=== PATIENT | male | born 1960 | race Caucasian/White ===

== ENCOUNTER → 2018-03-06 16:19 | Outpatient (CLI) | payer BC, SELFPAY ==
[2018-03-06 17:34] LABS: ALB/GLOB Ratio 1.3 RATIO (0.9-2.4); AST(SGOT) 26 U/L (15-37); Alanine Aminotransfer ALT/SGPT 54 U/L (16-61); Albumin, Serum 4.4 g/dL (3.2-5.0); Alkaline Phosphatase 49 U/L (45-117); Anion Gap 10 (5-15); BUN 15 mg/dL (7-18); BUN/Creat Ratio 15.4 RATIO (10-20); Calcium,Total 9.1 mg/dL (8.5-10.1); Chloride 107 mmol/L (98-107); Cholesterol 159 mg/dL (200); Creatinine, Serum 0.97 mg/dL (0.70-1.30); EST Glomerular Filtration Rate 85 mL/min (>60); Est Glom Filt Rate - Afr Amer 103 mL/min (>60); Globulin 3.5 g/dL (2.2-4.2); Glucose 149 mg/dL (74-106); High Density Lipoprotein 35 mg/dL; Protein, Total 7.9 g/dL (6.4-8.2); Sodium Level 140 mmol/L (136-145); Triglycerides 194 mg/dL; Very Low Density Lipoprotein 39 mg/dL (5-40)
[2018-03-06 17:42] LABS: Hemoglobin A1c 7.3 % (4.2-6.3)
== END ==
PROVIDERS: Family Provider Family Medicine; PCP Family Medicine; Visit Provider Family Medicine
DX: E11.9 Type 2 diabetes mellitus without complications (principal); I10 Essential (primary) hypertension; E66.01 Morbid (severe) obesity due to excess calories; R73.9 Hyperglycemia, unspecified
CPT/HCPCS: 36415; 80053; 80061; 82043; 82570; 83036

== ENCOUNTER → 2018-07-11 16:00 | Outpatient (CLI) | payer BC, SELFPAY ==
[2016-02-15 14:44] VITALS: BMI 38.7
[2018-07-11 17:28] LABS: ALB/GLOB Ratio 1.3 RATIO (0.9-2.4); AST(SGOT) 29 U/L (15-37); Alanine Aminotransfer ALT/SGPT 48 U/L (16-61); Albumin, Serum 4.4 g/dL (3.2-5.0); Alkaline Phosphatase 43 U/L (45-117); Anion Gap 11 (5-15); BUN 12 mg/dL (7-18); BUN/Creat Ratio 14.2 RATIO (10-20); Chloride 103 mmol/L (98-107); Cholesterol 166 mg/dL (200); Creatinine, Serum 0.85 mg/dL (0.70-1.30); EST Glomerular Filtration Rate 99 mL/min (>60); Est Glom Filt Rate - Afr Amer 120 mL/min (>60); Globulin 3.3 g/dL (2.2-4.2); Glucose 129 mg/dL (74-106); High Density Lipoprotein 42 mg/dL; Protein, Total 7.7 g/dL (6.4-8.2); Sodium Level 138 mmol/L (136-145); Triglycerides 127 mg/dL; Very Low Density Lipoprotein 25 mg/dL (5-40)
[2018-07-11 17:32] LABS: Hemoglobin A1c 7.8 % (4.2-6.3)
[2018-07-11 17:39] LABS: Microalbumin,Random Urine 51.8 mg/L (NO RANGE EST.); Microalbumin:Creatinine Ratio 236.5 mg/g CRE (<30 mg/g CRE)
== END ==
PROVIDERS: Family Provider Family Medicine; PCP Family Medicine; Referring Provider Family Medicine; Visit Provider Family Medicine
DX: I10 Essential (primary) hypertension (principal); E11.21 Type 2 diabetes mellitus with diabetic nephropathy
CPT/HCPCS: 36415; 80053; 80061; 82043; 82570; 83036

== ENCOUNTER 2022-12-08 16:44 | Inpatient (IN) | payer OTHER, SELFPAY ==
[2022-12-08] VITALS (9 sets, daily range): BP systolic 134–192; BP diastolic 88–111; PULSE 82–99; RESP 12–22; TEMP 35.4–37.1; O2SAT 93–99; BMI 38.5; BMI 38.9
--- NOTE | 2022-12-08 16:59 | CT_ITS ---
STUDY: CT ABDOMEN AND PELVIS WITH CONTRAST REASON FOR EXAM: Male, 62 years old. abdominal pain RADIATION DOSAGE (If Supplied By Facility): CTDIvol = ( 33.00 ) mGy, DLP = ( 1821.63 ) mGycm TECHNIQUE: Transaxial images were obtained from the dome of the diaphragm to the symphysis pubis without oral contrast. IV 100mL Isovue-300 was administered. Sagittal and coronal images were reconstructed. Individualized dose optimization techniques were used for this CT. COMPARISON: 02/08/2016 FINDINGS: The visualized lung bases are unremarkable. The visualized portions of the heart are within normal limits. Normal liver. There is non-visualization of the gallbladder, which may be secondary to either contraction or a prior cholecystectomy. Normal spleen. Normal pancreas. Normal bilateral adrenal glands. Normal right kidney. Normal left kidney. There is a small hiatal hernia. Normal small intestine. Normal colon. The appendix is visualized and appears normal. Normal abdominal aorta. Normal inferior vena cava. Normal retroperitoneum. Normal urinary bladder. Normal abdominal wall. Normal osseous structures. CT/Abdomen/Pelvis W IV Cont ONLY IMPRESSION: No acute abnormality. Small hiatal hernia. Electronically Signed: Cristopher Thomas MD at 19:29 EDT ,
[2022-12-08] MEDS: Morphine 4 MG/ML Syringe IV (17:06)
[2022-12-08] MEDS: Ondansetron 4 MG/2 ML Vial IV ×2 (17:06→21:07)
[2022-12-08] MEDS: 0.9% Normal Saline 1,000 ML 1000 ML IV (17:06)
--- NOTE | 2022-12-08 17:14 | EDS_ITS ---
HPI <MARIS Weber - Last Filed: 12/08/22 21:07> History of Present Illness Chief Complaint: Nausea/Vomiting Narrative Narrative: Patient is a 62-year-old male with history of type 2 diabetes who presents to the emergency department with 3 days of abdominal pain, nausea, vomiting, diarrhea. Patient states he had severe diarrhea 3 days ago, he felt better on the second day, however then he developed severe vomiting, today he went to work, started having lower abdominal pain and continued to have vomiting. Patient states that he became very sweaty, the pain was severe and is here for evaluation. PFS <MARIS Weber - Last Filed: 12/08/22 21:07> [facility] Medical History (Updated 12/08/22 @ 21:05 by MARIS Weber) Type 2 diabetes mellitus Home Medications metformin 500 mg tablet 500 mg PO BIDCM 09/28/15 [History Last Taken 11/13/15] pantoprazole 40 mg tablet,delayed release 40 mg PO DAILY 11/22/15 [History Last Taken Unknown] promethazine 25 mg tablet 25 mg PO Q6H PRN PRN Nausea ##10 02/08/16 [Rx Last Taken Unknown] azithromycin 500 mg tablet (Zithromax) 500 mg PO DAILY #3 tabs 02/15/16 [Rx Last Taken Unknown] dicyclomine 10 mg capsule 20 mg (2 x 10 mg) PO TIDAC ##20 02/15/16 [Rx Last Taken Unknown] magnesium citrate 300 ml PO X1 #300 mL 02/15/16 [Rx Last Taken Unknown] ondansetron 4 mg disintegrating tablet 4 mg PO Q8H PRN PRN Nausea #10 tabs 02/15/16 [Rx Last Taken Unknown] dicyclomine 20 mg tablet 20 mg PO TID #20 tabs 12/08/22 [Rx Last Taken Unknown] ondansetron 4 mg disintegrating tablet 4 mg PO Q8H PRN PRN Nausea #14 tabs 12/08/22 [Rx Last Taken Unknown] Allergy/AdvReac Type Severity Reaction Status Date / Time No Known Allergies Allergy Verified 12/08/22 16:45 Surgical History (Updated 12/08/22 @ 17:11 by Waldemar Lai) History of cholecystectomy Social History Smoking Status: Former smoker ROS <MARIS Weber - Last Filed: 12/08/22 21:07> ROS ED ROS Narrative Constitutional: Negative for fever, weight loss, weakness. Positive for chills Eyes: Negative for vision loss, vision change, double vision ENT: Negative for any sore throat, ear pain, congestion Cardiovascular: Negative for any chest pain, tightness, palpitations Respiratory: Negative for any cough, sputum production, hemoptysis, dyspnea, dyspnea on exertion, orthopnea Gastrointestinal: Negative for any constipation, blood in stool, blood in vomit. Positive for abdominal pain, nausea, vomiting, diarrhea : Negative for any urinary frequency, dysuria, retention, blood in urine Muscle skeletal: Negative for any muscle joint pain, stiffness, myalgias, arthralgias, neck pain, back pain Neurological: Negative for any headache, syncope, numbness or tingling, dizziness Skin: Negative for any rashes, lumps, itching, abrasions, lacerations Psychiatric: Negative for any depression, anxiety, stress, suicidal ideation, homicidal ideation Hematologic: Negative for any easy bruising, excessive bruising, easy bleeding Allergies: Negative for any eczema, hives, rash EXAM <MARIS Weber - Last Filed: 12/08/22 21:07> Physical Exam Narrative Exam Narrative: Vital signs reviewed. Patient on initial evaluation does appear to be in mild distress secondary to pain to his abdomen. Patient is diaphoretic. He is alert and orient x4. HEET: Head normocephalic atraumatic, TMs clear bilaterally. Posterior pharynx is clear, moist mucous membranes. Nares clear bilaterally. Neck: Supple with no lymphadenopathy or tenderness. No signs of meningismus, negative jolt sign. Cardiac: Regular rate and rhythm no murmurs gallops or rubs, equal peripheral pulses bilaterally. Respiratory: Lungs clear to auscultation bilaterally. No chest tenderness. Abdomen: Soft, nondistended. No abdominal bruit or pulsatile masses. No hepatosplenomegaly. Tenderness to the periumbilical area as well as the left lower quadrant. Negative for any peritoneal signs. Extremities: No peripheral edema, no signs of gross trauma or deformity. Active full range of motion of all extremities. Neuro: Cranial nerves II through XII intact, no focal neurological deficits. Skin: Clean dry and intact with no rash, purpura, petechiae, vesicles or pustules. Backs/flank: No CVA tenderness, no midline spinal tenderness, no deformity. Psych: Normal mood and affect. No SI, HI or acute psychosis. Const Vital Signs: 12/08/22 16:45 12/08/22 18:07 12/08/22 18:34 Temperature 95.7 F L 98.3 F 98.8 F Temperature Source Temporal Oral Oral Pulse Rate 82 87 87 Respiratory Rate 22 H 12 12 Blood Pressure 185/94 H 134/111 H 192/104 H Blood Pressure Mean 124 118 133 Pulse Ox 98 98 93 Oxygen Delivery Method Room Air Nasal Cannula Nasal Cannula Oxygen Flow Rate (L/min) 2 2 12/08/22 20:00 Temperature 98.2 F Temperature Source Oral Pulse Rate 94 Respiratory Rate 16 Blood Pressure 184/95 H Blood Pressure Mean 124 Pulse Ox 99 Oxygen Delivery Method Nasal Cannula Oxygen Flow Rate (L/min) 1 Positive well nourished and well developed General Appearance ED: well developed <Dr. Rosanna Abraham MD - Last Filed: 12/08/22 21:54> Physical Exam Const Vital Signs: 12/08/22 16:45 12/08/22 18:07 12/08/22 18:34 Temperature 95.7 F L 98.3 F 98.8 F Temperature Source Temporal Oral Oral Pulse Rate 82 87 87 Respiratory Rate 22 H 12 12 Blood Pressure 185/94 H 134/111 H 192/104 H Blood Pressure Mean 124 118 133 Pulse Ox 98 98 93 Oxygen Delivery Method Room Air Nasal Cannula Nasal Cannula Oxygen Flow Rate (L/min) 2 2 12/08/22 20:00 Temperature 98.2 F Temperature Source Oral Pulse Rate 94 Respiratory Rate 16 Blood Pressure 184/95 H Blood Pressure Mean 124 Pulse Ox 99 Oxygen Delivery Method Nasal Cannula Oxygen Flow Rate (L/min) 1 [facility] <MARIS Weber - Last Filed: 12/08/22 21:07> [facility] Lab Data Labs: Laboratory Results - last 24 hr 12/08/22 12/08/22 12/08/22 17:05 17:26 18:35 WBC 6.6 RBC 5.11 Hgb 16.0 Hct 45.9 MCV 89.8 MCH 31.3 MCHC 34.9 RDW Std Deviation 37.2 RDW Coeff of Billy 11.3 L Plt Count 175 MPV 10.8 Immature Gran % (Auto) 0.500 Neut % (Auto) 68.1 Lymph % (Auto) 21.1 [place] % (Auto) 8.9 Eos % (Auto) 0.6 Baso % (Auto) 0.8 Absolute Neuts (auto) 4.5 Absolute Lymphs (auto) 1.38 Nucleated RBC % 0 Sodium 136 Potassium 4.4 Chloride 102 Carbon Dioxide 25.0 Anion Gap 9 BUN 20 H Creatinine 1.20 Estim Creat Clear Calc 68.85 Est GFR (MDRD) Af Amer 79 Est GFR (MDRD) Non-Af 65 BUN/Creatinine Ratio 16.7 Glucose 260 H Lactic Acid 2.5 H* Calcium 10.0 Total Bilirubin 1.30 H AST 20 ALT 29 Alkaline Phosphatase 54 Total Protein 7.9 Albumin 4.3 Globulin 3.6 Albumin/Globulin Ratio 1.2 Lipase 76 H Urine Color Yellow Urine Clarity Sl. Cloudy Urine pH 7.0 Ur Specific [place] 1.010 Urine Protein 30 H Urine Glucose (UA) 1000 H Urine Ketones 50 H Urine Occult Blood 10 H Urine Nitrite Negative Urine Bilirubin Negative Urine Urobilinogen Normal Ur Leukocyte Esterase Negative Urine RBC 0 SEEN Urine WBC 0 SEEN Ur Squamous Epith Cells 0 SEEN Urine Bacteria 0 SEEN Urine Mucus 0 SEEN POC Glucose 275 H 12/08/22 21:20 WBC RBC Hgb Hct MCV MCH MCHC RDW Std Deviation RDW Coeff of Billy Plt Count MPV Immature Gran % (Auto) Neut % (Auto) Lymph % (Auto) [place] % (Auto) Eos % (Auto) Baso % (Auto) Absolute Neuts (auto) Absolute Lymphs (auto) Nucleated RBC % Sodium Potassium Chloride Carbon Dioxide Anion Gap BUN Creatinine Estim Creat Clear Calc Est GFR (MDRD) Af Amer Est GFR (MDRD) Non-Af BUN/Creatinine Ratio Glucose Lactic Acid 1.8 Calcium Total Bilirubin AST ALT Alkaline Phosphatase Total Protein Albumin Globulin Albumin/Globulin Ratio Lipase Urine Color Urine Clarity Urine pH Ur Specific [place] Urine Protein Urine Glucose (UA) Urine Ketones Urine Occult Blood Urine Nitrite Urine Bilirubin Urine Urobilinogen Ur Leukocyte Esterase Urine RBC Urine WBC Ur Squamous Epith Cells Urine Bacteria Urine Mucus POC Glucose Radiography Diagnostic Testing: Clinical Impression(s) from Imaging Studies Abdomen/Pelvis CT 12/08/22 16:59 IMPRESSION: No acute abnormality. Small hiatal hernia. Electronically Signed: Cristopher Thomas MD at 19:29 EDT , Treatment and Re-Evaluation :: Patient appears to be in mild distress secondary to abdominal pain. Patient presents to the emerged from abdominal pain, nausea, vomiting of diarrhea for last 3 days. Patient will have a full abdominal work-up. This to include laboratory values acute lactic acid. Patient also received a CT scan of the abdomen pelvis concerning for any diverticulitis, bowel obstruction. Patient laboratory values show normal CBC, patient's chemistry showed a BUN of 20, creatinine unremarkable. Glucose 260, patient's lactic acid was elevated 2.5. Total bilirubin 1.3. Lipase was 76. Patient did receive a CT scan of the abdomen pelvis, this showed no acute abnormality, small hiatal hernia. Patient's urinalysis shows no infection. On reevaluation, the patient still had nausea. Patient was given morphine, Zofran, Phenergan. On reassessment, the patient's blood pressure is improved. Patient states he still feels nauseated. Patient was redosed with IV Zofran, 1 more liter normal saline IV. On reassessment, the patient was feeling better, the patient is able to pass a p.o. challenge. At this time, there is no evidence suspect any appendicitis, bowel obstruction, diverticulitis, pancreatitis. Patient be diagnosed with gastroenteritis, we placed on Bentyl, Zofran. He is instructed to maintain hydration, and follow-up with his PCP regarding his blood pressure today. Patient is happy with the plan of care, all questions given. Patient stable for discharge <Dr. Rosanna Abraham MD - Last Filed: 12/08/22 21:54> [facility] Lab Data Labs: Laboratory Results - last 24 hr 12/08/22 12/08/22 12/08/22 17:05 17:26 18:35 WBC 6.6 RBC 5.11 Hgb 16.0 Hct 45.9 MCV 89.8 MCH 31.3 MCHC 34.9 RDW Std Deviation 37.2 RDW Coeff of Billy 11.3 L Plt Count 175 MPV 10.8 Immature Gran % (Auto) 0.500 Neut % (Auto) 68.1 Lymph % (Auto) 21.1 [place] % (Auto) 8.9 Eos % (Auto) 0.6 Baso % (Auto) 0.8 Absolute Neuts (auto) 4.5 Absolute Lymphs (auto) 1.38 Nucleated RBC % 0 Sodium 136 Potassium 4.4 Chloride 102 Carbon Dioxide 25.0 Anion Gap 9 BUN 20 H Creatinine 1.20 Estim Creat Clear Calc 68.85 Est GFR (MDRD) Af Amer 79 Est GFR (MDRD) Non-Af 65 BUN/Creatinine Ratio 16.7 Glucose 260 H Lactic Acid 2.5 H* Calcium 10.0 Total Bilirubin 1.30 H AST 20 ALT 29 Alkaline Phosphatase 54 Total Protein 7.9 Albumin 4.3 Globulin 3.6 Albumin/Globulin Ratio 1.2 Lipase 76 H Urine Color Yellow Urine Clarity Sl. Cloudy Urine pH 7.0 Ur Specific [place] 1.010 Urine Protein 30 H Urine Glucose (UA) 1000 H Urine Ketones 50 H Urine Occult Blood 10 H Urine Nitrite Negative Urine Bilirubin Negative Urine Urobilinogen Normal Ur Leukocyte Esterase Negative Urine RBC 0 SEEN Urine WBC 0 SEEN Ur Squamous Epith Cells 0 SEEN Urine Bacteria 0 SEEN Urine Mucus 0 SEEN POC Glucose 275 H 12/08/22 21:20 WBC RBC Hgb Hct MCV MCH MCHC RDW Std Deviation RDW Coeff of Billy Plt Count MPV Immature Gran % (Auto) Neut % (Auto) Lymph % (Auto) [place] % (Auto) Eos % (Auto) Baso % (Auto) Absolute Neuts (auto) Absolute Lymphs (auto) Nucleated RBC % Sodium Potassium Chloride Carbon Dioxide Anion Gap BUN Creatinine Estim Creat Clear Calc Est GFR (MDRD) Af Amer Est GFR (MDRD) Non-Af BUN/Creatinine Ratio Glucose Lactic Acid 1.8 Calcium Total Bilirubin AST ALT Alkaline Phosphatase Total Protein Albumin Globulin Albumin/Globulin Ratio Lipase Urine Color Urine Clarity Urine pH Ur Specific [place] Urine Protein Urine Glucose (UA) Urine Ketones Urine Occult Blood Urine Nitrite Urine Bilirubin Urine Urobilinogen Ur Leukocyte Esterase Urine RBC Urine WBC Ur Squamous Epith Cells Urine Bacteria Urine Mucus POC Glucose Radiography Diagnostic Testing: Clinical Impression(s) from Imaging Studies Abdomen/Pelvis CT 12/08/22 16:59 IMPRESSION: No acute abnormality. Small hiatal hernia. Electronically Signed: Cristopher Thomas MD at 19:29 EDT , Treatment and Re-Evaluation :: Patient appears to be in mild distress secondary to abdominal pain. Patient presents to the emerged from abdominal pain, nausea, vomiting of diarrhea for last 3 days. Patient will have a full abdominal work-up. This to include laboratory values acute lactic acid. Patient also received a CT scan of the abdomen pelvis concerning for any diverticulitis, bowel obstruction. Patient laboratory values show normal CBC, patient's chemistry showed a BUN of 20, creatinine unremarkable. Glucose 260, patient's lactic acid was elevated 2.5. Total bilirubin 1.3. Lipase was 76. Patient did receive a CT scan of the abdomen pelvis, this showed no acute abnormality, small hiatal hernia. Patient's urinalysis shows no infection. On reevaluation, the patient still had nausea. Patient was given morphine, Zofran, Phenergan. On reassessment, the patient's blood pressure is improved. Patient states he still feels nauseated. Patient was redosed with IV Zofran, 1 more liter normal saline IV. Patient seen and evaluated with [facility]. I personally interviewed and examined the patient. I was involved in all aspects of patient's orders, interpretation of results, and treatment. Patient presents with recent gastro symptoms. He has had recent nausea, vomiting, and diarrhea. He thought he is improved and went back to work today. He developed nausea and vomiting again and presents to the emergency room. He does complain of some lower abdominal cramping. No fever. Only prior abdominal surgery was a cholecystectomy. Patient sitting upright in bed. He appears pale and diaphoretic. Head and neck examination unremarkable. Heart is regular rate and rhythm. Lung sounds are clear. Abdomen is soft, obese, minimal lower abdominal tenderness. No guarding or rebound. CBC was normal white count at 6.6 with hemoglobin of 16. LFTs are unremarkable. Creatinine is 1.2. Glucose is 260. Lactic acid is elevated at 2.5. Lipase is 76. Urinalysis reveals no evidence of acute infection with 50 ketones. After being medicated with morphine and Zofran patient did develop some mild hypoxia associated with sedation. He was placed on nasal cannula for short time. Due to continued nausea he was given Phenergan. CT scan of the abdomen and pelvis with IV contrast reveals no acute findings. Again due to continued nausea he received Zofran and another liter of fluid. Repeat lactic acid is improved to 1.8. At this time patient sitting at the side of the bed. He continues to feel nauseated and has not been able to tolerate p.o. Having been given 3 rounds of nausea medication and still feeling quite nauseated I will speak with hospitalist regarding observation overnight. Patient was also noted to be quite hypertensive with systolic blood pressures in the 190 range. He was given a single dose of hydralazine which improved his blood pressure to the 160s for a time. He states his blood pressure normally runs on the high end of normal. This will need to be closely monitored as well. Discharge Plan Dx/Rx/DC Orders Clinical Impression: Nausea & vomiting, Abdominal pain, Hypertension Disposition Disposition: Acute Care Hospital [facility]
[2022-12-08 17:20] LABS: Absolute Lymphocyte Count 1.38 X10^3/uL (0.83-4.51); Absolute Neutrophil Count 4.5 X10^3/uL (2.0-7.7); Basophil# 0.05 X10^3/uL; Basophil% 0.8 % (0-1); Eosinophil# 0.04 X10^3/uL; Eosinophils% 0.6 % (0-5); Hematocrit 45.9 % (40-54); Lymphocyte # 1.38 X10^3/ul (0.83-4.51); Lymphocyte % 21.1 % (19-41); Mean Corp Hgb Conc 34.9 g/dL (32-36); Mean Corpuscular Hgb 31.3 pg (27.0-32.0); Mean Corpuscular Volume 89.8 fL (80-94); Mean Platelet Vol. 10.8 fl (6.2-12.0); Monocyte# 0.58 X10^3/uL; Monocyte% 8.9 % (0-10); NRBC Flagged by Analyzer 0 % (0-5); Neutrophil # 4.47 X10^3/uL (2.7-7.7); Neutrophil % 68.1 % (47-70); Platelet Count 175 K/mm3 (150-450); RBC Distribution Width CV 11.3 % (11.6-14.6); RBC Distribution Width SD 37.2 fl (35.1-43.9); Red Blood Count 5.11 M/mm3 (4.6-6.2); White Blood Count 6.6 K/mm3 (4.4-11.0)
[2022-12-08 17:30] LABS: ALB/GLOB Ratio 1.2 RATIO (0.9-2.4); AST(SGOT) 20 U/L (15-37); Alanine Aminotransfer ALT/SGPT 29 U/L (16-61); Albumin, Serum 4.3 g/dL (3.2-5.0); Alkaline Phosphatase 54 U/L (45-117); Anion Gap 9 (5-15); BUN 20 mg/dL (7-18); BUN/Creat Ratio 16.7 RATIO (10-20); Chloride 102 mmol/L (98-107); EST Glomerular Filtration Rate 65 mL/min (>60); Est Glom Filt Rate - Afr Amer 79 mL/min (>60); Estimated Creatinine Clearance 68.85 ml/min; Globulin 3.6 g/dL (2.2-4.2); Glucose 260 mg/dL (74-106); Lipase 76 U/L (13-75); Potassium 4.4 mmol/L (3.5-5.1); Protein, Total 7.9 g/dL (6.4-8.2); Sodium Level 136 mmol/L (136-145)
[2022-12-08] MEDS: proMETHazine 25 MG/ML Syringe 12.5 MG IM (17:34)
[2022-12-08 17:47] LABS: Bedside Glucose 275 mg/dL (74-106)
[2022-12-08 18:02] LABS: Lactic Acid 2.5 mmol/L (0.4-1.9)
[2022-12-08 18:38] LABS: Bacteria 0 SEEN /hpf (None Seen); Mucous, Urine 0 SEEN /hpf (<or=2+); Red Blood Cells-Urine 0 SEEN /hpf (0-5); Squamous Epithelial Cells - UA 0 SEEN /hpf (0-5); White Blood Cells 0 SEEN /hpf (0-5)
[2022-12-08 18:39] LABS: Color, Urine Yellow (Yellow); Glucose, Dipstick 1000 mg/dl (Normal); Ketone-Dipstick 50 mg/dl (Negative); Leukocyte Esterase-Dipstick Negative /ul (Negative); Nitrite-Dipstick Negative (Negative); Occult Blood-Urine 10 /ul (Negative); Protein-Dipstick 30 mg/dl (Negative); Urine Bilirubin Dipstick Negative (Negative); Urine Clarity Sl. Cloudy (Clear); Urine Urobilinogen Normal (Normal)
[2022-12-08] MEDS: hydrALAZINE 20 MG/ML Vial 10 MG IV ×2 (19:04→23:58)
[2022-12-08 21:08] LABS: Reflex Lactate? Y
[2022-12-08] MEDS: 0.9% Normal Saline 1,000 ML 999 ML IV (21:09)
[2022-12-08 21:50] LABS: Lactic Acid 1.8 mmol/L (0.4-1.9)
--- NOTE | 2022-12-08 22:03 | HP.PCM.HOS_ITS ---
HPI - General General Date of Admission: 12/08/22 Date of Service: 12/08/22 Chief Complaint: Intractable N/V/D, abdominal pain. HPI Narrative The patient is a 62 y/o M w/ PMHx: GERD, Former tobacco use, Obesity, Diabetes mellitus type II, HTN, JUANA who presents to the [facility] ED on 12/08/22 with history of 3 days of persistent abdominal discomfort, nausea, emesis and loose stools with more severe diarrhea approximately 3 days ago with improvement of his loose stools however he then developed significant vomiting and on day of presentation had worsening lower abdominal discomfort with pain so severe he reports being at work and becoming very diaphoretic prompting ED evaluation. He notes he had a soft bowel movement today and it appears to be normalizing. He does still have abdominal discomfort primarily epigastric and proximal to his umbilicus described as aching, worse with palpation. He does state he has had hiccups today frequently. Work-up in the ED included T95.7 Temporally with most recent 98.2 orally, heart rate 82, BP 185/94, respiratory rate 22, 98% on room air however most recent assessment BP 184/95, respiratory rate 16, 99% on 1 L nasal cannula, CBC with WC 6.6, hemoglobin 16, platelet 175 without marked shift, CMP with BUN/creatinine 20/1.20, anion gap 9, glucose 260, initial lactic acid 2.5 and repeat following ED interventions and hydration 1.8, T. bili 1.30 otherwise hepatic profile unremarkable, lipase 76, urinalysis with specific gravity 1.010, protein 30, glucose 1000, ketone 50, occult blood 10 with no obvious evidence of UTI, CT abdomen and pelvis with no acute intra-abdominal findings and incidentally noted small hiatal hernia. In the ED patient ministered 2 L normal saline, hydralazine 10 mg IV x1, morphine 4 mg IV x1, Zofran 4 mg IV x2, Phenergan 12.5 mg IM x1. [facility] Medical History (Updated 12/08/22 @ 22:[address] Kate Carrion MD) Former tobacco use GERD (gastroesophageal reflux disease) Hypertension Obesity JUANA (obstructive sleep apnea) Type 2 diabetes mellitus Home Medications metformin 500 mg tablet 500 mg PO BIDCM 09/28/15 [History Last Taken 11/13/15] pantoprazole 40 mg tablet,delayed release 40 mg PO DAILY 11/22/15 [History Last Taken Unknown] promethazine 25 mg tablet 25 mg PO Q6H PRN PRN Nausea ##10 02/08/16 [Rx Last Taken Unknown] azithromycin 500 mg tablet (Zithromax) 500 mg PO DAILY #3 tabs 02/15/16 [Rx Last Taken Unknown] dicyclomine 10 mg capsule 20 mg (2 x 10 mg) PO TIDAC ##20 02/15/16 [Rx Last Taken Unknown] magnesium citrate 300 ml PO X1 #300 mL 02/15/16 [Rx Last Taken Unknown] ondansetron 4 mg disintegrating tablet 4 mg PO Q8H PRN PRN Nausea #10 tabs 0 02/15/16 [Rx Last Taken Unknown] dicyclomine 20 mg tablet 20 mg PO TID #20 tabs 12/08/22 [Rx Last Taken Unknown] ondansetron 4 mg disintegrating tablet 4 mg PO Q8H PRN PRN Nausea #14 tabs 12/08/22 [Rx Last Taken Unknown] Allergy/AdvReac Type Severity Reaction Status Date / Time No Known Allergies Allergy Verified 12/08/22 16:45 Family History (Updated 12/08/22 @ 22:[address] Kate Carrion MD) Mother Diabetes Heart disease Cancer Father No problems noted. Surgical History (Updated 12/08/22 @ 22:[address] Kate Carrion MD) History of cholecystectomy History of surgery on lower extremity Social History (Updated 12/08/22 @ 23:[address] Kate Carrion MD) household members: other details: Notes his son lives with him. Smoking Status: Former smoker alcohol intake: never substance use type: does not use ROS ROS Narrative Admission Review of Systems: CONSTITUTIONAL: No weight loss, fever, chills, + weakness or fatigue. HEENT: Eyes: No visual loss, blurred vision, double vision or yellow sclerae. Ears, Nose, Throat: No hearing loss, sneezing, congestion, runny nose or sore throat. SKIN: No rash or itching, lesions, wounds. CARDIOVASCULAR: No chest pain, chest pressure or chest discomfort, palpitations, edema, orthopnea, syncopal events. RESPIRATORY: No shortness of breath, cough or sputum, wheezing, hemoptysis. GASTROINTESTINAL: + anorexia, nausea, vomiting, diarrhea, abdominal pain, hiccups intermittently, No melena, BRBPR. GENITOURINARY: No dysuria, frequency, urgency or retention. NEUROLOGICAL: No headache, dizziness, syncope, paralysis, ataxia, numbness or tingling in the extremities, focal weakness, change in bowel or bladder control, seizure. MUSCULOSKELETAL: No muscle, back pain, joint pain or stiffness. HEMATOLOGIC: No anemia, bleeding or bruising. LYMPHATICS: No enlarged nodes. No history of splenectomy. PSYCHIATRIC: No history of depression or anxiety. ENDOCRINOLOGIC: + reports of sweating. No cold or heat intolerance. No polyuria or polydipsia. ALLERGIES: No history of asthma, hives, eczema or rhinitis. Vital Signs Vital Signs Vital Signs: 12/08/22 16:45 12/08/22 18:07 12/08/22 18:34 Temperature 95.7 F L 98.3 F 98.8 F Temperature Source Temporal Oral Oral Pulse Rate 82 87 87 Respiratory Rate 22 H 12 12 Blood Pressure 185/94 H 134/111 H 192/104 H Blood Pressure Mean 124 118 133 Pulse Ox 98 98 93 Oxygen Delivery Method Room Air Nasal Cannula Nasal Cannula Oxygen Flow Rate (L/min) 2 2 12/08/22 20:00 Temperature 98.2 F Temperature Source Oral Pulse Rate 94 Respiratory Rate 16 Blood Pressure 184/95 H Blood Pressure Mean 124 Pulse Ox 99 Oxygen Delivery Method Nasal Cannula Oxygen Flow Rate (L/min) 1 Weight Weight: 276 lb 3.827 oz Body Mass Index (BMI) 38.5 Physical Exam Narrative Physical Examination: General: Awake, alert, oriented x 3 and cooperative, seated upright in ED chair, fatigued, ill appearing. Skin: Mildly diaphoretic, mildly flushed color, normal turgor, no icterus, no cyanosis. HEENT: AT/NC, EOMI, PERRLA, dry MM, no carotid bruits or JVD noted. Lungs: CTA bilaterally, moderate effort, mild decrease BL bases, no rales, ronchi or wheezing. Heart: Regular rate and rhythm; no gallop, rub audible. Abdomen: Soft, obese, mild discomfort to palpation epigastric and above the umbilicus region, no rebound or guarding, no obvious marked distention, hyperactive BS, no HSM although habitus does make evaluation difficult. Extremities: No cyanosis, clubbing, or edema. Neurological: Patient awake, alert, oriented as noted, cognitive function intact; pupils equally reactive to light and accommodation, cranial nerves II- XII grossly normal, moving all 4 extremities, no focal deficits, strength moderately globally decreased secondary to acute complaints. Psychiatric: Affect appears fatigued, ill appearing, no acute evidence of depressive or anxiety feelings. Results Lab / Micro Data 12/08/22 17:05 12/08/22 17:05 Labs: Laboratory Results - last 24 hr 12/08/22 17:05: WBC 6.6, RBC 5.11, Hgb 16.0, Hct 45.9, MCV 89.8, MCH 31.3, MCHC 34.9, RDW Std Deviation 37.2, RDW Coeff of Billy 11.3 L, Plt Count 175, MPV 10.8, Immature Gran % (Auto) 0.500, Neut % (Auto) 68.1, Lymph % (Auto) 21.1, [place] % (Auto) 8.9, Eos % (Auto) 0.6, Baso % (Auto) 0.8, Absolute Neuts (auto) 4.5, Absolute Lymphs (auto) 1.38, Nucleated RBC % 0, Sodium 136, Potassium 4.4, Chloride 102, Carbon Dioxide 25.0, Anion Gap 9, BUN 20 H, Creatinine 1.20, Estim Creat Clear Calc 68.85, Est GFR (MDRD) Af Amer 79, Est GFR (MDRD) Non-Af 65, BUN/Creatinine Ratio 16.7, Glucose 260 H, Lactic Acid 2.5 H*, Calcium 10.0, Total Bilirubin 1.30 H, AST 20, ALT 29, Alkaline Phosphatase 54, Total Protein 7.9, Albumin 4.3, Globulin 3.6, Albumin/Globulin Ratio 1.2, Lipase 76 H 12/08/22 17:26: POC Glucose 275 H 12/08/22 18:35: Urine Color Yellow, Urine Clarity Sl. Cloudy, Urine pH 7.0, Ur Specific [place] 1.010, Urine Protein 30 H, Urine Glucose (UA) 1000 H, Urine Ketones 50 H, Urine Occult Blood 10 H, Urine Nitrite Negative, Urine Bilirubin Negative, Urine Urobilinogen Normal, Ur Leukocyte Esterase Negative, Urine RBC 0 SEEN, Urine WBC 0 SEEN, Ur Squamous Epith Cells 0 SEEN, Urine Bacteria 0 SEEN, Urine Mucus 0 SEEN 12/08/22 21:20: Lactic Acid 1.8 Radiology Impression Abdomen/Pelvis CT 12/08/22 16:59 IMPRESSION: No acute abnormality. Small hiatal hernia. Electronically Signed: Cristopher Thomas MD at 19:29 EDT , Assessment & Plan Assessment/Plan (1) Nausea & vomiting: PLAN: Plan The patient is a 62 y/o M w/ PMHx: GERD, Former tobacco use, Obesity, Diabetes mellitus type II, HTN, JUANA who presents to the [facility] ED on 12/08/22 with history of 3 days of persistent abdominal discomfort, nausea, emesis and loose stools with more severe diarrhea approximately 3 days ago with improvement of his loose stools however he then developed significant vomiting and on day of presentation had worsening lower abdominal discomfort with pain so severe he reports being at work and becoming very diaphoretic prompting ED evaluation. #1. Abdominal pain, Nausea, Emesis, Diarrhea, Intractable, Unclear etiology, possibly Acute Gastroenteritis with Acute Lactic Acidosis secondary to associated dehydration: CT abdomen and pelvis with no acute intra-abdominal findings and incidentally noted small hiatal hernia. Will admit to [facility], will place on IV PPI, allow clears if improving and ADAT, PRN antiemetics, PRN pain regimen, continue aggressive hydration, will obtain c diff, stool cx, O+P with repeat AM CBC. If recurrent hiccups will have thorazine as needed. Will request troponin x 1. #2. Hypertension: History noted previously, from most recent home medication list attempted to be pulled from outpatient not on regimen, clarifying, as needed IV hydralazine in interim. #3. Diabetes mellitus type II: Hold oral home regimen, given acute presentation initiating on clears to start with advance diet as tolerated, maintain until oral intake improved on q 6h accu checks w/ ISS. #4. Obesity: Weight loss and lifestyle changes encouraged. #5. Former tobacco use: Encourage continued tobacco cessation. #6. GERD: We will maintain on IV PPI until oral intake assured/improved. #7. JUANA: Given recent intractable N/V, will hold q HS CPAP for now and may use supplemental oxygen as needed. #8. DVT prophylaxis: Low risk for current presentation, encourage ambulation. #9. CODE STATUS: Full Code. Patient does not have HCPOA or LW in place. Admission Evaluation Time spent evaluating chart, patient history, patient evaluation, care planning and discussion with specialists: 55 minutes. Charges/Coding Visit Charges Inpatient E&M: 05207 Init Hosp L2
[2022-12-08 23:20] LABS: Procalcitonin < 0.04 ng/mL (0.00-0.09)
[2022-12-08] MEDS: 0.9% Normal Saline 1,000 ML 100 ML IV (23:46)
[2022-12-08] MEDS: Insulin Lispro 100 UNIT/ML INSULN.PEN SC (23:48)
[2022-12-08] MEDS: proCHLORPERazine 10 MG/2 ML Vial 5 MG IV (23:56)
[2022-12-08 23:58] LABS: Troponin-I HS 28 pg/mL (3.0-78.0)
[2022-12-09] MEDS: MELATONIN 3 MG TABLET PO (00:01)
[2022-12-09 00:44] VITALS: BP 168/88; PULSE 110; RESP 22; TEMP 37.2; O2SAT 98
[2022-12-09 01:05] LABS: Bedside Glucose 271 mg/dL (74-106)
[2022-12-09] MEDS: Acetaminophen 325 MG Tablet 650 MG PO (02:44)
[2022-12-09 06:07] VITALS: BP 149/83; PULSE 100; RESP 20; TEMP 36.9; O2SAT 94
[2022-12-09 06:09] VITALS: BMI 38.7
[2022-12-09] MEDS: Insulin Lispro 100 UNIT/ML INSULN.PEN SC ×4 (06:15→23:15)
[2022-12-09 06:34] LABS: Bedside Glucose 260 mg/dL (74-106)
[2022-12-09 07:04] LABS: Absolute Lymphocyte Count 0.99 X10^3/uL (0.83-4.51); Absolute Neutrophil Count 6.1 X10^3/uL (2.0-7.7); Basophil# 0.02 X10^3/uL; Basophil% 0.3 % (0-1); Hematocrit 44.4 % (40-54); Hemoglobin 15.4 g/dL (13.0-16.5); Lymphocyte # 0.99 X10^3/ul (0.83-4.51); Lymphocyte % 12.7 % (19-41); Mean Corp Hgb Conc 34.7 g/dL (32-36); Mean Corpuscular Hgb 31.3 pg (27.0-32.0); Mean Corpuscular Volume 90.2 fL (80-94); Mean Platelet Vol. 11.1 fl (6.2-12.0); Monocyte% 7.7 % (0-10); NRBC Flagged by Analyzer 0 % (0-5); Neutrophil # 6.14 X10^3/uL (2.7-7.7); Neutrophil % 78.8 % (47-70); Platelet Count 181 K/mm3 (150-450); RBC Distribution Width CV 11.6 % (11.6-14.6); RBC Distribution Width SD 38.1 fl (35.1-43.9); Red Blood Count 4.92 M/mm3 (4.6-6.2); White Blood Count 7.8 K/mm3 (4.4-11.0)
[2022-12-09 07:30] VITALS: O2SAT 94
[2022-12-09 07:32] LABS: ALB/GLOB Ratio 1.1 RATIO (0.9-2.4); AST(SGOT) 14 U/L (15-37); Alanine Aminotransfer ALT/SGPT 24 U/L (16-61); Albumin, Serum 3.9 g/dL (3.2-5.0); Alkaline Phosphatase 48 U/L (45-117); Anion Gap 8 (5-15); BUN 18 mg/dL (7-18); BUN/Creat Ratio 17.6 RATIO (10-20); Calcium,Total 9.1 mg/dL (8.5-10.1); Chloride 105 mmol/L (98-107); Creatinine, Serum 1.02 mg/dL (0.70-1.30); EST Glomerular Filtration Rate 79 mL/min (>60); Est Glom Filt Rate - Afr Amer 95 mL/min (>60); Globulin 3.4 g/dL (2.2-4.2); Glucose 248 mg/dL (74-106); Potassium 3.8 mmol/L (3.5-5.1); Protein, Total 7.3 g/dL (6.4-8.2); Sodium Level 137 mmol/L (136-145)
--- NOTE | 2022-12-09 07:54 | PN.HOSP_ITS ---
Reason for Visit Reason for Visit: Diagnoses Nausea with vomiting, unspecified (12/08/22) Subjective Subjective Patient initially feeling better midmorning and had tolerated lunch and wanted to go home however several hours after lunch developed pain and nausea again patient was kept Objective Data Objective Data Vital Signs: Vital Signs Temp Pulse Resp BP Pulse Ox O2 Del Method O2 Flow Rate 98.4 F 100 20 H 149/83 H 94 Room Air 1 12/09/22 06:07 12/09/22 06:07 12/09/22 06:07 12/09/22 06:07 12/09/22 07:30 12/09/22 07:30 12/08/22 22:22 Oxygen Flow Rate (L/min) 1 Oxygen Delivery Method Room Air Weight: 125.827 kg Body Mass Index (BMI) 38.7 Intake & Output: Intake and Output for Last 24 Hours 12/07/22 12/08/22 12/09/22 23:59 23:59 23:59 Intake Total 1999 160 / 160 Output Total 600 / 600 Balance 1999 -440 / -440 Lab / Micro Data 12/09/22 05:26 12/09/22 05:26 Labs: Laboratory Results - last 24 hr 12/08/22 17:05: WBC 6.6, RBC 5.11, Hgb 16.0, Hct 45.9, MCV 89.8, MCH 31.3, MCHC 34.9, RDW Std Deviation 37.2, RDW Coeff of Billy 11.3 L, Plt Count 175, MPV 10.8, Immature Gran % (Auto) 0.500, Neut % (Auto) 68.1, Lymph % (Auto) 21.1, [place] % (Auto) 8.9, Eos % (Auto) 0.6, Baso % (Auto) 0.8, Absolute Neuts (auto) 4.5, Absolute Lymphs (auto) 1.38, Nucleated RBC % 0, Sodium 136, Potassium 4.4, Chlo ride 102, Carbon Dioxide 25.0, Anion Gap 9, BUN 20 H, Creatinine 1.20, Estim Creat Clear Calc 68.85, Est GFR (MDRD) Af Amer 79, Est GFR (MDRD) Non-Af 65, BUN/Creatinine Ratio 16.7, Glucose 260 H, Lactic Acid 2.5 H*, Calcium 10.0, Total Bilirubin 1.30 H, AST 20, ALT 29, Alkaline Phosphatase 54, Total Protein 7.9, Albumin 4.3, Globulin 3.6, Albumin/Globulin Ratio 1.2, Lipase 76 H 12/08/22 17:26: POC Glucose 275 H 12/08/22 18:35: Urine Color Yellow, Urine Clarity Sl. Cloudy, Urine pH 7.0, Ur Specific [place] 1.010, Urine Protein 30 H, Urine Glucose (UA) 1000 H, Urine Ketones 50 H, Urine Occult Blood 10 H, Urine Nitrite Negative, Urine Bilirubin Negative, Urine Urobilinogen Normal, Ur Leukocyte Esterase Negative, Urine RBC 0 SEEN, Urine WBC 0 SEEN, Ur Squamous Epith Cells 0 SEEN, Urine Bacteria 0 SEEN, Urine Mucus 0 SEEN 12/08/22 21:20: Lactic Acid 1.8 12/08/22 22:25: Procalcitonin < 0.04 12/08/22 23:30: Troponin I High Sens 28 12/08/22 23:42: POC Glucose 271 H 12/09/22 05:26: WBC 7.8, RBC 4.92, Hgb 15.4, Hct 44.4, MCV 90.2, MCH 31.3, MCHC 34.7, RDW Std Deviation 38.1, RDW Coeff of Billy 11.6, Plt Count 181, MPV 11.1, Immature Gran % (Auto) 0.500, Neut % (Auto) 78.8 H, Lymph % (Auto) 12.7 L, [place] % (Auto) 7.7, Eos % (Auto) 0.0, Baso % (Auto) 0.3, Absolute Neuts (auto) 6.1, Absolute Lymphs (auto) 0.99, Nucleated RBC % 0, Sodium 137, Potassium 3.8, Chloride 105, Carbon Dioxide 24.0, Anion Gap 8, BUN 18, Creatinine 1.02, Estim Creat Clear Calc 81.00, Est GFR (MDRD) Af Amer 95, Est GFR (MDRD) Non-Af 79, BUN/Creatinine Ratio 17.6, Glucose 248 H, Calcium 9.1, Total Bilirubin 1.00, AST 14 L, ALT 24, Alkaline Phosphatase 48, Total Protein 7.3, Albumin 3.9, Globulin 3.4, Albumin/Globulin Ratio 1.1 12/09/22 06:13: POC Glucose 260 H Radiography Diagnostic Testing: Radiology Impression Abdomen/Pelvis CT 12/08/22 16:59 IMPRESSION: No acute abnormality. Small hiatal hernia. Electronically Signed: Cristopher Thomas MD at 19:29 EDT , Physical Exam Narrative General: Alert, oriented, no apparent distress HEENT: Atraumatic, normocephalic Eyes: Anicteric, normal conjunctiva, extraocular movements grossly intact Neck: Supple Respiratory: Clear to auscultation bilaterally, normal respiratory effort Cardiovascular: Regular rate and rhythm GI: Soft, nontender, nondistended Extremities: No edema Musculoskeletal: Moving all extremities Neuro: No overt focal neurological deficits Skin: No rashes appreciated Psych: Cooperative Assessment & Plan Assessment/Plan (1) Nausea & vomiting: PLAN: Plan Here 12/08 with intractable nausea, vomiting, diarrhea for 3 days with worsened abdominal discomfort and vomiting on day of presentation. #Intractable nausea and vomiting with diarrhea -Possibly secondary to gastroenteritis -White blood cell count within normal limits, initial lactic acid 2.5 and patient received IV fluids, repeat lactic improved to 1.8 -CT abdomen pelvis with no acute intra-abdominal findings -Has previous history of cholecystectomy -Pro-Joel negative, lipase 76, T. bili 1.3 and normalized in the a.m. with otherwise normal liver panel, troponin 28 -Admitted due to not being able to tolerate p.o., given IVF and started on clears -Pain control, antiemetics as needed -Stool panel ordered but uncollected -12/09: Patient initially doing better and tolerating diet however 2 hours after lunch did develop some abdominal pain and nausea and had bowel movement, stool studies sent, discharge canceled, continue supportive care #Type 2 diabetes mellitus -Glucose checks and sliding scale insulin #Hypertension -Received IV hydralazine -Continue to monitor to assess need for daily medication #Obesity -BMI 38.7 kg/m? -Complicates treatment, prognosis, outcomes -Recommend weight loss and lifestyle changes #hx JUANA -Given intractable nausea and vomiting his nightly CPAP was held temporarily with supplemental oxygen as needed #DVT ppx: Low risk, ambulatory Mariela Narvaez MD Time spent in the patient's overall evaluation,decision-making process, review of diagnostic data, adjustment of management, discussion with other providers, nursing nursing and ancillary staff involved in patient's care documentation, 36 minutes Charges/Coding Visit Charges Inpatient E&M: 43951 Subs Hosp L3
[2022-12-09 08:15] VITALS: BP 92/78; PULSE 79; RESP 18; TEMP 36.7; O2SAT 99
[2022-12-09] MEDS: Ensure Clear 120 ML Liquid PO ×2 (08:21→12:43)
[2022-12-09] MEDS: 0.9% Normal Saline 1,000 ML 100 ML IV (10:16)
[2022-12-09 12:09] LABS: Bedside Glucose 287 mg/dL (74-106)
--- NOTE | 2022-12-09 14:32 | DCINST_ITS ---
Discharge Instructions Diet Discharge Diet: Light diet - advance as tolerated Activity Discharge Activity: Return to Normal Activity Follow Up Care Test Results: Test results from this visit will be discussed in further detail at your follow- up appointment, if applicable. Discharge Plan Admission Admit Date/Time: 12/08/22 22:05 Primary Reason for Your Visit: Nausea, vomiting Attending Provider: Mariela Narvaez Primary Care Provider: Evans Napier Consulting Providers: Kate Carrion Instructions Patient Instructions: Abdominal Pain, Controlling High Blood Pressure, ED Vomiting (Adult) Additional Instructions / Restrictions: DISCHARGE INSTRUCTIONS PLEASE READ *Please take this with you to your next doctors appointment* -You had Zofran sent to the [facility] to take as needed for nausea -Would recommend following with your primary care physician as you did have elevated blood pressure and blood sugar, this may improve once you are no longer ill but recommend following closely in the event a need to be started on blood pressure medication or have other lifestyle changes recommended -Additionally you did have elevated blood sugar and will be important to get this controlled, would recommend you resume metformin and have this titra laureen/further adjusted on and outpatient basis by your primary care physician. New prescription was sent in to the [facility] pharmacy in [place]. If you begin taking this and have any further diarrhea or abdominal upset please discontinue this medication call your primary care physician for further instructions -Please call your primary care provider's office upon discharge to schedule a hospital follow up within 1 week. -For any concerning signs or symptoms please call 911 or proceed to the nearest emergency department Discharge Orders/Prescriptions Prescriptions: New metformin 500 mg tablet 500 mg PO BID 30 Days Qty: 60 0RF Continued ondansetron 4 MG tablet 4 mg PO Q8H PRN PRN (Reason: Nausea) 5 Days Qty: 10 0RF Discontinued metformin 500 MG tablet 500 mg PO BIDCM Patient Comments: Diabetes pantoprazole 40 MG tablet 40 mg PO DAILY promethazine 25 MG tablet 25 mg PO Q6H PRN PRN (Reason: Nausea) Qty: 10 0RF dicyclomine 10 MG capsule 20 mg PO TIDAC Qty: 20 0RF magnesium citrate 300 ML solution 300 ml PO X1 Qty: 300 0RF Rx Instructions: azithromycin [Zithromax] 500 MG tablet 500 mg PO DAILY Qty: 3 0RF Referrals / Follow Up: Evans Napier, DO [Primary Care Provider] - Within 1 Week Disposition Disposition (needs filled in before D/C Order can be placed): Home, Self Care
--- NOTE | 2022-12-09 14:41 | DS.PCM_ITS ---
Providers Date of Admission: 12/08/22 Date of Discharge: 12/09/22 Primary Care Physician: Dr. Evans Napier, Reason For Visit: ACUTE Gastroenteritis Diagnosis Discharge Diagnosis (1) Nausea & vomiting: Status: Acute Code(s): R11.2 - Nausea with vomiting, unspecified Qualifiers: Vomiting type: unspecified Qualified Code(s): R11.2 - Nausea with vomiting, unspecified (2) Gastroenteritis: Status: Acute Code(s): K52.9 - Noninfective gastroenteritis and colitis, unspecified Plan #Intractable nausea and vomiting with diarrhea likely secondary to self limited gastroenteritis #Type 2 diabetes mellitus #Hypertension #Obesity #hx JUANA Medications at Discharge Home Medications metformin 500 mg tablet 500 mg PO BID 30 days #60 tabs 12/09/22 ondansetron 4 mg disintegrating tablet 4 mg PO Q8H PRN PRN Nausea 5 days #10 tabs 12/09/22 Hospital Course Summary of Care Provided Minutes Spent on Discharge: 31 Hospital Course: Here 12/08 with intractable nausea, vomiting, diarrhea for 3 days with worsened abdominal discomfort and vomiting on day of presentation. Patient was admitted and started IV fluids and given clear liquids. Patient had an episode of vomiting early in the morning and then took a nap and then felt much better afterwards and tolerated transitional diet felt much better overall. Had not had another bowel movement after admission so stool studies unable to be sent. Given clinical picture, presentation, resolution suspect most likely culprit gastroenteritis. Patient improved with supportive care. On day of discharge he is feeling much better.due to short duration of hospitalization and rapid improv ement patient did not have titration of any new glucose or blood pressure medications but is strongly recommended to follow close with his PCP for further monitoring/evaluation/management. Discharge instructions as followed: -You had Zofran sent to the [facility] to take as needed for nausea -Would recommend following with your primary care physician as you did have elevated blood pressure and blood sugar, this may improve once you are no longer ill but recommend following closely in the event a need to be started on blood pressure medication or have other lifestyle changes recommended -Additionally you did have elevated blood sugar and will be important to get this controlled, would recommend you resume metformin and have this titrated/further adjusted on and outpatient basis by your primary care physician. New prescription was sent in to the [facility] in [place]. I f you begin taking this and have any further diarrhea or abdominal upset please discontinue this medication call your primary care physician for further instructions -Please call your primary care provider's office upon discharge to schedule a hospital follow up within 1 week. -For any concerning signs or symptoms please call 911 or proceed to the nearest emergency department Physical Exam Narrative General: Alert, oriented, no apparent distress HEENT: Atraumatic, normocephalic Eyes: Anicteric, normal conjunctiva, extraocular movements grossly intact Neck: Supple Respiratory: Clear to auscultation bilaterally, normal respiratory effort Cardiovascular: Regular rate and rhythm GI: Soft, nontender, nondistended Extremities: No edema Musculoskeletal: Moving all extremities Neuro: No overt focal neurological deficits Skin: No rashes appreciated Psych: Cooperative Weight / BMI Weight Weight: 125.827 kg Body Mass Index (BMI) 38.7 ABG / Lab / Microbiology Data 12/09/22 05:26 12/09/22 05:26 Laboratory: Laboratory Results - last 24 hr 12/08/22 17:05: WBC 6.6, RBC 5.11, Hgb 16.0, Hct 45.9, MCV 89.8, MCH 31.3, MCHC 34.9, RDW Std Deviation 37.2, RDW Coeff of Billy 11.3 L, Plt Count 175, MPV 10.8, Immature Gran % (Auto) 0.500, Neut % (Auto) 68.1, Lymph % (Auto) 21.1, [place] % (Auto) 8.9, Eos % (Auto) 0.6, Baso % (Auto) 0.8, Absolute Neuts (auto) 4.5, Absolute Lymphs (auto) 1.38, Nucleated RBC % 0, Sodium 136, Potassium 4.4, Chloride 102, Carbon Dioxide 25.0, Anion Gap 9, BUN 20 H, Creatinine 1.20, Estim Creat Clear Calc 68.85, Est GFR (MDRD) Af Amer 79, Est GFR (MDRD) Non-Af 65, BUN/Creatinine Ratio 16.7, Glucose 260 H, Lactic Acid 2.5 H*, Calcium 10.0, Total Bilirubin 1.30 H, AST 20, ALT 29, Alkaline Phosphatase 54, Total Protein 7.9, Albumin 4.3, Globulin 3.6, Albumin/Globulin Ratio 1.2, Lipase 76 H 12/08/22 17:26: POC Glucose 275 H 12/08/22 18:35: Urine Color Yellow, Urine Clarity Sl. Cloudy, Urine pH 7.0, Ur Specific [place] 1.010, Urine Protein 30 H, Urine Glucose (UA) 1000 H, Urine Ketones 50 H, Urine Occult Blood 10 H, Urine Nitrite Negative, Urine Bilirubin Negative, Urine Urobilinogen Normal, Ur Leukocyte Esterase Negative, Urine RBC 0 SEEN, Urine WBC 0 SEEN, Ur Squamous Epith Cells 0 SEEN, Urine Bacteria 0 SEEN, Urine Mucus 0 SEEN 12/08/22 21:20: Lactic Acid 1.8 12/08/22 22:25: Procalcitonin < 0.04 12/08/22 23:30: Troponin I High Sens 28 12/08/22 23:42: POC Glucose 271 H 12/09/22 05:26: WBC 7.8, RBC 4.92, Hgb 15.4, Hct 44.4, MCV 90.2, MCH 31.3, MCHC 34.7, RDW Std Deviation 38.1, RDW Coeff of Billy 11.6, Plt Count 181, MPV 11.1, Immature Gran % (Auto) 0.500, Neut % (Auto) 78.8 H, Lymph % (Auto) 12.7 L, [place] % (Auto) 7.7, Eos % (Auto) 0.0, Baso % (Auto) 0.3, Absolute Neuts (auto) 6.1, Absolute Lymphs (auto) 0.99, Nucleated RBC % 0, Sodium 137, Potassium 3.8, Chloride 105, Carbon Dioxide 24.0, Anion Gap 8, BUN 18, Creatinine 1.02, Estim Creat Clear Calc 81.00, Est GFR (MDRD) Af Amer 95, Est GFR (MDRD) Non-Af 79, BUN/Creatinine Ratio 17.6, Glucose 248 H, Calcium 9.1, Total Bilirubin 1.00, AST 14 L, ALT 24, Alkaline Phosphatase 48, Total Protein 7.3, Albumin 3.9, Globulin 3.4, Albumin/Globulin Ratio 1.1 12/09/22 06:13: POC Glucose 260 H 12/09/22 11:51: POC Glucose 287 H Radiography Diagnostic Testing: Radiology Impression Abdomen/Pelvis CT 12/08/22 16:59 IMPRESSION: No acute abnormality. Small hiatal hernia. Electronically Signed: Cristopher Thomas MD at 19:29 EDT , D/C Instructions Discharge Diet: Light diet - advance as tolerated Meaningful Use Info Meaningful Use Diagnoses (Choose all that apply): None applicable Discharge Plan Admission Admit Date/Time: 12/08/22 22:05 Primary Reason for Your Visit: Nausea, vomiting Attending Provider: Mariela Narvaez Primary Care Provider: Evans Napier Consulting Providers: Kate Carrion Instructions Patient Instructions: Abdominal Pain, Controlling High Blood Pressure, ED Vomiting (Adult) Additional Instructions / Restrictions: DISCHARGE INSTRUCTIONS PLEASE READ *Please take this with you to your next doctors appointment* -You had Zofran sent to the [facility] pharmacy to take as needed for nausea -Would recommend following with your primary care physician as you did have elevated blood pressure and blood sugar, this may improve once you are no longer ill but recommend following closely in the event a need to be started on blood pressure medication or have other lifestyle changes recommended -Additionally you did have elevated blood sugar and will be important to get this controlled, would recommend you resume metformin and have this titrated/further adjusted on and outpatient basis by your primary care phys icinancy. New prescription was sent in to the [facility] in [place]. If you begin taking this and have any further diarrhea or abdominal upset please discontinue this medication call your primary care physician for further instructions -Please call your primary care provider's office upon discharge to schedule a hospital follow up within 1 week. -For any concerning signs or symptoms please call 911 or proceed to the nearest emergency department Discharge Orders/Prescriptions Prescriptions: New metformin 500 mg tablet 500 mg PO BID 30 Days Qty: 60 0RF Continued ondansetron 4 MG tablet 4 mg PO Q8H PRN PRN (Reason: Nausea) 5 Days Qty: 10 0RF Discontinued metformin 500 MG tablet 500 mg PO BIDCM Patient Comments: Diabetes pantoprazole 40 MG tablet 40 mg PO DAILY promethazine 25 MG tablet 25 mg PO Q6H PRN PRN (Reason: Nausea) Qty: 10 0RF dicyclomine 10 MG capsule 20 mg PO TIDAC Qty: 20 0RF magnesium citrate 300 ML solution 300 ml PO X1 Qty: 300 0RF Rx Instructions: azithromycin [Zithromax] 500 MG tablet 500 mg PO DAILY Qty: 3 0RF Referrals / Follow Up: Evans Napier DO [Primary Care Provider] - Within 1 Week Disposition Disposition (needs filled in before D/C Order can be placed): Home, Self Care Charges/Coding Visit Charges Inpatient E&M: 76377 Disch Hosp >30min
--- NOTE | 2022-12-09 15:07 | PCM.HOSP.N ---
Hospitalist Note Initial plan for patient to leave as he was feeling better however 2 hours after eating he developed some abdominal pain and nausea, will cancel DC for today and continue supportive care, did have bowel movement now so stool studies sent
[2022-12-09] MEDS: Ondansetron 4 MG/2 ML Vial IV (16:00)
[2022-12-09 16:03] VITALS: BP 154/97; PULSE 87; RESP 16; TEMP 36.8; O2SAT 97
[2022-12-09 17:34] LABS: Bedside Glucose 313 mg/dL (74-106)
[2022-12-09 20:13] VITALS: BP 159/87; PULSE 78; RESP 16; TEMP 37.3; O2SAT 97
[2022-12-09] MEDS: Morphine 2 MG/ML Syringe IV (20:21)
[2022-12-09 23:34] LABS: Bedside Glucose 242 mg/dL (74-106)
[2022-12-10] VITALS (12 sets, daily range): BP systolic 111–181; BP diastolic 64–94; PULSE 84–100; RESP 16–20; TEMP 36.9–37.2; O2SAT 93–98
[2022-12-10] MEDS: Acetaminophen 325 MG Tablet 650 MG PO ×2 (04:06→17:30)
[2022-12-10] MEDS: oxyCODONE 5 MG Tablet PO ×4 (04:06→21:46)
[2022-12-10] MEDS: hydrALAZINE 20 MG/ML Vial 10 MG IV ×3 (04:06→15:45)
[2022-12-10] MEDS: Insulin Lispro 100 UNIT/ML INSULN.PEN SC ×4 (05:50→21:47)
[2022-12-10 06:15] LABS: Bedside Glucose 247 mg/dL (74-106)
[2022-12-10 07:08] LABS: Anion Gap 5 (5-15); BUN 19 mg/dL (7-18); BUN/Creat Ratio 19.4 RATIO (10-20); Calcium,Total 8.8 mg/dL (8.5-10.1); Chloride 106 mmol/L (98-107); Creatinine, Serum 0.98 mg/dL (0.70-1.30); EST Glomerular Filtration Rate 83 mL/min (>60); Est Glom Filt Rate - Afr Amer 100 mL/min (>60); Estimated Creatinine Clearance 84.31 ml/min; Glucose 253 mg/dL (74-106); Potassium 3.5 mmol/L (3.5-5.1); Sodium Level 135 mmol/L (136-145)
[2022-12-10] MEDS: amLODIPine 2.5 MG Tablet PO (08:20)
[2022-12-10] MEDS: 0.9% Saline Lock 10 ML Syringe IV ×4 (08:20→21:47)
[2022-12-10 09:11] LABS: Hemoglobin A1c 10.9 % (3.8-5.6)
--- NOTE | 2022-12-10 09:53 | PCM.PN.HOSP ---
Reason for Visit Reason for Visit: Diagnoses Noninfective gastroenteritis and colitis, unspecified (12/08/22) Nausea with vomiting, unspecified (12/08/22) Subjective Subjective Patient still having abdominal pain and nausea, only had 1 bowel movement overnight Objective Data Objective Data Vital Signs: Vital Signs Temp Pulse Resp BP Pulse Ox O2 Del Method O2 Flow Rate 98.9 F 100 20 H 170/80 H 98 Room Air 1 12/10/22 08:08 12/10/22 08:12 12/10/22 08:08 12/10/22 08:08 12/10/22 08:08 12/10/22 08:12 12/08/22 22:22 Oxygen Flow Rate (L/min) 1 Oxygen Delivery Method Room Air Weight: 125.827 kg Body Mass Index (BMI) 38.7 Intake & Output: Intake and Output for Last 24 Hours 12/08/22 12/09/22 12/10/22 23:59 23:59 23:59 Intake Total 1999 3230 / 3230 800 / 800 Output Total 750 / 750 Balance 1999 2480 / 2480 800 / 800 Lab / Micro Data 12/09/22 05:26 12/10/22 05:50 Labs: Laboratory Results - last 24 hr 12/09/22 11:51: POC Glucose 287 H 12/09/22 17:10: POC Glucose 313 H 12/09/22 23:14: POC Glucose 242 H 12/10/22 05:46: POC Glucose 247 H 12/10/22 05:50: Sodium 135 L, Potassium 3.5, Chloride 106, Carbon Dioxide 24.0, Anion Gap 5, BUN 19 H, Creatinine 0.98, Estim Creat Clear Calc 84.31, Est GFR (MDRD) Af Amer 100, Est GFR (MDRD) Non-Af 83, BUN/Creatinine Ratio 19.4, Glucose 253 H, Calcium 8.8 12/10/22 05:55: Hemoglobin A1c 10.9 H Micro: Microbiology 12/09/22 14:40 Stool Enteric Bacteriology - Final 12/09/22 14:40 Stool C. difficile DNA Amplification - Final Physical Exam Narrative General: Alert, oriented, appears to not be feeling this well HEENT: Atraumatic, normocephalic Eyes: Anicteric, normal conjunctiva, extraocular movements grossly intact Neck: Supple Respiratory: Clear to auscultation bilaterally, normal respiratory effort Cardiovascular: Regular rate and rhythm GI: Soft, nondistended, no rebound, guarding, rigidity Extremities: No edema Musculoskeletal: Moving all extremities Neuro: No overt focal neurological deficits Skin: No rashes appreciated Psych: Cooperative Assessment & Plan Assessment/Plan (1) Nausea & vomiting: QUALIFIERS: Vomiting type: unspecified Qualified Code(s): R11.2 - Nausea with vomiting, unspecified PLAN: Plan Here 12/08 with intractable nausea, vomiting, diarrhea for 3 days with worsened abdominal discomfort and vomiting on day of presentation. #Intractable nausea and vomiting with diarrhea -Possibly secondary to gastroenteritis -White blood cell count within normal limits, initial lactic acid 2.5 and patient received IV fluids, repeat lactic improved to 1.8 -CT abdomen pelvis with no acute intra-abdominal findings -Has previous history of cholecystectomy -Pro-Joel negative, lipase 76, T. bili 1.3 and normalized in the a.m. with otherwise normal liver panel, troponin 28 -Admitted due to not being able to tolerate p.o., given IVF and started on clears -Pain control, antiemetics as needed -Stool panel ordered but uncollected -12/09: Patient initially doing better and tolerating diet however 2 hours after lunch did develop some abdominal pain and nausea and had bowel movement, stool studies sent, discharge canceled, continue supportive care -12/10: Has waxed and waned, C. difficile and GI panel negative, ova and parasites pending, de-escalate diet, will repeat CT with IV and p.o. contrast #Type 2 diabetes mellitus -Glucose checks and sliding scale insulin -12/10: Hemoglobin A1c greater than 10, started 5 units of long-acting insulin #Hypertension -Received IV hydralazine -Continue to monitor to assess need for daily medication -12/10: Added amlodipine #Obesity -BMI 38.7 kg/m? -Complicates treatment, prognosis, outcomes -Recommend weight loss and lifestyle changes #hx JUANA -Given intractable nausea and vomiting his nightly CPAP was held temporarily with supplemental oxygen as needed #DVT ppx: We will add Lovenox subcu Mariela Narvaez MD Time spent in the patient's overall evaluation,decision-making process, review of diagnostic data, adjustment of management, discussion with other providers, nursing nursing and ancillary staff involved in patient's care documentation, 36 minutes Charges/Coding Visit Charges Inpatient E&M: 08247 Subs Hosp L3
--- NOTE | 2022-12-10 09:58 | CT_ITS ---
STUDY: CT ABDOMEN AND PELVIS WITH CONTRAST REASON FOR EXAM: Male, 62 years old. w/ IV and PO -- n/v/abd pain refractory to conservative management RADIATION DOSAGE (If Supplied By Facility): CTDIvol = ( 23.67 ) mGy, DLP = ( 1940.08 ) mGycm TECHNIQUE: Transaxial images were obtained from the dome of the diaphragm to the symphysis pubis with oral contrast. Oral and amp; IV Gastrografin and amp; 100mL Isovue-300 was administered. Sagittal and coronal images were reconstructed. Individualized dose optimization techniques were used for this CT. COMPARISON: Comparison is made with prior study dated December 08, 2022. FINDINGS: The visualized lung bases are unremarkable. The visualized portions of the heart are within normal limits. There is decreased attenuation of the liver consistent with steatosis. The patient is status post cholecystectomy. Normal spleen. Normal pancreas. Normal bilateral adrenal glands. Normal right kidney. Punctate calculus in the lower pole calyx of the left kidney. Nonspecific mild degree of bilateral perinephric stranding. Normal visualized stomach. Normal small intestine. Normal colon. The appendix is visualized and appears normal. Normal abdominal aorta. Normal inferior vena cava. Normal retroperitoneum. Distended urinary bladder. Normal abdominal wall. Normal osseous structures. CT/Abdomen/Pelvis WITH Contrast IMPRESSION: Distended urinary bladder. Status post cholecystectomy. Fatty infiltration of the liver. Electronically Signed: Feng Neri MD at 14:38 EDT ,
[2022-12-10] MEDS: Insulin Glargine-YFGN 100 UNIT/ML Pen SC (10:41)
[2022-12-10] MEDS: Ondansetron 4 MG/2 ML Vial IV (11:05)
[2022-12-10 16:16] LABS: Bedside Glucose 222 mg/dL (74-106)
[2022-12-10] MEDS: MELATONIN 3 MG TABLET PO (21:46)
[2022-12-10 22:29] LABS: Bedside Glucose 252 mg/dL (74-106)
[2022-12-11] VITALS (7 sets, daily range): BP systolic 157–184; BP diastolic 92–104; PULSE 81–97; RESP 16–18; TEMP 36.6–37.2; O2SAT 94–97; BMI 38.7
[2022-12-11] MEDS: oxyCODONE 5 MG Tablet PO (03:09)
[2022-12-11] MEDS: Enoxaparin 40 MG/0.4 ML Syringe SC (06:14)
[2022-12-11] MEDS: Morphine 2 MG/ML Syringe IV ×3 (06:14→14:37)
[2022-12-11] MEDS: 0.9% Saline Lock 10 ML Syringe IV ×4 (06:14→14:38)
[2022-12-11] MEDS: Insulin Lispro 100 UNIT/ML INSULN.PEN SC ×4 (06:18→20:56)
[2022-12-11 07:00] LABS: Absolute Lymphocyte Count 1.55 X10^3/uL (0.83-4.51); Absolute Neutrophil Count 4.2 X10^3/uL (2.0-7.7); Basophil# 0.04 X10^3/uL; Basophil% 0.6 % (0-1); Eosinophil# 0.02 X10^3/uL; Eosinophils% 0.3 % (0-5); Hematocrit 44.3 % (40-54); Lymphocyte # 1.55 X10^3/ul (0.83-4.51); Lymphocyte % 23.9 % (19-41); Mean Corp Hgb Conc 36.1 g/dL (32-36); Mean Corpuscular Hgb 31.6 pg (27.0-32.0); Mean Corpuscular Volume 87.4 fL (80-94); Mean Platelet Vol. 11.3 fl (6.2-12.0); Monocyte# 0.66 X10^3/uL; Monocyte% 10.2 % (0-10); NRBC Flagged by Analyzer 0 % (0-5); Neutrophil # 4.18 X10^3/uL (2.7-7.7); Neutrophil % 64.4 % (47-70); Platelet Count 154 K/mm3 (150-450); RBC Distribution Width CV 11.4 % (11.6-14.6); RBC Distribution Width SD 36.4 fl (35.1-43.9); Red Blood Count 5.07 M/mm3 (4.6-6.2); White Blood Count 6.5 K/mm3 (4.4-11.0)
[2022-12-11 07:26] LABS: ALB/GLOB Ratio 0.9 RATIO (0.9-2.4); AST(SGOT) 18 U/L (15-37); Alanine Aminotransfer ALT/SGPT 23 U/L (16-61); Albumin, Serum 3.4 g/dL (3.2-5.0); Alkaline Phosphatase 45 U/L (45-117); Anion Gap 9 (5-15); BUN 16 mg/dL (7-18); BUN/Creat Ratio 17.3 RATIO (10-20); Chloride 101 mmol/L (98-107); Creatinine, Serum 0.93 mg/dL (0.70-1.30); EST Glomerular Filtration Rate 88 mL/min (>60); Est Glom Filt Rate - Afr Amer 106 mL/min (>60); Estimated Creatinine Clearance 88.84 ml/min; Globulin 3.6 g/dL (2.2-4.2); Glucose 231 mg/dL (74-106); Potassium 3.5 mmol/L (3.5-5.1); Sodium Level 132 mmol/L (136-145)
--- NOTE | 2022-12-11 07:57 | PN.HOSP_ITS ---
Reason for Visit Reason for Visit: Diagnoses Noninfective gastroenteritis and colitis, unspecified (12/10/22) Nausea with vomiting, unspecified (12/10/22) Subjective Subjective Patient continues to have abdominal pain, still some nausea, no bowel movement since day before yesterday but is passing gas Objective Data Objective Data Vital Signs: Vital Signs Temp Pulse Resp BP Pulse Ox O2 Del Method O2 Flow Rate 98.4 F 81 16 157/97 H 94 Room Air 1 12/11/22 02:40 12/11/22 02:40 12/11/22 02:40 12/11/22 02:40 12/11/22 06:52 12/11/22 06:52 12/08/22 22:22 Oxygen Flow Rate (L/min) 1 Oxygen Delivery Method Room Air Weight: 125.673 kg Body Mass Index (BMI) 38.7 Intake & Output: Intake and Output for Last 24 Hours 12/09/22 12/10/22 12/11/22 23:59 23:59 23:59 Intake Total 3230 / 3230 1140 / 1140 Output Total 750 / 750 500 / 500 Balance 2480 / 2480 640 / 640 Lab / Micro Data 12/11/22 06:17 12/11/22 06:17 Labs: Laboratory Results - last 24 hr 12/10/22 05:55: Hemoglobin A1c 10.9 H 12/10/22 15:53: POC Glucose 222 H 12/10/22 21:45: POC Glucose 252 H 12/11/22 06:17: WBC 6.5, RBC 5.07, Hgb 16.0, Hct 44.3, MCV 87.4, MCH 31.6, MCHC 36.1 H, RDW Std Deviation 36.4, RDW Coeff of Billy 11.4 L, Plt Count 154, MPV 11.3, Immature Gran % (Auto) 0.600, Neut % (Auto) 64.4, Lymph % (Auto) 23.9, [place] % (Auto) 10.2 H, Eos % (Auto) 0.3, Baso % (Auto) 0.6, Absolute Neuts (auto) 4.2, Absolute Lymphs (auto) 1.55, Nucleated RBC % 0, Sodium 132 L, Potassium 3.5, Chloride 101, Carbon Dioxide 22.0, Anion Gap 9, BUN 16, Creatinine 0.93, Estim Creat Clear Calc 88.84, Est GFR (MDRD) Af Amer 106, Est GFR (MDRD) Non-Af 88, BUN/Creatinine Ratio 17.3, Glucose 231 H, Calcium 9.0, Total Bilirubin 1.20 H, AST 18, ALT 23, Alkaline Phosphatase 45, Total Protein 7.0, Albumin 3.4, Globulin 3.6, Albumin/Globulin Ratio 0.9 Micro: Microbiology 12/09/22 14:40 Stool Enteric Bacteriology - Final 12/09/22 14:40 Stool C. difficile DNA Amplification - Final Radiography Diagnostic Testing: Radiology Impression Abdomen/Pelvis CT 12/10/22 09:58 IMPRESSION: Distended urinary bladder. Status post cholecystectomy. Fatty infiltration of the liver. Electronically Signed: Feng Neri MD at 14:38 EDT , Physical Exam Narrative General: Alert, oriented, appears to not be feeling well HEENT: Atraumatic, normocephalic Eyes: Anicteric, normal conjunctiva, extraocular movements grossly intact Neck: Supple Respiratory: Clear to auscultation bilaterally, normal respiratory effort Cardiovascular: Regular rate and rhythm GI: Soft, nondistended, no rebound, guarding, rigidity, has some tenderness more so left lower area than right but complains of periumbilical pain Extremities: No edema Musculoskeletal: Moving all extremities Neuro: No overt focal neurological deficits Skin: No rashes appreciated Psych: Cooperative Assessment & Plan Assessment/Plan (1) Nausea & vomiting: QUALIFIERS: Vomiting type: unspecified Qualified Code(s): R11.2 - Nausea with vomiting, unspecified PLAN: Plan Here 12/08 with intractable nausea, vomiting, diarrhea for 3 days with worsened abdominal discomfort and vomiting on day of presentation. #Intractable nausea and vomiting with diarrhea -Possibly secondary to gastroenteritis -White blood cell count within normal limits, initial lactic acid 2.5 and patient received IV fluids, repeat lactic improved to 1.8 -CT abdomen pelvis with no acute intra-abdominal findings -Has previous history of cholecystectomy -Pro-Joel negative, lipase 76, T. bili 1.3 and normalized in the a.m. with otherwise normal liver panel, troponin 28 -Admitted due to not being able to tolerate p.o., given IVF and started on clears -Pain control, antiemetics as needed -Stool panel ordered but uncollected -12/09: Patient initially doing better and tolerating diet however 2 hours after lunch did develop some abdominal pain and nausea and had bowel movement, stool studies sent, discharge canceled, continue supportive care -12/10: Has waxed and waned, C. difficile and GI panel negative, ova and parasites pending, de-escalate diet, will repeat CT with IV and p.o. contrast -12/11: CT of abdomen demonstrated mild perinephric stranding and bladder distention but no other acute abnormalities. Patient still having abdominal pain and nausea, resume fluids. Postvoid yesterday with patient urinating 500 and having 250 left and bladder but he insisted he had been emptying well. Will check UA and repeat postvoid, suspect that urinary retention whether it be secondary to BPH or neurogenic from his uncontrolled diabetes. If this is is the case he will get relief from draining bladder. We will need to maintain regular bowel movements #Type 2 diabetes mellitus -Glucose checks and sliding scale insulin -12/10: Hemoglobin A1c greater than 10, started 5 units of long-acting insulin -12/11: Increase long-acting insulin to 10, will likely need to be discharged home on insulin #Hypertension -Received IV hydralazine -Continue to monitor to assess need for daily medication -12/10: Added amlodipine -12/11: Widely variable blood pressure, if this is urinary retention suspect blood pressure will improve with treatment of underlying etiology #Obesity -BMI 38.7 kg/m? -Complicates treatment, prognosis, outcomes -Recommend weight loss and lifestyle changes #hx JUANA -Given intractable nausea and vomiting his nightly CPAP was held temporarily with supplemental oxygen as needed #DVT ppx: We will add Lovenox subcu Mariela Narvaez MD Time spent in the patient's overall evaluation,decision-making process, review of diagnostic data, adjustment of management, discussion with other providers, nursing nursing and ancillary staff involved in patient's care documentation, 36 minutes Charges/Coding Visit Charges Inpatient E&M: 84277 [facility] Hosp L3
[2022-12-11] MEDS: 0.9% Normal Saline 1,000 ML 100 ML IV ×2 (09:42→17:52)
[2022-12-11] MEDS: Polyethylene Glycol 3350 17 GM PACKET PO ×2 (09:43→20:55)
[2022-12-11] MEDS: amLODIPine 2.5 MG Tablet PO (09:43)
[2022-12-11] MEDS: Insulin Glargine-YFGN 100 UNIT/ML Pen 10 UNIT SC (09:45)
[2022-12-11 10:20] LABS: Bedside Glucose 230 mg/dL (74-106)
[2022-12-11] MEDS: hydrALAZINE 20 MG/ML Vial 10 MG IV (11:10)
[2022-12-11 11:38] LABS: Bacteria 0 SEEN /hpf (None Seen); Mucous, Urine 0 SEEN /hpf (<or=2+); Squamous Epithelial Cells - UA 0 SEEN /hpf (0-5)
[2022-12-11 11:40] LABS: Color, Urine Yellow (Yellow); Glucose, Dipstick 1000 mg/dl (Normal); Ketone-Dipstick 50 mg/dl (Negative); Leukocyte Esterase-Dipstick Negative /ul (Negative); Nitrite-Dipstick Negative (Negative); Occult Blood-Urine 25 /ul (Negative); Protein-Dipstick 100 mg/dl (Negative); Specific Gravity, Urine 1.015 (1.002-1.030); Urine Bilirubin Dipstick Negative (Negative); Urine Clarity Clear (Clear); Urine Urobilinogen Normal (Normal); Urine pH 6.5 (5.0 - 8.0)
[2022-12-11 11:59] LABS: Red Blood Cells-Urine 0-5 SEEN /hpf (0-5); White Blood Cells 0-5 SEEN /hpf (0-5)
[2022-12-11 12:00] LABS: Urea Nitrogen, Urine 470 mg/dL (NO RANGE EST.); Urine Chloride 150 mmol/L (Not Establ.); Urine Sodium 135 mmol/L (Not Establ.)
[2022-12-11 12:03] LABS: Osmolality, Urine 593 mOsm/KG
[2022-12-11] MEDS: amLODIPine 5 MG Tablet PO (14:31)
[2022-12-11] MEDS: ChlorproMAZINE 25 MG Tablet PO (14:35)
[2022-12-11 16:13] LABS: Erythrocyte Sedimentation Rate 12 mm/hr (0-20)
[2022-12-11 16:20] LABS: CRP < 2.90 mg/L (0.0-3.0)
[2022-12-11 16:55] LABS: Bedside Glucose 202 mg/dL (74-106)
[2022-12-11 21:04] LABS: Bedside Glucose 234 mg/dL (74-106)
[2022-12-11 22:32] LABS: Bedside Glucose 209 mg/dL (74-106)
[2022-12-12 01:28] VITALS: BP 150/82; PULSE 91; RESP 16; TEMP 36.7; O2SAT 95
[2022-12-12] MEDS: 0.9% Normal Saline 1,000 ML 100 ML IV ×3 (04:40→23:54)
[2022-12-12 04:42] VITALS: BP 143/85; PULSE 85; RESP 18; TEMP 36.9; O2SAT 99
[2022-12-12] MEDS: oxyCODONE 5 MG Tablet PO ×2 (04:49→13:51)
[2022-12-12 06:00] VITALS: BMI 38.1
[2022-12-12 06:21] LABS: Absolute Neutrophil Count 4.4 X10^3/uL (2.0-7.7); Basophil# 0.04 X10^3/uL; Basophil% 0.6 % (0-1); Eosinophil# 0.01 X10^3/uL; Eosinophils% 0.1 % (0-5); Hemoglobin 16.1 g/dL (13.0-16.5); Lymphocyte % 22.5 % (19-41); Mean Corp Hgb Conc 36.6 g/dL (32-36); Mean Corpuscular Hgb 31.5 pg (27.0-32.0); Mean Corpuscular Volume 86.1 fL (80-94); Mean Platelet Vol. 10.4 fl (6.2-12.0); Monocyte# 0.68 X10^3/uL; Monocyte% 10.2 % (0-10); NRBC Flagged by Analyzer 0 % (0-5); Platelet Count 162 K/mm3 (150-450); RBC Distribution Width CV 11.2 % (11.6-14.6); RBC Distribution Width SD 35.6 fl (35.1-43.9); Red Blood Count 5.11 M/mm3 (4.6-6.2); White Blood Count 6.7 K/mm3 (4.4-11.0)
[2022-12-12] MEDS: Insulin Lispro 100 UNIT/ML INSULN.PEN SC ×4 (06:36→21:42)
[2022-12-12] MEDS: Enoxaparin 40 MG/0.4 ML Syringe SC (06:36)
[2022-12-12 06:54] LABS: AST(SGOT) 14 U/L (15-37); Alanine Aminotransfer ALT/SGPT 19 U/L (16-61); Albumin, Serum 3.2 g/dL (3.2-5.0); Alkaline Phosphatase 43 U/L (45-117); Anion Gap 8 (5-15); BUN 14 mg/dL (7-18); BUN/Creat Ratio 18.2 RATIO (10-20); Calcium,Total 8.5 mg/dL (8.5-10.1); Chloride 103 mmol/L (98-107); Creatinine, Serum 0.77 mg/dL (0.70-1.30); EST Glomerular Filtration Rate 109 mL/min (>60); Est Glom Filt Rate - Afr Amer 132 mL/min (>60); Globulin 3.3 g/dL (2.2-4.2); Glucose 216 mg/dL (74-106); Potassium 3.3 mmol/L (3.5-5.1); Protein, Total 6.5 g/dL (6.4-8.2); Sodium Level 135 mmol/L (136-145)
[2022-12-12 06:56] LABS: Bedside Glucose 219 mg/dL (74-106)
[2022-12-12] MEDS: Potassium Chloride 10mEq/100mL 10 MEQ/100 ML IV.SOLN. 100 MEQ IV BOLUS ×2 (08:15→09:30)
[2022-12-12] MEDS: amLODIPine 10 MG Tablet PO (08:15)
[2022-12-12 08:30] VITALS: BP 155/101; PULSE 85; RESP 18; TEMP 36.6; O2SAT 98
--- NOTE | 2022-12-12 09:26 | PCM.PN.HOSP ---
Reason for Visit Reason for Visit: Diagnoses Noninfective gastroenteritis and colitis, unspecified (12/10/22) Nausea with vomiting, unspecified (12/10/22) Subjective Subjective Nausea slightly better today and did have bowel movement however still has the abdominal pain Objective Data Objective Data Vital Signs: Vital Signs Temp Pulse Resp BP Pulse Ox O2 Del Method O2 Flow Rate 98 F 85 18 155/101 H 98 Room Air 1 12/12/22 08:30 12/12/22 08:30 12/12/22 08:30 12/12/22 08:30 12/12/22 08:30 12/12/22 08:36 12/08/22 22:22 Oxygen Flow Rate (L/min) 1 Oxygen Delivery Method Room Air Weight: 125.673 kg Body Mass Index (BMI) 38.7 Intake & Output: Intake and Output for Last 24 Hours 12/10/22 12/11/22 12/12/22 23:59 23:59 23:59 Intake Total 1140 / 1140 1036.67 / 1036.67 1200 / 1200 Output Total 500 / 500 Balance 640 / 640 1036.67 / 1036.67 1200 / 1200 Lab / Micro Data 12/12/22 05:50 12/12/22 05:50 Labs: Laboratory Results - last 24 hr 12/11/22 06:17: ESR 12, C-React Prot Ext Range < 2.90, POC Glucose 234 H 12/11/22 09:59: POC Glucose 230 H 12/11/22 11:30: Urine Color Yellow, Urine Clarity Clear, Urine pH 6.5, Ur Specific [place] 1.015, Urine Protein 100 H, Urine Glucose (UA) 1000 H, Urine Ketones 50 H, Urine Occult Blood 25 H, Urine Nitrite Negative, Urine Bilirubin Negative, Urine Urobilinogen Normal, Ur Leukocyte Esterase Negative, Urine RBC 0-5 SEEN, Urine WBC 0-5 SEEN, Ur Squamous Epith Cells 0 SEEN, Urine Bacteria 0 SEEN, Urine Mucus 0 SEEN, Urine Osmolality 593, Ur Random Sodium 135, Urine Creatinine 58.00, Urine Potassium 30.0, Urine Chloride 150, Urine Urea Nitrogen 470 12/11/22 16:34: POC Glucose 202 H 12/11/22 20:49: POC Glucose 209 H 12/12/22 05:50: WBC 6.7, RBC 5.11, Hgb 16.1, Hct 44.0, MCV 86.1, MCH 31.5, MCHC 36.6 H, RDW Std Deviation 35.6, RDW Coeff of Billy 11.2 L, Plt Count 162, MPV 10.4, Immature Gran % (Auto) 0.600, Neut % (Auto) 66.0, Lymph % (Auto) 22.5, [place] % (Auto) 10.2 H, Eos % (Auto) 0.1, Baso % (Auto) 0.6, Absolute Neuts (auto) 4.4, Absolute Lymphs (auto) 1.50, Nucleated RBC % 0, Sodium 135 L, Potassium 3.3 L, Chloride 103, Carbon Dioxide 24.0, Anion Gap 8, BUN 14, Creatinine 0.77, Estim Creat Clear Calc 107.30, Est GFR (MDRD) Af Amer 132, Est GFR (MDRD) Non-Af 109, BUN/Creatinine Ratio 18.2, Glucose 216 H, Calcium 8.5, Total Bilirubin 1.20 H, AST 14 L, ALT 19, Alkaline Phosphatase 43 L, Total Protein 6.5, Albumin 3.2, Globulin 3.3, Albumin/Globulin Ratio 1.0 12/12/22 06:35: POC Glucose 219 H Micro: Microbiology 12/09/22 14:40 Stool Enteric Bacteriology - Final 12/09/22 14:40 Stool C. difficile DNA Amplification - Final Physical Exam Narrative General: Alert, oriented, appears to not be feeling well HEENT: Atraumatic, normocephalic Eyes: Anicteric, normal conjunctiva, extraocular movements grossly intact Neck: Supple Respiratory: Clear to auscultation bilaterally, normal respiratory effort Cardiovascular: Regular rate and rhythm GI: Soft, nondistended, no rebound, guarding, rigidity, has some tenderness more so left lower area more than right Extremities: No edema Musculoskeletal: Moving all extremities Neuro: No overt focal neurological deficits Skin: No rashes appreciated Psych: Cooperative Assessment & Plan Assessment/Plan (1) Nausea & vomiting: QUALIFIERS: Vomiting type: unspecified Qualified Code(s): R11.2 - Nausea with vomiting, unspecified PLAN: Plan Here 12/08 with intractable nausea, vomiting, diarrhea for 3 days with worsened abdominal discomfort and vomiting on day of presentation. #Intractable nausea and vomiting with diarrhea -Possibly secondary to gastroenteritis -White blood cell count within normal limits, initial lactic acid 2.5 and patient received IV fluids, repeat lactic improved to 1.8 -CT abdomen pelvis with no acute intra-abdominal findings -Has previous history of cholecystectomy -Pro-Joel negative, lipase 76, T. bili 1.3 and normalized in the a.m. with otherwise normal liver panel, troponin 28 -Admitted due to not being able to tolerate p.o., given IVF and started on clears -Pain control, antiemetics as needed -Stool panel ordered but uncollected -12/09: Patient initially doing better and tolerating diet however 2 hours after lunch did develop some abdominal pain and nausea and had bowel movement, stool studies sent, discharge canceled, continue supportive care -12/10: Has waxed and waned, C. difficile and GI panel negative, ova and parasites pending, de-escalate diet, will repeat CT with IV and p.o. contrast -12/11: CT of abdomen demonstrated mild perinephric stranding and bladder distention but no other acute abnormalities. Patient still having abdominal pain and nausea, resume fluids. Postvoid yesterday with patient urinating 500 and having 250 left and bladder but he insisted he had been emptying well. Will check UA and repeat postvoid, suspect that urinary retention whether it be secondary to BPH or neurogenic from his uncontrolled diabetes. If this is is the case he will get relief from draining bladder. We will need to maintain regular bowel movements -12/12: Now having bowel movements, nausea slightly better but still has the abdominal pain, inflammatory markers within normal limits, unclear etiology, gastroenterology consulted #Type 2 diabetes mellitus -Glucose checks and sliding scale insulin -12/10: Hemoglobin A1c greater than 10, started 5 units of long-acting insulin -12/11: Increase long-acting insulin to 10, will likely need to be discharged home on insulin -12/12: Continue to adjust as warranted #Hypertension -Received IV hydralazine -Continue to monitor to assess need for daily medication -12/10: Added amlodipine -12/11: Widely variable blood pressure, if this is urinary retention suspect blood pressure will improve with treatment of underlying etiology -12/12: Increased amlodipine #Obesity -BMI 38.7 kg/m? -Complicates treatment, prognosis, outcomes -Recommend weight loss and lifestyle changes #hx JUANA -Given intractable nausea and vomiting his nightly CPAP was held temporarily with supplemental oxygen as needed #DVT ppx: We will add Lovenox subcu Mariela Narvaez MD Time spent in the patient's overall evaluation,decision-making process, review of diagnostic data, adjustment of management, discussion with other providers, nursing nursing and ancillary staff involved in patient's care documentation, 36 minutes Charges/Coding Visit Charges Inpatient E&M: 52260 Subs Hosp L3
[2022-12-12] MEDS: Insulin Glargine-YFGN 100 UNIT/ML Pen 12 UNIT SC (10:27)
[2022-12-12 10:30] VITALS: BP 120/79
[2022-12-12 10:51] LABS: Bedside Glucose 228 mg/dL (74-106)
--- NOTE | 2022-12-12 11:25 | CASEMGMT ---
SUZANNA MENDES Assessment: Face to Face with pt for initial transition planning/care coordination assessment. SUZANNA MENDES introduced self and role at [facility], pt voices understanding and consents to assessment. Pt is A/O x4 and answers all questions appropriately at this time. Pt lying in bed with eyes closed throughout assessment in no distress. Care providers, pharmacy, and demographics verified/updated. Admitting Dx: acute gastroenteritis PCP:Quyen Specialists:Pt denies Preferred Pharmacy:[facility] Insurance: [employer] Prescription Benefit: yes LNOK: Ovi Rendon, father Living Arrangements: Pt lives with 32 y/o son in a single story home with 4 steps to enter with a rail. Pt reports he is I in ADL's and denies concerns at home. Transportation: Pt drives self and denies concerns with transportation. DME/HHC/SNF: Pt has a BGM with sufficient supply of strips and lancets. Pt does not use AD. Pt denies hx of HHC or SNF stays. Pt states no concerns with going home at time of dc. Pt states no further concerns/needs. CM to follow. Advised pt to ask CM if any further question/concerns/needs arise, voices understanding. Pt Goal: Home Plan: Home
[2022-12-12 14:22] VITALS: BP 153/79; PULSE 89; RESP 18; TEMP 36.9; O2SAT 95
[2022-12-12 15:32] LABS: Bedside Glucose 188 mg/dL (74-106)
[2022-12-12 16:32] LABS: Bedside Glucose 197 mg/dL (74-106)
--- NOTE | 2022-12-12 18:09 | CON.PCM.GI_ITS ---
HPI Consult Data Date of Consult: 12/12/22 HPI Narrative Reason for Consultation: Nausea and vomiting HPI Narrative: MORENO EGAN, is a 62 M who presents with intractable nausea vomiting and diarrhea. He has a past medical history of GERD, Former tobacco use, Obesity, Diabetes mellitus type II, HTN, JUANA who presents to the [facility] ED on 12/08/22 with history of 3 days of persistent abdominal discomfort, nausea, emesis and loose stools with more severe diarrhea approximately 3 days ago with improvement of his loose stools however he then developed significant vomiting and on day of presentation had worsening lower abdominal discomfort with pain so severe he reports being at work and becoming very diaphoretic prompting ED evaluation. He notes he had a soft bowel movement today and it appears to be normalizing. He does still have abdominal discomfort primarily epigastric and proximal to his umbilicus described as aching, worse with palpation. He does state he has had hiccups today frequently. Work-up in the ED included T95.7 Temporally with most recent 98.2 orally, heart rate 82, BP 185/94, respiratory rate 22, 98% on room air however most recent assessment BP 184/95, respiratory rate 16, 99% on 1 L nasal cannula, CBC with WC 6.6, hemoglobin 16, platelet 175 without marked shift, CMP with BUN/creatinine 20/1.20, anion gap 9, glucose 260, initial lactic acid 2.5 and repeat following ED interventions and hydration 1.8, T. bili 1.30 otherwise hepatic profile unremarkable, lipase 76, urinalysis with specific gravity 1.010, protein 30, glucose 1000, ketone 50, occult blood 10 with no obvious evidence of UTI, CT abdomen and pelvis with no acute intra-abdominal findings and incidentally noted small hiatal hernia. Currently he is starting to feel better but he has been having the symptoms off and on for the past 4 years. He has never had a colonoscopy. [facility] Medical History (Updated 12/09/22 @ 14:[address] Mariela Narvaez MD) Former tobacco use GERD (gastroesophageal reflux disease) Hypertension Obesity JUANA (obstructive sleep apnea) Type 2 diabetes mellitus Home Medications metformin 500 mg tablet 500 mg PO BID 30 days #60 tabs 12/09/22 [Rx Last Taken Unknown] ondansetron 4 mg disintegrating tablet 4 mg PO Q8H PRN PRN Nausea 5 days #10 tabs 12/09/22 [Rx Last Taken Unknown] Allergy/AdvReac Type Severity Reaction Status Date / Time No Known Allergies Allergy Verified 12/08/22 16:45 Family History (Updated 12/08/22 @ 22:[address] Kate Carrion MD) Mother Diabetes Heart disease Cancer Father No problems noted. Surgical History (Updated 12/08/22 @ 22:[address] Kate Carrion MD) History of cholecystectomy History of surgery on lower extremity Social History (Updated 12/08/22 @ 23:[address] Kate Carrion MD) household members: other details: Notes his son lives with him. Smoking Status: Former smoker alcohol intake: never substance use type: does not use ROS ROS Narrative Admission Review of Systems: CONSTITUTIONAL: No weight loss, fever, chills, + weakness or fatigue. HEENT: Eyes: No visual loss, blurred vision, double vision or yellow sclerae. Ears, Nose, Throat: No hearing loss, sneezing, congestion, runny nose or sore throat. SKIN: No rash or itching, lesions, wounds. CARDIOVASCULAR: No chest pain, chest pressure or chest discomfort, palpitations, edema, orthopnea, syncopal events. RESPIRATORY: No shortness of breath, cough or sputum, wheezing, hemoptysis. GASTROINTESTINAL: + anorexia, nausea, vomiting, diarrhea, abdominal pain, hiccups intermittently, No melena, BRBPR. GENITOURINARY: No dysuria, frequency, urgency or retention. NEUROLOGICAL: No headache, dizziness, syncope, paralysis, ataxia, numbness or tingling in the extremities, focal weakness, change in bowel or bladder control, seizure. MUSCULOSKELETAL: No muscle, back pain, joint pain or stiffness. HEMATOLOGIC: No anemia, bleeding or bruising. LYMPHATICS: No enlarged nodes. No history of splenectomy. PSYCHIATRIC: No history of depression or anxiety. ENDOCRINOLOGIC: + reports of sweating. No cold or heat intolerance. No polyuria or polydipsia. ALLERGIES: No history of asthma, hives, eczema or rhinitis. Physical Exam Narrative General: Alert, oriented, appears to not be feeling well HEENT: Atraumatic, normocephalic Eyes: Anicteric, normal conjunctiva, extraocular movements grossly intact Neck: Supple Respiratory: Clear to auscultation bilaterally, normal respiratory effort Cardiovascular: Regular rate and rhythm GI: Soft, nondistended, no rebound, guarding, rigidity, has some tenderness more so left lower area more than right Extremities: No edema Musculoskeletal: Moving all extremities Neuro: No overt focal neurological deficits Skin: No rashes appreciated Psych: Cooperative Lab / Micro Data 12/12/22 05:50 12/12/22 05:50 Labs: Laboratory Results - last 24 hr 12/10/22 10:40: POC Glucose 188 H 12/11/22 06:17: POC Glucose 234 H 12/11/22 20:49: POC Glucose 209 H 12/12/22 05:50: WBC 6.7, RBC 5.11, Hgb 16.1, Hct 44.0, MCV 86.1, MCH 31.5, MCHC 36.6 H, RDW Std Deviation 35.6, RDW Coeff of Billy 11.2 L, Plt Count 162, MPV 10.4, Immature Gran % (Auto) 0.600, Neut % (Auto) 66.0, Lymph % (Auto) 22.5, [place] % (Auto) 10.2 H, Eos % (Auto) 0.1, Baso % (Auto) 0.6, Absolute Neuts (auto) 4.4, Absolute Lymphs (auto) 1.50, Nucleated RBC % 0, Sodium 135 L, Potassium 3.3 L, Chloride 103, Carbon Dioxide 24.0, Anion Gap 8, BUN 14, Creatinine 0.77, Estim Creat Clear Calc 107.30, Est GFR (MDRD) Af Amer 132, Est GFR (MDRD) Non-Af 109, BUN/Creatinine Ratio 18.2, Glucose 216 H, Calcium 8.5, Total Bilirubin 1.20 H, AST 14 L, ALT 19, Alkaline Phosphatase 43 L, Total Protein 6.5, Albumin 3.2, Globulin 3.3, Albumin/Globulin Ratio 1.0 12/12/22 06:35: POC Glucose 219 H 12/12/22 10:25: POC Glucose 228 H 12/12/22 15:57: POC Glucose 197 H Assessment & Plan Assessment/Plan (1) Gastroenteritis: (2) Abdominal pain: (3) Nausea & vomiting: QUALIFIERS: Vomiting type: unspecified Qualified Code(s): R11.2 - Nausea with vomiting, unspecified PLAN: Plan 62 gentleman comes in with acute nausea vomiting thought to be secondary to acute viral gastroenteritis. He has a history of diabetes, hypertension, BC D who has been experiencing some intermittent worsening abdominal pain and diarrhea. Differential diagnosis for that would be accelerated gastrocolic reflex, dumping syndrome, bile induced gastritis and exocrine pancreatic insufficiency. He should undergo an upper and lower endoscopy as he has never had a colonoscopy in the past. He was explained alternatives, risk, benefits including not withstanding bleeding, infection, sepsis, perforation, need for emergent urgent . He will have an ASA of 3. Charges/Coding Visit Charges Inpatient E&M: 24622 Init Hosp L2
[2022-12-12] MEDS: Electrolyte Solution/Peg's 4000 ML PO (18:48)
[2022-12-12 21:36] VITALS: BP 152/85; PULSE 85; RESP 18; TEMP 37; O2SAT 98
[2022-12-13] VITALS (12 sets, daily range): BP systolic 98–175; BP diastolic 52–102; PULSE 83–100; RESP 16–18; TEMP 36.4–37.3; O2SAT 95–100; BMI 37.5
--- NOTE | 2022-12-13 | COLBX_PTH ---
PATIENT: MORENO EGAN LOC: MS3 U#:[id number] AGE/SX: 62/M [place] [facility] [place]: Dr. Mariela Narvaez MD : 1960 BED: 1 DIS: 12/14/2022 SPEC #: [id number] RECD: 12/13/22 13:58 STATUS: VINCENT JACOBSON #: [id number] SHAILESH: 12/13/22 00:[address]: Jt Olsen DEPT: SURGICAL PATHOLOGY RECD BY: Ingris Burton ENTERED: 12/14/22 08:16 SP TYPE: COLON BX OTHR DR: MD Dr. Evans Barrientos, DO Dr. Mariela Narvaez MD Tissues: A - Duodenum, NOS B - Gastric mucous membrane C - Cecum, NOS D - COLON BIOPSY E - SPLENIC FLEXURE Procedures: Surgery Specimen Level IV HEADER OPERATION: Colonoscopy with biopsies and polypectomy, [place] [place] PRE-OP DIAGNOSIS: Nausea and vomiting TISSUE SUBMITTED: A - Duodenum biopsy, B - Gastric body biopsy, C - Cecal polyp biopsy and polypectomy, D - Random colon biopsy, E - Splenic flexure polyp x2 MICROSCOPIC DIAGNOSIS A. Duodenum, biopsy: Fragments of duodenal mucosa, no pathologic diagnosis. B. Gastric body, biopsy: Mild gastritis. See microscopic description and comment. C. Cecal polyp, biopsy: Fragments of tubular adenoma. D. Colon, random biopsy: Fragments of colonic mucosa, no pathologic diagnosis. E. Splenic flexure polyp x2, polypectomy: Tubular adenoma. Inflammatory polyp. SJ: 12/17/2022 COMMENT B. The results of immunohistochemistry for Helicobacter pylori will be reported separately ([id number]). MICROSCOPIC DESCRIPTION Slides are reviewed. The specimen shows fragments of gastric mucosa with chronic inflammatory cell infiltrates in the lamina propria consisting of lymphocytes and plasma cells, consistent with mild chronic gastritis. GROSS DESCRIPTION A - Received in fixative is one container labeled with the patient's name and designated duodenum biopsy. The specimen consists of multiple irregular fragments of light jimenez soft tissue that in aggregate measure 1.0 x 0.5 x 0.1 cm. The specimen is totally submitted in one cassette. B - Received in fixative is one container labeled with the patient's name and designated gastric body biopsy. The specimen consists of multiple irregular fragments of light jimenez soft tissue that in aggregate measure 1.0 x 0.5 x 0.1 cm. The specimen is totally submitted in one cassette. C - Received in fixative is one container labeled with the patient's name and designated cecal polyp biopsy. The specimen consists of multiple irregular fragments of light jimenez soft tissue that in aggregate measure 1.0 x 0.3 x 0.1 cm. The specimen is totally submitted in one cassette. D - Received in fixative is one container labeled with the patient's name and designated random colon biopsy. The specimen consists of multiple irregular fragments of light jimenez soft tissue that in aggregate measure 1.0 x 0.5 x 0.1 cm. The specimen is totally submitted in one cassette. E - Received in fixative is one container labeled with the patient's name and designated splenic flexure polyp. The specimen consists of multiple irregular fragments of light jimenez soft tissue that in aggregate measure 1.5 x 0.3 x 0.1 cm. The specimen is totally submitted in one cassette. / SJ:rg 12/14/2022 TC:1 CPT: 25492 x5
[2022-12-13] MEDS: MELATONIN 3 MG TABLET PO (00:26)
[2022-12-13 01:15] LABS: Bedside Glucose 203 mg/dL (74-106)
[2022-12-13 04:47] LABS: Absolute Lymphocyte Count 3.07 X10^3/uL (0.83-4.51); Absolute Neutrophil Count 3.8 X10^3/uL (2.0-7.7); Basophil# 0.07 X10^3/uL; Basophil% 0.9 % (0-1); Eosinophil# 0.07 X10^3/uL; Eosinophils% 0.9 % (0-5); Hematocrit 41.4 % (40-54); Hemoglobin 14.8 g/dL (13.0-16.5); Lymphocyte # 3.07 X10^3/ul (0.83-4.51); Lymphocyte % 38.8 % (19-41); Mean Corp Hgb Conc 35.7 g/dL (32-36); Mean Corpuscular Hgb 31.6 pg (27.0-32.0); Mean Corpuscular Volume 88.5 fL (80-94); Mean Platelet Vol. 10.7 fl (6.2-12.0); Monocyte# 0.87 X10^3/uL; NRBC Flagged by Analyzer 0 % (0-5); Platelet Count 173 K/mm3 (150-450); RBC Distribution Width CV 11.3 % (11.6-14.6); RBC Distribution Width SD 36.2 fl (35.1-43.9); Red Blood Count 4.68 M/mm3 (4.6-6.2); White Blood Count 7.9 K/mm3 (4.4-11.0)
[2022-12-13 05:14] LABS: AST(SGOT) 12 U/L (15-37); Alanine Aminotransfer ALT/SGPT 19 U/L (16-61); Alkaline Phosphatase 37 U/L (45-117); Anion Gap 6 (5-15); BUN 14 mg/dL (7-18); BUN/Creat Ratio 16.9 RATIO (10-20); Calcium,Total 8.2 mg/dL (8.5-10.1); Chloride 105 mmol/L (98-107); Creatinine, Serum 0.83 mg/dL (0.70-1.30); EST Glomerular Filtration Rate 100 mL/min (>60); Est Glom Filt Rate - Afr Amer 121 mL/min (>60); Estimated Creatinine Clearance 99.54 ml/min; Glucose 154 mg/dL (74-106); Potassium 2.9 mmol/L (3.5-5.1); Sodium Level 137 mmol/L (136-145)
--- NOTE | 2022-12-13 06:00 | EKG12_ITS ---
Test Reason : PREOP Blood Pressure : / mmHG Vent. Rate : 092 BPM Atrial Rate : 092 BPM P-R Int : 178 ms QRS Dur : 102 ms QT Int : 398 ms P-R-T Axes : 050 -34 058 degrees QTc Int : 492 ms Sinus rhythm with frequent Premature ventricular complexes Left axis deviation Prolonged QT Abnormal ECG When compared with ECG of 30-SEP-2015 05:41, Premature ventricular complexes are now Present Nonspecific T wave abnormality now evident in Lateral leads Confirmed by TREVA LYNN, MARIA DEL ROSARIO ([id number]), acquisitions editor JENNIFER DAVIS ([id number]) on 12/14/2022 12:57:02 PM Referred By: Kate Carrion Confirmed By:MARIA DEL ROSARIO TILLEY MD
[2022-12-13] MEDS: 0.9% Saline Lock 10 ML Syringe IV ×2 (06:34→15:27)
[2022-12-13] MEDS: Morphine 2 MG/ML Syringe IV ×2 (06:34→10:00)
[2022-12-13 07:19] LABS: Bedside Glucose 165 mg/dL (74-106)
--- NOTE | 2022-12-13 07:27 | PN.HOSP_ITS ---
Reason for Visit Reason for Visit: Diagnoses Noninfective gastroenteritis and colitis, unspecified (12/10/22) Unspecified abdominal pain (12/10/22) Nausea with vomiting, unspecified (12/10/22) Subjective Subjective Patient reports he been feeling somewhat better yesterday during the day but has abdominal pain again today, has had bowel movements with bowel prep for colonoscopy and endoscopy Objective Data Objective Data Vital Signs: Vital Signs Temp Pulse Resp BP Pulse Ox O2 Del Method O2 Flow Rate 98.6 F 91 18 159/100 H 98 Room Air 1 12/13/22 06:28 12/13/22 07:06 12/13/22 06:28 12/13/22 07:06 12/13/22 06:28 12/13/22 06:28 12/08/22 22:22 Oxygen Flow Rate (L/min) 1 Oxygen Delivery Method Room Air Weight: 123.632 kg Body Mass Index (BMI) 38.1 Intake & Output: Intake and Output for Last 24 Hours 12/11/22 12/12/22 12/13/22 23:59 23:59 23:59 Intake Total 1036.67 / 1036.67 5510 / 5510 Balance 1036.67 / 1036.67 5510 / 5510 Lab / Micro Data 12/13/22 04:30 12/13/22 04:30 Labs: Laboratory Results - last 24 hr 12/10/22 10:40: POC Glucose 188 H 12/12/22 10:25: POC Glucose 228 H 12/12/22 15:57: POC Glucose 197 H 12/12/22 21:42: POC Glucose 203 H 12/13/22 04:30: WBC 7.9, RBC 4.68, Hgb 14.8, Hct 41.4, MCV 88.5, MCH 31.6, MCHC 35.7, RDW Std Deviation 36.2, RDW Coeff of Billy 11.3 L, Plt Count 173, MPV 10.7, Immature Gran % (Auto) 0.400, Neut % (Auto) 48.0, Lymph % (Auto) 38.8, Crawford % (Auto) 11.0 H, Eos % (Auto) 0.9, Baso % (Auto) 0.9, Absolute Neuts (auto) 3.8, Absolute Lymphs (auto) 3.07, Nucleated RBC % 0, Sodium 137, Potassium 2.9 L, Chloride 105, Carbon Dioxide 26.0, Anion Gap 6, BUN 14, Creatinine 0.83, Estim Creat Clear Calc 99.54, Est GFR (MDRD) Af Amer 121, Est GFR (MDRD) Non-Af 100, BUN/Creatinine Ratio 16.9, Glucose 154 H, Calcium 8.2 L, Total Bilirubin 1.10 H, AST 12 L, ALT 19, Alkaline Phosphatase 37 L, Total Protein 6.0 L, Albumin 3.0 L, Globulin 3.0, Albumin/Globulin Ratio 1.0 12/13/22 06:12: POC Glucose 165 H Micro: Microbiology 12/09/22 14:40 Stool Enteric Bacteriology - Final 12/09/22 14:40 Stool C. difficile DNA Amplification - Final Physical Exam Narrative General: Alert, oriented, appears to not be feeling well HEENT: Atraumatic, normocephalic Eyes: Anicteric, normal conjunctiva, extraocular movements grossly intact Neck: Supple Respiratory: Clear to auscultation bilaterally, normal respiratory effort Cardiovascular: Regular rate and rhythm GI: Soft, nondistended, no rebound, guarding, rigidity, has some tenderness but roughly unchanged from previous Extremities: No edema Musculoskeletal: Moving all extremities Neuro: No overt focal neurological deficits Skin: No rashes appreciated Psych: Cooperative Assessment & Plan Assessment/Plan (1) Nausea & vomiting: QUALIFIERS: Vomiting type: unspecified Qualified Code(s): R11.2 - Nausea with vomiting, unspecified PLAN: Plan Here 12/08 with intractable nausea, vomiting, diarrhea for 3 days with worsened abdominal discomfort and vomiting on day of presentation. #Intractable nausea and vomiting with diarrhea -Possibly secondary to gastroenteritis -White blood cell count within normal limits, initial lactic acid 2.5 and patient received IV fluids, repeat lactic improved to 1.8 -CT abdomen pelvis with no acute intra-abdominal findings -Has previous history of cholecystectomy -Pro-Joel negative, lipase 76, T. bili 1.3 and normalized in the a.m. with otherwise normal liver panel, troponin 28 -Admitted due to not being able to tolerate p.o., given IVF and started on clears -Pain control, antiemetics as needed -Stool panel ordered but uncollected -12/09: Patient initially doing better and tolerating diet however 2 hours after lunch did develop some abdominal pain and nausea and had bowel movement, stool studies sent, discharge canceled, continue supportive care -12/10: Has waxed and waned, C. difficile and GI panel negative, ova and parasites pending, de-escalate diet, will repeat CT with IV and p.o. contrast -12/11: CT of abdomen demonstrated mild perinephric stranding and bladder distention but no other acute abnormalities. Patient still having abdominal pain and nausea, resume fluids. Postvoid yesterday with patient urinating 500 and having 250 left and bladder but he insisted he had been emptying well. Will check UA and repeat postvoid, suspect that urinary retention whether it be secondary to BPH or neurogenic from his uncontrolled diabetes. If this is is the case he will get relief from draining bladder. We will need to maintain regular bowel movements -12/12: Now having bowel movements, nausea slightly better but still has the abdominal pain, inflammatory markers within normal limits, unclear etiology, gastroenterology consulted -12/13: GI evaluated, patient for endoscopy and colonoscopy today #Hypokalemia -Replace #Type 2 diabetes mellitus -Glucose checks and sliding scale insulin -12/10: Hemoglobin A1c greater than 10, started 5 units of long-acting insulin -12/11: Increase long-acting insulin to 10, will likely need to be discharged home on insulin -12/12: Continue to adjust as warranted #Hypertension -Received IV hydralazine -Continue to monitor to assess need for daily medication -12/10: Added amlodipine -12/11: Widely variable blood pressure, if this is urinary retention suspect blood pressure will improve with treatment of underlying etiology -12/12: Increased amlodipine #Obesity -BMI 38.7 kg/m? -Complicates treatment, prognosis, outcomes -Recommend weight loss and lifestyle changes #hx JUANA -Given intractable nausea and vomiting his nightly CPAP was held temporarily with supplemental oxygen as needed #DVT ppx: We will add Lovenox subcu Mariela Narvaez MD Time spent in the patient's overall evaluation,decision-making process, review of diagnostic data, adjustment of management, discussion with other providers, nursing nursing and ancillary staff involved in patient's care documentation, 30 minutes Charges/Coding Visit Charges Inpatient E&M: 29450 Subs Hosp L2
[2022-12-13] MEDS: Potassium Chloride 10mEq/100mL 10 MEQ/100 ML IV.SOLN. 100 MEQ IV BOLUS ×4 (08:39→13:54)
[2022-12-13] MEDS: Potassium Chloride Oral Tablet 20 MEQ 40 MEQ PO (08:48)
[2022-12-13 09:40] LABS: Hemoglobin A1c 10.7 % (3.8-5.6)
[2022-12-13] MEDS: hydrALAZINE 20 MG/ML Vial 10 MG IV ×2 (09:59→15:26)
[2022-12-13] MEDS: 0.9% Normal Saline 1,000 ML 100 ML IV ×2 (10:00→17:06)
[2022-12-13 11:50] LABS: Bedside Glucose 200 mg/dL (74-106)
--- NOTE | 2022-12-13 12:45 | IMM_PTH ---
PATIENT: MORENO EGAN LOC: MS3 U#:[id number] AGE/SX: 62/M ROOM: [facility] [place] [facility] RE12/10/[address]: Dr. Mariela Narvaez MD : 1960 BED: 1 DIS: 12/14/2022 SPEC #: [id number] RECD: 12/14/22 14:02 STATUS: VINCENT REChago #: [id number] SHAILESH: 12/13/22 12:[address]: Jt Olsen DEPT: IMMUNOHISTOCHEMISTRY RECD BY: Cira Loyd ENTERED: 12/14/22 14:03 SP TYPE: IMMUNO OTHR DR: MD Dr. Evans Barrientos DO Dr. Paige Pierce, MD Tissues: B - Stomach, NOS Procedures: H Pylori (initial) PHYSICIAN & INSTITUTION [address] [address] SPECIMEN INFORMATION: Tissue Source: B - Gastric body Clinical Info: Nausea and vomiting Specimen Number: [id number] CPT code: 31777 METHODOLOGY: Deparaffinized sections of prefer/formalin-fixed tissue or PAP/DQ stained slides are incubated with monoclonal/polyclonal antibodies/oligonucleotide probes. Localization is made via biotin free immunoperoxidase method. Appropriate controls are performed and reacted as expected. Results on target cell population are indicated in the following table: RESULTS: ANTIBODY / CLONE RESULT Block B H Pylori (polyclonal) negative These tests were developed and their performance characteristics determined by [facility]. They may not have been cleared or approved by the U.S. Food and Drug Administration. The FDA has determined that such clearance or approval is not necessary. The above immunohistochemical/dualISH markers are ordered and reviewed by the Pathologist. INTERPRETATION: B. Gastric body, biopsy: Negative for H. pylori organisms. SJ: 12/18/22
--- NOTE | 2022-12-13 13:46 | OP.EGD_ITS ---
Patient Name: Fidel Rendon Procedure Date: 12/13/2022 12:55 PM Date of : 1960 Age: 62 Procedure: Upper GI endoscopy Indications: Epigastric abdominal pain Providers: Jt Olsen DO Referring MD: Kate Crarion Medicines: Monitored Anesthesia Care Patient Profile: This is a 62 year old male. Refer to note in patient chart for documentation of history and physical. Patient has symptoms of acute abdominal cramping and acute vomiting. Complications: No immediate complications. Procedure: Pre-Anesthesia Assessment: - Prior to the procedure, a History and Physical was performed, and patient medications and allergies were reviewed. The risks and benefits of the procedure and the sedation options and risks were discussed with the patient. All questions were answered and informed consent was obtained. Patient identification and proposed procedure were verified by the physician. Mental Status Examination: normal. CV Examination: normal. Prophylactic Antibiotics: The patient does not require prophylactic antibiotics. Prior Anticoagulants: The patient has taken no previous anticoagulant or antiplatelet agents. After reviewing the risks and benefits, the patient was deemed in satisfactory condition to undergo the procedure. The anesthesia plan was to use monitored anesthesia care (MAC). Immediately prior to administration of medications, the patient was re-assessed for adequacy to receive sedatives. The heart rate, respiratory rate, oxygen saturations, blood pressure, adequacy of pulmonary ventilation, and response to care were monitored throughout the procedure. The physical status of the patient was re-assessed after the procedure. After obtaining informed consent, the endoscope was passed under direct vision. Throughout the procedure, the patient's blood pressure, pulse, and oxygen saturations were monitored continuously. The colonoscope was introduced through the mouth, and advanced to the second part of duodenum. The upper GI endoscopy was accomplished without difficulty. The patient tolerated the procedure well. Scope In: 1:09:10 PM Scope Out: 1:14:26 PM Total Procedure Duration Time 0 hours 5 minutes 16 seconds Findings: LA Grade A (one or more mucosal breaks less than 5 mm, not extending between tops of 2 mucosal folds) esophagitis with no bleeding was found 36 to 37 cm from the incisors. A small hiatal hernia was present. Localized moderate inflammation characterized by congestion (edema), erosions and erythema was found in the stomach. Biopsies were taken with a cold forceps for histology. Verification of patient identification for the specimen was done. Estimated blood loss was minimal. Many non-obstructing oozing cratered duodenal ulcers with pigmented material were found in the duodenal bulb. The largest lesion was 6 mm in largest dimension. Coagulation for hemostasis using monopolar probe was successful. Estimated blood loss was minimal. Biopsies were taken with a cold forceps for histology. Verification of patient identification for the specimen was done. Estimated blood loss was minimal. Impression: - LA Grade A reflux esophagitis. - Small hiatal hernia. - Acute gastritis. Biopsied. - Multiple non-obstructing oozing duodenal ulcers with pigmented material. Treated with a monopolar probe. Biopsied. Recommendation: - [facility] patient to [facility]. - Resume previous diet. - Continue present medications. - Await pathology results. Procedure Code(s): --- Professional --- 27336, 59, Esophagogastroduodenoscopy, flexible, transoral; with control of bleeding, any method 96624, Esophagogastroduodenoscopy, flexible, transoral; with biopsy, single or multiple CPT copyright 2017 [employer]. All rights reserved. The codes documented in this report are preliminary and upon radio announcer review may be revised to meet current compliance requirements. Jt Olsen DO 12/13/2022 1:45:57 PM This report has been signed electronically. Number of Addenda: 0 Note Initiated On: 12/13/2022 12:55 PM
--- NOTE | 2022-12-13 13:47 | OP.CCLET_ITS ---
12/13/2022 Evans Napier [address] [facility] [place] [address] Re : Upper GI endoscopy procedure for Fidel Rendon Dear Dr. Napier This procedure was performed on December. My impressions and recommendations are as follows: Impressions : - LA Grade A reflux esophagitis. - Small hiatal hernia. - Acute gastritis. Biopsied. - Multiple non-obstructing oozing duodenal ulcers with pigmented material. Treated with a monopolar probe. Biopsied. Recommendations : - Return patient to [facility] for [facility] care. - Resume previous diet. - Continue present medications. - Await pathology results. My findings are described in the full procedure note, which is enclosed. If I can be of further assistance, please feel free to contact me at . Sincerely, Jt Olsen, 12/13/2022 1:45:57 PM This report has been signed electronically.
--- NOTE | 2022-12-13 13:50 | OP.COLON_ITS ---
Patient Name: Fidel Rendon Procedure Date: 12/13/2022 1:14 PM Date of : 1960 Age: 62 Procedure: Colonoscopy Indications: Clinically significant diarrhea of unexplained origin Providers: Jt Olsen DO Referring MD: Kate Carrion Patient Profile: This is a 62 year old male. Refer to note in patient chart for documentation of history and physical. Patient has symptoms of acute abdominal cramping and acute vomiting. Last Colonoscopy: none. The patient's first colonoscopy is today. Complications: No immediate complications. Procedure: Pre-Anesthesia Assessment: - Prior to the procedure, a History and Physical was performed, and patient medications and allergies were reviewed. The risks and benefits of the procedure and the sedation options and risks were discussed with the patient. All questions were answered and informed consent was obtained. Patient identification and proposed procedure were verified by the physician. Mental Status Examination: normal. CV Examination: normal. Prophylactic Antibiotics: The patient does not require prophylactic antibiotics. Prior Anticoagulants: The patient has taken no previous anticoagulant or antiplatelet agents. After reviewing the risks and benefits, the patient was deemed in satisfactory condition to undergo the procedure. The anesthesia plan was to use monitored anesthesia care (MAC). Immediately prior to administration of medications, the patient was re-assessed for adequacy to receive sedatives. The heart rate, respiratory rate, oxygen saturations, blood pressure, adequacy of pulmonary ventilation, and response to care were monitored throughout the procedure. The physical status of the patient was re-assessed after the procedure. After I obtained informed consent, the scope was passed under direct vision. Throughout the procedure, the patient's blood pressure, pulse, and oxygen saturations were monitored continuously. The colonoscope was introduced through the anus and advanced to the cecum, identified by appendiceal orifice and ileocecal valve. The colonoscopy was performed without difficulty. The patient tolerated the procedure well. The quality of the bowel preparation was fair. Scope In: 1:15:52 PM Scope Withdrawal Time 0 hours 21 minutes 31 seconds Scope Out: 1:42:24 PM Total Procedure Duration Time 0 hours 26 minutes 32 seconds Findings: The perianal and digital rectal examinations were normal. Multiple small and large-mouthed diverticula were found in the recto-sigmoid colon, sigmoid colon and descending colon. Five sessile polyps were found in the sigmoid colon, splenic flexure and ascending colon. The polyps were 1 to 2 mm in size. These polyps were removed with a hot snare. Resection and retrieval were complete. Verification of patient identification for the specimen was done. Estimated blood loss was minimal. An area of mildly congested mucosa was found in the sigmoid colon. Biopsies were taken with a cold forceps for histology. Verification of patient identification for the specimen was done. Estimated blood loss was minimal. Impression: - Preparation of the colon was fair. - Diverticulosis in the recto-sigmoid colon, in the sigmoid colon and in the descending colon. - Five 1 to 2 mm polyps in the sigmoid colon, at the splenic flexure and in the ascending colon, removed with a hot snare. Resected and retrieved. - Congested mucosa in the sigmoid colon. Biopsied. Recommendation: - [facility] patient to [facility] for [facility] care. - Resume previous diet. - Continue present medications. - Await pathology results. - Repeat colonoscopy in 3 years for surveillance. Procedure Code(s): --- Professional --- 84683, Colonoscopy, flexible; with removal of tumor(s), polyp(s), or other lesion(s) by snare technique 56957, 59, Colonoscopy, flexible; with biopsy, single or multiple CPT copyright 2017 [employer]. All rights reserved. The codes documented in this report are preliminary and upon healthcare insurance sales agent review may be revised to meet current compliance requirements. Jt Olsen DO 12/13/2022 1:49:52 PM This report has been signed electronically. Number of Addenda: 0 Note Initiated On: 12/13/2022 1:14 PM
--- NOTE | 2022-12-13 13:51 | OP.CCLET_ITS ---
12/13/2022 Evans Napier [address] [facility] [place] [address] Re : Colonoscopy procedure for Fidel Rendon Dear Dr. Napier This procedure was performed on December. My impressions and recommendations are as follows: Impressions : - Preparation of the colon was fair. - Diverticulosis in the recto-sigmoid colon, in the sigmoid colon and in the descending colon. - Five 1 to 2 mm polyps in the sigmoid colon, at the splenic flexure and in the ascending colon, removed with a hot snare. Resected and retrieved. - Congested mucosa in the sigmoid colon. Biopsied. Recommendations : - [facility] patient to [facility] for [facility] care. - Resume previous diet. - Continue present medications. - Await pathology results. - Repeat colonoscopy in 3 years for surveillance. My findings are described in the full procedure note, which is enclosed. If I can be of further assistance, please feel free to contact me at . Sincerely, Jt Olsen, 12/13/2022 1:49:52 PM This report has been signed electronically.
[2022-12-13 16:42] LABS: Bedside Glucose 195 mg/dL (74-106)
[2022-12-13] MEDS: Insulin Glargine-YFGN 100 UNIT/ML Pen 12 UNIT SC (17:08)
[2022-12-13] MEDS: amLODIPine 10 MG Tablet PO (17:08)
[2022-12-13] MEDS: Insulin Lispro 100 UNIT/ML INSULN.PEN SC (22:16)
[2022-12-13 22:38] LABS: Bedside Glucose 191 mg/dL (74-106)
[2022-12-14 02:56] VITALS: BP 121/70; PULSE 80; RESP 16; TEMP 36.7; O2SAT 95
[2022-12-14] MEDS: 0.9% Normal Saline 1,000 ML 100 ML IV (04:03)
[2022-12-14 05:42] VITALS: BMI 37.3
[2022-12-14] MEDS: Enoxaparin 40 MG/0.4 ML Syringe SC (06:08)
[2022-12-14] MEDS: Insulin Lispro 100 UNIT/ML INSULN.PEN SC ×2 (06:13→11:31)
[2022-12-14] MEDS: oxyCODONE 5 MG Tablet PO (06:21)
--- NOTE | 2022-12-14 06:47 | PCM.PN.HOSP ---
Reason for Visit Reason for Visit: Diagnoses Noninfective gastroenteritis and colitis, unspecified (12/10/22) Unspecified abdominal pain (12/10/22) Nausea with vomiting, unspecified (12/10/22) Objective Data Objective Data Vital Signs: Vital Signs Temp Pulse Resp BP Pulse Ox O2 Del Method O2 Flow Rate 98.1 F 80 16 121/70 H 95 Room Air 1 12/14/22 02:56 12/14/22 02:56 12/14/22 02:56 12/14/22 02:56 12/14/22 02:56 12/14/22 02:56 12/08/22 22:22 Oxygen Flow Rate (L/min) 1 Oxygen Delivery Method Room Air Weight: 121.6 kg Body Mass Index (BMI) 37.3 Intake & Output: Intake and Output for Last 24 Hours 12/12/22 12/13/22 12/14/22 23:59 23:59 23:59 Intake Total 5510 / 5510 2963.33 / 3083.33 606.67 / 606.67 Output Total 400 / 800 850 / 850 Balance 5510 / 5510 2563.33 / 2283.33 -243.33 / -243.33 Lab / Micro Data 12/13/22 04:30 12/13/22 04:30 Labs: Laboratory Results - last 24 hr 12/13/22 04:30: Hemoglobin A1c 10.7 H 12/13/22 06:12: POC Glucose 165 H 12/13/22 11:22: POC Glucose 200 H 12/13/22 16:22: POC Glucose 195 H 12/13/22 22:14: POC Glucose 191 H Micro: Microbiology 12/09/22 14:40 Stool Enteric Bacteriology - Final 12/09/22 14:40 Stool C. difficile DNA Amplification - Final Assessment & Plan Assessment/Plan (1) Nausea & vomiting: QUALIFIERS: Vomiting type: unspecified Qualified Code(s): R11.2 - Nausea with vomiting, unspecified PLAN: Plan Here 12/08 with intractable nausea, vomiting, diarrhea for 3 days with worsened abdominal discomfort and vomiting on day of presentation. #Intractable nausea and vomiting with diarrhea -Possibly secondary to gastroenteritis -White blood cell count within normal limits, initial lactic acid 2.5 and patient received IV fluids, repeat lactic improved to 1.8 -CT abdomen pelvis with no acute intra-abdominal findings -Has previous history of cholecystectomy -Pro-Joel negative, lipase 76, T. bili 1.3 and normalized in the a.m. with otherwise normal liver panel, troponin 28 -Admitted due to not being able to tolerate p.o., given IVF and started on clears -Pain control, antiemetics as needed -Stool panel ordered but uncollected -12/09: Patient initially doing better and tolerating diet however 2 hours after lunch did develop some abdominal pain and nausea and had bowel movement, stool studies sent, discharge canceled, continue supportive care -12/10: Has waxed and waned, C. difficile and GI panel negative, ova and parasites pending, de-escalate diet, will repeat CT with IV and p.o. contrast -12/11: CT of abdomen demonstrated mild perinephric stranding and bladder distention but no other acute abnormalities. Patient still having abdominal pain and nausea, resume fluids. Postvoid yesterday with patient urinating 500 and having 250 left and bladder but he insisted he had been emptying well. Will check UA and repeat postvoid, suspect that urinary retention whether it be secondary to BPH or neurogenic from his uncontrolled diabetes. If this is is the case he will get relief from draining bladder. We will need to maintain regular bowel movements -12/12: Now having bowel movements, nausea slightly better but still has the abdominal pain, inflammatory markers within normal limits, unclear etiology, gastroenterology consulted -12/13: GI evaluated, patient for endoscopy and colonoscopy today -12/14: Findings as below, biopsies taken, continue PPI, sucralfate, advance diet as tolerated, remains on fluids because of poor p.o. intake, DC when p.o. improves, symptomatic care #colonic polyps x5/diverticulosis/sigmoid colon congestion -Status post resection of polyps which were 1 to 2 mm and biopsy of sigmoid colon congestion of unclear clinical significance -We will need repeat colonoscopy in 3 years unless pathology alters that plan -We will need to follow-up with GI in the office for biopsy results and further management -GI following #LA grade A reflux esophagitis/small hiatal hernia/acute gastritis/multiple non obstructing oozing duodenal ulcers with pigmental material -Continue PPI twice daily -Duodenal ulcers treated with probe and biopsies taken -Sucralfate added #Hypokalemia -Replace #Type 2 diabetes mellitus -Glucose checks and sliding scale insulin -12/10: Hemoglobin A1c greater than 10, started 5 units of long-acting insulin -12/11: Increase long-acting insulin to 10, will likely need to be discharged home on insulin -12/12: Continue to adjust as warranted -12/14: Improving control with present management, suspect will need to DC on insulin given A1c of 10.7 #Hypertension -Received IV hydralazine -Continue to monitor to assess need for daily medication -12/10: Added amlodipine -12/11: Widely variable blood pressure, if this is urinary retention suspect blood pressure will improve with treatment of underlying etiology -12/12: Increased amlodipine #Obesity -BMI 38.7 kg/m? -Complicates treatment, prognosis, outcomes -Recommend weight loss and lifestyle changes #hx JUANA -Given intractable nausea and vomiting his nightly CPAP was held temporarily with supplemental oxygen as needed #DVT ppx: We will add Lovenox subcu Mariela Narvaez MD Charges/Coding Visit Charges Inpatient E&M: 99556 Subs Hosp L2
[2022-12-14 06:49] LABS: Absolute Lymphocyte Count 1.75 X10^3/uL (0.83-4.51); Absolute Neutrophil Count 4.6 X10^3/uL (2.0-7.7); Basophil# 0.02 X10^3/uL; Basophil% 0.3 % (0-1); Eosinophil# 0.02 X10^3/uL; Eosinophils% 0.3 % (0-5); Hematocrit 42.6 % (40-54); Hemoglobin 15.5 g/dL (13.0-16.5); Lymphocyte # 1.75 X10^3/ul (0.83-4.51); Lymphocyte % 24.2 % (19-41); Mean Corp Hgb Conc 36.4 g/dL (32-36); Mean Corpuscular Hgb 31.7 pg (27.0-32.0); Mean Corpuscular Volume 87.1 fL (80-94); Mean Platelet Vol. 10.8 fl (6.2-12.0); Monocyte# 0.78 X10^3/uL; Monocyte% 10.8 % (0-10); NRBC Flagged by Analyzer 0 % (0-5); Neutrophil # 4.61 X10^3/uL (2.7-7.7); Neutrophil % 63.8 % (47-70); Platelet Count 177 K/mm3 (150-450); RBC Distribution Width CV 11.5 % (11.6-14.6); RBC Distribution Width SD 36.7 fl (35.1-43.9); Red Blood Count 4.89 M/mm3 (4.6-6.2); White Blood Count 7.2 K/mm3 (4.4-11.0)
[2022-12-14 07:05] LABS: Bedside Glucose 198 mg/dL (74-106)
[2022-12-14] MEDS: Sucralfate 1 GM Tablet PO ×2 (07:30→11:30)
[2022-12-14 07:47] LABS: ALB/GLOB Ratio 1.1 RATIO (0.9-2.4); AST(SGOT) 17 U/L (15-37); Alanine Aminotransfer ALT/SGPT 20 U/L (16-61); Albumin, Serum 3.2 g/dL (3.2-5.0); Alkaline Phosphatase 38 U/L (45-117); Anion Gap 9 (5-15); BUN 14 mg/dL (7-18); BUN/Creat Ratio 15.4 RATIO (10-20); Calcium,Total 8.7 mg/dL (8.5-10.1); Chloride 104 mmol/L (98-107); Creatinine, Serum 0.91 mg/dL (0.70-1.30); EST Glomerular Filtration Rate 90 mL/min (>60); Est Glom Filt Rate - Afr Amer 109 mL/min (>60); Estimated Creatinine Clearance 90.79 ml/min; Globulin 2.9 g/dL (2.2-4.2); Glucose 200 mg/dL (74-106); Potassium 3.2 mmol/L (3.5-5.1); Protein, Total 6.1 g/dL (6.4-8.2); Sodium Level 136 mmol/L (136-145)
[2022-12-14 08:36] VITALS: BP 158/87; PULSE 86; RESP 16; TEMP 36.9; O2SAT 93
[2022-12-14] MEDS: amLODIPine 10 MG Tablet PO (09:27)
[2022-12-14] MEDS: Insulin Glargine-YFGN 100 UNIT/ML Pen 12 UNIT SC (09:27)
[2022-12-14] MEDS: Potassium Chloride Oral Tablet 20 MEQ 60 MEQ PO (11:34)
[2022-12-14 12:01] LABS: Bedside Glucose 225 mg/dL (74-106)
[2022-12-14 14:01] VITALS: BP 144/74; PULSE 85; RESP 16; TEMP 36.8; O2SAT 97
--- NOTE | 2022-12-14 14:45 | DS.PCM_ITS ---
Providers Date of Admission: 12/10/22 Date of Discharge: 12/14/22 Primary Care Physician: Dr. Evans Napier, DO Consultations 12/12/22 05:55 Consult: Gastroenterology AM (NON MEDS) Consulting Provider: [facility] Reason for Consult: Intractable abd pain and nausea, workup unrevealing but symptoms persist EMERGENT Consult: No MD Notified: Yes Date Notified: 12/11/22 Time Notified: 18:19 Method of Notification: Text Reason For Visit: Nausea, vomiting, abdominal pain Diagnosis Discharge Diagnosis (1) Nausea & vomiting: Status: Acute Code(s): R11.2 - Nausea with vomiting, unspecified Qualifiers: Vomiting type: unspecified Qualified Code(s): R11.2 - Nausea with vomiting, unspecified (2) Gastritis: Status: Acute Code(s): K29.70 - Gastritis, unspecified, without bleeding (3) Duodenal ulcer disease: Status: Acute Code(s): K26.9 - Duodenal ulcer, unspecified as acute or chronic, without hemorrhage or perforation (4) Colon polyps: Status: Acute Code(s): K63.5 - Polyp of colon (5) Diabetes mellitus: Status: Chronic Code(s): E11.9 - Type 2 diabetes mellitus without complications Qualifiers: Diabetes mellitus type: type 2 Plan #Intractable nausea and vomiting w/ gastritis and duodenal ulcers #colonic polyps x5/diverticulosis/sigmoid colon congestion #LA grade A reflux esophagitis/small hiatal hernia/acute gastritis/multiple non obstructing oozing duodenal ulcers with pigmental #Hypokalemia #Type 2 diabetes mellitus #Hypertension #Obesity #hx JUANA Medications at Discharge Home Medications ondansetron 4 mg disintegrating tablet 4 mg PO Q8H PRN PRN Nausea 5 days #10 tabs 12/09/22 amlodipine 10 mg tablet 10 mg PO DAILY 30 days #30 tabs 12/14/22 insulin glargine-yfgn 100 unit/mL (3 mL) subcutaneous pen 12 unit (0.12 mL) subcut DAILY #15 mL 12/14/22 pantoprazole 40 mg tablet,delayed release (Protonix) 40 mg PO BID 30 days #60 tabs 12/14/22 sucralfate 1 gram tablet 1 g PO ACHS 30 days #120 tabs 12/14/22 Hospital Course Procedures - (egd, colonoscopy) Summary of Care Provided Minutes Spent on Discharge: 38 Hospital Course: Here 12/08 with intractable nausea, vomiting, diarrhea for 3 days with worsened abdominal discomfort and vomiting on day of presentation. Patient was admitted and started IV fluids and given clear liquids. Initially the day after discharge he felt much better and it was felt that this was self-limited gastroenteritis however in the afternoon he had recurrence of abdominal pain and nausea and vomiting and did have a bowel movement which was sent for studies but this was negative, diarrhea had resolved but the abdominal pain and nausea persisted despite unremarkable work-up including CT scan of the abdomen which was unrevealing for GI source, query distended bladder and some perinephric stranding however patient did not have significant postvoid residual on the second day he was checked and had no flank pain or other symptoms consistent wi th urinary renal infection. Inflammatory markers were negative and he did not have elevated white blood cell count or significant liver dysfunction. Ultimately GI consulted due to continued nausea, vomiting, abdominal pain with unclear etiology and he was taken for upper and lower endoscopies on 12/13 which demonstrated colonic polyps x5/diverticulosis/sigmoid colon congestion and LA grade A reflux esophagitis/small hiatal hernia/acute gastritis/multiple non obstructing oozing duodenal ulcers with pigmental material. He had the polyps removed, sigmoid biopsied and had the duodenal ulcers treated as well. He was already on PPI twice daily and sucralfate added. On day of discharge he reports overall he was feeling better and was tolerating diet. Patient would like to go home and recover the rest away at home. During his hospital stay he also was found to have significant hyperglycemia and A1c was 10.7 and he was started on insulin, he also was persistently hypertensive and was started on amlodipine. Also had to have his potassium replaced. On day of discharge is feeling better. Reports he has had a lot of stress and he thinks that may have contributed to this and was tearful but overall more comfortable and tolerating p.o. and would like to be discharged. Discharge instructions as followed: DISCHARGE INSTRUCTIONS PLEASE READ *Please take this with you to your next doctors appointment* -You will be discharged on long-acting insulin with 12 units daily. Prescription will be sent in for your insulin and you will be given a pr escription for your testing supplies. Is recommended to check your glucose in the morning and keep a log of this. If your glucose is less than 70 please hold your insulin dose and discuss with your physician. If your glucose is consistently over 250 before you see your primary care physician would also recommend contacting them as you may need adjustments to your insulin sooner. You may have oral agents added in the future or sliding scale insulin added by your primary care physician however at this time we will continue the insulin glargine 12 units subcutaneously daily that you are taking in the hospital -You ultimately will need to establish with an eye doctor and a foot doctor, you can be referred through primary care physician's office on an outpatient basis -It will be important to check your feet regularly for any new wounds or calluses -You will also be discharged on a blood pressure medicine, amlodipine, which you will take daily due to your persistently elevated blood pressure -Would recommend lab work (BMP) to check your potassium and kidney function in 2 to 3 days through your primary care physician's office. Please call their office upon discharge to obtain order for lab work. -You will need to follow-up with Dr. Olsen with GI in his office upon discharge. Please call his office to schedule your hospital follow-up appointment (ph. [phone]) -You will be discharged on Protonix 40 mg twice daily which she will need to take for 8 weeks after which time you may decrease this to once daily but that will ultimately be at the discretion of your outpatient provider. As well as sucralfate/Carafate 1 g orally to take 1 hour before meals and at bedtime for 8 weeks -Please avoid any ibuprofen or NSAIDs moving forward as these can worsen the inflammation in your stomach and duodenum -Please call your primary care provider's office upon discharge to schedule a hospital follow up within 1 week. -For any concerning signs or symptoms please call 911 or proceed to the nearest emergency department Physical Exam Narrative General: Alert, oriented, appears to be feeling better HEENT: Atraumatic, normocephalic Eyes: Anicteric, normal conjunctiva, extraocular movements grossly intact Neck: Supple Respiratory: Clear to auscultation bilaterally, normal respiratory effort Cardiovascular: Regular rate and rhythm GI: Soft, nondistended, no rebound, guarding, rigidity, has some tenderness but improved from previous Extremities: No edema Musculoskeletal: Moving all extremities Neuro: No overt focal neurological deficits Skin: No rashes appreciated Psych: Cooperative, was slightly tearful talking to his mom passing Weight / BMI Weight Weight: 121.6 kg Body Mass Index (BMI) 37.3 ABG / Lab / Microbiology Data 12/14/22 05:45 12/14/22 05:45 Laboratory: Laboratory Results - last 24 hr 12/13/22 16:22: POC Glucose 195 H 12/13/22 22:14: POC Glucose 191 H 12/14/22 05:45: WBC 7.2, RBC 4.89, Hgb 15.5, Hct 42.6, MCV 87.1, MCH 31.7, MCHC 36.4 H, RDW Std Deviation 36.7, RDW Coeff of Billy 11.5 L, Plt Count 177, MPV 10.8, Immature Gran % (Auto) 0.600, Neut % (Auto) 63.8, Lymph % (Auto) 24.2, [place] % (Auto) 10.8 H, Eos % (Auto) 0.3, Baso % (Auto) 0.3, Absolute Neuts (auto) 4.6, Absolute Lymphs (auto) 1.75, Nucleated RBC % 0, Sodium 136, Potassium 3.2 L , Chloride 104, Carbon Dioxide 23.0, Anion Gap 9, BUN 14, Creatinine 0.91, Estim Creat Clear Calc 90.79, Est GFR (MDRD) Af Amer 109, Est GFR (MDRD) Non-Af 90, BUN/Creatinine Ratio 15.4, Glucose 200 H, Calcium 8.7, Total Bilirubin 1.20 H, AST 17, ALT 20, Alkaline Phosphatase 38 L, Total Protein 6.1 L, Albumin 3.2, Globulin 2.9, Albumin/Globulin Ratio 1.1 12/14/22 06:12: POC Glucose 198 H 12/14/22 11:28: POC Glucose 225 H Microbiology: Microbiology 12/09/22 14:40 Stool Enteric Bacteriology - Final 12/09/22 14:40 Stool C. difficile DNA Amplification - Final D/C Instructions Discharge Diet: Light diet - advance as tolerated Meaningful Use Info Meaningful Use Diagnoses (Choose all that apply): None applicable Discharge Plan Admission Admit Date/Time: 12/10/22 15:07 Primary Reason for Your Visit: Nausea, vomiting Attending Provider: Mariela Narvaez Primary Care Provider: Evans Napier Consulting Providers: Kate Carrion Instructions Patient Instructions: Controlling High Blood Pressure, Diabetes Food Shop Meals Prep, Diabetes Exercise Starting, Injection Pens Dc, Diabetes: Meal Planning, Blood Sugar Check Steps, Insulin and Type 2 Diabetes, ED Gastritis (Adult), ED Using an Injection Pen, Diabetes and High Blood Pressure Additional Instructions / Restrictions: DISCHARGE INSTRUCTIONS PLEASE READ *Please take this with you to your next doctors appointment* -You will be discharged on long-acting insulin with 12 units daily. Prescripti on will be sent in for your insulin and you will be given a prescription for your testing supplies. Is recommended to check your glucose in the morning and keep a log of this. If your glucose is less than 70 please hold your insulin dose and discuss with your physician. If your glucose is consistently over 250 before you see your primary care physician would also recommend contacting them as you may need adjustments to your insulin sooner. You may have oral agents added in the future or sliding scale insulin added by your primary care physician however at this time we will continue the insulin glargine 12 units subcutaneously daily that you are taking in the hospital -You ultimately will need to establish with an eye doctor and a foot doctor, you can be referred through primary care physician's office on an outpatient basis -It will be important to check your feet regularly for any new wounds or calluses -You will also be discharged on a blood pressure medicine, amlodipine, which you will take daily due to your persistently elevated blood pressure -Would recommend lab work (BMP) to check your potassium and kidney function in 2 to 3 days through your primary care physician's office. Please call their office upon discharge to obtain order for lab work. -You will need to follow-up with Dr. Olsen with GI in his office upon discharge. Please call his office to schedule your hospital follow-up appointment (ph. [phone]) -You will be discharged on Protonix 40 mg twice daily which she will need to take for 8 weeks after which time you may decrease this to once daily but that will ultimately be at the discretion of your outpatient provider. As well as sucralfate/Carafate 1 g orally to take 1 hour before meals and at bedtime for 8 weeks -Please avoid any ibuprofen or NSAIDs moving forward as these can worsen the inflammation in your stomach and duodenum -Please call your primary care provider's office upon discharge to schedule a hospital follow up within 1 week. -For any concerning signs or symptoms please call 911 or proceed to the nearest emergency department Discharge Orders/Prescriptions Prescriptions: New amlodipine 10 mg Tablet 10 mg PO DAILY 30 Days Qty: 30 0RF insulin glargine-yfgn 100 unit/mL (3 mL) Insulin Pen 12 unit subcut DAILY Qty: 15 0RF sucralfate 1 gram Tablet 1 g PO ACHS 30 Days Qty: 120 0RF pantoprazole [Protonix] 40 mg tablet,delayed release (DR/EC) 40 mg PO BID 30 Days Qty: 60 1RF Continued ondansetron 4 MG tablet 4 mg PO Q8H PRN PRN (Reason: Nausea) 5 Days Qty: 10 0RF Discontinued metformin 500 MG tablet 500 mg PO BIDCM Patient Comments: Diabetes pantoprazole 40 MG tablet 40 mg PO DAILY promethazine 25 MG tablet 25 mg PO Q6H PRN PRN (Reason: Nausea) Qty: 10 0RF dicyclomine 10 MG capsule 20 mg PO TIDAC Qty: 20 0RF magnesium citrate 300 ML solution 300 ml PO X1 Qty: 300 0RF Rx Instructions: azithromycin [Zithromax] 500 MG tablet 500 mg PO DAILY Qty: 3 0RF Referrals / Follow Up: Evans Napier DO [Primary Care Provider] - Within 1 Week Jt Olsen DO [Med Staff - Active Staff] - ( -You will need to follow-up with Dr. Olsen with GI in his office upon discharge. Please call his office to schedule your hospital follow-up appointment (ph. [phone])) Disposition Disposition (needs filled in before D/C Order can be placed): Home, Self Care Charges/Coding Visit Charges Inpatient E&M: 13616 Disch Hosp >30min
--- NOTE | 2022-12-14 15:17 | CASEMGMT ---
RN CM into pt room, pt provided with a BGM rx. Pt aware where he can get this and that [facility] will not be able to fill this. Pt states he knows how to check his blood sugars. Pt denies any need for education with insulin or any homegoing needs.
== END 2022-12-14 16:23 | disposition home or self-care (01) | DRG 384 ==
LOC: ED 21:53 → MS3 22:11
PROVIDERS: Anesthesiology; Internal Medicine Gastroenterology; Nurse Practitioner; Admitting Provider Family Medicine; Emergency Provider Emergency Medicine; PCP Family Medicine; Referring Provider Family Medicine; Visit Provider Internal Medicine
PROC: 0DJD8ZZ Inspection of Lower Intestinal Tract, Via Natural or Artificial Opening Endoscopic (ICD-10-PCS; CPT 45378; principal; 2022-12-13 12:40)
DX: K26.9 Duodenal ulcer, unspecified as acute or chronic, without hemorrhage or perforation (principal); E87.21 Acute metabolic acidosis; E11.42 Type 2 diabetes mellitus with diabetic polyneuropathy; E11.65 Type 2 diabetes mellitus with hyperglycemia; Z79.4 Long term (current) use of insulin; K29.00 Acute gastritis without bleeding; I10 Essential (primary) hypertension; G47.33 Obstructive sleep apnea (adult) (pediatric); E87.6 Hypokalemia; K21.00 Gastro-esophageal reflux disease with esophagitis, without bleeding; K44.9 Diaphragmatic hernia without obstruction or gangrene; K57.30 Diverticulosis of large intestine without perforation or abscess without bleeding; D12.3 Benign neoplasm of transverse colon; E66.9 Obesity, unspecified; Z68.37 Body mass index [BMI] 37.0-37.9, adult; Z90.49 Acquired absence of other specified parts of digestive tract; Z79.84 Long term (current) use of oral hypoglycemic drugs; Z79.899 Other long term (current) drug therapy; Z87.891 Personal history of nicotine dependence
CPT/HCPCS: 36415; 74177; 80048; 80053; 81001; 82436; 82570; 82962; 83036; 83605; 83690; 83935; 84133; 84145; 84300; 84484; 84540; 85025; 85652; 86140; 87177; 87209; 87493; 87506; 88305; 88342; 93005; 94668; 97802; 97803; 99252; 99283; J7030; Q9967; A4216; G0463; J2405

== ENCOUNTER → 2022-12-19 | Outpatient (CLI) | payer OTHER, SELFPAY ==
[2022-12-19 13:10] LABS: Potassium 3.6 mmol/L (3.5-5.1)
== END | disposition home or self-care (01) ==
LOC: BFHLAB 11:07
PROVIDERS: PCP Family Medicine; Referring Provider Family Medicine; Visit Provider Family Medicine
DX: E87.6 Hypokalemia (principal)
CPT/HCPCS: 36415; 84132

== ENCOUNTER 2023-03-07 15:04 | Emergency (ER) | payer OTHER, SELFPAY ==
[2023-03-07 15:06] VITALS: BP 176/112; PULSE 97; RESP 22; TEMP 35.5; O2SAT 97; BMI 38.1
[2023-03-07 15:56] LABS: Absolute Lymphocyte Count 1.95 X10^3/uL (0.83-4.51); Absolute Neutrophil Count 5.5 X10^3/uL (2.0-7.7); Basophil# 0.05 X10^3/uL; Basophil% 0.6 % (0-1); Eosinophil# 0.03 X10^3/uL; Eosinophils% 0.4 % (0-5); Hematocrit 46.3 % (40-54); Lymphocyte # 1.95 X10^3/ul (0.83-4.51); Lymphocyte % 24.1 % (19-41); Mean Corp Hgb Conc 34.6 g/dL (32-36); Mean Corpuscular Hgb 31.1 pg (27.0-32.0); Mean Corpuscular Volume 89.9 fL (80-94); Mean Platelet Vol. 10.1 fl (6.2-12.0); Monocyte# 0.55 X10^3/uL; Monocyte% 6.8 % (0-10); NRBC Flagged by Analyzer 0 % (0-5); Neutrophil # 5.48 X10^3/uL (2.7-7.7); Neutrophil % 67.6 % (47-70); Platelet Count 248 K/mm3 (150-450); RBC Distribution Width CV 11.9 % (11.6-14.6); RBC Distribution Width SD 38.7 fl (35.1-43.9); Red Blood Count 5.15 M/mm3 (4.6-6.2); White Blood Count 8.1 K/mm3 (4.4-11.0)
[2023-03-07 16:14] LABS: ALB/GLOB Ratio 1.1 RATIO (0.9-2.4); AST(SGOT) 16 U/L (15-37); Alanine Aminotransfer ALT/SGPT 26 U/L (16-61); Albumin, Serum 4.1 g/dL (3.2-5.0); Alkaline Phosphatase 52 U/L (45-117); Anion Gap 6 (5-15); BUN 19 mg/dL (7-18); BUN/Creat Ratio 16.8 RATIO (10-20); Chloride 105 mmol/L (98-107); Creatinine, Serum 1.13 mg/dL (0.70-1.30); EST Glomerular Filtration Rate 70 mL/min (>60); Est Glom Filt Rate - Afr Amer 85 mL/min (>60); Estimated Creatinine Clearance 73.12 ml/min; Globulin 3.9 g/dL (2.2-4.2); Glucose 125 mg/dL (74-106); Potassium 3.9 mmol/L (3.5-5.1); Sodium Level 137 mmol/L (136-145)
[2023-03-07] MEDS: 0.9% Normal Saline (1000mL) 1,000 ML 999 ML IV (17:02)
[2023-03-07] MEDS: Ondansetron 4 MG/2 ML Vial IV (17:03)
[2023-03-07] MEDS: proMETHazine 25 MG/ML Syringe 12.5 MG IM (17:03)
--- NOTE | 2023-03-07 18:30 | EDS_ITS ---
HPI HPI - GI History of Present Illness Chief Complaint: Nausea/Vomiting Narrative Narrative: 62-year-old male with history of abdominal pain, gastroenteritis, duodenal ulcers, recent diagnosis of COVID-19 about 5 days ago. He is presenting today with nausea and vomiting. He still has his previous abdominal pain which is lower in the abdomen. Unchanged. No fevers or chills currently. Patient is a started to feel better yesterday but today is having more nausea and vomiting. Recently seen for similar. He has not follow-up with his PCP. He does not have any antiemetics at home. He states he still has some Carafate but he could not take it today because he does not have any nausea medicine. [facility] Medical History Former tobacco use GERD (gastroesophageal reflux disease) Hypertension Obesity JUANA (obstructive sleep apnea) Type 2 diabetes mellitus Home Medications ondansetron 4 mg disintegrating tablet 4 mg PO Q8H PRN PRN Nausea 5 days #10 tabs 12/09/22 [Rx Last Taken Unknown] amlodipine 10 mg tablet 10 mg PO DAILY 30 days #30 tabs 12/14/22 [Rx Last Taken Unknown] insulin glargine-yfgn 100 unit/mL (3 mL) subcutaneous pen 12 unit (0.12 mL) subcut DAILY #15 mL 12/14/22 [Rx Last Taken Unknown] pantoprazole 40 mg tablet,delayed release (Protonix) 40 mg PO BID 30 days #60 tabs 12/14/22 [Rx Last Taken Unknown] sucralfate 1 gram tablet 1 g PO ACHS 30 days #120 tabs 12/14/22 [Rx Last Taken Unknown] ondansetron 4 mg disintegrating tablet 4 mg PO Q8H PRN PRN Nausea #14 tabs 03/07/23 [Rx Last Taken Unknown] promethazine 25 mg tablet 25 mg PO TID PRN nausea and vomiting #14 tabs 03/07/23 [Rx Last Taken Unknown] sucralfate 1 gram tablet (Carafate) 1 g PO BID #30 tabs 03/07/23 [Rx Last Taken Unknown] Allergy/AdvReac Type Severity Reaction Status Date / Time No Known Allergies Allergy Verified 03/07/23 15:05 Family History Mother Diabetes Heart disease Cancer Father No problems noted. Surgical History History of cholecystectomy History of surgery on lower extremity Social History household members: other details: Notes his son lives with him. Smoking Status: Former smoker alcohol intake: never substance use type: does not use ROS ROS ED Constitutional Constitutional ED: Denies chills, fever(s) or sweats Eyes Eyes: Denies blurry vision or change in vision ENT ENT ED: Denies ear pain or sore throat Cardiovascular Cardiovascular: Denies chest pain, palpitations or racing heartbeat Respiratory/Chest Respiratory/Chest: Denies cough, dyspnea or sputum Gastrointestinal Gastrointestinal: Reports abdominal pain, nausea and vomiting; Denies constipation or diarrhea Genitourinary Genitourinary ED: Denies dysuria, hematuria or urinary frequency Musculoskeletal Musculoskeletal: Denies arthralgias, myalgias or neck pain Integumentary Denies abscess, Abrasions or rash Neurologic Neurologic: Denies headache(s), paresthesias or weakness Psychiatric Psychiatric: Denies anxiety, depression, suicidal ideation or suicidal thoughts Endocrine Endocrinology: Denies polydipsia or polyuria EXAM Physical Exam Const Vital Signs: 03/07/23 15:06 Temperature 96 F L Temperature Source Temporal Pulse Rate 97 Respiratory Rate 22 H Blood Pressure 176/112 H Blood Pressure Mean 133 Pulse Ox 97 Oxygen Delivery Method Room Air Positive well nourished General Appearance ED: NAD HEENT Reports moist mucous membranes normocephalic and atraumatic Resp normal respiratory effort and clear to auscultation bilaterally Auscultation: Negative for rales, rhonchi or wheezes Cardio regular rate and regular rhythm GI non-distended and no masses GI Narrative: 9 abdomen. Neuro CN's II-XII intact bilaterally Sensorium / Orientation: alert Motor Exam: strength 5/5 throughout Psych mental status grossly normal Skin no wounds MDM MDM MDM Narrative Medical decision making narrative: Presenting with nausea and vomiting. He recently was diagnosed with COVID and he started to feel better yesterday but now is worse today. No fevers or chills. No black or bloody stools or emesis. Medicated with Phenergan and Zofran. He was given normal saline. CBC to assess white blood cell count, hemoglobin, platelets. CMP to assess liver function, renal function, electrolytes. These were all within normal limits. This represent viral syndrome status post having COVID. He feels improved and I will give him Phenergan and Zofran alternate at home for nausea and vomiting. He is also given a refill for his Carafate. Disposition home in stable condition. Impression: 1. History of COVID-19 2. Nausea/vomiting Lab Data Labs: Laboratory Results - last 24 hr 03/07/23 15:40 WBC 8.1 RBC 5.15 Hgb 16.0 Hct 46.3 MCV 89.9 MCH 31.1 MCHC 34.6 RDW Std Deviation 38.7 RDW Coeff of Billy 11.9 Plt Count 248 MPV 10.1 Immature Gran % (Auto) 0.500 Neut % (Auto) 67.6 Lymph % (Auto) 24.1 [place] % (Auto) 6.8 Eos % (Auto) 0.4 Baso % (Auto) 0.6 Absolute Neuts (auto) 5.5 Absolute Lymphs (auto) 1.95 Nucleated RBC % 0 Sodium 137 Potassium 3.9 Chloride 105 Carbon Dioxide 26.0 Anion Gap 6 BUN 19 H Creatinine 1.13 Estim Creat Clear Calc 73.12 Est GFR (MDRD) Af Amer 85 Est GFR (MDRD) Non-Af 70 BUN/Creatinine Ratio 16.8 Glucose 125 H Calcium 10.0 Total Bilirubin 0.90 AST 16 ALT 26 Alkaline Phosphatase 52 Total Protein 8.0 Albumin 4.1 Globulin 3.9 Albumin/Globulin Ratio 1.1 Discharge Plan Triage Chief Complaint: Nausea/Vomiting ED Provider: Lam Yo Dx/Rx/DC Orders Instructions: Coronavirus Disease 2019 (COVID-19): Caring for Yourself or Others Prescriptions: New ondansetron 4 mg tablet,disintegrating 4 mg PO Q8H PRN PRN (Reason: Nausea) Qty: 14 0RF promethazine 25 mg tablet 25 mg PO TID PRN (Reason: nausea and vomiting) Qty: 14 0RF sucralfate [Carafate] 1 gram tablet 1 g PO BID Qty: 30 0RF No Action ondansetron 4 MG tablet 4 mg PO Q8H PRN PRN (Reason: Nausea) 5 Days Qty: 10 0RF amlodipine 10 mg Tablet 10 mg PO DAILY 30 Days Qty: 30 0RF insulin glargine-yfgn 100 unit/mL (3 mL) Insulin Pen 12 unit subcut DAILY Qty: 15 0RF sucralfate 1 gram Tablet 1 g PO ACHS 30 Days Qty: 120 0RF pantoprazole [Protonix] 40 mg tablet,delayed release (DR/EC) 40 mg PO BID 30 Days Qty: 60 1RF Stand Alone Forms: ED Work / School Excuse Primary Care Provider: Evans Napier Referrals: Evans Napier DO [Primary Care Provider] - Disposition Disposition: Home, Self Care Discharge Date/Time: 03/07/23 17:48
== END 2023-03-07 17:48 | disposition home or self-care (01) ==
PROVIDERS: Emergency Provider Student in an Organized Health Care Education/Training Program; PCP Family Medicine; Visit Provider Student in an Organized Health Care Education/Training Program
DX: U07.1 COVID-19 (principal); R11.2 Nausea with vomiting, unspecified; G47.33 Obstructive sleep apnea (adult) (pediatric); Z87.891 Personal history of nicotine dependence
CPT/HCPCS: 80053; 85025; 96372; 96374; 99282; J7030; A4216; J2405

== ENCOUNTER 2023-03-11 15:07 | Inpatient (IN) | payer OTHER, SELFPAY ==
[2023-03-11] VITALS (9 sets, daily range): BP systolic 101–210; BP diastolic 72–119; PULSE 56–109; RESP 12–27; TEMP 36.1–36.9; O2SAT 91–97; BMI 37.8
--- NOTE | 2023-03-11 16:56 | EX.ED.DYSGE1 ---
HPI History of Present Illness Chief Complaint: General Illness Informant: patient Onset/Context/Timing Onset: Weeks (2) Context: Gradual Onset Timing: Continuous Quality: Sharp Location: Right side of abdomen and right low back. Worsened by: Nothing Relieved by: Stretching, massage, hot shower Narrative Narrative: Patient presents with not feeling good for the past 2 weeks. Patient states he was recently diagnosed with COVID-19 approximately a week and a half ago. Patient states that he still does not feel any better. Patient states that he has sharp pain over the right side of his abdomen and right lumbar area. Patient states it is better with stretching, massage, and hot shower. Patient states nothing makes it worse. Patient admits to decreased appetite. Patient states he is able to drink but has not been eating anything. Patient admits to a cough. Patient denies any fevers or chills. Admits to some nausea, vomiting, and diarrhea. [facility] Medical History Former tobacco use GERD (gastroesophageal reflux disease) Hypertension Obesity JUANA (obstructive sleep apnea) Type 2 diabetes mellitus Home Medications pantoprazole 40 mg tablet,delayed release (Protonix) 40 mg PO BID 30 days #60 tabs 12/14/22 [Rx Last Taken Unknown] ondansetron 4 mg disintegrating tablet 4 mg PO Q8H PRN PRN Nausea #14 tabs 03/07/23 [Rx Last Taken Unknown] promethazine 25 mg tablet 25 mg PO TID PRN nausea and vomiting #14 tabs 03/07/23 [Rx Last Taken Unknown] sucralfate 1 gram tablet (Carafate) 1 g PO BID #30 tabs 03/07/23 [Rx Last Taken Unknown] insulin glargine-yfgn 100 unit/mL (3 mL) subcutaneous pen See Rx Instructions subcut DAILY 03/11/23 [History Last Taken Unknown] metformin 500 mg tablet 500 mg PO BID 03/11/23 [History Last Taken Unknown] Allergy/AdvReac Type Severity Reaction Status Date / Time No Known Allergies Allergy Verified 03/11/23 15:07 Family History Mother Diabetes Heart disease Cancer Father No problems noted. Surgical History History of cholecystectomy History of surgery on lower extremity Social History household members: other details: Notes his son lives with him. Smoking Status: Former smoker alcohol intake: never substance use type: does not use ROS ROS ED Constitutional Constitutional ED: Denies chills or fever(s) Eyes Eyes: Denies blurry vision or change in vision ENT ENT ED: Denies rhinorrhea or sore throat Cardiovascular Cardiovascular: Denies chest pain or palpitations Respiratory/Chest Respiratory/Chest: Reports cough; Denies dyspnea Gastrointestinal Gastrointestinal: Reports diarrhea, nausea and vomiting Genitourinary Genitourinary ED: Denies dysuria or hematuria Musculoskeletal Musculoskeletal: Reports back pain; Denies neck pain Integumentary Denies abscess or rash Neurologic Neurologic: Denies headache(s) or weakness Allergic/Immunologic Allergic/Immunologic ED: Denies mouth swelling or urticaria EXAM Physical Exam Const Vital Signs: 03/11/23 15:08 03/11/23 16:28 03/11/23 16:28 Temperature 97.0 F L Temperature Source Temporal Pulse Rate 56 L 101 H Respiratory Rate 18 12 Respiratory Effort Normal Non-Labored Respiratory Pattern Normal Blood Pressure 183/91 H 183/92 H Blood Pressure Mean 121 122 Pulse Ox 97 Oxygen Delivery Method Room Air 03/11/23 17:24 03/11/23 17:58 03/11/23 19:00 Temperature Temperature Source Pulse Rate 102 H 108 H 108 H Respiratory Rate 13 13 Respiratory Effort Respiratory Pattern Blood Pressure 193/95 H 189/104 H 210/119 H Blood Pressure Mean 127 132 149 Pulse Ox Oxygen Delivery Method 03/11/23 19:30 03/11/23 21:00 03/11/23 21:30 Temperature Temperature Source Pulse Rate 109 H 96 96 Respiratory Rate 19 H 27 H 19 H Respiratory Effort Respiratory Pattern Blood Pressure 210/112 H 166/91 H 147/96 H Blood Pressure Mean 138 113 110 Pulse Ox Oxygen Delivery Method Positive well nourished and well developed General Appearance ED: well developed and NAD HEENT Reports moist mucous membranes Neck supple and no JVD Resp normal respiratory effort and clear to auscultation bilaterally Cardio regular rate, regular rhythm and no murmurs GI normal to inspection, nondistended, normoactive bowel sounds Palpation: soft and tender RLQ and RUQ; Negative for guarding or rebound tenderness present Extremity normal to inspection General Extremety ED: Negative for edema or tenderness General Extremity: Negative for edema Neuro oriented x3, CN's II-XII intact bilaterally and no sensory deficits noted Sensorium / Orientation: alert Motor Exam: strength 5/5 throughout Psych mental status grossly normal Skin no rashes or lesions noted MDM MDM MDM Narrative Medical decision making narrative: Differential diagnosis includes COVID-19, pneumonia, cardiac dysrhythmia, cardiac ischemia, dehydration, electrolyte abnormality, pulmonary embolism, pyelonephritis, urinary tract infection, ureteral calculus, colitis, and gastroenteritis. Patient EKG will be obtained to assess for cardiac dysrhythmia and cardiac ischemia. Chest x-ray will be obtained to assess for pneumonia. CBC will be obtained to assess for leukocytosis and anemia. Basic metabolic profile will be obtained to assess for electrolyte abnormality and renal function. D-dimer will be obtained to assess for pulmonary embolism. CT scan of the abdomen and pelvis will be obtained to assess for colitis, bowel obstruction, perforation, and free fluid. History & Record Review Additional record(s) reviewed:: Prior labs Lab Data Attestation: I reviewed the patient's lab results. Lab results narrative: CBC was reviewed and was within normal limits. Comprehensive metabolic profile was reviewed. BUN was 31 and creatinine was 2.57. These are increased from previous results. Serum lactate was reviewed and was normal. D-dimer was reviewed and was elevated at 0.87. Lipase was reviewed and was slightly elevated at 116. Urinalysis was reviewed. There is no evidence of urinary tract infection or hematuria. Labs: Laboratory Results - last 24 hr 03/11/23 03/11/23 03/11/23 16:30 17:20 19:45 WBC 9.4 RBC 5.18 Hgb 16.5 Hct 46.4 MCV 89.6 MCH 31.9 MCHC 35.6 RDW Std Deviation 38.8 RDW Coeff of Billy 11.9 Plt Count 228 MPV 10.2 Immature Gran % (Auto) 0.400 Neut % (Auto) 71.0 H Lymph % (Auto) 20.1 [place] % (Auto) 7.9 Eos % (Auto) 0.2 Baso % (Auto) 0.4 Absolute Neuts (auto) 6.7 Absolute Lymphs (auto) 1.89 Nucleated RBC % 0 D-Dimer Quant (PE/DVT) 0.87 H* Sodium 136 Potassium 3.5 Chloride 99 Carbon Dioxide 28.0 Anion Gap 9 BUN 31 H Creatinine 2.57 H Estim Creat Clear Calc 32.15 Est GFR (MDRD) Af Amer 33 L Est GFR (MDRD) Non-Af 27 L BUN/Creatinine Ratio 12.1 Glucose 70 L Lactic Acid 1.1 Calcium 9.8 Total Bilirubin 0.90 AST 18 ALT 28 Alkaline Phosphatase 50 Total Protein 7.9 Albumin 4.3 Globulin 3.6 Albumin/Globulin Ratio 1.2 Lipase 116 H Urine Color Yellow Urine Clarity Sl. Cloudy Urine pH 5.0 Ur Specific [place] 1.025 Urine Protein 100 H Urine Glucose (UA) Normal Urine Ketones 50 H Urine Occult Blood 10 H Urine Nitrite Negative Urine Bilirubin 1 H Urine Urobilinogen Normal Ur Leukocyte Esterase Negative Urine RBC 0-5 SEEN Urine WBC 0 SEEN Ur Squamous Epith Cells 0-5 SEEN Amorphous Sediment 1+ URATE Urine Bacteria 0 SEEN Urine Mucus 0 SEEN Radiography Diagnostic Testing: Clinical Impression(s) from Imaging Studies Abdomen/Pelvis CT 03/11/23 17:05 IMPRESSION: Findings consistent with nonspecific colitis. No evidence for small bowel obstruction or acute appendicitis Other findings as above Electronically Signed: Miguelito Ramirez MD at 20:30 EDT , Chest CTA 03/11/23 18:38 IMPRESSION: ASHD. No acute cardiopulmonary pathology. No evidence for pulmonary embolus. Electronically Signed: Miguelito Ramirez MD at 20:22 EDT , CT scan of the abdomen and pelvis was obtained. There are findings for nonspecific colitis. There is no evidence of obstruction or appendicitis. There is no free air or free fluid. This was interpreted by the radiologist and was also independently reviewed by myself. Because of the elevated D-dimer, CTA of the chest was obtained. There is no evidence of pulmonary embolism or aortic dissection. This was interpreted by the radiologist and was also independently reviewed by myself. EKG Initial EKG: Attestation: I personally reviewed and interpreted this EKG as follows: Interpretation: Sinus Tachycardia (102) Comments: EKG was obtained. On my independent interpretation, it showed a sinus tachycardia with a rate of 102. MA interval, QRS interval, and QTc intervals were all normal. There is left axis deviation at -33. There is left ventricular hypertrophy with nonspecific ST-T wave changes. Prior EKG tracings: available for review Prior: Unchanged (12/13/2022) Management Discussion w/another healthcare provider: Hospitalist Treatment and Re-Evaluation :: Patient was given IV fluids. Patient was given a dose of morphine and Zofran initially. Patient was unable to tolerate p.o. contrast with Zofran. Patient was given a dose of Reglan. Patient was given Cipro and Flagyl here. Patient given a dose of labetalol for his blood pressure. Patient was advised of his findings. Patient was advised of the need for admission to the hospital. Patient is agreeable with this. Case was discussed with the hospitalist. He will admit the patient to his service. Patient understood and was agreeable with the plan. All questions were answered. Discharge Plan Triage Chief Complaint: General Illness ED Provider: Wily Maldonado Dx/Rx/DC Orders Clinical Impression: Acute kidney injury, Diabetes mellitus, Colitis Prescriptions: No Action pantoprazole [Protonix] 40 mg tablet,delayed release (DR/EC) 40 mg PO BID 30 Days Qty: 60 1RF metformin 500 mg tablet 500 mg PO BID Patient Comments: take 1 tablet by mouth twice a day insulin glargine-yfgn 100 unit/mL (3 mL) Insulin Pen See Rx Instructions subcut DAILY Rx Instructions: subcutaneously daily; sliding scale based on bg test result ondansetron 4 mg tablet,disintegrating 4 mg PO Q8H PRN PRN (Reason: Nausea) Qty: 14 0RF promethazine 25 mg tablet 25 mg PO TID PRN (Reason: nausea and vomiting) Qty: 14 0RF sucralfate [Carafate] 1 gram tablet 1 g PO BID Qty: 30 0RF Primary Care Provider: Evans Napier Referrals: Evans Napier DO [Primary Care Provider] - Disposition Disposition: [facility]
--- NOTE | 2023-03-11 17:05 | EKG12_ITS ---
Test Reason : Blood Pressure : / mmHG Vent. Rate : 102 BPM Atrial Rate : 102 BPM P-R Int : 170 ms QRS Dur : 098 ms QT Int : 358 ms P-R-T Axes : 043 -33 080 degrees QTc Int : 466 ms Sinus tachycardia Left axis deviation Moderate voltage criteria for LVH, may be normal variant ( R in aVL , Kevin product ) Abnormal ECG Confirmed by TREVA LYNN, MARIA DEL ROSARIO ([id number]), mapping editor SD GARCIA ([id number]) on 03/15/2023 2:26:07 PM Referred By: Confirmed By:MARIA DEL ROSARIO TILLEY MD
--- NOTE | 2023-03-11 17:05 | CT_ITS ---
STUDY: CT ABDOMEN AND PELVIS WITH CONTRAST REASON FOR EXAM: Male, 62 years old. Abdominal pain -- IV PO Contrast RADIATION DOSAGE (If Supplied By Facility): CTDIvol = ( 32.38 ) mGy, DLP = ( 752.31 ) mGycm TECHNIQUE: Transaxial images were obtained from the dome of the diaphragm to the symphysis pubis without oral contrast. IV 100mL Isovue-370 was administered. Sagittal and coronal images were reconstructed. Individualized dose optimization techniques were used for this CT. COMPARISON: December 10, 2022 FINDINGS: The visualized lung bases are unremarkable. The visualized portions of the heart are within normal limits. Mild fatty infiltrated liver without mass or bile duct dilatation.. Status post cholecystectomy. Normal spleen. Normal pancreas. Normal bilateral adrenal glands. Normal right kidney. Tiny nonobstructing left renal calculus. No evidence for renal obstruction or mass. Normal visualized stomach. Normal small intestine. There is diffusely ahaustral appearance to the colon consistent with nonspecific inflammatory bowel disease.. No evidence for acute appendicitis. Minor atherosclerotic change of the aorta without an intrauterine. Normal inferior vena cava. Normal retroperitoneum. Normal urinary bladder. Normal abdominal wall. Lumbar spine demonstrates degenerative changes CT/Abdomen/Pelvis WITH Contrast IMPRESSION: Findings consistent with nonspecific colitis. No evidence for small bowel obstruction or acute appendicitis Other findings as above Electronically Signed: Miguelito Ramirez MD at 20:30 EDT ,
[2023-03-11] MEDS: Morphine 4 MG/ML Syringe IV (17:12)
[2023-03-11] MEDS: Ondansetron 4 MG/2 ML Vial IV (17:12)
[2023-03-11] MEDS: 0.9% Normal Saline (1000mL) 1,000 ML 1000 ML IV ×2 (17:13→21:58)
[2023-03-11 17:22] LABS: Absolute Lymphocyte Count 1.89 X10^3/uL (0.83-4.51); Absolute Neutrophil Count 6.7 X10^3/uL (2.0-7.7); Basophil# 0.04 X10^3/uL; Basophil% 0.4 % (0-1); Eosinophil# 0.02 X10^3/uL; Eosinophils% 0.2 % (0-5); Hematocrit 46.4 % (40-54); Hemoglobin 16.5 g/dL (13.0-16.5); Lymphocyte # 1.89 X10^3/ul (0.83-4.51); Lymphocyte % 20.1 % (19-41); Mean Corp Hgb Conc 35.6 g/dL (32-36); Mean Corpuscular Hgb 31.9 pg (27.0-32.0); Mean Corpuscular Volume 89.6 fL (80-94); Mean Platelet Vol. 10.2 fl (6.2-12.0); Monocyte# 0.74 X10^3/uL; Monocyte% 7.9 % (0-10); NRBC Flagged by Analyzer 0 % (0-5); Neutrophil # 6.69 X10^3/uL (2.7-7.7); Platelet Count 228 K/mm3 (150-450); RBC Distribution Width CV 11.9 % (11.6-14.6); RBC Distribution Width SD 38.8 fl (35.1-43.9); Red Blood Count 5.18 M/mm3 (4.6-6.2); White Blood Count 9.4 K/mm3 (4.4-11.0)
[2023-03-11 17:38] LABS: ALB/GLOB Ratio 1.2 RATIO (0.9-2.4); AST(SGOT) 18 U/L (15-37); Alanine Aminotransfer ALT/SGPT 28 U/L (16-61); Albumin, Serum 4.3 g/dL (3.2-5.0); Alkaline Phosphatase 50 U/L (45-117); Anion Gap 9 (5-15); BUN 31 mg/dL (7-18); BUN/Creat Ratio 12.1 RATIO (10-20); Calcium,Total 9.8 mg/dL (8.5-10.1); Chloride 99 mmol/L (98-107); Creatinine, Serum 2.57 mg/dL (0.70-1.30); EST Glomerular Filtration Rate 27 mL/min (>60); Est Glom Filt Rate - Afr Amer 33 mL/min (>60); Estimated Creatinine Clearance 32.15 ml/min; Globulin 3.6 g/dL (2.2-4.2); Glucose 70 mg/dL (74-106); Lipase 116 U/L (13-75); Potassium 3.5 mmol/L (3.5-5.1); Protein, Total 7.9 g/dL (6.4-8.2); Sodium Level 136 mmol/L (136-145)
[2023-03-11] MEDS: Metoclopramide 10 MG/2 ML Vial IV (17:57)
[2023-03-11 18:04] LABS: Lactic Acid 1.1 mmol/L (0.4-1.9)
[2023-03-11 18:21] LABS: D-Dimer Quantitative (DVT/PE) 0.87 FEU/ug/m (0.27-0.49)
--- NOTE | 2023-03-11 18:22 | ED.RN ---
elevated d dimer. dr gupta
--- NOTE | 2023-03-11 18:38 | CT_ITS ---
STUDY: CTA CHEST REASON FOR EXAM: Male, 62 years old. Elevated D-dimer RADIATION DOSAGE (If Supplied By Facility): CTDIvol = ( 47.05 ) mGy, DLP = ( 976.90 ) mGycm TECHNIQUE: The examination was performed with the intravenous administration of IV 100mL Isovue-370. Post-processing of the angiographic images was performed, with multiplanar reformation and 3D reconstruction. Individualized dose optimization techniques were used for this CT. COMPARISON: None. FINDINGS: Normal enhancement of the main pulmonary artery and right and left pulmonary arteries. Normal enhancement of the bilateral peripheral pulmonary arteries. There is no demonstrated pulmonary embolism. Normal thoracic aorta and visualized great vessels. There is no demonstrated aortic dissection. Normal heart and pericardium. Mild multifocal coronary artery calcification Normal mediastinum. Normal hilar regions. Normal visualized trachea and bronchi. The lungs are well expanded. Normal pulmonary parenchyma. Normal pleura. Normal chest wall structures. Dorsal spine demonstrates moderate spondylosis Small hiatal hernia noted. Nonspecific fatty infiltrated liver. Status post cholecystectomy CT/CTA Chest W/WO Contrast IMPRESSION: ASHD. No acute cardiopulmonary pathology. No evidence for pulmonary embolus. Electronically Signed: Miguelito Ramirez MD at 20:22 EDT ,
[2023-03-11 19:49] LABS: Bacteria 0 SEEN /hpf (None Seen); Mucous, Urine 0 SEEN /hpf (<or=2+); White Blood Cells 0 SEEN /hpf (0-5)
[2023-03-11 19:51] LABS: Color, Urine Yellow (Yellow); Glucose, Dipstick Normal (Normal); Ketone-Dipstick 50 mg/dl (Negative); Leukocyte Esterase-Dipstick Negative /ul (Negative); Nitrite-Dipstick Negative (Negative); Occult Blood-Urine 10 /ul (Negative); Protein-Dipstick 100 mg/dl (Negative); Specific Gravity, Urine 1.025 (1.002-1.030); Urine Clarity Sl. Cloudy (Clear); Urine Urobilinogen Normal (Normal)
[2023-03-11 19:56] LABS: Urine Bilirubin Dipstick 1 mg/dL (Negative)
[2023-03-11 20:03] LABS: Amorphous Sediment 1+ URATE; Red Blood Cells-Urine 0-5 SEEN /hpf (0-5); Squamous Epithelial Cells - UA 0-5 SEEN /hpf (0-5)
[2023-03-11] MEDS: Labetalol (Prefilled) 20 MG/4 ML IV (20:31)
[2023-03-11] MEDS: Ciprofloxacin 400 MG/200 ML BAG 200 MG IV (22:03)
[2023-03-11] MEDS: metroNIDAZOLE 500 MG/100 ML BAG 100 MG IV (22:03)
--- NOTE | 2023-03-11 22:26 | PCM.HP.STD ---
HPI - General General Date of Admission: 03/11/23 Date of Service: 03/11/23 Chief Complaint: Generalized abdominal pain with diarrhea HPI Narrative MORENO EGAN, is a 62 M who presents to the emergency room with chief complaint of generalized abdominal pain with diarrhea onset of symptoms began after the patient tested positive for COVID a week and a half ago. The patient has noticed increased abdominal pain and overall generalized discomfort and weakness. He did test negative earlier today for COVID and respiratory symptoms have subsided. CT scan reveals generalized colitis and CT angiogram of chest is negative for pulmonary embolism. Initially he presented with hypertension that is now started to trend down, however, his renal function has digressed from his normal baseline to a creatinine of 2.5. He will be admitted for IV hydration and treatment of his colitis and anticipate his renal function will improve with IV hydration. [facility] Medical History Former tobacco use GERD (gastroesophageal reflux disease) Hypertension Obesity JUANA (obstructive sleep apnea) Type 2 diabetes mellitus Home Medications pantoprazole 40 mg tablet,delayed release (Protonix) 40 mg PO BID 30 days #60 tabs 12/14/22 [Rx Last Taken Unknown] ondansetron 4 mg disintegrating tablet 4 mg PO Q8H PRN PRN Nausea #14 tabs 03/07/23 [Rx Last Taken Unknown] promethazine 25 mg tablet 25 mg PO TID PRN nausea and vomiting #14 tabs 03/07/23 [Rx Last Taken Unknown] sucralfate 1 gram tablet (Carafate) 1 g PO BID #30 tabs 03/07/23 [Rx Last Taken Unknown] insulin glargine-yfgn 100 unit/mL (3 mL) subcutaneous pen See Rx Instructions subcut DAILY 03/11/23 [History Last Taken Unknown] metformin 500 mg tablet 500 mg PO BID 03/11/23 [History Last Taken Unknown] Allergy/AdvReac Type Severity Reaction Status Date / Time No Known Allergies Allergy Verified 03/11/23 15:07 Family History Mother Diabetes Heart disease Cancer Father No problems noted. Surgical History History of cholecystectomy History of surgery on lower extremity Social History household members: other details: Notes his son lives with him. Smoking Status: Former smoker alcohol intake: never substance use type: does not use ROS Constitutional Constitutional: Reports weakness; Denies chills or fever(s) Eyes Eyes: Denies change in vision ENT HEENT: Denies abnormal hearing Cardiovascular Cardiovascular: Denies chest pain Respiratory/Chest Respiratory/Chest: Denies cough or shortness of breath at rest Gastrointestinal Gastrointestinal: Reports abdominal pain and diarrhea; Denies hematochezia or melena Genitourinary Genitourinary: Denies hematuria Musculoskeletal Musculoskeletal: Denies back pain Integumentary Integumentary: Denies jaundice Neurologic Neurologic: Denies abnormal gait Psychiatric Psychiatric: Denies anxiety Hematologic/Lymphatic Hematologic/Lymphatic: Denies anemia Vital Signs Vital Signs Vital Signs: 03/11/23 15:08 03/11/23 16:28 03/11/23 16:28 Temperature 97.0 F L Temperature Source Temporal Pulse Rate 56 L 101 H Respiratory Rate 18 12 Respiratory Effort Normal Non-Labored Respiratory Pattern Normal Blood Pressure 183/91 H 183/92 H Blood Pressure Mean 121 122 Pulse Ox 97 Oxygen Delivery Method Room Air 03/11/23 17:24 03/11/23 17:58 03/11/23 19:00 Temperature Temperature Source Pulse Rate 102 H 108 H 108 H Respiratory Rate 13 13 Respiratory Effort Respiratory Pattern Blood Pressure 193/95 H 189/104 H 210/119 H Blood Pressure Mean 127 132 149 Pulse Ox Oxygen Delivery Method 03/11/23 19:30 03/11/23 21:00 03/11/23 21:30 Temperature Temperature Source Pulse Rate 109 H 96 96 Respiratory Rate 19 H 27 H 19 H Respiratory Effort Respiratory Pattern Blood Pressure 210/112 H 166/91 H 147/96 H Blood Pressure Mean 138 113 110 Pulse Ox Oxygen Delivery Method Weight Weight: 271 lb Body Mass Index (BMI) 37.8 Physical Exam Const oriented x3 General Appearance: cooperative and well developed HEENT normocephalic and head/scalp atraumatic Eyes PERRL and EOMs intact bilaterally Neck no lymphadenopathy Lymph Lymphatic: no lymphadenopathy noted Resp normal respiratory effort, normal air movement and clear to auscultation bilaterally Cardio regular rate, regular rhythm, S1 normal heart sound, S2 normal heart sound and no murmurs GI GI Narrative: protuberant abdomen Palpation: tender LLQ and RLQ; Negative for guarding Extremity normal capillary refill Skin General Skin Exam: no breakdown Neuro no focal motor deficits and no sensory deficits noted Psych thought process normal, cooperative and affect normal Appearance: appropriate Results Lab / Micro Data 03/11/23 16:30 03/11/23 16:30 Labs: Laboratory Results - last 24 hr 03/11/23 16:30: WBC 9.4, RBC 5.18, Hgb 16.5, Hct 46.4, MCV 89.6, MCH 31.9, MCHC 35.6, RDW Std Deviation 38.8, RDW Coeff of Billy 11.9, Plt Count 228, MPV 10.2, Immature Gran % (Auto) 0.400, Neut % (Auto) 71.0 H, Lymph % (Auto) 20.1, [place] % (Auto) 7.9, Eos % (Auto) 0.2, Baso % (Auto) 0.4, Absolute Neuts (auto) 6.7, Absolute Lymphs (auto) 1.89, Nucleated RBC % 0, Sodium 136, Potassium 3.5, Chloride 99, Carbon Dioxide 28.0, Anion Gap 9, BUN 31 H, Creatinine 2.57 H, Estim Creat Clear Calc 32.15, Est GFR (MDRD) Af Amer 33 L, Est GFR (MDRD) Non-Af 27 L, BUN/Creatinine Ratio 12.1, Glucose 70 L, Calcium 9.8, Total Bilirubin 0.90, AST 18, ALT 28, Alkaline Phosphatase 50, Total Protein 7.9, Albumin 4.3, Globulin 3.6, Albumin/Globulin Ratio 1.2, Lipase 116 H 03/11/23 17:20: D-Dimer Quant (PE/DVT) 0.87 H*, Lactic Acid 1.1 03/11/23 19:45: Urine Color Yellow, Urine Clarity Sl. Cloudy, Urine pH 5.0, Ur Specific [place] 1.025, Urine Protein 100 H, Urine Glucose (UA) Normal, Urine Ketones 50 H, Urine Occult Blood 10 H, Urine Nitrite Negative, Urine Bilirubin 1 H, Urine Urobilinogen Normal, Ur Leukocyte Esterase Negative, Urine RBC 0-5 SEEN, Urine WBC 0 SEEN, Ur Squamous Epith Cells 0-5 SEEN, Amorphous Sediment 1+ URATE, Urine Bacteria 0 SEEN, Urine Mucus 0 SEEN Micro: Microbiology 03/11/23 16:30 Nasal Secretion SARS-CoV-2 & FLU Antigen (Rapid) - Final Radiology Impression Abdomen/Pelvis CT 03/11/23 17:05 IMPRESSION: Findings consistent with nonspecific colitis. No evidence for small bowel obstruction or acute appendicitis Other findings as above Electronically Signed: Miguelito Ramirez MD at 20:30 EDT , Chest CTA 03/11/23 18:38 IMPRESSION: ASHD. No acute cardiopulmonary pathology. No evidence for pulmonary embolus. Electronically Signed: Miguelito Ramirez MD at 20:22 EDT , Assessment & Plan Assessment/Plan (1) Colitis: (2) Acute kidney injury: (3) Diabetes mellitus: QUALIFIERS: Diabetes mellitus type: type 2 PLAN: Plan 1 colitis?continue ciprofloxacin and Flagyl initiated in the emergency room, check stool for C. difficile as this was not done in the emergency room to be sure that we are not treating C. difficile colitis. IV fluids normal saline at 125 cc/h?we will repeat BMP in the morning after he has had IV hydration overnight 2. Hypertension?seems to be trending down as I last saw him we will add as needed hydralazine if necessary 3. Acute kidney injury?we will get BMP done in the morning after he has had IV hydration overnight 4. Diabetes?continue routine home medications 5. DVT prophylaxis?SCDs due to acute kidney injury Charges/Coding Visit Charges Inpatient E&M: 22417 Init Hosp L2
[2023-03-12] VITALS (8 sets, daily range): BP systolic 130–178; BP diastolic 71–102; PULSE 72–103; RESP 14–16; TEMP 36.6–37.3; O2SAT 95–100; BMI 37.9
[2023-03-12] MEDS: 0.9% Normal Saline (1000mL) 1,000 ML 125 ML IV ×4 (00:43→23:49)
[2023-03-12] MEDS: Sucralfate 1 GM Tablet PO ×2 (06:21→16:29)
[2023-03-12 06:43] LABS: Bedside Glucose 70 mg/dL (74-106)
[2023-03-12 07:03] LABS: Absolute Lymphocyte Count 2.61 X10^3/uL (0.83-4.51); Absolute Neutrophil Count 3.5 X10^3/uL (2.0-7.7); Basophil# 0.05 X10^3/uL; Basophil% 0.7 % (0-1); Eosinophil# 0.05 X10^3/uL; Eosinophils% 0.7 % (0-5); Hematocrit 39.9 % (40-54); Hemoglobin 13.7 g/dL (13.0-16.5); Lymphocyte # 2.61 X10^3/ul (0.83-4.51); Lymphocyte % 37.6 % (19-41); Mean Corp Hgb Conc 34.3 g/dL (32-36); Mean Corpuscular Hgb 30.9 pg (27.0-32.0); Mean Corpuscular Volume 89.9 fL (80-94); Mean Platelet Vol. 10.4 fl (6.2-12.0); Monocyte# 0.69 X10^3/uL; Monocyte% 9.9 % (0-10); NRBC Flagged by Analyzer 0 % (0-5); Neutrophil # 3.52 X10^3/uL (2.7-7.7); Neutrophil % 50.7 % (47-70); Platelet Count 176 K/mm3 (150-450); RBC Distribution Width CV 11.8 % (11.6-14.6); RBC Distribution Width SD 38.4 fl (35.1-43.9); Red Blood Count 4.44 M/mm3 (4.6-6.2)
[2023-03-12 07:37] LABS: ALB/GLOB Ratio 1.1 RATIO (0.9-2.4); AST(SGOT) 13 U/L (15-37); Alanine Aminotransfer ALT/SGPT 20 U/L (16-61); Albumin, Serum 3.2 g/dL (3.2-5.0); Alkaline Phosphatase 36 U/L (45-117); Anion Gap 7 (5-15); BUN 25 mg/dL (7-18); BUN/Creat Ratio 18.4 RATIO (10-20); Calcium,Total 8.5 mg/dL (8.5-10.1); Chloride 104 mmol/L (98-107); Creatinine, Serum 1.36 mg/dL (0.70-1.30); EST Glomerular Filtration Rate 56 mL/min (>60); Est Glom Filt Rate - Afr Amer 68 mL/min (>60); Estimated Creatinine Clearance 59.98 ml/min; Globulin 2.8 g/dL (2.2-4.2); Glucose 57 mg/dL (74-106); Potassium 2.9 mmol/L (3.5-5.1); Sodium Level 136 mmol/L (136-145)
[2023-03-12] MEDS: 0.9% Saline Lock 10 ML Syringe IV (08:35)
[2023-03-12] MEDS: Pantoprazole Sodium 40 MG Tablet PO ×2 (08:37→23:46)
[2023-03-12 11:31] LABS: Bedside Glucose 161 mg/dL (74-106)
[2023-03-12] MEDS: Insulin Lispro 100 UNIT/ML INSULN.PEN SC ×2 (11:44→22:37)
[2023-03-12] MEDS: Ensure Clear 120 ML Liquid PO (11:45)
--- NOTE | 2023-03-12 14:23 | CASEMGMT ---
SUZANNA MENDES Assessment: Face to Face with pt for initial transition planning/care coordination assessment. SUZANNA MENDES introduced self and role at [facility], pt voices understanding and consents to assessment. Pt is A&O x4 and answers all questions appropriately at this time. Patient is sitting up on edge of bed. Care providers, pharmacy, and demographics verified/updated. Admitting Dx: Colitis, SHANIQUA PCP: [facility] Specialists: Patient denies having any specialists Preferred Pharmacy: [facility] in [place] Insurance: [employer] Prescription Benefit: yes LNOK: Kana Rendon, Son Living Will/HCPOA: No and No. Patient voices interest in creating a living will and HCPOA during this hospitalization. I informed patient that I will let SW know of this. I also informed patient that he is able to schedule an appointment with the hospital to establish his LW and HCPOA as well if the SW does not have time to assist him with this during this hospitalization. EVAN Cervantes informed of patient's request. Living Arrangements: Pt lives with his son in a doublewide trailer with FFSU and 4 steps w/railing to enter. Patient reports he has no difficulty ambulating these stairs. Patient states prior to this admission he was independent in all ADLs and IADLs. Transportation: Pt drives self and denies concerns with transportation. States he can contact friends if he would ever need help (son does not drive) DME: CPAP and glucometer/insulin supplies. Denies need for additional DME at discharge. HHC/SNF: Denies any pervious HHC and SNF. Denies need for any HHC and SNF at this time. Pt states no concerns with going home at time of dc. Pt states no further concerns/needs. CM to follow. Advised pt to ask CM if any further question/concerns/needs arise, voices understanding. Pt Goal: Home Plan: Patient to discharge home with follow-up plans in place.
--- NOTE | 2023-03-12 16:06 | PN.HOSP_ITS ---
Reason for Visit Reason for Visit: Diagnoses Type 2 diabetes mellitus without complications (03/11/23) Noninfective gastroenteritis and colitis, unspecified (03/11/23) Acute kidney failure, unspecified (03/11/23) Subjective Subjective Patient was seen and examined today, he states he has had 2 bowel movements that were semiformed today, he requests that he be given a more substantial diet other than clear liquids. I have placed an 1800-calorie ADA diet in for him today. Objective Data Objective Data Vital Signs: Vital Signs Temp Pulse Resp BP Pulse Ox O2 Del Method 98.1 F 81 14 143/92 H 100 Room Air 03/12/23 14:00 03/12/23 14:00 03/12/23 14:00 03/12/23 14:00 03/12/23 14:00 03/12/23 14:00 Oxygen Delivery Method Room Air Weight: 123.4 kg Body Mass Index (BMI) 37.9 Intake & Output: Intake and Output for Last 24 Hours 03/10/23 03/11/23 03/12/23 23:59 23:59 23:59 Intake Total 2103.33 / 2103.33 983.33 / 983.33 Balance 2103.33 / 2103.33 983.33 / 983.33 Lab / Micro Data 03/12/23 05:40 03/12/23 05:40 Labs: Laboratory Results - last 24 hr 03/11/23 16:30: WBC 9.4, RBC 5.18, Hgb 16.5, Hct 46.4, MCV 89.6, MCH 31.9, MCHC 35.6, RDW Std Deviation 38.8, RDW Coeff of Billy 11.9, Plt Count 228, MPV 10.2, Immature Gran % (Auto) 0.400, Neut % (Auto) 71.0 H, Lymph % (Auto) 20.1, [place] % (Auto) 7.9, Eos % (Auto) 0.2, Baso % (Auto) 0.4, Absolute Neuts (auto) 6.7, Absolute Lymphs (auto) 1.89, Nucleated RBC % 0, Sodium 136, Potassium 3.5, Chloride 99, Carbon Dioxide 28.0, Anion Gap 9, BUN 31 H, Creatinine 2.57 H, Estim Creat Clear Calc 32.15, Est GFR (MDRD) Af Amer 33 L, Est GFR (MDRD) Non-Af 27 L, BUN/Creatinine Ratio 12.1, Glucose 70 L, Calcium 9.8, Total Bilirubin 0.90, AST 18, ALT 28, Alkaline Phosphatase 50, Total Protein 7.9, Albumin 4.3, Globulin 3.6, Albumin/Globulin Ratio 1.2, Lipase 116 H 03/11/23 17:20: D-Dimer Quant (PE/DVT) 0.87 H*, Lactic Acid 1.1 03/11/23 19:45: Urine Color Yellow, Urine Clarity Sl. Cloudy, Urine pH 5.0, Ur Specific [place] 1.025, Urine Protein 100 H, Urine Glucose (UA) Normal, Urine Ketones 50 H, Urine Occult Blood 10 H, Urine Nitrite Negative, Urine Bilirubin 1 H, Urine Urobilinogen Normal, Ur Leukocyte Esterase Negative, Urine RBC 0-5 SEEN, Urine WBC 0 SEEN, Ur Squamous Epith Cells 0-5 SEEN, Amorphous Sediment 1+ URATE, Urine Bacteria 0 SEEN, Urine Mucus 0 SEEN 03/12/23 05:40: WBC 7.0, RBC 4.44 L, Hgb 13.7, Hct 39.9 L, MCV 89.9, MCH 30.9, MCHC 34.3, RDW Std Deviation 38.4, RDW Coeff of Billy 11.8, Plt Count 176, MPV 10.4, Immature Gran % (Auto) 0.400, Neut % (Auto) 50.7, Lymph % (Auto) 37.6, [place] % (Auto) 9.9, Eos % (Auto) 0.7, Baso % (Auto) 0.7, Absolute Neuts (auto) 3.5, Absolute Lymphs (auto) 2.61, Nucleated RBC % 0, Sodium 136, Potassium 2.9 L , Chloride 104, Carbon Dioxide 25.0, Anion Gap 7, BUN 25 H, Creatinine 1.36 H, Estim Creat Clear Calc 59.98, Est GFR (MDRD) Af Amer 68, Est GFR (MDRD) Non-Af 56 L, BUN/Creatinine Ratio 18.4, Glucose 57 L, Calcium 8.5, Total Bilirubin 0.90, AST 13 L, ALT 20, Alkaline Phosphatase 36 L, Total Protein 6.0 L, Albumin 3.2, Globulin 2.8, Albumin/Globulin Ratio 1.1 03/12/23 06:18: POC Glucose 70 L 03/12/23 11:12: POC Glucose 161 H Micro: Microbiology 03/11/23 10:27 Stool C. difficile DNA Amplification - Final 03/11/23 16:30 Nasal Secretion SARS-CoV-2 & FLU Antigen (Rapid) - Final Radiography Diagnostic Testing: Radiology Impression Abdomen/Pelvis CT 03/11/23 17:05 IMPRESSION: Findings consistent with nonspecific colitis. No evidence for small bowel obstruction or acute appendicitis Other findings as above Electronically Signed: Miguelito Ramirez MD at 20:30 EDT , Chest CTA 03/11/23 18:38 IMPRESSION: ASHD. No acute cardiopulmonary pathology. No evidence for pulmonary embolus. Electronically Signed: Miguelito Ramirez MD at 20:22 EDT , Physical Exam Const alert, oriented x3, no apparent distress and healthy appearing General Appearance: cooperative, well kempt and well developed Orientation / Consciousness: awake, oriented to person, oriented to place and oriented to time HEENT normocephalic, head/scalp atraumatic and moist oral mucous membranes Eyes PERRL, EOMs intact bilaterally and conjunctivae normal Neck supple, no JVD, thyroid normal and no carotid bruits General: trachea midline Resp normal respiratory effort, no retractions, no use of accessory muscles and clear to auscultation bilaterally Auscultation: Negative for rales, rhonchi or wheezes Cardio regular rate, regular rhythm, S1 normal heart sound, S2 normal heart sound, no murmurs, no rub and no gallops GI normal to inspection, nondistended, normoactive bowel sounds, soft to palpation, non-tender and non-distended Extremity no clubbing, cyanosis or edema Skin no rashes or lesions noted General Skin Exam: no breakdown Neuro oriented x3, CN's II-XII intact bilaterally, no focal motor deficits and no sen steffany deficits noted Sensorium / Orientation: awake and alert Speech: speech normal Psych affect normal Assessment & Plan Assessment/Plan (1) Colitis: PLAN: Plan 1. Acute colitis-etiology unclear at this point, patient will remain on IV Cipro and Flagyl, I have elected to place him on a diet at this time. #2 type 2 diabetes-patient's blood sugars will be monitored, sliding scale insulin will be administered as needed #3 acute kidney injury-patient's renal functions have improved with IV fluid administration, I have elected to keep the patient on IV fluids for now, BMP will be repeated tomorrow #4 hypokalemia-patient will be given oral potassium, BMP will be rechecked tomorrow Total clinical time spent by myself addressing patient's medical issues, reviewing all of his data, and collaborating with patient's care team: 35 m inutes Charges/Coding Visit Charges Inpatient E&M: 49770 Subs Hosp L2
[2023-03-12] MEDS: Potassium Chloride Oral Tablet 20 MEQ 60 MEQ PO (16:33)
[2023-03-12] MEDS: Ondansetron 4 MG/2 ML Vial IV (20:33)
[2023-03-12] MEDS: Ciprofloxacin 400 MG/200 ML BAG 200 MG IV (21:13)
[2023-03-12 22:26] LABS: Bedside Glucose 114 mg/dL (74-106)
[2023-03-12] MEDS: metroNIDAZOLE 500 MG/100 ML BAG 100 MG IV (22:27)
[2023-03-12] MEDS: proCHLORPERazine 10 MG/2 ML Vial IV (22:27)
[2023-03-12 22:56] LABS: Bedside Glucose 181 mg/dL (74-106)
[2023-03-12] MEDS: hydrALAZINE 20 MG/ML Vial 10 MG IV (23:47)
[2023-03-13 04:30] VITALS: BP 167/106; PULSE 108; RESP 18; TEMP 37.3; O2SAT 99
[2023-03-13] MEDS: hydrALAZINE 20 MG/ML Vial 10 MG IV (04:30)
[2023-03-13] MEDS: metroNIDAZOLE 500 MG/100 ML BAG 100 MG IV (06:40)
[2023-03-13] MEDS: 0.9% Normal Saline (1000mL) 1,000 ML 125 ML IV (06:40)
[2023-03-13 06:43] VITALS: BP 174/91; PULSE 103
[2023-03-13] MEDS: Sucralfate 1 GM Tablet PO (06:46)
[2023-03-13] MEDS: Insulin Lispro 100 UNIT/ML INSULN.PEN SC (06:48)
[2023-03-13 07:09] LABS: Bedside Glucose 156 mg/dL (74-106)
[2023-03-13 07:52] LABS: Anion Gap 7 (5-15); BUN 10 mg/dL (7-18); BUN/Creat Ratio 10.3 RATIO (10-20); Calcium,Total 9.3 mg/dL (8.5-10.1); Chloride 102 mmol/L (98-107); Creatinine, Serum 0.98 mg/dL (0.70-1.30); EST Glomerular Filtration Rate 83 mL/min (>60); Est Glom Filt Rate - Afr Amer 100 mL/min (>60); Estimated Creatinine Clearance 83.24 ml/min; Glucose 157 mg/dL (74-106); Potassium 3.7 mmol/L (3.5-5.1); Sodium Level 135 mmol/L (136-145)
[2023-03-13] MEDS: Pantoprazole Sodium 40 MG Tablet PO (09:47)
[2023-03-13] MEDS: Ciprofloxacin 400 MG/200 ML BAG 200 MG IV (09:55)
--- NOTE | 2023-03-13 09:58 | DCINST_ITS ---
Discharge Instructions Diet Discharge Diet: No restrictions Activity Discharge Activity: Return to Normal Activity Return to work on:: 03/20/23 Weight Bearing Status: Full weight bearing Follow Up Care Test Results: Test results from this visit will be discussed in further detail at your follow- up appointment, if applicable. Discharge Plan Admission Admit Date/Time: 03/11/23 22:33 Primary Reason for Your Visit: colitis Attending Provider: Evans Hinojosa Primary Care Provider: Evans Napier Consulting Providers: David Renner Discharge Orders/Prescriptions Prescriptions: New amoxicillin 500 mg tablet 500 mg PO TID Qty: 14 0RF Rx Instructions: start in the afternoon on 03/13/23 Continued pantoprazole [Protonix] 40 mg tablet,delayed release (DR/EC) 40 mg PO BID 30 Days Qty: 60 1RF metformin 500 mg tablet 500 mg PO BID Patient Comments: take 1 tablet by mouth twice a day insulin glargine-yfgn 100 unit/mL (3 mL) Insulin Pen See Rx Instructions subcut DAILY Rx Instructions: subcutaneously daily; sliding scale based on bg test result ondansetron 4 mg tablet,disintegrating 4 mg PO Q8H PRN PRN (Reason: Nausea) Qty: 14 0RF promethazine 25 mg tablet 25 mg PO TID PRN (Reason: nausea and vomiting) Qty: 14 0RF sucralfate [Carafate] 1 gram tablet 1 g PO BID Qty: 30 0RF Referrals / Follow Up: Evans Napier DO [Primary Care Provider] - Within 2 Weeks Disposition Disposition (needs filled in before D/C Order can be placed): Home, Self Care
[2023-03-13 10:00] VITALS: BP 130/74; PULSE 107; RESP 14; TEMP 36.6; O2SAT 98
--- NOTE | 2023-03-13 10:10 | DS.PCM_ITS ---
Providers Date of Admission: 03/11/23 Date of Discharge: 03/13/23 Primary Care Physician: Dr. Evans Napier DO Reason For Visit: COLITIS, ACUTE KIDNEY INJURY Diagnosis Discharge Diagnosis (1) Colitis: Status: Resolved Code(s): K52.9 - Noninfective gastroenteritis and colitis, unspecified Plan 1. Acute colitis-etiology unclear at this point, patient will remain on IV Cipro and Flagyl, I have elected to place him on a diet at this time. #2 type 2 diabetes-patient's blood sugars will be monitored, sliding scale insulin will be administered as needed #3 acute kidney injury-patient's renal functions have improved with IV fluid administration, I have elected to keep the patient on IV fluids for now, BMP will be repeated tomorrow #4 hypokalemia-patient will be given oral potassium, BMP will be rechecked tomorrow Total clinical time spent by myself addressing patient's medical issues, reviewi ng all of his data, and collaborating with patient's care team: 35 minutes Medications at Discharge Home Medications pantoprazole 40 mg tablet,delayed release (Protonix) 40 mg PO BID 30 days #60 tabs 12/14/22 ondansetron 4 mg disintegrating tablet 4 mg PO Q8H PRN PRN Nausea #14 tabs 03/07/23 promethazine 25 mg tablet 25 mg PO TID PRN nausea and vomiting #14 tabs 03/07/23 sucralfate 1 gram tablet (Carafate) 1 g PO BID #30 tabs 03/07/23 insulin glargine-yfgn 100 unit/mL (3 mL) subcutaneous pen See Rx Instructions subcut DAILY 03/11/23 metformin 500 mg tablet 500 mg PO BID 03/11/23 amoxicillin 500 mg tablet 500 mg PO TID #14 tabs 03/13/23 Hospital Course Operations None Procedures None Summary of Care Provided Minutes Spent on Discharge: 31 Hospital Course: 63-year-old white male was seen in the emergency room at [facility] with complaints of right-sided abdominal and right lower back pain. Patient had been diagnosed with COVID-19 approximately 10 days prior, patient states that he has malaise and does not feel well. Patient stated he had some nausea vomiting and diarrhea at home. Work-up in the emergency room included a CBC which showed a normal white blood cell count, BUN was 31 and creatinine was 2.57-these were slightly increased from previous labs the patient had. CT of the abdomen and pelvis revealed findings consistent with nonspecific colitis. CTA of the chest was obtained due to an elevated D-dimer, there is no evidence of pulmonary embolism noted. Patient was given IV fluids in the emergency room and morphine and Zofran, he was admitted to [place] [address] and kept on IV antibiotics and fluids. Potassium replacement was given to the patient. Patient's creatinine normalized during his hospitalization. On 03/13/2023, patient was seen and examined: On examination he appeared in good health and spirits. Vital signs as documented. Skin warm and dry and without overt rashes. Neck without JVD, neck was supple, trachea midline, thyroid was normal. Lungs clear bilaterally, normal air movement was noted. Heart exam notable for regular rhythm, normal sounds and absence of murmurs, rubs or gallops. Abdomen unremarkable and without evidence of organomegaly, masses, or abdominal aortic enlargement. Bowel sounds are present, abdomen is not distended. Extremities nonedematous, no cyanosis was noted, no clubbing was noted. Neuro: Cranial nerves II through XII are grossly intact, no focal motor deficits were noted, sensation to light touch and pinprick intact, motor exam 5/5 throughout. Psych: Patient is alert and oriented x3, he does not appear anxious or depressed, he does not appear agitated. Patient was discharged home in stable condition on 03/13/2023. Weight / BMI Weight Weight: 123.4 kg Body Mass Index (BMI) 37.9 ABG / Lab / Microbiology Data 03/12/23 05:40 03/13/23 06:30 Laboratory: Laboratory Results - last 24 hr 03/12/23 11:12: POC Glucose 161 H 03/12/23 16:30: POC Glucose 114 H 03/12/23 22:35: POC Glucose 181 H 03/13/23 06:30: Sodium 135 L, Potassium 3.7, Chloride 102, Carbon Dioxide 26.0, Anion Gap 7, BUN 10, Creatinine 0.98, Estim Creat Clear Calc 83.24, Est GFR (MDRD) Af Amer 100, Est GFR (MDRD) Non-Af 83, BUN/Creatinine Ratio 10.3, Glucose 157 H, Calcium 9.3 03/13/23 06:45: POC Glucose 156 H Microbiology: Microbiology 03/11/23 10:27 Stool C. difficile DNA Amplification - Final 03/11/23 16:30 Nasal Secretion SARS-CoV-2 & FLU Antigen (Rapid) - Final D/C Instructions Discharge Diet: No restrictions Return to work on: 03/20/23 Weight Bearing Status: Full weight bearing Meaningful Use Info Meaningful Use Diagnoses (Choose all that apply): None applicable Discharge Plan Admission Admit Date/Time: 03/11/23 22:33 Primary Reason for Your Visit: colitis Attending Provider: Evans Hinojosa Primary Care Provider: Evans Napier Consulting Providers: David Renner Discharge Orders/Prescriptions Prescriptions: New amoxicillin 500 mg tablet 500 mg PO TID Qty: 14 0RF Rx Instructions: start in the afternoon on 03/13/23 Continued pantoprazole [Protonix] 40 mg tablet,delayed release (DR/EC) 40 mg PO BID 30 Days Qty: 60 1RF metformin 500 mg tablet 500 mg PO BID Patient Comments: take 1 tablet by mouth twice a day insulin glargine-yfgn 100 unit/mL (3 mL) Insulin Pen See Rx Instructions subcut DAILY Rx Instructions: subcutaneously daily; sliding scale based on bg test result ondansetron 4 mg tablet,disintegrating 4 mg PO Q8H PRN PRN (Reason: Nausea) Qty: 14 0RF promethazine 25 mg tablet 25 mg PO TID PRN (Reason: nausea and vomiting) Qty: 14 0RF sucralfate [Carafate] 1 gram tablet 1 g PO BID Qty: 30 0RF Referrals / Follow Up: Evans Napier DO [Primary Care Provider] - Within 2 Weeks Disposition Disposition (needs filled in before D/C Order can be placed): Home, Self Care Charges/Coding Visit Charges Inpatient E&M: 70874 Disch Hosp >30min
--- NOTE | 2023-03-13 10:55 | CASEMGMT ---
Social Work SW assisted pt in completing living will and health care POA naming his son Kana Rendon and first alternate his sister Azra Rendon. Copies placed on pt chart and originals given to pt. NATHANIEL Weber
== END 2023-03-13 11:40 | disposition home or self-care (01) | DRG 392 ==
LOC: ED 22:18 → MS3 22:40
PROVIDERS: Admitting Provider Family Medicine; Emergency Provider Emergency Medicine; PCP Family Medicine; Visit Provider Internal Medicine
DX: K52.9 Noninfective gastroenteritis and colitis, unspecified (principal); N17.9 Acute kidney failure, unspecified; E11.9 Type 2 diabetes mellitus without complications; Z79.4 Long term (current) use of insulin; I10 Essential (primary) hypertension; E87.6 Hypokalemia; R79.1 Abnormal coagulation profile; Z79.84 Long term (current) use of oral hypoglycemic drugs; Z86.16 Personal history of COVID-19; Z87.891 Personal history of nicotine dependence
CPT/HCPCS: 36415; 71275; 74177; 80048; 80053; 81001; 82962; 83605; 83690; 85025; 85379; 87428; 87493; 93005; 97802; 99284; J7030; J7050; Q9967; A4216; J0744; J2405

== ENCOUNTER → 2023-04-29 | Outpatient (CLI) | payer OTHER, SELFPAY | END | disposition home or self-care (01) | LOC: SL 20:21 | PROVIDERS: PCP Family Medicine; Referring Provider Family Medicine; Visit Provider Family Medicine | DX: G47.33 Obstructive sleep apnea (adult) (pediatric) (principal) | CPT/HCPCS: 95811 ==

== ENCOUNTER 2023-05-21 16:47 | Emergency (ER) | payer OTHER, SELFPAY ==
[2023-05-21 16:48] VITALS: BP 148/100; PULSE 50; RESP 16; TEMP 36.6; O2SAT 100; BMI 39.4
--- NOTE | 2023-05-21 18:42 | ED.VIS.GI ---
HPI HPI - GI History of Present Illness Chief Complaint: Constipation Informant: patient Narrative Narrative: Presents concerns for constipation with generalized abdominal pain. He states constipation started 10 days ago 3 days ago took Ex-Lax had a normal bowel movement. No bowel movement since positive flatus today took Ex-Lax with no improvement. Typical bowel movements are daily. No new medications started, no current pain med regimen. No urinary symptoms. He states feels more bloated when he eats. He was able to eat yesterday. Denies any abdominal surgeries. EGD colonoscopy a year ago by Dr. Olsen stating he had [address] [facility] Medical History Former tobacco use GERD (gastroesophageal reflux disease) Hypertension Obesity JUANA (obstructive sleep apnea) Type 2 diabetes mellitus Home Medications pantoprazole 40 mg tablet,delayed release (Protonix) 40 mg PO BID 30 days #60 tabs 12/14/22 [Rx Last Taken Unknown] ondansetron 4 mg disintegrating tablet 4 mg PO Q8H PRN PRN Nausea #14 tabs 03/07/23 [Rx Last Taken Unknown] promethazine 25 mg tablet 25 mg PO TID PRN nausea and vomiting #14 tabs 03/07/23 [Rx Last Taken Unknown] sucralfate 1 gram tablet (Carafate) 1 g PO BID #30 tabs 03/07/23 [Rx Last Taken Unknown] insulin glargine-yfgn 100 unit/mL (3 mL) subcutaneous pen See Rx Instructions subcut DAILY 03/11/23 [History Last Taken Unknown] metformin 500 mg tablet 500 mg PO BID 03/11/23 [History Last Taken Unknown] Allergy/AdvReac Type Severity Reaction Status Date / Time No Known Allergies Allergy Verified 05/21/23 16:51 Family History Mother Diabetes Heart disease Cancer Father No problems noted. Surgical History History of cholecystectomy History of surgery on lower extremity Social History household members: other details: Notes his son lives with him. Smoking Status: Former smoker alcohol intake: never substance use type: does not use ROS ROS ED Constitutional Constitutional ED: Denies chills, fever(s) or sweats Eyes Eyes: Denies change in vision ENT ENT ED: Denies dysphagia or sore throat Cardiovascular Cardiovascular: Denies chest pain, leg edema, palpitations or racing heartbeat Respiratory/Chest Respiratory/Chest: Denies cough, dyspnea or dyspnea on exertion Gastrointestinal Gastrointestinal: Reports abdominal pain and constipation; Denies diarrhea, nausea or vomiting Genitourinary Genitourinary ED: Denies dysuria, hematuria or urinary frequency Musculoskeletal Musculoskeletal: Denies back pain, extremity pain or neck pain Integumentary Denies rash or wounds Neurologic Neurologic: Denies headache(s), paresthesias or weakness EXAM Physical Exam Const Vital Signs: 05/21/23 16:48 05/21/23 21:47 05/21/23 21:47 Temperature 98 F Temperature Source Temporal Pulse Rate 50 L Respiratory Rate 16 14 14 Blood Pressure 148/100 H Blood Pressure Mean 116 Pulse Ox 100 Oxygen Delivery Method Room Air Positive well nourished and well developed General Appearance ED: well developed and NAD HEENT Reports moist mucous membranes normocephalic and atraumatic Eyes PERRL, EOMs intact bilaterally and conjunctivae normal General Eye ED: Yes normal appearance of both eyes Neck no lymphadenopathy and supple General: Negative for tenderness Chest Wall Chest: Negative for tenderness Resp normal respiratory effort and normal air movement Effort and Inspection: symmetric chest movement; Negative for respiratory distress Cardio regular rate, regular rhythm and no murmurs Peripheral Pulses: pulses 2+ throughout GI normal to inspection, nondistended, normoactive bowel sounds GI Narrative: Mild generalized pain without guarding or rebound. Positive bowel sounds. Negative Mcdonough's or McBurney's tenderness. No pain with deep palpation left lower quadrant. Palpation: Negative for guarding or rebound tenderness present Back/Spine no CVA tenderness and no thoracic nor lumbar tenderness Extremity normal to inspection General Extremety ED: Negative for edema or tenderness General Extremity: Negative for edema Neuro oriented x3 and no sensory deficits noted Sensorium / Orientation: awake and alert Skin no rashes or lesions noted and no wounds MDM MDM MDM Narrative Medical decision making narrative: Interventions / MDM: Differential diagnosis: Constipation Diagnosis considered but do not suspect: Colitis, appendicitis, bowel obstruction however CT negative. My EKG interpretation: N/A Imaging independently reviewed and interpreted by myself: No acute process stools were noted down in the rectum with no obstruction. External documents reviewed: N/A Test considered but not ordered:N/A ED course: Patient nonsurgical abdomen however reported generalized pain. Abdominal labs were obtained IV fluids, CT scan ordered. Labs and CT were normal. On reevaluation he reported after IV fluids were started he has had multiple bowel movements in the ED. His symptoms were improved. Therefore was discharged to continue oral fluids hydration at home and outpatient follow-up. All questions were answered. Re-evaluation: stable Disposition discussed with patient/family/significant other: Patient Case discussed with consulting clinician: N/A This note was generated with [employer] dictation software. It may contain incorrect words, spelling, and punctuation that were not noted in checking the note before signing. CT abdomen pelvis: Lab Data Attestation: I reviewed the patient's lab results. Labs: Laboratory Results - last 24 hr 05/21/23 05/21/23 18:36 19:20 WBC 8.8 RBC 4.61 Hgb 14.7 Hct 42.0 MCV 91.1 MCH 31.9 MCHC 35.0 RDW Std Deviation 42.9 RDW Coeff of Billy 13.0 Plt Count 189 MPV 10.8 Immature Gran % (Auto) 0.100 Neut % (Auto) 60.7 Lymph % (Auto) 27.8 [place] % (Auto) 9.6 Eos % (Auto) 1.1 Baso % (Auto) 0.7 Absolute Neuts (auto) 5.3 Absolute Lymphs (auto) 2.44 Nucleated RBC % 0 Sodium Cancelled 137 Potassium Cancelled 3.6 Chloride Cancelled 106 Carbon Dioxide Cancelled 28.0 Anion Gap Cancelled 3 L BUN Cancelled 11 Creatinine Cancelled 0.83 Estim Creat Clear Calc Cancelled 98.28 Est GFR (MDRD) Af Amer Cancelled 121 Est GFR (MDRD) Non-Af Cancelled 100 BUN/Creatinine Ratio Cancelled 13.2 Glucose Cancelled 145 H Calcium Cancelled 8.9 Total Bilirubin Cancelled 1.10 H AST Cancelled 13 L ALT Cancelled 22 Alkaline Phosphatase Cancelled 35 L Total Protein Cancelled 6.5 Albumin Cancelled 3.3 Globulin Cancelled 3.2 Albumin/Globulin Ratio Cancelled 1.0 Lipase Cancelled 41 Radiography Diagnostic Testing: Clinical Impression(s) from Imaging Studies Abdomen/Pelvis CT 05/21/23 20:05 IMPRESSION: Left nephrolithiasis without evidence for obstruction Minor diverticular changes of the colon without evidence for acute diverticulitis No acute abnormalities with other findings as above Electronically Signed: Miguelito Ramirez MD at 20:45 EST Reading Location ID and State: [address] [place] [address] Tel , Service support , Discharge Plan Triage Chief Complaint: Constipation ED Provider: Matt Black Dx/Rx/DC Orders Clinical Impression: Abdominal pain, Constipation Instructions: ED Constipation (Adult) Prescriptions: No Action pantoprazole [Protonix] 40 mg tablet,delayed release (DR/EC) 40 mg PO BID 30 Days Qty: 60 1RF metformin 500 mg tablet 500 mg PO BID Patient Comments: take 1 tablet by mouth twice a day insulin glargine-yfgn 100 unit/mL (3 mL) Insulin Pen See Rx Instructions subcut DAILY Rx Instructions: subcutaneously daily; sliding scale based on bg test result ondansetron 4 mg tablet,disintegrating 4 mg PO Q8H PRN PRN (Reason: Nausea) Qty: 14 0RF promethazine 25 mg tablet 25 mg PO TID PRN (Reason: nausea and vomiting) Qty: 14 0RF sucralfate [Carafate] 1 gram tablet 1 g PO BID Qty: 30 0RF Primary Care Provider: Evans Napier Referrals: Evans Napier DO [Primary Care Provider] - 1 Week Activity Restrictions/Additional Instructions: CT scan negative for any acute process. Laboratory studies were all stable. You had multiple bowel movements in the ED per continue oral fluids for hydration. Follow-up with your doctor. Disposition Disposition: Home, Self Care Discharge Date/Time: 05/21/23 21:50
[2023-05-21] MEDS: 0.9% Normal Saline (1000mL) 1,000 ML 1000 ML IV (18:43)
[2023-05-21 18:54] LABS: Absolute Lymphocyte Count 2.44 X10^3/uL (0.83-4.51); Absolute Neutrophil Count 5.3 X10^3/uL (2.0-7.7); Basophil# 0.06 X10^3/uL; Basophil% 0.7 % (0-1); Eosinophils% 1.1 % (0-5); Hemoglobin 14.7 g/dL (13.0-16.5); Lymphocyte # 2.44 X10^3/ul (0.83-4.51); Lymphocyte % 27.8 % (19-41); Mean Corpuscular Hgb 31.9 pg (27.0-32.0); Mean Corpuscular Volume 91.1 fL (80-94); Mean Platelet Vol. 10.8 fl (6.2-12.0); Monocyte# 0.84 X10^3/uL; Monocyte% 9.6 % (0-10); NRBC Flagged by Analyzer 0 % (0-5); Neutrophil # 5.33 X10^3/uL (2.7-7.7); Neutrophil % 60.7 % (47-70); Platelet Count 189 K/mm3 (150-450); RBC Distribution Width SD 42.9 fl (35.1-43.9); Red Blood Count 4.61 M/mm3 (4.6-6.2); White Blood Count 8.8 K/mm3 (4.4-11.0)
[2023-05-21 19:54] LABS: AST(SGOT) 13 U/L (15-37); Alanine Aminotransfer ALT/SGPT 22 U/L (16-61); Albumin, Serum 3.3 g/dL (3.2-5.0); Alkaline Phosphatase 35 U/L (45-117); Anion Gap 3 (5-15); BUN 11 mg/dL (7-18); BUN/Creat Ratio 13.2 RATIO (10-20); Calcium,Total 8.9 mg/dL (8.5-10.1); Chloride 106 mmol/L (98-107); Creatinine, Serum 0.83 mg/dL (0.70-1.30); EST Glomerular Filtration Rate 100 mL/min (>60); Est Glom Filt Rate - Afr Amer 121 mL/min (>60); Estimated Creatinine Clearance 98.28 ml/min; Globulin 3.2 g/dL (2.2-4.2); Glucose 145 mg/dL (74-106); Lipase 41 U/L (13-75); Potassium 3.6 mmol/L (3.5-5.1); Protein, Total 6.5 g/dL (6.4-8.2); Sodium Level 137 mmol/L (136-145)
--- NOTE | 2023-05-21 20:05 | CT_ITS ---
STUDY: CT ABDOMEN AND PELVIS WITH CONTRAST REASON FOR EXAM: Male, 63 years old. pain RADIATION DOSAGE (If Supplied By Facility): CTDIvol = ( 21.56 ) mGy, DLP = ( 1681.67 ) mGycm TECHNIQUE: Transaxial images were obtained from the dome of the diaphragm to the symphysis pubis without oral contrast. IV 100mL Isovue-370 was administered. Sagittal and coronal images were reconstructed. Individualized dose optimization techniques were used for this CT. COMPARISON: March 11, 2023 FINDINGS: The visualized lung bases are unremarkable. Minor calcification of coronary arteries Nonspecific fatty infiltrated liver without mass or bile duct dilatation. Gallbladder has been removed surgically. Normal spleen. Normal pancreas. Normal bilateral adrenal glands. Normal right kidney. Tiny nonobstructing left renal calculus. No obstruction or mass Normal visualized stomach. Normal small intestine. Minor diverticular changes of the colon without evidence for acute diverticulitis. No evidence for acute appendicitis.. Normal abdominal aorta. Normal inferior vena cava. Normal retroperitoneum. Normal urinary bladder. Mild nonspecific prostate enlargement Normal abdominal wall. Lumbar spine demonstrates mild spondylosis. CT/Abdomen/Pelvis W IV Cont ONLY IMPRESSION: Left nephrolithiasis without evidence for obstruction Minor diverticular changes of the colon without evidence for acute diverticulitis No acute abnormalities with other findings as above Electronically Signed: Miguelito Ramirez MD at 20:45 EST ,
[2023-05-21 21:47] VITALS: RESP 14
== END 2023-05-21 21:50 | disposition home or self-care (01) ==
PROVIDERS: Emergency Provider Emergency Medicine; PCP Family Medicine; Visit Provider Emergency Medicine
DX: R10.9 Unspecified abdominal pain (principal); E11.9 Type 2 diabetes mellitus without complications; K59.00 Constipation, unspecified; G47.33 Obstructive sleep apnea (adult) (pediatric); Z87.891 Personal history of nicotine dependence
CPT/HCPCS: 74177; 80053; 83690; 85025; 96360; 99282; Q9967; A4216

== ENCOUNTER → 2023-05-30 | Outpatient (CLI) | payer OTHER, SELFPAY | END | disposition home or self-care (01) | LOC: SL 09:25 | PROVIDERS: PCP Family Medicine; Visit Provider Family Medicine | DX: Z00.00 Encounter for general adult medical examination without abnormal findings (principal) ==

== ENCOUNTER → 2023-06-28 | Outpatient (CLI) | payer OTHER, SELFPAY ==
[2023-06-28 13:12] LABS: Cholesterol 104 mg/dL (200); High Density Lipoprotein 54 mg/dL; PSA,Total - Annual Screen 0.31 ng/mL (0.00-4.00); Triglycerides 87 mg/dL; Very Low Density Lipoprotein 17 mg/dL (5-40)
[2023-06-28 13:52] LABS: Hemoglobin A1c 6.6 % (3.8-5.6)
== END | disposition home or self-care (01) ==
LOC: BFHLAB 09:54
PROVIDERS: PCP Family Medicine; Visit Provider Family Medicine
DX: E11.9 Type 2 diabetes mellitus without complications (principal); I25.10 Atherosclerotic heart disease of native coronary artery without angina pectoris
CPT/HCPCS: 36415; 80061; 82043; 82570; 83036; 84153; G0103

== ENCOUNTER 2023-08-13 04:04 | Emergency (ER) | payer OTHER, SELFPAY ==
[2023-08-13 04:05] VITALS: BP 188/104; PULSE 101; RESP 16; TEMP 36.7; O2SAT 98; BMI 30.4
--- NOTE | 2023-08-13 04:09 | ED.VIS.GI ---
HPI HPI - GI History of Present Illness Chief Complaint: Nausea/Vomiting Informant: patient Nausea/Vomiting/Emesis GI Symptom: Positive for Nausea and Vomiting Onset: Yesterday Quality: Positive for Nonbilious; Negative for Blood streaks, Coffee ground or Hematemesis Diarrhea/Melena/Hematochezia GI Symptom: Negative for Diarrhea, Melena or Hematochezia Associated Symptoms Associated Symptoms: Negative for Dysuria, Frequency or Hematuria Narrative Narrative: Patient presents with nausea and vomiting that began yesterday. Patient states it came on gradually. Patient denies any hematemesis or coffee-ground emesis. Patient denies any abdominal pain with this. Patient denies any diarrhea, melena, or hematochezia. Patient denies any dysuria, frequency, or hematuria. Patient admits to some chills and sweats but states that is mainly whenever he has vomiting. Patient denies any chest pain or shortness of breath. Patient denies any fevers. Patient states nothing makes his nausea and vomiting any better and nothing makes it any worse. [facility] Medical History Former tobacco use GERD (gastroesophageal reflux disease) Hypertension Obesity JUANA (obstructive sleep apnea) Type 2 diabetes mellitus Home Medications pantoprazole 40 mg tablet,delayed release (Protonix) 40 mg PO BID 30 days #60 tabs 12/14/22 [Rx Last Taken Unknown] sucralfate 1 gram tablet (Carafate) 1 g PO BID #30 tabs 03/07/23 [Rx Last Taken Unknown] insulin glargine-yfgn 100 unit/mL (3 mL) subcutaneous pen See Rx Instructions subcut DAILY 03/11/23 [History Last Taken Unknown] metformin 500 mg tablet 500 mg PO BID 03/11/23 [History Last Taken Unknown] ondansetron 4 mg disintegrating tablet 4 mg PO Q8H PRN PRN Nausea #10 tabs 08/13/23 [Rx Last Taken Unknown] Allergy/AdvReac Type Severity Reaction Status Date / Time No Known Allergies Allergy Verified 08/13/23 04:07 Family History Mother Diabetes Heart disease Cancer Father No problems noted. Surgical History History of cholecystectomy History of surgery on lower extremity Social History household members: other details: Notes his son lives with him. Smoking Status: Former smoker alcohol intake: never substance use type: does not use ROS ROS ED Constitutional Constitutional ED: Reports chills, subjective and sweats; Denies fever(s) Eyes Eyes: Denies blurry vision or change in vision ENT ENT ED: Denies rhinorrhea or sore throat Cardiovascular Cardiovascular: Denies chest pain or palpitations Respiratory/Chest Respiratory/Chest: Denies cough or dyspnea Gastrointestinal Gastrointestinal: Reports nausea and vomiting; Denies abdominal pain, constipation, diarrhea or melena Genitourinary Genitourinary ED: Denies dysuria or hematuria Musculoskeletal Musculoskeletal: Denies back pain or neck pain Integumentary Denies abscess or rash Neurologic Neurologic: Denies headache(s) or weakness Allergic/Immunologic Allergic/Immunologic ED: Denies mouth swelling or urticaria EXAM Physical Exam Const Vital Signs: 08/13/23 04:05 Temperature 98.1 F Temperature Source Oral Pulse Rate 101 H Respiratory Rate 16 Blood Pressure 188/104 H Blood Pressure Mean 132 Pulse Ox 98 Oxygen Delivery Method Room Air Positive well nourished and well developed General Appearance ED: well developed and NAD HEENT Reports moist mucous membranes Neck supple and no JVD Resp normal respiratory effort and clear to auscultation bilaterally Cardio regular rate and regular rhythm GI non-tender and non-distended Palpation: soft Neuro CN's II-XII intact bilaterally, moves all extremities and no sensory deficits noted Sensorium / Orientation: alert Motor Exam: strength 5/5 throughout Psych mental status grossly normal and thought process normal MDM MDM MDM Narrative Medical decision making narrative: Differential diagnosis includes gastroenteritis, DKA, viral illness, gastritis, urinary tract infection, peptic ulcer disease, and GERD. CBC will be obtained to assess for leukocytosis or anemia. Basic metabolic profile will be obtained to assess for electrolyte abnormality and renal function. Urinalysis will be obtained to assess for urinary tract infection, hematuria, and glucosuria. COVID-19, influenza, and RSV PCR will be obtained to assess for viral infection. Lab Data Attestation: I reviewed the patient's lab results. Lab results narrative: CBC was reviewed and was within normal limits. Basic metabolic profile was reviewed and showed a slightly elevated glucose of 205. Anion gap was normal. Electrolytes were normal. Urinalysis was reviewed. Urine glucose was 100. Urine ketones were 50. Occult blood was 25. There are 5-10 red blood cells. There is no evidence of urinary tract infection. COVID-19 PCR was reviewed and was negative. Influenza PCR was reviewed and was negative for influenza A and influenza B. RSV PCR was reviewed and was negative. Labs: Laboratory Results - last 24 hr 08/13/23 08/13/23 08/13/23 04:16 04:39 05:40 WBC 4.1 L RBC 4.68 Hgb 14.6 Hct 41.8 MCV 89.3 MCH 31.2 MCHC 34.9 RDW Std Deviation 38.2 RDW Coeff of Billy 11.9 Plt Count 73 L MPV 11.3 Immature Gran % (Auto) 0.500 Neut % (Auto) 64.2 Lymph % (Auto) 19.1 [place] % (Auto) 15.7 H Eos % (Auto) 0.0 Baso % (Auto) 0.5 Absolute Neuts (auto) 2.7 Absolute Lymphs (auto) 0.79 L Nucleated RBC % 0 Differential Comment SCANNED Platelet Estimate MOD DEC Sodium 137 Potassium 4.8 Chloride 103 Carbon Dioxide 24.0 Anion Gap 10 BUN 22 H Creatinine 0.95 Estim Creat Clear Calc 96.71 Est GFR (MDRD) Af Amer 104 Est GFR (MDRD) Non-Af 86 BUN/Creatinine Ratio 23.3 H Glucose 205 H Calcium 9.3 Urine Color Yellow Urine Clarity Clear Urine pH 6.5 Ur Specific [place] 1.030 Urine Protein 500 H Urine Glucose (UA) 100 H Urine Ketones 50 H Urine Occult Blood 25 H Urine Nitrite Negative Urine Bilirubin Negative Urine Urobilinogen 1 H Ur Leukocyte Esterase Negative Urine RBC 5-10 SEEN Urine WBC 0 SEEN Ur Squamous Epith Cells 0 SEEN Urine Bacteria 0 SEEN Urine Mucus 0 SEEN POC Glucose 211 H Treatment and Re-Evaluation :: Patient was given IV fluids and Zofran. Patient was still having some nausea on reevaluation. Patient was given a dose of Phenergan. Patient was advised of his findings. Patient was instructed to start with small amounts of liquids more frequently. Patient was given a prescription for Zofran. Patient was instructed to follow-up with his primary care physician in 3 to 5 days. Patient understood and was agreeable with the plan. All questions were answered. Discharge Plan Triage Chief Complaint: Nausea/Vomiting ED Provider: Wily Maldonado Dx/Rx/DC Orders Clinical Impression: Viral illness, Nausea and vomiting Instructions: ED Vomiting (Adult) Prescriptions: New ondansetron [ondansetron] 4 mg tablet,disintegrating 4 mg PO Q8H PRN PRN (Reason: Nausea) Qty: 10 0RF No Action pantoprazole [Protonix] 40 mg tablet,delayed release (DR/EC) 40 mg PO BID 30 Days Qty: 60 1RF metformin 500 mg tablet 500 mg PO BID Patient Comments: take 1 tablet by mouth twice a day insulin glargine-yfgn 100 unit/mL (3 mL) Insulin Pen See Rx Instructions subcut DAILY Rx Instructions: subcutaneously daily; sliding scale based on bg test result sucralfate [Carafate] 1 gram tablet 1 g PO BID Qty: 30 0RF Primary Care Provider: Evans Napier Referrals: Evans Napier DO [Primary Care Provider] - 3-5 Days Disposition Disposition: Home, Self Care
[2023-08-13 04:39] LABS: Bedside Glucose 211 mg/dL (74-106)
[2023-08-13] MEDS: Ondansetron 4 MG/2 ML Vial IV (04:46)
[2023-08-13 04:54] LABS: Absolute Lymphocyte Count 0.79 X10^3/uL (0.83-4.51); Absolute Neutrophil Count 2.7 X10^3/uL (2.0-7.7); Basophil# 0.02 X10^3/uL; Basophil% 0.5 % (0-1); Hematocrit 41.8 % (40-54); Hemoglobin 14.6 g/dL (13.0-16.5); Lymphocyte # 0.79 X10^3/ul (0.83-4.51); Lymphocyte % 19.1 % (19-41); Mean Corp Hgb Conc 34.9 g/dL (32-36); Mean Corpuscular Hgb 31.2 pg (27.0-32.0); Mean Corpuscular Volume 89.3 fL (80-94); Mean Platelet Vol. 11.3 fl (6.2-12.0); Monocyte# 0.65 X10^3/uL; Monocyte% 15.7 % (0-10); NRBC Flagged by Analyzer 0 % (0-5); Neutrophil # 2.65 X10^3/uL (2.7-7.7); Neutrophil % 64.2 % (47-70); POSITIVE COUNT YES; Platelet Count 73 K/mm3 (150-450); RBC Distribution Width CV 11.9 % (11.6-14.6); RBC Distribution Width SD 38.2 fl (35.1-43.9); Red Blood Count 4.68 M/mm3 (4.6-6.2); White Blood Count 4.1 K/mm3 (4.4-11.0)
[2023-08-13 04:56] LABS: Differential Indicated SCAN CRITERIA MET
[2023-08-13 05:22] LABS: Anion Gap 10 (5-15); BUN 22 mg/dL (7-18); BUN/Creat Ratio 23.3 RATIO (10-20); Calcium,Total 9.3 mg/dL (8.5-10.1); Chloride 103 mmol/L (98-107); Creatinine, Serum 0.95 mg/dL (0.70-1.30); EST Glomerular Filtration Rate 86 mL/min (>60); Est Glom Filt Rate - Afr Amer 104 mL/min (>60); Estimated Creatinine Clearance 96.71 ml/min; Glucose 205 mg/dL (74-106); Potassium 4.8 mmol/L (3.5-5.1); Sodium Level 137 mmol/L (136-145)
[2023-08-13 05:31] LABS: Differential Comment SCANNED
[2023-08-13 05:32] LABS: Platelet Estimate MOD DEC (ADEQ)
[2023-08-13 05:49] LABS: Bacteria 0 SEEN /hpf (None Seen); Mucous, Urine 0 SEEN /hpf (<or=2+); Squamous Epithelial Cells - UA 0 SEEN /hpf (0-5); White Blood Cells 0 SEEN /hpf (0-5)
[2023-08-13 05:51] LABS: Color, Urine Yellow (Yellow); Glucose, Dipstick 100 mg/dl (Normal); Ketone-Dipstick 50 mg/dl (Negative); Leukocyte Esterase-Dipstick Negative /ul (Negative); Nitrite-Dipstick Negative (Negative); Occult Blood-Urine 25 /ul (Negative); Protein-Dipstick 500 mg/dl (Negative); Urine Bilirubin Dipstick Negative (Negative); Urine Clarity Clear (Clear); Urine Urobilinogen 1 mg/dl (Normal); Urine pH 6.5 (5.0 - 8.0)
[2023-08-13 06:12] LABS: Red Blood Cells-Urine 5-10 SEEN /hpf (0-5)
[2023-08-13 06:39] VITALS: BP 166/99; PULSE 88; RESP 16; TEMP 36.2; O2SAT 94
== END 2023-08-13 07:07 | disposition home or self-care (01) ==
PROVIDERS: Emergency Provider Emergency Medicine; PCP Family Medicine; Visit Provider Emergency Medicine
DX: B34.9 Viral infection, unspecified (principal); Z79.4 Long term (current) use of insulin; E11.9 Type 2 diabetes mellitus without complications; R11.2 Nausea with vomiting, unspecified; Z79.84 Long term (current) use of oral hypoglycemic drugs; G47.33 Obstructive sleep apnea (adult) (pediatric); Z87.891 Personal history of nicotine dependence
CPT/HCPCS: 80048; 81001; 82962; 85025; 87631; 96374; 99283; J7030; A4216; J2405

== ENCOUNTER → 2023-08-23 | Outpatient (CLI) | payer OTHER, SELFPAY ==
[2023-08-23 16:46] LABS: Absolute Lymphocyte Count 2.34 X10^3/uL (0.83-4.51); Absolute Neutrophil Count 9.8 X10^3/uL (2.0-7.7); Basophil# 0.04 X10^3/uL; Basophil% 0.3 % (0-1); Eosinophil# 0.02 X10^3/uL; Eosinophils% 0.1 % (0-5); Hematocrit 45.7 % (40-54); Lymphocyte # 2.34 X10^3/ul (0.83-4.51); Lymphocyte % 17.4 % (19-41); Mean Corpuscular Hgb 31.4 pg (27.0-32.0); Mean Corpuscular Volume 89.6 fL (80-94); Mean Platelet Vol. 11.3 fl (6.2-12.0); Monocyte# 1.22 X10^3/uL; Monocyte% 9.1 % (0-10); NRBC Flagged by Analyzer 0 % (0-5); Neutrophil # 9.76 X10^3/uL (2.7-7.7); Neutrophil % 72.7 % (47-70); Platelet Count 242 K/mm3 (150-450); RBC Distribution Width CV 11.9 % (11.6-14.6); RBC Distribution Width SD 39.1 fl (35.1-43.9); White Blood Count 13.4 K/mm3 (4.4-11.0)
[2023-08-23 17:04] LABS: Erythrocyte Sedimentation Rate 1 mm/hr (0-20)
[2023-08-23 17:22] LABS: ALB/GLOB Ratio 1.3 RATIO (0.9-2.4); AST(SGOT) 24 U/L (15-37); Alanine Aminotransfer ALT/SGPT 42 U/L (16-61); Albumin, Serum 4.4 g/dL (3.2-5.0); Alkaline Phosphatase 41 U/L (45-117); Anion Gap 10 (5-15); BUN 31 mg/dL (7-18); BUN/Creat Ratio 12.1 RATIO (10-20); CRP < 2.90 mg/L (0.0-3.0); Calcium,Total 9.9 mg/dL (8.5-10.1); Chloride 97 mmol/L (98-107); Creatinine, Serum 2.57 mg/dL (0.70-1.30); EST Glomerular Filtration Rate 27 mL/min (>60); Est Glom Filt Rate - Afr Amer 33 mL/min (>60); Globulin 3.3 g/dL (2.2-4.2); Glucose 181 mg/dL (74-106); Lipase 162 U/L (13-75); Protein, Total 7.7 g/dL (6.4-8.2); Sodium Level 133 mmol/L (136-145)
== END | disposition home or self-care (01) ==
LOC: MTLAB 13:34
PROVIDERS: PCP Family Medicine; Referring Provider Family Medicine; Visit Provider Family Medicine
DX: R10.9 Unspecified abdominal pain (principal)
CPT/HCPCS: 36415; 80053; 83690; 85025; 85652; 86140

== ENCOUNTER → 2023-10-04 | Outpatient (CLI) | payer OTHER, SELFPAY ==
[2023-10-04 17:52] LABS: ALB/GLOB Ratio 1.2 RATIO (0.9-2.4); AST(SGOT) 27 U/L (15-37); Alanine Aminotransfer ALT/SGPT 33 U/L (16-61); Albumin, Serum 4.1 g/dL (3.2-5.0); Alkaline Phosphatase 37 U/L (45-117); Anion Gap 7 (5-15); BUN 19 mg/dL (7-18); BUN/Creat Ratio 8.1 RATIO (10-20); Calcium,Total 9.7 mg/dL (8.5-10.1); Chloride 101 mmol/L (98-107); Creatinine, Serum 2.34 mg/dL (0.70-1.30); EST Glomerular Filtration Rate 30 mL/min (>60); Est Glom Filt Rate - Afr Amer 36 mL/min (>60); Globulin 3.3 g/dL (2.2-4.2); Glucose 165 mg/dL (74-106); Potassium 3.5 mmol/L (3.5-5.1); Protein, Total 7.4 g/dL (6.4-8.2); Sodium Level 136 mmol/L (136-145)
== END | disposition home or self-care (01) ==
LOC: BFHLAB 16:06
PROVIDERS: PCP Family Medicine; Visit Provider Family Medicine
DX: N17.9 Acute kidney failure, unspecified (principal); R17 Unspecified jaundice
CPT/HCPCS: 36415; 80053

== ENCOUNTER → 2023-10-11 | Outpatient (CLI) | payer OTHER, SELFPAY ==
--- NOTE | 2023-10-11 06:56 | CT_ITS ---
STUDY: CT ABDOMEN AND PELVIS WITH CONTRAST REASON FOR EXAM: Male, 63 years old. ABD PAIN, VOMITING WITH ABNORMAL WEIGHT LOSS RADIATION DOSAGE (If Supplied By Facility): CTDIvol = ( 14.35 ) mGy, DLP = ( 1182.05 ) mGycm TECHNIQUE: Transaxial images were obtained from the dome of the diaphragm to the symphysis pubis with oral contrast. Oral and amp; IV Readi-CAT and amp; 75mL Isovue-300 was administered. Sagittal and coronal images were reconstructed. Individualized dose optimization techniques were used for this CT. COMPARISON: Comparison is made with prior study May 21, 2023. FINDINGS: Minimal degree of a bibasilar dependent atelectasis. Coronary artery calcification. Normal liver. The patient is status post cholecystectomy. Normal spleen. Normal pancreas. Normal bilateral adrenal glands. Normal right kidney. Normal left kidney. Normal visualized stomach. Normal small intestine. There are scattered colonic diverticula consistent with diverticulosis. Moderate amount of fecal material is seen in the colon. The appendix is visualized and appears normal. There is scattered atherosclerotic calcification of the abdominal aorta, without a demonstrated aneurysm. Normal inferior vena cava. There is small retroperitoneal lymphadenopathy with enlarged nodes no greater than 10mm in the short axis diameter. Normal urinary bladder. The prostate measures 4.3 cm x 5.4 cm. Small benign-appearing bilateral inguinal lymph nodes. There are degenerative changes of the visualized lumbar spine. CT/Abdomen/Pelvis WITH Contrast IMPRESSION: Status post cholecystectomy. Scattered sigmoid diverticula. Electronically Signed: Feng Neri MD at 9:40 EDT ,
== END | disposition home or self-care (01) ==
PROVIDERS: PCP Family Medicine; Referring Provider Family Medicine; Visit Provider Family Medicine
DX: R10.9 Unspecified abdominal pain (principal); R63.4 Abnormal weight loss; R11.10 Vomiting, unspecified
CPT/HCPCS: 74177; Q9967

== ENCOUNTER → 2023-10-23 | Outpatient (CLI) | payer OTHER, SELFPAY ==
[2023-10-23 13:41] LABS: Anion Gap 7 (5-15); BUN 10 mg/dL (7-18); BUN/Creat Ratio 10.7 RATIO (10-20); Calcium,Total 9.2 mg/dL (8.5-10.1); Chloride 108 mmol/L (98-107); Creatinine, Serum 0.93 mg/dL (0.70-1.30); EST Glomerular Filtration Rate 87 mL/min (>60); Est Glom Filt Rate - Afr Amer 105 mL/min (>60); Glucose 164 mg/dL (74-106); Potassium 4.1 mmol/L (3.5-5.1); Sodium Level 138 mmol/L (136-145)
== END | disposition home or self-care (01) ==
LOC: BFHLAB 09:19
PROVIDERS: PCP Family Medicine; Referring Provider Family Medicine; Visit Provider Family Medicine
DX: N17.9 Acute kidney failure, unspecified (principal)
CPT/HCPCS: 36415; 80048

== ENCOUNTER 2024-04-05 12:35 | Emergency (ER) | payer OTHER, SELFPAY ==
[2024-04-05 12:36] VITALS: BP 155/99; PULSE 97; RESP 18; TEMP 36.6; O2SAT 98; BMI 36.6
--- NOTE | 2024-04-05 13:02 | CT_ITS ---
STUDY: CT Abdomen And Pelvis W/ Contrast Injection 04/05/2024 2:11 PM REASON FOR EXAM: Male, 64 years old. Abdominal pain abdominal pain Individualized dose optimization techniques were used for this CT. COMPARISON: 10.11.23 TECHNIQUE: CT Abdomen And Pelvis W/ Contrast Injection IV 100mL Isovue-370 FINDINGS: There are atherosclerotic calcifications of visualized coronary arteries. The visualized portions of the heart are within normal limits. Normal liver. There are surgical clips in the gallbladder fossa consistent with a prior cholecystectomy. Normal spleen. Normal pancreas. Normal bilateral adrenal glands. No acute findings of the right kidney. No acute findings of the left kidney. Normal visualized stomach. Normal small intestine. 6.1 mm nodule in the proximal sigmoid colon. This may be a fecalith. However, a polyp cannot be excluded. Recommend colonoscopy. Series 601 image 54. Series 2 image 99. The appendix is visualized and appears normal. There are calcifications of the abdominal aorta. This is consistent for atherosclerotic disease. There is NO abdominal aortic aneurysm. Vascular workup can be obtained based on clinical correlation. Normal inferior vena cava. Subcentimeter mesenteric lymph nodes. Normal urinary bladder. Normal abdominal wall. There are diffuse degenerative changes of the visualized lumbar spine. Stable L1 sclerotic lesion. CT/Abdomen/Pelvis W IV Cont ONLY IMPRESSION: (NOT LISTED IN ORDER OF SIGNIFICANCE) There are no acute findings. 6.1 mm nodule in the proximal sigmoid colon. This may be a fecalith. However, a polyp cannot be excluded. Recommend colonoscopy. Other findings as above. Electronically Signed: Andres Strong MD at 14:15 EDT ,
--- NOTE | 2024-04-05 13:12 | EDS_ITS ---
HPI <MARIS Weber - Last Filed: 04/05/24 14:56> History of Present Illness Chief Complaint: Nausea/Vomiting Narrative Narrative: Patient is a 64-year-old male with history of hypertension, GERD, hyperlipidemia, diabetes who presents to the emergency department 4 days of nausea and vomiting. Pay states has been having some left-sided abdominal pain, and now he is just hurting because of bile. Patient denies any diarrhea, he states he has some decreased gas. Denies any fever or chills. Patient does have history of surgical to his abdomen, patient did have a cholecystectomy multiple years ago. PFS <MARIS Weber - Last Filed: 04/05/24 14:56> [facility] Medical History Former tobacco use GERD (gastroesophageal reflux disease) Hypertension Obesity JUANA (obstructive sleep apnea) Type 2 diabetes mellitus Home Medications ?Medication ?Instructions ?Recorded ?Last Taken ?Type pantoprazole 40 mg tablet,delayed 40 mg PO BID 30 days #60 tabs 12/14/22 Unknown Rx release (Protonix) amlodipine 5 mg tablet 5 mg PO DAILY 04/05/24 Unknown History dicyclomine 20 mg tablet 20 mg PO TID #20 tabs 04/05/24 Unknown Rx insulin glargine 100 unit/mL (3 20 unit subcut DAILY 04/05/24 Unknown History mL) subcutaneous pen (Basaglar KwikPen U-100 Insulin) ondansetron 4 mg disintegrating 4 mg PO Q8H PRN PRN Nausea #10 tabs 04/05/24 Unknown Rx tablet rosuvastatin 20 mg tablet 20 mg PO DAILY 04/05/24 Unknown History tirzepatide 7.5 mg/0.5 mL 7.5 mg subcut QWEEK 04/05/24 Unknown History subcutaneous pen injector (Mounjaro) Allergy/AdvReac Type Severity Reaction Status Date / Time No Known Allergies Allergy Verified 04/05/24 12:36 Family History Mother Diabetes Heart disease Cancer Father No problems noted. Surgical History History of cholecystectomy History of surgery on lower extremity Social History household members: other details: Notes his son lives with him. Smoking Status: Former smoker alcohol intake: never substance use type: does not use ROS <MARIS Weber - Last Filed: 04/05/24 14:56> ROS ED ROS Narrative Constitutional: Negative for fever, chills, weight loss, weakness Eyes: Negative for vision loss, vision change, double vision ENT: Negative for any sore throat, ear pain, congestion Cardiovascular: Negative for any chest pain, tightness, palpitations Respiratory: Negative for any cough, sputum production, hemoptysis, dyspnea, dyspnea on exertion, orthopnea Gastrointestinal: Negative for any diarrhea, constipation, blood in stool, blood in vomit. Positive for abdominal pain, nausea and vomiting : Negative for any urinary frequency, dysuria, retention, blood in urine Muscle skeletal: Negative for any neck pain, back pain Neurological: Negative for any headache, syncope, dizziness Skin: Negative for any rashes, itching, abrasions, lacerations Psychiatric: Negative for any depression, anxiety, stress, suicidal ideation, homicidal ideation Hematologic: Negative for any excessive bruising, easy bleeding EXAM <MARIS Weber - Last Filed: 04/05/24 14:56> Physical Exam Narrative Exam Narrative: Vital signs reviewed. HEET: Head normocephalic atraumatic, TMs clear bilaterally. Posterior pharynx is clear, moist mucous membranes. Nares clear bilaterally. Neck: Supple with no lymphadenopathy or tenderness. No signs of meningismus. Cardiac: Regular rate and rhythm no murmurs gallops or rubs, equal peripheral pulses bilaterally. Respiratory: Lungs clear to auscultation bilaterally. No chest tenderness. Abdomen: Soft, nondistended. No abdominal bruit or pulsatile masses. No hepatosplenomegaly. Patient did have some abdominal discomfort on palpation more towards the left lower quadrant. No peritoneal signs. Extremities: No peripheral edema, no signs of gross trauma or deformity. Active full range of motion of all extremities. Neuro: Cranial nerves II through XII intact, no focal neurological deficits. Skin: Clean dry and intact with no rash, purpura, petechiae, vesicles or pustules. Backs/flank: No CVA tenderness, no midline spinal tenderness, no deformity. Psych: Normal mood and affect. No SI, HI or acute psychosis. Const Vital Signs: 04/05/24 12:36 04/05/24 14:16 Temperature 97.8 F 98.5 F Temperature Source Oral Oral Pulse Rate 97 99 Respiratory Rate 18 18 Blood Pressure 155/99 H 163/97 H Blood Pressure Mean 117 119 Pulse Ox 98 98 Oxygen Delivery Method Room Air Room Air <Dr. Ej Elliott MD - Last Filed: 04/05/24 13:48> Physical Exam Const Vital Signs: 04/05/24 12:36 04/05/24 14:16 Temperature 97.8 F 98.5 F Temperature Source Oral Oral Pulse Rate 97 99 Respiratory Rate 18 18 Blood Pressure 155/99 H 163/97 H Blood Pressure Mean 117 119 Pulse Ox 98 98 Oxygen Delivery Method Room Air Room Air MDM <MARIS Weber - Last Filed: 04/05/24 14:56> MDM Lab Data Labs: Laboratory Results - last 24 hr 04/05/24 12:50 WBC 7.2 RBC 4.51 L Hgb 14.1 Hct 40.4 MCV 89.6 MCH 31.3 MCHC 34.9 RDW Std Deviation 38.0 RDW Coeff of Billy 11.7 Plt Count 193 MPV 10.4 Immature Gran % (Auto) 0.400 Neut % (Auto) 79.1 H Lymph % (Auto) 14.0 L [place] % (Auto) 5.8 Eos % (Auto) 0.0 Baso % (Auto) 0.7 Absolute Neuts (auto) 5.7 Absolute Lymphs (auto) 1.01 Nucleated RBC % 0 Sodium 139 Potassium 4.1 Chloride 108 H Carbon Dioxide 25.0 Anion Gap 6 BUN 17 Creatinine 1.06 Estim Creat Clear Calc 93.73 Est GFR (MDRD) Af Amer 91 Est GFR (MDRD) Non-Af 75 BUN/Creatinine Ratio 16.0 Glucose 216 H Calcium 9.7 Total Bilirubin 1.10 H AST 26 ALT 31 Alkaline Phosphatase 44 L Total Protein 7.6 Albumin 4.0 Globulin 3.6 Albumin/Globulin Ratio 1.1 Lipase 77 H Radiography Diagnostic Testing: Clinical Impression(s) from Imaging Studies Abdomen/Pelvis CT 04/05/24 13:02 IMPRESSION: (NOT LISTED IN ORDER OF SIGNIFICANCE) There are no acute findings. 6.1 mm nodule in the proximal sigmoid colon. This may be a fecalith. However, a polyp cannot be excluded. Recommend colonoscopy. Other findings as above. Electronically Signed: Andres Strong MD at 14:15 EDT , Treatment and Re-Evaluation :: Differential diagnosis includes however is not limited to: Colitis, diverticulitis, bowel obstruction, GI virus, dehydration, DKA Patient appears to be in no obvious distress, patient does look like he does not feel well. Patient looks nontoxic vital signs are stable. Presenting to the emergency department with complaints of nausea, vomiting, abdominal pain for last 4 days. Abdominal workup will be completed, CBC CMP lipase, abdominal pel vis CT. Patient given IV fluids, Toradol, IM Bentyl. All radiologic examinations were read, reviewed by the emergency department attending. From these reads, a plan of care will be put in place. Patient's CBC was unremarkable, patient's chemistries show a slight hyperglycemia with a glucose level 216, creatinine within normal limits. Patient's lipase slightly elevated 77 however patient has been elevated [address] scan of the abdomen pelvis shows a nodule in the proximal sigmoid colon, this may be a fecalith, no other acute process. Patient will be redosed with Reglan, will be discharged home and instructed to advance diet as tolerated. All questions were answered, patient stable for discharge. There is no evidence suspect any surgical emergency. <Dr. Ej Elliott MD - Last Filed: 04/05/24 13:48> [facility] Narrative Medical decision making narrative: I have personally performed a face to face assessment of the patient and have reviewed the [facility] Note. I performed a substantive portion of the visit including all aspects of the following. My greer findings include: History is 64-year-old male with 4-day history of nausea and vomiting. No diarrhea. No severe abdominal pain. No fever or dysuria. Said he just feels like he has been abdominal cramping. Prior cholecystectomy. Exam is [well-appearing six 4-year-old gentleman. Vital signs are stable afebrile. H EENT exam unremarkable. Neck nontender. Lungs clear. Heart regular rhythm rate about 95 no murmur. Chest wall ribs nontender. Abdomen soft, nontender, nondistended normal bowel sounds without peritoneal signs. Soft flat. No hernia or mass. No obstruction. No localizing tenderness. Moving all 4 extremities. Nontender no edema. Back nontender. Neurologically is awake and alert.] Medical Decision Making [64-year-old gentleman with nausea vomiting for 4 days. IV fluids and Zofran. CAT scan labs.] Other additions or changes: [None] History & Record Review Discussion w/independent historian: Patient Lab Data Attestation: I reviewed the patient's lab results. Lab results narrative: CBC unremarkable. White count of 7. H&H 14 and 40. Platelets 193. Electrolytes show gap 6. Normal BUN of 17 creatinine of 1. Glucose 216. Liver enzymes are normal. Lipase is only mildly elevated at 77. Labs: Laboratory Results - last 24 hr 04/05/24 12:50 WBC 7.2 RBC 4.51 L Hgb 14.1 Hct 40.4 MCV 89.6 MCH 31.3 MCHC 34.9 RDW Std Deviation 38.0 RDW Coeff of Billy 11.7 Plt Count 193 MPV 10.4 Immature Gran % (Auto) 0.400 Neut % (Auto) 79.1 H Lymph % (Auto) 14.0 L [place] % (Auto) 5.8 Eos % (Auto) 0.0 Baso % (Auto) 0.7 Absolute Neuts (auto) 5.7 Absolute Lymphs (auto) 1.01 Nucleated RBC % 0 Sodium 139 Potassium 4.1 Chloride 108 H Carbon Dioxide 25.0 Anion Gap 6 BUN 17 Creatinine 1.06 Estim Creat Clear Calc 93.73 Est GFR (MDRD) Af Amer 91 Est GFR (MDRD) Non-Af 75 BUN/Creatinine Ratio 16.0 Glucose 216 H Calcium 9.7 Total Bilirubin 1.10 H AST 26 ALT 31 Alkaline Phosphatase 44 L Total Protein 7.6 Albumin 4.0 Globulin 3.6 Albumin/Globulin Ratio 1.1 Lipase 77 H Radiography Diagnostic Testing: Clinical Impression(s) from Imaging Studies Abdomen/Pelvis CT 04/05/24 13:02 IMPRESSION: (NOT LISTED IN ORDER OF SIGNIFICANCE) There are no acute findings. 6.1 mm nodule in the proximal sigmoid colon. This may be a fecalith. However, a polyp cannot be excluded. Recommend colonoscopy. Other findings as above. Electronically Signed: Andres Strong MD at 14:15 EDT , Discharge Plan Triage Chief Complaint: Nausea/Vomiting ED Midlevel Provider: David Barrett ED Provider: Ej Elliott Dx/Rx/DC Orders Clinical Impression: Gastroenteritis Instructions: ED Gastritis (Adult) Prescriptions: New ondansetron 4 mg tablet,disintegrating 4 mg PO Q8H PRN PRN (Reason: Nausea) Qty: 10 0RF dicyclomine 20 mg tablet 20 mg PO TID Qty: 20 0RF No Action pantoprazole [Protonix] 40 mg tablet,delayed release (DR/EC) 40 mg PO BID 30 Days Qty: 60 1RF amlodipine 5 mg tablet 5 mg PO DAILY rosuvastatin 20 mg tablet 20 mg PO DAILY insulin glargine [Basaglar KwikPen U-100 Insulin] 100 unit/mL (3 mL) insulin pen 20 unit subcut DAILY Mounjaro 7.5 mg/0.5 mL pen injector 7.5 mg subcut QWEEK Primary Care Provider: Evans Napier Referrals: Evans Napier, [Primary Care Provider] - Activity Restrictions/Additional Instructions: Please advance her diet as tolerated. He did have a small nodule in your colon, please talk to your GI specialist, time for repeat colonoscopy. Print Language: [place] Disposition Disposition: Home, Self Care
[2024-04-05] MEDS: Dicyclomine 20 MG/2 ML Vial IM (13:19)
[2024-04-05] MEDS: Ondansetron 4 MG/2 ML Vial IV (13:20)
[2024-04-05] MEDS: Ketorolac 15 MG/ML Vial IV (13:20)
[2024-04-05] MEDS: 0.9% Normal Saline (1000mL) 1,000 ML 999 ML IV (13:20)
[2024-04-05 13:22] LABS: Absolute Lymphocyte Count 1.01 X10^3/uL (0.83-4.51); Absolute Neutrophil Count 5.7 X10^3/uL (2.0-7.7); Basophil# 0.05 X10^3/uL; Basophil% 0.7 % (0-1); Hematocrit 40.4 % (40-54); Hemoglobin 14.1 g/dL (13.0-16.5); Lymphocyte # 1.01 X10^3/ul (0.83-4.51); Mean Corp Hgb Conc 34.9 g/dL (32-36); Mean Corpuscular Hgb 31.3 pg (27.0-32.0); Mean Corpuscular Volume 89.6 fL (80-94); Mean Platelet Vol. 10.4 fl (6.2-12.0); Monocyte# 0.42 X10^3/uL; Monocyte% 5.8 % (0-10); NRBC Flagged by Analyzer 0 % (0-5); Neutrophil # 5.68 X10^3/uL (2.7-7.7); Neutrophil % 79.1 % (47-70); Platelet Count 193 K/mm3 (150-450); RBC Distribution Width CV 11.7 % (11.6-14.6); Red Blood Count 4.51 M/mm3 (4.6-6.2); White Blood Count 7.2 K/mm3 (4.4-11.0)
[2024-04-05 13:38] LABS: ALB/GLOB Ratio 1.1 RATIO (0.9-2.4); AST(SGOT) 26 U/L (15-37); Alanine Aminotransfer ALT/SGPT 31 U/L (16-61); Alkaline Phosphatase 44 U/L (45-117); Anion Gap 6 (5-15); BUN 17 mg/dL (7-18); Calcium,Total 9.7 mg/dL (8.5-10.1); Chloride 108 mmol/L (98-107); Creatinine, Serum 1.06 mg/dL (0.70-1.30); EST Glomerular Filtration Rate 75 mL/min (>60); Est Glom Filt Rate - Afr Amer 91 mL/min (>60); Estimated Creatinine Clearance 93.73 ml/min; Globulin 3.6 g/dL (2.2-4.2); Glucose 216 mg/dL (74-106); Lipase 77 U/L (13-75); Potassium 4.1 mmol/L (3.5-5.1); Protein, Total 7.6 g/dL (6.4-8.2); Sodium Level 139 mmol/L (136-145)
[2024-04-05 14:16] VITALS: BP 163/97; PULSE 99; RESP 18; TEMP 36.9; O2SAT 98
[2024-04-05 14:55] LABS: Mucous, Urine 0 SEEN /hpf (<or=2+); Squamous Epithelial Cells - UA 0 SEEN /hpf (0-5)
[2024-04-05 14:56] LABS: Color, Urine Straw (Yellow); Glucose, Dipstick 100 mg/dl (Normal); Ketone-Dipstick 15 mg/dl (Negative); Leukocyte Esterase-Dipstick Negative /ul (Negative); Nitrite-Dipstick Negative (Negative); Occult Blood-Urine 25 /ul (Negative); Protein-Dipstick 500 mg/dl (Negative); Urine Bilirubin Dipstick Negative (Negative); Urine Clarity Clear (Clear); Urine Urobilinogen Normal (Normal)
[2024-04-05 15:05] LABS: Bacteria 1+ /hpf (None Seen); Hyaline Cast 0-5 SEEN /lpf (0-5); Red Blood Cells-Urine 0-5 SEEN /hpf (0-5); White Blood Cells 5-10 SEEN /hpf (0-5)
[2024-04-05] MEDS: Metoclopramide 10 MG/2 ML Vial IV (15:09)
[2024-04-05 15:24] VITALS: BP 155/78; PULSE 89; RESP 16; TEMP 36.6; O2SAT 96
== END 2024-04-05 15:25 | disposition home or self-care (01) ==
PROVIDERS: Nurse Practitioner; Emergency Provider Emergency Medicine; PCP Family Medicine; Visit Provider Emergency Medicine
DX: K52.9 Noninfective gastroenteritis and colitis, unspecified (principal); E11.65 Type 2 diabetes mellitus with hyperglycemia; Z79.4 Long term (current) use of insulin; K63.89 Other specified diseases of intestine; I10 Essential (primary) hypertension; K21.9 Gastro-esophageal reflux disease without esophagitis; E66.9 Obesity, unspecified; E78.5 Hyperlipidemia, unspecified; G47.33 Obstructive sleep apnea (adult) (pediatric); Z90.49 Acquired absence of other specified parts of digestive tract; Z79.85 Long-term (current) use of injectable non-insulin antidiabetic drugs; Z79.899 Other long term (current) drug therapy; Z87.891 Personal history of nicotine dependence
CPT/HCPCS: 74177; 80053; 81001; 83690; 85025; 96361; 96372; 96374; 96375; 99284; J7030; Q9967; A4216; J2405

== ENCOUNTER → 2024-04-09 | Outpatient (CLI) | payer OTHER, SELFPAY ==
[2024-04-09 12:27] LABS: Absolute Lymphocyte Count 1.54 X10^3/uL (0.83-4.51); Absolute Neutrophil Count 6.4 X10^3/uL (2.0-7.7); Basophil# 0.07 X10^3/uL; Basophil% 0.8 % (0-1); Eosinophil# 0.01 X10^3/uL; Eosinophils% 0.1 % (0-5); Hemoglobin 15.8 g/dL (13.0-16.5); Lymphocyte # 1.54 X10^3/ul (0.83-4.51); Lymphocyte % 17.4 % (19-41); Mean Corp Hgb Conc 35.9 g/dL (32-36); Mean Corpuscular Volume 89.1 fL (80-94); NRBC Flagged by Analyzer 0 % (0-5); Neutrophil # 6.38 X10^3/uL (2.7-7.7); Neutrophil % 72.2 % (47-70); Platelet Count 220 K/mm3 (150-450); RBC Distribution Width CV 11.8 % (11.6-14.6); RBC Distribution Width SD 38.2 fl (35.1-43.9); Red Blood Count 4.94 M/mm3 (4.6-6.2); White Blood Count 8.8 K/mm3 (4.4-11.0)
[2024-04-09 13:00] LABS: ALB/GLOB Ratio 1.1 RATIO (0.9-2.4); AST(SGOT) 18 U/L (15-37); Alanine Aminotransfer ALT/SGPT 25 U/L (16-61); Alkaline Phosphatase 44 U/L (45-117); Anion Gap 8 (5-15); BUN 31 mg/dL (7-18); BUN/Creat Ratio 20.5 RATIO (10-20); Calcium,Total 9.9 mg/dL (8.5-10.1); Chloride 102 mmol/L (98-107); Creatinine, Serum 1.51 mg/dL (0.70-1.30); EST Glomerular Filtration Rate 50 mL/min (>60); Est Glom Filt Rate - Afr Amer 60 mL/min (>60); Globulin 3.8 g/dL (2.2-4.2); Glucose 189 mg/dL (74-106); Protein, Total 7.8 g/dL (6.4-8.2); Sodium Level 134 mmol/L (136-145)
== END | disposition home or self-care (01) ==
LOC: BFHLAB 09:19
PROVIDERS: PCP Family Medicine; Referring Provider Family Medicine; Visit Provider Family Medicine
DX: R10.9 Unspecified abdominal pain (principal)
CPT/HCPCS: 36415; 80053; 85025

== ENCOUNTER 2024-06-09 17:18 | Emergency (ER) | payer OTHER, SELFPAY ==
[2024-06-09 17:20] VITALS: BP 137/100; PULSE 73; RESP 18; TEMP 36.8; O2SAT 98; BMI 34.8
[2024-06-09 18:40] VITALS: BP 143/98; PULSE 87; RESP 16; O2SAT 98
--- NOTE | 2024-06-09 19:14 | EKG12_ITS ---
Test Reason : DYSRHYTHMIA Blood Pressure : */* mmHG Vent. Rate : 84 BPM Atrial Rate : 84 BPM P-R Int : 192 ms QRS Dur : 100 ms QT Int : 400 ms P-R-T Axes : 40 -33 62 degrees QTcB Int : 472 ms Sinus rhythm with Premature atrial complexes Left axis deviation Incomplete right bundle branch block Moderate voltage criteria for LVH, may be normal variant ( R in aVL , Kevin product ) Septal infarct , age undetermined Abnormal ECG Confirmed by TREVA LYNN, MARIA DEL ROSARIO ([id number]), society editor ANAM PELLETIER ([id number]) on 06/11/2024 6:12:56 AM Referred By: Confirmed By: MARIA DEL ROSARIO TILLEY MD
--- NOTE | 2024-06-09 19:29 | CT_ITS ---
STUDY: CT ABDOMEN AND PELVIS WITH CONTRAST REASON FOR EXAM: Male, 64 years old. nausea and vomiting RADIATION DOSAGE (If Supplied By Facility): CTDIvol = ( 18.36 ) mGy, DLP = ( 1354.99 ) mGycm TECHNIQUE: Transaxial images were obtained from the dome of the diaphragm to the symphysis pubis without oral contrast. IV 100mL Isovue-300 was administered. Sagittal and coronal images were reconstructed. Individualized dose optimization techniques were used for this CT. COMPARISON: None. FINDINGS: The visualized lung bases are unremarkable. The visualized portions of the heart are within normal limits. Normal liver. Nonvisualization of the gallbladder. No dilatation of extrahepatic biliary system. Normal spleen. Normal pancreas. Normal bilateral adrenal glands. Possible punctate calculi in the right kidney. Normal left kidney. Normal visualized stomach. Normal small intestine. Normal colon. The appendix is visualized and appears normal. Normal abdominal aorta. Normal inferior vena cava. Normal retroperitoneum. Normal urinary bladder. Normal abdominal wall. Normal osseous structures. CT/Abdomen/Pelvis W IV Cont ONLY IMPRESSION: Possible punctate calculi in the right kidney. Electronically Signed: Juwan Marroquin DO at 21:19 EST Reading Location ID and State: [facility] / [place] Tel [phone], Service support ,
[2024-06-09 20:14] LABS: Absolute Lymphocyte Count 2.41 X10^3/uL (0.83-4.51); Absolute Neutrophil Count 5.5 X10^3/uL (2.0-7.7); Basophil# 0.05 X10^3/uL; Basophil% 0.6 % (0-1); Eosinophil# 0.01 X10^3/uL; Eosinophils% 0.1 % (0-5); Hematocrit 42.2 % (40-54); Hemoglobin 15.1 g/dL (13.0-16.5); Lymphocyte # 2.41 X10^3/ul (0.83-4.51); Lymphocyte % 27.3 % (19-41); Mean Corp Hgb Conc 35.8 g/dL (32-36); Mean Corpuscular Hgb 31.5 pg (27.0-32.0); Mean Corpuscular Volume 88.1 fL (80-94); Mean Platelet Vol. 10.8 fl (6.2-12.0); Monocyte# 0.86 X10^3/uL; Monocyte% 9.8 % (0-10); NRBC Flagged by Analyzer 0 % (0-5); Neutrophil # 5.46 X10^3/uL (2.7-7.7); Neutrophil % 61.9 % (47-70); Platelet Count 201 K/mm3 (150-450); RBC Distribution Width CV 12.1 % (11.6-14.6); RBC Distribution Width SD 39.2 fl (35.1-43.9); Red Blood Count 4.79 M/mm3 (4.6-6.2); White Blood Count 8.8 K/mm3 (4.4-11.0)
[2024-06-09] MEDS: 0.9% Normal Saline (1000mL) 1,000 ML 999 ML IV (20:22)
[2024-06-09] MEDS: Ondansetron 4 MG/2 ML Vial IV (20:22)
[2024-06-09] MEDS: Morphine 4 MG/ML Syringe IV (20:22)
[2024-06-09 20:40] VITALS: BP 131/82; RESP 19
[2024-06-09 20:48] LABS: ALB/GLOB Ratio 1.2 RATIO (0.9-2.4); AST(SGOT) 13 U/L (15-37); Alanine Aminotransfer ALT/SGPT 25 U/L (16-61); Albumin, Serum 3.7 g/dL (3.2-5.0); Alkaline Phosphatase 41 U/L (45-117); Anion Gap 7 (5-15); BUN 38 mg/dL (7-18); BUN/Creat Ratio 29.7 RATIO (10-20); Calcium,Total 9.6 mg/dL (8.5-10.1); Chloride 101 mmol/L (98-107); Creatinine, Serum 1.28 mg/dL (0.70-1.30); EST Glomerular Filtration Rate 60 mL/min (>60); Est Glom Filt Rate - Afr Amer 73 mL/min (>60); Estimated Creatinine Clearance 75.65 ml/min; Globulin 3.2 g/dL (2.2-4.2); Glucose 155 mg/dL (74-106); Lipase 124 U/L (13-75); Potassium 3.7 mmol/L (3.5-5.1); Protein, Total 6.9 g/dL (6.4-8.2); Sodium Level 135 mmol/L (136-145)
[2024-06-09 21:35] LABS: Bacteria 0 SEEN /hpf (None Seen); Red Blood Cells-Urine 0 SEEN /hpf (0-5); Squamous Epithelial Cells - UA 0 SEEN /hpf (0-5)
[2024-06-09 21:38] LABS: Color, Urine Yellow (Yellow); Glucose, Dipstick Normal (Normal); Ketone-Dipstick Negative (Negative); Leukocyte Esterase-Dipstick Negative /ul (Negative); Nitrite-Dipstick Negative (Negative); Occult Blood-Urine 10 /ul (Negative); Protein-Dipstick 500 mg/dl (Negative); Specific Gravity, Urine 1.015 (1.002-1.030); Urine Bilirubin Dipstick Negative (Negative); Urine Clarity Clear (Clear); Urine Urobilinogen Normal (Normal)
[2024-06-09 21:58] LABS: Mucous, Urine 1+ /hpf (<or=2+); White Blood Cells 0-5 SEEN /hpf (0-5)
[2024-06-09 22:00] VITALS: BP 116/69; PULSE 83; O2SAT 96
--- NOTE | 2024-06-09 23:43 | EDS_ITS ---
HPI History of Present Illness Chief Complaint: Nausea/Vomiting Narrative Narrative: Patient is a 64-year-old male with history of diabetes mellitus and hypertension presenting with nausea vomiting for the past week as well as left-sided low back pain that radiates to his hip. Patient states his symptoms started around the same time but is not sure if they are related. States he felt a pinch in his left lower hip has had a hard time walking since. In addition he has developed nausea and vomiting and had multiple episodes of vomiting he describes as bilious. He says he is lost 20 pounds at least in the last week. He states he had a bowel movement yesterday that was more mucus. Denies any blood in his vomit or stool. Denies any fever or chills. Does have a history of prior cholecystectomy. He is also going to his chiropractor for his back pain. He was told by his chiropractor that is likely his SI joint. Denies any fevers does report some night sweats. No chest pain, shortness breath or difficulty breathing. Denies any bowel or bladder incontinence. Denies any saddle anesthesia. Denies any weakness of the legs. No other complaints or concerns reported at this time [facility] Medical History Former tobacco use Obesity GERD (gastroesophageal reflux disease) Hypertension Type 2 diabetes mellitus JUANA (obstructive sleep apnea) Home Medications ?Medication ?Instructions ?Recorded ?Last Taken ?Type pantoprazole 40 mg tablet,delayed 40 mg PO BID 30 days #60 tabs 12/14/22 Unknown Rx release (Protonix) amlodipine 5 mg tablet 5 mg PO DAILY 04/05/24 Unknown History dicyclomine 20 mg tablet 20 mg PO TID #20 tabs 04/05/24 Unknown Rx insulin glargine 100 unit/mL (3 20 unit subcut DAILY 04/05/24 Unknown History mL) subcutaneous pen (Basaglar KwikPen U-100 Insulin) ondansetron 4 mg disintegrating 4 mg PO Q8H PRN PRN Nausea #10 tabs 04/05/24 Unknown Rx tablet rosuvastatin 20 mg tablet 20 mg PO DAILY 04/05/24 Unknown History tirzepatide 7.5 mg/0.5 mL 7.5 mg subcut QWEEK 04/05/24 Unknown History subcutaneous pen injector (Mounjaro) ondansetron 4 mg disintegrating 4 mg PO Q8H PRN PRN Nausea #10 tabs 06/09/24 Unknown Rx tablet prednisone 20 mg tablet 40 mg (2 x 20 mg) PO DAILY #10 tabs 06/09/24 Unknown Rx Allergy/AdvReac Type Severity Reaction Status Date / Time No Known Allergies Allergy Verified 06/09/24 17:20 Family History Mother Diabetes Heart disease Cancer Father No problems noted. Surgical History History of surgery on lower extremity History of cholecystectomy Social History household members: other details: Notes his son lives with him. Smoking Status: Former smoker alcohol intake: never substance use type: does not use ROS ROS ED Constitutional Constitutional ED: Reports sweats; Denies chills or fever(s) Cardiovascular Cardiovascular: Denies chest pain Respiratory/Chest Respiratory/Chest: Denies cough Gastrointestinal Gastrointestinal: Reports diarrhea, nausea and vomiting; Denies abdominal pain or melena Genitourinary Genitourinary ED: Denies dysuria or urinary frequency Musculoskeletal Musculoskeletal: Reports back pain; Denies arthralgias or myalgias Integumentary Denies rash Neurologic Neurologic: Denies paresthesias or weakness Hematologic/Lymphatic Hematologic/Lymphatic: Denies easy bleeding or easy bruising EXAM Physical Exam Const Vital Signs: 06/09/24 17:20 06/09/24 18:40 06/09/24 20:40 Temperature 98.2 F Temperature Source Oral Pulse Rate 73 87 Respiratory Rate 18 16 19 H Blood Pressure 137/100 H 143/98 H 131/82 H Blood Pressure Mean 112 113 98 Pulse Ox 98 98 Oxygen Delivery Method Room Air Room Air 06/09/24 22:00 Temperature Temperature Source Pulse Rate 83 Respiratory Rate Blood Pressure 116/69 Blood Pressure Mean 84 Pulse Ox 96 Oxygen Delivery Method Positive well nourished and well developed General Appearance ED: well developed HEENT Reports dry mucous membranes Mouth ED: Yes dry mucous membranes Mouth: dry mucous membranes Eyes PERRL Neck supple Chest Wall inspection of chest normal and palpation of chest normal Resp normal respiratory effort and clear to auscultation bilaterally Cardio regular rate and regular rhythm GI normal to inspection, nondistended, normoactive bowel sounds and non-tender Auscultation: normoactive bowel sounds Palpation: soft; Negative for tender or guarding Back/Spine no CVA tenderness Back/Spine Narrative: Tenderness palpation of the left SI joint. Negative straight leg test bilaterally. Thoracic Spine / Upper Back: Negative for thoracic spinal tenderness Lumbar Spine / Lower Back: Negative for lumbar spinal tenderness Extremity normal to inspection Extremity Narrative: 2+ PT pulses General Extremety ED: Negative for edema General Extremity: Negative for edema Neuro oriented x3 Sensorium / Orientation: alert Motor Exam: Negative for general weakness Psych mental status grossly normal Skin no rashes or lesions noted and no wounds General Skin Exam: Negative for jaundice MDM MDM MDM Narrative Medical decision making narrative: Patient is evaluated for 1 week of low back pain as well as nausea and vomiting. This started around the same time but patient is not sure if they are related. His back pain is highly consistent with pain is SI joint is suspect is muscle skeletal. He is neuro vas intact does not have any red flag symptoms for cauda equina syndrome. Given his surgical history will obtain CT abdomen pelvis to rule out diverticulitis, small bowel obstruction, volvulus or other cause of his nausea and vomiting. Differential also includes gastroenteritis and gastroparesis. Patient is given IV fluids, morphine and Zofran. On repeat evaluation he states he is feeling much better. Lab including CBC, BMP, liver panel, lipase and urinalysis largely normal. He does not have a leukocytosis and his hemoglobin is at his baseline. Patient does not have an SHANIQUA and his creatinine is at his baseline (1.28). He is hyperglycemic with a glucose of 155 which is actually lower that he has been recently. Bilirubin is mildly elevated 1.50 but this appears chronic. No transaminitis present. Low suspicion for cho ledocholithiasis. Lipase is mildly elevated at [address] abdomen pelvis obtained does not show any acute process is not consistent with acute pancreatitis. There is a possible punctate calculi of the right kidney but I do not think this is related to his presentation today. Urinalysis does not show infection or ketones. Patient reevaluated feeling much better. Given p.o. challenge and tolerates. Will place on a course of prednisone for his back pain and given a prescription for Zofran for his stomach symptoms. Counseled on advancing liquid diet as tolerated. Given return precautions. Agrees to follow with primary care doctor. Discharged home in stable improved condition peer Lab Data Attestation: I reviewed the patient's lab results. Labs: Laboratory Results - last 24 hr 06/09/24 06/09/24 19:59 21:28 WBC 8.8 RBC 4.79 Hgb 15.1 Hct 42.2 MCV 88.1 MCH 31.5 MCHC 35.8 RDW Std Deviation 39.2 RDW Coeff of Billy 12.1 Plt Count 201 MPV 10.8 Immature Gran % (Auto) 0.300 Neut % (Auto) 61.9 Lymph % (Auto) 27.3 Rowan % (Auto) 9.8 Eos % (Auto) 0.1 Baso % (Auto) 0.6 Absolute Neuts (auto) 5.5 Absolute Lymphs (auto) 2.41 Nucleated RBC % 0 Sodium 135 L Potassium 3.7 Chloride 101 Carbon Dioxide 27.0 Anion Gap 7 BUN 38 H Creatinine 1.28 Estim Creat Clear Calc 75.65 Est GFR (MDRD) Af Amer 73 Est GFR (MDRD) Non-Af 60 BUN/Creatinine Ratio 29.7 H Glucose 155 H Calcium 9.6 Magnesium 2.0 Total Bilirubin 1.50 H AST 13 L ALT 25 Alkaline Phosphatase 41 L Total Protein 6.9 Albumin 3.7 Globulin 3.2 Albumin/Globulin Ratio 1.2 Lipase 124 H Urine Color Yellow Urine Clarity Clear Urine pH 6.0 Ur Specific Thorpe 1.015 Urine Protein 500 H Urine Glucose (UA) Normal Urine Ketones Negative Urine Occult Blood 10 H Urine Nitrite Negative Urine Bilirubin Negative Urine Urobilinogen Normal Ur Leukocyte Esterase Negative Urine RBC 0 SEEN Urine WBC 0-5 SEEN Ur Squamous Epith Cells 0 SEEN Urine Bacteria 0 SEEN Urine Mucus 1+ Radiography Diagnostic Testing: Clinical Impression(s) from Imaging Studies Abdomen/Pelvis CT 06/09/24 19:29 IMPRESSION: Possible punctate calculi in the right kidney. Electronically Signed: Juwan Marroquin DO at 21:19 EST , Discharge Plan Triage Chief Complaint: Nausea/Vomiting Other Complaint: Back ED Provider: Vandana Calhoun Dx/Rx/DC Orders Clinical Impression: Nausea and vomiting, Pain of left sacroiliac joint Instructions: ED Back Pain (Acute or Chronic), ED Diet Vomiting Diarrhea, ED FOOD POIS or G-ENTERITIS [id number] Prescriptions: New ondansetron 4 mg tablet,disintegrating 4 mg PO Q8H PRN PRN (Reason: Nausea) Qty: 10 0RF prednisone 20 mg tablet 40 mg PO DAILY Qty: 10 0RF No Action pantoprazole [Protonix] 40 mg tablet,delayed release (DR/EC) 40 mg PO BID 30 Days Qty: 60 1RF amlodipine 5 mg tablet 5 mg PO DAILY rosuvastatin 20 mg tablet 20 mg PO DAILY insulin glargine [Basaglar KwikPen U-100 Insulin] 100 unit/mL (3 mL) insulin pen 20 unit subcut DAILY Mounjaro 7.5 mg/0.5 mL pen injector 7.5 mg subcut QWEEK ondansetron 4 mg tablet,disintegrating 4 mg PO Q8H PRN PRN (Reason: Nausea) Qty: 10 0RF dicyclomine 20 mg tablet 20 mg PO TID Qty: 20 0RF Primary Care Provider: Evans Napier Referrals: Evans Napier DO [Primary Care Provider] - Activity Restrictions/Additional Instructions: Advance diet from liquids as tolerated. You been prescribed steroids to help with your back. He can continue Velbe a chiropractor. Print Language: Ukrainian Disposition Disposition: Home, Self Care
[2024-06-09 23:55] VITALS: BP 116/69; PULSE 83; RESP 19; TEMP 36.8; O2SAT 96
== END 2024-06-09 23:55 | disposition home or self-care (01) ==
PROVIDERS: Emergency Provider Emergency Medicine; PCP Family Medicine; Visit Provider Emergency Medicine
DX: R11.2 Nausea with vomiting, unspecified (principal); E11.9 Type 2 diabetes mellitus without complications; M53.3 Sacrococcygeal disorders, not elsewhere classified; Z87.891 Personal history of nicotine dependence
CPT/HCPCS: 74177; 80053; 81001; 83690; 83735; 85025; 93005; 96361; 96374; 96375; 99284; Q9967; J2405

== ENCOUNTER → 2024-07-03 | Outpatient (CLI) | payer OTHER, SELFPAY | END | disposition home or self-care (01) | LOC: LAB.FUTURE 08:02 | PROVIDERS: PCP Family Medicine; Visit Provider Family Medicine | DX: E11.9 Type 2 diabetes mellitus without complications (principal); Z12.5 Encounter for screening for malignant neoplasm of prostate ==

== ENCOUNTER 2024-11-19 20:51 | Emergency (ER) | payer OTHER, SELFPAY ==
[2024-11-19 20:52] VITALS: BP 188/83; PULSE 106; RESP 18; TEMP 36.4; O2SAT 99; BMI 37.6
[2024-11-19 20:54] VITALS: BP 188/83; PULSE 106; RESP 18; TEMP 36.4; O2SAT 99
[2024-11-19 21:15] LABS: Absolute Lymphocyte Count 1.08 X10^3/uL (0.83-4.51); Absolute Neutrophil Count 6.7 X10^3/uL (2.0-7.7); Basophil# 0.04 X10^3/uL; Basophil% 0.5 % (0-1); Hematocrit 43.6 % (40-54); Hemoglobin 15.6 g/dL (13.0-16.5); Lymphocyte # 1.08 X10^3/ul (0.83-4.51); Lymphocyte % 13.2 % (19-41); Mean Corp Hgb Conc 35.8 g/dL (32-36); Mean Corpuscular Hgb 31.7 pg (27.0-32.0); Mean Corpuscular Volume 88.6 fL (80-94); Mean Platelet Vol. 10.8 fl (6.2-12.0); Monocyte# 0.33 X10^3/uL; NRBC Flagged by Analyzer 0 % (0-5); Neutrophil # 6.69 X10^3/uL (2.7-7.7); Neutrophil % 81.8 % (47-70); Platelet Count 207 K/mm3 (150-450); RBC Distribution Width CV 11.8 % (11.6-14.6); RBC Distribution Width SD 37.7 fl (35.1-43.9); Red Blood Count 4.92 M/mm3 (4.6-6.2); White Blood Count 8.2 K/mm3 (4.4-11.0)
[2024-11-19 21:32] LABS: ALB/GLOB Ratio 1.5 RATIO (0.9-2.4); AST(SGOT) 28 U/L (<=37); Alanine Aminotransfer ALT/SGPT 24 U/L (<=46); Albumin, Serum 4.5 g/dL (3.4-4.8); Alkaline Phosphatase 50 U/L (40-129); Anion Gap 18 (5-15); BUN 20 mg/dL (4-19); BUN/Creat Ratio 17.3 RATIO (10-20); Calcium,Total 10.1 mg/dL (7.6-11.0); Carbon Dioxide 19.6 mmol/L (21.0-32.0); Chloride 100 mmol/L (98-108); Creatinine, Serum 1.17 mg/dL (0.70-1.20); EST Glomerular Filtration Rate 70 (>60); Estimated Creatinine Clearance 86.07 ml/min (50-250); Globulin 2.9 g/dL (2.2-4.2); Glucose 236 mg/dL (70-99); Lipase 36 U/L (13-75); Potassium 4.4 mmol/L (3.3-5.1); Protein, Total 7.4 g/dL (5.9-8.4); Sodium Level 138 mmol/L (133-145); Total Bilirubin 1.36 mg/dL (0.00-1.30)
[2024-11-19] MEDS: 0.9% Normal Saline (1000mL) 1,000 ML 1000 ML IV ×2 (22:09→23:29)
[2024-11-19] MEDS: Ondansetron 4 MG/2 ML Vial IV (22:10)
[2024-11-19] MEDS: Famotidine 200 MG/20 ML MDV 20 MG in 0.9% Normal Saline (Pres. free 8 ML 300 MG IV (22:10)
--- OUTSIDE RECORDS SUMMARY | 2024-11-19 22:19 | XMS RPT_ITS | CCD ---
Author Organization [facility] Care Team Providers Care Fur Nailer Name Role Phone Dr. Zayra Napier Primary Care Provider [phone] Dr. Rosanna Abraham Emergency Provider Dr. Kaet Carrion Admit Provider Dr. Kate Carrion Attending Provider Dr. Kate Carrion Other Provider Dr. Kate Carrion Referring Provider Dr. Mariela Narvaez Attending Provider Dr. Mariela Narvaez Other Provider Raúl, Dr. Waters Attending Provider Dr. Kate Carrion Referring Provider Dr. Marlon Esquivel Attending Provider Dr. Marvel Velez Referring Provider Dr. Mariela Narvaez Referring Provider Dr. Zayra Napier Referring Provider [phone] GEO Dale Attending Provider Dr. Wily Maldonado Emergency Provider Dr. David Renner Admit Provider Dr. David Renner Attending Provider Dr. David Renner Other Provider Dr. Zayra Napier Primary Care Provider [phone] Dr. Zayra Napier Referring Provider [phone] GEO Dale Attending Provider [phone] Wily Maldonado Emergency Provider [phone] Jud, Dr. Hernandez Admit Provider Dr. David Renner Attending Provider Dr. David Renner Other Provider Dr. Zayra Hinojosa Attending Provider Dr. Zayra Hinojosa Other Provider Dr. Zayra Napier Primary Care Provider Black, Zayra Attending Unavailable Black, Zayra Referring Unavailable Black, Zayra Primary Care Unavailable Black, Zayra Primary Care Unavailable Black, Zayra Attending Unavailable Black, Zayra Attending Unavailable Black, Zayra Referring Unavailable Black, Zayra Primary Care Unavailable Black, Zayra Attending Unavailable Black, Zayra Referring Unavailable Black, Zayra Primary Care Unavailable Vandana Calhoun Attending Unavailable Black, Zayra Primary Care Unavailable Earl, Ej Attending Unavailable Black, Zayra Primary Care Unavailable Wily Maldonado Attending Unavailable Black, Zayra Primary Care Unavailable Black, Zayra Attending Unavailable Black, Zayra Referring Unavailable Black, Zayra Primary Care Unavailable Black, Zayra Attending Unavailable Black, Zayra Primary Care Unavailable RIVAS LYNN, DR KOMAL Meredith Attending Unavailab le BLACK DO, DR ZAYRA Meredith Primary Care Unavailab le BLACK DO, DR ZAYRA Meredith Primary Care Unavailab jessy HATHAWAY MD, DR KOMAL Meredith Attending Unavailab le BLACK DO, DR IVERSON A Primary Care Unavailab jessy HATHAWAY MD, DR KOMAL Meredith Attending Unavailab le Medications Current Medications Medication Drug Class(es) Dates Sig (Normalized) Sig (Original) dicyclomine hydrochloride 20 mg oral tablet (13 sources) Anticholinergic Start: 12-08-2022 take 20 mg by mouth three times daily Dicyclomine Active 20 MG PO THREE TIMES A DAY December 08, 2022 12:00am Start: 02-15-2016 End: 12-09-2022 take 20 mg by mouth three times daily before mealtime Dicyclomine Discontinued 20 MG PO THREE TIMES DAILY BEFORE MEALS February 15, 2016 12:00am December 09, 2022 2:32pm Insulin Glargine-Yfgn (16 sources) Start: 03-11-2023 Insulin Glargi ne-Yfgn Active 0 SC DAILY March 10, 2023 11:00pm subcutaneously daily; sliding scale based on bg test result Start: 03-11-2023 Insulin Glargi ne-Yfgn Active 0 SC DAILY March 11, 2023 12:00am subcutaneously daily; sliding scale based on bg test result Start: 12-14-2022 End: 03-11-2023 Insulin Glargine-Yfgn Discon tinued 12 UNIT SC DAILY December 13, 2022 11:00pm March 11, 2023 9:12pm Start: 12-14-2022 End: 03-11-2023 Insulin Glargine-Yfgn Discon tinued 12 UNIT SC DAILY December 14, 2022 12:00am March 11, 2023 10:12pm Start: 12-14-2022 Insulin Glargi ne-Yfgn Active 12 UNIT SC DAILY December 14, 2022 12:00am Insulin Glargine-Yfgn (4 sources) Start: 03-11-2023 Insulin Glargi ne-Yfgn Active 0 SC DAILY March 11, 2023 12:00am subcutaneously daily; sliding scale based on bg test result Start: 03-11-2023 Insulin Glargi ne-Yfgn Active 0 SC DAILY March 10, 2023 11:00pm subcutaneously daily; sliding scale based on bg test result metFORMIN hydrochloride 500 mg oral tablet (20 sources) Biguanide Start: 03-11-2023 take 500 mg by mouth twice daily Metformin Active 500 MG PO TWICE A DAY March 11, 2023 12:00am Start: 09-28-2015 End: 12-09-2022 take 500 mg by mouth twice daily at mealtime Metformin Discontinued 500 MG PO TWICE DAILY WITH MEALS September 28, 2015 12:00am December 09, 2022 2:33pm pantoprazole 40 mg delayed release oral tablet (20 sources) Proton Pump Inhibitor Start: 12-14-2022 take 1 tablet by mouth twice daily Pantoprazole (Protonix) 40 mg tablet,delayed release (DR/EC) Active 40 MG PO TWICE A DAY December 14, 2022 12:00am Start: 11-22-2015 End: 12-09-2022 take 40 mg by mouth once daily Pantoprazole Discontinu ed 40 MG PO DAILY November 22, 2015 12:00am December 09, 2022 2:33pm sucralfate 1000 mg oral tablet (11 sources) Aluminum Complex Start: 03-07-2023 take 1 tablet by mouth twice daily Sucralfate (Carafate) 1 gram tablet Active 1 GM PO TWICE A DAY March 07, 2023 12:00am Start: 12-14-2022 take 1 g by mouth at bedtime S ucralfate Active 1 GM PO BEFORE MEALS AND AT BEDTIME 120 December 14, 2022 12:00am Completed/Discontinued Medications Medication Drug Class(es) Dates Sig (Normalized) Sig (Original) amLODIPine 10 mg oral tablet (11 sources) Dihydropyridine Calcium Channel Cayden Start: 12-14-2022 End: 03-11-2023 take 10 mg by mouth once daily Amlodipine Discontinued 10 MG PO DAILY 30 December 14, 2022 12:00am March 11, 2023 4:31pm amoxicillin 500 mg oral tablet (8 sources) Penicillin-class Antibacterial Start: 03-13-2023 End: 05-21-2023 take 500 mg by mouth three times daily Amoxicillin Discontinued 500 MG PO THREE TIMES A DAY March 13, 2023 12:00am May 21, 2023 7:20pm start in the afternoon on 03/13/23 azithromycin 500 mg oral tablet (12 sources) Macrolide Antimicrobial Start: 02-15-2016 End: 12-09-2022 take 1 tablet by mouth once daily Azithromycin (Zithromax) 500 MG tablet Discontinued 500 MG PO DAILY February 15, 2016 12:00am December 09, 2022 2:32pm magnesium citrate 58.2 mg/ml oral solution (12 sources) Start: 02-15-2016 End: 12-09-2022 take 1 mL by mouth once Magnesium Citrate Discontinued 300 ML PO ONE TIME February 15, 2016 12:00am December 09, 2022 2:32pm ondansetron 4 mg disintegrating oral tablet (20 sources) Serotonin-3 Receptor Antagonist Start: 02-15-2016 End: 08-13-2023 take 4 mg by mouth every eight hours as needed Ondansetron Discontinued 4 MG PO EVERY 8 HOURS NEEDED March 07, 2023 12:00am August 13, 2023 5:09am promethazine hydrochloride 25 mg oral tablet (20 sources) Phenothiazine Start: 03-07-2023 End: 08-13-2023 take 25 mg by mouth three times daily Promethazine Discontinued 25 MG PO THREE TIMES A DAY March 07, 2023 5:36pm August 13, 2023 5:09am Start: 02-08-2016 End: 12-09-2022 take 25 mg by mouth every six hours as needed Promethazine Discontinued 25 MG PO EVERY 6 HOURS NEEDED February 08, 2016 12:00am December 09, 2022 2:33pm Problems Active Problems Problem Classification Problem Date Documented Da te Episodic/Chronic Abdominal pain (20 sources) Recurrent abdominal pain; Translations: [Unspecified abdominal pain] Onset: 04-28-2024 09-28-2015 Episodic Diabetes mellitus without complication (20 sources) Diabetes mellitus; Translations: [Type 2 diabetes mellitus without complications] Onset: 07-24-2024 09-28-2015 Chronic Essential hypertension (12 sources) Hypertensive disorder; Translations: [Essential (primary) hypertension] 12-08-2022 Chronic Gastritis and duodenitis (14 sources) Gastritis; Translations: [Gastritis, unspecified, without bleeding] 12-14-2022 Episodic Gastroduodenal ulcer (except hemorrhage) (14 sources) Ulcer of duodenum; Translations: [Duodenal ulcer, unspecified as acute or chronic, without hemorrhage or perforation] 12-14-2022 Chronic Immunizations and screening for infectious disease (12 sources) Contact with or exposure to other viral diseases; Translations: [Exposure to COVID-19 virus] 03-15-2021 Episodic Nausea and vomiting (20 sources) Nausea and vomiting; Translations: [Nausea with vomiting, unspecified] Onset: 07-01-2024 12-08-2022 Episodic Noninfectious gastroenteritis (20 sources) Gastroenteritis; Translations: [Noninfective gastroenteritis and colitis, unspecified] 12-09-2022 Episodic Other and unspecified benign neoplasm (11 sources) Polyp of colon; Translations: [Polyp of colon] 12-14-2022 Episodic Other and unspecified benign neoplasm (3 sources) Polyp of colon; Translations: [Benign neoplasm of colon] 12-14-2022 Episodic Other gastrointestinal disorders (7 sources) Constipation; Translations: [Constipation, unspecified] 05-21-2023 Episodic Residual codes; unclassified (12 sources) Obstructive sleep apnea syndrome; Translations: [Obstructive sleep apnea (adult) (pediatric)] 12-08-2022 Chronic Viral infection (17 sources) Disease caused by 2019-nCoV; Translations: [COVID-19] 03-01-2023 Episodic Past or Other Problems Problem Classification Problem Date Documented Da te Episodic/Chronic Acute and unspecified renal failure (15 sources) Acute renal failure syndrome; Translations: [Acute kidney failure, unspecified] Onset: 10-31-2023 03-11-2023 Episodic Results Test Name Value Interpretation Reference Range Facility 12 Lead EKGon 06-09-2024 12 Lead EKG [facility] Cardi[facility] Services [address] [place] [address] 12 Lead EKG 06/09/24 1939 MR#: [id number] Acct: [id number] Name: MORENO VILLEGAS Rep #: [id number] : 1960 64 From: Marlon Esquivel MD Attending Dr: Status: DEP ER Ordering Dr: Vandana Calhoun DO Date: 06/09/24 Location: ED Sex: M C Admitted: Test Reason : DYSRHYTHMIA Blood Pressure : */* mmHG Vent. Rate : 84 BPM Atrial Rate : 84 BPM P-R Int : 192 ms QRS Dur : 100 ms QT Int : 400 ms P-R-T Axes : 40 -33 62 degrees QTcB Int : 472 ms Sinus rhythm with Premature atrial complexes Left axis deviation Incomplete right bundle branch block Moderate voltage criteria for LVH, may be normal variant ( R in aVL , Kevin product ) Septal infarct , age undetermined Abnormal ECG Confirmed by MARLON ESQUIVEL MD ([id number]), editorial clerk ANAM PELLETIER ([id number]) on 06/11/2024 6:12:56 AM Referred By: Confirmed By: MARLON ESQUIVEL MD 06/11/24 0612 Date Marlon Esquivel MD CC: Dr. Vandana Calhoun DO; Dr. Zayra Napier DO Signed Normal [facility] Abdomen/Pelvis W IV Cont ONL Yon 06-09-2024 Abdomen/Pelvis W IV Cont ONLY [facility] Imaging Services [address] [place] [address] Abdomen/Pelvis W IV Cont ONLY MR#: [id number] Acct: [id number] Name: MORENO VILLEGAS Rep #: [id number] : 1960 M 64 From: Juwan Marroquin DO PCP: Dr. Zayra Napier DO Status: REG ER Study: Abdomen/Pelvis W IV Cont ONLY Date of Exam: Exam# [id number] Ordering Dr: Vandana Calhoun DO [id number] STUDY: CT ABDOMEN AND PELVIS WITH CONTRAST REASON FOR EXAM: Male, 64 years old. nausea and vomiting RADIATION DOSAGE (If Supplied By Facility): CTDIvol = ( 18.36 ) mGy, DLP = ( 1354.99 ) mGycm TECHNIQUE: Transaxial images were obtained from the dome of the diaphragm to the symphysis pubis without oral contrast. IV 100mL Isovue-300 was administered. Sagittal and coronal images were reconstructed. Individualized dose optimization techniques were used for this CT. COMPARISON: None. FINDINGS: The visualized lung bases are unremarkable. The visualized portions of the heart are within normal limits. Normal liver. Nonvisualization of the gallbladder. No dilatation of extrahepatic biliary system. Normal spleen. Normal pancreas. Normal bilateral adrenal glands. Possible punctate calculi in the right kidney. Normal left kidney. Normal visualized stomach. Normal small intestine. Normal colon. The appendix is visualized and appears normal. Normal abdominal aorta. Normal inferior vena cava. Normal retroperitoneum. Normal urinary bladder. Normal abdominal wall. Normal osseous structures. CT/Abdomen/Pelvis W IV Cont ONLY IMPRESSION: Possible punctate calculi in the right kidney. Electronically Signed: Juwan Marroquin DO at 21:19 EST , CC: Dr. Vandana Calhoun, DO; Dr. Zayra Napier, DO [employer] Strategist: Signed Normal [facility] CBC W/Diff, Automatedon 12-3 Absolute Lymph 2.41 X10 3/uL Normal 0.83-4.51 [facility] Comment on above: Performed By: #### L 500.4050, L100.0100, L501.2450 #### [facility] [address] [place], [address] Absolute Neut 5.5 X10 3/uL Normal 2.0-7.7 [facility] Comment on above: Performed By: #### L 500.4050, L100.0100, L501.2450 #### [facility] [address] [place], [address] Basophils/100 WBC (Bld) 0.6 % Normal 0-1 [facility] Comment on above: Performed By: #### L 500.4050, L100.0100, L501.2450 #### [facility] [address] [place], [address] Eosinophils/100 WBC (Bld) 0.1 % Normal 0-5 [facility] Comment on above: Performed By: #### L 500.4050, L100.0100, L501.2450 #### [facility] [address] [place], [address] Erythrocyte distribution width (RBC) [Ratio] 12.1 % Normal 11.6-14.6 [facility] Comment on above: Performed By: #### L 500.4050, L100.0100, L501.2450 #### [facility] [address] [place], [address] Hematocrit (Bld) [Volume fraction] 42.2 % Normal 40-54 [facility] Comment on above: Performed By: #### L 500.4050, L100.0100, L501.2450 #### [facility] [address] [place], [address] Hemoglobin (Bld) [Mass/Vol] 15.1 g/dL Normal 13.0-16.5 [facility] Comment on above: Performed By: #### L 500.4050, L100.0100, L501.2450 #### [facility] [address] [place], [address] IG% 0.300 Normal 0.0-0.9 [facility] Comment on above: Result Comment: IG% - Immature Granulocytes (promyelocytes, myelocytes and metamyelocytes) > 1% indicates that a LEFT SHIFT is Present. Performed By: #### L 500.4050, L100.0100, L501.2450 #### [facility] [address] [place], [address] Lymphocytes/100 WBC (Bld) 27.3 % Normal 19-41 [facility] Comment on above: Performed By: #### L 500.4050, L100.0100, L501.2450 #### [facility] [address] [place], [address] MCH (RBC) [Entitic mass] 31.5 pg Normal 27.0-32.0 [facility] Comment on above: Performed By: #### L 500.4050, L100.0100, L501.2450 #### [facility] [address] [place], [address] MCHC (RBC) [Mass/Vol] 35.8 g/dL Normal 32-36 [facility] Comment on above: Performed By: #### L 500.4050, L100.0100, L501.2450 #### [facility] [address] [place], [address] MCV (RBC) [Entitic vol] 88.1 fL Normal 80-94 [facility] Comment on above: Performed By: #### L 500.4050, L100.0100, L501.2450 #### [facility] [address] [place], [address] Monocytes/100 WBC (Bld) 9.8 % Normal 0-10 [facility] Comment on above: Performed By: #### L 500.4050, L100.0100, L501.2450 #### [facility] [address] [place], [address] Neutrophils/100 WBC (Bld) 61.9 % Normal 47-70 [facility] Comment on above: Performed By: #### L 500.4050, L100.0100, L501.2450 #### [facility] [address] [place], [address] Nucleated RBC (Bld) [#/Vol] 0 10*3/uL Normal 0-5 [facility] Comment on above: Performed By: #### L 500.4050, L100.0100, L501.2450 #### [facility] [address] [place], [address] Platelet mean volume (Bld) [Entitic vol] 10.8 fL Normal 6.2-12.0 [facility] Comment on above: Performed By: #### L 500.4050, L100.0100, L501.2450 #### [facility] [address] [place], [address] Platelets (Bld) [#/Vol] 201 10*3/uL Normal 150-450 [facility] Comment on above: Performed By: #### L 500.4050, L100.0100, L501.2450 #### [facility] [address] [place], [address] RBC (Bld) [#/Vol] 4.79 10*6/uL Normal 4.6-6.[address] [facility] Comment on above: Performed By: #### L 500.4050, L100.0100, L501.2450 #### [facility] [address] [place], [address] RDW SD 39.2 fl Normal 35.1-43.9 [facility] Comment on above: Performed By: #### L 500.4050, L100.0100, L501.2450 #### [facility] [address] [place], [address] WBC (Bld) [#/Vol] 8.8 10*3/uL Normal 4.4-11.0 [facility] Comment on above: Performed By: #### L 500.4050, L100.0100, L501.2450 #### [facility] [address] [place], [address] [facility] 06-09-2024 Albumin [Mass/Vol] 3.7 g/dL Normal 3.2-5.0 [facility] Comment on above: Performed By: #### L 501.6710, L100.0100, L501.2450, L101.9900, L500.4050 #### [facility] [address] [place], [address] Albumin/Globulin [Mass ratio] 1.2 {ratio} Normal 0.9-2.4 [facility] Comment on above: Performed By: #### L 501.6710, L100.0100, L501.2450, L101.9900, L500.4050 #### [facility] [address] [place], [address] ALK P 41 U/L Low 45-117 [facility] Comment on above: Performed By: #### L 501.6710, L100.0100, L501.2450, L101.9900, L500.4050 #### [facility] [address] [place], [address] ALT [Catalytic activity/Vol] 25 U/L Normal 16-61 [facility] Comment on above: Performed By: #### L 501.6710, L100.0100, L501.2450, L101.9900, L500.4050 #### [facility] [address] [place], [address] AST [Catalytic activity/Vol] 13 U/L Low 15-37 [facility] Comment on above: Performed By: #### L 501.6710, L100.0100, L501.2450, L101.9900, L500.4050 #### [facility] [address] [place], [address] Bilirubin [Mass/Vol] 1.50 mg/dL High 0.20-1.00 [facility] Comment on above: Result Comment: For patients on eltrombopag therapy, use of Dimension [place] TBIL is not recommended. Performed By: #### L 501.6710, L100.0100, L501.2450, L101.9900, L500.4050 #### [facility] [address] [place], [address] BUN/CRE 29.7 RATIO High 10-20 [facility] Comment on above: Performed By: #### L 501.6710, L100.0100, L501.2450, L101.9900, L500.4050 #### [facility] [address] [place], [address] CA,Total 9.6 mg/dL Normal 8.5-10.1 [facility] Comment on above: Performed By: #### L 501.6710, L100.0100, L501.2450, L101.9900, L500.4050 #### [facility] [address] [place], [address] Chloride [Moles/Vol] 101 mmol/L Normal 98-107 [facility] Comment on above: Performed By: #### L 501.6710, L100.0100, L501.2450, L101.9900, L500.4050 #### [facility] [address] [place], [address] CO2 [Moles/Vol] 27.0 mmol/L Normal 21.0-32.0 [facility] Comment on above: Performed By: #### L 501.6710, L100.0100, L501.2450, L101.9900, L500.4050 #### [facility] [address] [place], [address] Creatinine [Mass/Vol] 1.28 mg/dL Normal 0.70-1.30 [facility] Comment on above: Result Comment: The validity of the calculated GFR GFRAA in patients over 70 years has not been determined. Clinical correlation is essential. Performed By: #### L 501.6710, L100.0100, L501.2450, L101.9900, L500.4050 #### [facility] [address] [place], [address] ECRCL 75.65 ml/min Normal [facility] Comment on above: Performed By: #### L 501.6710, L100.0100, L501.2450, L101.9900, L500.4050 #### [facility] [address] [place], [address] EST GFR - AA 73 mL/min Normal >60 [facility] Comment on above: Result Comment: Afri can Malian GFR Calc Performed By: #### L 501.6710, L100.0100, L501.2450, L101.9900, L500.4050 #### [facility] [address] [place], [address] GAP 7 Normal 5-15 [facility] Comment on above: Performed By: #### L 501.6710, L100.0100, L501.2450, L101.9900, L500.4050 #### [facility] [address] [place], [address] GFR/1.73 sq M.predicted among non-blacks MDRD (S/P/Bld) [Vol rate/Area] 60 mL/min/{1.73_m2} Normal >60 [facility] Comment on above: Result Comment: Non- GFR Calc Performed By: #### L 501.6710, L100.0100, L501.2450, L101.9900, L500.4050 #### [facility] [address] [place], [address] Globulin (S) [Mass/Vol] 3.2 g/dL Normal 2.2-4.2 [facility] Comment on above: Performed By: #### L 501.6710, L100.0100, L501.2450, L101.9900, L500.4050 #### [facility] [address] [place], [address] Glucose [Mass/Vol] 155 mg/dL High 74-106 [facility] Comment on above: Result Comment: Fast ing Glucose result greater than or equal to 126 mg/dL suggests DIABETES MELLITUS per A.D.A. criteria. Performed By: #### L 501.6710, L100.0100, L501.2450, L101.9900, L500.4050 #### [facility] [address] [place], [address] Potassium [Moles/Vol] 3.7 mmol/L Normal 3.5-5.1 [facility] Comment on above: Performed By: #### L 501.6710, L100.0100, L501.2450, L101.9900, L500.4050 #### [facility] [address] [place], [address] Sodium [Moles/Vol] 135 mmol/L Low 136-145 [facility] Comment on above: Performed By: #### L 501.6710, L100.0100, L501.2450, L101.9900, L500.4050 #### [facility] [address] [place], [address] T PROT 6.9 g/dL Normal 6.4-8.2 [facility] Comment on above: Performed By: #### L 501.6710, L100.0100, L501.2450, L101.9900, L500.4050 #### [facility] [address] [place], [address] Urea nitrogen [Mass/Vol] 38 mg/dL High 7-18 [facility] Comment on above: Performed By: #### L 501.6710, L100.0100, L501.2450, L101.9900, L500.4050 #### [facility] [address] [place], [address] Emergency Department Summary on 06-09-2024 Emergency Department Summary [facility] Records Department [address] [place] [address] Emergency Department Summary 06/09/24 MR#: [id number] Acct: [id number] Name: MORENO VILLEGAS Rep #: [id number] : 1960 64 From: Vandana Calhoun DO PCP: Dr. Zayra Napier DO Status:DEP ER Location: ED ADDENDUM by Dr. Vandana Calhoun DO on 06/10/24 at 0133 EKG reviewed by emergency medicine physician Normal sinus rhythm at a rate of 84 bpm with PACs Left axis deviation Incomplete right bundle branch block Mild low voltage criteria for LVH Normal ST segments Compared to prior EKG patient is no longer tachycardic, no other acute changes 06/10/24 0133 Cosigner Signature (if applicable): cc: Dr. Zayra Napier DO * Signed HPI History of Present Illness Chief Complaint: Nausea/Vomiting Narrative Narrative: Patient is a 64-year-old male with history of diabetes mellitus and hypertension presenting with nausea vomiting for the past week as well as left-sided low back pain that radiates to his hip. Patient states his symptoms started around the same time but is not sure if they are related. States he felt a pinch in his left lower hip has had a hard time walking since. In addition he has developed nausea and vomiting and had multiple episodes of vomiting he describes as bilious. He says he is lost 20 pounds at least in the last week. He states he had a bowel movement yesterday that was more mucus. Denies any blood in his vomit or stool. Denies any fever or chills. Does have a history of prior cholecystectomy. He is also going to his chiropractor for his back pain. He was told by his chiropractor that is likely his SI joint. Denies any fevers does report some night sweats. No chest pain, shortness breath or difficulty breathing. Denies any bowel or bladder incontinence. Denies any saddle anesthesia. Denies any weakness of the legs. No other complaints or concerns reported at this time [facility] Medical History Former tobacco use Obesity GERD (gastroesophageal reflux disease) Hypertension Type 2 diabetes mellitus JUANA (obstructive sleep apnea) Home Medications ???Medication ???Instructions ???Recorded ???Last Taken ???Type pantoprazole 40 mg tablet,delayed 40 mg PO BID 30 days #60 tabs 12/14/22 Unknown Rx release (Protonix) amlodipine 5 mg tablet 5 mg PO DAILY 04/05/24 Unknown History dicyclomine 20 mg tablet 20 mg PO TID #20 tabs 04/05/24 Unknown Rx insulin glargine 100 unit/mL (3 20 unit subcut DAILY 04/05/24 Unknown History mL) subcutaneous pen (Basaglar KwikPen U-100 Insulin) ondansetron 4 mg disintegrating 4 mg PO Q8H PRN PRN Nausea #10 tabs 04/05/24 Unknown Rx tablet rosuvastatin 20 mg tablet 20 mg PO DAILY 04/05/24 Unknown History tirzepatide 7.5 mg/0.5 mL 7.5 mg subcut QWEEK 04/05/24 Unknown History subcutaneous pen injector (Toby) ondansetron 4 mg disintegrating 4 mg PO Q8H PRN PRN Nausea #10 tabs 06/09/24 Unknown Rx tablet prednisone 20 mg tablet 40 mg (2 x 20 mg) PO DAILY #10 tabs 06/09/24 Unknown Rx Allergy/AdvReac Type Severity Reaction Status Date / Time No Known Allergies Allergy Verified 06/09/24 17:20 Family History Mother Diabetes Heart disease Cancer Father No problems noted. Surgical History History of surgery on lower extremity History of cholecystectomy Social History household members: other details: Notes his son lives with him. Smoking Status: Former smoker alcohol intake: never substance use type: does not use ROS ROS ED Constitutional Constitutional ED: Reports sweats; Denies chills or fever(s) Cardiovascular Cardiovascular: Denies chest pain Respiratory/Chest Respiratory/Chest: Denies cough Gastrointestinal Gastrointestinal: Reports diarrhea, nausea and vomiting; Denies abdominal pain or melena Genitourinary Genitourinary ED: Denies dysuria or urinary frequency Musculoskeletal Musculoskeletal: Reports back pain; Denies arthralgias or myalgias Integumentary Denies rash Neurologic Neurologic: Denies paresthesias or weakness Hematologic/Lymphatic Hematologic/Lymphatic: Denies easy bleeding or easy bruising EXAM Physical Exam Const Vital Signs: 06/09/24 17:20 06/09/24 18:40 06/09/24 20:40 Temperature 98.2 F Temperature Source Oral Pulse Rate 73 87 Respiratory Rate 18 16 19 H Blood Pressure 137/100 H 143/98 H 131/82 H Blood Pressure Mean 112 113 98 Pulse Ox 98 98 Oxygen Delivery Method Room Air Room Air 06/09/24 22:00 Temperature Temperature Source Pulse Rate 83 Respiratory Ra (more content not included)... Normal [facility] Lipaseon 06-09-2024 Lipase [Catalytic activity/Vol] 124 U/L High 13-75 [facility] Comment on above: Result Comment: Elisa jenkins note: LIPASE revised reference range effective 22. New Lipase methodology. Expected to produce lower values than the previous assay method. NEW Reference Range: 13 - 75 U/L Performed By: #### L 501.6710, L100.0100, L501.2450, L101.9900, L500.4050 #### [facility] [address] [place], [address] Magnesiumon 06-09-2024 Magnesium [Mass/Vol] 2.0 mg/dL Normal 1.6-2.6 [facility] Comment on above: Performed By: #### L 501.6710, L100.0100, L501.2450, L101.9900, L500.4050 #### [facility] [address] [place], [address] Urinalysis, Completeon 06-09 Mucus Ql (Urine sed) 1+ /hpf Normal [facility] Comment on above: Order Comment: CLEAN CATCH Performed By: #### L 501.6710, L100.0100, L501.2450, L101.9900, L500.4050 #### [facility] [address] [place], [address] WBC 0-5 SEEN Normal 0-5 [facility] Comment on above: Order Comment: CLEAN CATCH Performed By: #### L 501.6710, L100.0100, L501.2450, L101.9900, L500.4050 #### [facility] [address] [place], [address] BACTERIA 0 SEEN Normal None Seen [facility] Comment on above: Order Comment: CLEAN CATCH Performed By: #### L 501.6710, L100.0100, L501.2450, L101.9900, L500.4050 #### [facility] [address] [place], [address] EPI,SQUAMOUS 0 SEEN Normal 0-5 [facility] Comment on above: Order Comment: CLEAN CATCH Performed By: #### L 501.6710, L100.0100, L501.2450, L101.9900, L500.4050 #### [facility] [address] [place], [address] RBC 0 SEEN Normal 0-5 [facility] Comment on above: Order Comment: CLEAN CATCH Performed By: #### L 501.6710, L100.0100, L501.2450, L101.9900, L500.4050 #### [facility] [address] [place], [address] CBC W/Diff, Automatedon 10-3 -2023 Absolute Lymph 1.54 X10 3/uL Normal 0.83-4.51 [facility] Comment on above: Performed By: #### L 500.4050, L100.0100 #### [facility] [address] [place], [address] Absolute Neut 6.4 X10 3/uL Normal 2.0-7.7 [facility] Comment on above: Performed By: #### L 500.4050, L100.0100 #### [facility] [address] [place], [address] Basophils/100 WBC (Bld) 0.8 % Normal 0-1 [facility] Comment on above: Performed By: #### L 500.4050, L100.0100 #### [facility] [address] [place], [address] Eosinophils/100 WBC (Bld) 0.1 % Normal 0-5 [facility] Comment on above: Performed By: #### L 500.4050, L100.0100 #### [facility] [address] [place], [address] Erythrocyte distribution width (RBC) [Ratio] 11.8 % Normal 11.6-14.6 [facility] Comment on above: Performed By: #### L 500.4050, L100.0100 #### [facility] [address] [place], [address] Hematocrit (Bld) [Volume fraction] 44.0 % Normal 40-54 [facility] Comment on above: Performed By: #### L 500.4050, L100.0100 #### [facility] [address] [place], [address] Hemoglobin (Bld) [Mass/Vol] 15.8 g/dL Normal 13.0-16.5 [facility] Comment on above: Performed By: #### L 500.4050, L100.0100 #### [facility] [address] [place], [address] IG% 0.500 Normal 0.0-0.9 [facility] Comment on above: Result Comment: IG% - Immature Granulocytes (promyelocytes, myelocytes and metamyelocytes) > 1% indicates that a LEFT SHIFT is Present. Performed By: #### L 500.4050, L100.0100 #### [facility] [address] [place], [address] Lymphocytes/100 WBC (Bld) 17.4 % Low 19-41 [facility] Comment on above: Performed By: #### L 500.4050, L100.0100 #### [facility] [address] [place], [address] MCH (RBC) [Entitic mass] 32.0 pg Normal 27.0-32.0 [facility] Comment on above: Performed By: #### L 500.4050, L100.0100 #### [facility] [address] [place], [address] MCHC (RBC) [Mass/Vol] 35.9 g/dL Normal 32-36 [facility] Comment on above: Performed By: #### L 500.4050, L100.0100 #### [facility] [address] [place], [address] MCV (RBC) [Entitic vol] 89.1 fL Normal 80-94 [facility] Comment on above: Performed By: #### L 500.4050, L100.0100 #### [facility] [address] [place], [address] Monocytes/100 WBC (Bld) 9.0 % Normal 0-10 [facility] Comment on above: Performed By: #### L 500.4050, L100.0100 #### [facility] [address] [place], [address] Neutrophils/100 WBC (Bld) 72.2 % High 47-70 [facility] Comment on above: Performed By: #### L 500.4050, L100.0100 #### [facility] [address] [place], [address] Nucleated RBC (Bld) [#/Vol] 0 10*3/uL Normal 0-5 [facility] Comment on above: Performed By: #### L 500.4050, L100.0100 #### [facility] [address] [place], [address] Platelet mean volume (Bld) [Entitic vol] 11.0 fL Normal 6.2-12.0 [facility] Comment on above: Performed By: #### L 500.4050, L100.0100 #### [facility] [address] [place], [address] Platelets (Bld) [#/Vol] 220 10*3/uL Normal 150-450 [facility] Comment on above: Performed By: #### L 500.4050, L100.0100 #### [facility] [address] [place], [address] RBC (Bld) [#/Vol] 4.94 10*6/uL Normal 4.6-6.[address] [facility] Comment on above: Performed By: #### L 500.4050, L100.0100 #### [facility] [address] [place], [address] RDW SD 38.2 fl Normal 35.1-43.9 [facility] Comment on above: Performed By: #### L 500.4050, L100.0100 #### [facility] [address] [place], [address] WBC (Bld) [#/Vol] 8.8 10*3/uL Normal 4.4-11.0 [facility] Comment on above: Performed By: #### L 500.4050, L100.0100 #### [facility] [address] [place], [address] [facility] 04-09-2024 Albumin [Mass/Vol] 4.0 g/dL Normal 3.2-5.0 [facility] Comment on above: Performed By: #### L 500.4050, L100.0100 #### [facility] [address] [place], [address] Albumin/Globulin [Mass ratio] 1.1 {ratio} Normal 0.9-2.4 [facility] Comment on above: Performed By: #### L 500.4050, L100.0100 #### [facility] [address] [place], [address] ALK P 44 U/L Low 45-117 [facility] Comment on above: Performed By: #### L 500.4050, L100.0100 #### [facility] [address] [place], [address] ALT [Catalytic activity/Vol] 25 U/L Normal 16-61 [facility] Comment on above: Performed By: #### L 500.4050, L100.0100 #### [facility] [address] [place], [address] AST [Catalytic activity/Vol] 18 U/L Normal 15-37 [facility] Comment on above: Performed By: #### L 500.4050, L100.0100 #### [facility] [address] [place], [address] Bilirubin [Mass/Vol] 1.50 mg/dL High 0.20-1.00 [facility] Comment on above: Result Comment: For patients on eltrombopag therapy, use of Dimension [place] TBIL is not recommended. Performed By: #### L 500.4050, L100.0100 #### [facility] [address] [place], [address] BUN/CRE 20.5 RATIO High 10-20 [facility] Comment on above: Performed By: #### L 500.4050, L100.0100 #### [facility] [address] [place], [address] CA,Total 9.9 mg/dL Normal 8.5-10.1 [facility] Comment on above: Performed By: #### L 500.4050, L100.0100 #### [facility] [address] [place], [address] Chloride [Moles/Vol] 102 mmol/L Normal 98-107 [facility] Comment on above: Performed By: #### L 500.4050, L100.0100 #### [facility] [address] [place], [address] CO2 [Moles/Vol] 24.0 mmol/L Normal 21.0-32.0 [facility] Comment on above: Performed By: #### L 500.4050, L100.0100 #### [facility] [address] [place], [address] Creatinine [Mass/Vol] 1.51 mg/dL High 0.70-1.30 [facility] Comment on above: Result Comment: The validity of the calculated GFR GFRAA in patients over 70 years has not been determined. Clinical correlation is essential. Performed By: #### L 500.4050, L100.0100 #### [facility] [address] [place], [address] EST GFR - AA 60 mL/min Normal >60 [facility] Comment on above: Result Comment: Afri can Malian GFR Calc Performed By: #### L 500.4050, L100.0100 #### [facility] [address] [place], [address] GAP 8 Normal 5-15 [facility] Comment on above: Performed By: #### L 500.4050, L100.0100 #### [facility] [address] [place], [address] GFR/1.73 sq M.predicted among non-blacks MDRD (S/P/Bld) [Vol rate/Area] 50 mL/min/{1.73_m2} Low >60 [facility] Comment on above: Result Comment: Non- GFR Calc Performed By: #### L 500.4050, L100.0100 #### [facility] [address] [place], [address] Globulin (S) [Mass/Vol] 3.8 g/dL Normal 2.2-4.2 [facility] Comment on above: Performed By: #### L 500.4050, L100.0100 #### [facility] [address] [place], [address] Glucose [Mass/Vol] 189 mg/dL High 74-106 [facility] Comment on above: Result Comment: Fast ing Glucose result greater than or equal to 126 mg/dL suggests DIABETES MELLITUS per A.D.A. criteria. Performed By: #### L 500.4050, L100.0100 #### [facility] [address] [place], [address] Potassium [Moles/Vol] 4.0 mmol/L Normal 3.5-5.1 [facility] Comment on above: Performed By: #### L 500.4050, L100.0100 #### [facility] [address] [place], [address] Sodium [Moles/Vol] 134 mmol/L Low 136-145 [facility] Comment on above: Performed By: #### L 500.4050, L100.0100 #### [facility] [address] [place], [address] T PROT 7.8 g/dL Normal 6.4-8.2 [facility] Comment on above: Performed By: #### L 500.4050, L100.0100 #### [facility] [address] [place], [address] Urea nitrogen [Mass/Vol] 31 mg/dL High 7-18 [facility] Comment on above: Performed By: #### L 500.4050, L100.0100 #### [facility] [address] [place], [address] Abdomen/Pelvis W IV Cont ONL Yon 04-05-2024 Abdomen/Pelvis W IV Cont ONLY [facility] Imaging Services [address] [place] [address] Abdomen/Pelvis W IV Cont ONLY MR#: [id number] Acct: [id number] Name: MORENO VILLEGAS Rep #: [id number] : 1960 M 64 From: Andres Omer PCP: Dr. Zayra Napier, DO Status: REG ER Study: Abdomen/Pelvis W IV Cont ONLY Date of Exam: Exam# [id number] Ordering Dr: David Barrett [facility] DIRECTOR-C [id number] STUDY: CT Abdomen And Pelvis W/ Contrast Injection 04/05/2024 2:11 PM REASON FOR EXAM: Male, 64 years old. Abdominal pain abdominal pain Individualized dose optimization techniques were used for this CT. COMPARISON: 24 TECHNIQUE: CT Abdomen And Pelvis W/ Contrast Injection IV 100mL Isovue-370 FINDINGS: There are atherosclerotic calcifications of visualized coronary arteries. The visualized portions of the heart are within normal limits. Normal liver. There are surgical clips in the gallbladder fossa consistent with a prior cholecystectomy. Normal spleen. Normal pancreas. Normal bilateral adrenal glands. No acute findings of the right kidney. No acute findings of the left kidney. Normal visualized stomach. Normal small intestine. 6.1 mm nodule in the proximal sigmoid colon. This may be a fecalith. However, a polyp cannot be excluded. Recommend colonoscopy. Series 601 image 54. Series 2 image 99. The appendix is visualized and appears normal. There are calcifications of the abdominal aorta. This is consistent for atherosclerotic disease. There is NO abdominal aortic aneurysm. Vascular workup can be obtained based on clinical correlation. Normal inferior vena cava. Subcentimeter mesenteric lymph nodes. Normal urinary bladder. Normal abdominal wall. There are diffuse degenerative changes of the visualized lumbar spine. Stable L1 sclerotic lesion. CT/Abdomen/Pelvis W IV Cont ONLY IMPRESSION: (NOT LISTED IN ORDER OF SIGNIFICANCE) There are no acute findings. 6.1 mm nodule in the proximal sigmoid colon. This may be a fecalith. However, a polyp cannot be excluded. Recommend colonoscopy. Other findings as above. Electronically Signed: Andres Strong MD at 14:15 EDT , CC: MARIS Barrett; Dr. Zayra Napier DO [employer] Strategist: Signed Normal [facility] CBC W/Diff, Automatedon 10-2 Absolute Lymph 1.01 X10 3/uL Normal 0.83-4.51 [facility] Comment on above: Performed By: #### L 501.6710, L100.0100, L501.2450, L101.9900, L500.4050 #### [facility] [address] [place], [address] Absolute Neut 5.7 X10 3/uL Normal 2.0-7.7 [facility] Comment on above: Performed By: #### L 501.6710, L100.0100, L501.2450, L101.9900, L500.4050 #### [facility] [address] [place], [address] Basophils/100 WBC (Bld) 0.7 % Normal 0-1 [facility] Comment on above: Performed By: #### L 501.6710, L100.0100, L501.2450, L101.9900, L500.4050 #### [facility] [address] [place], [address] Eosinophils/100 WBC (Bld) 0.0 % Normal 0-5 [facility] Comment on above: Performed By: #### L 501.6710, L100.0100, L501.2450, L101.9900, L500.4050 #### [facility] [address] [place], [address] Erythrocyte distribution width (RBC) [Ratio] 11.7 % Normal 11.6-14.6 [facility] Comment on above: Performed By: #### L 501.6710, L100.0100, L501.2450, L101.9900, L500.4050 #### [facility] [address] [place], [address] Hematocrit (Bld) [Volume fraction] 40.4 % Normal 40-54 [facility] Comment on above: Performed By: #### L 501.6710, L100.0100, L501.2450, L101.9900, L500.4050 #### [facility] [address] [place], [address] Hemoglobin (Bld) [Mass/Vol] 14.1 g/dL Normal 13.0-16.5 [facility] Comment on above: Performed By: #### L 501.6710, L100.0100, L501.2450, L101.9900, L500.4050 #### [facility] [address] [place], [address] IG% 0.400 Normal 0.0-0.9 [facility] Comment on above: Result Comment: IG% - Immature Granulocytes (promyelocytes, myelocytes and metamyelocytes) > 1% indicates that a LEFT SHIFT is Present. Performed By: #### L 501.6710, L100.0100, L501.2450, L101.9900, L500.4050 #### [facility] [address] [place], [address] Lymphocytes/100 WBC (Bld) 14.0 % Low 19-41 [facility] Comment on above: Performed By: #### L 501.6710, L100.0100, L501.2450, L101.9900, L500.4050 #### [facility] [address] [place], [address] MCH (RBC) [Entitic mass] 31.3 pg Normal 27.0-32.0 [facility] Comment on above: Performed By: #### L 501.6710, L100.0100, L501.2450, L101.9900, L500.4050 #### [facility] [address] [place], [address] MCHC (RBC) [Mass/Vol] 34.9 g/dL Normal 32-36 [facility] Comment on above: Performed By: #### L 501.6710, L100.0100, L501.2450, L101.9900, L500.4050 #### [facility] [address] [place], [address] MCV (RBC) [Entitic vol] 89.6 fL Normal 80-94 [facility] Comment on above: Performed By: #### L 501.6710, L100.0100, L501.2450, L101.9900, L500.4050 #### [facility] [address] [place], [address] Monocytes/100 WBC (Bld) 5.8 % Normal 0-10 [facility] Comment on above: Performed By: #### L 501.6710, L100.0100, L501.2450, L101.9900, L500.4050 #### [facility] [address] [place], [address] Neutrophils/100 WBC (Bld) 79.1 % High 47-70 [facility] Comment on above: Performed By: #### L 501.6710, L100.0100, L501.2450, L101.9900, L500.4050 #### [facility] [address] [place], [address] Nucleated RBC (Bld) [#/Vol] 0 10*3/uL Normal 0-5 [facility] Comment on above: Performed By: #### L 501.6710, L100.0100, L501.2450, L101.9900, L500.4050 #### [facility] [address] [place], [address] Platelet mean volume (Bld) [Entitic vol] 10.4 fL Normal 6.2-12.0 [facility] Comment on above: Performed By: #### L 501.6710, L100.0100, L501.2450, L101.9900, L500.4050 #### [facility] [address] [place], [address] Platelets (Bld) [#/Vol] 193 10*3/uL Normal 150-450 [facility] Comment on above: Performed By: #### L 501.6710, L100.0100, L501.2450, L101.9900, L500.4050 #### [facility] [address] [place], [address] RBC (Bld) [#/Vol] 4.51 10*6/uL Low 4.6-6.[address] [facility] Comment on above: Performed By: #### L 501.6710, L100.0100, L501.2450, L101.9900, L500.4050 #### [facility] [address] [place], [address] RDW SD 38.0 fl Normal 35.1-43.9 [facility] Comment on above: Performed By: #### L 501.6710, L100.0100, L501.2450, L101.9900, L500.4050 #### [facility] [address] [place], [address] WBC (Bld) [#/Vol] 7.2 10*3/uL Normal 4.4-11.0 [facility] Comment on above: Performed By: #### L 501.6710, L100.0100, L501.2450, L101.9900, L500.4050 #### [facility] [address] [place], [address] [facility] 04-05-2024 Albumin [Mass/Vol] 4.0 g/dL Normal 3.2-5.0 [facility] Comment on above: Performed By: #### L 501.6710, L100.0100, L501.2450, L101.9900, L500.4050 #### [facility] [address] [place], [address] Albumin/Globulin [Mass ratio] 1.1 {ratio} Normal 0.9-2.4 [facility] Comment on above: Performed By: #### L 501.6710, L100.0100, L501.2450, L101.9900, L500.4050 #### [facility] [address] [place], [address] ALK P 44 U/L Low 45-117 [facility] Comment on above: Performed By: #### L 501.6710, L100.0100, L501.2450, L101.9900, L500.4050 #### [facility] [address] [place], [address] ALT [Catalytic activity/Vol] 31 U/L Normal 16-61 [facility] Comment on above: Performed By: #### L 501.6710, L100.0100, L501.2450, L101.9900, L500.4050 #### [facility] [address] [place], [address] AST [Catalytic activity/Vol] 26 U/L Normal 15-37 [facility] Comment on above: Performed By: #### L 501.6710, L100.0100, L501.2450, L101.9900, L500.4050 #### [facility] [address] [place], [address] Bilirubin [Mass/Vol] 1.10 mg/dL High 0.20-1.00 [facility] Comment on above: Result Comment: For patients on eltrombopag therapy, use of Dimension [place] TBIL is not recommended. Performed By: #### L 501.6710, L100.0100, L501.2450, L101.9900, L500.4050 #### [facility] [address] [place], [address] BUN/CRE 16.0 RATIO Normal 10-20 [facility] Comment on above: Performed By: #### L 501.6710, L100.0100, L501.2450, L101.9900, L500.4050 #### [facility] [address] [place], [address] CA,Total 9.7 mg/dL Normal 8.5-10.1 [facility] Comment on above: Performed By: #### L 501.6710, L100.0100, L501.2450, L101.9900, L500.4050 #### [facility] [address] [place], [address] Chloride [Moles/Vol] 108 mmol/L High 98-107 [facility] Comment on above: Performed By: #### L 501.6710, L100.0100, L501.2450, L101.9900, L500.4050 #### [facility] [address] [place], [address] CO2 [Moles/Vol] 25.0 mmol/L Normal 21.0-32.0 [facility] Comment on above: Performed By: #### L 501.6710, L100.0100, L501.2450, L101.9900, L500.4050 #### [facility] [address] [place], [address] Creatinine [Mass/Vol] 1.06 mg/dL Normal 0.70-1.30 [facility] Comment on above: Result Comment: The validity of the calculated GFR GFRAA in patients over 70 years has not been determined. Clinical correlation is essential. Performed By: #### L 501.6710, L100.0100, L501.2450, L101.9900, L500.4050 #### [facility] [address] [place], [address] ECRCL 93.73 ml/min Normal [facility] Comment on above: Performed By: #### L 501.6710, L100.0100, L501.2450, L101.9900, L500.4050 #### [facility] [address] [place], [address] EST GFR - AA 91 mL/min Normal >60 [facility] Comment on above: Result Comment: Afri can Malian GFR Calc Performed By: #### L 501.6710, L100.0100, L501.2450, L101.9900, L500.4050 #### [facility] [address] [place], [address] GAP 6 Normal 5-15 [facility] Comment on above: Performed By: #### L 501.6710, L100.0100, L501.2450, L101.9900, L500.4050 #### [facility] [address] [place], [address] GFR/1.73 sq M.predicted among non-blacks MDRD (S/P/Bld) [Vol rate/Area] 75 mL/min/{1.73_m2} Normal >60 [facility] Comment on above: Result Comment: Non- GFR Calc Performed By: #### L 501.6710, L100.0100, L501.2450, L101.9900, L500.4050 #### [facility] [address] [place], [address] Globulin (S) [Mass/Vol] 3.6 g/dL Normal 2.2-4.2 [facility] Comment on above: Performed By: #### L 501.6710, L100.0100, L501.2450, L101.9900, L500.4050 #### [facility] [address] [place], [address] Glucose [Mass/Vol] 216 mg/dL High 74-106 [facility] Comment on above: Result Comment: Gluc ose result greater than or equal to 200 mg/dL suggests DIABETES MELLITUS per A.D.A. criteria. Performed By: #### L 501.6710, L100.0100, L501.2450, L101.9900, L500.4050 #### [facility] [address] [place], [address] Potassium [Moles/Vol] 4.1 mmol/L Normal 3.5-5.1 [facility] Comment on above: Performed By: #### L 501.6710, L100.0100, L501.2450, L101.9900, L500.4050 #### [facility] [address] [place], [address] Sodium [Moles/Vol] 139 mmol/L Normal 136-145 [facility] Comment on above: Performed By: #### L 501.6710, L100.0100, L501.2450, L101.9900, L500.4050 #### [facility] [address] [place], [address] T PROT 7.6 g/dL Normal 6.4-8.2 [facility] Comment on above: Performed By: #### L 501.6710, L100.0100, L501.2450, L101.9900, L500.4050 #### [facility] [address] [place], [address] Urea nitrogen [Mass/Vol] 17 mg/dL Normal 7-18 [facility] Comment on above: Performed By: #### L 501.6710, L100.0100, L501.2450, L101.9900, L500.4050 #### [facility] [address] [place], [address] Emergency Department Summary on 04-05-2024 Emergency Department Summary [facility] Medical Records Department [address] [place] [address] Emergency Department Summary 04/05/24 MR#: [id number] Acct: [id number] Name: MORENO VILLEGAS Rep #: [id number] : 1960 64 From: Ej Elliott MD PCP: Dr. Zayra Napier, DO Status:DEP ER Location: ED HPI History of Present Illness Chief Complaint: Nausea/Vomiting Narrative Narrative: Patient is a 64-year-old male with history of hypertension, GERD, hyperlipidemia, diabetes who presents to the emergency department 4 days of nausea and vomiting. Pay states has been having some left-sided abdominal pain, and now he is just hurting because of bile. Patient denies any diarrhea, he states he has some decreased gas. Denies any fever or chills. Patient does have history of surgical to his abdomen, patient did have a cholecystectomy multiple years ago. [facility] Medical History Former tobacco use GERD (gastroesophageal reflux disease) Hypertension Obesity JUANA (obstructive sleep apnea) Type 2 diabetes mellitus Home Medications ???Medication ???Instructions ???Recorded ???Last Taken ???Type pantoprazole 40 mg tablet,delayed 40 mg PO BID 30 days #60 tabs 12/14/22 Unknown Rx release (Protonix) amlodipine 5 mg tablet 5 mg PO DAILY 04/05/24 Unknown History dicyclomine 20 mg tablet 20 mg PO TID #20 tabs 04/05/24 Unknown Rx insulin glargine 100 unit/mL (3 20 unit subcut DAILY 04/05/24 Unknown History mL) subcutaneous pen (Basaglar KwikPen U-100 Insulin) ondansetron 4 mg disintegrating 4 mg PO Q8H PRN PRN Nausea #10 tabs 04/05/24 Unknown Rx tablet rosuvastatin 20 mg tablet 20 mg PO DAILY 04/05/24 Unknown History tirzepatide 7.5 mg/0.5 mL 7.5 mg subcut QWEEK 04/05/24 Unknown History subcutaneous pen injector (Mounjaro) Allergy/AdvReac Type Severity Reaction Status Date / Time No Known Allergies Allergy Verified 04/05/24 12:36 Family History Mother Diabetes Heart disease Cancer Father No problems noted. Surgical History History of cholecystectomy History of surgery on lower extremity Social History household members: other details: Notes his son lives with him. Smoking Status: Former smoker alcohol intake: never substance use type: does not use ROS ROS ED ROS Narrative Constitutional: Negative for fever, chills, weight loss, weakness Eyes: Negative for vision loss, vision change, double vision ENT: Negative for any sore throat, ear pain, congestion Cardiovascular: Negative for any chest pain, tightness, palpitations Respiratory: Negative for any cough, sputum production, hemoptysis, dyspnea, dyspnea on exertion, orthopnea Gastrointestinal: Negative for any diarrhea, constipation, blood in stool, blood in vomit. Positive for abdominal pain, nausea and vomiting : Negative for any urinary frequency, dysuria, retention, blood in urine Muscle skeletal: Negative for any neck pain, back pain Neurological: Negative for any headache, syncope, dizziness Skin: Negative for any rashes, itching, abrasions, lacerations Psychiatric: Negative for any depression, anxiety, stress, suicidal ideation, homicidal ideation Hematologic: Negative for any excessive bruising, easy bleeding EXAM Physical Exam Narrative Exam Narrative: Vital signs reviewed. HEET: Head normocephalic atraumatic, TMs clear bilaterally. Posterior pharynx is clear, moist mucous membranes. Nares clear bilaterally. Neck: Supple with no lymphadenopathy or tenderness. No signs of meningismus. Cardiac: Regular rate and rhythm no murmurs gallops or rubs, equal peripheral pulses bilaterally. Respiratory: Lungs clear to auscultation bilaterally. No chest tenderness. Abdomen: Soft, nondistended. No abdominal bruit or pulsatile masses. No hepatosplenomegaly. Patient did have some abdominal discomfort on palpation more towards the left lower quadrant. No peritoneal signs. Extremities: No peripheral edema, no signs of gross trauma or deformity. Active full range of motion of all extremities. Neuro: Cranial nerves II through XII intact, no focal neurological deficits. Skin: Clean dry and intact with no rash, purpura, petechiae, vesicles or pustules. Backs/flank: No CVA tenderness, no midline spinal tenderness, no deformity. Psych: Normal mood and affect. No SI, HI or acute psychosis. Const Vital Signs: 04/05/24 12:36 04/05/24 14:16 Temperature 97.8 F 98.5 F Temperature Source Oral Oral Pulse Rate 97 99 Respiratory Rate 18 18 Blood Pressure 155/99 H 163/97 H Blood Pressure Mean 117 119 Pulse Ox 98 98 Oxygen Delivery Method Room Air Room Air (more content not included)... Normal [facility] Lipaseon 04-05-2024 Lipase [Catalytic activity/Vol] 77 U/L High 13-75 [facility] Comment on above: Result Comment: Elisa jenkins note: LIPASE revised reference range effective 22. New Lipase methodology. Expected to produce lower values than the previous assay method. NEW Reference Range: 13 - 75 U/L Performed By: #### L 501.6710, L100.0100, L501.2450, L101.9900, L500.4050 #### [facility] [address] [place], [place], [id number] Urinalysis, Completeon 04-05 BACTERIA 1+ /hpf Normal None Seen [facility] Comment on above: Order Comment: CLEAN CATCH Performed By: #### L 501.6710, L100.0100, L501.2450, L101.9900, L500.4050 #### [facility] [address] [place], [place], [id number] CAST,HYALINE 0-5 SEEN Normal 0-5 [facility] Comment on above: Order Comment: CLEAN CATCH Performed By: #### L 501.6710, L100.0100, L501.2450, L101.9900, L500.4050 #### [facility] [address] [place], [place], [id number] RBC 0-5 SEEN Normal 0-5 [facility] Comment on above: Order Comment: CLEAN CATCH Performed By: #### L 501.6710, L100.0100, L501.2450, L101.9900, L500.4050 #### [facility] [address] [place], [address] WBC 5-10 SEEN Normal 0-5 [facility] Comment on above: Order Comment: CLEAN CATCH Performed By: #### L 501.6710, L100.0100, L501.2450, L101.9900, L500.4050 #### [facility] [address] [place], [address] BILIRUBIN URINE Negative Normal Negative [facility] Comment on above: Order Comment: CLEAN CATCH Performed By: #### L 501.6710, L100.0100, L501.2450, L101.9900, L500.4050 #### [facility] [address] [place], [address] Clarity (U) Clear Normal Clear [facility] Comment on above: Order Comment: CLEAN CATCH Performed By: #### L 501.6710, L100.0100, L501.2450, L101.9900, L500.4050 #### [facility] [address] [place], [address] Color (U) Straw Normal Yellow [facility] Comment on above: Order Comment: CLEAN CATCH Performed By: #### L 501.6710, L100.0100, L501.2450, L101.9900, L500.4050 #### [facility] [address] [place], [address] GLUCOSE, UR 100 mg/dl Abnormal Normal [facility] Comment on above: Order Comment: CLEAN CATCH Performed By: #### L 501.6710, L100.0100, L501.2450, L101.9900, L500.4050 #### [facility] [address] [place], [address] KETONE UR 15 mg/dl Abnormal Negative [facility] Comment on above: Order Comment: CLEAN CATCH Performed By: #### L 501.6710, L100.0100, L501.2450, L101.9900, L500.4050 #### [facility] [address] [place], [address] LEUK ESTERASE Negative Normal Negative [facility] Comment on above: Order Comment: CLEAN CATCH Performed By: #### L 501.6710, L100.0100, L501.2450, L101.9900, L500.4050 #### [facility] [address] [place], [address] Nitrite Ql (U) Negative Normal Negative [facility] Comment on above: Order Comment: CLEAN CATCH Performed By: #### L 501.6710, L100.0100, L501.2450, L101.9900, L500.4050 #### [facility] [address] [place], [address] OCCULT BLOOD-UR 25 /ul Abnormal Negative [facility] Comment on above: Order Comment: CLEAN CATCH Performed By: #### L 501.6710, L100.0100, L501.2450, L101.9900, L500.4050 #### [facility] [address] [place], [address] pH UR 7.0 Normal 5.0 - 8.0 [facility] Comment on above: Order Comment: CLEAN CATCH Performed By: #### L 501.6710, L100.0100, L501.2450, L101.9900, L500.4050 #### [facility] [address] [place], [address] PROT DIPSTX 500 mg/dl Abnormal Negative [facility] Comment on above: Order Comment: CLEAN CATCH Performed By: #### L 501.6710, L100.0100, L501.2450, L101.9900, L500.4050 #### [facility] [address] [place], [address] SP.GR. DIPSTX 1.010 Normal 1.002-1.030 [facility] Comment on above: Order Comment: CLEAN CATCH Performed By: #### L 501.6710, L100.0100, L501.2450, L101.9900, L500.4050 #### [facility] [address] [place], [address] UROBILI Normal Normal Normal [facility] Comment on above: Order Comment: CLEAN CATCH Performed By: #### L 501.6710, L100.0100, L501.2450, L101.9900, L500.4050 #### [facility] [address] [place], [address] EPI,SQUAMOUS 0 SEEN Normal 0-5 [facility] Comment on above: Order Comment: CLEAN CATCH Performed By: #### L 501.6710, L100.0100, L501.2450, L101.9900, L500.4050 #### [facility] [address] [place], [address] Mucus Ql (Urine sed) 0 SEEN Normal [facility] Comment on above: Order Comment: CLEAN CATCH Performed By: #### L 501.6710, L100.0100, L501.2450, L101.9900, L500.4050 #### [facility] [address] [place], [address] Basic Metabolic Profile (BMP )on 10-23-2023 BUN/CRE 10.7 RATIO Normal 10-20 [facility] Comment on above: Performed By: #### L 501.6710, L100.0100, L501.2450, L101.9900, L500.4050 #### [facility] [address] [place], [address] CA,Total 9.2 mg/dL Normal 8.5-10.1 [facility] Comment on above: Performed By: #### L 501.6710, L100.0100, L501.2450, L101.9900, L500.4050 #### [facility] [address] [place], [address] Chloride [Moles/Vol] 108 mmol/L High 98-107 [facility] Comment on above: Performed By: #### L 501.6710, L100.0100, L501.2450, L101.9900, L500.4050 #### [facility] [address] [place], [address] CO2 [Moles/Vol] 23.0 mmol/L Normal 21.0-32.0 [facility] Comment on above: Performed By: #### L 501.6710, L100.0100, L501.2450, L101.9900, L500.4050 #### [facility] [address] [place], [address] Creatinine [Mass/Vol] 0.93 mg/dL Normal 0.70-1.30 [facility] Comment on above: Result Comment: The validity of the calculated GFR GFRAA in patients over 70 years has not been determined. Clinical correlation is essential. Performed By: #### L 501.6710, L100.0100, L501.2450, L101.9900, L500.4050 #### [facility] [address] [place], [address] EST GFR - AA 105 mL/min Normal >60 [facility] Comment on above: Result Comment: Afri can Malian GFR Calc Performed By: #### L 501.6710, L100.0100, L501.2450, L101.9900, L500.4050 #### [facility] [address] [place], [address] GAP 7 Normal 5-15 [facility] Comment on above: Performed By: #### L 501.6710, L100.0100, L501.2450, L101.9900, L500.4050 #### [facility] [address] [place], [address] GFR/1.73 sq M.predicted among non-blacks MDRD (S/P/Bld) [Vol rate/Area] 87 mL/min/{1.73_m2} Normal >60 [facility] Comment on above: Result Comment: Non- GFR Calc Performed By: #### L 501.6710, L100.0100, L501.2450, L101.9900, L500.4050 #### [facility] [address] [place], [address] Glucose [Mass/Vol] 164 mg/dL High 74-106 [facility] Comment on above: Result Comment: Fast ing Glucose result greater than or equal to 126 mg/dL suggests DIABETES MELLITUS per A.D.A. criteria. Performed By: #### L 501.6710, L100.0100, L501.2450, L101.9900, L500.4050 #### [facility] [address] [place], [address] Potassium [Moles/Vol] 4.1 mmol/L Normal 3.5-5.1 [facility] Comment on above: Performed By: #### L 501.6710, L100.0100, L501.2450, L101.9900, L500.4050 #### [facility] [address] [place], [address] Sodium [Moles/Vol] 138 mmol/L Normal 136-145 [facility] Comment on above: Performed By: #### L 501.6710, L100.0100, L501.2450, L101.9900, L500.4050 #### [facility] [address] [place], [address] Urea nitrogen [Mass/Vol] 10 mg/dL Normal 7-18 [facility] Comment on above: Performed By: #### L 501.6710, L100.0100, L501.2450, L101.9900, L500.4050 #### [facility] [address] [place], [address] Abdomen/Pelvis WITH Contrast on 10-11-2023 Abdomen/Pelvis WITH Contrast [facility] Imaging Services [address] [place] [address] Abdomen/Pelvis WITH Contrast MR#: [id number] Acct: [id number] Name: MORENO VILLEGAS Rep #: [id number] : 1960 M 63 From: Feng dunbar MD PCP: Dr. Zayra Napier DO Status: REG CLI Study: Abdomen/Pelvis WITH Contrast Date of Exam: 08/31 Exam# [id number] Ordering Dr: Zayra Napier DO [id number] STUDY: CT ABDOMEN AND PELVIS WITH CONTRAST REASON FOR EXAM: Male, 63 years old. ABD PAIN, VOMITING WITH ABNORMAL WEIGHT LOSS RADIATION DOSAGE (If Supplied By Facility): CTDIvol = ( 14.35 ) mGy, DLP = ( 1182.05 ) mGycm TECHNIQUE: Transaxial images were obtained from the dome of the diaphragm to the symphysis pubis with oral contrast. Oral and amp; IV Readi-CAT and amp; 75mL Isovue-300 was administered. Sagittal and coronal images were reconstructed. Individualized dose optimization techniques were used for this CT. COMPARISON: Comparison is made with prior study May 21, 2023. FINDINGS: Minimal degree of a bibasilar dependent atelectasis. Coronary artery calcification. Normal liver. The patient is status post cholecystectomy. Normal spleen. Normal pancreas. Normal bilateral adrenal glands. Normal right kidney. Normal left kidney. Normal visualized stomach. Normal small intestine. There are scattered colonic diverticula consistent with diverticulosis. Moderate amount of fecal material is seen in the colon. The appendix is visualized and appears normal. There is scattered atherosclerotic calcification of the abdominal aorta, without a demonstrated aneurysm. Normal inferior vena cava. There is small retroperitoneal lymphadenopathy with enlarged nodes no greater than 10mm in the short axis diameter. Normal urinary bladder. The prostate measures 4.3 cm x 5.4 cm. Small benign-appearing bilateral inguinal lymph nodes. There are degenerative changes of the visualized lumbar spine. CT/Abdomen/Pelvis WITH Contrast IMPRESSION: Status post cholecystectomy. Scattered sigmoid diverticula. Electronically Signed: Feng Neri MD at 9:40 EDT , CC: Dr. Zayra Napier, [employer] Strategist: Signed Normal [facility] Basophil percentageOrdered B y: Zayra Napier on 10-04-2023 Bilirubin [Mass/Vol] 1.30 mg/dL 0.20-1.00 [facility] Comment on above: For patients on eltr ombopag therapy, use of Dimension [place] TBIL is not recommended. Chloride [Moles/Vol] 101 mmol/L 98-107 [facility] Glucose [Mass/Vol] 165 mg/dL 74-106 [facility] Comment on above: Fasting Glucose resu lt greater than or equal to 126 mg/dL suggests DIABETES MELLITUS per A.D.A. criteria. Potassium [Moles/Vol] 3.5 mmol/L 3.5-5.1 [facility] Protein [Mass/Vol] 7.4 g/dL 6.4-8.2 [facility] Sodium [Moles/Vol] 136 mmol/L 136-145 [facility] Comprehensive Metabolic Prof ilon 10-04-2023 Albumin [Mass/Vol] 4.1 g/dL Normal 3.2-5.0 [facility] Comment on above: Performed By: #### L [id number] #### [facility] [address] [place], [address] Albumin/Globulin [Mass ratio] 1.2 {ratio} Normal 0.9-2.4 [facility] Comment on above: Performed By: #### L [id number] #### [facility] [address] [place], [address] ALK P 37 U/L Low 45-117 [facility] Comment on above: Performed By: #### L [id number] #### [facility] [address] [place], [address] ALT [Catalytic activity/Vol] 33 U/L Normal 16-61 [facility] Comment on above: Performed By: #### L [id number] #### [facility] [address] [place], [address] AST [Catalytic activity/Vol] 27 U/L Normal 15-37 [facility] Comment on above: Performed By: #### L [id number] #### [facility] [address] [place], [address] Bilirubin [Mass/Vol] 1.30 mg/dL High 0.20-1.00 [facility] Comment on above: Result Comment: For patients on eltrombopag therapy, use of Dimension [place] TBIL is not recommended. Performed By: #### L [id number] #### [facility] [address] [place], [address] BUN/CRE 8.1 RATIO Low 10-20 [facility] Comment on above: Performed By: #### L [id number] #### [facility] [address] [place], [address] CA,Total 9.7 mg/dL Normal 8.5-10.1 [facility] Comment on above: Performed By: #### L [id number] #### [facility] [address] [place], [address] Chloride [Moles/Vol] 101 mmol/L Normal 98-107 [facility] Comment on above: Performed By: #### L [id number] #### [facility] [address] [place], [address] CO2 [Moles/Vol] 28.0 mmol/L Normal 21.0-32.0 [facility] Comment on above: Performed By: #### L [id number] #### [facility] [address] [place], [address] Creatinine [Mass/Vol] 2.34 mg/dL High 0.70-1.30 [facility] Comment on above: Result Comment: The validity of the calculated GFR GFRAA in patients over 70 years has not been determined. Clinical correlation is essential. Performed By: #### L [id number] #### [facility] [address] [place], [address] EST GFR - AA 36 mL/min Low >60 [facility] Comment on above: Result Comment: Afri can Malian GFR Calc Performed By: #### L [id number] #### [facility] [address] [place], [address] GAP 7 Normal 5-15 [facility] Comment on above: Performed By: #### L [id number] #### [facility] [address] [place], [address] GFR/1.73 sq M.predicted among non-blacks MDRD (S/P/Bld) [Vol rate/Area] 30 mL/min/{1.73_m2} Low >60 [facility] Comment on above: Result Comment: Non- GFR Calc Performed By: #### L [id number] #### [facility] [address] [place], [address] Globulin (S) [Mass/Vol] 3.3 g/dL Normal 2.2-4.2 [facility] Comment on above: Performed By: #### L [id number] #### [facility] [address] [place], [address] Glucose [Mass/Vol] 165 mg/dL High 74-106 [facility] Comment on above: Result Comment: Fast ing Glucose result greater than or equal to 126 mg/dL suggests DIABETES MELLITUS per A.D.A. criteria. Performed By: #### L [id number] #### [facility] [address] [place], [address] Potassium [Moles/Vol] 3.5 mmol/L Normal 3.5-5.1 [facility] Comment on above: Performed By: #### L [id number] #### [facility] [address] [place], [address] Sodium [Moles/Vol] 136 mmol/L Normal 136-145 [facility] Comment on above: Performed By: #### L [id number] #### [facility] [address] [place], [address] T PROT 7.4 g/dL Normal 6.4-8.2 [facility] Comment on above: Performed By: #### L [id number] #### [facility] [address] [place], [address] Urea nitrogen [Mass/Vol] 19 mg/dL High 7-18 [facility] Comment on above: Performed By: #### L [id number] #### [facility] [address] [place], [address] Laboratory - Chemistry and C hemistry - challengeOrdered By: Zayra Napier on 10-04-2023 Albumin/Globulin [Mass ratio] 1.2 {ratio} 0.9-2.4 [facility] ALP [Catalytic activity/Vol] 37 U/L 45-117 [facility] ALT [Catalytic activity/Vol] 33 U/L 16-61 [facility] CO2 [Moles/Vol] 28.0 mmol/L 21.0-32.0 [facility] Globulin (S) [Mass/Vol] 3.3 g/dL 2.2-4.2 [facility] Urea nitrogen/Creatinine [Mass ratio] 8.1 mg/mg 10-20 [facility] No Panel InformationOrdered By: Zayra Napier on 10-04-2023 Estimated GFR (MDRD) Amer 36 mL/min >60 [facility] Comment on above: GFR Calc Estimated GFR (MDRD) Non-Af Amer 30 mL/min >60 [facility] Comment on above: Non- GFR Calc Serum or plasma calcium elaina urement (mass/volume)Ordered By: Zayra Napier on 10-04-2023 Calcium [Mass/Vol] 9.7 mg/dL 8.5-10.1 [facility] Serum or plasma creatinine m easurement (mass/volume)Ordered By: Zayra Napier on 10-04-2023 Creatinine [Mass/Vol] 2.34 mg/dL 0.70-1.30 [facility] Comment on above: The validity of the calculated GFR & GFRAA in patients over 70 years has not been determined. Clinical correlation is essential. Serum or plasma urea nitroge n measurement (mass/volume)Ordered By: Zayra Napier on 10-04-2023 Urea nitrogen [Mass/Vol] 19 mg/dL 7-18 [facility] Thin prep Papanicolaou smear with manual screeningOrdered By: Zayra Napier on 10-04-2023 Thin prep Papanicolaou smear with manual screening 4.1 g/dL 3.2-5.0 [facility] Thin prep Papanicolaou smear with manual screening 27 U/L 15-37 [facility] Thin prep Papanicolaou smear with manual screening 7 5-15 [facility] Absolute lymphocyte countOrd ered By: Zayra Napier on 08-23-2023 Lymphocytes Auto (Unsp spec) [#/Vol] 2.34 10*3/uL 0.83-4.51 [facility] Automated lymphocyte count a s percentage of total leukocytesOrdered By: Zayra Napier on 08-23-2023 Lymphocytes/100 WBC Auto (Unsp spec) 17.4 % 19-41 [facility] Basophil percentageOrdered B y: Zayra Napier on 08-23-2023 Basophils/100 WBC (Bld) 0.3 % 0-1 [facility] Bilirubin [Mass/Vol] 2.00 mg/dL 0.20-1.00 [facility] Comment on above: For patients on eltr ombopag therapy, use of Dimension [place] TBIL is not recommended. Chloride [Moles/Vol] 97 mmol/L 98-107 [facility] Eosinophils/100 WBC (Bld) 0.1 % 0-5 [facility] Glucose [Mass/Vol] 181 mg/dL 74-106 [facility] Comment on above: Fasting Glucose resu lt greater than or equal to 126 mg/dL suggests DIABETES MELLITUS per A.D.A. criteria. Hemoglobin (Bld) [Mass/Vol] 16.0 g/dL 13.0-16.5 [facility] Monocytes/100 WBC (Bld) 9.1 % 0-10 [facility] Neutrophils (Bld) [#/Vol] 9.8 10*3/uL 2.0-7.7 [facility] Neutrophils/100 WBC (Bld) 72.7 % 47-70 [facility] Potassium [Moles/Vol] 4.0 mmol/L 3.5-5.1 [facility] Protein [Mass/Vol] 7.7 g/dL 6.4-8.2 [facility] Sodium [Moles/Vol] 133 mmol/L 136-145 [facility] WBC (Bld) [#/Vol] 13.4 10*3/uL 4.4-11.[address] [facility] CBC W/Diff, Automatedon 08-08 Absolute Lymph 2.34 X10 3/uL Normal 0.83-4.51 [facility] Comment on above: Performed By: #### L 501.6710, L100.0100, L501.2450, L101.9900, L500.4050 #### [facility] [address] [place], [address] Absolute Neut 9.8 X10 3/uL High 2.0-7.7 [facility] Comment on above: Performed By: #### L [id number], L100.0100, L501.2450, L101.9900, L500.4050 #### [facility] [address] [place], [address] Basophils/100 WBC (Bld) 0.3 % Normal 0-1 [facility] Comment on above: Performed By: #### L [id number], L100.0100, L501.2450, L101.9900, L500.4050 #### [facility] [address] [place], [address] Eosinophils/100 WBC (Bld) 0.1 % Normal 0-5 [facility] Comment on above: Performed By: #### L 501.6710, L100.0100, L501.2450, L101.9900, L500.4050 #### [facility] [address] [place], [address] Erythrocyte distribution width (RBC) [Ratio] 11.9 % Normal 11.6-14.6 [facility] Comment on above: Performed By: #### L [id number], L100.0100, L501.2450, L101.9900, L500.4050 #### [facility] [address] [place], [address] Hematocrit (Bld) [Volume fraction] 45.7 % Normal 40-54 [facility] Comment on above: Performed By: #### L 501.6710, L100.0100, L501.2450, L101.9900, L500.4050 #### [facility] [address] [place], [address] Hemoglobin (Bld) [Mass/Vol] 16.0 g/dL Normal 13.0-16.5 [facility] Comment on above: Performed By: #### L 501.6710, L100.0100, L501.2450, L101.9900, L500.4050 #### [facility] [address] [place], [address] IG% 0.400 Normal 0.0-0.9 [facility] Comment on above: Result Comment: IG% - Immature Granulocytes (promyelocytes, myelocytes and metamyelocytes) > 1% indicates that a LEFT SHIFT is Present. Performed By: #### L 501.6710, L100.0100, L501.2450, L101.9900, L500.4050 #### [facility] [address] [place], [address] Lymphocytes/100 WBC (Bld) 17.4 % Low 19-41 [facility] Comment on above: Performed By: #### L 501.6710, L100.0100, L501.2450, L101.9900, L500.4050 #### [facility] [address] [place], [address] MCH (RBC) [Entitic mass] 31.4 pg Normal 27.0-32.0 [facility] Comment on above: Performed By: #### L 501.6710, L100.0100, L501.2450, L101.9900, L500.4050 #### [facility] [address] [place], [address] MCHC (RBC) [Mass/Vol] 35.0 g/dL Normal 32-36 [facility] Comment on above: Performed By: #### L 501.6710, L100.0100, L501.2450, L101.9900, L500.4050 #### [facility] [address] [place], [address] MCV (RBC) [Entitic vol] 89.6 fL Normal 80-94 [facility] Comment on above: Performed By: #### L 501.6710, L100.0100, L501.2450, L101.9900, L500.4050 #### [facility] [address] [place], [address] Monocytes/100 WBC (Bld) 9.1 % Normal 0-10 [facility] Comment on above: Performed By: #### L 501.6710, L100.0100, L501.2450, L101.9900, L500.4050 #### [facility] [address] [place], [address] Neutrophils/100 WBC (Bld) 72.7 % High 47-70 [facility] Comment on above: Performed By: #### L 501.6710, L100.0100, L501.2450, L101.9900, L500.4050 #### [facility] [address] [place], [address] Nucleated RBC (Bld) [#/Vol] 0 10*3/uL Normal 0-5 [facility] Comment on above: Performed By: #### L 501.6710, L100.0100, L501.2450, L101.9900, L500.4050 #### [facility] [address] [place], [address] Platelet mean volume (Bld) [Entitic vol] 11.3 fL Normal 6.2-12.0 [facility] Comment on above: Performed By: #### L 501.6710, L100.0100, L501.2450, L101.9900, L500.4050 #### [facility] [address] [place], [address] Platelets (Bld) [#/Vol] 242 10*3/uL Normal 150-450 [facility] Comment on above: Performed By: #### L 501.6710, L100.0100, L501.2450, L101.9900, L500.4050 #### [facility] [address] [place], [address] RBC (Bld) [#/Vol] 5.10 10*6/uL Normal 4.6-6.[address] [facility] Comment on above: Performed By: #### L 501.6710, L100.0100, L501.2450, L101.9900, L500.4050 #### [facility] [address] [place], [address] RDW SD 39.1 fl Normal 35.1-43.9 [facility] Comment on above: Performed By: #### L 501.6710, L100.0100, L501.2450, L101.9900, L500.4050 #### [facility] [address] [place], [address] WBC (Bld) [#/Vol] 13.4 10*3/uL High 4.4-11.[address] [facility] Comment on above: Performed By: #### L 501.6710, L100.0100, L501.2450, L101.9900, L500.4050 #### [facility] [address] [place], [address] CRPon 08-23-2023 C-REACTIVE PROT < 2.90 Normal 0.0-3.0 [facility] Comment on above: Result Comment: C-Re active Protein (CRP) provides useful information for the diagnosis, therapy and monitoring of inflammatory processes and associated diseases. For the evaluation of Relative Risk for Cardiovascular Disease, a High Sensitivity CRP (HSCRP) should be ordered. Performed By: #### L 501.6710, L100.0100, L501.2450, L101.9900, L500.4050 #### [facility] [address] [place], [address] Comprehensive Metabolic Prof ilon 08-23-2023 Albumin [Mass/Vol] 4.4 g/dL Normal 3.2-5.0 [facility] Comment on above: Performed By: #### L 501.6710, L100.0100, L501.2450, L101.9900, L500.4050 #### [facility] [address] [place], [address] Albumin/Globulin [Mass ratio] 1.3 {ratio} Normal 0.9-2.4 [facility] Comment on above: Performed By: #### L 501.6710, L100.0100, L501.2450, L101.9900, L500.4050 #### [facility] [address] [place], [address] ALK P 41 U/L Low 45-117 [facility] Comment on above: Performed By: #### L 501.6710, L100.0100, L501.2450, L101.9900, L500.4050 #### [facility] [address] [place], [address] ALT [Catalytic activity/Vol] 42 U/L Normal 16-61 [facility] Comment on above: Performed By: #### L 501.6710, L100.0100, L501.2450, L101.9900, L500.4050 #### [facility] [address] [place], [address] AST [Catalytic activity/Vol] 24 U/L Normal 15-37 [facility] Comment on above: Performed By: #### L 501.6710, L100.0100, L501.2450, L101.9900, L500.4050 #### [facility] [address] [place], [address] Bilirubin [Mass/Vol] 2.00 mg/dL High 0.20-1.00 [facility] Comment on above: Result Comment: For patients on eltrombopag therapy, use of Dimension [place] TBIL is not recommended. Performed By: #### L 501.6710, L100.0100, L501.2450, L101.9900, L500.4050 #### [facility] [address] [place], [address] BUN/CRE 12.1 RATIO Normal 10-20 [facility] Comment on above: Performed By: #### L 501.6710, L100.0100, L501.2450, L101.9900, L500.4050 #### [facility] [address] [place], [address] CA,Total 9.9 mg/dL Normal 8.5-10.1 [facility] Comment on above: Performed By: #### L 501.6710, L100.0100, L501.2450, L101.9900, L500.4050 #### [facility] [address] [place], [address] Chloride [Moles/Vol] 97 mmol/L Low 98-107 [facility] Comment on above: Performed By: #### L 501.6710, L100.0100, L501.2450, L101.9900, L500.4050 #### [facility] [address] [place], [address] CO2 [Moles/Vol] 26.0 mmol/L Normal 21.0-32.0 [facility] Comment on above: Performed By: #### L 501.6710, L100.0100, L501.2450, L101.9900, L500.4050 #### [facility] [address] [place], [address] Creatinine [Mass/Vol] 2.57 mg/dL High 0.70-1.30 [facility] Comment on above: Result Comment: The validity of the calculated GFR GFRAA in patients over 70 years has not been determined. Clinical correlation is essential. Performed By: #### L 501.6710, L100.0100, L501.2450, L101.9900, L500.4050 #### [facility] [address] [place], [address] EST GFR - AA 33 mL/min Low >60 [facility] Comment on above: Result Comment: Afri can Malian GFR Calc Performed By: #### L 501.6710, L100.0100, L501.2450, L101.9900, L500.4050 #### [facility] [address] [place], [address] GAP 10 Normal 5-15 [facility] Comment on above: Performed By: #### L 501.6710, L100.0100, L501.2450, L101.9900, L500.4050 #### [facility] [address] [place], [address] GFR/1.73 sq M.predicted among non-blacks MDRD (S/P/Bld) [Vol rate/Area] 27 mL/min/{1.73_m2} Low >60 [facility] Comment on above: Result Comment: Non- GFR Calc Performed By: #### L 501.6710, L100.0100, L501.2450, L101.9900, L500.4050 #### [facility] [address] [place], [address] Globulin (S) [Mass/Vol] 3.3 g/dL Normal 2.2-4.2 [facility] Comment on above: Performed By: #### L 501.6710, L100.0100, L501.2450, L101.9900, L500.4050 #### [facility] [address] [place], [address] Glucose [Mass/Vol] 181 mg/dL High 74-106 [facility] Comment on above: Result Comment: Fast ing Glucose result greater than or equal to 126 mg/dL suggests DIABETES MELLITUS per A.D.A. criteria. Performed By: #### L 501.6710, L100.0100, L501.2450, L101.9900, L500.4050 #### [facility] [address] [place], [address] Potassium [Moles/Vol] 4.0 mmol/L Normal 3.5-5.1 [facility] Comment on above: Performed By: #### L 501.6710, L100.0100, L501.2450, L101.9900, L500.4050 #### [facility] [address] [place], [address] Sodium [Moles/Vol] 133 mmol/L Low 136-145 [facility] Comment on above: Performed By: #### L 501.6710, L100.0100, L501.2450, L101.9900, L500.4050 #### [facility] [address] [place], [address] T PROT 7.7 g/dL Normal 6.4-8.2 [facility] Comment on above: Performed By: #### L 501.6710, L100.0100, L501.2450, L101.9900, L500.4050 #### [facility] [address] [place], [address] Urea nitrogen [Mass/Vol] 31 mg/dL High 7-18 [facility] Comment on above: Performed By: #### L 501.6710, L100.0100, L501.2450, L101.9900, L500.4050 #### [facility] [address] [place], [address] Determination of erythrocyte mean corpuscular volume (MCV)Ordered By: Zayra Napier on 08-23-2023 MCV (RBC) [Entitic vol] 89.6 fL 80-94 [facility] Erythrocyte Sed Rateon 08-22 SED RATE 1 mm/hr Normal 0-20 [facility] Comment on above: Performed By: #### L 501.6710, L100.0100, L501.2450, L101.9900, L500.4050 #### [facility] [place], [address] Erythrocyte distribution wid th ratioOrdered By: Zayra Napier on 08-23-2023 Erythrocyte distribution width (RBC) [Ratio] 11.9 % 11.6-14.6 [facility] Erythrocyte distribution wid th standard deviationOrdered By: Zayra Napier on 08-23-2023 Erythrocyte distribution width (RBC) [Entitic vol] 39.1 fL 35.1-43.9 oste r [facility] Erythrocyte sedimentation ra teOrdered By: Zayra Napier on 08-23-2023 ESR (Bld) [Velocity] 1 mm/h 0-20 [facility] Hematocrit Auto (Bld) [Volum e fraction]Ordered By: Zayra Napier on 08-23-2023 Hematocrit (Bld) [Volume fraction] 45.7 % 40-54 [facility] Immature granulocytes/100 WB C Auto (Bld)Ordered By: Zayra Napier on 08-23-2023 Immature granulocytes/100 WBC (Bld) 0.400 % 0.0-0.9 [facility] Comment on above: IG% - Immature Granu locytes (promyelocytes, myelocytes and metamyelocytes) > 1% indicates that a LEFT SHIFT is Present. Laboratory - Chemistry and C hemistry - challengeOrdered By: Zayra Napier on 08-23-2023 Albumin/Globulin [Mass ratio] 1.3 {ratio} 0.9-2.4 [facility] ALP [Catalytic activity/Vol] 41 U/L 45-117 [facility] ALT [Catalytic activity/Vol] 42 U/L 16-61 [facility] CO2 [Moles/Vol] 26.0 mmol/L 21.0-32.0 [facility] Globulin (S) [Mass/Vol] 3.3 g/dL 2.2-4.2 W [facility] Lipase [Catalytic activity/Vol] 162 U/L 13-75 [facility] Comment on above: Please note:LIPASE r evised reference range effective 22. New Lipase methodology. Expected to produce lower values than the previous assay method. NEW Reference Range: 13 - 75 U/L Urea nitrogen/Creatinine [Mass ratio] 12.1 mg/mg 10-20 [facility] Laboratory - Hematology and Cell countsOrdered By: Zayra Napier on 08-23-2023 MCH (RBC) [Entitic mass] 31.4 pg 27.0-32.0 [facility] MCHC (RBC) [Mass/Vol] 35.0 g/dL 32-36 [facility] Nucleated RBC/100 WBC (Bld) [Ratio] 0 % 0-5 [facility] Platelet mean volume (Bld) [Entitic vol] 11.3 fL 6.2-12.0 [facility] Platelets (Bld) [#/Vol] 242 10*3/uL 150-450 [facility] Lipaseon 08-23-2023 Lipase [Catalytic activity/Vol] 162 U/L High 13-75 [facility] Comment on above: Result Comment: Elisa jenkins note: LIPASE revised reference range effective 22. New Lipase methodology. Expected to produce lower values than the previous assay method. NEW Reference Range: 13 - 75 U/L Performed By: #### L 501.6710, L100.0100, L501.2450, L101.9900, L500.4050 #### [facility] Laboratory [address] [place], [place], [id number] No Panel InformationOrdered By: Zayra Napier on 08-23-2023 C-Reactive Protein Extended Range < 2.90 mg/L 0.0-3.0 [facility] Comment on above: C-Reactive Protein ( CRP) provides useful information for thediagnosis, therapy and monitoring of inflammatory processesand associated diseases. For the evaluation of Relative Riskfor Cardiovascular Disease, a High Sensitivity CRP (HSCRP)should be ordered. Estimated GFR (MDRD) Amer 33 mL/min >60 [facility] Comment on above: GFR Calc Estimated GFR (MDRD) Non-Af Amer 27 mL/min >60 [facility] Comment on above: Non- GFR Calc RBC Auto (Bld) [#/Vol]Ordere d By: Zayra Napier on 08-23-2023 RBC (Bld) [#/Vol] 5.10 10*6/uL 4.6-6.[address] [facility] Serum or plasma calcium elaina urement (mass/volume)Ordered By: Zayra Napier on 08-23-2023 Calcium [Mass/Vol] 9.9 mg/dL 8.5-10.1 [facility] Serum or plasma creatinine m easurement (mass/volume)Ordered By: Zayra Napier on 08-23-2023 Creatinine [Mass/Vol] 2.57 mg/dL 0.70-1.30 [facility] Comment on above: The validity of the calculated GFR & GFRAA in patients over 70 years has not been determined. Clinical correlation is essential. Serum or plasma urea nitroge n measurement (mass/volume)Ordered By: Zayra Napier on 08-23-2023 Urea nitrogen [Mass/Vol] 31 mg/dL 7-18 [facility] Thin prep Papanicolaou smear with manual screeningOrdered By: Zayra Napier on 08-23-2023 Thin prep Papanicolaou smear with manual screening 4.4 g/dL 3.2-5.0 [facility] Thin prep Papanicolaou smear with manual screening 24 U/L 15-37 [facility] Thin prep Papanicolaou smear with manual screening 10 5-15 [facility] Absolute lymphocyte countOrd ered By: ED PROVIDER on 08-13-2023 Lymphocytes Auto (Unsp spec) [#/Vol] 0.79 10*3/uL 0.83-4.51 [facility] Automated lymphocyte count a s percentage of total leukocytesOrdered By: ED PROVIDER on 08-13-2023 Lymphocytes/100 WBC Auto (Unsp spec) 19.1 % 19-41 [facility] Basic Metabolic Profile (BMP )on 08-13-2023 BUN/CRE 23.3 RATIO High 10-20 [facility] Comment on above: Performed By: #### L 501.6710, L100.0100, L501.2450, L101.9900, L500.4050 #### [facility] Laboratory [address] [place], [place], [id number] CA,Total 9.3 mg/dL Normal 8.5-10.1 [facility] Comment on above: Performed By: #### L 501.6710, L100.0100, L501.2450, L101.9900, L500.4050 #### [facility] [address] [place], [address] Chloride [Moles/Vol] 103 mmol/L Normal 98-107 [facility] Comment on above: Performed By: #### L 501.6710, L100.0100, L501.2450, L101.9900, L500.4050 #### [facility] [address] [place], [address] CO2 [Moles/Vol] 24.0 mmol/L Normal 21.0-32.0 [facility] Comment on above: Performed By: #### L 501.6710, L100.0100, L501.2450, L101.9900, L500.4050 #### [facility] [address] [place], [address] Creatinine [Mass/Vol] 0.95 mg/dL Normal 0.70-1.30 [facility] Comment on above: Result Comment: The validity of the calculated GFR GFRAA in patients over 70 years has not been determined. Clinical correlation is essential. Performed By: #### L 501.6710, L100.0100, L501.2450, L101.9900, L500.4050 #### [facility] [address] [place], [address] ECRCL 96.71 ml/min Normal [facility] Comment on above: Performed By: #### L 501.6710, L100.0100, L501.2450, L101.9900, L500.4050 #### [facility] [address] [place], [address] EST GFR - AA 104 mL/min Normal >60 [facility] Comment on above: Result Comment: Afri can Malian GFR Calc Performed By: #### L 501.6710, L100.0100, L501.2450, L101.9900, L500.4050 #### [facility] [address] [place], [address] GAP 10 Normal 5-15 [facility] Comment on above: Performed By: #### L 501.6710, L100.0100, L501.2450, L101.9900, L500.4050 #### [facility] [address] [place], [address] GFR/1.73 sq M.predicted among non-blacks MDRD (S/P/Bld) [Vol rate/Area] 86 mL/min/{1.73_m2} Normal >60 [facility] Comment on above: Result Comment: Non- GFR Calc Performed By: #### L 501.6710, L100.0100, L501.2450, L101.9900, L500.4050 #### [facility] [address] [place], [address] Glucose [Mass/Vol] 205 mg/dL High 74-106 [facility] Comment on above: Result Comment: Gluc ose result greater than or equal to 200 mg/dL suggests DIABETES MELLITUS per A.D.A. criteria. Performed By: #### L 501.6710, L100.0100, L501.2450, L101.9900, L500.4050 #### [facility] [address] [place], [address] Potassium [Moles/Vol] 4.8 mmol/L Normal 3.5-5.1 [facility] Comment on above: Result Comment: Mode rate Hemolysis, Result may be falsely increased. Performed By: #### L 501.6710, L100.0100, L501.2450, L101.9900, L500.4050 #### [facility] [address] [place], [address] Sodium [Moles/Vol] 137 mmol/L Normal 136-145 [facility] Comment on above: Performed By: #### L 501.6710, L100.0100, L501.2450, L101.9900, L500.4050 #### [facility] [address] [place], [address] Urea nitrogen [Mass/Vol] 22 mg/dL High 7-18 [facility] Comment on above: Performed By: #### L 501.6710, L100.0100, L501.2450, L101.9900, L500.4050 #### [facility] [address] [place], [address] Basophil percentageOrdered B y: ED PROVIDER on 08-13-2023 Basophil percentage 0 SEEN /hpf 0-5 [facility] Basophils/100 WBC (Bld) 0.5 % 0-1 [facility] Chloride [Moles/Vol] 103 mmol/L 98-107 [facility] Eosinophils/100 WBC (Bld) 0.0 % 0-5 [facility] Glucose [Mass/Vol] 205 mg/dL 74-106 [facility] Comment on above: Glucose result great er than or equal to 200 mg/dLsuggests DIABETES MELLITUS per A.D.A. criteria. Hemoglobin (Bld) [Mass/Vol] 14.6 g/dL 13.0-16.5 [facility] Monocytes/100 WBC (Bld) 15.7 % 0-10 [facility] Neutrophils (Bld) [#/Vol] 2.7 10*3/uL 2.0-7.7 [facility] Neutrophils/100 WBC (Bld) 64.2 % 47-70 [facility] Potassium [Moles/Vol] 4.8 mmol/L 3.5-5.1 [facility] Comment on above: Moderate Hemolysis, Result may be falsely increased. Sodium [Moles/Vol] 137 mmol/L 136-145 [facility] WBC (Bld) [#/Vol] 4.1 10*3/uL 4.4-11.0 [facility] Bedside Glucoseon 03-05-2024 FINGERSTICK GLU 211 mg/dL High 74-106 [facility] Comment on above: Result Comment: JOSÉ GEMENT OF PATIENT CARE PER NURSING PROTOCOL Performed By: #### L 501.6710, L100.0100, L501.2450, L101.9900, L500.4050 #### [facility] Laboratory [address] [place], [address] Bilirubin Test strip Ql (U)O rdered By: ED PROVIDER on 08-13-2023 Bilirubin Ql (U) Negative Negative [facility] Blood manual differential co mment interpretation (narrative result)Ordered By: ED PROVIDER on 08-13-2023 Manual differential comment Chaka (Bld) [Interp] SCANNED [facility] Blood platelet adequacy dete ction by light microscopyOrdered By: ED PROVIDER on 08-13-2023 Platelets LM Ql (Bld) MOD DEC ADEQ [facility] CBC W/Diff, Automatedon PLT EST MOD DEC Normal [facility] Comment on above: Performed By: #### L 501.6710, L100.0100, L501.2450, L101.9900, L500.4050 #### [facility] [address] [place], [address] SMEAR COMMENT SCANNED Normal [facility] Comment on above: Performed By: #### L 501.6710, L100.0100, L501.2450, L101.9900, L500.4050 #### [facility] Laboratory [address] [place], [address] Determination of erythrocyte mean corpuscular volume (MCV)Ordered By: ED PROVIDER on 08-13-2023 MCV (RBC) [Entitic vol] 89.3 fL 80-94 W [facility] Emergency Department Summary on 08-13-2023 Emergency Department Summary [facility] Medical Records Department [address] [place] [address] Emergency Department Summary 08/13/23 MR#: [id number] Acct: [id number] Name: MORENO VILLEGAS Rep #: [id number] : 1960 63 From: Wily Maldonado DO PCP: Dr. Zayra Napier DO Status:DEP ER Location: ED HPI HPI - GI History of Present Illness Chief Complaint: Nausea/Vomiting Informant: patient Nausea/Vomiting/Emesis GI Symptom: Positive for Nausea and Vomiting Onset: Yesterday Quality: Positive for Nonbilious; Negative for Blood streaks, Coffee ground or Hematemesis Diarrhea/Melena/Hemato chezia GI Symptom: Negative for Diarrhea, Melena or Hematochezia Associated Symptoms Associated Symptoms: Negative for Dysuria, Frequency or Hematuria Narrative Narrative: Patient presents with nausea and vomiting that began yesterday. Patient states it came on gradually. Patient denies any hematemesis or coffee-ground emesis. Patient denies any abdominal pain with this. Patient denies any diarrhea, melena, or hematochezia. Patient denies any dysuria, frequency, or hematuria. Patient admits to some chills and sweats but states that is mainly whenever he has vomiting. Patient denies any chest pain or shortness of breath. Patient denies any fevers. Patient states nothing makes his nausea and vomiting any better and nothing makes it any worse. [facility] Medical History Former tobacco use GERD (gastroesophageal reflux disease) Hypertension Obesity JUANA (obstructive sleep apnea) Type 2 diabetes mellitus Home Medications pantoprazole 40 mg tablet,delayed release (Protonix) 40 mg PO BID 30 days #60 tabs 12/14/22 [Rx Last Taken Unknown] sucralfate 1 gram tablet (Carafate) 1 g PO BID #30 tabs 03/07/23 [Rx Last Taken Unknown] insulin glargine-yfgn 100 unit/mL (3 mL) subcutaneous pen See Rx Instructions subcut DAILY 03/11/23 [History Last Taken Unknown] metformin 500 mg tablet 500 mg PO BID 03/11/23 [History Last Taken Unknown] ondansetron 4 mg disintegrating tablet 4 mg PO Q8H PRN PRN Nausea #10 tabs 08/13/23 [Rx Last Taken Unknown] Allergy/AdvReac Type Severity Reaction Status Date / Time No Known Allergies Allergy Verified 08/13/23 04:07 Family History Mother Diabetes Heart disease Cancer Father No problems noted. Surgical History History of cholecystectomy History of surgery on lower extremity Social History household members: other details: Notes his son lives with him. Smoking Status: Former smoker alcohol intake: never substance use type: does not use ROS ROS ED Constitutional Constitutional ED: Reports chills, subjective and sweats; Denies fever(s) Eyes Eyes: Denies blurry vision or change in vision ENT ENT ED: Denies rhinorrhea or sore throat Cardiovascular Cardiovascular: Denies chest pain or palpitations Respiratory/Chest Respiratory/Chest: Denies cough or dyspnea Gastrointestinal Gastrointestinal: Reports nausea and vomiting; Denies abdominal pain, constipation, diarrhea or melena Genitourinary Genitourinary ED: Denies dysuria or hematuria Musculoskeletal Musculoskeletal: Denies back pain or neck pain Integumentary Denies abscess or rash Neurologic Neurologic: Denies headache(s) or weakness Allergic/Immunologic Allergic/Immunologic ED: Denies mouth swelling or urticaria EXAM Physical Exam Const Vital Signs: 08/13/23 04:05 Temperature 98.1 F Temperature Source Oral Pulse Rate 101 H Respiratory Rate 16 Blood Pressure 188/104 H Blood Pressure Mean 132 Pulse Ox 98 Oxygen Delivery Method Room Air Positive well nourished and well developed General Appearance ED: well developed and NAD HEENT Reports moist mucous membranes Neck supple and no JVD Resp normal respiratory effort and clear to auscultation bilaterally Cardio regular rate and regular rhythm GI non-tender and non-distended Palpation: soft Neuro CN's II-XII intact bilaterally, moves all extremities and no sensory deficits noted Sensorium / Orientation: alert Motor Exam: strength 5/5 throughout Psych mental status grossly normal and thought process normal MDM MDM MDM Narrative Medical decision making narrative: Differential diagnosis includes gastroenteritis, DKA, viral illness, gastritis, urinary tract infection, peptic ulcer disease, and GERD. CBC will be obtained to assess for leukocytosis or anemia. Basic metabolic profile will be obtained to assess for electrolyte abnormality and renal function. Urinalysis will be obtained to assess for urinary tract infection, hematuria, and glucosuria. COVID-19, influenza, (more content not included)... Normal [facility] Erythrocyte distribution wid th ratioOrdered By: ED PROVIDER on 08-13-2023 Erythrocyte distribution width (RBC) [Ratio] 11.9 % 11.6-14.6 [facility] Erythrocyte distribution wid th standard deviationOrdered By: ED PROVIDER on 08-13-2023 Erythrocyte distribution width (RBC) [Entitic vol] 38.2 fL 35.1-43.9 [facility] Hematocrit Auto (Bld) [Volum e fraction]Ordered By: ED PROVIDER on 08-13-2023 Hematocrit (Bld) [Volume fraction] 41.8 % 40-54 [facility] Immature granulocytes/100 WB C Auto (Bld)Ordered By: ED PROVIDER on 08-13-2023 Immature granulocytes/100 WBC (Bld) 0.500 % 0.0-0.9 [facility] Comment on above: IG% - Immature Granu locytes (promyelocytes, myelocytes and metamyelocytes) > 1% indicates that a LEFT SHIFT is Present. Ketones Test strip Ql (U)Ord ered By: ED PROVIDER on 08-13-2023 Ketones Ql (U) 50 mg/dl Negative [facility] Laboratory - Chemistry and C hemistry - challengeOrdered By: ED PROVIDER on 08-13-2023 CO2 [Moles/Vol] 24.0 mmol/L 21.0-32.0 [facility] Urea nitrogen/Creatinine [Mass ratio] 23.3 mg/mg 10-20 [facility] Laboratory - Hematology and Cell countsOrdered By: ED PROVIDER on 08-13-2023 MCH (RBC) [Entitic mass] 31.2 pg 27.0-32.0 [facility] MCHC (RBC) [Mass/Vol] 34.9 g/dL 32-36 [facility] Nucleated RBC/100 WBC (Bld) [Ratio] 0 % 0-5 [facility] Platelet mean volume (Bld) [Entitic vol] 11.3 fL 6.2-12.0 [facility] Platelets (Bld) [#/Vol] 73 10*3/uL 150-450 [facility] Laboratory - Microbiology an d Antimicrobial susceptibilityOrdered By: Wily Maldonado on 08-13-2023 SARS-CoV-2 (COVID-19) RNA JERILYN+probe Ql (Unsp spec) [facility] SARS-CoV-2 (COVID-19) RNA JERILYN+probe Ql (Unsp spec) [facility] M100.678on 08-13-2023 M100.678 SARS-CoV-2 (COVID 19 ) Negative INFLUENZA A Negative INFLUENZA B Negative RSV PCR Negative Normal [facility] Comment on above: Performed By: #### L 501.6710, L100.0100, L501.2450, L101.9900, L500.4050 #### [facility] Laboratory [address] [place], [address] Mucus LM Ql (Urine sed)Order ed By: ED PROVIDER on 08-13-2023 Mucus Ql (Urine sed) 0 SEEN /hpf [facility] Nitrite Test strip Ql (U)Ord ered By: ED PROVIDER on 08-13-2023 Nitrite Ql (U) Negative Negative [facility] No Panel InformationOrdered By: ED PROVIDER on 08-13-2023 Urine RBC 5-10 SEEN /hpf 0-5 [facility] Estimated Creatinine Clearance Calc 96.71 ml/min [facility] Estimated GFR (MDRD) Amer 104 mL/min >60 [facility] Comment on above: GFR Calc Estimated GFR (MDRD) Non-Af Amer 86 mL/min >60 [facility] Comment on above: Non- GFR Calc Protein Test strip Ql (U)Ord ered By: ED PROVIDER on 08-13-2023 Protein Ql (U) 500 mg/dl Negative [facility] RBC Auto (Bld) [#/Vol]Ordere d By: ED PROVIDER on 08-13-2023 RBC (Bld) [#/Vol] 4.68 10*6/uL 4.6-6.[address] [facility] Serum or plasma calcium elaina urement (mass/volume)Ordered By: ED PROVIDER on 08-13-2023 Calcium [Mass/Vol] 9.3 mg/dL 8.5-10.1 [facility] Serum or plasma creatinine m easurement (mass/volume)Ordered By: ED PROVIDER on 08-13-2023 Creatinine [Mass/Vol] 0.95 mg/dL 0.70-1.30 [facility] Comment on above: The validity of the calculated GFR & GFRAA in patients over 70 years has not been determined. Clinical correlation is essential. Serum or plasma urea nitroge n measurement (mass/volume)Ordered By: ED PROVIDER on 08-13-2023 Urea nitrogen [Mass/Vol] 22 mg/dL 7-18 [facility] Squamous epithelial cells de tection in urine sediment by light microscopyOrdered By: ED PROVIDER on 08-13-2023 Epithelial cells.squamous LM Ql (Urine sed) 0 SEEN /hpf 0-5 [facility] Thin prep Papanicolaou smear with manual screeningOrdered By: ED PROVIDER on 08-13-2023 Thin prep Papanicolaou smear with manual screening 10 5-15 [facility] Thin prep Papanicolaou smear with manual screeningOrdered By: Wily Maldonado on 08-13-2023 Thin prep Papanicolaou smear with manual screening 211 mg/dL 74-106 [facility] Comment on above: MANAGEMENT OF PATIEN T CARE PER NURSING PROTOCOL Urinalysis, Completeon 08-12 RBC 5-10 SEEN Normal 0-5 [facility] Comment on above: Order Comment: CLEAN CATCH Performed By: #### L 400.0001 #### [facility] Laboratory [address] [place], [address] BACTERIA 0 SEEN Normal None Seen [facility] Comment on above: Order Comment: CLEAN CATCH Performed By: #### L 400.0001 #### [facility] [address] [place], [address] EPI,SQUAMOUS 0 SEEN Normal 0-5 [facility] Comment on above: Order Comment: CLEAN CATCH Performed By: #### L 400.0001 #### [facility] [address] [place], [address] Mucus Ql (Urine sed) 0 SEEN Normal [facility] Comment on above: Order Comment: CLEAN CATCH Performed By: #### L 400.0001 #### [facility] [address] [place], [address] WBC 0 SEEN Normal 0-5 [facility] Comment on above: Order Comment: CLEAN CATCH Performed By: #### L 400.0001 #### [facility] [address] [place], [address] Urine blood detectionOrdered By: ED PROVIDER on 08-13-2023 RBC Ql (U) 25 /ul Negative [facility] Urine clarityOrdered By: ED PROVIDER on 08-13-2023 Clarity (U) Clear Clear [facility] Urine color determinationOrd ered By: ED PROVIDER on 08-13-2023 Color (U) Yellow Yellow [facility] Urine glucose detectionOrder ed By: ED PROVIDER on 08-13-2023 Glucose Ql (U) 100 mg/dl Normal [facility] Urine leukocyte esterase det ection by dipstickOrdered By: ED PROVIDER on 08-13-2023 Leukocyte esterase Test strip Ql (U) Negative Negative [facility] Urine pHOrdered By: ED PROVI YENIFER on 08-13-2023 pH (U) 6.5 [pH] 5.0 - 8.0 [facility] Urine sediment bacteria coun t by microscopy (number/high power field)Ordered By: ED PROVIDER on 08-13-2023 Bacteria LM.HPF (Urine sed) [#/Area] 0 /[HPF] None Seen [facility] Urine specific gravity measu rementOrdered By: ED PROVIDER on 08-13-2023 Specific gravity (U) [Rel density] 1.030 1.002-1.030 [facility] Urine urobilinogen measureme ntOrdered By: ED PROVIDER on 08-13-2023 Urobilinogen Ql (U) 1 mg/dl Normal [facility] Basophil percentageOrdered B y: Zayra Napier on 06-28-2023 Cholesterol [Mass/Vol] 104 mg/dL <200 [facility] [facility] Comment on above: <200 mg/dL Desirable 200-240 mg/dL Borderline >240 mg/dL High Risk Triglyceride [Mass/Vol] 87 mg/dL <199 [facility] Comment on above: The drugs N-Acetylcy steine and Metamizole may falsely depress this assay.Serum Triglycerides Reference Interval Normal <150 mg/dL Borderline high 150 - 199 mg/dL High 200 - 499 mg/dL Very High > or = 500 mg/dL High density lipoprotein (HD L) measurementOrdered By: Zayra Napier on 06-28-2023 Cholesterol in HDL (Body fld) [Mass/Vol] 54 mg/dL >40 [facility] Comment on above: The drugs N-Acetylcy steine and Metamizole may falsely depress this assay. Reference Range HDL <40 mg/dL Low HDL Cholesterol HDL >or= 60 mg/dL High HDL Cholesterol Low density lipoprotein (LDL ) cholesterol measurementOrdered By: Zayra Napier on 06-28-2023 Cholesterol in LDL (Body fld) [Moles/Vol] 33 mg/dL 0-130 [facility] Screening prostate specific antigen (PSA) measurementOrdered By: Zayra Napier on 06-28-2023 Prostate specific Ag IA [Mass/Vol] 0.31 ng/mL 0.00-4.00 [facility] Comment on above: This test was perfor med using the TPSA assay method for the[employer] chemistry system. Values obtained with differentassay methods cannot be used interchangably.When changing PSA assays in the course of monitoring apatient, additional sequential testing should be carriedout to confirm baseline values. Thin prep Papanicolaou smear with manual screeningOrdered By: Zayra Napier on 06-28-2023 Thin prep Papanicolaou smear with manual screening 2700.0 mg/L NO RANGE EST. [facility] Urine albumin/creatinine rat io for detection of microalbuminuriaOrdered By: Zayra Napier on 06-28-2023 Albumin/Creatinine DL <= 1.0 mg/L (24H U) [Ratio] 2250.0 mg/g CRE <30 [facility] Urine creatinine measurement (mass/volume)Ordered By: Zayra Napier on 06-28-2023 Creatinine (U) [Mass/Vol] 120.00 mg/dL NO RANGE EST. [facility] Very low density lipoprotein (VLDL) cholesterol measurementOrdered By: Zayra Napier on 06-28-2023 Cholesterol in VLDL Calc [Moles/Vol] 17 mg/dL 5-40 [facility] Whole blood hemoglobin A1c/t otal hemoglobin ratio (mass fraction)Ordered By: Zayra Napier on 06-28-2023 HbA1c (Bld) [Mass fraction] 6.6 % 3.8-5.6 [facility] Comment on above: Normal < 5.7 % Predi abetic 5.7 - 6.4 % Diabetic >or= 6.5 % Please note range changes. Absolute lymphocyte countOrd ered By: Matt Black on 05-21-2023 Lymphocytes Auto (Unsp spec) [#/Vol] 2.44 10*3/uL 0.83-4.51 [facility] Basophil percentageOrdered B y: Matt Black on 05-21-2023 Bilirubin [Mass/Vol] 1.10 mg/dL 0.20-1.00 [facility] Comment on above: For patients on eltr ombopag therapy, use of Dimension [place] TBIL is not recommended. Chloride [Moles/Vol] 106 mmol/L 98-107 [facility] Glucose [Mass/Vol] 145 mg/dL 74-106 [facility] Comment on above: Fasting Glucose resu lt greater than or equal to 126 mg/dL suggests DIABETES MELLITUS per A.D.A. criteria. Potassium [Moles/Vol] 3.6 mmol/L 3.5-5.1 [facility] Protein [Mass/Vol] 6.5 g/dL 6.4-8.2 [facility] Sodium [Moles/Vol] 137 mmol/L 136-145 [facility] Basophils/100 WBC (Bld) 0.7 % 0-1 [facility] Eosinophils/100 WBC (Bld) 1.1 % 0-5 [facility] Neutrophils (Bld) [#/Vol] 5.3 10*3/uL 2.0-7.7 [facility] Neutrophils/100 WBC (Bld) 60.7 % 47-70 [facility] WBC (Bld) [#/Vol] 8.8 10*3/uL 4.4-11.0 [facility] Blood erythrocytes count (nu mber/volume)Ordered By: Matt Black on 05-21-2023 RBC (Bld) [#/Vol] 4.61 10*6/uL 4.6-6.[address] [facility] Blood hemoglobin measurement (mass/volume)Ordered By: Matt Black on 05-21-2023 Hemoglobin (Bld) [Mass/Vol] 14.7 g/dL 13.0-16.5 [facility] Blood lymphocytes/100 leukoc ytesOrdered By: Matt Black on 05-21-2023 Lymphocytes/100 WBC (Bld) 27.8 % 19-41 [facility] Blood monocytes/100 leukocyt esOrdered By: Matt Black on 05-21-2023 Monocytes/100 WBC (Bld) 9.6 % 0-10 [facility] Blood platelet mean volumeOr dered By: Matt Black on 05-21-2023 Platelet mean volume (Bld) [Entitic vol] 10.8 fL 6.2-12.0 [facility] Determination of erythrocyte mean corpuscular volume (MCV)Ordered By: Matt Black on 05-21-2023 MCV (RBC) [Entitic vol] 91.1 fL 80-94 [facility] Hematocrit Auto (Bld) [Volum e fraction]Ordered By: Matt Black on 05-21-2023 Hematocrit (Bld) [Volume fraction] 42.0 % 40-54 [facility] Laboratory - Chemistry and C hemistry - challengeOrdered By: Matt Black on 05-21-2023 ALP [Catalytic activity/Vol] 35 U/L 45-117 [facility] ALT [Catalytic activity/Vol] 22 U/L 16-61 [facility] CO2 [Moles/Vol] 28.0 mmol/L 21.0-32.0 [facility] Globulin (S) [Mass/Vol] 3.2 g/dL 2.2-4.2 [facility] Lipase [Catalytic activity/Vol] 41 U/L 13-75 [facility] Comment on above: Please note:LIPASE r evised reference range effective 22. New Lipase methodology. Expected to produce lower values than the previous assay method. NEW Reference Range: 13 - 75 U/L Urea nitrogen/Creatinine [Mass ratio] 13.2 mg/mg 10-20 [facility] Laboratory - Hematology and Cell countsOrdered By: Matt Black on 05-21-2023 Erythrocyte distribution width (RBC) [Entitic vol] 42.9 fL 35.1-43.9 [facility] Erythrocyte distribution width (RBC) [Ratio] 13.0 % 11.6-14.6 [facility] Immature granulocytes/100 WBC (Bld) 0.100 % 0.0-0.9 [facility] Comment on above: IG% - Immature Granu locytes (promyelocytes, myelocytes and metamyelocytes) > 1% indicates that a LEFT SHIFT is Present. MCH (RBC) [Entitic mass] 31.9 pg 27.0-32.0 [facility] Nucleated RBC/100 WBC (Bld) [Ratio] 0 % 0-5 [facility] MCHC Auto (RBC) [Mass/Vol]Or dered By: Matt Black on 05-21-2023 MCHC (RBC) [Mass/Vol] 35.0 g/dL 32-36 [facility] No Panel InformationOrdered By: Matt Black on 05-21-2023 Estimated Creatinine Clearance Calc 98.28 ml/min [facility] Estimated GFR (MDRD) Amer 121 mL/min >60 [facility] Comment on above: GFR Calc Estimated GFR (MDRD) Non-Af Amer 100 mL/min >60 [facility] Comment on above: Non- GFR Calc Platelets bldOrdered By: Jose Black on 05-21-2023 Platelets (Bld) [#/Vol] 189 10*3/uL 150-450 [facility] Serum or plasma albumin elaina urement (mass/volume)Ordered By: Matt Black on 05-21-2023 Albumin [Mass/Vol] 3.3 g/dL 3.2-5.0 [facility] Serum or plasma albumin/glob ulin mass ratioOrdered By: Matt Black on 05-21-2023 Albumin/Globulin [Mass ratio] 1.0 {ratio} 0.9-2.4 [facility] Serum or plasma calcium elaina urement (mass/volume)Ordered By: Matt Black on 05-21-2023 Calcium [Mass/Vol] 8.9 mg/dL 8.5-10.1 [facility] Serum or plasma creatinine m easurement (mass/volume)Ordered By: Matt Black on 05-21-2023 Creatinine [Mass/Vol] 0.83 mg/dL 0.70-1.30 [facility] Comment on above: The validity of the calculated GFR & GFRAA in patients over 70 years has not been determined. Clinical correlation is essential. Serum or plasma urea nitroge n measurement (mass/volume)Ordered By: Matt Black on 05-21-2023 Urea nitrogen [Mass/Vol] 11 mg/dL 7-18 [facility] Thin prep Papanicolaou smear with manual screeningOrdered By: Matt Black on 05-21-2023 Thin prep Papanicolaou smear with manual screening 13 U/L 15-37 [facility] Thin prep Papanicolaou smear with manual screening 3 5-15 [facility] Basophil percentageOrdered B y: Zayra Hinojosa on 03-13-2023 Chloride [Moles/Vol] 102 mmol/L 98-107 [facility] Glucose [Mass/Vol] 157 mg/dL 74-106 [facility] Comment on above: Fasting Glucose resu lt greater than or equal to 126 mg/dL suggests DIABETES MELLITUS per A.D.A. criteria. Potassium [Moles/Vol] 3.7 mmol/L 3.5-5.1 [facility] Sodium [Moles/Vol] 135 mmol/L 136-145 [facility] Glucose Glucometer (BldC) [M ass/Vol]Ordered By: Zayra Hinojosa on 03-13-2023 Glucose [Mass/Vol] 156 mg/dL 74-106 [facility] Comment on above: MANAGEMENT OF PATIEN T CARE PER NURSING PROTOCOL Laboratory - Chemistry and C hemistry - challengeOrdered By: Zayra Hinojosa on 03-13-2023 CO2 [Moles/Vol] 26.0 mmol/L 21.0-32.0 [facility] Urea nitrogen/Creatinine [Mass ratio] 10.3 mg/mg 10-20 [facility] No Panel InformationOrdered By: Zayra Hinojosa on 03-13-2023 Estimated Creatinine Clearance Calc 83.24 ml/min [facility] Estimated GFR (MDRD) Amer 100 mL/min >60 [facility] Comment on above: GFR Calc Estimated GFR (MDRD) Non-Af Amer 83 mL/min >60 [facility] Comment on above: Non- GFR Calc Serum or plasma calcium elaina urement (mass/volume)Ordered By: Zayra Hinojosa on 03-13-2023 Calcium [Mass/Vol] 9.3 mg/dL 8.5-10.1 [facility] Serum or plasma creatinine m easurement (mass/volume)Ordered By: Zayra Hinojosa on 03-13-2023 Creatinine [Mass/Vol] 0.98 mg/dL 0.70-1.30 [facility] Comment on above: The validity of the calculated GFR & GFRAA in patients over 70 years has not been determined. Clinical correlation is essential. Serum or plasma urea nitroge n measurement (mass/volume)Ordered By: Zayra Hinojosa on 03-13-2023 Urea nitrogen [Mass/Vol] 10 mg/dL 7-18 [facility] Thin prep Papanicolaou smear with manual screeningOrdered By: Zayra Hinojosa on 03-13-2023 Thin prep Papanicolaou smear with manual screening 7 5-15 [facility] Absolute lymphocyte countOrd ered By: David Renner on 2023 Lymphocytes Auto (Unsp spec) [#/Vol] 2.61 10*3/uL 0.83-4.51 [facility] Basophil percentageOrdered B y: David Renner on 2023 Basophils/100 WBC (Bld) 0.7 % 0-1 [facility] Bilirubin [Mass/Vol] 0.90 mg/dL 0.20-1.00 [facility] Comment on above: For patients on eltr ombopag therapy, use of Dimension [place] TBIL is not recommended. Eosinophils/100 WBC (Bld) 0.7 % 0-5 [facility] Neutrophils (Bld) [#/Vol] 3.5 10*3/uL 2.0-7.7 [facility] Neutrophils/100 WBC (Bld) 50.7 % 47-70 [facility] Protein [Mass/Vol] 6.0 g/dL 6.4-8.2 [facility] WBC (Bld) [#/Vol] 7.0 10*3/uL 4.4-11.0 [facility] Blood erythrocytes count (nu mber/volume)Ordered By: David Renner on 2023 RBC (Bld) [#/Vol] 4.44 10*6/uL 4.6-6.[address] [facility] Blood hemoglobin measurement (mass/volume)Ordered By: David Renner on 2023 Hemoglobin (Bld) [Mass/Vol] 13.7 g/dL 13.0-16.5 [facility] Blood lymphocytes/100 leukoc ytesOrdered By: David Renner on 2023 Lymphocytes/100 WBC (Bld) 37.6 % 19-41 [facility] Blood monocytes/100 leukocyt esOrdered By: David Renner on 2023 Monocytes/100 WBC (Bld) 9.9 % 0-10 [facility] Blood platelet mean volumeOr dered By: David Renner on 2023 Platelet mean volume (Bld) [Entitic vol] 10.4 fL 6.2-12.0 [facility] Determination of erythrocyte mean corpuscular volume (MCV)Ordered By: David Renner on 2023 MCV (RBC) [Entitic vol] 89.9 fL 80-94 [facility] Hematocrit Auto (Bld) [Volum e fraction]Ordered By: David Renner on 2023 Hematocrit (Bld) [Volume fraction] 39.9 % 40-54 [facility] Laboratory - Chemistry and C hemistry - challengeOrdered By: David Renner on 2023 ALP [Catalytic activity/Vol] 36 U/L 45-117 [facility] ALT [Catalytic activity/Vol] 20 U/L 16-61 [facility] Globulin (S) [Mass/Vol] 2.8 g/dL 2.2-4.2 [facility] Laboratory - Hematology and Cell countsOrdered By: David Renner on 2023 Erythrocyte distribution width (RBC) [Entitic vol] 38.4 fL 35.1-43.9 [facility] Erythrocyte distribution width (RBC) [Ratio] 11.8 % 11.6-14.6 [facility] Immature granulocytes/100 WBC (Bld) 0.400 % 0.0-0.9 [facility] Comment on above: IG% - Immature Granu locytes (promyelocytes, myelocytes and metamyelocytes) > 1% indicates that a LEFT SHIFT is Present. MCH (RBC) [Entitic mass] 30.9 pg 27.0-32.0 [facility] Nucleated RBC/100 WBC (Bld) [Ratio] 0 % 0-5 [facility] MCHC Auto (RBC) [Mass/Vol]Or dered By: David Renner on 2023 MCHC (RBC) [Mass/Vol] 34.3 g/dL 32-36 [facility] Platelets bldOrdered By: Krystal Renner on 2023 Platelets (Bld) [#/Vol] 176 10*3/uL 150-450 [facility] Serum or plasma albumin elaina urement (mass/volume)Ordered By: David Renner on 2023 Albumin [Mass/Vol] 3.2 g/dL 3.2-5.0 [facility] Serum or plasma albumin/glob ulin mass ratioOrdered By: David Renner on 2023 Albumin/Globulin [Mass ratio] 1.1 {ratio} 0.9-2.4 [facility] Thin prep Papanicolaou smear with manual screeningOrdered By: David Renner on 2023 Thin prep Papanicolaou smear with manual screening 13 U/L 15-37 [facility] Absolute lymphocyte countOrd ered By: Wily Maldonado on 03-11-2023 Lymphocytes Auto (Unsp spec) [#/Vol] 1.89 10*3/uL 0.83-4.51 [facility] Amorphous sediment detection in urine sediment by light microscopyOrdered By: Wily Maldonado on 03-11-2023 Amorphous sediment LM Ql (Urine sed) 1+ URATE [facility] Basophil percentageOrdered B y: Wily Maldonado on 03-11-2023 Basophil percentage 0 SEEN /hpf 0-5 [facility] Lactate [Moles/Vol] 1.1 mmol/L 0.4-2.[address] [facility] Basophils/100 WBC (Bld) 0.4 % 0-1 [facility] Bilirubin [Mass/Vol] 0.90 mg/dL 0.20-1.00 [facility] Comment on above: For patients on eltr ombopag therapy, use of Dimension [place] TBIL is not recommended. Chloride [Moles/Vol] 99 mmol/L 98-107 [facility] Eosinophils/100 WBC (Bld) 0.2 % 0-5 [facility] Glucose [Mass/Vol] 70 mg/dL 74-106 [facility] Neutrophils (Bld) [#/Vol] 6.7 10*3/uL 2.0-7.7 [facility] Neutrophils/100 WBC (Bld) 71.0 % 47-70 [facility] Potassium [Moles/Vol] 3.5 mmol/L 3.5-5.1 [facility] Protein [Mass/Vol] 7.9 g/dL 6.4-8.2 [facility] Sodium [Moles/Vol] 136 mmol/L 136-145 [facility] WBC (Bld) [#/Vol] 9.4 10*3/uL 4.4-11.0 [facility] Bilirubin Test strip Ql (U)O rdered By: Wily Maldonado on 03-11-2023 Bilirubin Ql (U) 1 mg/dL Negative [facility] Comment on above: COLOR OF URINE MAY A FFECT DIPSTICK RESULTS. Blood erythrocytes count (nu mber/volume)Ordered By: Wily Maldonado on 03-11-2023 RBC (Bld) [#/Vol] 5.18 10*6/uL 4.6-6.[address] [facility] Blood hemoglobin measurement (mass/volume)Ordered By: Wily Maldonado on 03-11-2023 Hemoglobin (Bld) [Mass/Vol] 16.5 g/dL 13.0-16.5 [facility] Blood lymphocytes/100 leukoc ytesOrdered By: Wily Maldonado on 03-11-2023 Lymphocytes/100 WBC (Bld) 20.1 % 19-41 [facility] Blood monocytes/100 leukocyt esOrdered By: Wily Maldonado on 03-11-2023 Monocytes/100 WBC (Bld) 7.9 % 0-10 [facility] Blood platelet mean volumeOr dered By: Wily Maldonado on 03-11-2023 Platelet mean volume (Bld) [Entitic vol] 10.2 fL 6.2-12.0 [facility] Clostridium difficile detect ion by polymerase chain reactionOrdered By: David Renner on 03-11-2023 C. difficile DNA JERILYN+probe Ql (Unsp spec) [facility] Determination of erythrocyte mean corpuscular volume (MCV)Ordered By: Wily Maldonado on 03-11-2023 MCV (RBC) [Entitic vol] 89.6 fL 80-94 [facility] Hematocrit Auto (Bld) [Volum e fraction]Ordered By: Wily Maldonado on 03-11-2023 Hematocrit (Bld) [Volume fraction] 46.4 % 40-54 [facility] Influenza virus A and B and SARS-CoV-2 (COVID-19) Ag panel - Upper respiratory specimOrdered By: Wily Maldonado on 03-11-2023 SARS-CoV-2 (COVID-19) RNA JERILYN+probe Ql (Resp) [facility] SARS-CoV-2 (COVID-19) RNA JERILYN+probe Ql (Resp) [facility] Ketones Test strip Ql (U)Ord ered By: Wily Maldonado on 03-11-2023 Ketones Ql (U) 50 mg/dl Negative [facility] Laboratory - Chemistry and C hemistry - challengeOrdered By: Wily Maldonado on 03-11-2023 ALP [Catalytic activity/Vol] 50 U/L 45-117 [facility] ALT [Catalytic activity/Vol] 28 U/L 16-61 [facility] CO2 [Moles/Vol] 28.0 mmol/L 21.0-32.0 [facility] Globulin (S) [Mass/Vol] 3.6 g/dL 2.2-4.2 [facility] Lipase [Catalytic activity/Vol] 116 U/L 13-75 [facility] Comment on above: Please note:LIPASE r evised reference range effective 22. New Lipase methodology. Expected to produce lower values than the previous assay method. NEW Reference Range: 13 - 75 U/L Urea nitrogen/Creatinine [Mass ratio] 12.1 mg/mg 10-20 [facility] Laboratory - Hematology and Cell countsOrdered By: Wily Maldonado on 03-11-2023 Erythrocyte distribution width (RBC) [Entitic vol] 38.8 fL 35.1-43.9 [facility] Erythrocyte distribution width (RBC) [Ratio] 11.9 % 11.6-14.6 [facility] Immature granulocytes/100 WBC (Bld) 0.400 % 0.0-0.9 [facility] Comment on above: IG% - Immature Granu locytes (promyelocytes, myelocytes and metamyelocytes) > 1% indicates that a LEFT SHIFT is Present. MCH (RBC) [Entitic mass] 31.9 pg 27.0-32.0 [facility] Nucleated RBC/100 WBC (Bld) [Ratio] 0 % 0-5 [facility] MCHC Auto (RBC) [Mass/Vol]Or dered By: Wily Maldonado on 03-11-2023 MCHC (RBC) [Mass/Vol] 35.6 g/dL 32-36 [facility] Mucus LM Ql (Urine sed)Order ed By: Wily Maldonado on 03-11-2023 Mucus Ql (Urine sed) 0 SEEN /hpf [facility] Nitrite Test strip Ql (U)Ord ered By: Wily Maldonado on 03-11-2023 Nitrite Ql (U) Negative Negative [facility] No Panel InformationOrdered By: Wily Maldonado on 03-11-2023 D-Dimer Quantitative (PE/DVT) 0.87 FEU/ug/m 0.27-0.49 [facility] Comment on above: D-Dimer ELEVATED (>0 .49): Additional studies and clinicalassessments are indicated to conclude diagnosis of:Deep Vein Thrombosis (DVT) or Pulmonary Embolism (PE)CRITICAL VALUE VERIFIED. CALLED TO MARIE BREEN03/11/23 1820 Keri Proctor.RESULTS READ BACK BY SAME. Estimated Creatinine Clearance Calc 32.15 ml/min [facility] Estimated GFR (MDRD) Amer 33 mL/min >60 [facility] Comment on above: GFR Calc Estimated GFR (MDRD) Non-Af Amer 27 mL/min >60 [facility] Comment on above: Non- GFR Calc Platelets bldOrdered By: Brittnee Maldonado on 03-11-2023 Platelets (Bld) [#/Vol] 228 10*3/uL 150-450 [facility] Protein Test strip Ql (U)Ord ered By: Wily Maldonado on 03-11-2023 Protein Ql (U) 100 mg/dl Negative [facility] Serum or plasma albumin elaina urement (mass/volume)Ordered By: Wily Maldonado on 03-11-2023 Albumin [Mass/Vol] 4.3 g/dL 3.2-5.0 [facility] Serum or plasma albumin/glob ulin mass ratioOrdered By: Wily Maldonado on 03-11-2023 Albumin/Globulin [Mass ratio] 1.2 {ratio} 0.9-2.4 [facility] Serum or plasma calcium elaina urement (mass/volume)Ordered By: Wily Maldonado on 03-11-2023 Calcium [Mass/Vol] 9.8 mg/dL 8.5-10.1 [facility] Serum or plasma creatinine m easurement (mass/volume)Ordered By: Wily Maldonado on 03-11-2023 Creatinine [Mass/Vol] 2.57 mg/dL 0.70-1.30 [facility] Comment on above: The validity of the calculated GFR & GFRAA in patients over 70 years has not been determined. Clinical correlation is essential. Serum or plasma urea nitroge n measurement (mass/volume)Ordered By: Wily Maldonado on 03-11-2023 Urea nitrogen [Mass/Vol] 31 mg/dL 7-18 [facility] Squamous epithelial cells de tection in urine sediment by light microscopyOrdered By: Wily Maldonado on 03-11-2023 Epithelial cells.squamous LM Ql (Urine sed) 0-5 SEEN /hpf 0-5 [facility] Thin prep Papanicolaou smear with manual screeningOrdered By: Wily Maldonado on 03-11-2023 Thin prep Papanicolaou smear with manual screening 18 U/L 15-37 [facility] Thin prep Papanicolaou smear with manual screening 9 5-15 [facility] Upper respiratory specimen i nfluenza A virus, influenza B virus, and severe acute respiratory syndromOrdered By: Wily Maldonado on 03-11-2023 Upper respiratory specimen influenza A virus, influenza B virus, and severe acute respiratory syndrom [facility] Urine blood detectionOrdered By: Wily Maldonado on 03-11-2023 RBC Ql (U) 10 /ul Negative [facility] RBC Ql (U) 0-5 SEEN /hpf 0-5 [facility] Urine clarityOrdered By: Brittnee Maldonado on 03-11-2023 Clarity (U) Sl. Cloudy Clear [facility] Urine color determinationOrd ered By: Wily Maldonado on 03-11-2023 Color (U) Yellow Yellow [facility] Urine glucose detectionOrder ed By: Wily Maldonado on 03-11-2023 Glucose Ql (U) Normal mg/dl Normal [facility] Urine leukocyte esterase det ection by dipstickOrdered By: Wily Maldonado on 03-11-2023 Leukocyte esterase Test strip Ql (U) Negative Negative [facility] Urine pHOrdered By: Wily andrade on 03-11-2023 pH (U) 5.0 [pH] 5.0 - 8.0 [facility] [facility] Urine sediment bacteria coun t by microscopy (number/high power field)Ordered By: Wily Maldonado on 03-11-2023 Bacteria LM.HPF (Urine sed) [#/Area] 0 /[HPF] None Seen [facility] Urine specific gravity measu rementOrdered By: Wily Maldonado on 03-11-2023 Specific gravity (U) [Rel density] 1.025 1.002-1.030 [facility] Urobilinogen Auto test strip Ql (U)Ordered By: Wily Maldonado on 03-11-2023 Urobilinogen Ql (U) Normal mg/dl Normal [facility] Absolute lymphocyte countOrd ered By: ED PROVIDER on 03-07-2023 Lymphocytes Auto (Unsp spec) [#/Vol] 1.95 10*3/uL 0.83-4.51 [facility] Basophil percentageOrdered B y: ED PROVIDER on 03-07-2023 Basophils/100 WBC (Bld) 0.6 % 0-1 [facility] Eosinophils/100 WBC (Bld) 0.4 % 0-5 [facility] Neutrophils (Bld) [#/Vol] 5.5 10*3/uL 2.0-7.7 [facility] Neutrophils/100 WBC (Bld) 67.6 % 47-70 [facility] WBC (Bld) [#/Vol] 8.1 10*3/uL 4.4-11.0 [facility] Basophil percentageOrdered B y: Lam Yo on 03-07-2023 Bilirubin [Mass/Vol] 0.90 mg/dL 0.20-1.00 [facility] Comment on above: For patients on eltr ombopag therapy, use of Dimension [place] TBIL is not recommended. Chloride [Moles/Vol] 105 mmol/L 98-107 [facility] Glucose [Mass/Vol] 125 mg/dL 74-106 [facility] Comment on above: Fasting Glucose resu lt from 100 to 125 mg/dL suggests IMPAIRED HOMEOSTASIS per A.D.A. criteria. Potassium [Moles/Vol] 3.9 mmol/L 3.5-5.1 [facility] Protein [Mass/Vol] 8.0 g/dL 6.4-8.2 [facility] Sodium [Moles/Vol] 137 mmol/L 136-145 [facility] Blood erythrocytes count (nu mber/volume)Ordered By: ED PROVIDER on 03-07-2023 RBC (Bld) [#/Vol] 5.15 10*6/uL 4.6-6.[address] [facility] Blood hemoglobin measurement (mass/volume)Ordered By: ED PROVIDER on 03-07-2023 Hemoglobin (Bld) [Mass/Vol] 16.0 g/dL 13.0-16.5 [facility] Blood lymphocytes/100 leukoc ytesOrdered By: ED PROVIDER on 03-07-2023 Lymphocytes/100 WBC (Bld) 24.1 % 19-41 [facility] Blood monocytes/100 leukocyt esOrdered By: ED PROVIDER on 03-07-2023 Monocytes/100 WBC (Bld) 6.8 % 0-10 [facility] Blood platelet mean volumeOr dered By: ED PROVIDER on 03-07-2023 Platelet mean volume (Bld) [Entitic vol] 10.1 fL 6.2-12.0 [facility] Determination of erythrocyte mean corpuscular volume (MCV)Ordered By: ED PROVIDER on 03-07-2023 MCV (RBC) [Entitic vol] 89.9 fL 80-94 [facility] Hematocrit Auto (Bld) [Volum e fraction]Ordered By: ED PROVIDER on 03-07-2023 Hematocrit (Bld) [Volume fraction] 46.3 % 40-54 [facility] Laboratory - Chemistry and C hemistry - challengeOrdered By: Lam Yo on 03-07-2023 ALP [Catalytic activity/Vol] 52 U/L 45-117 [facility] ALT [Catalytic activity/Vol] 26 U/L 16-61 [facility] CO2 [Moles/Vol] 26.0 mmol/L 21.0-32.0 [facility] Globulin (S) [Mass/Vol] 3.9 g/dL 2.2-4.2 [facility] Urea nitrogen/Creatinine [Mass ratio] 16.8 mg/mg 10-20 [facility] Laboratory - Hematology and Cell countsOrdered By: ED PROVIDER on 03-07-2023 Erythrocyte distribution width (RBC) [Entitic vol] 38.7 fL 35.1-43.9 [facility] Erythrocyte distribution width (RBC) [Ratio] 11.9 % 11.6-14.6 [facility] Immature granulocytes/100 WBC (Bld) 0.500 % 0.0-0.9 [facility] Comment on above: IG% - Immature Granu locytes (promyelocytes, myelocytes and metamyelocytes) > 1% indicates that a LEFT SHIFT is Present. MCH (RBC) [Entitic mass] 31.1 pg 27.0-32.0 [facility] Nucleated RBC/100 WBC (Bld) [Ratio] 0 % 0-5 [facility] MCHC Auto (RBC) [Mass/Vol]Or dered By: ED PROVIDER on 03-07-2023 MCHC (RBC) [Mass/Vol] 34.6 g/dL 32-36 [facility] No Panel InformationOrdered By: Lam Yo on 03-07-2023 Estimated Creatinine Clearance Calc 73.12 ml/min [facility] Estimated GFR (MDRD) Amer 85 mL/min >60 [facility] Comment on above: GFR Calc Estimated GFR (MDRD) Non-Af Amer 70 mL/min >60 [facility] Comment on above: Non- GFR Calc Platelets bldOrdered By: ED PROVIDER on 03-07-2023 Platelets (Bld) [#/Vol] 248 10*3/uL 150-450 [facility] Serum or plasma albumin elaina urement (mass/volume)Ordered By: Lam Yo on 03-07-2023 Albumin [Mass/Vol] 4.1 g/dL 3.2-5.0 [facility] Serum or plasma albumin/glob ulin mass ratioOrdered By: Lam Yo on 03-07-2023 Albumin/Globulin [Mass ratio] 1.1 {ratio} 0.9-2.4 [facility] Serum or plasma calcium elaina urement (mass/volume)Ordered By: Lam Yo on 03-07-2023 Calcium [Mass/Vol] 10.0 mg/dL 8.5-10.1 [facility] Serum or plasma creatinine m easurement (mass/volume)Ordered By: Lam Yo on 03-07-2023 Creatinine [Mass/Vol] 1.13 mg/dL 0.70-1.30 [facility] Comment on above: The validity of the calculated GFR & GFRAA in patients over 70 years has not been determined. Clinical correlation is essential. Serum or plasma urea nitroge n measurement (mass/volume)Ordered By: Lam Yo on 03-07-2023 Urea nitrogen [Mass/Vol] 19 mg/dL 7-18 [facility] Thin prep Papanicolaou smear with manual screeningOrdered By: Lam Yo on 03-07-2023 Thin prep Papanicolaou smear with manual screening 16 U/L 15-37 [facility] Thin prep Papanicolaou smear with manual screening 6 5-15 [facility] No Panel Informationon 03-01 POC SARS CoV-2 Antigen Positive [facility] Basophil percentageOrdered B y: Zayra Napier on 12-19-2022 Potassium [Moles/Vol] 3.6 mmol/L 3.5-5.1 [facility] Absolute lymphocyte countOrd ered By: Mariela Narvaez on 12-14-2022 Lymphocytes Auto (Unsp spec) [#/Vol] 1.75 10*3/uL 0.83-4.51 [facility] Basophil percentageOrdered B y: Mariela Narvaez on 12-14-2022 Basophils/100 WBC (Bld) 0.3 % 0-1 [facility] Bilirubin [Mass/Vol] 1.20 mg/dL 0.20-1.00 [facility] Comment on above: For patients on eltr ombopag therapy, use of Dimension [place] TBIL is not recommended. Chloride [Moles/Vol] 104 mmol/L 98-107 [facility] Eosinophils/100 WBC (Bld) 0.3 % 0-5 [facility] Glucose [Mass/Vol] 200 mg/dL 74-106 [facility] Comment on above: Glucose result great er than or equal to 200 mg/dLsuggests DIABETES MELLITUS per A.D.A. criteria. Neutrophils (Bld) [#/Vol] 4.6 10*3/uL 2.0-7.7 [facility] Neutrophils/100 WBC (Bld) 63.8 % 47-70 [facility] Potassium [Moles/Vol] 3.2 mmol/L 3.5-5.1 [facility] Protein [Mass/Vol] 6.1 g/dL 6.4-8.2 [facility] Sodium [Moles/Vol] 136 mmol/L 136-145 [facility] WBC (Bld) [#/Vol] 7.2 10*3/uL 4.4-11.0 [facility] Blood erythrocytes count (nu mber/volume)Ordered By: Mariela Narvaez on 12-14-2022 RBC (Bld) [#/Vol] 4.89 10*6/uL 4.6-6.[address] [facility] Blood hemoglobin measurement (mass/volume)Ordered By: Mariela Narvaez on 12-14-2022 Hemoglobin (Bld) [Mass/Vol] 15.5 g/dL 13.0-16.5 [facility] Blood lymphocytes/100 leukoc ytesOrdered By: Mariela Narvaez on 12-14-2022 Lymphocytes/100 WBC (Bld) 24.2 % 19-41 [facility] Blood monocytes/100 leukocyt esOrdered By: Mariela Narvaez on 12-14-2022 Monocytes/100 WBC (Bld) 10.8 % 0-10 [facility] Blood platelet mean volumeOr dered By: Mariela Narvaez on 12-14-2022 Platelet mean volume (Bld) [Entitic vol] 10.8 fL 6.2-12.0 [facility] Determination of erythrocyte mean corpuscular volume (MCV)Ordered By: Mariela Narvaez on 12-14-2022 MCV (RBC) [Entitic vol] 87.1 fL 80-94 [facility] Glucose Glucometer (BldC) [M ass/Vol]Ordered By: Mariela Narvaez on 07-07-2023 Glucose [Mass/Vol] 225 mg/dL 74-106 [facility] Comment on above: MANAGEMENT OF PATIEN T CARE PER NURSING PROTOCOL Hematocrit Auto (Bld) [Volum e fraction]Ordered By: Mariela Narvaez on 12-14-2022 Hematocrit (Bld) [Volume fraction] 42.6 % 40-54 [facility] Laboratory - Chemistry and C hemistry - challengeOrdered By: Mariela Narvaez on 12-14-2022 ALP [Catalytic activity/Vol] 38 U/L 45-117 [facility] ALT [Catalytic activity/Vol] 20 U/L 16-61 [facility] CO2 [Moles/Vol] 23.0 mmol/L 21.0-32.0 [facility] Globulin (S) [Mass/Vol] 2.9 g/dL 2.2-4.2 [facility] Urea nitrogen/Creatinine [Mass ratio] 15.4 mg/mg 10-20 [facility] Laboratory - Hematology and Cell countsOrdered By: Mariela Narvaez on 12-14-2022 Erythrocyte distribution width (RBC) [Entitic vol] 36.7 fL 35.1-43.9 [facility] Erythrocyte distribution width (RBC) [Ratio] 11.5 % 11.6-14.6 [facility] Immature granulocytes/100 WBC (Bld) 0.600 % 0.0-0.9 [facility] Comment on above: IG% - Immature Granu locytes (promyelocytes, myelocytes and metamyelocytes) > 1% indicates that a LEFT SHIFT is Present. MCH (RBC) [Entitic mass] 31.7 pg 27.0-32.0 [facility] Nucleated RBC/100 WBC (Bld) [Ratio] 0 % 0-5 [facility] MCHC Auto (RBC) [Mass/Vol]Or dered By: Mariela Narvaez on 12-14-2022 MCHC (RBC) [Mass/Vol] 36.4 g/dL 32-36 [facility] No Panel InformationOrdered By: Mariela Narvaez on 12-14-2022 Estimated Creatinine Clearance Calc 90.79 ml/min [facility] Estimated GFR (MDRD) Amer 109 mL/min >60 [facility] Comment on above: GFR Calc Estimated GFR (MDRD) Non-Af Amer 90 mL/min >60 [facility] Comment on above: Non- GFR Calc Platelets bldOrdered By: Aimee Narvaez on 12-14-2022 Platelets (Bld) [#/Vol] 177 10*3/uL 150-450 [facility] Serum or plasma albumin elaina urement (mass/volume)Ordered By: Mariela Narvaez on 12-14-2022 Albumin [Mass/Vol] 3.2 g/dL 3.2-5.0 [facility] Serum or plasma albumin/glob ulin mass ratioOrdered By: Mariela Narvaez on 12-14-2022 Albumin/Globulin [Mass ratio] 1.1 {ratio} 0.9-2.4 [facility] Serum or plasma calcium elaina urement (mass/volume)Ordered By: Mariela Narvaez on 12-14-2022 Calcium [Mass/Vol] 8.7 mg/dL 8.5-10.1 [facility] Serum or plasma creatinine m easurement (mass/volume)Ordered By: Mariela Narvaez on 12-14-2022 Creatinine [Mass/Vol] 0.91 mg/dL 0.70-1.30 [facility] Comment on above: The validity of the calculated GFR & GFRAA in patients over 70 years has not been determined. Clinical correlation is essential. Serum or plasma urea nitroge n measurement (mass/volume)Ordered By: Mariela Narvaez on 12-14-2022 Urea nitrogen [Mass/Vol] 14 mg/dL 7-18 [facility] Thin prep Papanicolaou smear with manual screeningOrdered By: Mariela Narvaez on 12-14-2022 Thin prep Papanicolaou smear with manual screening 17 U/L 15-37 [facility] Thin prep Papanicolaou smear with manual screening 9 5-15 [facility] Whole blood hemoglobin A1c/t otal hemoglobin ratio (mass fraction)Ordered By: Marvel Velez on 12-13-2022 HbA1c (Bld) [Mass fraction] 10.7 % 3.8-5.6 [facility] Comment on above: Normal < 5.7 % Predi abetic 5.7 - 6.4 % Diabetic >or= 6.5 % Please note range changes. Basophil percentageOrdered B y: Mariela Narvaez on 12-11-2022 Basophil percentage 0-5 SEEN /hpf 0-5 [facility] Bilirubin Test strip Ql (U)O rdered By: Mariela Narvaez on 12-11-2022 Bilirubin Ql (U) Negative Negative [facility] Erythrocyte sedimentation ra teOrdered By: Mariela Narvaez on 12-11-2022 ESR (Bld) [Velocity] 12 mm/h 0-20 [facility] Ketones Test strip Ql (U)Ord ered By: Mariela Narvaez on 12-11-2022 Ketones Ql (U) 50 mg/dl Negative [facility] Laboratory - Chemistry and C hemistry - challengeOrdered By: Mariela Narvaez on 12-11-2022 Sodium (U) [Moles/Vol] 135 mmol/L Not Establ. [facility] Mucus LM Ql (Urine sed)Order ed By: Mariela Narvaez on 12-11-2022 Mucus Ql (Urine sed) 0 SEEN /hpf [facility] Nitrite Test strip Ql (U)Ord ered By: Mariela Narvaez on 12-11-2022 Nitrite Ql (U) Negative Negative [facility] No Panel InformationOrdered By: Mariela Narvaez on 12-11-2022 Urine Potassium 30.0 mmol/L Not Establ. [facility] Urine Urea Nitrogen 470 mg/dL NO RANGE EST. [facility] Protein Test strip Ql (U)Ord ered By: Mariela Narvaez on 12-11-2022 Protein Ql (U) 100 mg/dl Negative [facility] Serum or plasma C reactive p rotein measurement (mass/volume)Ordered By: Mariela Narvaez on 12-11-2022 CRP [Mass/Vol] mg/L 0.0-3.0 [facility] Comment on above: C-Reactive Protein ( CRP) provides useful information for thediagnosis, therapy and monitoring of inflammatory processesand associated diseases. For the evaluation of Relative Riskfor Cardiovascular Disease, a High Sensitivity CRP (HSCRP)should be ordered. Squamous epithelial cells de tection in urine sediment by light microscopyOrdered By: Mariela Narvaez on 12-11-2022 Epithelial cells.squamous LM Ql (Urine sed) 0 SEEN /hpf 0-5 [facility] Thin prep Papanicolaou smear with manual screeningOrdered By: Mariela Narvaez on 12-11-2022 Thin prep Papanicolaou smear with manual screening 150 mmol/L Not Establ. [facility] Urine blood detectionOrdered By: Mariela Narvaez on 12-11-2022 RBC Ql (U) 25 /ul Negative [facility] RBC Ql (U) 0-5 SEEN /hpf 0-5 [facility] Urine clarityOrdered By: Aimee Narvaez on 12-11-2022 Clarity (U) Clear Clear [facility] Urine color determinationOrd ered By: Mariela Narvaez on 12-11-2022 Color (U) Yellow Yellow [facility] Urine creatinine measurement (mass/volume)Ordered By: Mariela Narvaez on 12-11-2022 Creatinine (U) [Mass/Vol] 58.00 mg/dL NO RANGE EST. [facility] Urine glucose detectionOrder ed By: Mariela Narvaez on 12-11-2022 Glucose Ql (U) 1000 mg/dl Normal [facility] Urine leukocyte esterase det ection by dipstickOrdered By: Mariela Narvaez on 12-11-2022 Leukocyte esterase Test strip Ql (U) Negative Negative [facility] Urine osmolality measurement Ordered By: Mariela Narvaez on 12-11-2022 Osmolality (U) [Osmolality] 593 mOsm/KG >50 [facility] Comment on above: Normal Urine Referen ce Ranges Random: 50 - 1200 mOsm/kg H20 depending on fluid intake Random: >850 mOsm/kg after 12 hour fluid restriction 24 hour: ~300 - 900 mOsm/kg H2O Urine pHOrdered By: Mariela alvarez on 12-11-2022 pH (U) 6.5 [pH] 5.0 - 8.0 [facility] Urine sediment bacteria coun t by microscopy (number/high power field)Ordered By: Mariela Narvaez on 12-11-2022 Bacteria LM.HPF (Urine sed) [#/Area] 0 /[HPF] None Seen [facility] Urine specific gravity measu rementOrdered By: Mariela Narvaez on 12-11-2022 Specific gravity (U) [Rel density] 1.015 1.002-1.030 [facility] Urobilinogen Auto test strip Ql (U)Ordered By: Mariela Narvaez on 12-11-2022 Urobilinogen Ql (U) Normal mg/dl Normal [facility] Ova and parasitesOrdered By: Kate Carrion on 12-09-2022 Ova and parasites identified LM Nom (Unsp spec) [facility] Stool enteric pathogen panel by probe and target amplification methodOrdered By: Kate Carrion on 12-09-2022 Gastrointestinal pathogens panel JERILYN+probe (Stl) [facility] Absolute lymphocyte countOrd ered By: David Barrett on 12-08-2022 Lymphocytes Auto (Unsp spec) [#/Vol] 1.38 10*3/uL 0.83-4.51 [facility] Basophil percentageOrdered B y: David Barrett on 12-08-2022 Lactate [Moles/Vol] 1.8 mmol/L 0.4-2.[address] [facility] Basophil percentage 0 SEEN /hpf 0-5 [facility] Basophils/100 WBC (Bld) 0.8 % 0-1 [facility] Bilirubin [Mass/Vol] 1.30 mg/dL 0.20-1.00 [facility] Comment on above: For patients on eltr ombopag therapy, use of Dimension [place] TBIL is not recommended. Chloride [Moles/Vol] 102 mmol/L 98-107 [facility] Eosinophils/100 WBC (Bld) 0.6 % 0-5 [facility] Glucose [Mass/Vol] 260 mg/dL 74-106 [facility] Comment on above: Glucose result great er than or equal to 200 mg/dLsuggests DIABETES MELLITUS per A.D.A. criteria. Neutrophils (Bld) [#/Vol] 4.5 10*3/uL 2.0-7.7 [facility] Neutrophils/100 WBC (Bld) 68.1 % 47-70 [facility] Potassium [Moles/Vol] 4.4 mmol/L 3.5-5.1 [facility] Protein [Mass/Vol] 7.9 g/dL 6.4-8.2 [facility] Sodium [Moles/Vol] 136 mmol/L 136-145 [facility] WBC (Bld) [#/Vol] 6.6 10*3/uL 4.4-11.0 [facility] Bilirubin Test strip Ql (U)O rdered By: David Barrett on 12-08-2022 Bilirubin Ql (U) Negative Negative [facility] Blood erythrocytes count (nu mber/volume)Ordered By: David Barrett on 12-08-2022 RBC (Bld) [#/Vol] 5.11 10*6/uL 4.6-6.[address] [facility] Blood hemoglobin measurement (mass/volume)Ordered By: David Barrett on 12-08-2022 Hemoglobin (Bld) [Mass/Vol] 16.0 g/dL 13.0-16.5 [facility] Blood lymphocytes/100 leukoc ytesOrdered By: David Barrett on 12-08-2022 Lymphocytes/100 WBC (Bld) 21.1 % 19-41 [facility] Blood monocytes/100 leukocyt esOrdered By: David Barrett on 12-08-2022 Monocytes/100 WBC (Bld) 8.9 % 0-10 [facility] Blood platelet mean volumeOr dered By: David Barrett on 12-08-2022 Platelet mean volume (Bld) [Entitic vol] 10.8 fL 6.2-12.0 [facility] Determination of erythrocyte mean corpuscular volume (MCV)Ordered By: David Barrett on 12-08-2022 MCV (RBC) [Entitic vol] 89.8 fL 80-94 [facility] Glucose Glucometer (BldC) [M ass/Vol]Ordered By: Rosanna Abraham on 12-08-2022 Glucose [Mass/Vol] 275 mg/dL 74-106 [facility] Comment on above: MANAGEMENT OF PATIEN T CARE PER NURSING PROTOCOL Hematocrit Auto (Bld) [Volum e fraction]Ordered By: David Barrett on 12-08-2022 Hematocrit (Bld) [Volume fraction] 45.9 % 40-54 [facility] Ketones Test strip Ql (U)Ord ered By: David Barrett on 12-08-2022 Ketones Ql (U) 50 mg/dl Negative [facility] Laboratory - Chemistry and C hemistry - challengeOrdered By: David Barrett on 12-08-2022 ALP [Catalytic activity/Vol] 54 U/L 45-117 [facility] ALT [Catalytic activity/Vol] 29 U/L 16-61 [facility] CO2 [Moles/Vol] 25.0 mmol/L 21.0-32.0 [facility] Globulin (S) [Mass/Vol] 3.6 g/dL 2.2-4.2 [facility] Lipase [Catalytic activity/Vol] 76 U/L 13-75 [facility] Comment on above: Please note:LIPASE r evised reference range effective 22. New Lipase methodology. Expected to produce lower values than the previous assay method. NEW Reference Range: 13 - 75 U/L Urea nitrogen/Creatinine [Mass ratio] 16.7 mg/mg 10-20 [facility] Laboratory - Hematology and Cell countsOrdered By: David Barrett on 12-08-2022 Erythrocyte distribution width (RBC) [Entitic vol] 37.2 fL 35.1-43.9 [facility] Erythrocyte distribution width (RBC) [Ratio] 11.3 % 11.6-14.6 [facility] Immature granulocytes/100 WBC (Bld) 0.500 % 0.0-0.9 [facility] Comment on above: IG% - Immature Granu locytes (promyelocytes, myelocytes and metamyelocytes) > 1% indicates that a LEFT SHIFT is Present. MCH (RBC) [Entitic mass] 31.3 pg 27.0-32.0 [facility] Nucleated RBC/100 WBC (Bld) [Ratio] 0 % 0-5 [facility] MCHC Auto (RBC) [Mass/Vol]Or dered By: David Barrett on 12-08-2022 MCHC (RBC) [Mass/Vol] 34.9 g/dL 32-36 [facility] Mucus LM Ql (Urine sed)Order ed By: David Barrett on 12-08-2022 Mucus Ql (Urine sed) 0 SEEN /hpf [facility] Nitrite Test strip Ql (U)Ord ered By: David Barrett on 12-08-2022 Nitrite Ql (U) Negative Negative [facility] No Panel InformationOrdered By: Kate Carrion on 12-08-2022 Troponin I High Sensitivity 28 pg/mL 3.0-78.0 [facility] Comment on above: Please Note: New Nyla t Units and Gender Specific Reference Ranges. For more information see Policy Stat Procedure [place] High Sensitivity Troponin (TNIH) and attachments. No Panel InformationOrdered By: David Barrett on 07-01-2023 Estimated Creatinine Clearance Calc 68.85 ml/min [facility] Estimated GFR (MDRD) Amer 79 mL/min >60 [facility] Comment on above: GFR Calc Estimated GFR (MDRD) Non-Af Amer 65 mL/min >60 [facility] Comment on above: Non- GFR Calc Platelets bldOrdered By: Krystal Barrett on 12-08-2022 Platelets (Bld) [#/Vol] 175 10*3/uL 150-450 [facility] Protein Test strip Ql (U)Ord ered By: David Barrett on 12-08-2022 Protein Ql (U) 30 mg/dl Negative [facility] Serum or plasma albumin elaina urement (mass/volume)Ordered By: David Barrett on 12-08-2022 Albumin [Mass/Vol] 4.3 g/dL 3.2-5.0 [facility] Serum or plasma albumin/glob ulin mass ratioOrdered By: David Barrett on 12-08-2022 Albumin/Globulin [Mass ratio] 1.2 {ratio} 0.9-2.4 [facility] Serum or plasma calcium elaina urement (mass/volume)Ordered By: David Barrett on 12-08-2022 Calcium [Mass/Vol] 10.0 mg/dL 8.5-10.1 [facility] Serum or plasma creatinine m easurement (mass/volume)Ordered By: David Barrett on 12-08-2022 Creatinine [Mass/Vol] 1.20 mg/dL 0.70-1.30 [facility] Comment on above: The validity of the calculated GFR & GFRAA in patients over 70 years has not been determined. Clinical correlation is essential. Serum or plasma urea nitroge n measurement (mass/volume)Ordered By: David Barrett on 12-08-2022 Urea nitrogen [Mass/Vol] 20 mg/dL 7-18 [facility] Serum procalcitonin measurem entOrdered By: Kate Carrion on 12-08-2022 Procalcitonin [Mass/Vol] ng/mL 0.00-0.09 [facility] Comment on above: A procalcitonin (PCT ) level above 2.0 ng/mL on the first day of ICU admission is associated with a high risk for progression to severe sepsis and/or septic shock. A PCT level below 0.5 ng/mL on the first day of ICU admission is associated with a low risk for progression to severe and/or septic shock. Note: Concentrations <0.5 ng/mL do not exclude an infection on account of localized infections (without systemic signs) which can be associated with such low concentrations, or a systemic infection in its initial stages (<6 hours). Furthermore, increased procalcitonin can occur without infection. PCT concentrations between 0.5 and 2.0 ng/mL should be interpreted taking into account the patient's history. It is recommended to retest PCT within 6-24 hours if any concentrations <2 ng/mL are obtained. Squamous epithelial cells de tection in urine sediment by light microscopyOrdered By: David Barrett on 12-08-2022 Epithelial cells.squamous LM Ql (Urine sed) 0 SEEN /hpf 0-5 [facility] Thin prep Papanicolaou smear with manual screeningOrdered By: David Barrett on 12-08-2022 Thin prep Papanicolaou smear with manual screening 20 U/L 15-37 [facility] Thin prep Papanicolaou smear with manual screening 9 5-15 [facility] Urine blood detectionOrdered By: David Barrett on 12-08-2022 RBC Ql (U) 10 /ul Negative [facility] RBC Ql (U) 0 SEEN /hpf 0-5 [facility] Urine clarityOrdered By: Krystal Barrett on 12-08-2022 Clarity (U) Sl. Cloudy Clear [facility] Urine color determinationOrd ered By: David Barrett on 12-08-2022 Color (U) Yellow Yellow [facility] Urine glucose detectionOrder ed By: David Barrett on 12-08-2022 Glucose Ql (U) 1000 mg/dl Normal [facility] Urine leukocyte esterase det ection by dipstickOrdered By: David Barrett on 12-08-2022 Leukocyte esterase Test strip Ql (U) Negative Negative [facility] Urine pHOrdered By: David tate on 12-08-2022 pH (U) 7.0 [pH] 5.0 - 8.0 [facility] Urine sediment bacteria coun t by microscopy (number/high power field)Ordered By: David Barrett on 12-08-2022 Bacteria LM.HPF (Urine sed) [#/Area] 0 /[HPF] None Seen [facility] Urine specific gravity measu rementOrdered By: David Barrett on 12-08-2022 Specific gravity (U) [Rel density] 1.010 1.002-1.030 [facility] Urobilinogen Auto test strip Ql (U)Ordered By: David Barrett on 12-08-2022 Urobilinogen Ql (U) Normal mg/dl Normal [facility] Vital Signs Date Time Vital Sign Value Performing Clinician Faci lity 08-13-2023 06:39-0500 Body temperature 97.2 [degF] [facility] 08-13-2023 06:39-0500 Diastolic blood pressure 99 mm[Hg] [facility] 08-13-2023 06:39-0500 Heart rate 88 /min [facility] 08-13-2023 06:39-0500 Respiratory rate 16 /min [facility] 08-13-2023 06:39-0500 SaO2% (BldA) [Mass fraction] 94 % [facility] 08-13-2023 06:39-0500 Systolic blood pressure 166 mm[Hg] [facility] 08-13-2023 04:05-0500 Body height 180.34 cm [facility] 08-13-2023 04:05-0500 Body mass index (BMI) [Ratio] 30.4 kg/m2 [facility] 08-13-2023 04:05-0500 Body weight 99.06 kg [facility] 05-21-2023 21:47-0500 Respiratory rate 14 /min Dr. Zayra Napier Work Phone: [facility] 05-21-2023 16:48-0500 Body height 180.[address] Zayra Napier Work Phone: [facility] 05-21-2023 16:48-0500 Body mass index (BMI) [Ratio] 39.4 kg/m2 Dr. Zayra Napier Work Phone: [facility] 05-21-2023 16:48-0500 Body temperature 98 [degF] Dr. Zayra Napier Work Phone: [facility] 05-21-2023 16:48-0500 Body weight 128.[address] Zayra Napier Work Phone: [facility] 05-21-2023 16:48-0500 Diastolic blood pressure 100 mm[Hg] Dr. Zayra Napier Work Phone: [facility] 05-21-2023 16:48-0500 Heart rate 50 /min Dr. Zayra Napier Work Phone: [facility] 05-21-2023 16:48-0500 SaO2% (BldA) [Mass fraction] 100 % Dr. Zayra Napier Work Phone: [facility] 05-21-2023 16:48-0500 Systolic blood pressure 148 mm[Hg] Dr. Zayra Napier Work Phone: [facility] 03-13-2023 10:00-0400 Body temperature 97.8 [degF] Dr. Zayra Napier Work Phone: [facility] 03-13-2023 10:00-0400 Diastolic blood pressure 74 mm[Hg] Dr. Zayra Napier Work Phone: [facility] 03-13-2023 10:00-0400 Heart rate 107 /min Dr. Zayra Napier Work Phone: [facility] 03-13-2023 10:00-0400 Respiratory rate 14 /min Dr. Zayra Napier Work Phone: [facility] 03-13-2023 10:00-0400 SaO2% (BldA) [Mass fraction] 98 % Dr. Zayra Napier Work Phone: [facility] 03-13-2023 10:00-0400 Systolic blood pressure 130 mm[Hg] Dr. Zayra Napier Work Phone: [facility] 2023 14:26-0400 Body height 180.[address] Zayra Napier Work Phone: [facility] 2023 14:26-0400 Body weight 123.[address] Zayra Napier Work Phone: [facility] 2023 00:27-0400 Body height 180.[address] Zayra Napier Work Phone: [facility] 2023 00:27-0400 Body mass index (BMI) [Ratio] 37.9 kg/m2 Dr. Zayra Napier Work Phone: [facility] 2023 00:27-0400 Body weight 123.[address] Zayra Napier Work Phone: [facility] 03-11-2023 22:16-0400 Body temperature 98.4 [degF] Dr. Zarya Napier Work Phone: [facility] 03-11-2023 22:16-0400 Diastolic blood pressure 72 mm[Hg] Dr. Zayra Napier Work Phone: [facility] 03-11-2023 22:16-0400 Heart rate 87 /min Dr. Zayra Napier Work Phone: [facility] 03-11-2023 22:16-0400 Respiratory rate 18 /min Dr. Zayra Napier Work Phone: [facility] 03-11-2023 22:16-0400 SaO2% (BldA) [Mass fraction] 91 % Dr. Zayra Napier Work Phone: [facility] 03-11-2023 22:16-0400 Systolic blood pressure 101 mm[Hg] Dr. Zayra Napier Work Phone: [facility] 03-07-2023 15:06-0400 Body mass index (BMI) [Ratio] 38.1 kg/m2 Dr. Zayra Napier Work Phone: [facility] 03-07-2023 15:06-0400 Body temperature 96 [degF] Dr. Zayra Napier Work Phone: [facility] 03-07-2023 15:06-0400 Body weight 124.[address] Zayra Napier Work Phone: [facility] 03-07-2023 15:06-0400 Diastolic blood pressure 112 mm[Hg] Dr. Zayra Napier Work Phone: [facility] 03-07-2023 15:06-0400 Heart rate 97 /min Dr. Zayra Napier Work Phone: [facility] 03-07-2023 15:06-0400 Respiratory rate 22 /min Dr. Zayra Napier Work Phone: [facility] 03-07-2023 15:06-0400 SaO2% (BldA) [Mass fraction] 97 % Dr. Zayra Napier Work Phone: [facility] 03-07-2023 15:06-0400 Systolic blood pressure 176 mm[Hg] Dr. Zayra Napier Work Phone: [facility] 03-01-2023 11:56-0400 Body mass index (BMI) [Ratio] 40.1 kg/m2 Dr. Zayra Napier Work Phone: [facility] 03-01-2023 11:56-0400 Body temperature 99.3 [degF] Dr. Zayra Napier Work Phone: [facility] 03-01-2023 11:56-0400 Body weight 130.[address] Zayra Napier Work Phone: [facility] 03-01-2023 11:56-0400 Diastolic blood pressure 78 mm[Hg] Dr. Zayra Napier Work Phone: [facility] 03-01-2023 11:56-0400 Heart rate 98 /min Dr. Zayra Napier Work Phone: [facility] 03-01-2023 11:56-0400 SaO2% (BldA) [Mass fraction] 98 % Dr. Zayra Napier Work Phone: [facility] 03-01-2023 11:56-0400 Systolic blood pressure 133 mm[Hg] Dr. Zayra Napier Work Phone: [facility] 12-14-2022 14:01-0400 Body temperature 98.2 [degF] Dr. Zayra Napier Work Phone: [facility] 12-14-2022 14:01-0400 Diastolic blood pressure 74 mm[Hg] Dr. Zayra Naiper Work Phone: [facility] 12-14-2022 14:01-0400 Heart rate 85 /min Dr. Zayra Napier Work Phone: [facility] 12-14-2022 14:01-0400 Respiratory rate 16 /min Dr. Zayra Napier Work Phone: [facility] 12-14-2022 14:01-0400 SaO2% (BldA) [Mass fraction] 97 % Dr. Zayra Napier Work Phone: [facility] 12-14-2022 14:01-0400 Systolic blood pressure 144 mm[Hg] Dr. Zayra Napier Work Phone: [facility] 12-14-2022 05:42-0400 Body mass index (BMI) [Ratio] 37.3 kg/m2 Dr. Zayra Napier Work Phone: [facility] 12-14-2022 05:42-0400 Body weight 121.[address] Zayra Napier Work Phone: [facility] 12-12-2022 13:06-0400 Body height 180.[address] Zayra Napier Work Phone: [facility] 12-08-2022 22:22-0400 Body temperature 97.6 [degF] [facility] 12-08-2022 22:22-0400 Diastolic blood pressure 88 mm[Hg] [facility] 12-08-2022 22:22-0400 Heart rate 98 /min [facility] 12-08-2022 22:22-0400 Inhaled oxygen flow rate 1 L/min [facility] 12-08-2022 22:22-0400 Respiratory rate 14 /min [facility] 12-08-2022 22:22-0400 SaO2% (BldA) [Mass fraction] 97 % [facility] 12-08-2022 22:22-0400 Systolic blood pressure 176 mm[Hg] [facility] 12-08-2022 16:45-0400 Body height 180.34 cm [facility] 12-08-2022 16:45-0400 Body mass index (BMI) [Ratio] 38.5 kg/m2 [facility] 12-08-2022 16:45-0400 Body weight 125.3 kg [facility] Encounters Encounter Date Encounter Type Care Provider Facility Start: 11-13-[address] ZAYRA PALENCIA DO Facility:[facility] Start: 11-05-[address] KOMAL JETER MD Facility:[facility] Start: 11-04-[address] ZAYRA PALENCIA DO Facility:[facility] Start: 07-03-2024 End: 07-03-2024 ambulatory [facility] Facility:[facility] Start: 06-09-2024 End: 06-09-2024 Emergency department patient visit Vandana Calhoun Facility:[facility] Start: 04-09-2024 End: 04-09-2024 ambulatory Zayra [facility] Facility:[facility] Start: 04-05-2024 End: 04-05-2024 Emergency department patient visit Ej Elliott Facility:[facility] Start: 10-23-2023 End: 10-23-2023 ambulatory [facility] Facility:[facility] Start: 10-11-2023 End: 10-11-2023 ambulatory [facility] Work Phone: Start: 10-11-2023 End: 10-11-2023 Patient encounter procedure [facility] Work Phone: Start: 10-11-2023 End: 10-11-2023 ambulatory Zayra Napier Facility:[facility] Start: 10-04-2023 End: 10-04-2023 ambulatory [facility] Work Phone: Start: 10-04-2023 End: 10-04-2023 Patient encounter procedure [facility] Start: 10-04-2023 End: 10-04-2023 ambulatory Zayra Black Facility:[facility] Start: 08-23-2023 End: 08-23-2023 ambulatory [facility] Work Phone: Start: 08-23-2023 End: 08-23-2023 Patient encounter procedure [facility] Work Phone: Start: 08-23-2023 End: 08-23-2023 ambulatory Zayra Napier Facility:[facility] Start: 08-13-2023 End: 08-13-2023 Emergency department patient visit [facility]Emergency Department Work Phone: Start: 06-28-2023 End: 06-28-[address] aZyra Napier Work Phone: [facility] Work Phone: Start: 06-28-2023 End: 06-28-[address] Zayra Napier Work Phone: [facility] Bettye Dimasjacy [facility] Start: 05-30-2023 End: 05-30-[address] Zayra Napier Work Phone: [facility] Work Phone: Start: 05-30-2023 End: 05-30-[address] Zayra Napier Work Phone: [facility]Sleep Lab Work Phone: Start: 05-21-2023 End: 05-21-2023 Emergency department patient visit Dr. Zayra Napier Work Phone: [facility]Emergency Department Work Phone: Start: 04-29-2023 End: 04-29-[address] Zayra Napier Work Phone: [facility] Work Phone: Start: 04-29-2023 End: 04-29-[address] Zayra Napier Work Phone: [facility] Work Phone: Start: 03-13-2023 Non-patient / Non-visit Dr. Stacey Napier Work Phone: [facility] Work Phone: Start: 2023 Non-patient / Non-visit Dr. Stacey Napier Work Phone: [facility] Work Phone: Start: 03-11-2023 End: 03-13-2023 Evaluation and management of inpatient Dr. Zayra Napier Work Phone: [facility]-Medical Surgical 3 Work Phone: Start: 03-11-2023 Non-patient / Non-visit Dr. Stacey Napier Work Phone: [facility] Work Phone: Start: 03-07-2023 End: 03-07-2023 Emergency department patient visit Dr. Zayra Napier Work Phone: [facility]Emergency Department Work Phone: Start: 03-01-2023 End: 03-01-[address] Zayra Napier Work Phone: [facility] Work Phone: Start: 12-19-2022 End: 12-19-[address] Zayra Napier Work Phone: [facility] Work Phone: Start: 12-19-2022 End: 12-19-[address] Zayra Napier Work Phone: [facility]Bettye Camacho [facility] Start: 12-14-2022 Non-patient / Non-visit Dr. Stacey Napier Work Phone: [facility] Work Phone: Start: 12-13-2022 Non-patient / Non-visit Dr. Stacey Napier Work Phone: [facility] Start: 12-13-2022 End: 12-13-2022 Non-patient / Non-visit Dr. Zayra Napier Work Phone: [facility] Work Phone: Start: 12-12-2022 Non-patient / Non-visit Dr. Stacey Napier Work Phone: [facility] Start: 12-12-2022 Non-patient / Non-visit Dr. Stacey Napier Work Phone: [facility] Work Phone: Start: 12-11-2022 Non-patient / Non-visit Dr. Stacey Napier Work Phone: [facility] Work Phone: Start: 12-10-2022 End: 12-14-2022 Evaluation and management of inpatient Dr. Zayra Napier Work Phone: [facility] 3 Work Phone: Start: 12-10-2022 Non-patient / Non-visit Dr. Stacey Napier Work Phone: [facility] Work Phone: Start: 12-09-2022 Non-patient / Non-visit Dr. Stacey Napier Work Phone: [facility] Work Phone: Start: 12-08-2022 Evaluation and management of inpatient [facility] Work Phone: Start: 12-08-2022 Non-patient / Non-visit Dr. Stacey Napier Work Phone: [facility] Work Phone: Start: 12-08-2022 observation encounter W [facility] Work Phone: Procedures Date Procedure Procedure Detail Performing Clinician Start: 10-11-2023 Computed tomography of abdomen and pelvis with contrast Start: 08-13-2023 SARS-CoV-2, Influenz a & RSV (PCR) Start: 05-21-2023 Computed tomography of abdomen and pelvis with intravenous contrast Dr. Zayra Napier Work Phone: Start: 03-11-2023 CT angiography of ch est with contrast Dr. Zayra Napier Work Phone: Start: 03-11-2023 Computed tomography of abdomen and pelvis with contrast Dr. Zayra Napier Work Phone: Start: 03-11-[address] diff[address] e detection Dr. Zayra Napier Work Phone: Start: 03-11-2023 SARS-CoV-2 & FLU Ant igen (Rapid) Dr. Zayra Napier Work Phone: Start: 03-11-[address] Zayra Napier Work Phone: Start: 12-13-[address] Zayra lee Work Phone: Start: 12-10-2022 Computed tomography of abdomen and pelvis with contrast Dr. Zayra Napier Work Phone: Start: 12-09-[address] Zayra Napier Work Phone: Start: 12-09-2022 Ova [place] parasites identification Dr. Zayra Napier Work Phone: Start: 12-08-2022 Computed tomography of abdomen and pelvis with intravenous contrast Plan of Treatment Date Care Activity Detail Author Start: 08-13-2023 [facility] Start: 05-21-2023 [facility] Start: 03-13-2023 Patient discharge [facility] Start: 2023 Application of inter mittent pneumatic compression device [facility] Start: 2023 Following clinical p athway protocol [facility] Start: 2023 Ambulation without limitation [facility] Start: 2023 Assessment of risk o f venous thromboembolism [facility] Start: 2023 Insertion of cathete r into peripheral vein [facility] Start: 2023 Oxygen therapy [facility] Start: 2023 Providing care accor ding to standard [facility] Start: 2023 End: 2023 [facility] Start: 2023 Patient referral to dietitian [facility] Start: 03-11-2023 Clostridioides diffi cile DNA [Presence] in Unspecified specimen by JERILYN with probe detection [facility] Start: 03-11-2023 Verification routine [facility] Start: 03-11-2023 Admission procedure [facility] Start: 03-11-2023 [facility] Start: 03-07-2023 [facility] Start: 12-17-2022 [facility] Start: 12-16-2022 [facility] Start: 12-15-2022 [facility] Start: 12-14-2022 Patient discharge [facility] Start: 12-12-2022 [facility] Start: 12-12-2022 Referral to gastroen terology service [facility] Start: 12-12-2022 [facility] Start: 12-11-2022 Urinary bladder resi dual urine study [facility] Start: 12-10-2022 Urinary bladder resi dual urine study [facility] Start: 12-09-2022 Admission procedure [facility] Start: 12-08-2022 Assessment of risk o f venous thromboembolism [facility] Start: 12-08-2022 Care regimes management [facility] Start: 12-08-2022 Inhalation therapy procedure [facility] Start: 12-08-2022 Insertion of cathete r into peripheral vein [facility] Start: 12-08-2022 Introduction of urinary catheter [facility] Start: 12-08-2022 Measuring intake and output [facility] Start: 12-08-2022 Providing care accor ding to standard [facility] Start: 12-08-2022 Provision of activity privileges [facility] Start: 12-08-2022 [facility] Start: 12-08-2022 Following clinical p athway protocol [facility] Start: 12-08-2022 Troponin I measurement [facility] Start: 12-08-2022 [facility] Start: 12-08-2022 Gastrointestinal pat hogens panel - Stool by JERILYN with probe detection [facility] Start: 12-08-2022 Admission procedure [facility] Start: 12-08-2022 Verification routine [facility] Start: 12-08-2022 Patient referral to dietitian [facility] Ova and parasites id entified in Unspecified specimen by Light microscopy [facility] Patient Education [facility] Work Phone: Patient referral [facility] Work Phone: Payers Date Payer Category Payer Private Health Insurance [id number] 2023 Self-pay [id number] 2006 Unknown ANTHEM [id number] 1960 Unknown [id number] 2.16. [id number] 1961 Unknown [id number] 2.16.8 [id number] Unknown [id number] 2.16.8 [id number] Unknown [id number] 2.16.8 [id number] Unknown [id number] 2.16.8 [id number] Unknown [id number] 2.16.8 [id number] Unknown [id number] 2.16.8 [id number] Unknown [id number] 2.16.8 [id number] Unknown [id number] 2.16.8 [id number] Unknown [id number] 2.16.8 [id number] Unknown [id number] 2.16.8 [id number] Social History Date Type Detail Facility Start: 12-08-2022 End: 08-13-2023 Tobacco smoking status [facility] [facility] Start: 09-28-2015 None [facility] Start: 09-28-2015 With Family [facility] Start: 1960 Sex Assigned At Male W [facility] Goals Date Patient Goal Desired Activity /State Functional Status Date Assessment Result Facility 03-13-2023 Functional status Up ad laney [facility] Work Phone: 12-14-2022 Functional status Ambulates;Up a d laney;Bathroom Privilege [facility] Work Phone: Mental Status Date Assessment Result Facility 03-13-2023 Cognitive function Appropriate;Cooperativ e [facility] Work Phone: 2023 Cognitive function Arousable To Voice/Nam e [facility] Work Phone: 03-11-2023 Cognitive function Level Of Cons ciousness Awake;Alert;Appropriate;Follow s Commands [facility] Work Phone: 12-14-2022 Cognitive function Voice/Name [facility] Work Phone: Clinical Notes 12-08-2022 to 2023 Note Date & Type Note Facility 2023 History and physi brannon note Note Date/Time March 11, 2023 10:26pm [facility] Medical Records Department [address] [place] [address] History & Physical Exam 03/11/236 MR#: [id number] Acct: [id number] Name: MORENO VILLEGAS Rep #:[id number] : 1960 62 From: David Renner MD PCP: Dr. Zayra Napier DO Status:ADM IN Location: [facility] [id number] HPI - General General Date of Admission: 03/11/23 Date of Service: 03/11/23 Chief Complaint: Generalized abdominal pain with diarrhea HPI Narrative MORENO VILLEGAS, is a 62 M who presents to the emergency room with chief complaintof generalized abdominal pain with diarrhea onset of symptoms began after the patient tested positive for COVID a week and a half ago. The patient has noticed increased abdominal pain and overall generalized discomfort and weakness. He did test negative earlier today for COVID and respiratory symptomshave subsided. CT scan reveals generalized colitis and CT angiogram of chest isnegative for pulmonary embolism. Initially he presented with hypertension that is now started to trend down, however, his renal function has digressed from hisnormal baseline to a creatinine of 2.5. He will be admitted for IV hydration and treatment of his colitis and anticipate his renal function will improve withIV hydration. [facility] Medical History Former tobacco use GERD (gastroesophageal reflux disease) Hypertension Obesity JUANA (obstructive sleep apnea) Type 2 diabetes mellitus Home Medications pantoprazole 40 mg tablet,delayed release (Protonix) 40 mg PO BID 30 days #60 tabs 12/14/22 [Rx Last Taken Unknown] ondansetron 4 mg disintegrating tablet 4 mg PO Q8H PRN PRN Nausea #14 tabs 03/07/23 [Rx Last Taken Unknown] promethazine 25 mg tablet 25 mg PO TID PRN nausea and vomiting #14 tabs 03/07/23[Rx Last Taken Unknown] sucralfate 1 gram tablet (Carafate) 1 g PO BID #30 tabs 03/07/23 [Rx Last Taken Unknown] insulin glargine-yfgn 100 unit/mL (3 mL) subcutaneous pen See Rx Instructions subcut DAILY 03/11/23 [History Last Taken Unknown] metformin 500 mg tablet 500 mg PO BID 03/11/23 [History Last Taken Unknown] Allergy/AdvReac Type Severity Reaction Status Date / Time No Known Allergies Allergy Verified 03/11/23 15:07 Family History Mother Diabetes Heart disease Cancer Father No problems noted. Surgical History History of cholecystectomy History of surgery on lower extremity Social History household members: other details: Notes his son lives with him. Smoking Status: Former smoker alcohol intake: never substance use type: does not use ROS Constitutional Constitutional: Reports weakness; Denies chills or fever(s) Eyes Eyes: Denies change in vision ENT HEENT: Denies abnormal hearing Cardiovascular Cardiovascular: Denies chest pain Respiratory/Chest Respiratory/Chest: Denies cough or shortness of breath at rest Gastrointestinal Gastrointestinal: Reports abdominal pain and diarrhea; Denies hematochezia or melena Genitourinary Genitourinary: Denies hematuria Musculoskeletal Musculoskeletal: Denies back pain Integumentary Integumentary: Denies jaundice Neurologic Neurologic: Denies abnormal gait Psychiatric Psychiatric: Denies anxiety Hematologic/Lymphatic Hematologic/Lymphatic: Denies anemia Vital Signs Vital Signs Vital Signs: 03/11/23 15:08 03/11/23 16:28 03/11/23 16:28 Temperature 97.0 F L Temperature Source Temporal Pulse Rate 56 L 101 H Respiratory Rate 18 12 Respiratory Effort Normal Non-Labored Respiratory Pattern Normal Blood Pressure 183/91 H 183/92 H Blood Pressure Mean 121 122 Pulse Ox 97 Oxygen Delivery Method Room Air 03/11/23 17:24 03/11/23 17:58 03/11/23 19:00 Temperature Temperature Source Pulse Rate 102 H 108 H 108 H Respiratory Rate 13 13 Respiratory Effort Respiratory Pattern Blood Pressure 193/95 H 189/104 H 210/119 H Blood Pressure Mean 127 132 149 Pulse Ox Oxygen Delivery Method 03/11/23 19:30 03/11/23 21:00 03/11/23 21:30 Temperature Temperature Source Pulse Rate 109 H 96 96 Respiratory Rate 19 H 27 H 19 H Respiratory Effort Respiratory Pattern Blood Pressure 210/112 H 166/91 H 147/96 H Blood Pressure Mean 138 113 110 Pulse Ox Oxygen Delivery Method Weight Weight: 271 lb Body Mass Index (BMI) 37.8 Physical Exam Const oriented x3 General Appearance: cooperative and well developed HEENT normocephalic and head/scalp atraumatic Eyes PERRL and EOMs intact bilaterally Neck no lymphadenopathy Lymph Lymphatic: no lymphadenopathy noted Resp normal respiratory effort, normal air movement and clear to auscultation bilaterally Cardio regular rate, regular rhythm, S1 normal heart sound, S2 normal heart sound and no murmurs GI GI Narrative: protuberant abdomen Palpation: tender LLQ and RLQ; Negative for guarding Extremity normal capillary refill Skin General Skin Exam: no breakdown Neuro no focal motor deficits and no sensory deficits noted Psych thought process normal, cooperative and affect normal Appearance: appropriate Results Lab / Micro Data 03/11/23 16:30 03/11/23 16:30 Labs: Laboratory Results - last 24 hr 03/11/23 16:30: WBC 9.4, RBC 5.18, Hgb 16.5, Hct 46.4, MCV 89.6, MCH 31.9, MCHC 35.6, RDW Std Deviation 38.8, RDW Coeff of Billy 11.9, Plt Count 228, MPV 10.2, Immature Gran % (Auto) 0.400, Neut % (Auto) 71.0 H, Lymph % (Auto) 20.1, [place] % (Auto) 7.9, Eos % (Auto) 0.2, Baso % (Auto) 0.4, Absolute Neuts (auto) 6.7, Absolute Lymphs (auto) 1.89, Nucleated RBC % 0, Sodium 136, Potassium 3.5, Chloride 99, Carbon Dioxide 28.0, Anion Gap 9, BUN 31 H, Creatinine 2.57 H, Estim Creat Clear Calc 32.15, Est GFR (MDRD) Af Amer 33 L, Est GFR (MDRD) Non-Af27 L, BUN/Creatinine Ratio 12.1, Glucose 70 L, Calcium 9.8, Total Bilirubin 0.90, AST 18, ALT 28, Alkaline Phosphatase 50, Total Protein 7.9, Albumin 4.3, Globulin 3.6, Albumin/Globulin Ratio 1.2, Lipase 116 H 03/11/23 17:20: D-Dimer Quant (PE/DVT) 0.87 H*, Lactic Acid 1.1 03/11/23 19:45: Urine Color Yellow, Urine Clarity Sl. Cloudy, Urine pH 5.0, Ur Specific [place] 1.025, Urine Protein 100 H, Urine Glucose (UA) Normal, Urine Ketones 50 H, Urine Occult Blood 10 H, Urine Nitrite Negative, Urine Bilirubin 1H, Urine Urobilinogen Normal, Ur Leukocyte Esterase Negative, Urine RBC 0-5 SEEN, Urine WBC 0 SEEN, Ur Squamous Epith Cells 0-5 SEEN, Amorphous Sediment 1+ URATE, Urine Bacteria 0 SEEN, Urine Mucus 0 SEEN Micro: Microbiology 03/11/23 16:30 Nasal Secretion SARS-CoV-2 & FLU Antigen (Rapid) - Final Radiology Impression Abdomen/Pelvis CT 03/11/23 17:05 IMPRESSION: Findings consistent with nonspecific colitis. No evidence for small bowel obstruction or acute appendicitis Other findings as above Electronically Signed: Miguelito Ramirez MD at 20:30 EDT Reading Location ID and State: [facility] / [place] Tel [phone], Service support , Chest CTA 03/11/23 18:38 IMPRESSION: ASHD. No acute cardiopulmonary pathology. No evidence for pulmonary embolus. Electronically Signed: Miguelito Ramirez MD at 20:22 EDT , Assessment & Plan Assessment/Plan (1) Colitis: (2) Acute kidney injury: (3) Diabetes mellitus: QUALIFIERS: Diabetes mellitus type: type 2 PLAN: Plan 1 colitis?continue ciprofloxacin and Flagyl initiated in the emergency room, check stool for C. difficile as this was not done in the emergency room to be sure that we are not treating C. difficile colitis. IV fluids normal saline at 125 cc/h?we will repeat BMP in the morning after he has had IV hydration overnight 2. Hypertension?seems to be trending down as I last saw him we will add as needed hydralazine if necessary 3. Acute kidney injury?we will get BMP done in the morning after he has had IV hydration overnight 4. Diabetes?continue routine home medications 5. DVT prophylaxis?SCDs due to acute kidney injury Charges/Coding Visit Charges Inpatient E&M: 85509 Init Hosp L2 03/11/232232 <Electronically signed by David Renner MD> Cosigner Signature (if applicable): CC: Dr. Zayra Napier, DO; Dr. David Renner MD~ Signed [facility] Work Phone: 1(709) 191-517810-02-2023 Discharge summary Author Wily Maldonado [facility] 2023 12:27am Note Date/Time March 11, 2023 5: 03pm [facility] Medical Records Department [address] [place] [id number] Emergency Department Summary 03/11/23 MR#: [id number] Acct: [id number] Name: MORENO VILLEGAS Rep #:[id number] : 1960 62 From: Wily Starkey PCP: Dr. Zayra Napier DO Status:ADM IN Location: [facility] [id number] HPI History of Present Illness Chief Complaint: General Illness Informant: patient Onset/Context/Timing Onset: Weeks (2) Context: Gradual Onset Timing: Continuous Quality: Sharp Location: Right side of abdomen and right low back. Worsened by: Nothing Relieved by: Stretching, massage, hot shower Narrative Narrative: Patient presents with not feeling good for the past 2 weeks. Patient states he was recently diagnosed with COVID-19 approximately a week and a half ago. Patient states that he still does not feel any better. Patient states that he has sharp pain over the right side of his abdomen and right lumbar area. Patient states it is better with stretching, massage, and hot shower. Patient states nothing makes it worse. Patient admits to decreased appetite. Patient states he is able to drink but has not been eating anything. Patient admits to a cough. Patient denies any fevers or chills. Admits to some nausea, vomiting,and diarrhea. [facility] Medical History Former tobacco use GERD (gastroesophageal reflux disease) Hypertension Obesity JUANA (obstructive sleep apnea) Type 2 diabetes mellitus Home Medications pantoprazole 40 mg tablet,delayed release (Protonix) 40 mg PO BID 30 days #60 tabs 12/14/22 [Rx Last Taken Unknown] ondansetron 4 mg disintegrating tablet 4 mg PO Q8H PRN PRN Nausea #14 tabs 03/07/23 [Rx Last Taken Unknown] promethazine 25 mg tablet 25 mg PO TID PRN nausea and vomiting #14 tabs 03/07/23[Rx Last Taken Unknown] sucralfate 1 gram tablet (Carafate) 1 g PO BID #30 tabs 03/07/23 [Rx Last Taken Unknown] insulin glargine-yfgn 100 unit/mL (3 mL) subcutaneous pen See Rx Instructions subcut DAILY 03/11/23 [History Last Taken Unknown] metformin 500 mg tablet 500 mg PO BID 03/11/23 [History Last Taken Unknown] Allergy/AdvReac Type Severity Reaction Status Date / Time No Known Allergies Allergy Verified 03/11/23 15:07 Family History Mother Diabetes Heart disease Cancer Father No problems noted. Surgical History History of cholecystectomy History of surgery on lower extremity Social History household members: other details: Notes his son lives with him. Smoking Status: Former smoker alcohol intake: never substance use type: does not use ROS ROS ED Constitutional Constitutional ED: Denies chills or fever(s) Eyes Eyes: Denies blurry vision or change in vision ENT ENT ED: Denies rhinorrhea or sore throat Cardiovascular Cardiovascular: Denies chest pain or palpitations Respiratory/Chest Respiratory/Chest: Reports cough; Denies dyspnea Gastrointestinal Gastrointestinal: Reports diarrhea, nausea and vomiting Genitourinary Genitourinary ED: Denies dysuria or hematuria Musculoskeletal Musculoskeletal: Reports back pain; Denies neck pain Integumentary Denies abscess or rash Neurologic Neurologic: Denies headache(s) or weakness Allergic/Immunologic Allergic/Immunologic ED: Denies mouth swelling or urticaria EXAM Physical Exam Const Vital Signs: 03/11/23 15:08 03/11/23 16:28 03/11/23 16:28 Temperature 97.0 F L Temperature Source Temporal Pulse Rate 56 L 101 H Respiratory Rate 18 12 Respiratory Effort Normal Non-Labored Respiratory Pattern Normal Blood Pressure 183/91 H 183/92 H Blood Pressure Mean 121 122 Pulse Ox 97 Oxygen Delivery Method Room Air 03/11/23 17:24 03/11/23 17:58 03/11/23 19:00 Temperature Temperature Source Pulse Rate 102 H 108 H 108 H Respiratory Rate 13 13 Respiratory Effort Respiratory Pattern Blood Pressure 193/95 H 189/104 H 210/119 H Blood Pressure Mean 127 132 149 Pulse Ox Oxygen Delivery Method 03/11/23 19:30 03/11/23 21:00 03/11/23 21:30 Temperature Temperature Source Pulse Rate 109 H 96 96 Respiratory Rate 19 H 27 H 19 H Respiratory Effort Respiratory Pattern Blood Pressure 210/112 H 166/91 H 147/96 H Blood Pressure Mean 138 113 110 Pulse Ox Oxygen Delivery Method Positive well nourished and well developed General Appearance ED: well developed and NAD HEENT Reports moist mucous membranes Neck supple and no JVD Resp normal respiratory effort and clear to auscultation bilaterally Cardio regular rate, regular rhythm and no murmurs GI normal to inspection, nondistended, normoactive bowel sounds Palpation: soft and tender RLQ and RUQ; Negative for guarding or rebound tenderness present Extremity normal to inspection General Extremety ED: Negative for edema or tenderness General Extremity: Negative for edema Neuro oriented x3, CN's II-XII intact bilaterally and no sensory deficits noted Sensorium / Orientation: alert Motor Exam: strength 5/5 throughout Psych mental status grossly normal Skin no rashes or lesions noted MDM MDM MDM Narrative Medical decision making narrative: Differential diagnosis includes COVID-19, pneumonia, cardiac dysrhythmia, cardiac ischemia, dehydration, electrolyte abnormality, pulmonary embolism, pyelonephritis, urinary tract infection, ureteral calculus, colitis, and gastroenteritis. Patient EKG will be obtained to assess for cardiac dysrhythmiaand cardiac ischemia. Chest x- ray will be obtained to assess for pneumonia. CBC will be obtained to assess for leukocytosis and anemia. Basic metabolic profile will be obtained to assess for electrolyte abnormality and renal function. D-dimer will be obtained to assess for pulmonary embolism. CT scan of the abdomen and pelvis will be obtained to assess for colitis, bowel obstruction, perforation, and free fluid. History & Record Review Additional record(s) reviewed:: Prior labs Lab Data Attestation: I reviewed the patient's lab results. Lab results narrative: CBC was reviewed and was within normal limits. Comprehensive metabolic profile was reviewed. BUN was 31 and creatinine was 2.57. These are increased from previous results. Serum lactate was reviewed and was normal. D-dimer was reviewed and was elevated at 0.87. Lipase was reviewed and was slightly elevated at 116. Urinalysis was reviewed. There is no evidence of urinary tract infection or hematuria. Labs: Laboratory Results - last 24 hr 03/11/23 03/11/23 03/11/23 16:30 17:20 19:45 WBC 9.4 RBC 5.18 Hgb 16.5 Hct 46.4 MCV 89.6 MCH 31.9 MCHC 35.6 RDW Std Deviation 38.8 RDW Coeff of Billy 11.9 Plt Count 228 MPV 10.2 Immature Gran % (Auto) 0.400 Neut % (Auto) 71.0 H Lymph % (Auto) 20.1 [place] % (Auto) 7.9 Eos % (Auto) 0.2 Baso % (Auto) 0.4 Absolute Neuts (auto) 6.7 Absolute Lymphs (auto) 1.89 Nucleated RBC % 0 D-Dimer Quant (PE/DVT) 0.87 H* Sodium 136 Potassium 3.5 Chloride 99 Carbon Dioxide 28.0 Anion Gap 9 BUN 31 H Creatinine 2.57 H Estim Creat Clear Calc 32.15 Est GFR (MDRD) Af Amer 33 L Est GFR (MDRD) Non-Af 27 L BUN/Creatinine Ratio 12.1 Glucose 70 L Lactic Acid 1.1 Calcium 9.8 Total Bilirubin 0.90 AST 18 ALT 28 Alkaline Phosphatase 50 Total Protein 7.9 Albumin 4.3 Globulin 3.6 Albumin/Globulin Ratio 1.2 Lipase 116 H Urine Color Yellow Urine Clarity Sl. Cloudy Urine pH 5.0 Ur Specific [place] 1.025 Urine Protein 100 H Urine Glucose (UA) Normal Urine Ketones 50 H Urine Occult Blood 10 H Urine Nitrite Negative Urine Bilirubin 1 H Urine Urobilinogen Normal Ur Leukocyte Esterase Negative Urine RBC 0-5 SEEN Urine WBC 0 SEEN Ur Squamous Epith Cells 0-5 SEEN Amorphous Sediment 1+ URATE Urine Bacteria 0 SEEN Urine Mucus 0 SEEN Radiography Diagnostic Testing: Clinical Impression(s) from Imaging Studies Abdomen/Pelvis CT 03/11/23 17:05 IMPRESSION: Findings consistent with nonspecific colitis. No evidence for small bowel obstruction or acute appendicitis Other findings as above Electronically Signed: Miguelito Ramirez MD at 20:30 EDT , Chest CTA 03/11/23 18:38 IMPRESSION: ASHD. No acute cardiopulmonary pathology. No evidence for pulmonary embolus. Electronically Signed: Miguelito Ramirez MD at 20:22 EDT , CT scan of the abdomen and pelvis was obtained. There are findings for nonspecific colitis. There is no evidence of obstruction or appendicitis. There is no free air or free fluid. This was interpreted by the radiologist andwas also independently reviewed by myself. Because of the elevated D-dimer, CTA of the chest was obtained. There is no evidence of pulmonary embolism or aortic dissection. This was interpreted by the radiologist and was also independently reviewed by myself. EKG Initial EKG: Attestation: I personally reviewed and interpreted this EKG as follows: Interpretation: Sinus Tachycardia (102) Comments: EKG was obtained. On my independent interpretation, it showed asinus tachycardia with a rate of 102. CO interval, QRS interval, and QTc intervals were all normal. There is left axis deviation at -33. There is left ventricular hypertrophy with nonspecific ST-T wave changes. Prior EKG tracings: available for review Prior: Unchanged (12/13/2022) Management Discussion w/another healthcare provider: Hospitalist Treatment and Re-Evaluation :: Patient was given IV fluids. Patient was given a dose of morphine and Zofran initially. Patient was unable to tolerate p.o. contrast with Zofran. Patient was given a dose of Reglan. Patient was given Cipro and Flagyl here. Patient given a dose of labetalol for his blood pressure. Patient was advised of his findings. Patient was advised of the need for admission to the hospital. Patient is agreeable with this. Case was discussed with the hospitalist. He will admit the patient to his service. Patient understood and was agreeable with the plan. All questions were answered. Discharge Plan Triage Chief Complaint: General Illness ED Provider: Wily Maldonado Dx/Rx/DC Orders Clinical Impression: Acute kidney injury, Diabetes mellitus, Colitis Prescriptions: No Action pantoprazole [Protonix] 40 mg tablet,delayed release (DR/EC) 40 mg PO BID 30 Days Qty: 60 1RF metformin 500 mg tablet 500 mg PO BID Patient Comments: take 1 tablet by mouth twice a day insulin glargine-yfgn 100 unit/mL (3 mL) Insulin Pen See Rx Instructions subcut DAILY Rx Instructions: subcutaneously daily; sliding scale based on bg test result ondansetron 4 mg tablet,disintegrating 4 mg PO Q8H PRN PRN (Reason: Nausea) Qty: 14 0RF promethazine 25 mg tablet 25 mg PO TID PRN (Reason: nausea and vomiting) Qty: 14 0RF sucralfate [Carafate] 1 gram tablet 1 g PO BID Qty: 30 0RF Primary Care Provider: Zayra Napier Referrals: Zayra Napier DO [Primary Care Provider] - Disposition Disposition: Acute Care Hospital [facility] What to do if you have Problems For any increased pain, shortness of breath, bleeding, nausea or vomiting, chestpain, or any unexpected problems, contact your Primary Care Provider. Call [facility] ([phone]) or report to the closest Emergency Room. Call 911 if necessary. [phone] <Electronically signed by Wily Maldonado DO> Cosigner Signature (if applicable): CC: Dr. Zayra Napier DO ~ Signed [facility] Work Phone: 1(530) 512-956307-06-2023 Procedure [facility] 12-13-2022 Procedure [facility]07-06-2023 Procedure note [facility]07-06-2023 Procedure [facility] 12-13-2022 Progress note Author Mariela Narvaez [facility] December 13, 2022 10:18am Note Date/Time December 13, 2022 7:28a [facility] Medical Records Department [address] [place] [address] Progress Note - Hospitalist 12/13/22726 MR#: [id number] Acct: [id number] Name: MORENO VILLEGAS Rep #:[id number] : 1960 62 From: Mariela Narvaez MD PCP: Dr. Zayra Napier, DO Status:ADM IN Location: [address] Reason for Visit Reason for Visit: Diagnoses Noninfective gastroenteritis and colitis, unspecified (12/10/22) Unspecified abdominal pain (12/10/22) Nausea with vomiting, unspecified (12/10/22) Subjective Subjective Patient reports he been feeling somewhat better yesterday during the day but hasabdominal pain again today, has had bowel movements with bowel prep for colonoscopy and endoscopy Objective Data Objective Data Vital Signs: Vital Signs Temp Pulse Resp BP Pulse Ox O2 Del Method O2 Flow Rate 98.6 F 91 18 159/100 H 98 Room Air 1 12/13/22 06:28 12/13/22 07:06 12/13/22 06:28 12/13/22 07:06 12/13/22 06:28 12/13/22 06:28 12/08/22 22:22 Oxygen Flow Rate (L/min) 1 Oxygen Delivery Method Room Air Weight: 123.632 kg Body Mass Index (BMI) 38.1 Intake & Output: Intake and Output for Last 24 Hours 12/11/22 12/12/22 12/13/22 23:59 23:59 23:59 Intake Total 1036.67 / 1036.67 5510 / 5510 Balance 1036.67 / 1036.67 5510 / 5510 Lab / Micro Data 12/13/22 04:30 12/13/22 04:30 Labs: Laboratory Results - last 24 hr 12/10/22 10:40: POC Glucose 188 H 12/12/22 10:25: POC Glucose 228 H 12/12/22 15:57: POC Glucose 197 H 12/12/22 21:42: POC Glucose 203 H 12/13/22 04:30: WBC 7.9, RBC 4.68, Hgb 14.8, Hct 41.4, MCV 88.5, MCH 31.6, MCHC 35.7, RDW Std Deviation 36.2, RDW Coeff of Billy 11.3 L, Plt Count 173, MPV 10.7, Immature Gran % (Auto) 0.400, Neut % (Auto) 48.0, Lymph % (Auto) 38.8, [place] % (Auto) 11.0 H, Eos % (Auto) 0.9, Baso % (Auto) 0.9, Absolute Neuts (auto) 3.8, Absolute Lymphs (auto) 3.07, Nucleated RBC % 0, Sodium 137, Potassium 2.9 L, Chloride 105, Carbon Dioxide 26.0, Anion Gap 6, BUN 14, Creatinine 0.83, Estim Creat Clear Calc 99.54, Est GFR (MDRD) Af Amer 121, Est GFR (MDRD) Non-Af 100, BUN/Creatinine Ratio 16.9, Glucose 154 H, Calcium 8.2 L, Total Bilirubin 1.10 H,AST 12 L, ALT 19, Alkaline Phosphatase 37 L, Total Protein 6.0 L, Albumin 3.0 L,Globulin 3.0, Albumin/Globulin Ratio 1.0 12/13/22 06:12: POC Glucose 165 H Micro: Microbiology 12/09/22 14:40 Stool Enteric Bacteriology - Final 12/09/22 14:40 Stool C. difficile DNA Amplification - Final Physical Exam Narrative General: Alert, oriented, appears to not be feeling well HEENT: Atraumatic, normocephalic Eyes: Anicteric, normal conjunctiva, extraocular movements grossly intact Neck: Supple Respiratory: Clear to auscultation bilaterally, normal respiratory effort Cardiovascular: Regular rate and rhythm GI: Soft, nondistended, no rebound, guarding, rigidity, has some tenderness but roughly unchanged from previous Extremities: No edema Musculoskeletal: Moving all extremities Neuro: No overt focal neurological deficits Skin: No rashes appreciated Psych: Cooperative Assessment & Plan Assessment/Plan (1) Nausea & vomiting: QUALIFIERS: Vomiting type: unspecified Qualified Code(s): R11.2 -Nausea with vomiting, unspecified PLAN: Plan Here 12/08 with intractable nausea, vomiting, diarrhea for 3 days with worsened abdominal discomfort and vomiting on day of presentation. #Intractable nausea and vomiting with diarrhea -Possibly secondary to gastroenteritis -White blood cell count within normal limits, initial lactic acid 2.5 and patient received IV fluids, repeat lactic improved to 1.8 -CT abdomen pelvis with no acute intra-abdominal findings -Has previous history of cholecystectomy -Pro-Brannon negative, lipase 76, T. bili 1.3 and normalized in the a.m. with otherwise normal liver panel, troponin 28 -Admitted due to not being able to tolerate p.o., given IVF and started on clears -Pain control, antiemetics as needed -Stool panel ordered but uncollected -12/09: Patient initially doing better and tolerating diet however 2 hours after lunch did develop some abdominal pain and nausea and had bowel movement, stool studies sent, discharge canceled, continue supportive care -12/10: Has waxed and waned, C. difficile and GI panel negative, ova and parasitespending, de-escalate diet, will repeat CT with IV and p.o. contrast -12/11: CT of abdomen demonstrated mild perinephric stranding and bladder distention but no other acute abnormalities. Patient still having abdominal pain and nausea, resume fluids. Postvoid yesterday with patient urinating 500 and having 250 left and bladder but he insisted he had been emptying well. Willcheck UA and repeat postvoid, suspect that urinary retention whether it be secondary to BPH or neurogenic from his uncontrolled diabetes. If this is is the case he will get relief from draining bladder. We will need to maintain regular bowel movements -12/12: Now having bowel movements, nausea slightly better but still has the abdominal pain, inflammatory markers within normal limits, unclear etiology, gastroenterology consulted -12/13: GI evaluated, patient for endoscopy and colonoscopy today #Hypokalemia -Replace #Type 2 diabetes mellitus -Glucose checks and sliding scale insulin -12/10: Hemoglobin A1c greater than 10, started 5 units of long-acting insulin -12/11: Increase long-acting insulin to 10, will likely need to be discharged homeon insulin -12/12: Continue to adjust as warranted #Hypertension -Received IV hydralazine -Continue to monitor to assess need for daily medication -12/10: Added amlodipine -12/11: Widely variable blood pressure, if this is urinary retention suspect bloodpressure will improve with treatment of underlying etiology -12/12: Increased amlodipine #Obesity -BMI 38.7 kg/m? -Complicates treatment, prognosis, outcomes -Recommend weight loss and lifestyle changes #hx JUANA -Given intractable nausea and vomiting his nightly CPAP was held temporarily with supplemental oxygen as needed #DVT ppx: We will add Lovenox subcu Mariela Narvaez MD Time spent in the patient's overall evaluation,decision-making process, review of diagnostic data, adjustment of management, discussion with other providers, nursing nursing and ancillary staff involved in patient's care documentation, 30minutes Charges/Coding Visit Charges Inpatient E&M: 79216 Subs Hosp L2 12/13/22 1018 <Electronically signed by Mariela Narvaez MD> Cosigner Signature (if applicable): CC: ~ Signed [facility] Work Phone: [phone] 188-438007-05-2023 Consult note Author Jt Olsen [facility] December 12, 2022 6:11pm Note Date/Time December 12, 2022 6:12p m [facility] Medical Records Department [address] [place] [address] Consultation - GI 12/12/22 1809 MR#: [id number] Acct: [id number] Name: MORENO VILLEGAS Rep #:[id number] : 1960 62 From: Jt Olsen DO PCP: Dr. Zayra Napier, Status:ADM IN [id number] HPI Consult Data Date of Consult: 12/12/22 HPI Narrative Reason for Consultation: Nausea and vomiting HPI Narrative: MORENO VILLEGAS, is a 62 M who presents with intractable nausea vomiting and diarrhea. He has a past medical history of GERD, Former tobacco use, Obesity, Diabetes mellitus type II, HTN, JUANA who presents to the [facility] ED on 12/08/22 with history of 3 days of persistent abdominal discomfort, nausea, emesis and loose stools with more severe diarrhea approximately 3 days ago with improvement of his loose stools however he then developed significant vomiting and on day of presentation had worsening lower abdominal discomfort with pain so severe he reports being at work and becoming very diaphoretic prompting ED evaluation. He notes he had a soft bowel movement today and it appears to be normalizing. He does still have abdominal discomfort primarily epigastric and proximal to hisumbilicus described as aching, worse with palpation. He does state he has had hiccups today frequently. Work-up in the ED included T95.7 Temporally with most recent 98.2 orally, heart rate 82, BP 185/94, respiratory rate 22, 98% on room air however most recent assessment BP 184/95, respiratory rate 16, 99% on 1 L nasal cannula, CBC with WC 6.6, hemoglobin 16, platelet 175 without marked shift, CMP with BUN/creatinine 20/1.20, anion gap 9, glucose 260, initial lacticacid 2.5 and repeat following ED interventions and hydration 1.8, T. bili 1.30 otherwise hepatic profile unremarkable, lipase 76, urinalysis with specific gravity 1.010, protein 30, glucose 1000, ketone 50, occult blood 10 with no obvious evidence of UTI, CT abdomen and pelvis with no acute intra-abdominal findings and incidentally noted small hiatal hernia. Currently he is starting to feel better but he has been having the symptoms off and on for the past 4 years. He has never had a colonoscopy. [facility] Medical History (Updated 12/09/22 @ 14:[address] Mariela Narvaez MD) Former tobacco use GERD (gastroesophageal reflux disease) Hypertension Obesity JUANA (obstructive sleep apnea) Type 2 diabetes mellitus Home Medications metformin 500 mg tablet 500 mg PO BID 30 days #60 tabs 12/09/22 [Rx Last Taken Unknown] ondansetron 4 mg disintegrating tablet 4 mg PO Q8H PRN PRN Nausea 5 days #10 tabs 12/09/22 [Rx Last Taken Unknown] Allergy/AdvReac Type Severity Reaction Status Date / Time No Known Allergies Allergy Verified 12/08/22 16:45 Family History (Updated 12/08/22 @ 22:[address] Kate Carrion MD) Mother Diabetes Heart disease Cancer Father No problems noted. Surgical History (Updated 12/08/22 @ 22:[address] Kate Carrion MD) History of cholecystectomy History of surgery on lower extremity Social History (Updated 12/08/22 @ 23:[address] Kate Carrion MD) household members: other details: Notes his son lives with him. Smoking Status: Former smoker alcohol intake: never substance use type: does not use ROS ROS Narrative Admission Review of Systems: CONSTITUTIONAL: No weight loss, fever, chills, + weakness or fatigue. HEENT: Eyes: No visual loss, blurred vision, double vision or yellow sclerae. Ears, Nose, Throat: No hearing loss, sneezing, congestion, runny nose or sore throat. SKIN: No rash or itching, lesions, wounds. CARDIOVASCULAR: No chest pain, chest pressure or chest discomfort, palpitations,edema, orthopnea, syncopal events. RESPIRATORY: No shortness of breath, cough or sputum, wheezing, hemoptysis. GASTROINTESTINAL: + anorexia, nausea, vomiting, diarrhea, abdominal pain, hiccups intermittently, No melena, BRBPR. GENITOURINARY: No dysuria, frequency, urgency or retention. NEUROLOGICAL: No headache, dizziness, syncope, paralysis, ataxia, numbness or tingling in the extremities, focal weakness, change in bowel or bladder control,seizure. MUSCULOSKELETAL: No muscle, back pain, joint pain or stiffness. HEMATOLOGIC: No anemia, bleeding or bruising. LYMPHATICS: No enlarged nodes. No history of splenectomy. PSYCHIATRIC: No history of depression or anxiety. ENDOCRINOLOGIC: + reports of sweating. No cold or heat intolerance. No polyuria or polydipsia. ALLERGIES: No history of asthma, hives, eczema or rhinitis. Physical Exam Narrative General: Alert, oriented, appears to not be feeling well HEENT: Atraumatic, normocephalic Eyes: Anicteric, normal conjunctiva, extraocular movements grossly intact Neck: Supple Respiratory: Clear to auscultation bilaterally, normal respiratory effort Cardiovascular: Regular rate and rhythm GI: Soft, nondistended, no rebound, guarding, rigidity, has some tenderness moreso left lower area more than right Extremities: No edema Musculoskeletal: Moving all extremities Neuro: No overt focal neurological deficits Skin: No rashes appreciated Psych: Cooperative Lab / Micro Data 12/12/22 05:50 12/12/22 05:50 Labs: Laboratory Results - last 24 hr 12/10/22 10:40: POC Glucose 188 H 12/11/22 06:17: POC Glucose 234 H 12/11/22 20:49: POC Glucose 209 H 12/12/22 05:50: WBC 6.7, RBC 5.11, Hgb 16.1, Hct 44.0, MCV 86.1, MCH 31.5, MCHC 36.6 H, RDW Std Deviation 35.6, RDW Coeff of Billy 11.2 L, Plt Count 162, MPV 10.4, Immature Gran % (Auto) 0.600, Neut % (Auto) 66.0, Lymph % (Auto) 22.5, [place] % (Auto) 10.2 H, Eos % (Auto) 0.1, Baso % (Auto) 0.6, Absolute Neuts (auto)4.4, Absolute Lymphs (auto) 1.50, Nucleated RBC % 0, Sodium 135 L, Potassium 3.3L, Chloride 103, Carbon Dioxide 24.0, Anion Gap 8, BUN 14, Creatinine 0.77, Estim Creat Clear Calc 107.30, Est GFR (MDRD) Af Amer 132, Est GFR (MDRD) Non-Af109, BUN/Creatinine Ratio 18.2, Glucose 216 H, Calcium 8.5, Total Bilirubin 1.20H, AST 14 L, ALT 19, Alkaline Phosphatase 43 L, Total Protein 6.5, Albumin 3.2, Globulin 3.3, Albumin/Globulin Ratio 1.0 12/12/22 06:35: POC Glucose 219 H 12/12/22 10:25: POC Glucose 228 H 12/12/22 15:57: POC Glucose 197 H Assessment & Plan Assessment/Plan (1) Gastroenteritis: (2) Abdominal pain: (3) Nausea & vomiting: QUALIFIERS: Vomiting type: unspecified Qualified Code(s): R11.2 -Nausea with vomiting, unspecified PLAN: Plan 62 gentleman comes in with acute nausea vomiting thought to be secondary to acute viral gastroenteritis. He has a history of diabetes, hypertension, BC D who has been experiencing some intermittent worsening abdominal pain and diarrhea. Differential diagnosis for that would be accelerated gastrocolic reflex, dumping syndrome, bile induced gastritis and exocrine pancreatic insufficiency. He should undergo an upper and lower endoscopy as he has never had a colonoscopy in the past. He was explained alternatives, risk, benefits including not withstanding bleeding, infection, sepsis, perforation, need for emergent urgent . He will have an ASA of 3. Charges/Coding Visit Charges Inpatient E&M: 53946 Init Hosp L2 12/12/221810 <Electronically signed by Jt Friend > Cosigner Signature (if applicable): CC: Dr. Kate Carrion MD; Dr. Zayra Napier DO~ Signed [facility] Work Phone: [phone]) 166-887207-05-2023 Progress note Author Mariela Narvaez [facility] December 12, 2022 9:27am Note Date/Time December 12, 2022 9:27a [facility] Medical Records Department [address] [place] [address] Progress Note - Hospitalist 12/12/2226 MR#: [id number] Acct: [id number] Name: MORENO VILLEGAS Rep #:[id number] : 1960 62 From: Mariela Narvaez MD PCP: Dr. Zayra Napier, DO Status:ADM IN Location: [id number] Reason for Visit Reason for Visit: Diagnoses Noninfective gastroenteritis and colitis, unspecified (12/10/22) Nausea with vomiting, unspecified (12/10/22) Subjective Subjective Nausea slightly better today and did have bowel movement however still has the abdominal pain Objective Data Objective Data Vital Signs: Vital Signs Temp Pulse Resp BP Pulse Ox O2 Del Method O2 Flow Rate 98 F 85 18 155/101 H 98 Room Air 1 12/12/22 08:30 12/12/22 08:30 12/12/22 08:30 12/12/22 08:30 12/12/22 08:30 12/12/22 08:36 12/08/22 22:22 Oxygen Flow Rate (L/min) 1 Oxygen Delivery Method Room Air Weight: 125.673 kg Body Mass Index (BMI) 38.7 Intake & Output: Intake and Output for Last 24 Hours 12/10/22 12/11/22 12/12/22 23:59 23:59 23:59 Intake Total 1140 / 1140 1036.67 / 1036.67 1200 / 1200 Output Total 500 / 500 Balance 640 / 640 1036.67 / 1036.67 1200 / 1200 Lab / Micro Data 12/12/22 05:50 12/12/22 05:50 Labs: Laboratory Results - last 24 hr 12/11/22 06:17: ESR 12, C-React Prot Ext Range < 2.90, POC Glucose 234 H 12/11/22 09:59: POC Glucose 230 H 12/11/22 11:30: Urine Color Yellow, Urine Clarity Clear, Urine pH 6.5, Ur Specific [place] 1.015, Urine Protein 100 H, Urine Glucose (UA) 1000 H, Urine Ketones 50 H, Urine Occult Blood 25 H, Urine Nitrite Negative, Urine Bilirubin Negative, Urine Urobilinogen Normal, Ur Leukocyte Esterase Negative, Urine RBC 0-5 SEEN, Urine WBC 0-5 SEEN, Ur Squamous Epith Cells 0 SEEN, Urine Bacteria 0 SEEN, Urine Mucus 0 SEEN, Urine Osmolality 593, Ur Random Sodium 135, Urine Creatinine 58.00, Urine Potassium 30.0, Urine Chloride 150, Urine Urea Nitrogen 470 12/11/22 16:34: POC Glucose 202 H 12/11/22 20:49: POC Glucose 209 H 12/12/22 05:50: WBC 6.7, RBC 5.11, Hgb 16.1, Hct 44.0, MCV 86.1, MCH 31.5, MCHC 36.6 H, RDW Std Deviation 35.6, RDW Coeff of Billy 11.2 L, Plt Count 162, MPV 10.4, Immature Gran % (Auto) 0.600, Neut % (Auto) 66.0, Lymph % (Auto) 22.5, [place] % (Auto) 10.2 H, Eos % (Auto) 0.1, Baso % (Auto) 0.6, Absolute Neuts (auto)4.4, Absolute Lymphs (auto) 1.50, Nucleated RBC % 0, Sodium 135 L, Potassium 3.3L, Chloride 103, Carbon Dioxide 24.0, Anion Gap 8, BUN 14, Creatinine 0.77, Estim Creat Clear Calc 107.30, Est GFR (MDRD) Af Amer 132, Est GFR (MDRD) Non-Af109, BUN/Creatinine Ratio 18.2, Glucose 216 H, Calcium 8.5, Total Bilirubin 1.20H, AST 14 L, ALT 19, Alkaline Phosphatase 43 L, Total Protein 6.5, Albumin 3.2, Globulin 3.3, Albumin/Globulin Ratio 1.0 12/12/22 06:35: POC Glucose 219 H Micro: Microbiology 12/09/22 14:40 Stool Enteric Bacteriology - Final 12/09/22 14:40 Stool C. difficile DNA Amplification - Final Physical Exam Narrative General: Alert, oriented, appears to not be feeling well HEENT: Atraumatic, normocephalic Eyes: Anicteric, normal conjunctiva, extraocular movements grossly intact Neck: Supple Respiratory: Clear to auscultation bilaterally, normal respiratory effort Cardiovascular: Regular rate and rhythm GI: Soft, nondistended, no rebound, guarding, rigidity, has some tenderness moreso left lower area more than right Extremities: No edema Musculoskeletal: Moving all extremities Neuro: No overt focal neurological deficits Skin: No rashes appreciated Psych: Cooperative Assessment & Plan Assessment/Plan (1) Nausea & vomiting: QUALIFIERS: Vomiting type: unspecified Qualified Code(s): R11.2 -Nausea with vomiting, unspecified PLAN: Plan Here 12/08 with intractable nausea, vomiting, diarrhea for 3 days with worsened abdominal discomfort and vomiting on day of presentation. #Intractable nausea and vomiting with diarrhea -Possibly secondary to gastroenteritis -White blood cell count within normal limits, initial lactic acid 2.5 and patient received IV fluids, repeat lactic improved to 1.8 -CT abdomen pelvis with no acute intra-abdominal findings -Has previous history of cholecystectomy -Pro-Brannon negative, lipase 76, T. bili 1.3 and normalized in the a.m. with otherwise normal liver panel, troponin 28 -Admitted due to not being able to tolerate p.o., given IVF and started on clears -Pain control, antiemetics as needed -Stool panel ordered but uncollected -12/09: Patient initially doing better and tolerating diet however 2 hours after lunch did develop some abdominal pain and nausea and had bowel movement, stool studies sent, discharge canceled, continue supportive care -12/10: Has waxed and waned, C. difficile and GI panel negative, ova and parasitespending, de-escalate diet, will repeat CT with IV and p.o. contrast -12/11: CT of abdomen demonstrated mild perinephric stranding and bladder distention but no other acute abnormalities. Patient still having abdominal pain and nausea, resume fluids. Postvoid yesterday with patient urinating 500 and having 250 left and bladder but he insisted he had been emptying well. Willcheck UA and repeat postvoid, suspect that urinary retention whether it be secondary to BPH or neurogenic from his uncontrolled diabetes. If this is is the case he will get relief from draining bladder. We will need to maintain regular bowel movements -12/12: Now having bowel movements, nausea slightly better but still has the abdominal pain, inflammatory markers within normal limits, unclear etiology, gastroenterology consulted #Type 2 diabetes mellitus -Glucose checks and sliding scale insulin -12/10: Hemoglobin A1c greater than 10, started 5 units of long-acting insulin -12/11: Increase long-acting insulin to 10, will likely need to be discharged homeon insulin -12/12: Continue to adjust as warranted #Hypertension -Received IV hydralazine -Continue to monitor to assess need for daily medication -12/10: Added amlodipine -12/11: Widely variable blood pressure, if this is urinary retention suspect bloodpressure will improve with treatment of underlying etiology -12/12: Increased amlodipine #Obesity -BMI 38.7 kg/m? -Complicates treatment, prognosis, outcomes -Recommend weight loss and lifestyle changes #hx JUANA -Given intractable nausea and vomiting his nightly CPAP was held temporarily with supplemental oxygen as needed #DVT ppx: We will add Lovenox subcu Mariela Narvaez MD Time spent in the patient's overall evaluation,decision-making process, review of diagnostic data, adjustment of management, discussion with other providers, nursing nursing and ancillary staff involved in patient's care documentation, 36minutes Charges/Coding Visit Charges Inpatient E&M: 81649 Subs Hosp L3 12/12/22 0927 <Electronically signed by Mariela Narvaez MD> Cosigner Signature (if applicable): CC: ~ Signed [facility] Work Phone: [phone] 308-932207-04-2023 Progress note Author Mariela Narvaez [facility] December 11, 2022 12:22pm Note Date/Time December 11, 2022 8:01a [facility] Medical Records Department [address] [place] [address] Progress Note - Hospitalist 12/11/22 0757 MR#: [id number] Acct: [id number] Name: MORENO VILLEGAS Rep #:[id number] : 1960 62 From: Mariela Narvaez MD PCP: Dr. Zayra Napier, DO Status:ADM IN Location: [place] [address]-1 Reason for Visit Reason for Visit: Diagnoses Noninfective gastroenteritis and colitis, unspecified (12/10/22) Nausea with vomiting, unspecified (12/10/22) Subjective Subjective Patient continues to have abdominal pain, still some nausea, no bowel movement since day before yesterday but is passing gas Objective Data Objective Data Vital Signs: Vital Signs Temp Pulse Resp BP Pulse Ox O2 Del Method O2 Flow Rate 98.4 F 81 16 157/97 H 94 Room Air 1 12/11/22 02:40 12/11/22 02:40 12/11/22 02:40 12/11/22 02:40 12/11/22 06:52 12/11/22 06:52 12/08/22 22:22 Oxygen Flow Rate (L/min) 1 Oxygen Delivery Method Room Air Weight: 125.673 kg Body Mass Index (BMI) 38.7 Intake & Output: Intake and Output for Last 24 Hours 12/09/22 12/10/22 12/11/22 23:59 23:59 23:59 Intake Total 3230 / 3230 1140 / 1140 Output Total 750 / 750 500 / 500 Balance 2480 / 2480 640 / 640 Lab / Micro Data 12/11/22 06:17 12/11/22 06:17 Labs: Laboratory Results - last 24 hr 12/10/22 05:55: Hemoglobin A1c 10.9 H 12/10/22 15:53: POC Glucose 222 H 12/10/22 21:45: POC Glucose 252 H 12/11/22 06:17: WBC 6.5, RBC 5.07, Hgb 16.0, Hct 44.3, MCV 87.4, MCH 31.6, MCHC 36.1 H, RDW Std Deviation 36.4, RDW Coeff of Billy 11.4 L, Plt Count 154, MPV 11.3, Immature Gran % (Auto) 0.600, Neut % (Auto) 64.4, Lymph % (Auto) 23.9, [place] % (Auto) 10.2 H, Eos % (Auto) 0.3, Baso % (Auto) 0.6, Absolute Neuts (auto)4.2, Absolute Lymphs (auto) 1.55, Nucleated RBC % 0, Sodium 132 L, Potassium 3.5, Chloride 101, Carbon Dioxide 22.0, Anion Gap 9, BUN 16, Creatinine 0.93, Estim Creat Clear Calc 88.84, Est GFR (MDRD) Af Amer 106, Est GFR (MDRD) Non-Af 88, BUN/Creatinine Ratio 17.3, Glucose 231 H, Calcium 9.0, Total Bilirubin 1.20 H, AST 18, ALT 23, Alkaline Phosphatase 45, Total Protein 7.0, Albumin 3.4, Globulin 3.6, Albumin/Globulin Ratio 0.9 Micro: Microbiology 12/09/22 14:40 Stool Enteric Bacteriology - Final 12/09/22 14:40 Stool C. difficile DNA Amplification - Final Radiography Diagnostic Testing: Radiology Impression Abdomen/Pelvis CT 12/10/22 09:58 IMPRESSION: Distended urinary bladder. Status post cholecystectomy. Fatty infiltration of the liver. Electronically Signed: Feng Neri MD at 14:38 EDT , Physical Exam Narrative General: Alert, oriented, appears to not be feeling well HEENT: Atraumatic, normocephalic Eyes: Anicteric, normal conjunctiva, extraocular movements grossly intact Neck: Supple Respiratory: Clear to auscultation bilaterally, normal respiratory effort Cardiovascular: Regular rate and rhythm GI: Soft, nondistended, no rebound, guarding, rigidity, has some tenderness moreso left lower area than right but complains of periumbilical pain Extremities: No edema Musculoskeletal: Moving all extremities Neuro: No overt focal neurological deficits Skin: No rashes appreciated Psych: Cooperative Assessment & Plan Assessment/Plan (1) Nausea & vomiting: QUALIFIERS: Vomiting type: unspecified Qualified Code(s): R11.2 -Nausea with vomiting, unspecified PLAN: Plan Here 12/08 with intractable nausea, vomiting, diarrhea for 3 days with worsened abdominal discomfort and vomiting on day of presentation. #Intractable nausea and vomiting with diarrhea -Possibly secondary to gastroenteritis -White blood cell count within normal limits, initial lactic acid 2.5 and patient received IV fluids, repeat lactic improved to 1.8 -CT abdomen pelvis with no acute intra-abdominal findings -Has previous history of cholecystectomy -Pro-Brannon negative, lipase 76, T. bili 1.3 and normalized in the a.m. with otherwise normal liver panel, troponin 28 -Admitted due to not being able to tolerate p.o., given IVF and started on clears -Pain control, antiemetics as needed -Stool panel ordered but uncollected -12/09: Patient initially doing better and tolerating diet however 2 hours after lunch did develop some abdominal pain and nausea and had bowel movement, stool studies sent, discharge canceled, continue supportive care -12/10: Has waxed and waned, C. difficile and GI panel negative, ova and parasitespending, de-escalate diet, will repeat CT with IV and p.o. contrast -12/11: CT of abdomen demonstrated mild perinephric stranding and bladder distention but no other acute abnormalities. Patient still having abdominal pain and nausea, resume fluids. Postvoid yesterday with patient urinating 500 and having 250 left and bladder but he insisted he had been emptying well. Willcheck UA and repeat postvoid, suspect that urinary retention whether it be secondary to BPH or neurogenic from his uncontrolled diabetes. If this is is the case he will get relief from draining bladder. We will need to maintain regular bowel movements #Type 2 diabetes mellitus -Glucose checks and sliding scale insulin -12/10: Hemoglobin A1c greater than 10, started 5 units of long-acting insulin -12/11: Increase long-acting insulin to 10, will likely need to be discharged homeon insulin #Hypertension -Received IV hydralazine -Continue to monitor to assess need for daily medication -12/10: Added amlodipine -12/11: Widely variable blood pressure, if this is urinary retention suspect bloodpressure will improve with treatment of underlying etiology #Obesity -BMI 38.7 kg/m? -Complicates treatment, prognosis, outcomes -Recommend weight loss and lifestyle changes #hx JUANA -Given intractable nausea and vomiting his nightly CPAP was held temporarily with supplemental oxygen as needed #DVT ppx: We will add Lovenox subcu Mariela Narvaez MD Time spent in the patient's overall evaluation,decision-making process, review of diagnostic data, adjustment of management, discussion with other providers, nursing nursing and ancillary staff involved in patient's care documentation, 36minutes Charges/Coding Visit Charges Inpatient E&M: 38825 Subs Hosp 12/11/22 1222 <Electronically signed by Mariela Narvaez MD> Cosigner Signature (if applicable): CC: ~ Signed [facility] Work Phone: [phone] Progress note Author Mariela Narvaez [facility] December 10, 2022 10:01am Note Date/Time December 10, 2022 9:57a m [facility] Medical Records Department [address] [place] [address] Progress Note - Hospitalist 12/10/22 0953 MR#: [id number] Acct: [id number] Name: MORENO VILLEGAS Rep #:[id number] : 1960 62 From: Mariela Narvaez MD PCP: Dr. Zayra Napier, DO Status:ADM TIA Location: MS3 NW363-2 Reason for Visit Reason for Visit: Diagnoses Noninfective gastroenteritis and colitis, unspecified (12/08/22) Nausea with vomiting, unspecified (12/08/22) Subjective Subjective Patient still having abdominal pain and nausea, only had 1 bowel movement overnight Objective Data Objective Data Vital Signs: Vital Signs Temp Pulse Resp BP Pulse Ox O2 Del Method O2 Flow Rate 98.9 F 100 20 H 170/80 H 98 Room Air 1 12/10/22 08:08 12/10/22 08:12 12/10/22 08:08 12/10/22 08:08 12/10/22 08:08 12/10/22 08:12 12/08/22 22:22 Oxygen Flow Rate (L/min) 1 Oxygen Delivery Method Room Air Weight: 125.827 kg Body Mass Index (BMI) 38.7 Intake & Output: Intake and Output for Last 24 Hours 12/08/22 12/09/22 12/10/22 23:59 23:59 23:59 Intake Total 1999 3230 / 3230 800 / 800 Output Total 750 / 750 Balance 1999 2480 / 2480 800 / 800 Lab / Micro Data 12/09/22 05:26 12/10/22 05:50 Labs: Laboratory Results - last 24 hr 12/09/22 11:51: POC Glucose 287 H 12/09/22 17:10: POC Glucose 313 H 12/09/22 23:14: POC Glucose 242 H 12/10/22 05:46: POC Glucose 247 H 12/10/22 05:50: Sodium 135 L, Potassium 3.5, Chloride 106, Carbon Dioxide 24.0, Anion Gap 5, BUN 19 H, Creatinine 0.98, Estim Creat Clear Calc 84.31, Est GFR (MDRD) Af Amer 100, Est GFR (MDRD) Non-Af 83, BUN/Creatinine Ratio 19.4, Waygcmw145 H, Calcium 8.8 12/10/22 05:55: Hemoglobin A1c 10.9 H Micro: Microbiology 12/09/22 14:40 Stool Enteric Bacteriology - Final 12/09/22 14:40 Stool C. difficile DNA Amplification - Final Physical Exam Narrative General: Alert, oriented, appears to not be feeling this well HEENT: Atraumatic, normocephalic Eyes: Anicteric, normal conjunctiva, extraocular movements grossly intact Neck: Supple Respiratory: Clear to auscultation bilaterally, normal respiratory effort Cardiovascular: Regular rate and rhythm GI: Soft, nondistended, no rebound, guarding, rigidity Extremities: No edema Musculoskeletal: Moving all extremities Neuro: No overt focal neurological deficits Skin: No rashes appreciated Psych: Cooperative Assessment & Plan Assessment/Plan (1) Nausea & vomiting: QUALIFIERS: Vomiting type: unspecified Qualified Code(s): R11.2 -Nausea with vomiting, unspecified PLAN: Plan Here 12/08 with intractable nausea, vomiting, diarrhea for 3 days with worsened abdominal discomfort and vomiting on day of presentation. #Intractable nausea and vomiting with diarrhea -Possibly secondary to gastroenteritis -White blood cell count within normal limits, initial lactic acid 2.5 and patient received IV fluids, repeat lactic improved to 1.8 -CT abdomen pelvis with no acute intra-abdominal findings -Has previous history of cholecystectomy -Pro-Brannon negative, lipase 76, T. bili 1.3 and normalized in the a.m. with otherwise normal liver panel, troponin 28 -Admitted due to not being able to tolerate p.o., given IVF and started on clears -Pain control, antiemetics as needed -Stool panel ordered but uncollected -12/09: Patient initially doing better and tolerating diet however 2 hours after lunch did develop some abdominal pain and nausea and had bowel movement, stool studies sent, discharge canceled, continue supportive care -12/10: Has waxed and waned, C. difficile and GI panel negative, ova and parasitespending, de-escalate diet, will repeat CT with IV and p.o. contrast #Type 2 diabetes mellitus -Glucose checks and sliding scale insulin -12/10: Hemoglobin A1c greater than 10, started 5 units of long-acting insulin #Hypertension -Received IV hydralazine -Continue to monitor to assess need for daily medication -12/10: Added amlodipine #Obesity -BMI 38.7 kg/m? -Complicates treatment, prognosis, outcomes -Recommend weight loss and lifestyle changes #hx JUANA -Given intractable nausea and vomiting his nightly CPAP was held temporarily with supplemental oxygen as needed #DVT ppx: We will add Lovenox subcu Mariela Narvaez MD Time spent in the patient's overall evaluation,decision-making process, review of diagnostic data, adjustment of management, discussion with other providers, nursing nursing and ancillary staff involved in patient's care documentation, 36minutes Charges/Coding Visit Charges Inpatient E&M: 53753 Subs Hosp L3 12/10/22 1001 <Electronically signed by Mariela Narvaez MD> Cosigner Signature (if applicable): CC: ~ Signed [facility] Work Phone: 1(168) 667-756907-02-2023 Progress note Author [facility] December 09, 2022 3:08pm Note Date/Time December 09, 2022 3:08p [facility] Medical Records Department [address] [place] [address] Progress Note - Hospitalist 12/09/22 1507 MR#: [id number] Acct: [id number] Name: MORENO VILLEGAS Rep #:[id number] : 1960 62 From: Mariela Narvaez MD PCP: Dr. Zayra Napier, DO Status:ADM TIA Location: [place] [address] Hospitalist Note Initial plan for patient to leave as he was feeling better however 2 hours aftereating he developed some abdominal pain and nausea, will cancel DC for today andcontinue supportive care, did have bowel movement now so stool studies sent 12/09/22 1508 <Electronically signed by Mariela Narvaez MD> Cosigner Signature (if applicable): CC: ~ Signed [facility] Work Phone: 1(792) 865-239907-02-2023 Progress note Author [facility] December 09, 2022 3:07pm Note Date/Time December 09, 2022 8:01a [facility] Medical Records Department [address] [place] [address] Progress Note - Hospitalist 12/09/22 0754 MR#: [id number] Acct: [id number] Name: MORENO VILLEGAS Rep #:[id number] : 1960 62 From: Mariela Narvaez MD PCP: Dr. Zayra Napier, DO Status:ADM TIA Location: [place] [address] Reason for Visit Reason for Visit: Diagnoses Nausea with vomiting, unspecified (12/08/22) Subjective Subjective Patient initially feeling better midmorning and had tolerated lunch and wanted to go home however several hours after lunch developed pain and nausea again patient was kept Objective Data Objective Data Vital Signs: Vital Signs Temp Pulse Resp BP Pulse Ox O2 Del Method O2 Flow Rate 98.4 F 100 20 H 149/83 H 94 Room Air 1 12/09/22 06:07 12/09/22 06:07 12/09/22 06:07 12/09/22 06:07 12/09/22 07:30 12/09/22 07:30 12/08/22 22:22 Oxygen Flow Rate (L/min) 1 Oxygen Delivery Method Room Air Weight: 125.827 kg Body Mass Index (BMI) 38.7 Intake & Output: Intake and Output for Last 24 Hours 12/07/22 12/08/22 12/09/22 23:59 23:59 23:59 Intake Total 1999 160 / 160 Output Total 600 / 600 Balance 1999 -440 / -440 Lab / Micro Data 12/09/22 05:26 12/09/22 05:26 Labs: Laboratory Results - last 24 hr 12/08/22 17:05: WBC 6.6, RBC 5.11, Hgb 16.0, Hct 45.9, MCV 89.8, MCH 31.3, MCHC 34.9, RDW Std Deviation 37.2, RDW Coeff of Billy 11.3 L, Plt Count 175, MPV 10.8, Immature Gran % (Auto) 0.500, Neut % (Auto) 68.1, Lymph % (Auto) 21.1, [place] % (Auto) 8.9, Eos % (Auto) 0.6, Baso % (Auto) 0.8, Absolute Neuts (auto) 4.5, Absolute Lymphs (auto) 1.38, Nucleated RBC % 0, Sodium 136, Potassium 4.4, Chloride 102, Carbon Dioxide 25.0, Anion Gap 9, BUN 20 H, Creatinine 1.20, Estim Creat Clear Calc 68.85, Est GFR (MDRD) Af Amer 79, Est GFR (MDRD) Non-Af 65, BUN/Creatinine Ratio 16.7, Glucose 260 H, Lactic Acid 2.5 H*, Calcium 10.0, Total Bilirubin 1.30 H, AST 20, ALT 29, Alkaline Phosphatase 54, Total Protein 7.9, Albumin 4.3, Globulin 3.6, Albumin/Globulin Ratio 1.2, Lipase 76 H 12/08/22 17:26: POC Glucose 275 H 12/08/22 18:35: Urine Color Yellow, Urine Clarity Sl. Cloudy, Urine pH 7.0, Ur Specific [place] 1.010, Urine Protein 30 H, Urine Glucose (UA) 1000 H, Urine Ketones 50 H, Urine Occult Blood 10 H, Urine Nitrite Negative, Urine Bilirubin Negative, Urine Urobilinogen Normal, Ur Leukocyte Esterase Negative, Urine RBC 0SEEN, Urine WBC 0 SEEN, Ur Squamous Epith Cells 0 SEEN, Urine Bacteria 0 SEEN, Urine Mucus 0 SEEN 12/08/22 21:20: Lactic Acid 1.8 12/08/22 22:25: Procalcitonin < 0.04 12/08/22 23:30: Troponin I High Sens 28 12/08/22 23:42: POC Glucose 271 H 12/09/22 05:26: WBC 7.8, RBC 4.92, Hgb 15.4, Hct 44.4, MCV 90.2, MCH 31.3, MCHC 34.7, RDW Std Deviation 38.1, RDW Coeff of Billy 11.6, Plt Count 181, MPV 11.1, Immature Gran % (Auto) 0.500, Neut % (Auto) 78.8 H, Lymph % (Auto) 12.7 L, [place] % (Auto) 7.7, Eos % (Auto) 0.0, Baso % (Auto) 0.3, Absolute Neuts (auto) 6.1, Absolute Lymphs (auto) 0.99, Nucleated RBC % 0, Sodium 137, Potassium 3.8, Chloride 105, Carbon Dioxide 24.0, Anion Gap 8, BUN 18, Creatinine 1.02, Estim Creat Clear Calc 81.00, Est GFR (MDRD) Af Amer 95, Est GFR (MDRD) Non-Af 79, BUN/Creatinine Ratio 17.6, Glucose 248 H, Calcium 9.1, Total Bilirubin 1.00, AST14 L, ALT 24, Alkaline Phosphatase 48, Total Protein 7.3, Albumin 3.9, Globulin 3.4, Albumin/Globulin Ratio 1.1 12/09/22 06:13: POC Glucose 260 H Radiography Diagnostic Testing: Radiology Impression Abdomen/Pelvis CT 12/08/22 16:59 IMPRESSION: No acute abnormality. Small hiatal hernia. Electronically Signed: Cristopher Thomas MD at 19:29 EDT , Physical Exam Narrative General: Alert, oriented, no apparent distress HEENT: Atraumatic, normocephalic Eyes: Anicteric, normal conjunctiva, extraocular movements grossly intact Neck: Supple Respiratory: Clear to auscultation bilaterally, normal respiratory effort Cardiovascular: Regular rate and rhythm GI: Soft, nontender, nondistended Extremities: No edema Musculoskeletal: Moving all extremities Neuro: No overt focal neurological deficits Skin: No rashes appreciated Psych: Cooperative Assessment & Plan Assessment/Plan (1) Nausea & vomiting: PLAN: Plan Here 12/08 with intractable nausea, vomiting, diarrhea for 3 days with worsened abdominal discomfort and vomiting on day of presentation. #Intractable nausea and vomiting with diarrhea -Possibly secondary to gastroenteritis -White blood cell count within normal limits, initial lactic acid 2.5 and patient received IV fluids, repeat lactic improved to 1.8 -CT abdomen pelvis with no acute intra-abdominal findings -Has previous history of cholecystectomy -Pro-Brannon negative, lipase 76, T. bili 1.3 and normalized in the a.m. with otherwise normal liver panel, troponin 28 -Admitted due to not being able to tolerate p.o., given IVF and started on clears -Pain control, antiemetics as needed -Stool panel ordered but uncollected -12/09: Patient initially doing better and tolerating diet however 2 hours after lunch did develop some abdominal pain and nausea and had bowel movement, stool studies sent, discharge canceled, continue supportive care #Type 2 diabetes mellitus -Glucose checks and sliding scale insulin #Hypertension -Received IV hydralazine -Continue to monitor to assess need for daily medication #Obesity -BMI 38.7 kg/m? -Complicates treatment, prognosis, outcomes -Recommend weight loss and lifestyle changes #hx JUANA -Given intractable nausea and vomiting his nightly CPAP was held temporarily with supplemental oxygen as needed #DVT ppx: Low risk, ambulatory Mariela Narvaez MD Time spent in the patient's overall evaluation,decision-making process, review of diagnostic data, adjustment of management, discussion with other providers, nursing nursing and ancillary staff involved in patient's care documentation, 36minutes Charges/Coding Visit Charges Inpatient E&M: 63044 Subs Hosp L3 12/09/22 1507 <Electronically signed by Mariela Narvaez MD> Cosigner Signature (if applicable): CC: ~ Signed [facility] Work Phone: 1(448) 657-561507-02-2023 Discharge summary Author Mariela Narvaez [facility] December 09, 2022 2:44pm Note Date/Time December 09, 2022 2:45p m [facility] Medical Records Department [address] [place] [address] Discharge Summary 12/09/22 1441 MR#: [id number] Acct: [id number] Name: MORENO VILLEGAS Rep #:[id number] : 1960 62 From: Mariela Narvaez MD PCP: Dr. Zayra Napier, Status:ADM TIA Location: [place] [address] Providers Date of Admission: 12/08/22 Date of Discharge: 12/09/22 Primary Care Physician: Dr. Zayra Napier DO Reason For Visit: ACUTE Gastroenteritis Diagnosis Discharge Diagnosis (1) Nausea & vomiting: Status: Acute Code(s): R11.2 - Nausea with vomiting, unspecified Qualifiers: Vomiting type: unspecified Qualified Code(s): R11.2 - Nausea with vomiting, unspecified (2) Gastroenteritis: Status: Acute Code(s): K52.9 - Noninfective gastroenteritis and colitis, unspecified Plan #Intractable nausea and vomiting with diarrhea likely secondary to self limited gastroenteritis #Type 2 diabetes mellitus #Hypertension #Obesity #hx JUANA Medications at Discharge Home Medications metformin 500 mg tablet 500 mg PO BID 30 days #60 tabs 12/09/22 ondansetron 4 mg disintegrating tablet 4 mg PO Q8H PRN PRN Nausea 5 days #10 tabs 12/09/22 Hospital Course Summary of Care Provided Minutes Spent on Discharge: 31 Hospital Course: Here 12/08 with intractable nausea, vomiting, diarrhea for 3 days with worsened abdominal discomfort and vomiting on day of presentation. Patient was admitted and started IV fluids and given clear liquids. Patient had an episode of vomiting early in the morning and then took a nap and then felt much better afterwards and tolerated transitional diet felt much better overall. Had not had another bowel movement after admission so stool studies unable to be sent. Given clinical picture, presentation, resolution suspect most likely culprit gastroenteritis. Patient improved with supportive care. On day of discharge heis feeling much better.due to short duration of hospitalization and rapid improvement patient did not have titration of any new glucose or blood pressure medications but is strongly recommended to follow close with his PCP for furthermonitoring/evaluation/management. Discharge instructions as followed: -You had Zofran sent to the [facility] pharmacy to take as needed for nausea -Would recommend following with your primary care physician as you did have elevated blood pressure and blood sugar, this may improve once you are no longerill but recommend following closely in the event a need to be started on blood pressure medication or have other lifestyle changes recommended -Additionally you did have elevated blood sugar and will be important to get this controlled, would recommend you resume metformin and have this titrated/further adjusted on and outpatient basis by your primary care physician. New prescription was sent in to the [facility] pharmacy in [place]. If you begin taking this and have any further diarrhea or abdominal upset pleasediscontinue this medication call your primary care physician for further instructions -Please call your primary care provider's office upon discharge to schedule a hospital follow up within 1 week. -For any concerning signs or symptoms please call 911 or proceed to the nearest emergency department Physical Exam Narrative General: Alert, oriented, no apparent distress HEENT: Atraumatic, normocephalic Eyes: Anicteric, normal conjunctiva, extraocular movements grossly intact Neck: Supple Respiratory: Clear to auscultation bilaterally, normal respiratory effort Cardiovascular: Regular rate and rhythm GI: Soft, nontender, nondistended Extremities: No edema Musculoskeletal: Moving all extremities Neuro: No overt focal neurological deficits Skin: No rashes appreciated Psych: Cooperative Weight / BMI Weight Weight: 125.827 kg Body Mass Index (BMI) 38.7 ABG / Lab / Microbiology Data 12/09/22 05:26 12/09/22 05:26 Laboratory: Laboratory Results - last 24 hr 12/08/22 17:05: WBC 6.6, RBC 5.11, Hgb 16.0, Hct 45.9, MCV 89.8, MCH 31.3, MCHC 34.9, RDW Std Deviation 37.2, RDW Coeff of Billy 11.3 L, Plt Count 175, MPV 10.8, Immature Gran % (Auto) 0.500, Neut % (Auto) 68.1, Lymph % (Auto) 21.1, [place] % (Auto) 8.9, Eos % (Auto) 0.6, Baso % (Auto) 0.8, Absolute Neuts (auto) 4.5, Absolute Lymphs (auto) 1.38, Nucleated RBC % 0, Sodium 136, Potassium 4.4, Chloride 102, Carbon Dioxide 25.0, Anion Gap 9, BUN 20 H, Creatinine 1.20, Estim Creat Clear Calc 68.85, Est GFR (MDRD) Af Amer 79, Est GFR (MDRD) Non-Af 65, BUN/Creatinine Ratio 16.7, Glucose 260 H, Lactic Acid 2.5 H*, Calcium 10.0, Total Bilirubin 1.30 H, AST 20, ALT 29, Alkaline Phosphatase 54, Total Protein 7.9, Albumin 4.3, Globulin 3.6, Albumin/Globulin Ratio 1.2, Lipase 76 H 12/08/22 17:26: POC Glucose 275 H 12/08/22 18:35: Urine Color Yellow, Urine Clarity Sl. Cloudy, Urine pH 7.0, Ur Specific [place] 1.010, Urine Protein 30 H, Urine Glucose (UA) 1000 H, Urine Ketones 50 H, Urine Occult Blood 10 H, Urine Nitrite Negative, Urine Bilirubin Negative, Urine Urobilinogen Normal, Ur Leukocyte Esterase Negative, Urine RBC 0SEEN, Urine WBC 0 SEEN, Ur Squamous Epith Cells 0 SEEN, Urine Bacteria 0 SEEN, Urine Mucus 0 SEEN 12/08/22 21:20: Lactic Acid 1.8 12/08/22 22:25: Procalcitonin < 0.04 12/08/22 23:30: Troponin I High Sens 28 12/08/22 23:42: POC Glucose 271 H 12/09/22 05:26: WBC 7.8, RBC 4.92, Hgb 15.4, Hct 44.4, MCV 90.2, MCH 31.3, MCHC 34.7, RDW Std Deviation 38.1, RDW Coeff of Billy 11.6, Plt Count 181, MPV 11.1, Immature Gran % (Auto) 0.500, Neut % (Auto) 78.8 H, Lymph % (Auto) 12.7 L, [place] % (Auto) 7.7, Eos % (Auto) 0.0, Baso % (Auto) 0.3, Absolute Neuts (auto) 6.1, Absolute Lymphs (auto) 0.99, Nucleated RBC % 0, Sodium 137, Potassium 3.8, Chloride 105, Carbon Dioxide 24.0, Anion Gap 8, BUN 18, Creatinine 1.02, Estim Creat Clear Calc 81.00, Est GFR (MDRD) Af Amer 95, Est GFR (MDRD) Non-Af 79, BUN/Creatinine Ratio 17.6, Glucose 248 H, Calcium 9.1, Total Bilirubin 1.00, AST14 L, ALT 24, Alkaline Phosphatase 48, Total Protein 7.3, Albumin 3.9, Globulin 3.4, Albumin/Globulin Ratio 1.1 12/09/22 06:13: POC Glucose 260 H 12/09/22 11:51: POC Glucose 287 H Radiography Diagnostic Testing: Radiology Impression Abdomen/Pelvis CT 12/08/22 16:59 IMPRESSION: No acute abnormality. Small hiatal hernia. Electronically Signed: Cristopher Thomas MD at 19:29 EDT , D/C Instructions Discharge Diet: Light diet - advance as tolerated Meaningful Use Info Meaningful Use Diagnoses (Choose all that apply): None applicable Discharge Plan Admission Admit Date/Time: 12/08/22 22:05 Primary Reason for Your Visit: Nausea, vomiting Attending Provider: Mariela Narvaez Primary Care Provider: Zayra Napier Consulting Providers: Kate Carrion Instructions Patient Instructions: Abdominal Pain, Controlling High Blood Pressure, ED Vomiting (Adult) Additional Instructions / Restrictions: DISCHARGE INSTRUCTIONS PLEASE READ *Please take this with you to your next doctors appointment* -You had Lewis sent to the [facility] pharmacy to take as needed for nausea -Would recommend following with your primary care physician as you did have elevated blood pressure and blood sugar, this may improve once you are no longerill but recommend following closely in the event a need to be started on blood pressure medication or have other lifestyle changes recommended -Additionally you did have elevated blood sugar and will be important to get this controlled, would recommend you resume metformin and have this titrated/further adjusted on and outpatient basis by your primary care physician. New prescription was sent in to the [facility] pharmacy in [place]. If you begin taking this and have any further diarrhea or abdominal upset pleasediscontinue this medication call your primary care physician for further instructions -Please call your primary care provider's office upon discharge to schedule a hospital follow up within 1 week. -For any concerning signs or symptoms please call 911 or proceed to the nearest emergency department Discharge Orders/Prescriptions Prescriptions: New metformin 500 mg tablet 500 mg PO BID 30 Days Qty: 60 0RF Continued ondansetron 4 MG tablet 4 mg PO Q8H PRN PRN (Reason: Nausea) 5 Days Qty: 10 0RF Discontinued metformin 500 MG tablet 500 mg PO BIDCM Patient Comments: Diabetes pantoprazole 40 MG tablet 40 mg PO DAILY promethazine 25 MG tablet 25 mg PO Q6H PRN PRN (Reason: Nausea) Qty: 10 0RF dicyclomine 10 MG capsule 20 mg PO TIDAC Qty: 20 0RF magnesium citrate 300 ML solution 300 ml PO X1 Qty: 300 0RF Rx Instructions: azithromycin [Zithromax] 500 MG tablet 500 mg PO DAILY Qty: 3 0RF Referrals / Follow Up: Zayra Napier DO [Primary Care Provider] - Within 1 Week Disposition Disposition (needs filled in before D/C Order can be placed): Home, Self Care Charges/Coding Visit Charges Inpatient E&M: 72650 Disch Hosp >30min 12/09/22 1444 <Electronically signed by Mariela Narvaez MD> Cosigner Signature (if applicable): CC: Dr. Zayra Napier DO; Dr. Mariela Narvaez MD~ Signed [facility] Work Phone: 1(805) 135-205607-02-2023 Discharge summary Author Mariela Narvaez [facility] December 09, 2022 2:41pm Note Date/Time December 09, 2022 2:32p m [facility] Medical Records Department [address] [place] [address] Instructions for Home/Discharge Instructions 12/09/22 1432 MR#: [id number] Acct: [id number] Name: MORENO VILLEGAS Rep #:[id number] : 1960 62 From: Mariela Narvaez MD PCP: Dr. Zayra Napier, DO Status:ADM TIA Discharge Instructions Diet Discharge Diet: Light diet - advance as tolerated Activity Discharge Activity: Return to Normal Activity Follow Up Care Test Results: Test results from this visit will be discussed in further detail at your follow- up appointment, if applicable. Discharge Plan Admission Admit Date/Time: 12/08/22 22:05 Primary Reason for Your Visit: Nausea, vomiting Attending Provider: Mariela Narvaez Primary Care Provider: Zayra Napier Consulting Providers: Kate Carrion Instructions Patient Instructions: Abdominal Pain, Controlling High Blood Pressure, ED Vomiting (Adult) Additional Instructions / Restrictions: DISCHARGE INSTRUCTIONS PLEASE READ *Please take this with you to your next doctors appointment* -You had Zofran sent to the [facility] pharmacy to take as needed for nausea -Would recommend following with your primary care physician as you did have elevated blood pressure and blood sugar, this may improve once you are no longerill but recommend following closely in the event a need to be started on blood pressure medication or have other lifestyle changes recommended -Additionally you did have elevated blood sugar and will be important to get this controlled, would recommend you resume metformin and have this titrated/further adjusted on and outpatient basis by your primary care physician. New prescription was sent in to the [facility] pharmacy in [place]. If you begin taking this and have any further diarrhea or abdominal upset pleasediscontinue this medication call your primary care physician for further instructions -Please call your primary care provider's office upon discharge to schedule a hospital follow up within 1 week. -For any concerning signs or symptoms please call 911 or proceed to the nearest emergency department Discharge Orders/Prescriptions Prescriptions: New metformin 500 mg tablet 500 mg PO BID 30 Days Qty: 60 0RF Continued ondansetron 4 MG tablet 4 mg PO Q8H PRN PRN (Reason: Nausea) 5 Days Qty: 10 0RF Discontinued metformin 500 MG tablet 500 mg PO BIDCM Patient Comments: Diabetes pantoprazole 40 MG tablet 40 mg PO DAILY promethazine 25 MG tablet 25 mg PO Q6H PRN PRN (Reason: Nausea) Qty: 10 0RF dicyclomine 10 MG capsule 20 mg PO TIDAC Qty: 20 0RF magnesium citrate 300 ML solution 300 ml PO X1 Qty: 300 0RF Rx Instructions: azithromycin [Zithromax] 500 MG tablet 500 mg PO DAILY Qty: 3 0RF Referrals / Follow Up: Zayra Napier DO [Primary Care Provider] - Within 1 Week Disposition Disposition (needs filled in before D/C Order can be placed): Home, Self Care 12/09/22 1441<Electronically signed by Mariela Narvaez MD>Mariela Narvaez MD CC: Dr. Kate Carrion MD; Dr. Zayra Napier DO ~ Signed [facility] [facility] Work Phone: [phone] 398-976907-02-2023 History and physical note Author [facility] December 08, 2022 11:10pm Note Date/Time December 08, 2022 10:07 pm [facility] Medical Records Department [address] [place] [address] H&P Exam - Hospitalist 12/08/222202 MR#: [id number] Acct: [id number] Name: MORENO VILLEGAS Rep #:[id number] : 1960 62 From: Kate Carrion MD PCP: Dr. Zayra Napier DO Status:ADM TIA Location: [place] [address] HPI - General General Date of Admission: 12/08/22 Date of Service: 12/08/22 Chief Complaint: Intractable N/V/D, abdominal pain. HPI Narrative The patient is a 62 y/o M w/ PMHx: GERD, Former tobacco use, Obesity, Diabetes mellitus type II, HTN, JUANA who presents to the [facility] ED on 12/08/22 with history of 3 days of persistent abdominal discomfort, nausea, emesis and loose stools with more severe diarrhea approximately 3 days ago with improvement of his loose stools however he then developed significant vomiting and on day of presentationhad worsening lower abdominal discomfort with pain so severe he reports being atwork and becoming very diaphoretic prompting ED evaluation. He notes he had a soft bowel movement today and it appears to be normalizing. He does still have abdominal discomfort primarily epigastric and proximal to his umbilicus described as aching, worse with palpation. He does state he has had hiccups today frequently. Work-up in the ED included T95.7 Temporally with most recent 98.2 orally, heart rate 82, BP 185/94, respiratory rate 22, 98% on room air however most recent assessment BP 184/95, respiratory rate 16, 99% on 1 L nasal cannula, CBC with WC 6.6, hemoglobin 16, platelet 175 without marked shift, CMP with BUN/creatinine 20/1.20, anion gap 9, glucose 260, initial lactic acid 2.5 and repeat following ED interventions and hydration 1.8, T. bili 1.30 otherwise hepatic profile unremarkable, lipase 76, urinalysis with specific gravity 1.010,protein 30, glucose 1000, ketone 50, occult blood 10 with no obvious evidence ofUTI, CT abdomen and pelvis with no acute intra-abdominal findings and incidentally noted small hiatal hernia. In the ED patient ministered 2 L normalsaline, hydralazine 10 mg IV x1, morphine 4 mg IV x1, Zofran 4 mg IV x2, Phenergan 12.5 mg IM x1. [facility] Medical History (Updated 12/08/22 @ 22:[address] Kate Carrion MD) Former tobacco use GERD (gastroesophageal reflux disease) Hypertension Obesity JUANA (obstructive sleep apnea) Type 2 diabetes mellitus Home Medications metformin 500 mg tablet 500 mg PO BIDCM 09/28/15 [History Last Taken 11/13/15] pantoprazole 40 mg tablet,delayed release 40 mg PO DAILY 11/22/15 [History Last Taken Unknown] promethazine 25 mg tablet 25 mg PO Q6H PRN PRN Nausea ##10 02/08/16 [Rx Last Taken Unknown] azithromycin 500 mg tablet (Zithromax) 500 mg PO DAILY #3 tabs 02/15/16 [Rx Last Taken Unknown] dicyclomine 10 mg capsule 20 mg (2 x 10 mg) PO TIDAC ##20 02/15/16 [Rx Last Taken Unknown] magnesium citrate 300 ml PO X1 #300 mL 02/15/16 [Rx Last Taken Unknown] ondansetron 4 mg disintegrating tablet 4 mg PO Q8H PRN PRN Nausea #10 tabs 02/15/16 [Rx Last Taken Unknown] dicyclomine 20 mg tablet 20 mg PO TID #20 tabs 12/08/22 [Rx Last Taken Unknown] ondansetron 4 mg disintegrating tablet 4 mg PO Q8H PRN PRN Nausea #14 tabs 12/08/22 [Rx Last Taken Unknown] Allergy/AdvReac Type Severity Reaction Status Date / Time No Known Allergies Allergy Verified 12/08/22 16:45 Family History (Updated 12/08/22 @ 22:[address] Kate Carrion MD) Mother Diabetes Heart disease Cancer Father No problems noted. Surgical History (Updated 12/08/22 @ 22:[address] Kate Carrion MD) History of cholecystectomy History of surgery on lower extremity Social History (Updated 12/08/22 @ 23:[address] Kate Carrion MD) household members: other details: Notes his son lives with him. Smoking Status: Former smoker alcohol intake: never substance use type: does not use ROS ROS Narrative Admission Review of Systems: CONSTITUTIONAL: No weight loss, fever, chills, + weakness or fatigue. HEENT: Eyes: No visual loss, blurred vision, double vision or yellow sclerae. Ears, Nose, Throat: No hearing loss, sneezing, congestion, runny nose or sore throat. SKIN: No rash or itching, lesions, wounds. CARDIOVASCULAR: No chest pain, chest pressure or chest discomfort, palpitations,edema, orthopnea, syncopal events. RESPIRATORY: No shortness of breath, cough or sputum, wheezing, hemoptysis. GASTROINTESTINAL: + anorexia, nausea, vomiting, diarrhea, abdominal pain, hiccups intermittently, No melena, BRBPR. GENITOURINARY: No dysuria, frequency, urgency or retention. NEUROLOGICAL: No headache, dizziness, syncope, paralysis, ataxia, numbness or tingling in the extremities, focal weakness, change in bowel or bladder control,seizure. MUSCULOSKELETAL: No muscle, back pain, joint pain or stiffness. HEMATOLOGIC: No anemia, bleeding or bruising. LYMPHATICS: No enlarged nodes. No history of splenectomy. PSYCHIATRIC: No history of depression or anxiety. ENDOCRINOLOGIC: + reports of sweating. No cold or heat intolerance. No polyuria or polydipsia. ALLERGIES: No history of asthma, hives, eczema or rhinitis. Vital Signs Vital Signs Vital Signs: 12/08/22 16:45 12/08/22 18:07 12/08/22 18:34 Temperature 95.7 F L 98.3 F 98.8 F Temperature Source Temporal Oral Oral Pulse Rate 82 87 87 Respiratory Rate 22 H 12 12 Blood Pressure 185/94 H 134/111 H 192/104 H Blood Pressure Mean 124 118 133 Pulse Ox 98 98 93 Oxygen Delivery Method Room Air Nasal Cannula Nasal Cannula Oxygen Flow Rate (L/min) 2 2 12/08/22 20:00 Temperature 98.2 F Temperature Source Oral Pulse Rate 94 Respiratory Rate 16 Blood Pressure 184/95 H Blood Pressure Mean 124 Pulse Ox 99 Oxygen Delivery Method Nasal Cannula Oxygen Flow Rate (L/min) 1 Weight Weight: 276 lb 3.827 oz Body Mass Index (BMI) 38.5 Physical Exam Narrative Physical Examination: General: Awake, alert, oriented x 3 and cooperative, seated upright in ED chair,fatigued, ill appearing. Skin: Mildly diaphoretic, mildly flushed color, normal turgor, no icterus, no cyanosis. HEENT: AT/NC, EOMI, PERRLA, dry MM, no carotid bruits or JVD noted. Lungs: CTA bilaterally, moderate effort, mild decrease BL bases, no rales, ronchi or wheezing. Heart: Regular rate and rhythm; no gallop, rub audible. Abdomen: Soft, obese, mild discomfort to palpation epigastric and above the umbilicus region, no rebound or guarding, no obvious marked distention, hyperactive BS, no HSM although habitus does make evaluation difficult. Extremities: No cyanosis, clubbing, or edema. Neurological: Patient awake, alert, oriented as noted, cognitive function intact; pupils equally reactive to light and accommodation, cranial nerves II-XII grossly normal, moving all 4 extremities, no focal deficits, strength moderately globally decreased secondary to acute complaints. Psychiatric: Affect appears fatigued, ill appearing, no acute evidence of depressive or anxiety feelings. Results Lab / Micro Data 12/08/22 17:05 12/08/22 17:05 Labs: Laboratory Results - last 24 hr 12/08/22 17:05: WBC 6.6, RBC 5.11, Hgb 16.0, Hct 45.9, MCV 89.8, MCH 31.3, MCHC 34.9, RDW Std Deviation 37.2, RDW Coeff of Billy 11.3 L, Plt Count 175, MPV 10.8, Immature Gran % (Auto) 0.500, Neut % (Auto) 68.1, Lymph % (Auto) 21.1, [place] % (Auto) 8.9, Eos % (Auto) 0.6, Baso % (Auto) 0.8, Absolute Neuts (auto) 4.5, Absolute Lymphs (auto) 1.38, Nucleated RBC % 0, Sodium 136, Potassium 4.4, Chloride 102, Carbon Dioxide 25.0, Anion Gap 9, BUN 20 H, Creatinine 1.20, EstimCreat Clear Calc 68.85, Est GFR (MDRD) Af Amer 79, Est GFR (MDRD) Non-Af 65, BUN/Creatinine Ratio 16.7, Glucose 260 H, Lactic Acid 2.5 H*, Calcium 10.0, Total Bilirubin 1.30 H, AST 20, ALT 29, Alkaline Phosphatase 54, Total Protein 7.9, Albumin 4.3, Globulin 3.6, Albumin/Globulin Ratio 1.2, Lipase 76 H 12/08/22 17:26: POC Glucose 275 H 12/08/22 18:35: Urine Color Yellow, Urine Clarity Sl. Cloudy, Urine pH 7.0, Ur Specific [place] 1.010, Urine Protein 30 H, Urine Glucose (UA) 1000 H, Urine Ketones 50 H, Urine Occult Blood 10 H, Urine Nitrite Negative, Urine Bilirubin Negative, Urine Urobilinogen Normal, Ur Leukocyte Esterase Negative, Urine RBC 0SEEN, Urine WBC 0 SEEN, Ur Squamous Epith Cells 0 SEEN, Urine Bacteria 0 SEEN, Urine Mucus 0 SEEN 12/08/22 21:20: Lactic Acid 1.8 Radiology Impression Abdomen/Pelvis CT 12/08/22 16:59 IMPRESSION: No acute abnormality. Small hiatal hernia. Electronically Signed: Cristopher Thomas MD at 19:29 EDT , Assessment & Plan Assessment/Plan (1) Nausea & vomiting: PLAN: Plan The patient is a 62 y/o M w/ PMHx: GERD, Former tobacco use, Obesity, Diabetes mellitus type II, HTN, JUANA who presents to the [facility] ED on 12/08/22 with history of 3 days of persistent abdominal discomfort, nausea, emesis and loose stools with more severe diarrhea approximately 3 days ago with improvement of his loose stools however he then developed significant vomiting and on day of presentationhad worsening lower abdominal discomfort with pain so severe he reports being atwork and becoming very diaphoretic prompting ED evaluation. #1. Abdominal pain, Nausea, Emesis, Diarrhea, Intractable, Unclear etiology, possibly Acute Gastroenteritis with Acute Lactic Acidosis secondary to associated dehydration: CT abdomen and pelvis with no acute intra-abdominal findings and incidentally noted small hiatal hernia. Will admit to [facility], will place on IV PPI, allow clears if improving and ADAT, PRN antiemetics, PRN pain regimen, continue aggressive hydration, will obtain c diff, stool cx, O+P with repeat AM CBC. If recurrent hiccups will have thorazine as needed. Will request troponin x 1. #2. Hypertension: History noted previously, from most recent home medication list attempted to be pulled from outpatient not on regimen, clarifying, as needed IV hydralazine in interim. #3. Diabetes mellitus type II: Hold oral home regimen, given acute presentationinitiating on clears to start with advance diet as tolerated, maintain until oral intake improved on q 6h accu checks w/ ISS. #4. Obesity: Weight loss and lifestyle changes encouraged. #5. Former tobacco use: Encourage continued tobacco cessation. #6. GERD: We will maintain on IV PPI until oral intake assured/improved. #7. JUANA: Given recent intractable N/V, will hold q HS CPAP for now and may use supplemental oxygen as needed. #8. DVT prophylaxis: Low risk for current presentation, encourage ambulation. #9. CODE STATUS: Full Code. Patient does not have HCPOA or LW in place. Admission Evaluation Time spent evaluating chart, patient history, patient evaluation, care planning and discussion with specialists: 55 minutes. Charges/Coding Visit Charges Inpatient E&M: 15871 Init Hosp L2 12/08/222308 <Electronically signed by Kate Carrion MD> Cosigner Signature (if applicable): CC: Dr. Kate Carrion MD; Dr. Zayra Napier, ~ Signed ADDENDUM by Dr. Kate Carrion MD on 12/08/22 at 2310 Addendum Also of note, [place] and [place] water. His sonhas not been ill. 12/08/222309<Electronically signed by Kate Carrion MD> Cosigner Signature (if applicable): cc: Dr. Kate Carrion MD; Dr. Zayra Napier DO ~* Signed [facility] Work Phone: [phone]) 737-609507-02-2023 Discharge summary Author Rosanna Abraham [facility] December 08, 2022 10:34pm Note Date/Time December 08, 2022 5:20p m [facility] Medical Records Department [address] [place] [address] Emergency Department Summary 12/08/22 MR#: [id number] Acct: [id number] Name: MORENO VILLEGAS Rep #:[id number] : 1960 62 From: Rosanna Abraham MD PCP: Dr. Zayra Napier, DO Status:ADM TIA Location: [address] <MARIS Weber - Last Filed: 12/08/22 21:07> History of Present Illness Chief Complaint: Nausea/Vomiting Narrative Narrative: Patient is a 62-year-old male with history of type 2 diabetes who presents to the emergency department with 3 days of abdominal pain, nausea, vomiting, diarrhea. Patient states he had severe diarrhea 3 days ago, he felt better on the second day, however then he developed severe vomiting, today he went to work, started having lower abdominal pain and continued to have vomiting. Patient states that he became very sweaty, the pain was severe and is here for evaluation. [facility] <MARIS Weber - Last Filed: 12/08/22 21:07> [facility] Medical History (Updated 12/08/22 @ 21:05 by MARIS Weber) Type 2 diabetes mellitus Home Medications metformin 500 mg tablet 500 mg PO BIDCM 09/28/15 [History Last Taken 11/13/15] pantoprazole 40 mg tablet,delayed release 40 mg PO DAILY 11/22/15 [History Last Taken Unknown] promethazine 25 mg tablet 25 mg PO Q6H PRN PRN Nausea ##10 02/08/16 [Rx Last Taken Unknown] azithromycin 500 mg tablet (Zithromax) 500 mg PO DAILY #3 tabs 02/15/16 [Rx Last Taken Unknown] dicyclomine 10 mg capsule 20 mg (2 x 10 mg) PO TIDAC ##20 02/15/16 [Rx Last Taken Unknown] magnesium citrate 300 ml PO X1 #300 mL 02/15/16 [Rx Last Taken Unknown] ondansetron 4 mg disintegrating tablet 4 mg PO Q8H PRN PRN Nausea #10 tabs 02/15/16 [Rx Last Taken Unknown] dicyclomine 20 mg tablet 20 mg PO TID #20 tabs 12/08/22 [Rx Last Taken Unknown] ondansetron 4 mg disintegrating tablet 4 mg PO Q8H PRN PRN Nausea #14 tabs 12/08/22 [Rx Last Taken Unknown] Allergy/AdvReac Type Severity Reaction Status Date / Time No Known Allergies Allergy Verified 12/08/22 16:45 Surgical History (Updated 12/08/22 @ 17:11 by Waldemar Lai) History of cholecystectomy Social History Smoking Status: Former smoker ROS <MARIS Weber - Last Filed: 12/08/22 21:07> ROS ED ROS Narrative Constitutional: Negative for fever, weight loss, weakness. Positive for chills Eyes: Negative for vision loss, vision change, double vision ENT: Negative for any sore throat, ear pain, congestion Cardiovascular: Negative for any chest pain, tightness, palpitations Respiratory: Negative for any cough, sputum production, hemoptysis, dyspnea, dyspnea on exertion, orthopnea Gastrointestinal: Negative for any constipation, blood in stool, blood in vomit. Positive for abdominal pain, nausea, vomiting, diarrhea : Negative for any urinary frequency, dysuria, retention, blood in urine Muscle skeletal: Negative for any muscle joint pain, stiffness, myalgias, arthralgias, neck pain, back pain Neurological: Negative for any headache, syncope, numbness or tingling, dizziness Skin: Negative for any rashes, lumps, itching, abrasions, lacerations Psychiatric: Negative for any depression, anxiety, stress, suicidal ideation, homicidal ideation Hematologic: Negative for any easy bruising, excessive bruising, easy bleeding Allergies: Negative for any eczema, hives, rash EXAM <MARIS Weber - Last Filed: 12/08/22 21:07> Physical Exam Narrative Exam Narrative: Vital signs reviewed. Patient on initial evaluation does appear to be in mild distress secondary to pain to his abdomen. Patient is diaphoretic. He is alert and orient x4. HEET: Head normocephalic atraumatic, TMs clear bilaterally. Posterior pharynx is clear, moist mucous membranes. Nares clear bilaterally. Neck: Supple with no lymphadenopathy or tenderness. No signs of meningismus, negative jolt sign. Cardiac: Regular rate and rhythm no murmurs gallops or rubs, equal peripheral pulses bilaterally. Respiratory: Lungs clear to auscultation bilaterally. No chest tenderness. Abdomen: Soft, nondistended. No abdominal bruit or pulsatile masses. No hepatosplenomegaly. Tenderness to the periumbilical area as well as the left lower quadrant. Negative for any peritoneal signs. Extremities: No peripheral edema, no signs of gross trauma or deformity. Activefull range of motion of all extremities. Neuro: Cranial nerves II through XII intact, no focal neurological deficits. Skin: Clean dry and intact with no rash, purpura, petechiae, vesicles or pustules. Backs/flank: No CVA tenderness, no midline spinal tenderness, no deformity. Psych: Normal mood and affect. No SI, HI or acute psychosis. Const Vital Signs: 12/08/22 16:45 12/08/22 18:07 12/08/22 18:34 Temperature 95.7 F L 98.3 F 98.8 F Temperature Source Temporal Oral Oral Pulse Rate 82 87 87 Respiratory Rate 22 H 12 12 Blood Pressure 185/94 H 134/111 H 192/104 H Blood Pressure Mean 124 118 133 Pulse Ox 98 98 93 Oxygen Delivery Method Room Air Nasal Cannula Nasal Cannula Oxygen Flow Rate (L/min) 2 2 12/08/22 20:00 Temperature 98.2 F Temperature Source Oral Pulse Rate 94 Respiratory Rate 16 Blood Pressure 184/95 H Blood Pressure Mean 124 Pulse Ox 99 Oxygen Delivery Method Nasal Cannula Oxygen Flow Rate (L/min) 1 Positive well nourished and well developed General Appearance ED: well developed <Dr. Rosanna Abraham MD - Last Filed: 12/08/22 21:54> Physical Exam Const Vital Signs: 12/08/22 16:45 12/08/22 18:07 12/08/22 18:34 Temperature 95.7 F L 98.3 F 98.8 F Temperature Source Temporal Oral Oral Pulse Rate 82 87 87 Respiratory Rate 22 H 12 12 Blood Pressure 185/94 H 134/111 H 192/104 H Blood Pressure Mean 124 118 133 Pulse Ox 98 98 93 Oxygen Delivery Method Room Air Nasal Cannula Nasal Cannula Oxygen Flow Rate (L/min) 2 2 12/08/22 20:00 Temperature 98.2 F Temperature Source Oral Pulse Rate 94 Respiratory Rate 16 Blood Pressure 184/95 H Blood Pressure Mean 124 Pulse Ox 99 Oxygen Delivery Method Nasal Cannula Oxygen Flow Rate (L/min) 1 [facility] <MARIS Weber - Last Filed: 12/08/22 21:07> [facility] Lab Data Labs: Laboratory Results - last 24 hr 12/08/22 12/08/22 12/08/22 17:05 17:26 18:35 WBC 6.6 RBC 5.11 Hgb 16.0 Hct 45.9 MCV 89.8 MCH 31.3 MCHC 34.9 RDW Std Deviation 37.2 RDW Coeff of Billy 11.3 L Plt Count 175 MPV 10.8 Immature Gran % (Auto) 0.500 Neut % (Auto) 68.1 Lymph % (Auto) 21.1 [place] % (Auto) 8.9 Eos % (Auto) 0.6 Baso % (Auto) 0.8 Absolute Neuts (auto) 4.5 Absolute Lymphs (auto) 1.38 Nucleated RBC % 0 Sodium 136 Potassium 4.4 Chloride 102 Carbon Dioxide 25.0 Anion Gap 9 BUN 20 H Creatinine 1.20 Estim Creat Clear Calc 68.85 Est GFR (MDRD) Af Amer 79 Est GFR (MDRD) Non-Af 65 BUN/Creatinine Ratio 16.7 Glucose 260 H Lactic Acid 2.5 H* Calcium 10.0 Total Bilirubin 1.30 H AST 20 ALT 29 Alkaline Phosphatase 54 Total Protein 7.9 Albumin 4.3 Globulin 3.6 Albumin/Globulin Ratio 1.2 Lipase 76 H Urine Color Yellow Urine Clarity Sl. Cloudy Urine pH 7.0 Ur Specific [place] 1.010 Urine Protein 30 H Urine Glucose (UA) 1000 H Urine Ketones 50 H Urine Occult Blood 10 H Urine Nitrite Negative Urine Bilirubin Negative Urine Urobilinogen Normal Ur Leukocyte Esterase Negative Urine RBC 0 SEEN Urine WBC 0 SEEN Ur Squamous Epith Cells 0 SEEN Urine Bacteria 0 SEEN Urine Mucus 0 SEEN POC Glucose 275 H 12/08/22 21:20 WBC RBC Hgb Hct MCV MCH MCHC RDW Std Deviation RDW Coeff of Billy Plt Count MPV Immature Gran % (Auto) Neut % (Auto) Lymph % (Auto) [place] % (Auto) Eos % (Auto) Baso % (Auto) Absolute Neuts (auto) Absolute Lymphs (auto) Nucleated RBC % Sodium Potassium Chloride Carbon Dioxide Anion Gap BUN Creatinine Estim Creat Clear Calc Est GFR (MDRD) Af Amer Est GFR (MDRD) Non-Af BUN/Creatinine Ratio Glucose Lactic Acid 1.8 Calcium Total Bilirubin AST ALT Alkaline Phosphatase Total Protein Albumin Globulin Albumin/Globulin Ratio Lipase Urine Color Urine Clarity Urine pH Ur Specific [place] Urine Protein Urine Glucose (UA) Urine Ketones Urine Occult Blood Urine Nitrite Urine Bilirubin Urine Urobilinogen Ur Leukocyte Esterase Urine RBC Urine WBC Ur Squamous Epith Cells Urine Bacteria Urine Mucus POC Glucose Radiography Diagnostic Testing: Clinical Impression(s) from Imaging Studies Abdomen/Pelvis CT 12/08/22 16:59 IMPRESSION: No acute abnormality. Small hiatal hernia. Electronically Signed: Cristopher Thomas MD at 19:29 EDT , Treatment and Re-Evaluation :: Patient appears to be in mild distress secondary to abdominal pain. Patient presents to the emerged from abdominal pain, nausea, vomiting of diarrhea for last 3 days. Patient will have a full abdominal work-up. This to include laboratory values acute lactic acid. Patient also received a CT scan of the abdomen pelvis concerning for any diverticulitis, bowel obstruction. Patient laboratory values show normal CBC, patient's chemistry showed a BUN of 20, creatinine unremarkable. Glucose 260, patient's lactic acid was elevated 2.5. Total bilirubin 1.3. Lipase was 76. Patient did receive a CT scan of theabdomen pelvis, this showed no acute abnormality, small hiatal hernia. Patient's urinalysis shows no infection. On reevaluation, the patient still hadnausea. Patient was given morphine, Zofran, Phenergan. On reassessment, the patient's blood pressure is improved. Patient states he still feels nauseated. Patient was redosed with IV Zofran, 1 more liter normal saline IV. On reassessment, the patient was feeling better, the patient is able to pass a p.o. challenge. At this time, there is no evidence suspect any appendicitis, bowel obstruction, diverticulitis, pancreatitis. Patient be diagnosed with gastroenteritis, we placed on Bentyl, Zofran. He is instructed to maintain hydration, and follow- up with his PCP regarding his blood pressure today. Patient is happy with the plan of care, all questions given. Patient stable fordischarge <Dr. Rosanna Abraham MD - Last Filed: 12/08/22 21:54> [facility] Lab Data Labs: Laboratory Results - last 24 hr 12/08/22 12/08/22 12/08/22 17:05 17:26 18:35 WBC 6.6 RBC 5.11 Hgb 16.0 Hct 45.9 MCV 89.8 MCH 31.3 MCHC 34.9 RDW Std Deviation 37.2 RDW Coeff of Billy 11.3 L Plt Count 175 MPV 10.8 Immature Gran % (Auto) 0.500 Neut % (Auto) 68.1 Lymph % (Auto) 21.1 [place] % (Auto) 8.9 Eos % (Auto) 0.6 Baso % (Auto) 0.8 Absolute Neuts (auto) 4.5 Absolute Lymphs (auto) 1.38 Nucleated RBC % 0 Sodium 136 Potassium 4.4 Chloride 102 Carbon Dioxide 25.0 Anion Gap 9 BUN 20 H Creatinine 1.20 Estim Creat Clear Calc 68.85 Est GFR (MDRD) Af Amer 79 Est GFR (MDRD) Non-Af 65 BUN/Creatinine Ratio 16.7 Glucose 260 H Lactic Acid 2.5 H* Calcium 10.0 Total Bilirubin 1.30 H AST 20 ALT 29 Alkaline Phosphatase 54 Total Protein 7.9 Albumin 4.3 Globulin 3.6 Albumin/Globulin Ratio 1.2 Lipase 76 H Urine Color Yellow Urine Clarity Sl. Cloudy Urine pH 7.0 Ur Specific [place] 1.010 Urine Protein 30 H Urine Glucose (UA) 1000 H Urine Ketones 50 H Urine Occult Blood 10 H Urine Nitrite Negative Urine Bilirubin Negative Urine Urobilinogen Normal Ur Leukocyte Esterase Negative Urine RBC 0 SEEN Urine WBC 0 SEEN Ur Squamous Epith Cells 0 SEEN Urine Bacteria 0 SEEN Urine Mucus 0 SEEN POC Glucose 275 H 12/08/22 21:20 WBC RBC Hgb Hct MCV MCH MCHC RDW Std Deviation RDW Coeff of Billy Plt Count MPV Immature Gran % (Auto) Neut % (Auto) Lymph % (Auto) [place] % (Auto) Eos % (Auto) Baso % (Auto) Absolute Neuts (auto) Absolute Lymphs (auto) Nucleated RBC % Sodium Potassium Chloride Carbon Dioxide Anion Gap BUN Creatinine Estim Creat Clear Calc Est GFR (MDRD) Af Amer Est GFR (MDRD) Non-Af BUN/Creatinine Ratio Glucose Lactic Acid 1.8 Calcium Total Bilirubin AST ALT Alkaline Phosphatase Total Protein Albumin Globulin Albumin/Globulin Ratio Lipase Urine Color Urine Clarity Urine pH Ur Specific [place] Urine Protein Urine Glucose (UA) Urine Ketones Urine Occult Blood Urine Nitrite Urine Bilirubin Urine Urobilinogen Ur Leukocyte Esterase Urine RBC Urine WBC Ur Squamous Epith Cells Urine Bacteria Urine Mucus POC Glucose Radiography Diagnostic Testing: Clinical Impression(s) from Imaging Studies Abdomen/Pelvis CT 12/08/22 16:59 IMPRESSION: No acute abnormality. Small hiatal hernia. Electronically Signed: Cristopher Thomas MD at 19:29 EDT , Treatment and Re-Evaluation :: Patient appears to be in mild distress secondary to abdominal pain. Patient presents to the emerged from abdominal pain, nausea, vomiting of diarrhea for last 3 days. Patient will have a full abdominal work-up. This to include laboratory values acute lactic acid. Patient also received a CT scan of the abdomen pelvis concerning for any diverticulitis, bowel obstruction. Patient laboratory values show normal CBC, patient's chemistry showed a BUN of 20, creatinine unremarkable. Glucose 260, patient's lactic acid was elevated 2.5. Total bilirubin 1.3. Lipase was 76. Patient did receive a CT scan of theabdomen pelvis, this showed no acute abnormality, small hiatal hernia. Patient's urinalysis shows no infection. On reevaluation, the patient still hadnausea. Patient was given morphine, Zofran, Phenergan. On reassessment, the patient's blood pressure is improved. Patient states he still feels nauseated. Patient was redosed with IV Zofran, 1 more liter normal saline IV. Patient seen and evaluated with YESICA. I personally interviewed and examined the patient. I was involved in all aspects of patient's orders, interpretation of results, and treatment. Patient presents with recent gastro symptoms. He has had recent nausea, vomiting, and diarrhea. He thought he is improved and went back to work today. He developed nausea and vomiting again and presents to the emergency room. He does complain of some lower abdominal cramping. No fever. Only prior abdominalsurgery was a cholecystectomy. Patient sitting upright in bed. He appears pale and diaphoretic. Head and neck examination unremarkable. Heart is regular rate and rhythm. Lung sounds are clear. Abdomen is soft, obese, minimal lower abdominal tenderness. No guarding or rebound. CBC was normal white count at 6.6 with hemoglobin of 16. LFTs are unremarkable. Creatinine is 1.2. Glucose is 260. Lactic acid is elevated at 2.5. Lipase is76. Urinalysis reveals no evidence of acute infection with 50 ketones. After being medicated with morphine and Zofran patient did develop some mild hypoxia associated with sedation. He was placed on nasal cannula for short time. Due to continued nausea he was given Phenergan. CT scan of the abdomen and pelvis with IV contrast reveals no acute findings. Again due to continued nausea he received Zofran and another liter of fluid. Repeat lactic acid is improved to 1.8. At this time patient sitting at the side of the bed. He continues to feel nauseated and has not been able to tolerate p.o. Having been given 3 rounds of nausea medication and still feeling quite nauseated I will speak with hospitalist regarding observation overnight. Patient was also noted to be quitehypertensive with systolic blood pressures in the 190 range. He was given a single dose of hydralazine which improved his blood pressure to the 160s for a time. He states his blood pressure normally runs on the high end of normal. This will need to be closely monitored as well. Discharge Plan Dx/Rx/DC Orders Clinical Impression: Nausea & vomiting, Abdominal pain, Hypertension Disposition Disposition: [facility] What to do if you have Problems For any increased pain, shortness of breath, bleeding, nausea or vomiting, chestpain, or any unexpected problems, contact your Primary Care Provider. Call [facility] ([phone]) or report to the closest Emergency Room. Call 911 if necessary. 12/08/222233 <Electronically signed by Rosanna Abraham MD> Cosigner Signature (if applicable): 12/08/222106 <Electronically signed by David POLLOCK> CC: Dr. Zayar Napier, DO ~ Signed [facility] Work Phone: [phone] 354-748807-01-2023 Discharge summary Author Rosanna Abraham [facility] December 08, 2022 10:34pm Note Date/Time December 08, 2022 5:20p m [facility] Medical Records Department [address] [place] [address] Emergency Department Summary 12/08/22 MR#: [id number] Acct: [id number] Name: MORENO VILLEGAS Rep #:[id number] : 1960 62 From: Rosanna Abraham MD PCP: Dr. Zayra Napier, DO Status:ADM TIA Location: [place] [address] HPI <MARIS Weber - Last Filed: 12/08/22 21:07> History of Present Illness Chief Complaint: Nausea/Vomiting Narrative Narrative: Patient is a 62-year-old male with history of type 2 diabetes who presents to the emergency department with 3 days of abdominal pain, nausea, vomiting, diarrhea. Patient states he had severe diarrhea 3 days ago, he felt better on the second day, however then he developed severe vomiting, today he went to work, started having lower abdominal pain and continued to have vomiting. Patient states that he became very sweaty, the pain was severe and is here for evaluation. [facility] <MARIS Weber - Last Filed: 12/08/22 21:07> [facility] Medical History (Updated 12/08/22 @ 21:05 by MARIS Weber) Type 2 diabetes mellitus Home Medications metformin 500 mg tablet 500 mg PO BIDCM 09/28/15 [History Last Taken 11/13/15] pantoprazole 40 mg tablet,delayed release 40 mg PO DAILY 11/22/15 [History Last Taken Unknown] promethazine 25 mg tablet 25 mg PO Q6H PRN PRN Nausea ##10 02/08/16 [Rx Last Taken Unknown] azithromycin 500 mg tablet (Zithromax) 500 mg PO DAILY #3 tabs 02/15/16 [Rx Last Taken Unknown] dicyclomine 10 mg capsule 20 mg (2 x 10 mg) PO TIDAC ##20 02/15/16 [Rx Last Taken Unknown] magnesium citrate 300 ml PO X1 #300 mL 02/15/16 [Rx Last Taken Unknown] ondansetron 4 mg disintegrating tablet 4 mg PO Q8H PRN PRN Nausea #10 tabs 02/15/16 [Rx Last Taken Unknown] dicyclomine 20 mg tablet 20 mg PO TID #20 tabs 12/08/22 [Rx Last Taken Unknown] ondansetron 4 mg disintegrating tablet 4 mg PO Q8H PRN PRN Nausea #14 tabs 12/08/22 [Rx Last Taken Unknown] Allergy/AdvReac Type Severity Reaction Status Date / Time No Known Allergies Allergy Verified 12/08/22 16:45 Surgical History (Updated 12/08/22 @ 17:11 by Waldemar Lai) History of cholecystectomy Social History Smoking Status: Former smoker ROS <MARIS Weber - Last Filed: 12/08/22 21:07> ROS ED ROS Narrative Constitutional: Negative for fever, weight loss, weakness. Positive for chills Eyes: Negative for vision loss, vision change, double vision ENT: Negative for any sore throat, ear pain, congestion Cardiovascular: Negative for any chest pain, tightness, palpitations Respiratory: Negative for any cough, sputum production, hemoptysis, dyspnea, dyspnea on exertion, orthopnea Gastrointestinal: Negative for any constipation, blood in stool, blood in vomit. Positive for abdominal pain, nausea, vomiting, diarrhea : Negative for any urinary frequency, dysuria, retention, blood in urine Muscle skeletal: Negative for any muscle joint pain, stiffness, myalgias, arthralgias, neck pain, back pain Neurological: Negative for any headache, syncope, numbness or tingling, dizziness Skin: Negative for any rashes, lumps, itching, abrasions, lacerations Psychiatric: Negative for any depression, anxiety, stress, suicidal ideation, homicidal ideation Hematologic: Negative for any easy bruising, excessive bruising, easy bleeding Allergies: Negative for any eczema, hives, rash EXAM <MARIS Weber - Last Filed: 12/08/22 21:07> Physical Exam Narrative Exam Narrative: Vital signs reviewed. Patient on initial evaluation does appear to be in mild distress secondary to pain to his abdomen. Patient is diaphoretic. He is alert and orient x4. HEET: Head normocephalic atraumatic, TMs clear bilaterally. Posterior pharynx is clear, moist mucous membranes. Nares clear bilaterally. Neck: Supple with no lymphadenopathy or tenderness. No signs of meningismus, negative jolt sign. Cardiac: Regular rate and rhythm no murmurs gallops or rubs, equal peripheral pulses bilaterally. Respiratory: Lungs clear to auscultation bilaterally. No chest tenderness. Abdomen: Soft, nondistended. No abdominal bruit or pulsatile masses. No hepatosplenomegaly. Tenderness to the periumbilical area as well as the left lower quadrant. Negative for any peritoneal signs. Extremities: No peripheral edema, no signs of gross trauma or deformity. Activefull range of motion of all extremities. Neuro: Cranial nerves II through XII intact, no focal neurological deficits. Skin: Clean dry and intact with no rash, purpura, petechiae, vesicles or pustules. Backs/flank: No CVA tenderness, no midline spinal tenderness, no deformity. Psych: Normal mood and affect. No SI, HI or acute psychosis. Const Vital Signs: 12/08/22 16:45 12/08/22 18:07 12/08/22 18:34 Temperature 95.7 F L 98.3 F 98.8 F Temperature Source Temporal Oral Oral Pulse Rate 82 87 87 Respiratory Rate 22 H 12 12 Blood Pressure 185/94 H 134/111 H 192/104 H Blood Pressure Mean 124 118 133 Pulse Ox 98 98 93 Oxygen Delivery Method Room Air Nasal Cannula Nasal Cannula Oxygen Flow Rate (L/min) 2 2 12/08/22 20:00 Temperature 98.2 F Temperature Source Oral Pulse Rate 94 Respiratory Rate 16 Blood Pressure 184/95 H Blood Pressure Mean 124 Pulse Ox 99 Oxygen Delivery Method Nasal Cannula Oxygen Flow Rate (L/min) 1 Positive well nourished and well developed General Appearance ED: well developed <Dr. Rosanna Abraham MD - Last Filed: 12/08/22 21:54> Physical Exam Const Vital Signs: 12/08/22 16:45 12/08/22 18:07 12/08/22 18:34 Temperature 95.7 F L 98.3 F 98.8 F Temperature Source Temporal Oral Oral Pulse Rate 82 87 87 Respiratory Rate 22 H 12 12 Blood Pressure 185/94 H 134/111 H 192/104 H Blood Pressure Mean 124 118 133 Pulse Ox 98 98 93 Oxygen Delivery Method Room Air Nasal Cannula Nasal Cannula Oxygen Flow Rate (L/min) 2 2 12/08/22 20:00 Temperature 98.2 F Temperature Source Oral Pulse Rate 94 Respiratory Rate 16 Blood Pressure 184/95 H Blood Pressure Mean 124 Pulse Ox 99 Oxygen Delivery Method Nasal Cannula Oxygen Flow Rate (L/min) 1 TAMMY <MARIS Weber - Last Filed: 12/08/22 21:07> [facility] Lab Data Labs: Laboratory Results - last 24 hr 12/08/22 12/08/22 12/08/22 17:05 17:26 18:35 WBC 6.6 RBC 5.11 Hgb 16.0 Hct 45.9 MCV 89.8 MCH 31.3 MCHC 34.9 RDW Std Deviation 37.2 RDW Coeff of Iblly 11.3 L Plt Count 175 MPV 10.8 Immature Gran % (Auto) 0.500 Neut % (Auto) 68.1 Lymph % (Auto) 21.1 [place] % (Auto) 8.9 Eos % (Auto) 0.6 Baso % (Auto) 0.8 Absolute Neuts (auto) 4.5 Absolute Lymphs (auto) 1.38 Nucleated RBC % 0 Sodium 136 Potassium 4.4 Chloride 102 Carbon Dioxide 25.0 Anion Gap 9 BUN 20 H Creatinine 1.20 Estim Creat Clear Calc 68.85 Est GFR (MDRD) Af Amer 79 Est GFR (MDRD) Non-Af 65 BUN/Creatinine Ratio 16.7 Glucose 260 H Lactic Acid 2.5 H* Calcium 10.0 Total Bilirubin 1.30 H AST 20 ALT 29 Alkaline Phosphatase 54 Total Protein 7.9 Albumin 4.3 Globulin 3.6 Albumin/Globulin Ratio 1.2 Lipase 76 H Urine Color Yellow Urine Clarity Sl. Cloudy Urine pH 7.0 Ur Specific [place] 1.010 Urine Protein 30 H Urine Glucose (UA) 1000 H Urine Ketones 50 H Urine Occult Blood 10 H Urine Nitrite Negative Urine Bilirubin Negative Urine Urobilinogen Normal Ur Leukocyte Esterase Negative Urine RBC 0 SEEN Urine WBC 0 SEEN Ur Squamous Epith Cells 0 SEEN Urine Bacteria 0 SEEN Urine Mucus 0 SEEN POC Glucose 275 H 12/08/22 21:20 WBC RBC Hgb Hct MCV MCH MCHC RDW Std Deviation RDW Coeff of Billy Plt Count MPV Immature Gran % (Auto) Neut % (Auto) Lymph % (Auto) [place] % (Auto) Eos % (Auto) Baso % (Auto) Absolute Neuts (auto) Absolute Lymphs (auto) Nucleated RBC % Sodium Potassium Chloride Carbon Dioxide Anion Gap BUN Creatinine Estim Creat Clear Calc Est GFR (MDRD) Af Amer Est GFR (MDRD) Non-Af BUN/Creatinine Ratio Glucose Lactic Acid 1.8 Calcium Total Bilirubin AST ALT Alkaline Phosphatase Total Protein Albumin Globulin Albumin/Globulin Ratio Lipase Urine Color Urine Clarity Urine pH Ur Specific [place] Urine Protein Urine Glucose (UA) Urine Ketones Urine Occult Blood Urine Nitrite Urine Bilirubin Urine Urobilinogen Ur Leukocyte Esterase Urine RBC Urine WBC Ur Squamous Epith Cells Urine Bacteria Urine Mucus POC Glucose Radiography Diagnostic Testing: Clinical Impression(s) from Imaging Studies Abdomen/Pelvis CT 12/08/22 16:59 IMPRESSION: No acute abnormality. Small hiatal hernia. Electronically Signed: Cristopher Thomas MD at 19:29 EDT , Treatment and Re-Evaluation :: Patient appears to be in mild distress secondary to abdominal pain. Patient presents to the emerged from abdominal pain, nausea, vomiting of diarrhea for last 3 days. Patient will have a full abdominal work-up. This to include laboratory values acute lactic acid. Patient also received a CT scan of the abdomen pelvis concerning for any diverticulitis, bowel obstruction. Patient laboratory values show normal CBC, patient's chemistry showed a BUN of 20, creatinine unremarkable. Glucose 260, patient's lactic acid was elevated 2.5. Total bilirubin 1.3. Lipase was 76. Patient did receive a CT scan of theabdomen pelvis, this showed no acute abnormality, small hiatal hernia. Patient's urinalysis shows no infection. On reevaluation, the patient still hadnausea. Patient was given morphine, Zofran, Phenergan. On reassessment, the patient's blood pressure is improved. Patient states he still feels nauseated. Patient was redosed with IV Zofran, 1 more liter normal saline IV. On reassessment, the patient was feeling better, the patient is able to pass a p.o. challenge. At this time, there is no evidence suspect any appendicitis, bowel obstruction, diverticulitis, pancreatitis. Patient be diagnosed with gastroenteritis, we placed on Bentyl, Zofran. He is instructed to maintain hydration, and follow- up with his PCP regarding his blood pressure today. Patient is happy with the plan of care, all questions given. Patient stable fordischarge <Dr. Rosnana Abraham MD - Last Filed: 12/08/22 21:54> [facility] Lab Data Labs: Laboratory Results - last 24 hr 12/08/22 12/08/22 12/08/22 17:05 17:26 18:35 WBC 6.6 RBC 5.11 Hgb 16.0 Hct 45.9 MCV 89.8 MCH 31.3 MCHC 34.9 RDW Std Deviation 37.2 RDW Coeff of Billy 11.3 L Plt Count 175 MPV 10.8 Immature Gran % (Auto) 0.500 Neut % (Auto) 68.1 Lymph % (Auto) 21.1 [place] % (Auto) 8.9 Eos % (Auto) 0.6 Baso % (Auto) 0.8 Absolute Neuts (auto) 4.5 Absolute Lymphs (auto) 1.38 Nucleated RBC % 0 Sodium 136 Potassium 4.4 Chloride 102 Carbon Dioxide 25.0 Anion Gap 9 BUN 20 H Creatinine 1.20 Estim Creat Clear Calc 68.85 Est GFR (MDRD) Af Amer 79 Est GFR (MDRD) Non-Af 65 BUN/Creatinine Ratio 16.7 Glucose 260 H Lactic Acid 2.5 H* Calcium 10.0 Total Bilirubin 1.30 H AST 20 ALT 29 Alkaline Phosphatase 54 Total Protein 7.9 Albumin 4.3 Globulin 3.6 Albumin/Globulin Ratio 1.2 Lipase 76 H Urine Color Yellow Urine Clarity Sl. Cloudy Urine pH 7.0 Ur Specific [place] 1.010 Urine Protein 30 H Urine Glucose (UA) 1000 H Urine Ketones 50 H Urine Occult Blood 10 H Urine Nitrite Negative Urine Bilirubin Negative Urine Urobilinogen Normal Ur Leukocyte Esterase Negative Urine RBC 0 SEEN Urine WBC 0 SEEN Ur Squamous Epith Cells 0 SEEN Urine Bacteria 0 SEEN Urine Mucus 0 SEEN POC Glucose 275 H 12/08/22 21:20 WBC RBC Hgb Hct MCV MCH MCHC RDW Std Deviation RDW Coeff of Billy Plt Count MPV Immature Gran % (Auto) Neut % (Auto) Lymph % (Auto) [place] % (Auto) Eos % (Auto) Baso % (Auto) Absolute Neuts (auto) Absolute Lymphs (auto) Nucleated RBC % Sodium Potassium Chloride Carbon Dioxide Anion Gap BUN Creatinine Estim Creat Clear Calc Est GFR (MDRD) Af Amer Est GFR (MDRD) Non-Af BUN/Creatinine Ratio Glucose Lactic Acid 1.8 Calcium Total Bilirubin AST ALT Alkaline Phosphatase Total Protein Albumin Globulin Albumin/Globulin Ratio Lipase Urine Color Urine Clarity Urine pH Ur Specific [place] Urine Protein Urine Glucose (UA) Urine Ketones Urine Occult Blood Urine Nitrite Urine Bilirubin Urine Urobilinogen Ur Leukocyte Esterase Urine RBC Urine WBC Ur Squamous Epith Cells Urine Bacteria Urine Mucus POC Glucose Radiography Diagnostic Testing: Clinical Impression(s) from Imaging Studies Abdomen/Pelvis CT 12/08/22 16:59 IMPRESSION: No acute abnormality. Small hiatal hernia. Electronically Signed: Cristopher Thomas MD at 19:29 EDT , Treatment and Re-Evaluation :: Patient appears to be in mild distress secondary to abdominal pain. Patient presents to the emerged from abdominal pain, nausea, vomiting of diarrhea for last 3 days. Patient will have a full abdominal work-up. This to include laboratory values acute lactic acid. Patient also received a CT scan of the abdomen pelvis concerning for any diverticulitis, bowel obstruction. Patient laboratory values show normal CBC, patient's chemistry showed a BUN of 20, creatinine unremarkable. Glucose 260, patient's lactic acid was elevated 2.5. Total bilirubin 1.3. Lipase was 76. Patient did receive a CT scan of theabdomen pelvis, this showed no acute abnormality, small hiatal hernia. Patient's urinalysis shows no infection. On reevaluation, the patient still hadnausea. Patient was given morphine, Zofran, Phenergan. On reassessment, the patient's blood pressure is improved. Patient states he still feels nauseated. Patient was redosed with IV Zofran, 1 more liter normal saline IV. Patient seen and evaluated with YESICA. I personally interviewed and examined the patient. I was involved in all aspects of patient's orders, interpretation of results, and treatment. Patient presents with recent gastro symptoms. He has had recent nausea, vomiting, and diarrhea. He thought he is improved and went back to work today. He developed nausea and vomiting again and presents to the emergency room. He does complain of some lower abdominal cramping. No fever. Only prior abdominalsurgery was a cholecystectomy. Patient sitting upright in bed. He appears pale and diaphoretic. Head and neck examination unremarkable. Heart is regular rate and rhythm. Lung sounds are clear. Abdomen is soft, obese, minimal lower abdominal tenderness. No guarding or rebound. CBC was normal white count at 6.6 with hemoglobin of 16. LFTs are unremarkable. Creatinine is 1.2. Glucose is 260. Lactic acid is elevated at 2.5. Lipase is76. Urinalysis reveals no evidence of acute infection with 50 ketones. After being medicated with morphine and Zofran patient did develop some mild hypoxia associated with sedation. He was placed on nasal cannula for short time. Due to continued nausea he was given Phenergan. CT scan of the abdomen and pelvis with IV contrast reveals no acute findings. Again due to continued nausea he received Zofran and another liter of fluid. Repeat lactic acid is improved to 1.8. At this time patient sitting at the side of the bed. He continues to feel nauseated and has not been able to tolerate p.o. Having been given 3 rounds of nausea medication and still feeling quite nauseated I will speak with hospitalist regarding observation overnight. Patient was also noted to be quitehypertensive with systolic blood pressures in the 190 range. He was given a single dose of hydralazine which improved his blood pressure to the 160s for a time. He states his blood pressure normally runs on the high end of normal. This will need to be closely monitored as well. Discharge Plan Dx/Rx/DC Orders Clinical Impression: Nausea & vomiting, Abdominal pain, Hypertension Disposition Disposition: Acute Care Hospital [facility] What to do if you have Problems For any increased pain, shortness of breath, bleeding, nausea or vomiting, chestpain, or any unexpected problems, contact your Primary Care Provider. Call [facility] ([phone]) or report to the closest Emergency Room. Call 911 if necessary. 12/08/222233 <Electronically signed by Rosanna Abraham MD> Cosigner Signature (if applicable): 12/08/222106 <Electronically signed by David SUGGSC> CC: Dr. Zayra Napier, DO ~ Signed [facility] Work Phone: Discharge summary Author Mariela Narvaez [facility] December 14, 2022 2:45pm Note Date/Time December 14, 2022 2:45p m [facility] Medical Records Department [address] [place] [id number] Instructions for Home/Discharge Instructions 12/14/22 1444 MR#: [id number] Acct: [id number] Name: MORENO VILLEGAS Rep #:[id number] : 1960 62 From: Mariela Narvaez MD PCP: Dr. Zayra Napier, Status:ADM IN Discharge Instructions Diet Discharge Diet: Light diet - advance as tolerated Activity Discharge Activity: Return to Normal Activity Follow Up Care Test Results: Test results from this visit will be discussed in further detail at your follow- up appointment, if applicable. Discharge Plan Admission Admit Date/Time: 12/10/22 15:07 Primary Reason for Your Visit: Nausea, vomiting Attending Provider: Mariela Narvaez Primary Care Provider: Zayra Napier Consulting Providers: Kate Carrion Instructions Patient Instructions: Controlling High Blood Pressure, Diabetes Food Shop MealsPrep, Diabetes Exercise Starting, Injection Pens Dc, Diabetes: Meal Planning, Blood Sugar Check Steps, Insulin and Type 2 Diabetes, ED Gastritis (Adult), ED Using an Injection Pen, Diabetes and High Blood Pressure Additional Instructions / Restrictions: DISCHARGE INSTRUCTIONS PLEASE READ *Please take this with you to your next doctors appointment* -You will be discharged on long-acting insulin with 12 units daily. Prescription will be sent in for your insulin and you will be given a prescription for your testing supplies. Is recommended to check your glucose in themorning and keep a log of this. If your glucose is less than 70 please hold your insulin dose and discuss with your physician. If your glucose is consistently over 250 before you see your primary care physician would also recommend contacting them as you may need adjustments to your insulin sooner. You may have oral agents added in the future or sliding scale insulin added by your primary care physician however at this time we will continue the insulin glargine 12 units subcutaneously daily that you are taking in the hospital -You ultimately will need to establish with an eye doctor and a foot doctor, youcan be referred through primary care physician's office on an outpatient basis -It will be important to check your feet regularly for any new wounds or calluses -You will also be discharged on a blood pressure medicine, amlodipine, which youwill take daily due to your persistently elevated blood pressure -Would recommend lab work (BMP) to check your potassium and kidney function in 2to 3 days through your primary care physician's office. Please call their office upon discharge to obtain order for lab work. -You will need to follow-up with Dr. Olsen with GI in his office upon discharge. Please call his office to schedule your hospital follow-up appointment (ph. [phone]) -You will be discharged on Protonix 40 mg twice daily which she will need to take for 8 weeks after which time you may decrease this to once daily but that will ultimately be at the discretion of your outpatient provider. As well as sucralfate/Carafate 1 g orally to take 1 hour before meals and at bedtime for 8 weeks -Please avoid any ibuprofen or NSAIDs moving forward as these can worsen the inflammation in your stomach and duodenum -Please call your primary care provider's office upon discharge to schedule a hospital follow up within 1 week. -For any concerning signs or symptoms please call 911 or proceed to the nearest emergency department Discharge Orders/Prescriptions Prescriptions: New amlodipine 10 mg Tablet 10 mg PO DAILY 30 Days Qty: 30 0RF insulin glargine-yfgn 100 unit/mL (3 mL) Insulin Pen 12 unit subcut DAILY Qty: 15 0RF sucralfate 1 gram Tablet 1 g PO ACHS 30 Days Qty: 120 0RF pantoprazole [Protonix] 40 mg tablet,delayed release (DR/EC) 40 mg PO BID 30 Days Qty: 60 1RF Continued ondansetron 4 MG tablet 4 mg PO Q8H PRN PRN (Reason: Nausea) 5 Days Qty: 10 0RF Discontinued metformin 500 MG tablet 500 mg PO BIDCM Patient Comments: Diabetes pantoprazole 40 MG tablet 40 mg PO DAILY promethazine 25 MG tablet 25 mg PO Q6H PRN PRN (Reason: Nausea) Qty: 10 0RF dicyclomine 10 MG capsule 20 mg PO TIDAC Qty: 20 0RF magnesium citrate 300 ML solution 300 ml PO X1 Qty: 300 0RF Rx Instructions: azithromycin [Zithromax] 500 MG tablet 500 mg PO DAILY Qty: 3 0RF Referrals / Follow Up: Zayra Napier DO [Primary Care Provider] - Within 1 Week Jt Olsen DO [Med Staff - Active Staff] - ( -You will need to follow-up with Dr. Olsen with GI in his office upon discharge. Please call his office to schedule your hospital follow-up appointment (. [phone])) Disposition Disposition (needs filled in before D/C Order can be placed): Home, Self Care 12/14/221444<Electronically signed by Mariela Narvaez MD>Mariela Narvaez MD CC: Dr. Kate Carrion MD; Dr. Zayra Napier DO ~ Signed [facility] Work Phone: Discharge summary Author Mariela [facility] December 14, 2022 2:52pm Note Date/Time December 14, 2022 2:52p [facility] Medical Records Department [address] [place] [id number] Discharge Summary 12/14/22 1445 MR#: [id number] Acct: [id number] Name: MORENO VILLEGAS Rep #:[id number] : 1960 62 From: Mariela Narvaez MD PCP: Dr. Zayra Napier DO Status:ADM IN [id number] Prov[facility] Date of Admission: 12/10/22 Date of Discharge: 12/14/22 Primary Care Physician: Dr. Zayra Napier DO Consultations 12/12/22 05:55 Consult: Gastroenterology AM (NON MEDS) Consulting Provider: [facility] Reason for Consult: Intractable abd pain and nausea, workup unrevealing but symptoms persist EMERGENT Consult: No MD Notified: Yes Date Notified: 12/11/22 Time Notified: 18:19 Method of Notification: Text Reason For Visit: Nausea, vomiting, abdominal pain Diagnosis Discharge Diagnosis (1) Nausea & vomiting: Status: Acute Code(s): R11.2 - Nausea with vomiting, unspecified Qualifiers: Vomiting type: unspecified Qualified Code(s): R11.2 - Nausea with vomiting, unspecified (2) Gastritis: Status: Acute Code(s): K29.70 - Gastritis, unspecified, without bleeding (3) Duodenal ulcer disease: Status: Acute Code(s): K26.9 - Duodenal ulcer, unspecified as acute or chronic, without hemorrhage or perforation (4) Colon polyps: Status: Acute Code(s): K63.5 - Polyp of colon (5) Diabetes mellitus: Status: Chronic Code(s): E11.9 - Type 2 diabetes mellitus without complications Qualifiers: Diabetes mellitus type: type 2 Plan #Intractable nausea and vomiting w/ gastritis and duodenal ulcers #colonic polyps x5/diverticulosis/sigmoid colon congestion #LA grade A reflux esophagitis/small hiatal hernia/acute gastritis/multiple non obstructing oozing duodenal ulcers with pigmental #Hypokalemia #Type 2 diabetes mellitus #Hypertension #Obesity #hx JUANA Medications at Discharge Home Medications ondansetron 4 mg disintegrating tablet 4 mg PO Q8H PRN PRN Nausea 5 days #10 tabs 12/09/22 amlodipine 10 mg tablet 10 mg PO DAILY 30 days #30 tabs 12/14/22 insulin glargine-yfgn 100 unit/mL (3 mL) subcutaneous pen 12 unit (0.12 mL) subcut DAILY #15 mL 12/14/22 pantoprazole 40 mg tablet,delayed release (Protonix) 40 mg PO BID 30 days #60 tabs 12/14/22 sucralfate 1 gram tablet 1 g PO ACHS 30 days #120 tabs 12/14/22 Hospital Course Procedures - (egd, colonoscopy) Summary of Care Provided Minutes Spent on Discharge: 38 Hospital Course: Here 12/08 with intractable nausea, vomiting, diarrhea for 3 days with worsened abdominal discomfort and vomiting on day of presentation. Patient was admitted and started IV fluids and given clear liquids. Initially the day after discharge he felt much better and it was felt that this was self-limited gastroenteritis however in the afternoon he had recurrence of abdominal pain andnausea and vomiting and did have a bowel movement which was sent for studies butthis was negative, diarrhea had resolved but the abdominal pain and nausea persisted despite unremarkable work-up including CT scan of the abdomen which was unrevealing for GI source, query distended bladder and some perinephric stranding however patient did not have significant postvoid residual on the second day he was checked and had no flank pain or other symptoms consistent with urinary renal infection. Inflammatory markers were negative and he did nothave elevated white blood cell count or significant liver dysfunction. Ultimately GI consulted due to continued nausea, vomiting, abdominal pain with unclear etiology and he was taken for upper and lower endoscopies on 12/13 which demonstrated colonic polyps x5/diverticulosis/sigmoid colon congestion and LA grade A reflux esophagitis/small hiatal hernia/acute gastritis/multiple non obstructing oozing duodenal ulcers with pigmental material. He had the polyps removed, sigmoid biopsied and had the duodenal ulcers treated as well. He was already on PPI twice daily and sucralfate added. On day of discharge he reportsoverall he was feeling better and was tolerating diet. Patient would like to gohome and recover the rest away at home. During his hospital stay he also was found to have significant hyperglycemia and A1c was 10.7 and he was started on insulin, he also was persistently hypertensive and was started on amlodipine. Also had to have his potassium replaced. On day of discharge is feeling better. Reports he has had a lot of stress and he thinks that may have contributed to this and was tearful but overall more comfortable and tolerating p.o. and would like to be discharged. Discharge instructions as followed: DISCHARGE INSTRUCTIONS PLEASE READ *Please take this with you to your next doctors appointment* -You will be discharged on long-acting insulin with 12 units daily. Prescription will be sent in for your insulin and you will be given a prescription for your testing supplies. Is recommended to check your glucose inthe morning and keep a log of this. If your glucose is less than 70 please holdyour insulin dose and discuss with your physician. If your glucose is consistently over 250 before you see your primary care physician would also recommend contacting them as you may need adjustments to your insulin sooner. You may have oral agents added in the future or sliding scale insulin added by your primary care physician however at this time we will continue the insulin glargine 12 units subcutaneously daily that you are taking in the hospital -You ultimately will need to establish with an eye doctor and a foot doctor, youcan be referred through primary care physician's office on an outpatient basis -It will be important to check your feet regularly for any new wounds or calluses -You will also be discharged on a blood pressure medicine, amlodipine, which youwill take daily due to your persistently elevated blood pressure -Would recommend lab work (BMP) to check your potassium and kidney function in 2to 3 days through your primary care physician's office. Please call their office upon discharge to obtain order for lab work. -You will need to follow-up with Dr. Olsen with GI in his office upon discharge. Please call his office to schedule your hospital follow-up appointment (ph. [phone]) -You will be discharged on Protonix 40 mg twice daily which she will need to take for 8 weeks after which time you may decrease this to once daily but that will ultimately be at the discretion of your outpatient provider. As well as sucralfate/Carafate 1 g orally to take 1 hour before meals and at bedtime for 8 weeks -Please avoid any ibuprofen or NSAIDs moving forward as these can worsen the inflammation in your stomach and duodenum -Please call your primary care provider's office upon discharge to schedule a hospital follow up within 1 week. -For any concerning signs or symptoms please call 911 or proceed to the nearest emergency department Physical Exam Narrative General: Alert, oriented, appears to be feeling better HEENT: Atraumatic, normocephalic Eyes: Anicteric, normal conjunctiva, extraocular movements grossly intact Neck: Supple Respiratory: Clear to auscultation bilaterally, normal respiratory effort Cardiovascular: Regular rate and rhythm GI: Soft, nondistended, no rebound, guarding, rigidity, has some tenderness but improved from previous Extremities: No edema Musculoskeletal: Moving all extremities Neuro: No overt focal neurological deficits Skin: No rashes appreciated Psych: Cooperative, was slightly tearful talking to his mom passing Weight / BMI Weight Weight: 121.6 kg Body Mass Index (BMI) 37.3 ABG / Lab / Microbiology Data 12/14/22 05:45 12/14/22 05:45 Laboratory: Laboratory Results - last 24 hr 12/13/22 16:22: POC Glucose 195 H 12/13/22 22:14: POC Glucose 191 H 12/14/22 05:45: WBC 7.2, RBC 4.89, Hgb 15.5, Hct 42.6, MCV 87.1, MCH 31.7, MCHC 36.4 H, RDW Std Deviation 36.7, RDW Coeff of Billy 11.5 L, Plt Count 177, MPV 10.8, Immature Gran % (Auto) 0.600, Neut % (Auto) 63.8, Lymph % (Auto) 24.2, [place] % (Auto) 10.8 H, Eos % (Auto) 0.3, Baso % (Auto) 0.3, Absolute Neuts (auto)4.6, Absolute Lymphs (auto) 1.75, Nucleated RBC % 0, Sodium 136, Potassium 3.2 L, Chloride 104, Carbon Dioxide 23.0, Anion Gap 9, BUN 14, Creatinine 0.91, EstimCreat Clear Calc 90.79, Est GFR (MDRD) Af Amer 109, Est GFR (MDRD) Non-Af 90, BUN/Creatinine Ratio 15.4, Glucose 200 H, Calcium 8.7, Total Bilirubin 1.20 H, AST 17, ALT 20, Alkaline Phosphatase 38 L, Total Protein 6.1 L, Albumin 3.2, Globulin 2.9, Albumin/Globulin Ratio 1.1 12/14/22 06:12: POC Glucose 198 H 12/14/22 11:28: POC Glucose 225 H Microbiology: Microbiology 12/09/22 14:40 Stool Enteric Bacteriology - Final 12/09/22 14:40 Stool C. difficile DNA Amplification - Final D/C Instructions Discharge Diet: Light diet - advance as tolerated Meaningful Use Info Meaningful Use Diagnoses (Choose all that apply): None applicable Discharge Plan Admission Admit Date/Time: 12/10/22 15:07 Primary Reason for Your Visit: Nausea, vomiting Attending Provider: Mariela Narvaez Primary Care Provider: Zayra Napier Consulting Providers: Kate Carrion Instructions Patient Instructions: Controlling High Blood Pressure, Diabetes Food Shop MealsPrep, Diabetes Exercise Starting, Injection Pens Dc, Diabetes: Meal Planning, Blood Sugar Check Steps, Insulin and Type 2 Diabetes, ED Gastritis (Adult), ED Using an Injection Pen, Diabetes and High Blood Pressure Additional Instructions / Restrictions: DISCHARGE INSTRUCTIONS PLEASE READ *Please take this with you to your next doctors appointment* -You will be discharged on long-acting insulin with 12 units daily. Prescription will be sent in for your insulin and you will be given a prescription for your testing supplies. Is recommended to check your glucose inthe morning and keep a log of this. If your glucose is less than 70 please holdyour insulin dose and discuss with your physician. If your glucose is consistently over 250 before you see your primary care physician would also recommend contacting them as you may need adjustments to your insulin sooner. You may have oral agents added in the future or sliding scale insulin added by your primary care physician however at this time we will continue the insulin glargine 12 units subcutaneously daily that you are taking in the hospital -You ultimately will need to establish with an eye doctor and a foot doctor, youcan be referred through primary care physician's office on an outpatient basis -It will be important to check your feet regularly for any new wounds or calluses -You will also be discharged on a blood pressure medicine, amlodipine, which youwill take daily due to your persistently elevated blood pressure -Would recommend lab work (BMP) to check your potassium and kidney function in 2to 3 days through your primary care physician's office. Please call their office upon discharge to obtain order for lab work. -You will need to follow-up with Dr. Olsen with GI in his office upon discharge. Please call his office to schedule your hospital follow-up appointment (ph. [phone]) -You will be discharged on Protonix 40 mg twice daily which she will need to take for 8 weeks after which time you may decrease this to once daily but that will ultimately be at the discretion of your outpatient provider. As well as sucralfate/Carafate 1 g orally to take 1 hour before meals and at bedtime for 8 weeks -Please avoid any ibuprofen or NSAIDs moving forward as these can worsen the inflammation in your stomach and duodenum -Please call your primary care provider's office upon discharge to schedule a hospital follow up within 1 week. -For any concerning signs or symptoms please call 911 or proceed to the nearest emergency department Discharge Orders/Prescriptions Prescriptions: New amlodipine 10 mg Tablet 10 mg PO DAILY 30 Days Qty: 30 0RF insulin glargine-yfgn 100 unit/mL (3 mL) Insulin Pen 12 unit subcut DAILY Qty: 15 0RF sucralfate 1 gram Tablet 1 g PO ACHS 30 Days Qty: 120 0RF pantoprazole [Protonix] 40 mg tablet,delayed release (DR/EC) 40 mg PO BID 30 Days Qty: 60 1RF Continued ondansetron 4 MG tablet 4 mg PO Q8H PRN PRN (Reason: Nausea) 5 Days Qty: 10 0RF Discontinued metformin 500 MG tablet 500 mg PO BIDCM Patient Comments: Diabetes pantoprazole 40 MG tablet 40 mg PO DAILY promethazine 25 MG tablet 25 mg PO Q6H PRN PRN (Reason: Nausea) Qty: 10 0RF dicyclomine 10 MG capsule 20 mg PO TIDAC Qty: 20 0RF magnesium citrate 300 ML solution 300 ml PO X1 Qty: 300 0RF Rx Instructions: azithromycin [Zithromax] 500 MG tablet 500 mg PO DAILY Qty: 3 0RF Referrals / Follow Up: Zayra Napier DO [Primary Care Provider] - Within 1 Week Jt Olsen DO [Med Staff - Active Staff] - ( -You will need to follow-up with Dr. Olsen with GI in his office upon discharge. Please call his office to schedule your hospital follow-up appointment (ph. [phone])) Disposition Disposition (needs filled in before D/C Order can be placed): Home, Self Care Charges/Coding Visit Charges Inpatient E&M: 58652 Disch Hosp >30min 12/14/22 1452 <Electronically signed by Mariela Narvaez MD> Cosigner Signature (if applicable): CC: Dr. Zayra Napier DO; Dr. Mariela Narvaez MD~ Signed [facility] Work Phone: evaluation note* Diagnosis Onset Date Resolution Status Abdominal pain acute Nausea & vomiting acute [facility] Work Phone: Evaluation note* Diagnosis Onset Date Resolution Status Abdominal pain acute Colon polyps acute Duodenal ulcer disease acute Gastritis acute Gastroenteritis acute Nausea & vomiting acute Diabetes mellitus chronic [facility] Work Phone: Evaluation note* Diagnosis Onset Date Resolution Status Colon polyps acute Duodenal ulcer disease acute Gastritis acute Gastroenteritis acute Diabetes mellitus chronic Abdominal pain resolved Nausea & vomiting resolved [facility] Work Phone: Evaluation note* Diagnosis Onset Date Resolution Status Colon polyps acute Duodenal ulcer disease acute Gastritis acute Gastroenteritis acute Diabetes mellitus chronic Abdominal pain resolved Nausea & vomiting resolved COVID-19 acute Acute kidney injury acute Colitis acute Diabetes mellitus chronic [facility] Work Phone: Evaluation note* Diagnosis Onset Date Resolution Status COVID-19 acute Diabetes mellitus chronic Acute kidney injury resolved Colitis resolved [facility] Work Phone: Evaluation note* Diagnosis Onset Date Resolution Status Diabetes mellitus chronic Acute kidney injury resolved Colitis resolved [facility] Work Phone: Evaluation noteNo assessment information available [facility] Work Phone: Hospital Discharge instructions Additional Instructions Please advance her diet as tolerated, return for any worsening symptoms.[facility] Work Phone: Hospital Discharge instructions Additional Instructions CT scan negative for any acute process. Laboratory studies were all stable. You had multiple bowel movements in the ED per continue oral fluids for hydration. Follow-up with your doctor.[facility] Work Phone: Chief Complaint and Reason for Visit Chief Complaint ACUTE ASTROENTERITIS Reason for Visit Abdominal pain Nausea & vomiting Chief Complaint ACUTE ASTROENTERITIS ACUTE Gastroenteritis ACUTE Gastroenteritis Nausea, vomiting, abdominal pain ACUTE Gastroenteritis ACUTE Gastroenteritis ACUTE Gastroenteritis ACUTE Gastroenteritis Nausea, vomiting, abdominal pain Reason for Visit Abdominal pain Colon polyps Duodenal ulcer disease Gastritis Gastroenteritis Nausea & vomiting Diabetes mellitus Chief Complaint ACUTE ASTROENTERITIS ACUTE Gastroenteritis ACUTE Gastroenteritis Nausea, vomiting, abdominal pain ACUTE Gastroenteritis ACUTE Gastroenteritis ACUTE Gastroenteritis ACUTE Gastroenteritis Nausea, vomiting, abdominal pain Reason for Visit Colon polyps Duodenal ulcer disease Gastritis Gastroenteritis Diabetes mellitus Abdominal pain Nausea & vomiting Chief Complaint ACUTE ASTROENTERITIS ACUTE Gastroenteritis ACUTE Gastroenteritis Nausea, vomiting, abdominal pain ACUTE Gastroenteritis ACUTE Gastroenteritis ACUTE Gastroenteritis ACUTE Gastroenteritis PREOP Nausea, vomiting, abdominal pain EXPOSED TO COVID n/v SHANIQUA, COLITIS COLITIS, ACUTE KIDNEY INJURY Reason for Visit Colon polyps Duodenal ulcer disease Gastritis Gastroenteritis Diabetes mellitus Abdominal pain Nausea & vomiting COVID-19 Acute kidney injury Colitis Diabetes mellitus Chief Complaint EXPOSED TO COVID n/v SHANIQUA, COLITIS COLITIS, ACUTE KIDNEY INJURY COLITIS, ACUTE KIDNEY INJURY COLITIS, ACUTE KIDNEY INJURY JUANA Reason for Visit COVID-19 Diabetes mellitus Acute kidney injury Colitis Chief Complaint EXPOSED TO COVID n/v SHANIQUA, COLITIS COLITIS, ACUTE KIDNEY INJURY COLITIS, ACUTE KIDNEY INJURY COLITIS, ACUTE KIDNEY INJURY JUANA CONSTIPATION Reason for Visit COVID-19 Diabetes mellitus Acute kidney injury Colitis Chief Complaint EXPOSED TO COVID n/v SHANIQUA, COLITIS COLITIS, ACUTE KIDNEY INJURY COLITIS, ACUTE KIDNEY INJURY COLITIS, ACUTE KIDNEY INJURY JUANA CONSTIPATION JUANA,CPAP Reason for Visit COVID-19 Diabetes mellitus Acute kidney injury Colitis Chief Complaint n/v SHANIQUA, COLITIS COLITIS, ACUTE KIDNEY INJURY COLITIS, ACUTE KIDNEY INJURY COLITIS, ACUTE KIDNEY INJURY JUANA CONSTIPATION JUANA,CPAP Reason for Visit Diabetes mellitus Acute kidney injury Colitis Chief Complaint JUANA CONSTIPATION JUANA,CPAP n/v Chief Complaint CONSTIPATION JUANA,CPAP n/v Chief Complaint n/v Chief Complaint n/v ABD PAIN Family History No Family History Records Found Relationship Condition Age at Onset Recorded Date/T marcus mother Diabetes mellitus Unknown Cardiac disease Unknown Malignant neoplasm Unknown Advance Directives No Advanced Directives Records Found Advance Directive Response Recorded Date/ Time Advance Directives No March 15, 2021 10:39am Living Will No December 08, 2022 5 :10pm Power of Tailer Off No December 08, 2022 5:10pm Advance Directive Response Recorded Date/ Time Advance Directives No March 15, 2021 10:39am Living Will No December 08, 2022 1 1:20pm Power of Tailer Off No December 08, 2022 11:20pm Advance Directive Response Recorded Date/ Time Advance Directives No February 10:49am Living Will No March 11 4:28pm Power of Tailer Off No March 11 023 4:28pm Advance Directive Response Recorded Date/ Time Advance Directives No February 9:49am Living Will No March 11 11:27pm Power of Tailer Off No March 11 023 11:27pm Advance Directive Response Recorded Date/ Time Advance Directives No February 9:49am Living Will No May 21 023 6:39pm Power of Tailer Off No May 21, 2023 6:39pm Advance Directive Response Recorded Date/ Time Name of Medical Power of Tailer Off atul villegas August 13, 2023 4:07am Advance Directives No February 9:49am Living Will Yes August 13, 2023 4:07am Power of Tailer Off Yes August 12 4:07am Advance Directive Response Recorded Date/ Time Name of Medical Power of Tailer Off atul villegas August 13, 2023 5:07am Advance Directives No February 10:49am Living Will Yes August 13, 2023 5:07am Power of Tailer Off Yes August 12 5:07am Summary Purpose Additional Source Comments Care Teams (unrecognized sec tion and content) Team Status: Active Member Role Status Dates Dr. Zayra Napier DO Family Provider Active Dr. Zayra Napier DO Primary Care Provider Active Team Status: Active Member Role Status Dates Dr. Zayra Napier DO Primary Care Provider Active Dr. Rosanna Abraham MD Emergency Provider Active Dr. Kate Carrion MD Admit Provider, Attending Provider, Referring Provider Active Team Status: Active Member Role Status Dates Dr. Zayra Napier DO Primary Care Provider Active Dr. Rosanna Abraham MD Emergency Provider Active Dr. Kate Carrion MD Admit Provider, Attending Provider, Other Provider Active Team Status: Active Member Role Status Dates Dr. Zayra Napier DO Primary Care Provider Active Dr. Rosanna Abraham MD Emergency Provider Active Dr. Kate Carrion MD Admit Provider, Referring Provider, Other Provider Active Dr. Mariela Narvaez MD Attending Provider, Other Provid er Active Team Status: Active Member Role Status Dates Dr. Zayra Napier DO Primary Care Provider Active Dr. Rosanna Abraham MD Emergency Provider Active Dr. Kate Carrion MD Admit Provider, Referring Provider, Other Provider Active Dr. Mariela Narvaez MD Other Provider Active Dr. Jt Olsen DO Attending Provider Active Team Status: Active Member Role Status Dates Dr. Zayra Napier DO Primary Care Provider Active Dr. Jt Olsen DO Attending Provider Active Team Status: Inactive Member Role Status Dates Dr. Zayra Napier DO Primary Care Provider Active Dr. Rosanna Abraham MD Emergency Provider Active Dr. Kate Carrion MD Admit Provider, Referring Provider, Other Provider Active Dr. Mariela Narvaez MD Attending Provider Active Team Status: Active Member Role Status Dates Dr. Zayra Napier DO Primary Care Provider Active Dr. Rosanna Abraham MD Emergency Provider Active Dr. Kate Carrion MD Admit Provider, Other Provider Active Dr. Mariela Narvaez MD Attending Provider, Other Provid er Active Team Status: Inactive Member Role Status Dates Dr. Zayra Napier , DO Primary Care Prov ider, Attending Provider, Referring Provider Active Team Status: Active Member Role Status Dates Dr. Zayra Napier , DO Primary Care Provider Active Dr. Jt Olsen , DO Attending Provider Active Dr. Mariela Narvaez MD Referring Provider Active Team Status: Active Member Role Status Dates Dr. Zayra Napier , DO Primary Care Provider Active Dr. Marlon Esquivel MD Attending Provider Active Dr. Marvel Velez MD Referring Provider Active Team Status: Inactive Member Role Status Dates Dr. Zayra Napier , DO Primary Care Provider, Referrin g Provider Active Yobany GUARDADO, PA Attending Provider Active Team Status: Active Member Role Status Dates Dr. Zayra Napier , DO Primary Care Provider Active Dr. Wily Maldonado , DO Emergency Provider Active Dr. David Renner MD Admit Provider, At tending Provider, Other Provider Active Team Status: Active Member Role Status Dates Dr. Zayra Napier DO Primary Care Provider Active Dr. Wily Maldonado , DO Emergency Provider Active Dr. David Renner MD Admit Provider, Attending Provid er Active Team Status: Inactive Member Role Status Dates Dr. Zayra Napier DO Primary Care Provider Active Dr. Lam Yo , DO Emergency Provider Active Team Status: Active Member Role Status Dates Dr. Zayra Napier DO Primary Care Provider Active Dr. Wily Maldonado , DO Emergency Provider Active Dr. David Renner MD Admit Provider, Other Provider A ctive Dr. Zayra Hinojosa , DO Attending Provider, Other Pro vider Active Team Status: Inactive Member Role Status Dates Dr. Zayra Napier DO Primary Care Provider Active Dr. Wily Maldonado , DO Emergency Provider Active Dr. David Renner MD Admit Provider, Other Provider A ctive Dr. Zayra Hinojosa , DO Attending Provider Active Team Status: Inactive Member Role Status Dates Dr. Zayra Napier DO Primary Care Provider Active Dr. Lam Yo , DO Attending Provider, Emergency Provider Active Team Status: Inactive Member Role Status Dates Dr. Zayra Napier DO Primary Care Provider Active Dr. Matt Black DO Emergency Provider Active Team Status: Inactive Member Role Status Dates Dr. Zayra Napier , DO Primary Care Provider, Attendin g Provider Active Team Status: Inactive Member Role Status Dates Dr. Zayra Black , DO Primary Care Provider Active Dr. Matt Black DO Attending Provider, Emergency Provide r Active Team Status: Inactive Member Role Status Dates Dr. Zayra Napier , DO Primary Care Provider Active Dr. Wily Maldonado , DO Emergency Provider Active Team Status: Inactive Member Role Status Dates Dr. Zayra Napier , DO Primary Care Provider Active Dr. Wily Maldonado , DO Attending Provider, Emergency P rovider Active Goals (unrecognized section and content) Goals may be documented in a n alternate sectionGoals may be documented in an alternate sectionGoals may be documented in an alternate sectionGoals may be documented in an alternate sectionGoals may be documented in an alternate section (unrecognized sect ion and content) No Status Records FoundNo Status Records Found INFORMATION SOURCE (unrecogn ized section and content) DATE CREATED AUTHOR 07/26/2024 [facility] DATE CREATED AUTHOR AUTHOR'S RAJANI LAWRENCE 11/14/2024 [facility] FOR RECORDS PERTAINING TO PATIENTS WHO ARE OR HAVE BEEN ENROLLED IN A CHEMICAL DEPENDENCY/SUBSTANCEABUSE PROGRAM, SOME INFORMATION MAY BE OMITTED. This clinical summary was aggregated from multiple sources. Caution should be exercised in using it in the provision of clinical care. This summary normalizes information from multiple sources, and as a consequence, information in this document may materially change the coding, format and clinical context of patient data. In addition, data may be omitted in some cases. CLINICAL DECISIONS SHOULD BE BASED ON THE PRIMARY CLINICAL RECORDS. [employer]. provides no warranty or guarantee of the accuracy or completeness of information in this document.
[2024-11-19 22:52] VITALS: BP 167/95; PULSE 106; RESP 30; O2SAT 94
--- NOTE | 2024-11-19 22:55 | EDS_ITS ---
HPI History of Present Illness Chief Complaint: Nausea/Vomiting Detail of Chief Complaint: Patient presents with nausea and vomiting Informant: patient Onset/Context/Timing Onset: Yesterday Context: Sudden Onset Timing: Intermittent Quality: Patient had bilious emesis. He is now having dry heaves. Location: GI Current Severity: Severe Maximum Severity: Severe Worsened by: He states this is due to his colitis. However he has no diarrhea, blood or Relieved by: Nothing Associated Symptoms Associated Symptoms: thirst, dry mouth, orthostatic lightheadedness slight decrease in urine ou Narrative Narrative: Patient is a 64-year-old male presents with 2 days of nausea vomiting. He is now having dry heaves. Initially emesis is bilious. He denied hematemesis or coffee-ground emesis. He complains of some mild central abdominal pain. He denies constipation, diarrhea, black or maroon-colored stool. He denies blood or mucus in his stool. His last bowel movement was formed. He does not feel bloated. He denies cough, shortness of breath or difficulty breathing. He has not had any ill contacts to his knowledge. Patient denies fever, chills night sweats. Nuys weight gain or weight loss. He denies headache, visual, ocular auditory symptoms. He denies cardiac or respiratory symptoms. Prior similar symptoms: Yes Recent Illness/Hospitalization: No [facility] Medical History Former tobacco use Obesity GERD (gastroesophageal reflux disease) Hypertension Type 2 diabetes mellitus JUANA (obstructive sleep apnea) Home Medications ?Medication ?Instructions ?Recorded ?Last Taken ?Type pantoprazole 40 mg tablet,delayed 40 mg PO BID 30 days #60 tabs 12/14/22 Unknown Rx release (Protonix) amlodipine 5 mg tablet 5 mg PO DAILY 04/05/24 Unkno wn History dicyclomine 20 mg tablet 20 mg PO TID #20 tabs Unknown Rx insulin glargine 100 unit/mL (3 20 unit subcut DAILY 1 Unknown History mL) subcutaneous pen (Basaglar KwikPen U-100 Insulin) ondansetron 4 mg disintegrating 4 mg PO Q8H PRN PRN Na usea #10 tabs 04/05/24 Unknown Rx tablet rosuvastatin 20 mg tablet 20 mg PO DAILY 04/05/24 Unkn own History tirzepatide 7.5 mg/0.5 mL 7.5 mg subcut QWEEK 04/05/24 Unknown History subcutaneous pen injector (Mounjaro) ondansetron 4 mg disintegrating 4 mg PO Q8H PRN PRN Na usea #10 tabs 06/09/24 Unknown Rx tablet prednisone 20 mg tablet 40 mg (2 x 20 mg) PO DAILY # 10 tabs 06/09/24 Unknown Rx Allergy/AdvReac Type Severity Reaction Status Date / Time No Known Allergies Allergy Verified 11/19/24 20:52 Family History Mother Diabetes Heart disease Cancer Father No problems noted. Surgical History History of surgery on lower extremity History of cholecystectomy Social History household members: other details: Notes his son lives with him. Smoking Status: Former smoker alcohol intake: never substance use type: does not use ROS ROS ED Constitutional Constitutional ED: Denies chills, fever(s), subjective, sweats or weight loss Eyes Eyes: Denies blurry vision or change in vision ENT ENT ED: Denies ear pain, rhinorrhea or sore throat Cardiovascular Cardiovascular: Denies chest pain, orthopnea, palpitations, paroxysmal nocturnal dyspnea or racing heartbeat Respiratory/Chest Respiratory/Chest: Denies cough, dyspnea, dyspnea on exertion, orthopnea or paroxysmal nocturnal dyspnea Gastrointestinal Gastrointestinal: Reports abdominal pain, nausea, vomiting and other Details: No hematemesis or coffee-ground emesis. ; Denies constipation, diarrhea or melena Genitourinary Genitourinary ED: Denies dysuria, hematuria or urinary frequency Musculoskeletal Musculoskeletal: Denies arthralgias or myalgias Integumentary Denies abscess, Abrasions or rash Neurologic Neurologic: Reports weakness; Denies headache(s) or paresthesias Endocrine Endocrinology: Denies cold intolerance or heat intolerance Hematologic/Lymphatic Hematologic/Lymphatic: Reports systems reviewed and no addt'l complaints, except as documented EXAM Physical Exam Const Vital Signs: 11/19/24 20:52 11/19/24 20:54 11/19/24 22:52 Temperature 97.6 F L 97.6 F L Temperature Source Oral Oral Pulse Rate 106 H 106 H 106 H Respiratory Rate 18 18 30 H Blood Pressure 188/83 H 188/83 H 167/95 H Blood Pressure Mean 118 118 119 Pulse Ox 99 99 94 Oxygen Delivery Method Room Air Room Air Room Air 11/20/24 00:00 Temperature Temperature Source Pulse Rate 115 H Respiratory Rate 25 H Blood Pressure 182/96 H Blood Pressure Mean 124 Pulse Ox 95 Oxygen Delivery Method Room Air Positive well nourished and well developed Constitutional Narrative: Patient appears ill. His skin is cool to touch. He is slightly diaphoretic. He did have emesis before I entered the room. This may be a vagal response. General Appearance ED: well developed; Negative for cyanotic, diaphoretic, NAD or pallor HEENT Reports dry mucous membranes HEENT Narrative: Head is atraumatic normocephalic. Ears normal. Nares patent. Posterior pharynx erythema exudate. Uvula midline. No deviation tongue protrusion. Mouth ED: Yes dry mucous membranes Mouth: dry mucous membranes Eyes PERRL and EOMs intact bilaterally General Eye ED: Negative for pale conjunctiva or scleral icterus Neck no lymphadenopathy, supple and no JVD Chest Wall inspection of chest normal and palpation of chest normal Resp normal respiratory effort and clear to auscultation bilaterally Cardio regular rhythm, S1 normal heart sound, S2 normal heart sound and no murmurs Rate: tachycardic GI normal to inspection, nondistended, normoactive bowel sounds, non-distended and no masses; Negative for non-tender or hepatosplenomegaly Palpation: tender periumbilical Back/Spine no CVA tenderness Extremity normal to inspection General Extremety ED: Negative for tenderness Neuro oriented x3 and CN's II-XII intact bilaterally Neuro Narrative: Patient is awake. Skin no rashes or lesions noted, no wounds and skin turgor normal Skin Narrative: Patient is slightly diaphoretic and cool to touch. There is no mottling. There is no delayed capillary refill. General Skin Exam: Negative for elasticity normal, jaundice or pallor MDM MDM MDM Narrative Medical decision making narrative: This may represent gastroparesis, viral illness, side effect to his Mounjaro, doubt colitis. Since clinically is dehydrated and diabetic will obtain electrolyte panel to assess anion gap, glucose, electrolytes. Nurse protocol was entered and lipase and hepatic profile was added as well because he apparently complained of upper abdominal pain. CBC to assess white count differential. History & Record Review Additional record(s) reviewed:: Prior ED visit (Last ER visit for nausea and vomiting was June 09, 2024. Note was authored by Dr. Calhoun. The note was reviewed.) and Prior labs Lab Data Attestation: I reviewed the patient's lab results. Lab results narrative: CBC is unremarkable. There is a slight shift. This could be due to to stress or viral infection. Comprehensive metabolic panel reveals no evaded bilirubin to 1.36. AST and ALT are normal. Glucose is elevated to 36. She does have a history of type 2 diabetes. CO2 was slightly low and anion gap is elevated. Lipase was normal. Labs: Laboratory Results - last 24 hr 11/19/24 21:00 WBC 8.2 RBC 4.92 Hgb 15.6 Hct 43.6 MCV 88.6 MCH 31.7 MCHC 35.8 RDW Std Deviation 37.7 RDW Coeff of Billy 11.8 Plt Count 207 MPV 10.8 Immature Gran % (Auto) 0.500 Neut % (Auto) 81.8 H Lymph % (Auto) 13.2 L [place] % (Auto) 4.0 Eos % (Auto) 0.0 Baso % (Auto) 0.5 Absolute Neuts (auto) 6.7 Absolute Lymphs (auto) 1.08 Nucleated RBC % 0 Sodium 138 Potassium 4.4 Chloride 100 Carbon Dioxide 19.6 L Anion Gap 18 H BUN 20 H Creatinine 1.17 Estim Creat Clear Calc 86.07 Est GFR (MDRD) Non-Af 70 BUN/Creatinine Ratio 17.3 Glucose 236 H Calcium 10.1 Total Bilirubin 1.36 H AST 28 ALT 24 Alkaline Phosphatase 50 Total Protein 7.4 Albumin 4.5 Globulin 2.9 Albumin/Globulin Ratio 1.5 Lipase 36 Treatment and Re-Evaluation :: Patient was reassessed at 2254. He was asleep. He was awakened. He states his nausea has improved. He has not vomited since he received Zofran. He has received 500 cc of the liter of normal saline was ordered. Will reassess in 30 minutes. Patient was reassessed at 2324. He is sitting up. Does state he feels better. He reports that he had dry heaves. He has no urge to urinate. Second liter of normal saline was ordered and he was treated with Reglan parentally for his dry heaves. Comments:: Patient was reassessed at 0024. He states his nausea has resolved. P.o. challenge was ordered. His blood pressure still elevated. However, there is no evidence of endorgan dysfunction. The only med listed for hypertension is amlodipine. Patient was asked if he has gastroparesis. He responded I have never heard of that. Patient did pass p.o. challenge and he has urinated. Will discharge after second liter of normal saline has infused. Vital Sign Attestation:: Patient prior ER visit blood pressures has varied from 130 systolic to up to 190 systolic. Discharge Plan Triage Chief Complaint: Nausea/Vomiting ED Provider: Donavan Crane Dx/Rx/DC Orders Clinical Impression: Nausea & vomiting, Acute dehydration, Sinus tachycardia seen on monitor technician, High anion gap metabolic acidosis, Elevated blood pressure reading with diagnosis of hypertension, Hyperglycemia due to type 2 diabetes mellitus Instructions: ED Vomiting (Adult) Prescriptions: No Action pantoprazole [Protonix] 40 mg tablet,delayed release (DR/EC) 40 mg PO BID 30 Days Qty: 60 1RF ondansetron 4 mg tablet,disintegrating 4 mg PO Q8H PRN PRN (Reason: Nausea) Qty: 10 0RF prednisone 20 mg tablet 40 mg PO DAILY Qty: 10 0RF amlodipine 5 mg tablet 5 mg PO DAILY rosuvastatin 20 mg tablet 20 mg PO DAILY insulin glargine [Basaglar KwikPen U-100 Insulin] 100 unit/mL (3 mL) insulin pen 20 unit subcut DAILY Mounjaro 7.5 mg/0.5 mL pen injector 7.5 mg subcut QWEEK ondansetron 4 mg tablet,disintegrating 4 mg PO Q8H PRN PRN (Reason: Nausea) Qty: 10 0RF dicyclomine 20 mg tablet 20 mg PO TID Qty: 20 0RF Primary Care Provider: Evans Napier Referrals: Evans Napier, [Primary Care Provider] - 1-2 Days if not improving Activity Restrictions/Additional Instructions: 1. You were prescribed Reglan to be taken by mouth for your nausea and vomiting for the next 2 days. 2. Recommend contacting Dr. Napier for blood pressure check in 1 to 2 weeks. You may need your amlodipine dose increased or placed on additional antihypertensive medication. Print Language: Polish Disposition Disposition: Home, Self Care
[2024-11-19] MEDS: Metoclopramide 10 MG/2 ML Vial IV (23:29)
[2024-11-20] VITALS: BP 182/96; PULSE 115; RESP 25; O2SAT 95
[2024-11-20 00:53] VITALS: BP 176/101; PULSE 115; RESP 18; TEMP 36.4; O2SAT 100
--- NOTE | 2024-11-20 00:54 | ED.RN ---
pt states he takes meds for BP but has been unable to since he has been puking so much. Dr. Crane notified of pt vitals on D/C. Gave okay for D/C
== END 2024-11-20 00:55 | disposition home or self-care (01) ==
PROVIDERS: Emergency Provider Emergency Medicine; PCP Family Medicine; Referring Provider Emergency Medicine; Visit Provider Emergency Medicine
DX: R11.2 Nausea with vomiting, unspecified (principal); E11.65 Type 2 diabetes mellitus with hyperglycemia; Z79.4 Long term (current) use of insulin; I10 Essential (primary) hypertension; R00.0 Tachycardia, unspecified; E86.0 Dehydration; E87.21 Acute metabolic acidosis; E66.9 Obesity, unspecified; Z68.37 Body mass index [BMI] 37.0-37.9, adult; Z79.85 Long-term (current) use of injectable non-insulin antidiabetic drugs; Z79.899 Other long term (current) drug therapy; Z87.891 Personal history of nicotine dependence
CPT/HCPCS: 80053; 83690; 85025; 96361; 96374; 96375; 99283; A4216; J2405

== ENCOUNTER → 2024-11-25 | Outpatient (CLI) | payer OTHER, SELFPAY ==
--- NOTE | 2024-11-25 11:53 | EKG12_ITS ---
Test Reason : PREOP Blood Pressure : */* mmHG Vent. Rate : 97 BPM Atrial Rate : 97 BPM P-R Int : 180 ms QRS Dur : 102 ms QT Int : 364 ms P-R-T Axes : 79 -33 103 degrees QTcB Int : 462 ms Sinus rhythm with occasional Premature ventricular complexes and Possible Premature atrial complexes with Aberrant conduction Left axis deviation Moderate voltage criteria for LVH, may be normal variant T wave abnormality, consider lateral ischemia Prolonged QT Abnormal ECG Confirmed by TREVA LYNN, MARIA DEL ROSARIO ([id number]), scientific editor JENNIFER DAVIS ([id number]) on 11/25/2024 12:45:43 PM Referred By: Armando Denson Confirmed By: MARIA DEL ROSARIO TILLEY MD
== END | disposition home or self-care (01) ==
LOC: PSN 11:50
PROVIDERS: PCP Family Medicine; Referring Provider Specialist; Visit Provider Specialist
DX: Z01.818 Encounter for other preprocedural examination (principal)
CPT/HCPCS: 93005

== ENCOUNTER → 2024-11-28 | Outpatient (CLI) | payer OTHER, SELFPAY ==
--- OUTSIDE RECORDS SUMMARY | 2024-11-28 08:11 | XMS RPT_ITS | CCD ---
Author Organization [facility] Care Team Providers Care [employer] Name Role Phone Dr. Zayra Napier Primary Care Provider [phone] Dr. Rosanna Abraham Emergency Provider Dr. Kate Carrion Admit Provider Dr. Kate Carrion Attending Provider Dr. Kate Carrion Other Provider Dr. Kate Carrion Referring Provider Dr. Mariela Narvaez Attending Provider Dr. Mariela Narvaez Other Provider Dr. Jt Olsen Attending Provider Dr. Kate Carrion Referring Provider Dr. Marlon Esquivel Attending Provider Dr. Marvel Velez Referring Provider Dr. Mariela Narvaez Referring Provider Dr. Zayra Napier Referring Provider [phone] GEO Dale Attending Provider [phone] Wily Maldonado Emergency Provider Dr. David Renner Admit Provider Dr. David Renner Attending Provider Dr. David Renner Other Provider Dr. Zayra Napier Primary Care Provider Dr. Zayra Napier Referring Provider [phone] GEO Dale Attending Provider [phone] Wily Maldonado Emergency Provider Dr. David Rennerit Provider Dr. David Renner Attending Provider Dr. David Renner Other Provider Dr. Zayra Hinojosa Attending Provider Dr. Zayra Hinojosa Other Provider Dr. Zayra Napier Primary Care Provider Dr. Zayra Napier DO Primary Care Provider Royce LYNN, Dr. Go Referring Provider Royce LYNN, Dr. Go Emergency Provider Zayra Napier Primary Care Unavailable Vandana Calhoun Attending Unavailable Royce, Donavan Referring Unavailable Royce, Donavan Attending Unavailable Black, Zayra Primary Care Unavailable Black, Zayra Primary Care Unavailable Ej Elliott Attending Unavailable Black, Zayra Referring Unavailable Black, Zayra Attending Unavailable Black, Zayra Primary Care Unavailable Black, Zayra Attending Unavailable Black, Zayra Primary Care Unavailable BLACK WILLARD, DR ZAYRA Meredith Primary Care Unavailab jessy HATHAWAY MD, DR KOMAL Meredith Attending Unavailab jessy HATHAWAY MD, DR KOMAL Meredith Attending Unavailab jessy NAPIER DO, DR ZAYRA Meredith Primary Care Unavailab jessy NAPIER DO, DR ZAYRA Meredith Primary Care Unavailab Tatiana LYNN, DR KOMAL Meredith Attending Unavailab jessy NAIPER DO, DR IVERSON A Primary Care Physician Medications Current Medications Medication Drug Class(es) Dates Sig (Normalized) Sig (Original) 0.5 ML tirzepatide 15 MG/ML Auto-Injector [Mounjaro] (2 sources) Start: 11-26-2024 inject 1 dose by subcutaneous injection every week Mounjaro 7.5 mg/0.5 mL subcutaneous solution Dose : 7.5 mg =, Subcutaneous, qWeek, rotate injection sites Start Date: 11/26/24 Status: Ordered Repeat number: 1 amLODIPine 5 mg oral tablet (15 sources) Dihydropyridine Calcium Channel Cayden Start: 11-26-2024 amLODIPine 5 mg oral tablet Dose : 5 mg = 1 tab(s), Oral, qDay, # 30 tab(s), 0 Refill(s) Start Date: 11/26/24 Status: Ordered Quantity: 30.0 Unit: tab(s) Repeat number: 1 Start: 04-05-2024 take 1 tablet by salvatore th once daily Amlodipine 5 mg tablet Active 5 mg PO DAILY April 05, 2024 12:00am Start: 12-14-2022 End: 03-11-2023 take 1 tablet by mouth once daily Amlodipine 10 mg Tablet Discontinued 10 mg PO DAILY December 14, 2022 12:00am March 11, 2023 4:31pm aspirin 81 mg delayed release oral tablet (2 sources) Platelet Aggregation Inhibitor, Nonsteroidal Anti-inflammatory Drug Start: 11-26-2024 aspirin 81 mg oral delayed release tablet Dose : 81 mg = 1 tab(s), Oral, Daily, 0 Refill(s) Start Date: 11/26/24 Status: Ordered Repeat number: 1 dicyclomine hydrochloride 20 mg oral tablet (15 sources) Anticholinergic Start: 04-05-2024 take 1 tablet by mouth three times daily Dicyclomine 20 mg tablet Active 20 mg PO THREE TIMES A DAY April 05, 2024 12:00am Start: 12-08-2022 take 20 mg by mouth three times daily Dicyclomine Active 20 MG PO THREE TIMES A DAY December 08, 2022 12:00am Start: 02-15-2016 End: 12-09-2022 take 2 capsules by mouth three times daily before mealtime Dicyclomine 10 MG capsule Discontinued 20 mg PO THREE TIMES DAILY BEFORE MEALS February 15, 2016 12:00am December 09, 2022 2:32pm Start: 02-15-2016 End: 12-09-2022 take 20 mg by mouth three times daily before mealtime Dicyclomine Discontinued 20 MG PO THREE TIMES DAILY BEFORE MEALS February 15, 2016 12:00am December 09, 2022 2:32pm ibuprofen 200 mg oral capsule (2 sources) Nonsteroidal Anti-inflammatory Drug Start: 11-26-2024 ibuprofen 200 mg oral capsule Dose : 400 mg = 2 cap(s), Oral, q4h, PRN for pain, 0 Refill(s) Start Date: 11/26/24 Status: Ordered Repeat number: 1 3 ml insulin glargine 100 unt/ml pen injector (3 sources) Insulin Analog Start: 11-26-2024 inject 1 dose by subcutaneous injection once daily in the morning Salvador Espinosa 100 units/mL subcutaneous solution Dose : 20 unit(s) =, Subcutaneous, qAM, 0 Refill(s) Start Date: 11/26/24 Status: Ordered Repeat number: 1 Start: 04-05-2024 Insulin Glargi ne (Insulin Glargine 100 Unit/Ml (3 Ml) Subcutaneous Pen) 100 unit/mL (3 mL) insulin pen Active 20 U SC DAILY April 05, 2024 12:00am Insulin Glargine-Yfgn (17 sources) Start: 03-11-2023 Insulin Glargi ne-Yfgn Active 0 SC DAILY March 10, 2023 11:00pm subcutaneously daily; sliding scale based on bg test result Start: 03-11-2023 Insulin Glargi ne-Yfgn Active 0 SC DAILY March 11, 2023 12:00am subcutaneously daily; sliding scale based on bg test result Start: 12-14-2022 End: 03-11-2023 Insulin Glargine-Yfgn 100 un it/mL (3 mL) Insulin Pen Discontinued 12 U SC DAILY December 14, 2022 12:00am March 11, 2023 10:12pm Start: 12-14-2022 End: 03-11-2023 Insulin Glargine-Yfgn Discon [...] sliding scale based on bg test result metoclopramide 10 mg oral tablet (3 sources) Dopamine-2 Receptor Antagonist Start: 11-26-2024 metoclopramide 10 mg oral tablet Dose : 10 mg = 1 tab(s), Oral, QID, PRN Headache Start Date: 11/26/24 Status: Ordered Repeat number: 1 Start: 11-20-2024 take 1 tablet by salvatore th four times daily as needed for headache Metoclopramide Hcl 10 mg tablet Active 10 mg PO 4 TIMES DAILY as needed for Headache November 20, 2024 12:00am Multivitamin preparation (2 sources) Start: 11-26-2024 take 1 tablet by mouth once daily Multivitamin Dose = 1 tab(s), Oral, Daily, 0 Refill(s) Start Date: 11/26/24 Status: Ordered Repeat number: 1 ondansetron 4 mg disintegrating oral tablet (20 sources) Serotonin-3 Receptor Antagonist Start: 02-15-2016 End: 04-05-2024 take 1 tablet by mouth every eight hours as needed for nausea Ondansetron 4 mg tablet,disintegrat ing Active 4 mg PO EVERY 8 HOURS NEEDED as needed for Nausea June 09, 2024 1:00am pantoprazole 40 mg delayed release oral tablet (20 sources) Proton Pump Inhibitor Start: 11-26-2024 pantoprazole 40 mg oral enteric coated tablet Dose : 40 mg = 1 tab(s), Oral, qDayAC, 0 Refill(s) Start Date: 11/26/24 Status: Ordered Repeat number: 1 Start: 12-14-2022 take 1 tablet by salvatore th twice daily Pantoprazole (Protonix) 40 mg tablet,delayed release (DR/EC) Active 40 mg PO TWICE A DAY 60 December 14, 2022 12:00am Start: 11-22-2015 End: 12-09-2022 take 1 tablet by mouth once daily Pantoprazole 40 MG tablet Discontinued 40 mg PO DAILY November 22, 2015 12:00am December 09, 2022 2:33pm predniSONE 20 mg oral tablet (1 source) Start: 06-09-2024 take 2 tablets by mouth once daily Prednisone 20 mg tablet Active 40 mg PO DAILY June 09, 2024 1:00am rosuvastatin calcium 20 mg oral tablet (3 sources) HMG-CoA Reductase Inhibitor Start: 11-26-2024 rosuvastatin 20 mg oral tablet Dose : 20 mg = 1 tab(s), Oral, Daily, 0 Refill(s) Start Date: 11/26/24 Status: Ordered Repeat number: 1 Start: 04-05-2024 take 1 tablet by salvatore th once daily Rosuvastatin 20 mg tablet Active 20 mg PO DAILY April 05, 2024 12:00am Tirzepatide (Kangunjaro) 7.5 mg/0.5 mL pen injector (1 source) Start: 04-05-2024 Tirzepatide (M ounjaro) 7.5 mg/0.5 mL pen injector Active 7.5 mg SC EVERY WEEK April 05, 2024 12:00am Vitamin D3 25 mcg (1000 intl units) oral capsule (2 sources) Start: 11-26-2024 Vitamin D3 25 mcg (1000 intl units) oral capsule Dose : 25 mcg = 1 cap(s), Oral, Daily, 0 Refill(s) Start Date: 11/26/24 Status: Ordered Repeat number: 1 Completed/Discontinued Medications Medication Drug Class(es) Dates Sig (Normalized) Sig (Original) amoxicillin 500 mg oral tablet (9 sources) Penicillin-class Antibacterial Start: 03-13-2023 End: 05-21-2023 take 1 tablet by mouth three times daily Amoxicillin 500 mg tablet Discontinued 500 mg PO THREE TIMES A DAY March 13, 2023 12:00am May 21, 2023 7:20pm start in the afternoon on 03/13/23 azithromycin 500 mg oral tablet (13 sources) Macrolide Antimicrobial Start: 02-15-2016 End: 12-09-2022 take 1 tablet by mouth once daily Azithromycin (Zithromax) 500 MG tablet Discontinued 500 mg PO DAILY February 15, 2016 12:00am December 09, 2022 2:32pm Insulin Glargine-Yfgn 100 unit/mL (3 mL) Insulin Pen (1 source) Start: 03-11-2023 End: 04-05-2024 inject 100 [IU] by subcutaneous injection once daily Insulin Glargine-Yfgn 100 unit/mL (3 mL) Insulin Pen Discontinued 0 SC DAILY March 11, 2023 12:00am April 05, 2024 1:05pm subcutaneously daily; sliding scale based on bg test result magnesium citrate 58.2 mg/ml oral solution (13 sources) Start: 02-15-2016 End: 12-09-2022 take 1 mL by mouth once Magnesium Citrate 300 ML solution Discontinued 300 mL PO ONE TIME 300 February 15, 2016 12:00am December 09, 2022 2:32pm Start: 02-15-2016 End: 12-09-2022 take 1 mL by mouth once Magnesium Citrate Discontinu ed 300 ML PO ONE TIME 300 February 15, 2016 12:00am December 09, 2022 2:32pm metFORMIN hydrochloride 500 mg oral tablet (20 sources) Biguanide Start: 03-11-2023 End: 04-05-2024 take 1 tablet by mouth twice daily Metformin 500 mg tablet Discontinued 500 mg PO TWICE A DAY March 11, 2023 12:00am April 05, 2024 1:05pm Start: 09-28-2015 End: 12-09-2022 take 1 tablet by mouth twice daily at mealtime Metformin 500 MG tablet Discontinued 500 mg PO TWICE DAILY WITH MEALS September 28, 2015 12:00am December 09, 2022 2:33pm promethazine hydrochloride 25 mg oral tablet (20 sources) Phenothiazine Start: 03-07-2023 End: 08-13-2023 take 1 tablet by mouth three times daily as needed for nausea and vomiting Promethazine 25 mg tablet Discontinued 25 mg PO THREE TIMES A DAY as needed for nausea and vomiting March 07, 2023 5:36pm August 13, 2023 5:09am Start: 02-08-2016 End: 12-09-2022 take 1 tablet by mouth every six hours as needed for nausea Promethazine 25 MG tablet Discontinued 25 mg PO EVERY 6 HOURS NEEDED as needed for Nausea February 08, 2016 12:00am December 09, 2022 2:33pm sucralfate 1000 mg oral tablet (14 sources) Aluminum Complex Start: 11-26-2024 sucralfate 1 g oral tablet Dose : 1 gram(s) = 1 tab(s), Oral, QID, PRN Heartburn, 0 Refill(s) Start Date: 11/26/24 Status: Ordered Repeat number: 1 Start: 03-07-2023 End: 04-05-2024 take 1 tablet by mouth twice daily Sucralfate (Carafate) 1 gram tablet Discontinued 1 g PO TWICE A DAY March 07, 2023 12:00am April 05, 2024 1:05pm Start: 12-14-2022 take 1 g by mouth at bedtime S ucralfate Active 1 GM PO BEFORE MEALS AND AT BEDTIME 120 30 December 14, 2022 12:00am Problems Active Problems Problem Classification Problem Date Documented Da te Episodic/Chronic Acute and unspecified renal failure (15 sources) Acute renal failure syndrome; Translations: [Acute kidney failure, unspecified] 03-11-2023 Episodic Cardiac dysrhythmias (1 source) ECG: sinus tachycardia; Translations: [Tachycardia, unspecified] 11-19-2024 Episodic Diabetes mellitus with complications (1 source) Hyperglycemia due to type 2 diabetes mellitus; Translations: [Type 2 diabetes mellitus with hyperglycemia] 11-19-2024 Chronic Diabetes mellitus without complication (20 sources) Diabetes mellitus; Translations: [Type 2 diabetes mellitus without complications] Onset: 07-24-2024 09-28-2015 Chronic Essential hypertension (14 sources) Hypertensive disorder; Translations: [Essential (primary) hypertension] 12-08-2022 Chronic Fluid and electrolyte disorders (2 sources) Dehydration; Translations: [Dehydration] 11-19-2024 Episodic Gastritis and duodenitis (15 sources) Gastritis; Translations: [Gastritis, unspecified, without bleeding] 12-14-2022 Episodic Gastroduodenal ulcer (except hemorrhage) (15 sources) Ulcer of duodenum; Translations: [Duodenal ulcer, unspecified as acute or chronic, without hemorrhage or perforation] 12-14-2022 Chronic Immunizations and screening for infectious disease (13 sources) Contact with or exposure to other viral diseases; Translations: [Exposure to COVID-19 virus] 03-15-2021 Episodic Noninfectious gastroenteritis (20 sources) Gastroenteritis; Translations: [Noninfective gastroenteritis and colitis, unspecified] 12-09-2022 Episodic Other and unspecified benign neoplasm (12 sources) Polyp of colon; Translations: [Polyp of colon] 12-14-2022 Episodic Other and unspecified benign neoplasm (3 sources) Polyp of colon; Translations: [Benign neoplasm of colon] 12-14-2022 Episodic Other gastrointestinal disorders (8 sources) Constipation; Translations: [Constipation, unspecified] 05-21-2023 Episodic Residual codes; unclassified (13 sources) Obstructive sleep apnea syndrome; Translations: [Obstructive sleep apnea (adult) (pediatric)] 12-08-2022 Chronic Comment on above: CPAP q HS. Spondylosis; intervertebral disc disorders; other back problems (1 source) Sacroiliac joint pain; Translations: [Sacrococcygeal disorders, not elsewhere classified] 06-17-2024 Episodic Viral infection (19 sources) Disease caused by 2019-nCoV; Translations: [COVID-19] 03-01-2023 Episodic Past or Other Problems Problem Classification Problem Date Documented Da te Episodic/Chronic Abdominal pain (20 sources) Recurrent abdominal pain; Translations: [Unspecified abdominal pain] Onset: 04-28-2024 09-28-2015 Episodic Nausea and vomiting (20 sources) Nausea and vomiting; Translations: [Nausea with vomiting, unspecified] Onset: 07-01-2024 12-08-2022 Episodic Results Test Name Value Interpretation Reference Range Facility .Auto Diffon 11-26-2024 Basophil, Absolute 0.0 10 3/mcL Normal 0.0-0.3 [facility] Comment on above: Performed By: #### C BC, ABSGEL, BMP, GFR, ANEU, ADIFF, ABOGEL, ALB #### [address] [address] Basophils/100 WBC (Bld) 0.4 % Normal 0.0-2.5 [facility] Comment on above: Performed By: #### C BC, ABSGEL, BMP, GFR, ANEU, ADIFF, ABOGEL, ALB #### [address] [address] Eosinophil, Absolute 0.0 10 3/mcL Normal 0.0-0.7 [facility] Comment on above: Performed By: #### C BC, ABSGEL, BMP, GFR, ANEU, ADIFF, ABOGEL, ALB #### [address] [address] Eosinophils/100 WBC (Bld) 0.1 % Normal 0.0-6.0 [facility] Comment on above: Performed By: #### C BC, ABSGEL, BMP, GFR, ANEU, ADIFF, ABOGEL, ALB #### [address] [address] Lymphocyte, Absolute 2.2 10 3/mcL Normal 0.9-4.3 [facility] Comment on above: Performed By: #### C BC, ABSGEL, BMP, GFR, ANEU, ADIFF, ABOGEL, ALB #### [address] [address] Lymphocytes/100 WBC (Bld) 21.2 % Normal 20.0-40.0 [facility] Comment on above: Performed By: #### C BC, ABSGEL, BMP, GFR, ANEU, ADIFF, ABOGEL, ALB #### [address] [address] Monocyte, Absolute 1.1 10 3/mcL Normal 0.1-1.4 [facility] Comment on above: Performed By: #### C BC, ABSGEL, BMP, GFR, ANEU, ADIFF, ABOGEL, ALB #### [address] [address] Monocytes/100 WBC (Bld) 10.3 % Normal 2.0-13.0 [facility] Comment on above: Performed By: #### C BC, ABSGEL, BMP, GFR, ANEU, ADIFF, ABOGEL, ALB #### [address] [address] Neutrophils/100 WBC (Bld) 68.0 % Normal 50.0-75.0 [facility] Comment on above: Performed By: #### C BC, ABSGEL, BMP, GFR, ANEU, ADIFF, ABOGEL, ALB #### [address] [address] .GFRon 11-26-2024 Estimated Glomerular Filtration Rate 60 ml/min/1.73sqm Normal [facility] Comment on above: Result Comment: Stages of Chronic Kidney Disease (CKD) Stage Description eGFR(ml/min/1.73 sq.m.) CKD 1 Normal kidney function or >=90 normal kindney function with possible kidney damage (ex. Proteinuria) CKD 2 Kidney damage with mild loss 60-89 of kidney function CKD 3a Mild to moderate loss of kidney 45-59 function CKD 3b Moderate to severe loss of 30-44 of kindey function CKD 4 Severe loss of kidney function 15-29 CKD 5 Kidney failure <15 Note: (go live 2024) the eGFR calculation was updated to the 2020 CKD-EPI creatinine equation without a race factor to calculate the eGFR results. Performed By: #### C BC, ABSGEL, BMP, GFR, ANEU, ADIFF, ABOGEL, ALB #### [address] [address] .NEUABSon 11-26-2024 Neutrophil, Absolute 7.0 10 3/mcL Normal 2.3-8.1 [facility] Comment on above: Performed By: #### C BC, ABSGEL, BMP, GFR, ANEU, ADIFF, ABOGEL, ALB #### [address] [address] ABO/Rh (Gel)on 11-26-2024 ABO/Rh Interp Positive Invalid Interpretation Code [facility] Comment on above: Performed By: #### C BC, ABSGEL, BMP, GFR, ANEU, ADIFF, ABOGEL, ALB #### [address] [address] ABS (Gel)on 11-26-2024 ABSC Interp (Gel) Negative Normal [facility] Comment on above: Performed By: #### C BC, ABSGEL, BMP, GFR, ANEU, ADIFF, ABOGEL, ALB #### [address] [address] ALBon 11-26-2024 Albumin Level 3.6 G/dL Normal 3.4-4.8 [facility] Comment on above: Performed By: #### C BC, ABSGEL, BMP, GFR, ANEU, ADIFF, ABOGEL, ALB #### [address] [address] BMPon 11-26-2024 BUN/Creatinine Ratio 21 ratio Normal 7-27 [facility] Comment on above: Performed By: #### C BC, ABSGEL, BMP, GFR, ANEU, ADIFF, ABOGEL, ALB #### [address] [address] Calcium [Mass/Vol] 9.4 mg/dL Normal 8.4-10.2 [facility] Comment on above: Performed By: #### C BC, ABSGEL, BMP, GFR, ANEU, ADIFF, ABOGEL, ALB #### [address] [address] Chloride [Moles/Vol] 97 mmol/L Low 98-107 [facility] Comment on above: Performed By: #### C BC, ABSGEL, BMP, GFR, ANEU, ADIFF, ABOGEL, ALB #### [address] [address] CO2 [Moles/Vol] 28 mmol/L Normal 23-31 [facility] Comment on above: Performed By: #### C BC, ABSGEL, BMP, GFR, ANEU, ADIFF, ABOGEL, ALB #### [address] [address] Creatinine [Mass/Vol] 1.33 mg/dL High 0.67-1.17 [facility] Comment on above: Performed By: #### C BC, ABSGEL, BMP, GFR, ANEU, ADIFF, ABOGEL, ALB #### [address] [address] Electrolyte Balance 10.0 mEq/L Normal 4.0-15.0 [facility] Comment on above: Performed By: #### C BC, ABSGEL, BMP, GFR, ANEU, ADIFF, ABOGEL, ALB #### [address] [address] Glucose [Mass/Vol] 148 mg/dL High 80-115 [facility] Comment on above: Performed By: #### C BC, ABSGEL, BMP, GFR, ANEU, ADIFF, ABOGEL, ALB #### [address] [address] Potassium [Moles/Vol] 3.7 mmol/L Normal 3.5-5.1 [facility] Comment on above: Performed By: #### C BC, ABSGEL, BMP, GFR, ANEU, ADIFF, ABOGEL, ALB #### [address] [address] Sodium [Moles/Vol] 135 mmol/L Low 136-145 [facility] Comment on above: Performed By: #### C BC, ABSGEL, BMP, GFR, ANEU, ADIFF, ABOGEL, ALB #### [address] [address] Urea nitrogen [Mass/Vol] 28 mg/dL High 7-18 [facility] Comment on above: Performed By: #### C BC, ABSGEL, BMP, GFR, ANEU, ADIFF, ABOGEL, ALB #### [place] [address] CBCon 11-26-2024 Erythrocyte distribution width (RBC) [Ratio] 12.8 % Normal 11.5-15.5 [facility] Comment on above: Order Comment: Pre-A dmission Testing Performed By: #### C BC, ABSGEL, BMP, GFR, ANEU, ADIFF, ABOGEL, ALB #### [place] [id number] Hematocrit (Bld) [Volume fraction] 48.0 % Normal 40.0-52.0 [facility] Comment on above: Order Comment: Pre-A dmission Testing Performed By: #### C BC, ABSGEL, BMP, GFR, ANEU, ADIFF, ABOGEL, ALB #### [address] [address] Hgb 16.7 G/dL Normal 13.0-17.5 [facility] Comment on above: Order Comment: Pre-A dmission Testing Performed By: #### C BC, ABSGEL, BMP, GFR, ANEU, ADIFF, ABOGEL, ALB #### [address] [address] MCH (RBC) [Entitic mass] 31.1 pg Normal 27.0-33.0 [facility] Comment on above: Order Comment: Pre-A dmission Testing Performed By: #### C BC, ABSGEL, BMP, GFR, ANEU, ADIFF, ABOGEL, ALB #### [address] [address] MCHC 34.9 G/dL Normal 32.0-36.0 [facility] Comment on above: Order Comment: Pre-A dmission Testing Performed By: #### C BC, ABSGEL, BMP, GFR, ANEU, ADIFF, ABOGEL, ALB #### [address] [address] MCV (RBC) [Entitic vol] 89.2 fL Normal 81.0-100.0 [facility] Comment on above: Order Comment: Pre-A dmission Testing Performed By: #### C BC, ABSGEL, BMP, GFR, ANEU, ADIFF, ABOGEL, ALB #### [address] [address] Platelet 199 10 3/mcL Normal 150-450 [facility] Comment on above: Order Comment: Pre-A dmission Testing Performed By: #### C BC, ABSGEL, BMP, GFR, ANEU, ADIFF, ABOGEL, ALB #### [address] [address] Platelet mean volume (Bld) [Entitic vol] 9.1 fL Normal 6.4-10.5 [facility] Comment on above: Order Comment: Pre-A dmission Testing Performed By: #### C BC, ABSGEL, BMP, GFR, ANEU, ADIFF, ABOGEL, ALB #### [address] [address] RBC 5.39 10 6/mcL Normal 4.50-6.00 [facility] Comment on above: Order Comment: Pre-A dmission Testing Performed By: #### C BC, ABSGEL, BMP, GFR, ANEU, ADIFF, ABOGEL, ALB #### [address] [address] WBC 10.3 10 3/mcL Normal 4.5-10.8 [facility] Comment on above: Order Comment: Pre-A dmission Testing Performed By: #### C BC, ABSGEL, BMP, GFR, ANEU, ADIFF, ABOGEL, ALB #### [place] [address] [place], [place] [address] LABORATORYOrdered By: Tasha Mcdonough on 11-26-2024 ABO and Rh group Nom (Bld) Blood group A Rh(D) positive Invalid Interpretation Code AO BB Auto SS Blood group antibody screen Ql Negative ABSC (11/26/24 2:12 PM) Normal AO BB Auto SS LABORATORYOrdered By: SYSTEM SYSTEM on 11-26-2024 Albumin BCP dye [Mass/Vol] 3.6 G/dL Normal 3 .4 - 4.8 G/dL AO ADM SS Basophils (Bld) [#/Vol] 0.0 103/mcL Normal 0.0 - 0.3 10^3/mcL AO Workflow SS Basophils/100 WBC (Bld) 0.4 % Normal 0.0 - 2.5 % AO Workflow SS Calcium [Mass/Vol] 9.4 mg/dL Normal 8.4 - 10. 2 mg/dL AO ADM SS Chloride [Moles/Vol] 97 mmol/L Low 98 - 10 7 mmol/L AO ADM SS CO2 [Moles/Vol] 28 mmol/L Normal 23 - 31 mmol/L AO ADM SS Creatinine [Mass/Vol] 1.33 mg/dL High 0.67 - 1.17 mg/dL AO ADM SS Electrolyte Balance 10.0 mEq/L Normal 4.0 - 15 .0 mEq/L AO ADM SS Eosinophil, Absolute 0.0 103/mcL Normal 0.0 - 0 .7 10^3/mcL AO Workflow SS Eosinophils/100 WBC (Bld) 0.1 % Normal 0.0 - 6.0 % AO Workflow SS Erythrocyte distribution width (RBC) [Ratio] 12.8 % Normal 11.5 - 15.5 % AO Workflow SS Estimated Glomerular Filtration Rate 60 ml/min/1.73sqm Invalid Interpretation Code AO Chemistry S Comment on above: Interpretive Data: Stages of Chronic Kidney Disease (CKD) Stage Description eGFR(ml/min/1.73 sq.m.) CKD 1 Normal kidney function or >=90 normal kindney function with possible kidney damage (ex. Proteinuria) CKD 2 Kidney damage with mild loss 60-89 of kidney function CKD 3a Mild to moderate loss of kidney 45-59 function CKD 3b Moderate to severe loss of 30-44 of kindey function CKD 4 Severe loss of kidney function 15-29 CKD 5 Kidney failure <15 Note: (go live 2024) the eGFR calculation was updated to the 2020 CKD-EPI creatinine equation without a race factor to calculate the eGFR results. Glucose [Mass/Vol] 148 mg/dL High 80 - 115 mg/dL AO ADM SS Hematocrit (Bld) [Volume fraction] 48.0 % Normal 40.0 - 52.0 % AO Workflow SS Hemoglobin (Bld) [Mass/Vol] 16.7 G/dL Normal 13.0 - 17.5 G/dL AO Workflow SS Lymphocytes (Bld) [#/Vol] 2.2 103/mcL Normal 0. 9 - 4.3 10^3/mcL AO Workflow SS Lymphocytes/100 WBC (Bld) 21.2 % Normal 20 .0 - 40.0 % AO Workflow SS MCH (RBC) [Entitic mass] 31.1 pg Normal 27. 0 - 33.0 pg AO Workflow SS MCHC 34.9 G/dL Normal 32.0 - 36.0 G/dL AO Workflow SS MCV (RBC) [Entitic vol] 89.2 fL Normal 81.0 - 100.0 fL AO Workflow SS Monocytes (Bld) [#/Vol] 1.1 103/mcL Normal 0.1 - 1.4 10^3/mcL AO Workflow SS Monocytes/100 WBC (Bld) 10.3 % Normal 2.0 - 13.0 % AO Workflow SS Neutrophils (Bld) [#/Vol] 7.0 103/mcL Normal 2. 3 - 8.1 10^3/mcL AO Workflow SS Neutrophils/100 WBC (Bld) 68.0 % Normal 50 .0 - 75.0 % AO Workflow SS Platelet mean volume (Bld) [Entitic vol] 9.1 fL Normal 6.4 - 10.5 fL AO Workflow SS Platelets (Bld) [#/Vol] 199 103/mcL Normal 150 - 450 10^3/mcL AO Workflow SS Potassium [Moles/Vol] 3.7 mmol/L Normal 3.5 - 5.1 mmol/L AO ADM SS RBC (Bld) [#/Vol] 5.39 106/mcL Normal 4.50 - 6.0 0 10^6/mcL AO Workflow SS Sodium [Moles/Vol] 135 mmol/L Low 136 - 145 mmol/L AO ADM SS Urea nitrogen [Mass/Vol] 28 mg/dL High 7 - 18 mg/dL AO ADM SS Urea nitrogen/Creatinine [Mass ratio] 21 ratio Normal 7 - 27 ratio AO ADM SS WBC (Bld) [#/Vol] 10.3 103/mcL Normal 4.5 - 10.8 10^3/mcL AO Workflow SS LABORATORYOrdered By: Kira Harry on 11-26-2024 MRSA (PCR) Not Detected 1 (11/26/24 2:12 PM) Normal Not Detected AH Auto Viro/Sero SS Comment on above: Result Comment: [place] [id number] MRSA PCR Int See Below 2 *NA* (11/26/24 2:12 PM) Invalid Interpretation Code AH Auto Viro/Sero SS Comment on above: Result Comment: Clinical Interpretation: MRSA DNA not detected by Real-Time Polymerase Chain Reaction (PCR). A negative result may be due to intermittent colonization. Colonization may vary depending on patient treatment, patient status, or exposure to high-risk environments. As with all PCR based in vitro diagnostic tests, extremely low levels of target below the limit of detection of the assay may be detected, but results may not be reproducible. Absolute lymphocyte countOrd ered By: ED PROVIDER on 11-19-2024 Lymphocytes Auto (Unsp spec) [#/Vol] 1.08 10*3/uL 0.83-4.51 [facility] Absolute neutrophil countOrd ered By: ED PROVIDER on 11-19-2024 Neutrophils (Bld) [#/Vol] 6.7 10*3/uL 2.0-7.7 [facility] Anion gap in Serum or Plasma Ordered By: ED PROVIDER on 11-19-2024 Anion gap [Moles/Vol] 18 mmol/L High 5-15 [facility] Automated blood erythrocyte countOrdered By: ED PROVIDER on 11-19-2024 RBC (Bld) [#/Vol] 4.92 10*6/uL Normal 4.6-6.2 [facility] Comment on above: Performed By: #### L 500.4050, L100.0100, L501.2450 #### [facility] [address] [place], [address] Automated blood hematocrit ( percentage)Ordered By: ED PROVIDER on 11-19-2024 Hematocrit (Bld) [Volume fraction] 43.6 % Normal 40-54 [facility] Comment on above: Performed By: #### L 500.4050, L100.0100, L501.2450 #### [facility] [address] [place], [address] Automated lymphocyte count a s percentage of total leukocytesOrdered By: ED PROVIDER on 11-19-2024 Lymphocytes/100 WBC Auto (Unsp spec) 13.2 % Low 19-41 [facility] BUN/creatinine ratioOrdered By: ED PROVIDER on 11-19-2024 Urea nitrogen/Creatinine [Mass ratio] 17.3 mg/mg 10-20 [facility] Basophil percentageOrdered B y: ED PROVIDER on 11-19-2024 Basophils/100 WBC (Bld) 0.5 % Normal 0-1 [facility] Comment on above: Performed By: #### L 500.4050, L100.0100, L501.2450 #### [facility] [address] [place], [address] Bilirubin, totalOrdered By: ED PROVIDER on 11-19-2024 Bilirubin [Mass/Vol] 1.36 mg/dL High 0.00-1.30 [facility] Comment on above: Performed By: #### L 500.4050, L100.0100, L501.2450 #### [facility] [address] [place], [address] CBC W/Diff, Automatedon 11-08 Absolute Lymph 1.08 X10 3/uL Normal 0.83-4.51 [facility] Comment on above: Performed By: #### L 500.4050, L100.0100, L501.2450 #### [facility] [address] [place], [address] Absolute Neut 6.7 X10 3/uL Normal 2.0-7.7 [facility] Comment on above: Performed By: #### L 500.4050, L100.0100, L501.2450 #### [facility] [address] [place], [address] IG% 0.500 Normal 0.0-0.9 [facility] Comment on above: Result Comment: IG% - Immature Granulocytes (promyelocytes, myelocytes and metamyelocytes) > 1% indicates that a LEFT SHIFT is Present. Performed By: #### L 500.4050, L100.0100, L501.2450 #### [facility] [address] [place], [address] Lymphocytes/100 WBC (Bld) 13.2 % Low 19-41 [facility] Comment on above: Performed By: #### L 500.4050, L100.0100, L501.2450 #### [facility] [address] [place], [address] Nucleated RBC (Bld) [#/Vol] 0 10*3/uL Normal 0-5 [facility] Comment on above: Performed By: #### L 500.4050, L100.0100, L501.2450 #### [facility] [address] [place], [address] RDW SD 37.7 fl Normal 35.1-43.9 [facility] Comment on above: Performed By: #### L 500.4050, L100.0100, L501.2450 #### [facility] [address] [place], [address] Carbon dioxide, total [Moles /volume] in Central venous bloodOrdered By: ED PROVIDER on 11-19-2024 CO2 [Moles/Vol] 19.6 mmol/L Low 21.0-32.0 [facility] Comment on above: Performed By: #### L 500.4050, L100.0100, L501.2450 #### [facility] [address] [place], [address] Chloride assayOrdered By: ED PROVIDER on 11-19-2024 Chloride [Moles/Vol] 100 mmol/L Normal 98-108 [facility] Comment on above: Performed By: #### L 500.4050, L100.0100, L501.2450 #### [facility] [address] [place], [address] Comprehensive Metabolic Prof ilon 11-19-2024 ALK PHOS 50 U/L Normal 40-129 [facility] Comment on above: Performed By: #### L 500.4050, L100.0100, L501.2450 #### [facility] [address] [place], [address] BUN/CRE 17.3 RATIO Normal 10-20 [facility] Comment on above: Performed By: #### L 500.4050, L100.0100, L501.2450 #### [facility] [address] [place], [address] ECRCL 86.07 ml/min Normal 50-250 [facility] Comment on above: Performed By: #### L 500.4050, L100.0100, L501.2450 #### [facility] [address] [place], [address] GAP 18 High 5-15 [facility] Comment on above: Performed By: #### L 500.4050, L100.0100, L501.2450 #### [facility] [address] [place], [address] Potassium [Moles/Vol] 4.4 mmol/L Normal 3.3-5.1 [facility] Comment on above: Performed By: #### L 500.4050, L100.0100, L501.2450 #### [facility] [address] [place], [address] T PROT 7.4 g/dL Normal 5.9-8.4 [facility] Comment on above: Performed By: #### L 500.4050, L100.0100, L501.2450 #### [facility] [address] [place], [address] Comprehensive Metabolic Prof ilOrdered By: ED PROVIDER on 11-19-2024 AST [Catalytic activity/Vol] 28 U/L Normal <=37 [facility] Comment on above: Performed By: #### L 500.4050, L100.0100, L501.2450 #### [facility] [address] [place], [address] Emergency Department Summary on 11-19-2024 Emergency Department Summary [facility] Medical Records Department [address] [place] [address] Emergency Department Summary 11/19/24 MR#: [id number] Acct: [id number] Name: MORENO VILLEGAS Rep #: [id number] : 1960 64 From: Donavan Crane MD PCP: Dr. Zayra Napier DO Status:REG ER Location: ED ADDENDUM by Dr. Donavan Crane MD on 11/20/24 at 0051 At the time of discharge patient for me that he has not taken his blood pressure meds for the last 2 days because of nausea and vomiting. This in all likelihood explains his elevated blood pressure. And since he is asymptomatic there is no need for urgent lowering of his blood pressure. 11/20/24 0051 Cosigner Signature (if applicable): cc: Dr. Zayra Napier DO * Signed HPI History of Present Illness Chief Complaint: Nausea/Vomiting Detail of Chief Complaint: Patient presents with nausea and vomiting Informant: patient Onset/Context/Timing Onset: Yesterday Context: Sudden Onset Timing: Intermittent Quality: Patient had bilious emesis. He is now having dry heaves. Location: GI Current Severity: Severe Maximum Severity: Severe Worsened by: He states this is due to his colitis. However he has no diarrhea, blood or Relieved by: Nothing Associated Symptoms Associated Symptoms: thirst, dry mouth, orthostatic lightheadedness slight decrease in urine ou Narrative Narrative: Patient is a 64-year-old male presents with 2 days of nausea vomiting. He is now having dry heaves. Initially emesis is bilious. He denied hematemesis or coffee-ground emesis. He complains of some mild central abdominal pain. He denies constipation, diarrhea, black or maroon-colored stool. He denies blood or mucus in his stool. His last bowel movement was formed. He does not feel bloated. He denies cough, shortness of breath or difficulty breathing. He has not had any ill contacts to his knowledge. Patient denies fever, chills night sweats. Nuys weight gain or weight loss. He denies headache, visual, ocular auditory symptoms. He denies cardiac or respiratory symptoms. Prior similar symptoms: Yes Recent Illness/Hospitalizati on: No [facility] Medical History Former tobacco use Obesity GERD (gastroesophageal reflux disease) Hypertension Type 2 diabetes mellitus JUANA (obstructive sleep apnea) Home Medications ???Medication ???Instructions ???Recorded ???Last Taken ???Type pantoprazole 40 mg tablet,delayed 40 mg PO BID 30 days #60 tabs 12/30 Unknown Rx release (Protonix) amlodipine 5 mg tablet 5 mg PO DAILY 04/05/24 Unknown His tory dicyclomine 20 mg tablet 20 mg PO TID #20 tabs 04/05/24 Unk nown Rx insulin glargine 100 unit/mL (3 20 unit subcut DAILY 04/05/24 Unkn own History mL) subcutaneous pen (Basaglar KwikPen U-100 Insulin) ondansetron 4 mg disintegrating 4 mg PO Q8H PRN PRN Nausea #10 tab s 04/05/24 Unknown Rx tablet rosuvastatin 20 mg tablet 20 mg PO DAILY 04/05/24 Unknown Hi story tirzepatide 7.5 mg/0.5 mL 7.5 mg subcut QWEEK 04/05/24 Unkno wn History subcutaneous pen injector (Mounjaro) ondansetron 4 mg disintegrating 4 mg PO Q8H PRN PRN Nausea #10 tab s 06/09/24 Unknown Rx tablet prednisone 20 mg tablet 40 mg (2 x 20 mg) PO DAILY #10 tab s 06/09/24 Unknown Rx Allergy/AdvReac Type Severity Reaction Status Date / Time No Known Allergies Allergy Verified 11/19/24 20:52 Family History Mother Diabetes Heart disease Cancer Father No problems noted. Surgical History History of surgery on lower extremity History of cholecystectomy Social History household members: other details: Notes his son lives with him. Smoking Status: Former smoker alcohol intake: never substance use type: does not use ROS ROS ED Constitutional Constitutional ED: Denies chills, fever(s), subjective, sweats or weight loss Eyes Eyes: Denies blurry vision or change in vision ENT ENT ED: Denies ear pain, rhinorrhea or sore throat Cardiovascular Cardiovascular: Denies chest pain, orthopnea, palpitations, paroxysmal nocturnal dyspnea or racing heartbeat Respiratory/Chest Respiratory/Chest: Denies cough, dyspnea, dyspnea on exertion, orthopnea or paroxysmal nocturnal dyspnea Gastrointestinal Gastrointestinal: Reports abdominal pain, nausea, vomiting and other Details: No hematemesis or coffee-ground emesis. ; Denies constipation, diarrhea or melena Genitourinary Genitourinary ED: Denies dysuria, hematuria or urinary frequency Musculoskeletal Musculoskeletal: Denies arthralgias or myalgias Integumentary Denies abscess, Abrasions or rash Neurologic Neurologic: Reports weaknes (more content not included)... Normal [facility] Eosinophil percentageOrdered By: ED PROVIDER on 11-19-2024 Eosinophils/100 WBC (Bld) 0.0 % Normal 0-5 [facility] Comment on above: Performed By: #### L 500.4050, L100.0100, L501.2450 #### [facility] [address] [place], [address] Erythrocyte distribution wid th ratioOrdered By: ED PROVIDER on 11-19-2024 Erythrocyte distribution width (RBC) [Ratio] 11.8 % Normal 11.6-14.6 [facility] Comment on above: Performed By: #### L 500.4050, L100.0100, L501.2450 #### [facility] [address] [place], [place], [address] Erythrocyte distribution wid th standard deviationOrdered By: ED PROVIDER on 11-19-2024 Erythrocyte distribution width (RBC) [Ratio] 37.7 fl 35.1-43.9 [facility] Glomerular filtration rate ( GFR) estimation/1.73 sq m using serum, plasma, or whole bOrdered By: ED PROVIDER on 11-19-2024 GFR/1.73 sq M.predicted among non-blacks MDRD (S/P/Bld) [Vol rate/Area] 70 mL/min/{1.73_m2} Normal >60 [facility] Comment on above: mL/min/1.73m2 CKD-EP I Creatinine Equation (2020) Result Comment: mL/m in/1.73m2 CKD-EPI Creatinine Equation (2020) Performed By: #### L 500.4050, L100.0100, L501.2450 #### [facility] [address] [place], [place], [id number] Hemoglobin measurementOrdere d By: ED PROVIDER on 11-19-2024 Hemoglobin (Bld) [Mass/Vol] 15.6 g/dL Normal 13.0-16.5 [facility] Comment on above: Performed By: #### L 500.4050, L100.0100, L501.2450 #### [facility] [address] [place], [address] Immature granulocytes/100 WB C Auto (Bld)Ordered By: ED PROVIDER on 11-19-2024 Immature granulocytes/100 WBC (Bld) 0.500 % 0.0-0.9 [facility] Comment on above: IG% - Immature Granu locytes (promyelocytes, myelocytes and metamyelocytes) > 1% indicates that a LEFT SHIFT is Present. Lipase measurementOrdered By : ED PROVIDER on 11-19-2024 Lipase [Catalytic activity/Vol] 36 U/L Normal 13-75 [facility] Comment on above: Please note:LIPASE r evised reference range effective 22. New Lipase methodology. Expected to produce lower values than the previous assay method. NEW Reference Range: 13 - 75 U/L Result Comment: Elisa jenkins note: LIPASE revised reference range effective 22. New Lipase methodology. Expected to produce lower values than the previous assay method. NEW Reference Range: 13 - 75 U/L Performed By: #### L 500.4050, L100.0100, L501.2450 #### [facility] [address] [place], [address] MCV (mean corpuscular volume ) determinationOrdered By: ED PROVIDER on 11-19-2024 MCV (RBC) [Entitic vol] 88.6 fL Normal 80-94 [facility] Comment on above: Performed By: #### L 500.4050, L100.0100, L501.2450 #### [facility] [address] [place], [address] Mean corpuscular hemoglobin (MCH) determinationOrdered By: ED PROVIDER on 11-19-2024 MCH (RBC) [Entitic mass] 31.7 pg Normal 27.0-32.0 [facility] Comment on above: Performed By: #### L 500.4050, L100.0100, L501.2450 #### [facility] [address] [place], [address] Mean corpuscular hemoglobin concentration (MCHC) determinationOrdered By: ED PROVIDER on 11-19-2024 MCHC (RBC) [Mass/Vol] 35.8 g/dL Normal 32-36 [facility] Comment on above: Performed By: #### L 500.4050, L100.0100, L501.2450 #### [facility] [address] [place], [address] Mean platelet volume determi nationOrdered By: ED PROVIDER on 11-19-2024 Platelet mean volume (Bld) [Entitic vol] 10.8 fL Normal 6.2-12.0 [facility] Comment on above: Performed By: #### L 500.4050, L100.0100, L501.2450 #### [facility] [address] [place], [address] Monocyte percentageOrdered B y: ED PROVIDER on 11-19-2024 Monocytes/100 WBC (Bld) 4.0 % Normal 0-10 [facility] Comment on above: Performed By: #### L 500.4050, L100.0100, L501.2450 #### [facility] [address] [place], [address] Neutrophil percentageOrdered By: ED PROVIDER on 11-19-2024 Neutrophils/100 WBC (Bld) 81.8 % High 47-70 [facility] Comment on above: Performed By: #### L 500.4050, L100.0100, L501.2450 #### [facility] [address] [place], [address] Nucleated red blood cell per centageOrdered By: ED PROVIDER on 11-19-2024 Nucleated RBC/100 WBC (Bld) [Ratio] 0 % 0-5 [facility] Platelet countOrdered By: ED PROVIDER on 11-19-2024 Platelets (Bld) [#/Vol] 207 10*3/uL Normal 150-450 [facility] Comment on above: Performed By: #### L 500.4050, L100.0100, L501.2450 #### [facility] [address] [place], [address] Potassium measurement (mass/ volume)Ordered By: ED PROVIDER on 11-19-2024 Potassium (Unsp spec) [Mass/Vol] 4.4 mmol/L 3.3-5.1 [facility] Serum creatinine measurement (mass/volume)Ordered By: ED PROVIDER on 11-19-2024 Creatinine [Mass/Vol] 1.17 mg/dL Normal 0.70-1.20 [facility] Comment on above: Performed By: #### L 500.4050, L100.0100, L501.2450 #### [facility] [address] [place], [address] Serum globulin measurementOr dered By: ED PROVIDER on 11-19-2024 Globulin (S) [Mass/Vol] 2.9 g/dL Normal 2.2-4.2 [facility] Comment on above: Performed By: #### L 500.4050, L100.0100, L501.2450 #### [facility] [address] [place], [address] Serum glucose measurement (m ass/volume)Ordered By: ED PROVIDER on 11-19-2024 Glucose [Mass/Vol] 236 mg/dL High 70-99 [facility] Comment on above: Performed By: #### L 500.4050, L100.0100, L501.2450 #### [facility] [address] [place], [address] Serum or plasma alanine coker otransferase (ALT) measurementOrdered By: ED PROVIDER on 11-19-2024 ALT [Catalytic activity/Vol] 24 U/L Normal <=46 [facility] Comment on above: Performed By: #### L 500.4050, L100.0100, L501.2450 #### [facility] [address] [place], [address] Serum or plasma albumin elaina urement (mass/volume)Ordered By: ED PROVIDER on 11-19-2024 Albumin [Mass/Vol] 4.5 g/dL Normal 3.4-4.8 [facility] Comment on above: Performed By: #### L 500.4050, L100.0100, L501.2450 #### [facility] [address] [place], [address] Serum or plasma albumin/glob ulin mass ratioOrdered By: ED PROVIDER on 11-19-2024 Albumin/Globulin [Mass ratio] 1.5 {ratio} Normal 0.9-2.4 [facility] Comment on above: Performed By: #### L 500.4050, L100.0100, L501.2450 #### [facility] [address] [place], [address] Serum or plasma alkaline andre sphatase measurementOrdered By: ED PROVIDER on 11-19-2024 ALP [Catalytic activity/Vol] 50 U/L 40-129 [facility] Serum or plasma calcium elaina urement (mass/volume)Ordered By: ED PROVIDER on 11-19-2024 Calcium [Mass/Vol] 10.1 mg/dL Normal 7.6-11.0 [facility] Comment on above: Performed By: #### L 500.4050, L100.0100, L501.2450 #### [facility] [address] [place], [address] Serum or plasma urea nitroge n measurement (mass/volume)Ordered By: ED PROVIDER on 11-19-2024 Urea nitrogen [Mass/Vol] 20 mg/dL High 4-19 [facility] Comment on above: Performed By: #### L 500.4050, L100.0100, L501.2450 #### [facility] [address] [place], [address] Sodium levelOrdered By: ED Karlee JOYNER on 11-19-2024 Sodium [Moles/Vol] 138 mmol/L Normal 133-145 [facility] Comment on above: Performed By: #### L 500.4050, L100.0100, L501.2450 #### [facility] [address] [place], [address] Total proteinOrdered By: ED PROVIDER on 11-19-2024 Protein [Mass/Vol] 7.4 g/dL 5.9-8.4 [facility] White blood cell (WBC) count Ordered By: ED PROVIDER on 11-19-2024 WBC (Bld) [#/Vol] 8.2 10*3/uL Normal 4.4-11.0 [facility] Comment on above: Performed By: #### L 500.4050, L100.0100, L501.2450 #### [facility] [address] [place], [place], [address] 12 Lead EKGon 06-09-2024 12 Lead EKG [facility] Cardiovascular Services [address] [place] [address] 12 Lead EKG 06/09/24 1939 MR#: [id number] Acct: [id number] Name: MORENO VILLEGAS Rep #: [id number] : 1960 64 From: Marlon Esquivel MD [...] , age undetermined Abnormal ECG Confirmed by TREVA LYNN, MARLON ([id number]), purchasing expeditor ANAM PELLETIER ([id number]) on 06/11/2024 6:12:56 AM Referred By: Confirmed By: MARLON ESQUIVEL MD 06/11/24 0612 Date Marlon Esquivel MD CC: Dr. Vandana Calhoun DO; Dr. Zayra Napier DO Signed Normal [facility] Abdomen/Pelvis W IV Cont ONL Yon 06-09-2024 Abdomen/Pelvis W IV Cont ONLY [facility] Imaging Services [address] [place] [address] Abdomen/Pelvis W IV Cont ONLY MR#: [id number] Acct: [id number] Name: MORENO VILLEGAS Rep #: [id number] : 1960 M 64 From: Juwan Marroquin DO PCP: Dr. Zayra Napier DO Status: REG ER Study: Abdomen/Pelvis W IV Cont ONLY Date of Exam: Exam# [id number] Ordering Dr: Vandana Calhoun DO [id number] STUDY: CT ABDOMEN AND PELVIS WITH CONTRAST [...] at 21:19 EST , CC: Dr. Vandana Calhoun DO; Dr. Zayra Napier DO Power Plant Technician: Signed Normal [facility] CBC W/Diff, Automatedon 12-3 Absolute Lymph 2.41 X10 3/uL Normal 0.83-4.51 [facility] Comment on above: Performed By: #### L 500.4050, L100.0100, L501.2450 #### [facility] [address] [place], [address] Absolute Neut 5.5 X10 3/uL Normal 2.0-7.7 [facility] Comment on above: Performed By: #### L 500.4050, L100.0100, L501.2450 #### [facility] [address] [place], [address] Basophils/100 WBC (Bld) 0.6 % Normal 0-1 [facility] Comment on above: Performed By: #### L 500.4050, L100.0100, L501.2450 #### [facility] [address] [place], [address] Eosinophils/100 WBC (Bld) 0.1 % Normal 0-5 [facility] Comment on above: Performed By: #### L 500.4050, L100.0100, L501.2450 #### [facility] [address] [place], [address] Erythrocyte distribution width (RBC) [Ratio] 12.1 % Normal 11.6-14.6 [facility] Comment on above: Performed By: #### L 500.4050, L100.0100, L501.2450 #### [facility] [address] [place], [address] Hematocrit (Bld) [Volume fraction] 42.2 % Normal 40-54 [facility] Comment on above: Performed By: #### L 500.4050, L100.0100, L501.2450 #### [facility] [address] [place], [address] Hemoglobin (Bld) [Mass/Vol] 15.1 g/dL Normal 13.0-16.5 [facility] Comment on above: Performed By: #### L 500.4050, L100.0100, L501.2450 #### [facility] [address] [place], [address] IG% 0.300 Normal 0.0-0.9 [facility] Comment on above: Result Comment: IG% - Immature Granulocytes (promyelocytes, myelocytes and metamyelocytes) > 1% indicates that a LEFT SHIFT is Present. Performed By: #### L 500.4050, L100.0100, L501.2450 #### [facility] [address] [place], [address] Lymphocytes/100 WBC (Bld) 27.3 % Normal 19-41 [facility] Comment on above: Performed By: #### L 500.4050, L100.0100, L501.2450 #### [facility] [address] [place], [address] MCH (RBC) [Entitic mass] 31.5 pg Normal 27.0-32.0 [facility] Comment on above: Performed By: #### L 500.4050, L100.0100, L501.2450 #### [facility] [address] [place], [address] MCHC (RBC) [Mass/Vol] 35.8 g/dL Normal 32-36 [facility] Comment on above: Performed By: #### L 500.4050, L100.0100, L501.2450 #### [facility] [address] [place], [address] MCV (RBC) [Entitic vol] 88.1 fL Normal 80-94 [facility] Comment on above: Performed By: #### L 500.4050, L100.0100, L501.2450 #### [facility] [address] [place], [address] Monocytes/100 WBC (Bld) 9.8 % Normal 0-10 [facility] Comment on above: Performed By: #### L 500.4050, L100.0100, L501.2450 #### [facility] [address] [place], [address] Neutrophils/100 WBC (Bld) 61.9 % Normal 47-70 [facility] Comment on above: Performed By: #### L 500.4050, L100.0100, L501.2450 #### [facility] [address] [place], [address] Nucleated RBC (Bld) [#/Vol] 0 10*3/uL Normal 0-5 [facility] Comment on above: Performed By: #### L 500.4050, L100.0100, L501.2450 #### [facility] [address] [place], [address] Platelet mean volume (Bld) [Entitic vol] 10.8 fL Normal 6.2-12.0 [facility] Comment on above: Performed By: #### L 500.4050, L100.0100, L501.2450 #### [facility] [address] [place], [address] Platelets (Bld) [#/Vol] 201 10*3/uL Normal 150-450 [facility] Comment on above: Performed By: #### L 500.4050, L100.0100, L501.2450 #### [facility] [address] [place], [address] RBC (Bld) [#/Vol] 4.79 10*6/uL Normal 4.6-6.2 [facility] Comment on above: Performed By: #### L 500.4050, L100.0100, L501.2450 #### [facility] [address] [place], [address] RDW SD 39.2 fl Normal 35.1-43.9 [facility] Comment on above: Performed By: #### L 500.4050, L100.0100, L501.2450 #### [facility] [address] [place], [address] WBC (Bld) [#/Vol] 8.8 10*3/uL Normal 4.4-11.0 [facility] Comment on above: Performed By: #### L 500.4050, L100.0100, L501.2450 #### [facility] [address] [place], [address] Comprehensive Metabolic [facility] 06-09-2024 Albumin [Mass/Vol] 3.7 g/dL Normal 3.2-5.0 [facility] Comment on above: Performed By: #### L 500.4050, L100.0100, L501.2450 ####[facility] [address] [place], [address] Albumin/Globulin [Mass ratio] 1.2 {ratio} Normal 0.9-2.4 [facility] Comment on above: Performed By: #### L 500.4050, L100.0100, L501.2450 ####[facility] [address] [place], [address] ALK P 41 U/L Low 45-117 [facility] Comment on above: Performed By: #### L 500.4050, L100.0100, L501.2450 ####[facility] [address] [place], [address] ALT [Catalytic activity/Vol] 25 U/L Normal 16-61 [facility] Comment on above: Performed By: #### L 500.4050, L100.0100, L501.2450 ####[facility] [address] [place], [address] AST [Catalytic activity/Vol] 13 U/L Low 15-37 [facility] Comment on above: Performed By: #### L 500.4050, L100.0100, L501.2450 ####[facility] [address] [place], [address] Bilirubin [Mass/Vol] 1.50 mg/dL High 0.20-1.00 [facility] Comment on above: Result Comment: For patients on eltrombopag therapy, use of Dimension Sassafras TBIL is not recommended. Performed By: #### L 500.4050, L100.0100, L501.2450 ####[facility] [address] [place], [address] BUN/CRE 29.7 RATIO High 10-20 [facility] Comment on above: Performed By: #### L 500.4050, L100.0100, L501.2450 ####[facility] [address] [place], [address] CA,Total 9.6 mg/dL Normal 8.5-10.1 [facility] Comment on above: Performed By: #### L 500.4050, L100.0100, L501.2450 ####[facility] [address] [place], [address] Chloride [Moles/Vol] 101 mmol/L Normal 98-107 [facility] Comment on above: Performed By: #### L 500.4050, L100.0100, L501.2450 ####[facility] [address] [place], [address] CO2 [Moles/Vol] 27.0 mmol/L Normal 21.0-32.0 [facility] Comment on above: Performed By: #### L 500.4050, L100.0100, L501.2450 ####[facility] [address] [place], [address] Creatinine [Mass/Vol] 1.28 mg/dL Normal 0.70-1.30 [facility] Comment on above: Result Comment: The validity of the calculated GFR GFRAA in patients over 70 years has not been determined. Clinical correlation is essential. Performed By: #### L 500.4050, L100.0100, L501.2450 ####[facility] [address] [place], [address] ECRCL 75.65 ml/min Normal [facility] Comment on above: Performed By: #### L 500.4050, L100.0100, L501.2450 ####[facility] [address] [place], [address] EST GFR - AA 73 mL/min Normal >60 [facility] Comment on above: Result Comment: Afri can Malawian GFR Calc Performed By: #### L 500.4050, L100.0100, L501.2450 ####[facility] [address] [place], [address] GAP 7 Normal 5-15 [facility] Comment on above: Performed By: #### L 500.4050, L100.0100, L501.2450 ####[facility] [address] [place], [address] GFR/1.73 sq M.predicted among non-blacks MDRD (S/P/Bld) [Vol rate/Area] 60 mL/min/{1.73_m2} Normal >60 [facility] Comment on above: Result Comment: Non- GFR Calc Performed By: #### L 500.4050, L100.0100, L501.2450 ####[facility] [address] [place], [address] Globulin (S) [Mass/Vol] 3.2 g/dL Normal 2.2-4.2 [facility] Comment on above: Performed By: #### L 500.4050, L100.0100, L501.2450 ####[facility] [address] [place], [address] Glucose [Mass/Vol] 155 mg/dL High 74-106 [facility] Comment on above: Result Comment: Fast ing Glucose result greater than or equal to 126 mg/dL suggests DIABETES MELLITUS per A.D.A. criteria. Performed By: #### L 500.4050, L100.0100, L501.2450 ####[facility] [address] [place], [address] Potassium [Moles/Vol] 3.7 mmol/L Normal 3.5-5.1 [facility] Comment on above: Performed By: #### L 500.4050, L100.0100, L501.2450 ####[facility] [address] [place], [address] Sodium [Moles/Vol] 135 mmol/L Low 136-145 [facility] Comment on above: Performed By: #### L 500.4050, L100.0100, L501.2450 ####[facility] [address] [place], [address] T PROT 6.9 g/dL Normal 6.4-8.2 [facility] Comment on above: Performed By: #### L 500.4050, L100.0100, L501.2450 ####[facility] [address] [place], [address] Urea nitrogen [Mass/Vol] 38 mg/dL High 7-18 [facility] Comment on above: Performed By: #### L 500.4050, L100.0100, L501.2450 ####[facility] [address] [place], [address] Emergency Department Summary on 06-09-2024 Emergency Department Summary [facility] Medical Records Department [address] [place] [address] Emergency Department Summary 06/09/24 MR#: [id number] Acct: [id number] Name: MORENO VILLEGAS Rep #: [id number] : 1960 64 From: Vandana Calhoun DO [...] Cosigner Signature (if applicable): cc: Dr. Zayra Napier, * Signed HPI History of Present Illness [...] complaints or concerns reported at this time [facility] Medical History Former tobacco use [...] 04/05/24 Unknown History subcutaneous pen injector (Mounjaro) ondansetron 4 mg disintegrating 4 mg PO [...] Neurologic Neurologic: Denies paresthesias or weakness Hematologic/Lymphatic Hematologic/Lymphatic : Denies easy bleeding or easy bruising EXAM [...] Respiratory Ra (more content not included)... Normal [facility] Lipaseon 06-09-2024 Lipase [Catalytic activity/Vol] 124 U/L High 13-75 [facility] Comment on above: Result Comment: Elisa jenkins note: LIPASE revised reference range effective 22. New Lipase methodology. Expected to produce lower values than the previous assay method. NEW Reference Range: 13 - 75 U/L Performed By: #### L 500.4050, L100.0100, L501.2450 ####[facility] [address] [place], [address] Magnesiumon 06-09-2024 Magnesium [Mass/Vol] 2.0 mg/dL Normal 1.6-2.6 [facility] Comment on above: Performed By: #### L 501.5200 ####[facility] [address] [place], [address] Urinalysis, Completeon 06-09 Mucus Ql (Urine sed) 1+ /hpf Normal [facility] Comment on above: Order Comment: CLEAN CATCH Performed By: #### L 400.0001 ####[facility] [address] [place], [address] WBC 0-5 SEEN Normal 0-5 [facility] Comment on above: Order Comment: CLEAN CATCH Performed By: #### L 400.0001 ####[facility] [address] [place], [address] BACTERIA 0 SEEN Normal None Seen [facility] Comment on above: Order Comment: CLEAN CATCH Performed By: #### L 400.0001 ####[facility] [address] [place], [address] EPI,SQUAMOUS 0 SEEN Normal 0-5 [facility] Comment on above: Order Comment: CLEAN CATCH Performed By: #### L 400.0001 ####[facility] [address] [place], [address] RBC 0 SEEN Normal 0-5 [facility] Comment on above: Order Comment: CLEAN CATCH Performed By: #### L 400.0001 ####[facility] [address] [place], [address] CBC W/Diff, Automatedon 10-3 -2023 Absolute Lymph 1.54 X10 3/uL Normal 0.83-4.51 [facility] Comment on above: Performed By: #### L 100.0100, L500.4050 ####[facility] [address] [place], [address] Absolute Neut 6.4 X10 3/uL Normal 2.0-7.7 [facility] Comment on above: Performed By: #### L 100.0100, L500.4050 ####[facility] [address] [place], [address] Basophils/100 WBC (Bld) 0.8 % Normal 0-1 [facility] Comment on above: Performed By: #### L 100.0100, L500.4050 ####[facility] [address] [place], [address] Eosinophils/100 WBC (Bld) 0.1 % Normal 0-5 [facility] Comment on above: Performed By: #### L 100.0100, L500.4050 ####[facility] [address] [place], [address] Erythrocyte distribution width (RBC) [Ratio] 11.8 % Normal 11.6-14.6 [facility] Comment on above: Performed By: #### L 100.0100, L500.4050 ####[facility] [address] [place], [address] Hematocrit (Bld) [Volume fraction] 44.0 % Normal 40-54 [facility] Comment on above: Performed By: #### L 100.0100, L500.4050 ####[facility] [address] [place], [address] Hemoglobin (Bld) [Mass/Vol] 15.8 g/dL Normal 13.0-16.5 [facility] Comment on above: Performed By: #### L 100.0100, L500.4050 ####[facility] [address] [place], [address] IG% 0.500 Normal 0.0-0.9 [facility] Comment on above: Result Comment: IG% - Immature Granulocytes (promyelocytes, myelocytes and metamyelocytes) > 1% indicates that a LEFT SHIFT is Present. Performed By: #### L 100.0100, L500.4050 ####[facility] [address] [place], [address] Lymphocytes/100 WBC (Bld) 17.4 % Low 19-41 [facility] Comment on above: Performed By: #### L 100.0100, L500.4050 ####[facility] [address] [place], [address] MCH (RBC) [Entitic mass] 32.0 pg Normal 27.0-32.0 [facility] Comment on above: Performed By: #### L 100.0100, L500.4050 ####[facility] [address] [place], [address] MCHC (RBC) [Mass/Vol] 35.9 g/dL Normal 32-36 [facility] Comment on above: Performed By: #### L 100.0100, L500.4050 ####[facility] [address] [place], [address] MCV (RBC) [Entitic vol] 89.1 fL Normal 80-94 [facility] Comment on above: Performed By: #### L 100.0100, L500.4050 ####[facility] [address] [place], [address] Monocytes/100 WBC (Bld) 9.0 % Normal 0-10 [facility] Comment on above: Performed By: #### L 100.0100, L500.4050 ####[facility] [address] [place], [address] Neutrophils/100 WBC (Bld) 72.2 % High 47-70 [facility] Comment on above: Performed By: #### L 100.0100, L500.4050 ####[facility] [address] [place], [address] Nucleated RBC (Bld) [#/Vol] 0 10*3/uL Normal 0-5 [facility] Comment on above: Performed By: #### L 100.0100, L500.4050 ####[facility] [address] [place], [address] Platelet mean volume (Bld) [Entitic vol] 11.0 fL Normal 6.2-12.0 [facility] Comment on above: Performed By: #### L 100.0100, L500.4050 ####[facility] [address] [place], [address] Platelets (Bld) [#/Vol] 220 10*3/uL Normal 150-450 [facility] Comment on above: Performed By: #### L 100.0100, L500.4050 ####[facility] [address] [place], [address] RBC (Bld) [#/Vol] 4.94 10*6/uL Normal 4.6-6.2 [facility] Comment on above: Performed By: #### L 100.0100, L500.4050 ####[facility] [address] [place], [address] RDW SD 38.2 fl Normal 35.1-43.9 [facility] Comment on above: Performed By: #### L 100.0100, L500.4050 ####[facility] [address] [place], [address] WBC (Bld) [#/Vol] 8.8 10*3/uL Normal 4.4-11.0 [facility] Comment on above: Performed By: #### L 100.0100, L500.4050 ####[facility] [address] [place], [address] Comprehensive Metabolic Prof [facility] 04-09-2024 Albumin [Mass/Vol] 4.0 g/dL Normal 3.2-5.0 [facility] Comment on above: Performed By: #### L 100.0100, L500.4050 ####[facility] [address] [place], [address] Albumin/Globulin [Mass ratio] 1.1 {ratio} Normal 0.9-2.4 [facility] Comment on above: Performed By: #### L 100.0100, L500.4050 ####[facility] [address] [place], [address] ALK P 44 U/L Low 45-117 [facility] Comment on above: Performed By: #### L 100.0100, L500.4050 ####[facility] [address] [place], [address] ALT [Catalytic activity/Vol] 25 U/L Normal 16-61 [facility] Comment on above: Performed By: #### L 100.0100, L500.4050 ####[facility] [address] [place], [address] AST [Catalytic activity/Vol] 18 U/L Normal 15-37 [facility] Comment on above: Performed By: #### L 100.0100, L500.4050 ####[facility] [address] [place], [address] Bilirubin [Mass/Vol] 1.50 mg/dL High 0.20-1.00 [facility] Comment on above: Result Comment: For patients on eltrombopag therapy, use of Dimension Sassafras TBIL is not recommended. Performed By: #### L 100.0100, L500.4050 ####[facility] [address] [place], [address] BUN/CRE 20.5 RATIO High 10-20 [facility] Comment on above: Performed By: #### L 100.0100, L500.4050 ####[facility] [address] [place], [address] CA,Total 9.9 mg/dL Normal 8.5-10.1 [facility] Comment on above: Performed By: #### L 100.0100, L500.4050 ####[facility] [address] [place], [address] Chloride [Moles/Vol] 102 mmol/L Normal 98-107 [facility] Comment on above: Performed By: #### L 100.0100, L500.4050 ####[facility] [address] [place], [address] CO2 [Moles/Vol] 24.0 mmol/L Normal 21.0-32.0 [facility] Comment on above: Performed By: #### L 100.0100, L500.4050 ####[facility] [address] [place], [address] Creatinine [Mass/Vol] 1.51 mg/dL High 0.70-1.30 [facility] Comment on above: Result Comment: The validity of the calculated GFR GFRAA in patients over 70 years has not been determined. Clinical correlation is essential. Performed By: #### L 100.0100, L500.4050 ####[facility] [address] [place], [address] EST GFR - AA 60 mL/min Normal >60 [facility] Comment on above: Result Comment: Afri can Malawian GFR Calc Performed By: #### L 100.0100, L500.4050 ####[facility] [address] [place], [address] GAP 8 Normal 5-15 [facility] Comment on above: Performed By: #### L 100.0100, L500.4050 ####[facility] [address] [place], [address] GFR/1.73 sq M.predicted among non-blacks MDRD (S/P/Bld) [Vol rate/Area] 50 mL/min/{1.73_m2} Low >60 [facility] Comment on above: Result Comment: Non- GFR Calc Performed By: #### L 100.0100, L500.4050 ####[facility] [address] [place], [address] Globulin (S) [Mass/Vol] 3.8 g/dL Normal 2.2-4.2 [facility] Comment on above: Performed By: #### L 100.0100, L500.4050 ####[facility] [address] [place], [address] Glucose [Mass/Vol] 189 mg/dL High 74-106 [facility] Comment on above: Result Comment: Fast ing Glucose result greater than or equal to 126 mg/dL suggests DIABETES MELLITUS per A.D.A. criteria. Performed By: #### L 100.0100, L500.4050 ####[facility] [address] [place], [address] Potassium [Moles/Vol] 4.0 mmol/L Normal 3.5-5.1 [facility] Comment on above: Performed By: #### L 100.0100, L500.4050 ####[facility] [address] [place], [address] Sodium [Moles/Vol] 134 mmol/L Low 136-145 [facility] Comment on above: Performed By: #### L 100.0100, L500.4050 ####[facility] [address] [place], [address] T PROT 7.8 g/dL Normal 6.4-8.2 [facility] Comment on above: Performed By: #### L 100.0100, L500.4050 ####[facility] [address] [place], [address] Urea nitrogen [Mass/Vol] 31 mg/dL High 7-18 [facility] Comment on above: Performed By: #### L 100.0100, L500.4050 ####[facility] [address] [place], [address] Abdomen/Pelvis W IV Cont ONL Yon 04-05-2024 Abdomen/Pelvis W IV Cont ONLY [facility] Imaging Services [address] [place] [address] Abdomen/Pelvis W IV Cont ONLY MR#: [id number] Acct: [id number] Name: MORENO VILLEGAS Yamilet Rep #: [id number] : 1960 M Edel From: Andres Omer PCP: Dr. Zayra Napier, DO Status: REG ER Study: Abdomen/Pelvis W IV Cont ONLY Date of Exam: Exam# [id number] Ordering Dr: David Barrett FLIGHT OPERATIONS COORDINATOR-C [id number] STUDY: CT Abdomen And Pelvis W/ Contrast Injection 04/05/2024 2:11 PM REASON FOR EXAM: Male, 64 years old. Abdominal pain abdominal pain Individualized dose optimization techniques were used for this CT. COMPARISON: 10.11.23 TECHNIQUE: CT Abdomen And Pelvis W/ Contrast [...] CC: MARIS Barrett; Dr. Zayra Napier DO Power Plant Technician: Signed Normal [facility] CBC W/Diff, Automatedon 10-2 Absolute Lymph 1.01 X10 3/uL Normal 0.83-4.51 [facility] Comment on above: Performed By: #### L 501.2450, L100.0100, L500.4050 ####[facility] [address] [place], [address] Absolute Neut 5.7 X10 3/uL Normal 2.0-7.7 [facility] Comment on above: Performed By: #### L 501.2450, L100.0100, L500.4050 ####[facility] [address] [place], [address] Basophils/100 WBC (Bld) 0.7 % Normal 0-1 [facility] Comment on above: Performed By: #### L 501.2450, L100.0100, L500.4050 ####[facility] [address] [place], [address] Eosinophils/100 WBC (Bld) 0.0 % Normal 0-5 [facility] Comment on above: Performed By: #### L 501.2450, L100.0100, L500.4050 ####[facility] [address] [place], [address] Erythrocyte distribution width (RBC) [Ratio] 11.7 % Normal 11.6-14.6 [facility] Comment on above: Performed By: #### L 501.2450, L100.0100, L500.4050 ####[facility] [address] [place], [address] Hematocrit (Bld) [Volume fraction] 40.4 % Normal 40-54 [facility] Comment on above: Performed By: #### L 501.2450, L100.0100, L500.4050 ####[facility] [address] [place], [address] Hemoglobin (Bld) [Mass/Vol] 14.1 g/dL Normal 13.0-16.5 [facility] Comment on above: Performed By: #### L 501.2450, L100.0100, L500.4050 ####[facility] [address] [place], [address] IG% 0.400 Normal 0.0-0.9 [facility] Comment on above: Result Comment: IG% - Immature Granulocytes (promyelocytes, myelocytes and metamyelocytes) > 1% indicates that a LEFT SHIFT is Present. Performed By: #### L 501.2450, L100.0100, L500.4050 ####[facility] [address] [place], [address] Lymphocytes/100 WBC (Bld) 14.0 % Low 19-41 [facility] Comment on above: Performed By: #### L 501.2450, L100.0100, L500.4050 ####[facility] [address] [place], [address] MCH (RBC) [Entitic mass] 31.3 pg Normal 27.0-32.0 [facility] Comment on above: Performed By: #### L 501.2450, L100.0100, L500.4050 ####[facility] [address] [place], [address] MCHC (RBC) [Mass/Vol] 34.9 g/dL Normal 32-36 [facility] Comment on above: Performed By: #### L 501.2450, L100.0100, L500.4050 ####[facility] [address] [place], [address] MCV (RBC) [Entitic vol] 89.6 fL Normal 80-94 [facility] Comment on above: Performed By: #### L 501.2450, L100.0100, L500.4050 ####[facility] [address] [place], [address] Monocytes/100 WBC (Bld) 5.8 % Normal 0-10 [facility] Comment on above: Performed By: #### L 501.2450, L100.0100, L500.4050 ####[facility] [address] [place], [address] Neutrophils/100 WBC (Bld) 79.1 % High 47-70 [facility] Comment on above: Performed By: #### L 501.2450, L100.0100, L500.4050 ####[facility] [address] [place], [address] Nucleated RBC (Bld) [#/Vol] 0 10*3/uL Normal 0-5 [facility] Comment on above: Performed By: #### L 501.2450, L100.0100, L500.4050 ####[facility] [address] [place], [address] Platelet mean volume (Bld) [Entitic vol] 10.4 fL Normal 6.2-12.0 [facility] Comment on above: Performed By: #### L 501.2450, L100.0100, L500.4050 ####[facility] [address] [place], [address] Platelets (Bld) [#/Vol] 193 10*3/uL Normal 150-450 [facility] Comment on above: Performed By: #### L 501.2450, L100.0100, L500.4050 ####[facility] [address] [place], [address] RBC (Bld) [#/Vol] 4.51 10*6/uL Low 4.6-6.2 [facility] Comment on above: Performed By: #### L 501.2450, L100.0100, L500.4050 ####[facility] [address] [place], [address] RDW SD 38.0 fl Normal 35.1-43.9 [facility] Comment on above: Performed By: #### L 501.2450, L100.0100, L500.4050 ####[facility] [address] [place], [address] WBC (Bld) [#/Vol] 7.2 10*3/uL Normal 4.4-11.0 [facility] Comment on above: Performed By: #### L 501.2450, L100.0100, L500.4050 ####[facility] [address] [place], [address] Comprehensive Metabolic Prof ilon 04-05-2024 Albumin [Mass/Vol] 4.0 g/dL Normal 3.2-5.0 [facility] Comment on above: Performed By: #### L 501.2450, L100.0100, L500.4050 ####[facility] [address] [place], [address] Albumin/Globulin [Mass ratio] 1.1 {ratio} Normal 0.9-2.4 [facility] Comment on above: Performed By: #### L 501.2450, L100.0100, L500.4050 ####[facility] [address] [place], [address] ALK P 44 U/L Low 45-117 [facility] Comment on above: Performed By: #### L 501.2450, L100.0100, L500.4050 ####[facility] [address] [place], [address] ALT [Catalytic activity/Vol] 31 U/L Normal 16-61 [facility] Comment on above: Performed By: #### L 501.2450, L100.0100, L500.4050 ####[facility] [address] [place], [address] AST [Catalytic activity/Vol] 26 U/L Normal 15-37 [facility] Comment on above: Performed By: #### L 501.2450, L100.0100, L500.4050 ####[facility] [address] [place], [address] Bilirubin [Mass/Vol] 1.10 mg/dL High 0.20-1.00 [facility] Comment on above: Result Comment: For patients on eltrombopag therapy, use of Dimension Sassafras TBIL is not recommended. Performed By: #### L 501.2450, L100.0100, L500.4050 ####[facility] [address] [place], [address] BUN/CRE 16.0 RATIO Normal 10-20 [facility] Comment on above: Performed By: #### L 501.2450, L100.0100, L500.4050 ####[facility] [address] [place], [address] CA,Total 9.7 mg/dL Normal 8.5-10.1 [facility] Comment on above: Performed By: #### L 501.2450, L100.0100, L500.4050 ####[facility] [address] [place], [address] Chloride [Moles/Vol] 108 mmol/L High 98-107 [facility] Comment on above: Performed By: #### L 501.2450, L100.0100, L500.4050 ####[facility] [address] [place], [address] CO2 [Moles/Vol] 25.0 mmol/L Normal 21.0-32.0 [facility] Comment on above: Performed By: #### L 501.2450, L100.0100, L500.4050 ####[facility] [address] [place], [address] Creatinine [Mass/Vol] 1.06 mg/dL Normal 0.70-1.30 [facility] Comment on above: Result Comment: The validity of the calculated GFR GFRAA in patients over 70 years has not been determined. Clinical correlation is essential. Performed By: #### L 501.2450, L100.0100, L500.4050 ####[facility] [address] [place], [address] ECRCL 93.73 ml/min Normal [facility] Comment on above: Performed By: #### L 501.2450, L100.0100, L500.4050 ####[facility] [address] [place], [address] EST GFR - AA 91 mL/min Normal >60 [facility] Comment on above: Result Comment: Afri can Malawian GFR Calc Performed By: #### L 501.2450, L100.0100, L500.4050 ####[facility] [address] [place], [address] GAP 6 Normal 5-15 [facility] Comment on above: Performed By: #### L 501.2450, L100.0100, L500.4050 ####[facility] [address] [place], [address] GFR/1.73 sq M.predicted among non-blacks MDRD (S/P/Bld) [Vol rate/Area] 75 mL/min/{1.73_m2} Normal >60 [facility] Comment on above: Result Comment: Non- GFR Calc Performed By: #### L 501.2450, L100.0100, L500.4050 ####[facility] [address] [place], [address] Globulin (S) [Mass/Vol] 3.6 g/dL Normal 2.2-4.2 [facility] Comment on above: Performed By: #### L 501.2450, L100.0100, L500.4050 ####[facility] [address] [place], [address] Glucose [Mass/Vol] 216 mg/dL High 74-106 [facility] Comment on above: Result Comment: Gluc ose result greater than or equal to 200 mg/dL suggests DIABETES MELLITUS per A.D.A. criteria. Performed By: #### L 501.2450, L100.0100, L500.4050 ####[facility] [address] [place], [address] Potassium [Moles/Vol] 4.1 mmol/L Normal 3.5-5.1 [facility] Comment on above: Performed By: #### L 501.2450, L100.0100, L500.4050 ####[facility] [address] [place], [address] Sodium [Moles/Vol] 139 mmol/L Normal 136-145 [facility] Comment on above: Performed By: #### L 501.2450, L100.0100, L500.4050 ####[facility] [address] [place], [address] T PROT 7.6 g/dL Normal 6.4-8.2 [facility] Comment on above: Performed By: #### L 501.2450, L100.0100, L500.4050 ####[facility] [address] [place], [address] Urea nitrogen [Mass/Vol] 17 mg/dL Normal 7-18 [facility] Comment on above: Performed By: #### L 501.2450, L100.0100, L500.4050 ####[facility] [address] [place], [address] Emergency Department Summary on 04-05-2024 Emergency Department Summary [facility] Medical Records Department [address] [place] [address] Emergency Department Summary 04/05/24 MR#: [id number] Acct: [id number] Name: MORENO VILLEGAS Rep #: [id number] : 1960 64 From: Ej Elliott MD [...] did have a cholecystectomy multiple years ago. [facility] Medical History Former tobacco use [...] / Time No Known Allergies Allergy Verified 10/27/24 12:36 Family History Mother Diabetes Heart disease [...] Room Air (more content not included)... Normal [facility] Lipaseon 04-05-2024 Lipase [Catalytic activity/Vol] 77 U/L High 13-75 [facility] Comment on above: Result Comment: Elisa jenkins note: LIPASE revised reference range effective 22. New Lipase methodology. Expected to produce lower values than the previous assay method. NEW Reference Range: 13 - 75 U/L Performed By: #### L 501.2450, L100.0100, L500.4050 ####[facility] [address] [place] [address] Urinalysis, Completeon 04-05 BACTERIA 1+ /hpf Normal None Seen [facility] Comment on above: Order Comment: CLEAN CATCH Performed By: #### L 400.0001 ####[facility] [address] [place] [address] CAST,HYALINE 0-5 SEEN Normal 0-5 [facility] Comment on above: Order Comment: CLEAN CATCH Performed By: #### L 400.0001 ####[facility] [address] [place] [address] RBC 0-5 SEEN Normal 0-5 [facility] Comment on above: Order Comment: CLEAN CATCH Performed By: #### L 400.0001 ####[facility] [address] [place] [id number] WBC 5-10 SEEN Normal 0-5 [facility] Comment on above: Order Comment: CLEAN CATCH Performed By: #### L 400.0001 ####[facility] [address] [place] [id number] BILIRUBIN URINE Negative Normal Negative [facility] Comment on above: Order Comment: CLEAN CATCH Performed By: #### L 400.0001 ####[facility] [address] [place], [address] Clarity (U) Clear Normal Clear [facility] Comment on above: Order Comment: CLEAN CATCH Performed By: #### L 400.0001 ####[facility] [address] [place] [id number] Color (U) Straw Normal Yellow [facility] Comment on above: Order Comment: CLEAN CATCH Performed By: #### L 400.0001 ####[facility] [address] [place] [address] GLUCOSE, UR 100 mg/dl Abnormal Normal [facility] Comment on above: Order Comment: CLEAN CATCH Performed By: #### L 400.0001 ####[facility] [address] [place] [address] KETONE UR 15 mg/dl Abnormal Negative [facility] Comment on above: Order Comment: CLEAN CATCH Performed By: #### L 400.0001 ####[facility] [address] [place] [address] LEUK ESTERASE Negative Normal Negative [facility] Comment on above: Order Comment: CLEAN CATCH Performed By: #### L 400.0001 ####[facility] [address] [place] [address] Nitrite Ql (U) Negative Normal Negative [facility] Comment on above: Order Comment: CLEAN CATCH Performed By: #### L 400.0001 ####[facility] [address] [place], [address] OCCULT BLOOD-UR 25 /ul Abnormal Negative [facility] Comment on above: Order Comment: CLEAN CATCH Performed By: #### L 400.0001 ####[facility] [address] [place], [address] pH UR 7.0 Normal 5.0 - 8.0 [facility] Comment on above: Order Comment: CLEAN CATCH Performed By: #### L 400.0001 ####[facility] [address] [place], [address] PROT DIPSTX 500 mg/dl Abnormal Negative [facility] Comment on above: Order Comment: CLEAN CATCH Performed By: #### L 400.0001 ####[facility] [address] [place], [address] SP.GR. DIPSTX 1.010 Normal 1.002-1.030 [facility] Comment on above: Order Comment: CLEAN CATCH Performed By: #### L 400.0001 ####[facility] [address] [place], [address] UROBILI Normal Normal Normal [facility] Comment on above: Order Comment: CLEAN CATCH Performed By: #### L 400.0001 ####[facility] [address] [place], [address] EPI,SQUAMOUS 0 SEEN Normal 0-5 [facility] Comment on above: Order Comment: CLEAN CATCH Performed By: #### L 400.0001 ####[facility] [address] [place], [address] Mucus Ql (Urine sed) 0 SEEN Normal [facility] Comment on above: Order Comment: CLEAN CATCH Performed By: #### L 400.0001 ####[facility] [address] [place], [address] Basophil percentageOrdered B y: Zayra Napier on 10-04-2023 Bilirubin [Mass/Vol] 1.30 mg/dL 0.20-1.00 [facility] Comment on above: For patients on eltr ombopag therapy, use of Dimension Sassafras TBIL is not recommended. Chloride [Moles/Vol] 101 mmol/L 98-107 [facility] Glucose [Mass/Vol] 165 mg/dL 74-106 [facility] Comment on above: Fasting Glucose resu lt greater than or equal to 126 mg/dL suggests DIABETES MELLITUS per A.D.A. criteria. Potassium [Moles/Vol] 3.5 mmol/L 3.5-5.1 [facility] Protein [Mass/Vol] 7.4 g/dL 6.4-8.2 [facility] Sodium [Moles/Vol] 136 mmol/L 136-145 [facility] Laboratory - Chemistry and C hemistry - challengeOrdered By: Zayra Napier on 10-04-2023 Albumin/Globulin [Mass ratio] 1.2 {ratio} 0.9-2.4 [facility] ALP [Catalytic activity/Vol] 37 U/L 45-117 [facility] ALT [Catalytic activity/Vol] 33 U/L 16-61 [facility] CO2 [Moles/Vol] 28.0 mmol/L 21.0-32.0 [facility] Globulin (S) [Mass/Vol] 3.3 g/dL 2.2-4.2 [facility] Urea nitrogen/Creatinine [Mass ratio] 8.1 mg/mg 10-20 [facility] No Panel InformationOrdered By: Zayra Napier on 10-04-2023 Estimated GFR (MDRD) Amer 36 mL/min >60 [facility] Comment on above: GFR Calc Estimated GFR (MDRD) Non-Af Amer 30 mL/min >60 [facility] Comment on above: Non- GFR Calc Serum or plasma calcium elaina urement (mass/volume)Ordered By: Zayra Napier on 10-04-2023 Calcium [Mass/Vol] 9.7 mg/dL 8.5-10.1 [facility] Serum or plasma creatinine m easurement (mass/volume)Ordered By: Zayra Napier on 10-04-2023 Creatinine [Mass/Vol] 2.34 mg/dL 0.70-1.30 [facility] Comment on above: The validity of the calculated GFR & GFRAA in patients over 70 years has not been determined. Clinical correlation is essential. Serum or plasma urea nitroge n measurement (mass/volume)Ordered By: Zayra Napier on 10-04-2023 Urea nitrogen [Mass/Vol] 19 mg/dL 7-18 [facility] Thin prep Papanicolaou smear with manual screeningOrdered By: Zayra Napier on 10-04-2023 Thin prep Papanicolaou smear with manual screening 4.1 g/dL 3.2-5.0 [facility] Thin prep Papanicolaou smear with manual screening 27 U/L 15-37 [facility] Thin prep Papanicolaou smear with manual screening 7 5-15 [facility] Absolute lymphocyte countOrd ered By: Zayra Napier on 08-23-2023 Lymphocytes Auto (Unsp spec) [#/Vol] 2.34 10*3/uL 0.83-4.51 [facility] Automated lymphocyte count a s percentage of total leukocytesOrdered By: Zayra CastanedaBlack on 08-23-2023 Lymphocytes/100 WBC Auto (Unsp spec) 17.4 % 19-41 [facility] Basophil percentageOrdered B y: Zayra CastanedaBlack on 08-23-2023 Basophils/100 WBC (Bld) 0.3 % 0-1 [facility] Bilirubin [Mass/Vol] 2.00 mg/dL 0.20-1.00 [facility] Comment on above: For patients on eltr ombopag therapy, use of Dimension Sassafras TBIL is not recommended. Chloride [Moles/Vol] 97 mmol/L 98-107 [facility] Eosinophils/100 WBC (Bld) 0.1 % 0-5 [facility] Glucose [Mass/Vol] 181 mg/dL 74-106 [facility] Comment on above: Fasting Glucose resu lt greater than or equal to 126 mg/dL suggests DIABETES MELLITUS per A.D.A. criteria. Hemoglobin (Bld) [Mass/Vol] 16.0 g/dL 13.0-16.5 [facility] Monocytes/100 WBC (Bld) 9.1 % 0-10 [facility] Neutrophils (Bld) [#/Vol] 9.8 10*3/uL 2.0-7.7 [facility] Neutrophils/100 WBC (Bld) 72.7 % 47-70 [facility] Potassium [Moles/Vol] 4.0 mmol/L 3.5-5.1 [facility] Protein [Mass/Vol] 7.7 g/dL 6.4-8.2 [facility] Sodium [Moles/Vol] 133 mmol/L 136-145 [facility] WBC (Bld) [#/Vol] 13.4 10*3/uL 4.4-11.0 [facility] Determination of erythrocyte mean corpuscular volume (MCV)Ordered By: Zayra Napier on 08-23-2023 MCV (RBC) [Entitic vol] 89.6 fL 80-94 [facility] Erythrocyte distribution wid th ratioOrdered By: Zayra Napier on 08-23-2023 Erythrocyte distribution width (RBC) [Ratio] 11.9 % 11.6-14.6 [facility] Erythrocyte distribution wid th standard deviationOrdered By: Zayra Napier on 08-23-2023 Erythrocyte distribution width (RBC) [Entitic vol] 39.1 fL 35.1-43.9 [facility] Erythrocyte sedimentation ra teOrdered By: Zayra Napier on 08-23-2023 ESR (Bld) [Velocity] 1 mm/h 0-20 [facility] Hematocrit Auto (Bld) [Volum e fraction]Ordered By: Zayra Napier on 08-23-2023 Hematocrit (Bld) [Volume fraction] 45.7 % 40-54 [facility] Immature granulocytes/100 WB C Auto (Bld)Ordered By: Zayra Napier on 08-23-2023 Immature granulocytes/100 WBC (Bld) 0.400 % 0.0-0.9 [facility] Comment on above: IG% - Immature Granu locytes (promyelocytes, myelocytes and metamyelocytes) > 1% indicates that a LEFT SHIFT is Present. Laboratory - Chemistry and C hemistry - challengeOrdered By: Zayra Napier on 08-23-2023 Albumin/Globulin [Mass ratio] 1.3 {ratio} 0.9-2.4 [facility] ALP [Catalytic activity/Vol] 41 U/L 45-117 [facility] ALT [Catalytic activity/Vol] 42 U/L 16-61 [facility] CO2 [Moles/Vol] 26.0 mmol/L 21.0-32.0 [facility] Globulin (S) [Mass/Vol] 3.3 g/dL 2.2-4.2 [facility] Lipase [Catalytic activity/Vol] 162 U/L 13-75 [facility] Comment on above: Please note:LIPASE r evised reference range effective 22. New Lipase methodology. Expected to produce lower values than the previous assay method. NEW Reference Range: 13 - 75 U/L Urea nitrogen/Creatinine [Mass ratio] 12.1 mg/mg 10-20 [facility] Laboratory - Hematology and Cell countsOrdered By: Zayra Napier on 08-23-2023 MCH (RBC) [Entitic mass] 31.4 pg 27.0-32.0 [facility] MCHC (RBC) [Mass/Vol] 35.0 g/dL 32-36 [facility] Nucleated RBC/100 WBC (Bld) [Ratio] 0 % 0-5 [facility] Platelet mean volume (Bld) [Entitic vol] 11.3 fL 6.2-12.0 [facility] Platelets (Bld) [#/Vol] 242 10*3/uL 150-450 [facility] No Panel InformationOrdered By: Zayra Napier on 08-23-2023 C-Reactive Protein Extended Range < 2.90 mg/L 0.0-3.0 [facility] Comment on above: C-Reactive Protein ( CRP) provides useful information for thediagnosis, therapy and monitoring of inflammatory processesand associated diseases. For the evaluation of Relative Riskfor Cardiovascular Disease, a High Sensitivity CRP (HSCRP)should be ordered. Estimated GFR (MDRD) Amer 33 mL/min >60 [facility] Comment on above: GFR Calc Estimated GFR (MDRD) Non-Af Amer 27 mL/min >60 [facility] Comment on above: Non- GFR Calc RBC Auto (Bld) [#/Vol]Ordere d By: Zayra Napier on 08-23-2023 RBC (Bld) [#/Vol] 5.10 10*6/uL 4.6-6.2 [facility] Serum or plasma calcium elaina urement (mass/volume)Ordered By: Zayra Napier on 08-23-2023 Calcium [Mass/Vol] 9.9 mg/dL 8.5-10.1 [facility] Serum or plasma creatinine m easurement (mass/volume)Ordered By: Zayra Napier on 08-23-2023 Creatinine [Mass/Vol] 2.57 mg/dL 0.70-1.30 [facility] Comment on above: The validity of the calculated GFR & GFRAA in patients over 70 years has not been determined. Clinical correlation is essential. Serum or plasma urea nitroge n measurement (mass/volume)Ordered By: Zayra Napeir on 08-23-2023 Urea nitrogen [Mass/Vol] 31 mg/dL 7-18 [facility] Thin prep Papanicolaou smear with manual screeningOrdered By: Zayra Napier on 08-23-2023 Thin prep Papanicolaou smear with manual screening 4.4 g/dL 3.2-5.0 [facility] Thin prep Papanicolaou smear with manual screening 24 U/L 15-37 [facility] Thin prep Papanicolaou smear with manual screening 10 5-15 [facility] Absolute lymphocyte countOrd ered By: ED PROVIDER on 08-13-2023 Lymphocytes Auto (Unsp spec) [#/Vol] 0.79 10*3/uL 0.83-4.51 [facility] Automated lymphocyte count a s percentage of total leukocytesOrdered By: ED PROVIDER on 08-13-2023 Lymphocytes/100 WBC Auto (Unsp spec) 19.1 % 19-41 [facility] Basophil percentageOrdered B y: ED PROVIDER on 08-13-2023 Basophil percentage 0 SEEN /hpf 0-5 [facility] Basophils/100 WBC (Bld) 0.5 % 0-1 [facility] Chloride [Moles/Vol] 103 mmol/L 98-107 [facility] Eosinophils/100 WBC (Bld) 0.0 % 0-5 [facility] Glucose [Mass/Vol] 205 mg/dL 74-106 [facility] Comment on above: Glucose result great er than or equal to 200 mg/dLsuggests DIABETES MELLITUS per A.D.A. criteria. Hemoglobin (Bld) [Mass/Vol] 14.6 g/dL 13.0-16.5 [facility] Monocytes/100 WBC (Bld) 15.7 % 0-10 [facility] Neutrophils (Bld) [#/Vol] 2.7 10*3/uL 2.0-7.7 [facility] Neutrophils/100 WBC (Bld) 64.2 % 47-70 [facility] Potassium [Moles/Vol] 4.8 mmol/L 3.5-5.1 [facility] Comment on above: Moderate Hemolysis, Result may be falsely increased. Sodium [Moles/Vol] 137 mmol/L 136-145 [facility] WBC (Bld) [#/Vol] 4.1 10*3/uL 4.4-11.0 [facility] Bilirubin Test strip Ql (U)O rdered By: ED PROVIDER on 08-13-2023 Bilirubin Ql (U) Negative Negative [facility] Blood manual differential co mment interpretation (narrative result)Ordered By: ED PROVIDER on 08-13-2023 Manual differential comment Chaka (Bld) [Interp] SCANNED [facility] Blood platelet adequacy dete ction by light microscopyOrdered By: ED PROVIDER on 08-13-2023 Platelets LM Ql (Bld) MOD DEC ADEQ [facility] Determination of erythrocyte mean corpuscular volume (MCV)Ordered By: ED PROVIDER on 08-13-2023 MCV (RBC) [Entitic vol] 89.3 fL 80-94 [facility] Erythrocyte distribution wid th ratioOrdered By: ED PROVIDER on 08-13-2023 Erythrocyte distribution width (RBC) [Ratio] 11.9 % 11.6-14.6 [facility] Erythrocyte distribution wid th standard deviationOrdered By: ED PROVIDER on 08-13-2023 Erythrocyte distribution width (RBC) [Entitic vol] 38.2 fL 35.1-43.9 [facility] Hematocrit Auto (Bld) [Volum e fraction]Ordered By: ED PROVIDER on 08-13-2023 Hematocrit (Bld) [Volume fraction] 41.8 % 40-54 [facility] Immature granulocytes/100 WB C Auto (Bld)Ordered By: ED PROVIDER on 08-13-2023 Immature granulocytes/100 WBC (Bld) 0.500 % 0.0-0.9 [facility] Comment on above: IG% - Immature Granu locytes (promyelocytes, myelocytes and metamyelocytes) > 1% indicates that a LEFT SHIFT is Present. Ketones Test strip Ql (U)Ord ered By: ED PROVIDER on 08-13-2023 Ketones Ql (U) 50 mg/dl Negative [facility] Laboratory - Chemistry and C hemistry - challengeOrdered By: ED PROVIDER on 08-13-2023 CO2 [Moles/Vol] 24.0 mmol/L 21.0-32.0 [facility] Urea nitrogen/Creatinine [Mass ratio] 23.3 mg/mg 10-20 [facility] Laboratory - Hematology and Cell countsOrdered By: ED PROVIDER on 08-13-2023 MCH (RBC) [Entitic mass] 31.2 pg 27.0-32.0 [facility] MCHC (RBC) [Mass/Vol] 34.9 g/dL 32-36 [facility] Nucleated RBC/100 WBC (Bld) [Ratio] 0 % 0-5 [facility] Platelet mean volume (Bld) [Entitic vol] 11.3 fL 6.2-12.0 [facility] Platelets (Bld) [#/Vol] 73 10*3/uL 150-450 [facility] Laboratory - Microbiology an d Antimicrobial susceptibilityOrdered By: Wily Maldonado on 08-13-2023 SARS-CoV-2 (COVID-19) RNA JERILYN+probe Ql (Unsp spec) [facility] SARS-CoV-2 (COVID-19) RNA JERILYN+probe Ql (Unsp spec) [facility] Mucus LM Ql (Urine sed)Order ed By: ED PROVIDER on 08-13-2023 Mucus Ql (Urine sed) 0 SEEN /hpf [facility] Nitrite Test strip Ql (U)Ord ered By: ED PROVIDER on 08-13-2023 Nitrite Ql (U) Negative Negative [facility] No Panel InformationOrdered By: ED PROVIDER on 08-13-2023 Urine RBC 5-10 SEEN /hpf 0-5 [facility] Estimated Creatinine Clearance Calc 96.71 ml/min [facility] Estimated GFR (MDRD) Amer 104 mL/min >60 [facility] Comment on above: GFR Calc Estimated GFR (MDRD) Non-Af Amer 86 mL/min >60 [facility] Comment on above: Non- GFR Calc Protein Test strip Ql (U)Ord ered By: ED PROVIDER on 08-13-2023 Protein Ql (U) 500 mg/dl Negative [facility] RBC Auto (Bld) [#/Vol]Ordere d By: ED PROVIDER on 08-13-2023 RBC (Bld) [#/Vol] 4.68 10*6/uL 4.6-6.2 [facility] Serum or plasma calcium elaina urement (mass/volume)Ordered By: ED PROVIDER on 08-13-2023 Calcium [Mass/Vol] 9.3 mg/dL 8.5-10.1 [facility] Serum or plasma creatinine m easurement (mass/volume)Ordered By: ED PROVIDER on 08-13-2023 Creatinine [Mass/Vol] 0.95 mg/dL 0.70-1.30 [facility] Comment on above: The validity of the calculated GFR & GFRAA in patients over 70 years has not been determined. Clinical correlation is essential. Serum or plasma urea nitroge n measurement (mass/volume)Ordered By: ED PROVIDER on 08-13-2023 Urea nitrogen [Mass/Vol] 22 mg/dL 7-18 [facility] Squamous epithelial cells de tection in urine sediment by light microscopyOrdered By: ED PROVIDER on 08-13-2023 Epithelial cells.squamous LM Ql (Urine sed) 0 SEEN /hpf 0-5 [facility] Thin prep Papanicolaou smear with manual screeningOrdered By: ED PROVIDER on 08-13-2023 Thin prep Papanicolaou smear with manual screening 10 5-15 [facility] Thin prep Papanicolaou smear with manual screeningOrdered By: Wily Maldonado on 08-13-2023 Thin prep Papanicolaou smear with manual screening 211 mg/dL 74-106 [facility] Comment on above: MANAGEMENT OF PATIEN T CARE PER NURSING PROTOCOL Urine blood detectionOrdered By: ED PROVIDER on 08-13-2023 RBC Ql (U) 25 /ul Negative [facility] Urine clarityOrdered By: ED PROVIDER on 08-13-2023 Clarity (U) Clear Clear [facility] Urine color determinationOrd ered By: ED PROVIDER on 08-13-2023 Color (U) Yellow Yellow [facility] Urine glucose detectionOrder ed By: ED PROVIDER on 08-13-2023 Glucose Ql (U) 100 mg/dl Normal [facility] Urine leukocyte esterase det ection by dipstickOrdered By: ED PROVIDER on 08-13-2023 Leukocyte esterase Test strip Ql (U) Negative Negative [facility] Urine pHOrdered By: ED PROVI YENIFER on 08-13-2023 pH (U) 6.5 [pH] 5.0 - 8.0 [facility] Urine sediment bacteria coun t by microscopy (number/high power field)Ordered By: ED PROVIDER on 08-13-2023 Bacteria LM.HPF (Urine sed) [#/Area] 0 /[HPF] None Seen [facility] Urine specific gravity measu rementOrdered By: ED PROVIDER on 08-13-2023 Specific gravity (U) [Rel density] 1.030 1.002-1.030 [facility] Urine urobilinogen measureme ntOrdered By: ED PROVIDER on 08-13-2023 Urobilinogen Ql (U) 1 mg/dl Normal [facility] Basophil percentageOrdered B y: Zayra Napier on 06-28-2023 Cholesterol [Mass/Vol] 104 mg/dL <200 [facility] Comment on above: <200 mg/dL Desirable 200-240 mg/dL Borderline >240 mg/dL High Risk Triglyceride [Mass/Vol] 87 mg/dL <199 [facility] Comment on above: The drugs N-Acetylcy steine and Metamizole may falsely depress this assay.Serum Triglycerides Reference Interval Normal <150 mg/dL Borderline high 150 - 199 mg/dL High 200 - 499 mg/dL Very High > or = 500 mg/dL High density lipoprotein (HD L) measurementOrdered By: Zayra Napier on 06-28-2023 Cholesterol in HDL (Body fld) [Mass/Vol] 54 mg/dL >40 [facility] Comment on above: The drugs N-Acetylcy steine and Metamizole may falsely depress this assay. Reference Range HDL <40 mg/dL Low HDL Cholesterol HDL >or= 60 mg/dL High HDL Cholesterol Low density lipoprotein (LDL ) cholesterol measurementOrdered By: Zayra Napier on 06-28-2023 Cholesterol in LDL (Body fld) [Moles/Vol] 33 mg/dL 0-130 [facility] Screening prostate specific antigen (PSA) measurementOrdered By: Zayra Napier on 06-28-2023 Prostate specific Ag IA [Mass/Vol] 0.31 ng/mL 0.00-4.00 [facility] Comment on above: This test was perfor med using the TPSA assay method for theNexidia chemistry system. Values obtained with differentassay methods cannot be used interchangably.When changing PSA assays in the course of monitoring apatient, additional sequential testing should be carriedout to confirm baseline values. Thin prep Papanicolaou smear with manual screeningOrdered By: Zayra Napier on 06-28-2023 Thin prep Papanicolaou smear with manual screening 2700.0 mg/L NO RANGE EST. [facility] Urine albumin/creatinine rat io for detection of microalbuminuriaOrdered By: Zayra Napier on 06-28-2023 Albumin/Creatinine DL <= 1.0 mg/L (24H U) [Ratio] 2250.0 mg/g CRE <30 [facility] Urine creatinine measurement (mass/volume)Ordered By: Zayra Napier on 06-28-2023 Creatinine (U) [Mass/Vol] 120.00 mg/dL NO RANGE EST. [facility] Very low density lipoprotein (VLDL) cholesterol measurementOrdered By: Zayra Napier on 06-28-2023 Cholesterol in VLDL Calc [Moles/Vol] 17 mg/dL 5-40 [facility] Whole blood hemoglobin A1c/t otal hemoglobin ratio (mass fraction)Ordered By: Zayra Napier on 06-28-2023 HbA1c (Bld) [Mass fraction] 6.6 % 3.8-5.6 [facility] Comment on above: Normal < 5.7 % Predi abetic 5.7 - 6.4 % Diabetic >or= 6.5 % Please note range changes. Absolute lymphocyte countOrd ered By: Matt Black on 05-21-2023 Lymphocytes Auto (Unsp spec) [#/Vol] 2.44 10*3/uL 0.83-4.51 [facility] Basophil percentageOrdered B y: Matt Black on 05-21-2023 Bilirubin [Mass/Vol] 1.10 mg/dL 0.20-1.00 [facility] Comment on above: For patients on eltr ombopag therapy, use of Dimension Sassafras TBIL is not recommended. Chloride [Moles/Vol] 106 mmol/L 98-107 [facility] Glucose [Mass/Vol] 145 mg/dL 74-106 [facility] Comment on above: Fasting Glucose resu lt greater than or equal to 126 mg/dL suggests DIABETES MELLITUS per A.D.A. criteria. Potassium [Moles/Vol] 3.6 mmol/L 3.5-5.1 [facility] Protein [Mass/Vol] 6.5 g/dL 6.4-8.2 [facility] Sodium [Moles/Vol] 137 mmol/L 136-145 [facility] Basophils/100 WBC (Bld) 0.7 % 0-1 [facility] Eosinophils/100 WBC (Bld) 1.1 % 0-5 [facility] Neutrophils (Bld) [#/Vol] 5.3 10*3/uL 2.0-7.7 [facility] Neutrophils/100 WBC (Bld) 60.7 % 47-70 [facility] WBC (Bld) [#/Vol] 8.8 10*3/uL 4.4-11.0 [facility] Blood erythrocytes count (nu mber/volume)Ordered By: Matt Black on 05-21-2023 RBC (Bld) [#/Vol] 4.61 10*6/uL 4.6-6.2 [facility] Blood hemoglobin measurement (mass/volume)Ordered By: Matt Black on 05-21-2023 Hemoglobin (Bld) [Mass/Vol] 14.7 g/dL 13.0-16.5 [facility] Blood lymphocytes/100 leukoc ytesOrdered By: Matt Black on 05-21-2023 Lymphocytes/100 WBC (Bld) 27.8 % 19-41 [facility] Blood monocytes/100 leukocyt esOrdered By: Matt Black on 05-21-2023 Monocytes/100 WBC (Bld) 9.6 % 0-10 [facility] Blood platelet mean volumeOr dered By: Matt Black on 05-21-2023 Platelet mean volume (Bld) [Entitic vol] 10.8 fL 6.2-12.0 [facility] Determination of erythrocyte mean corpuscular volume (MCV)Ordered By: Matt Black on 05-21-2023 MCV (RBC) [Entitic vol] 91.1 fL 80-94 [facility] Hematocrit Auto (Bld) [Volum e fraction]Ordered By: Matt Black on 05-21-2023 Hematocrit (Bld) [Volume fraction] 42.0 % 40-54 [facility] Laboratory - Chemistry and C hemistry - challengeOrdered By: Matt Black on 05-21-2023 ALP [Catalytic activity/Vol] 35 U/L 45-117 [facility] ALT [Catalytic activity/Vol] 22 U/L 16-61 [facility] CO2 [Moles/Vol] 28.0 mmol/L 21.0-32.0 [facility] Globulin (S) [Mass/Vol] 3.2 g/dL 2.2-4.2 [facility] Lipase [Catalytic activity/Vol] 41 U/L 13-75 [facility] Comment on above: Please note:LIPASE r evised reference range effective 22. New Lipase methodology. Expected to produce lower values than the previous assay method. NEW Reference Range: 13 - 75 U/L Urea nitrogen/Creatinine [Mass ratio] 13.2 mg/mg 10-20 [facility] Laboratory - Hematology and Cell countsOrdered By: Matt Black on 05-21-2023 Erythrocyte distribution width (RBC) [Entitic vol] 42.9 fL 35.1-43.9 [facility] Erythrocyte distribution width (RBC) [Ratio] 13.0 % 11.6-14.6 [facility] Immature granulocytes/100 WBC (Bld) 0.100 % 0.0-0.9 [facility] Comment on above: IG% - Immature Granu locytes (promyelocytes, myelocytes and metamyelocytes) > 1% indicates that a LEFT SHIFT is Present. MCH (RBC) [Entitic mass] 31.9 pg 27.0-32.0 [facility] Nucleated RBC/100 WBC (Bld) [Ratio] 0 % 0-5 [facility] MCHC Auto (RBC) [Mass/Vol]Or dered By: Matt Black on 05-21-2023 MCHC (RBC) [Mass/Vol] 35.0 g/dL 32-36 [facility] No Panel InformationOrdered By: Matt Black on 05-21-2023 Estimated Creatinine Clearance Calc 98.28 ml/min [facility] Estimated GFR (MDRD) Amer 121 mL/min >60 [facility] Comment on above: GFR Calc Estimated GFR (MDRD) Non-Af Amer 100 mL/min >60 [facility] Comment on above: Non- GFR Calc Platelets bldOrdered By: Jose Black on 05-21-2023 Platelets (Bld) [#/Vol] 189 10*3/uL 150-450 [facility] Serum or plasma albumin elaina urement (mass/volume)Ordered By: Matt Black on 05-21-2023 Albumin [Mass/Vol] 3.3 g/dL 3.2-5.0 [facility] Serum or plasma albumin/glob ulin mass ratioOrdered By: Matt Black on 05-21-2023 Albumin/Globulin [Mass ratio] 1.0 {ratio} 0.9-2.4 [facility] Serum or plasma calcium elaina urement (mass/volume)Ordered By: Matt Black on 05-21-2023 Calcium [Mass/Vol] 8.9 mg/dL 8.5-10.1 [facility] Serum or plasma creatinine m easurement (mass/volume)Ordered By: Matt Black on 05-21-2023 Creatinine [Mass/Vol] 0.83 mg/dL 0.70-1.30 [facility] Comment on above: The validity of the calculated GFR & GFRAA in patients over 70 years has not been determined. Clinical correlation is essential. Serum or plasma urea nitroge n measurement (mass/volume)Ordered By: Matt Black on 05-21-2023 Urea nitrogen [Mass/Vol] 11 mg/dL 7-18 [facility] Thin prep Papanicolaou smear with manual screeningOrdered By: Matt Black on 05-21-2023 Thin prep Papanicolaou smear with manual screening 13 U/L 15-37 [facility] Thin prep Papanicolaou smear with manual screening 3 5-15 [facility] Basophil percentageOrdered B y: Zayra Micaela on 03-13-2023 Chloride [Moles/Vol] 102 mmol/L 98-107 [facility] Glucose [Mass/Vol] 157 mg/dL 74-106 [facility] Comment on above: Fasting Glucose resu lt greater than or equal to 126 mg/dL suggests DIABETES MELLITUS per A.D.A. criteria. Potassium [Moles/Vol] 3.7 mmol/L 3.5-5.1 [facility] Sodium [Moles/Vol] 135 mmol/L 136-145 [facility] Glucose Glucometer (BldC) [M ass/Vol]Ordered By: Zayra Hinojosa on 03-13-2023 Glucose [Mass/Vol] 156 mg/dL 74-106 [facility] Comment on above: MANAGEMENT OF PATIEN T CARE PER NURSING PROTOCOL Laboratory - Chemistry and C hemistry - challengeOrdered By: Zayra Hinojosa on 03-13-2023 CO2 [Moles/Vol] 26.0 mmol/L 21.0-32.0 [facility] Urea nitrogen/Creatinine [Mass ratio] 10.3 mg/mg 10-20 [facility] No Panel InformationOrdered By: Zayra Hinojosa on 03-13-2023 Estimated Creatinine Clearance Calc 83.24 ml/min [facility] Estimated GFR (MDRD) Amer 100 mL/min >60 [facility] Comment on above: GFR Calc Estimated GFR (MDRD) Non-Af Amer 83 mL/min >60 [facility] Comment on above: Non- GFR Calc Serum or plasma calcium elaina urement (mass/volume)Ordered By: Zayra Hinojosa on 03-13-2023 Calcium [Mass/Vol] 9.3 mg/dL 8.5-10.1 [facility] Serum or plasma creatinine m easurement (mass/volume)Ordered By: Zayra Hinojosa on 03-13-2023 Creatinine [Mass/Vol] 0.98 mg/dL 0.70-1.30 [facility] Comment on above: The validity of the calculated GFR & GFRAA in patients over 70 years has not been determined. Clinical correlation is essential. Serum or plasma urea nitroge n measurement (mass/volume)Ordered By: Zayra Hinojosa on 03-13-2023 Urea nitrogen [Mass/Vol] 10 mg/dL 7-18 [facility] Thin prep Papanicolaou smear with manual screeningOrdered By: Zayra Hinojosa on 03-13-2023 Thin prep Papanicolaou smear with manual screening 7 5-15 [facility] Absolute lymphocyte countOrd ered By: David Renner on 2023 Lymphocytes Auto (Unsp spec) [#/Vol] 2.61 10*3/uL 0.83-4.51 [facility] Basophil percentageOrdered B y: David Renner on 2023 Basophils/100 WBC (Bld) 0.7 % 0-1 [facility] Bilirubin [Mass/Vol] 0.90 mg/dL 0.20-1.00 [facility] Comment on above: For patients on eltr ombopag therapy, use of Dimension Sassafras TBIL is not recommended. Eosinophils/100 WBC (Bld) 0.7 % 0-5 [facility] Neutrophils (Bld) [#/Vol] 3.5 10*3/uL 2.0-7.7 [facility] Neutrophils/100 WBC (Bld) 50.7 % 47-70 [facility] Protein [Mass/Vol] 6.0 g/dL 6.4-8.2 [facility] WBC (Bld) [#/Vol] 7.0 10*3/uL 4.4-11.0 [facility] Blood erythrocytes count (nu mber/volume)Ordered By: David Renner on 2023 RBC (Bld) [#/Vol] 4.44 10*6/uL 4.6-6.2 [facility] Blood hemoglobin measurement (mass/volume)Ordered By: David Renner on 2023 Hemoglobin (Bld) [Mass/Vol] 13.7 g/dL 13.0-16.5 [facility] Blood lymphocytes/100 leukoc ytesOrdered By: David Renner on 2023 Lymphocytes/100 WBC (Bld) 37.6 % 19-41 [facility] Blood monocytes/100 leukocyt esOrdered By: David Renner on 2023 Monocytes/100 WBC (Bld) 9.9 % 0-10 [facility] Blood platelet mean volumeOr dered By: David Renner on 2023 Platelet mean volume (Bld) [Entitic vol] 10.4 fL 6.2-12.0 [facility] Determination of erythrocyte mean corpuscular volume (MCV)Ordered By: David Renner on 2023 MCV (RBC) [Entitic vol] 89.9 fL 80-94 [facility] Hematocrit Auto (Bld) [Volum e fraction]Ordered By: David Renner on 2023 Hematocrit (Bld) [Volume fraction] 39.9 % 40-54 [facility] Laboratory - Chemistry and C hemistry - challengeOrdered By: David Renner on 2023 ALP [Catalytic activity/Vol] 36 U/L 45-117 [facility] ALT [Catalytic activity/Vol] 20 U/L 16-61 [facility] Globulin (S) [Mass/Vol] 2.8 g/dL 2.2-4.2 [facility] Laboratory - Hematology and Cell countsOrdered By: David Renner on 2023 Erythrocyte distribution width (RBC) [Entitic vol] 38.4 fL 35.1-43.9 [facility] Erythrocyte distribution width (RBC) [Ratio] 11.8 % 11.6-14.6 [facility] Immature granulocytes/100 WBC (Bld) 0.400 % 0.0-0.9 [facility] Comment on above: IG% - Immature Granu locytes (promyelocytes, myelocytes and metamyelocytes) > 1% indicates that a LEFT SHIFT is Present. MCH (RBC) [Entitic mass] 30.9 pg 27.0-32.0 [facility] Nucleated RBC/100 WBC (Bld) [Ratio] 0 % 0-5 [facility] MCHC Auto (RBC) [Mass/Vol]Or dered By: David Renner on 2023 MCHC (RBC) [Mass/Vol] 34.3 g/dL 32-36 [facility] Platelets bldOrdered By: Krystal Renner on 2023 Platelets (Bld) [#/Vol] 176 10*3/uL 150-450 [facility] Serum or plasma albumin elaina urement (mass/volume)Ordered By: David Renner on 2023 Albumin [Mass/Vol] 3.2 g/dL 3.2-5.0 [facility] Serum or plasma albumin/glob ulin mass ratioOrdered By: David Renner on 2023 Albumin/Globulin [Mass ratio] 1.1 {ratio} 0.9-2.4 [facility] Thin prep Papanicolaou smear with manual screeningOrdered By: David Renner on 2023 Thin prep Papanicolaou smear with manual screening 13 U/L 15-37 [facility] Absolute lymphocyte countOrd ered By: Wily Maldonado on 03-11-2023 Lymphocytes Auto (Unsp spec) [#/Vol] 1.89 10*3/uL 0.83-4.51 [facility] Amorphous sediment detection in urine sediment by light microscopyOrdered By: Wily Maldonado on 03-11-2023 Amorphous sediment LM Ql (Urine sed) 1+ URATE [facility] Basophil percentageOrdered B y: Wily Maldonado on 03-11-2023 Basophil percentage 0 SEEN /hpf 0-5 [facility] Lactate [Moles/Vol] 1.1 mmol/L 0.4-2.0 [facility] Basophils/100 WBC (Bld) 0.4 % 0-1 [facility] Bilirubin [Mass/Vol] 0.90 mg/dL 0.20-1.00 [facility] Comment on above: For patients on eltr ombopag therapy, use of Dimension Sassafras TBIL is not recommended. Chloride [Moles/Vol] 99 mmol/L 98-107 [facility] Eosinophils/100 WBC (Bld) 0.2 % 0-5 [facility] Glucose [Mass/Vol] 70 mg/dL 74-106 [facility] Neutrophils (Bld) [#/Vol] 6.7 10*3/uL 2.0-7.7 [facility] Neutrophils/100 WBC (Bld) 71.0 % 47-70 [facility] Potassium [Moles/Vol] 3.5 mmol/L 3.5-5.1 [facility] Protein [Mass/Vol] 7.9 g/dL 6.4-8.2 [facility] Sodium [Moles/Vol] 136 mmol/L 136-145 [facility] WBC (Bld) [#/Vol] 9.4 10*3/uL 4.4-11.0 [facility] Bilirubin Test strip Ql (U)O rdered By: Wily Maldonado on 03-11-2023 Bilirubin Ql (U) 1 mg/dL Negative [facility] Comment on above: COLOR OF URINE MAY A FFECT DIPSTICK RESULTS. Blood erythrocytes count (nu mber/volume)Ordered By: Wily Maldonado on 03-11-2023 RBC (Bld) [#/Vol] 5.18 10*6/uL 4.6-6.2 [facility] Blood hemoglobin measurement (mass/volume)Ordered By: Wily Maldonado on 03-11-2023 Hemoglobin (Bld) [Mass/Vol] 16.5 g/dL 13.0-16.5 [facility] Blood lymphocytes/100 leukoc ytesOrdered By: Wily Maldonado on 03-11-2023 Lymphocytes/100 WBC (Bld) 20.1 % 19-41 [facility] Blood monocytes/100 leukocyt esOrdered By: Wily Maldonado on 03-11-2023 Monocytes/100 WBC (Bld) 7.9 % 0-10 [facility] Blood platelet mean volumeOr dered By: Wily Maldonado on 03-11-2023 Platelet mean volume (Bld) [Entitic vol] 10.2 fL 6.2-12.0 [facility] Clostridium difficile detect ion by polymerase chain reactionOrdered By: David Renner on 03-11-2023 C. difficile DNA JERILYN+probe Ql (Unsp spec) [facility] Determination of erythrocyte mean corpuscular volume (MCV)Ordered By: Wily Maldonado on 03-11-2023 MCV (RBC) [Entitic vol] 89.6 fL 80-94 [facility] Hematocrit Auto (Bld) [Volum e fraction]Ordered By: Wily Maldonado on 03-11-2023 Hematocrit (Bld) [Volume fraction] 46.4 % 40-54 [facility] Influenza virus A and B and SARS-CoV-2 (COVID-19) Ag panel - Upper respiratory specimOrdered By: Wily Maldonado on 03-11-2023 SARS-CoV-2 (COVID-19) RNA JERILYN+probe Ql (Resp) [facility] SARS-CoV-2 (COVID-19) RNA JERILYN+probe Ql (Resp) [facility] Ketones Test strip Ql (U)Ord ered By: Wily Maldonado on 03-11-2023 Ketones Ql (U) 50 mg/dl Negative [facility] Laboratory - Chemistry and C hemistry - challengeOrdered By: Wily Maldonado on 03-11-2023 ALP [Catalytic activity/Vol] 50 U/L 45-117 [facility] ALT [Catalytic activity/Vol] 28 U/L 16-61 [facility] CO2 [Moles/Vol] 28.0 mmol/L 21.0-32.0 [facility] Globulin (S) [Mass/Vol] 3.6 g/dL 2.2-4.2 [facility] Lipase [Catalytic activity/Vol] 116 U/L 13-75 [facility] Comment on above: Please note:LIPASE r evised reference range effective 22. New Lipase methodology. Expected to produce lower values than the previous assay method. NEW Reference Range: 13 - 75 U/L Urea nitrogen/Creatinine [Mass ratio] 12.1 mg/mg 10-20 [facility] Laboratory - Hematology and Cell countsOrdered By: Wily Maldonado on 03-11-2023 Erythrocyte distribution width (RBC) [Entitic vol] 38.8 fL 35.1-43.9 [facility] Erythrocyte distribution width (RBC) [Ratio] 11.9 % 11.6-14.6 [facility] Immature granulocytes/100 WBC (Bld) 0.400 % 0.0-0.9 [facility] Comment on above: IG% - Immature Granu locytes (promyelocytes, myelocytes and metamyelocytes) > 1% indicates that a LEFT SHIFT is Present. MCH (RBC) [Entitic mass] 31.9 pg 27.0-32.0 [facility] Nucleated RBC/100 WBC (Bld) [Ratio] 0 % 0-5 [facility] MCHC Auto (RBC) [Mass/Vol]Or dered By: Wily Maldonado on 03-11-2023 MCHC (RBC) [Mass/Vol] 35.6 g/dL 32-36 [facility] Mucus LM Ql (Urine sed)Order ed By: iWly Maldonado on 03-11-2023 Mucus Ql (Urine sed) 0 SEEN /hpf [facility] Nitrite Test strip Ql (U)Ord ered By: Wily Maldonado on 03-11-2023 Nitrite Ql (U) Negative Negative [facility] No Panel InformationOrdered By: Wily Maldonado on 03-11-2023 D-Dimer Quantitative (PE/DVT) 0.87 FEU/ug/m 0.27-0.49 [facility] Comment on above: D-Dimer ELEVATED (>0 .49): Additional studies and clinicalassessments are indicated to conclude diagnosis of:Deep Vein Thrombosis (DVT) or Pulmonary Embolism (PE)CRITICAL VALUE VERIFIED. CALLED TO MARIE BREEN03/11/23 1820 Keri Proctor.RESULTS READ BACK BY SAME. Estimated Creatinine Clearance Calc 32.15 ml/min [facility] Estimated GFR (MDRD) Amer 33 mL/min >60 [facility] Comment on above: GFR Calc Estimated GFR (MDRD) Non-Af Amer 27 mL/min >60 [facility] Comment on above: Non- GFR Calc Platelets bldOrdered By: Brittnee Maldonado on 03-11-2023 Platelets (Bld) [#/Vol] 228 10*3/uL 150-450 [facility] Protein Test strip Ql (U)Ord ered By: Wily Maldonado on 03-11-2023 Protein Ql (U) 100 mg/dl Negative [facility] Serum or plasma albumin elaina urement (mass/volume)Ordered By: Wily Maldonado on 03-11-2023 Albumin [Mass/Vol] 4.3 g/dL 3.2-5.0 [facility] Serum or plasma albumin/glob ulin mass ratioOrdered By: Wily Maldonado on 03-11-2023 Albumin/Globulin [Mass ratio] 1.2 {ratio} 0.9-2.4 [facility] Serum or plasma calcium elaina urement (mass/volume)Ordered By: Wily Maldonado on 03-11-2023 Calcium [Mass/Vol] 9.8 mg/dL 8.5-10.1 [facility] Serum or plasma creatinine m easurement (mass/volume)Ordered By: Wily Maldonado on 03-11-2023 Creatinine [Mass/Vol] 2.57 mg/dL 0.70-1.30 [facility] Comment on above: The validity of the calculated GFR & GFRAA in patients over 70 years has not been determined. Clinical correlation is essential. Serum or plasma urea nitroge n measurement (mass/volume)Ordered By: Wily Mladonado on 03-11-2023 Urea nitrogen [Mass/Vol] 31 mg/dL 7-18 [facility] Squamous epithelial cells de tection in urine sediment by light microscopyOrdered By: Wily Maldonado on 03-11-2023 Epithelial cells.squamous LM Ql (Urine sed) 0-5 SEEN /hpf 0-5 [facility] Thin prep Papanicolaou smear with manual screeningOrdered By: Wily Maldonado on 03-11-2023 Thin prep Papanicolaou smear with manual screening 18 U/L 15-37 [facility] Thin prep Papanicolaou smear with manual screening 9 5-15 [facility] Upper respiratory specimen i nfluenza A virus, influenza B virus, and severe acute respiratory syndromOrdered By: Wily Maldonado on 03-11-2023 Upper respiratory specimen influenza A virus, influenza B virus, and severe acute respiratory syndrom [facility] Urine blood detectionOrdered By: Wily Maldonado on 03-11-2023 RBC Ql (U) 10 /ul Negative [facility] RBC Ql (U) 0-5 SEEN /hpf 0-5 [facility] Urine clarityOrdered By: Brittnee Maldonado on 03-11-2023 Clarity (U) Sl. Cloudy Clear [facility] Urine color determinationOrd ered By: Wily Maldonado on 03-11-2023 Color (U) Yellow Yellow [facility] Urine glucose detectionOrder ed By: Wily Maldonado on 03-11-2023 Glucose Ql (U) Normal mg/dl Normal [facility] Urine leukocyte esterase det ection by dipstickOrdered By: Wily Maldonado on 03-11-2023 Leukocyte esterase Test strip Ql (U) Negative Negative [facility] Urine pHOrdered By: Wily andrade on 03-11-2023 pH (U) 5.0 [pH] 5.0 - 8.0 [facility] Urine sediment bacteria coun t by microscopy (number/high power field)Ordered By: Wily Maldonado on 03-11-2023 Bacteria LM.HPF (Urine sed) [#/Area] 0 /[HPF] None Seen [facility] Urine specific gravity measu rementOrdered By: Wily Maldonado on 03-11-2023 Specific gravity (U) [Rel density] 1.025 1.002-1.030 [facility] Urobilinogen Auto test strip Ql (U)Ordered By: Wily Maldonado on 03-11-2023 Urobilinogen Ql (U) Normal mg/dl Normal [facility] Absolute lymphocyte countOrd ered By: ED PROVIDER on 03-07-2023 Lymphocytes Auto (Unsp spec) [#/Vol] 1.95 10*3/uL 0.83-4.51 [facility] Basophil percentageOrdered B y: ED PROVIDER on 03-07-2023 Basophils/100 WBC (Bld) 0.6 % 0-1 [facility] Eosinophils/100 WBC (Bld) 0.4 % 0-5 [facility] Neutrophils (Bld) [#/Vol] 5.5 10*3/uL 2.0-7.7 [facility] Neutrophils/100 WBC (Bld) 67.6 % 47-70 [facility] WBC (Bld) [#/Vol] 8.1 10*3/uL 4.4-11.0 [facility] Basophil percentageOrdered B y: Lam Yo on 03-07-2023 Bilirubin [Mass/Vol] 0.90 mg/dL 0.20-1.00 [facility] Comment on above: For patients on eltr ombopag therapy, use of Dimension Sassafras TBIL is not recommended. Chloride [Moles/Vol] 105 mmol/L 98-107 [facility] Glucose [Mass/Vol] 125 mg/dL 74-106 [facility] Comment on above: Fasting Glucose resu lt from 100 to 125 mg/dL suggests IMPAIRED HOMEOSTASIS per A.D.A. criteria. Potassium [Moles/Vol] 3.9 mmol/L 3.5-5.1 [facility] Protein [Mass/Vol] 8.0 g/dL 6.4-8.2 [facility] Sodium [Moles/Vol] 137 mmol/L 136-145 [facility] Blood erythrocytes count (nu mber/volume)Ordered By: ED PROVIDER on 03-07-2023 RBC (Bld) [#/Vol] 5.15 10*6/uL 4.6-6.2 [facility] Blood hemoglobin measurement (mass/volume)Ordered By: ED PROVIDER on 03-07-2023 Hemoglobin (Bld) [Mass/Vol] 16.0 g/dL 13.0-16.5 [facility] Blood lymphocytes/100 leukoc ytesOrdered By: ED PROVIDER on 03-07-2023 Lymphocytes/100 WBC (Bld) 24.1 % 19-41 [facility] Blood monocytes/100 leukocyt esOrdered By: ED PROVIDER on 03-07-2023 Monocytes/100 WBC (Bld) 6.8 % 0-10 [facility] Blood platelet mean volumeOr dered By: ED PROVIDER on 03-07-2023 Platelet mean volume (Bld) [Entitic vol] 10.1 fL 6.2-12.0 [facility] Determination of erythrocyte mean corpuscular volume (MCV)Ordered By: ED PROVIDER on 03-07-2023 MCV (RBC) [Entitic vol] 89.9 fL 80-94 [facility] Hematocrit Auto (Bld) [Volum e fraction]Ordered By: ED PROVIDER on 03-07-2023 Hematocrit (Bld) [Volume fraction] 46.3 % 40-54 [facility] Laboratory - Chemistry and C hemistry - challengeOrdered By: Lam Yo on 03-07-2023 ALP [Catalytic activity/Vol] 52 U/L 45-117 [facility] ALT [Catalytic activity/Vol] 26 U/L 16-61 [facility] CO2 [Moles/Vol] 26.0 mmol/L 21.0-32.0 [facility] Globulin (S) [Mass/Vol] 3.9 g/dL 2.2-4.2 [facility] Urea nitrogen/Creatinine [Mass ratio] 16.8 mg/mg 10-20 [facility] Laboratory - Hematology and Cell countsOrdered By: ED PROVIDER on 03-07-2023 Erythrocyte distribution width (RBC) [Entitic vol] 38.7 fL 35.1-43.9 [facility] Erythrocyte distribution width (RBC) [Ratio] 11.9 % 11.6-14.6 [facility] Immature granulocytes/100 WBC (Bld) 0.500 % 0.0-0.9 [facility] Comment on above: IG% - Immature Granu locytes (promyelocytes, myelocytes and metamyelocytes) > 1% indicates that a LEFT SHIFT is Present. MCH (RBC) [Entitic mass] 31.1 pg 27.0-32.0 [facility] Nucleated RBC/100 WBC (Bld) [Ratio] 0 % 0-5 [facility] MCHC Auto (RBC) [Mass/Vol]Or dered By: ED PROVIDER on 03-07-2023 MCHC (RBC) [Mass/Vol] 34.6 g/dL 32-36 [facility] No Panel InformationOrdered By: Lam Yo on 03-07-2023 Estimated Creatinine Clearance Calc 73.12 ml/min [facility] Estimated GFR (MDRD) Amer 85 mL/min >60 [facility] Comment on above: GFR Calc Estimated GFR (MDRD) Non-Af Amer 70 mL/min >60 [facility] Comment on above: Non- GFR Calc Platelets bldOrdered By: ED PROVIDER on 03-07-2023 Platelets (Bld) [#/Vol] 248 10*3/uL 150-450 [facility] Serum or plasma albumin elaina urement (mass/volume)Ordered By: Lam Yo on 03-07-2023 Albumin [Mass/Vol] 4.1 g/dL 3.2-5.0 [facility] Serum or plasma albumin/glob ulin mass ratioOrdered By: Lam Yo on 03-07-2023 Albumin/Globulin [Mass ratio] 1.1 {ratio} 0.9-2.4 [facility] Serum or plasma calcium elaina urement (mass/volume)Ordered By: Lam Yo on 03-07-2023 Calcium [Mass/Vol] 10.0 mg/dL 8.5-10.1 [facility] Serum or plasma creatinine m easurement (mass/volume)Ordered By: Lam Yo on 03-07-2023 Creatinine [Mass/Vol] 1.13 mg/dL 0.70-1.30 [facility] Comment on above: The validity of the calculated GFR & GFRAA in patients over 70 years has not been determined. Clinical correlation is essential. Serum or plasma urea nitroge n measurement (mass/volume)Ordered By: Lam Yo on 03-07-2023 Urea nitrogen [Mass/Vol] 19 mg/dL 7-18 [facility] Thin prep Papanicolaou smear with manual screeningOrdered By: Lam Yo on 03-07-2023 Thin prep Papanicolaou smear with manual screening 16 U/L 15-37 [facility] Thin prep Papanicolaou smear with manual screening 6 5-15 [facility] No Panel Informationon 03-01 POC SARS CoV-2 Antigen Positive [facility] Basophil percentageOrdered B y: Zayra Black on 12-19-2022 Potassium [Moles/Vol] 3.6 mmol/L 3.5-5.1 [facility] Absolute lymphocyte countOrd ered By: Mariela Narvaez on 12-14-2022 Lymphocytes Auto (Unsp spec) [#/Vol] 1.75 10*3/uL 0.83-4.51 [facility] Basophil percentageOrdered B y: Mariela Narvaez on 12-14-2022 Basophils/100 WBC (Bld) 0.3 % 0-1 [facility] Bilirubin [Mass/Vol] 1.20 mg/dL 0.20-1.00 [facility] Comment on above: For patients on eltr ombopag therapy, use of Dimension Sassafras TBIL is not recommended. Chloride [Moles/Vol] 104 mmol/L 98-107 [facility] Eosinophils/100 WBC (Bld) 0.3 % 0-5 [facility] Glucose [Mass/Vol] 200 mg/dL 74-106 [facility] Comment on above: Glucose result great er than or equal to 200 mg/dLsuggests DIABETES MELLITUS per A.D.A. criteria. Neutrophils (Bld) [#/Vol] 4.6 10*3/uL 2.0-7.7 [facility] Neutrophils/100 WBC (Bld) 63.8 % 47-70 [facility] Potassium [Moles/Vol] 3.2 mmol/L 3.5-5.1 [facility] Protein [Mass/Vol] 6.1 g/dL 6.4-8.2 [facility] Sodium [Moles/Vol] 136 mmol/L 136-145 [facility] WBC (Bld) [#/Vol] 7.2 10*3/uL 4.4-11.0 [facility] Blood erythrocytes count (nu mber/volume)Ordered By: Mariela Narvaez on 12-14-2022 RBC (Bld) [#/Vol] 4.89 10*6/uL 4.6-6.2 [facility] Blood hemoglobin measurement (mass/volume)Ordered By: Mariela Narvaez on 12-14-2022 Hemoglobin (Bld) [Mass/Vol] 15.5 g/dL 13.0-16.5 [facility] Blood lymphocytes/100 leukoc ytesOrdered By: Mariela Narvaez on 12-14-2022 Lymphocytes/100 WBC (Bld) 24.2 % 19-41 [facility] Blood monocytes/100 leukocyt esOrdered By: Mariela Narvaez on 12-14-2022 Monocytes/100 WBC (Bld) 10.8 % 0-10 [facility] Blood platelet mean volumeOr dered By: Mariela Narvaez on 12-14-2022 Platelet mean volume (Bld) [Entitic vol] 10.8 fL 6.2-12.0 [facility] Determination of erythrocyte mean corpuscular volume (MCV)Ordered By: Mariela Narvaez on 12-14-2022 MCV (RBC) [Entitic vol] 87.1 fL 80-94 [facility] Glucose Glucometer (BldC) [M ass/Vol]Ordered By: Mariela Narvaez on 12-14-2022 Glucose [Mass/Vol] 225 mg/dL 74-106 [facility] Comment on above: MANAGEMENT OF PATIEN T CARE PER NURSING PROTOCOL Hematocrit Auto (Bld) [Volum e fraction]Ordered By: Mariela Narvaez on 12-14-2022 Hematocrit (Bld) [Volume fraction] 42.6 % 40-54 [facility] Laboratory - Chemistry and C hemistry - challengeOrdered By: Mariela Narvaez on 12-14-2022 ALP [Catalytic activity/Vol] 38 U/L 45-117 [facility] ALT [Catalytic activity/Vol] 20 U/L 16-61 [facility] CO2 [Moles/Vol] 23.0 mmol/L 21.0-32.0 [facility] Globulin (S) [Mass/Vol] 2.9 g/dL 2.2-4.2 [facility] Urea nitrogen/Creatinine [Mass ratio] 15.4 mg/mg 10-20 [facility] Laboratory - Hematology and Cell countsOrdered By: Mariela Narvaez on 12-14-2022 Erythrocyte distribution width (RBC) [Entitic vol] 36.7 fL 35.1-43.9 [facility] Erythrocyte distribution width (RBC) [Ratio] 11.5 % 11.6-14.6 [facility] Immature granulocytes/100 WBC (Bld) 0.600 % 0.0-0.9 [facility] Comment on above: IG% - Immature Granu locytes (promyelocytes, myelocytes and metamyelocytes) > 1% indicates that a LEFT SHIFT is Present. MCH (RBC) [Entitic mass] 31.7 pg 27.0-32.0 [facility] Nucleated RBC/100 WBC (Bld) [Ratio] 0 % 0-5 [facility] MCHC Auto (RBC) [Mass/Vol]Or dered By: Mariela Narvaez on 12-14-2022 MCHC (RBC) [Mass/Vol] 36.4 g/dL 32-36 [facility] No Panel InformationOrdered By: Mariela Narvaez on 12-14-2022 Estimated Creatinine Clearance Calc 90.79 ml/min [facility] Estimated GFR (MDRD) Amer 109 mL/min >60 [facility] Comment on above: GFR Calc Estimated GFR (MDRD) Non-Af Amer 90 mL/min >60 [facility] Comment on above: Non- GFR Calc Platelets bldOrdered By: Aimee Narvaez on 12-14-2022 Platelets (Bld) [#/Vol] 177 10*3/uL 150-450 [facility] Serum or plasma albumin elaina urement (mass/volume)Ordered By: Mariela Narvaez on 12-14-2022 Albumin [Mass/Vol] 3.2 g/dL 3.2-5.0 [facility] Serum or plasma albumin/glob ulin mass ratioOrdered By: Mariela Narvaez on 12-14-2022 Albumin/Globulin [Mass ratio] 1.1 {ratio} 0.9-2.4 [facility] Serum or plasma calcium elaina urement (mass/volume)Ordered By: Mariela Narvaez on 12-14-2022 Calcium [Mass/Vol] 8.7 mg/dL 8.5-10.1 [facility] Serum or plasma creatinine m easurement (mass/volume)Ordered By: Mariela Narvaez on 12-14-2022 Creatinine [Mass/Vol] 0.91 mg/dL 0.70-1.30 [facility] Comment on above: The validity of the calculated GFR & GFRAA in patients over 70 years has not been determined. Clinical correlation is essential. Serum or plasma urea nitroge n measurement (mass/volume)Ordered By: Mariela Narvaez on 12-14-2022 Urea nitrogen [Mass/Vol] 14 mg/dL 7-18 [facility] Thin prep Papanicolaou smear with manual screeningOrdered By: Mariela Narvaez on 12-14-2022 Thin prep Papanicolaou smear with manual screening 17 U/L 15-37 [facility] Thin prep Papanicolaou smear with manual screening 9 5-15 [facility] Whole blood hemoglobin A1c/t otal hemoglobin ratio (mass fraction)Ordered By: Marvel Velez on 12-13-2022 HbA1c (Bld) [Mass fraction] 10.7 % 3.8-5.6 [facility] Comment on above: Normal < 5.7 % Predi abetic 5.7 - 6.4 % Diabetic >or= 6.5 % Please note range changes. Basophil percentageOrdered B y: Mariela Narvaez on 12-11-2022 Basophil percentage 0-5 SEEN /hpf 0-5 [facility] Bilirubin Test strip Ql (U)O rdered By: Mariela Narvaez on 12-11-2022 Bilirubin Ql (U) Negative Negative [facility] Erythrocyte sedimentation ra teOrdered By: Mariela Narvaez on 12-11-2022 ESR (Bld) [Velocity] 12 mm/h 0-20 [facility] Ketones Test strip Ql (U)Ord ered By: Mariela Narvaez on 12-11-2022 Ketones Ql (U) 50 mg/dl Negative [facility] Laboratory - Chemistry and C hemistry - challengeOrdered By: Mariela Narvaez on 12-11-2022 Sodium (U) [Moles/Vol] 135 mmol/L Not Establ. [facility] Mucus LM Ql (Urine sed)Order ed By: Mariela Narvaez on 12-11-2022 Mucus Ql (Urine sed) 0 SEEN /hpf [facility] Nitrite Test strip Ql (U)Ord ered By: Mariela Narvaez on 12-11-2022 Nitrite Ql (U) Negative Negative [facility] No Panel InformationOrdered By: Mariela Narvaez on 12-11-2022 Urine Potassium 30.0 mmol/L Not Establ. [facility] Urine Urea Nitrogen 470 mg/dL NO RANGE EST. [facility] Protein Test strip Ql (U)Ord ered By: Mariela Narvaez on 12-11-2022 Protein Ql (U) 100 mg/dl Negative [facility] Serum or plasma C reactive p rotein measurement (mass/volume)Ordered By: Mariela Narvaez on 12-11-2022 CRP [Mass/Vol] mg/L 0.0-3.0 [facility] Comment on above: C-Reactive Protein ( CRP) provides useful information for thediagnosis, therapy and monitoring of inflammatory processesand associated diseases. For the evaluation of Relative Riskfor Cardiovascular Disease, a High Sensitivity CRP (HSCRP)should be ordered. Squamous epithelial cells de tection in urine sediment by light microscopyOrdered By: Mariela Narvaez on 12-11-2022 Epithelial cells.squamous LM Ql (Urine sed) 0 SEEN /hpf 0-5 [facility] Thin prep Papanicolaou smear with manual screeningOrdered By: Mariela Narvaez on 12-11-2022 Thin prep Papanicolaou smear with manual screening 150 mmol/L Not Establ. [facility] Urine blood detectionOrdered By: Mariela Narvaez on 12-11-2022 RBC Ql (U) 25 /ul Negative [facility] RBC Ql (U) 0-5 SEEN /hpf 0-5 [facility] Urine clarityOrdered By: Aimee Narvaez on 12-11-2022 Clarity (U) Clear Clear [facility] Urine color determinationOrd ered By: Mariela Narvaez on 12-11-2022 Color (U) Yellow Yellow [facility] Urine creatinine measurement (mass/volume)Ordered By: Mariela Narvaez on 12-11-2022 Creatinine (U) [Mass/Vol] 58.00 mg/dL NO RANGE EST. [facility] Urine glucose detectionOrder ed By: Mariela Narvaez on 12-11-2022 Glucose Ql (U) 1000 mg/dl Normal [facility] Urine leukocyte esterase det ection by dipstickOrdered By: Mariela Narvaez on 12-11-2022 Leukocyte esterase Test strip Ql (U) Negative Negative [facility] Urine osmolality measurement Ordered By: Mariela Narvaez on 12-11-2022 Osmolality (U) [Osmolality] 593 mOsm/KG >50 [facility] Comment on above: Normal Urine Referen ce Ranges Random: 50 - 1200 mOsm/kg H20 depending on fluid intake Random: >850 mOsm/kg after 12 hour fluid restriction 24 hour: ~300 - 900 mOsm/kg H2O Urine pHOrdered By: Mariela alvarez on 12-11-2022 pH (U) 6.5 [pH] 5.0 - 8.0 [facility] Urine sediment bacteria coun t by microscopy (number/high power field)Ordered By: Mariela Narvaez on 12-11-2022 Bacteria LM.HPF (Urine sed) [#/Area] 0 /[HPF] None Seen [facility] Urine specific gravity measu rementOrdered By: Mariela Narvaez on 12-11-2022 Specific gravity (U) [Rel density] 1.015 1.002-1.030 [facility] Urobilinogen Auto test strip Ql (U)Ordered By: Mariela Narvaez on 12-11-2022 Urobilinogen Ql (U) Normal mg/dl Normal [facility] Ova and parasitesOrdered By: Kate Carrion on 12-09-2022 Ova and parasites identified LM Nom (Unsp spec) [facility] Stool enteric pathogen panel by probe and target amplification methodOrdered By: Kate Carrion on 12-09-2022 Gastrointestinal pathogens panel JERILYN+probe (Stl) [facility] Absolute lymphocyte countOrd ered By: David Barrett on 12-08-2022 Lymphocytes Auto (Unsp spec) [#/Vol] 1.38 10*3/uL 0.83-4.51 [facility] Basophil percentageOrdered B y: David Barrett on 12-08-2022 Lactate [Moles/Vol] 1.8 mmol/L 0.4-2.0 [facility] Basophil percentage 0 SEEN /hpf 0-5 [facility] Basophils/100 WBC (Bld) 0.8 % 0-1 [facility] Bilirubin [Mass/Vol] 1.30 mg/dL 0.20-1.00 [facility] Comment on above: For patients on eltr ombopag therapy, use of Dimension Sassafr[place] TBIL is not recommended. Chloride [Moles/Vol] 102 mmol/L 98-107 [facility] Eosinophils/100 WBC (Bld) 0.6 % 0-5 [facility] Glucose [Mass/Vol] 260 mg/dL 74-106 [facility] Comment on above: Glucose result great er than or equal to 200 mg/dLsuggests DIABETES MELLITUS per A.D.A. criteria. Neutrophils (Bld) [#/Vol] 4.5 10*3/uL 2.0-7.7 [facility] Neutrophils/100 WBC (Bld) 68.1 % 47-70 [facility] Potassium [Moles/Vol] 4.4 mmol/L 3.5-5.1 [facility] Protein [Mass/Vol] 7.9 g/dL 6.4-8.2 [facility] Sodium [Moles/Vol] 136 mmol/L 136-145 [facility] WBC (Bld) [#/Vol] 6.6 10*3/uL 4.4-11.0 [facility] Bilirubin Test strip Ql (U)O rdered By: David Barrett on 12-08-2022 Bilirubin Ql (U) Negative Negative [facility] Blood erythrocytes count (nu mber/volume)Ordered By: David Barrett on 12-08-2022 RBC (Bld) [#/Vol] 5.11 10*6/uL 4.6-6.2 [facility] Blood hemoglobin measurement (mass/volume)Ordered By: David Barrett on 12-08-2022 Hemoglobin (Bld) [Mass/Vol] 16.0 g/dL 13.0-16.5 [facility] Blood lymphocytes/100 leukoc ytesOrdered By: David Barrett on 12-08-2022 Lymphocytes/100 WBC (Bld) 21.1 % 19-41 [facility] Blood monocytes/100 leukocyt esOrdered By: David Barrett on 12-08-2022 Monocytes/100 WBC (Bld) 8.9 % 0-10 [facility] Blood platelet mean volumeOr dered By: David Barrett on 12-08-2022 Platelet mean volume (Bld) [Entitic vol] 10.8 fL 6.2-12.0 [facility] Determination of erythrocyte mean corpuscular volume (MCV)Ordered By: David Barrett on 12-08-2022 MCV (RBC) [Entitic vol] 89.8 fL 80-94 [facility] Glucose Glucometer (BldC) [M ass/Vol]Ordered By: Rosanna Abraham on 12-08-2022 Glucose [Mass/Vol] 275 mg/dL 74-106 [facility] Comment on above: MANAGEMENT OF PATIEN T CARE PER NURSING PROTOCOL Hematocrit Auto (Bld) [Volum e fraction]Ordered By: David Barrett on 12-08-2022 Hematocrit (Bld) [Volume fraction] 45.9 % 40-54 [facility] Ketones Test strip Ql (U)Ord ered By: David Barrett on 12-08-2022 Ketones Ql (U) 50 mg/dl Negative [facility] Laboratory - Chemistry and C hemistry - challengeOrdered By: Daivd Barrett on 12-08-2022 ALP [Catalytic activity/Vol] 54 U/L 45-117 [facility] ALT [Catalytic activity/Vol] 29 U/L 16-61 [facility] CO2 [Moles/Vol] 25.0 mmol/L 21.0-32.0 [facility] Globulin (S) [Mass/Vol] 3.6 g/dL 2.2-4.2 [facility] Lipase [Catalytic activity/Vol] 76 U/L 13-75 [facility] Comment on above: Please note:LIPASE r evised reference range effective 22. New Lipase methodology. Expected to produce lower values than the previous assay method. NEW Reference Range: 13 - 75 U/L Urea nitrogen/Creatinine [Mass ratio] 16.7 mg/mg 10-20 [facility] Laboratory - Hematology and Cell countsOrdered By: David Barrett on 12-08-2022 Erythrocyte distribution width (RBC) [Entitic vol] 37.2 fL 35.1-43.9 [facility] Erythrocyte distribution width (RBC) [Ratio] 11.3 % 11.6-14.6 [facility] Immature granulocytes/100 WBC (Bld) 0.500 % 0.0-0.9 [facility] Comment on above: IG% - Immature Granu locytes (promyelocytes, myelocytes and metamyelocytes) > 1% indicates that a LEFT SHIFT is Present. MCH (RBC) [Entitic mass] 31.3 pg 27.0-32.0 [facility] Nucleated RBC/100 WBC (Bld) [Ratio] 0 % 0-5 [facility] MCHC Auto (RBC) [Mass/Vol]Or dered By: David Barrett on 12-08-2022 MCHC (RBC) [Mass/Vol] 34.9 g/dL 32-36 [facility] Mucus LM Ql (Urine sed)Order ed By: David Barrett on 12-08-2022 Mucus Ql (Urine sed) 0 SEEN /hpf [facility] Nitrite Test strip Ql (U)Ord ered By: David Barrett on 12-08-2022 Nitrite Ql (U) Negative Negative [facility] No Panel InformationOrdered By: Kate Carrion on 12-08-2022 Troponin I High Sensitivity 28 pg/mL 3.0-78.0 [facility] Comment on above: Please Note: New Nyla t Units and Gender Specific Reference Ranges. For more information see Policy Stat Procedure Sassafras High Sensitivity Troponin (TNIH) and attachments. No Panel InformationOrdered By: Dvaid Barrett on 12-08-2022 Estimated Creatinine Clearance Calc 68.85 ml/min [facility] Estimated GFR (MDRD) Amer 79 mL/min >60 [facility] Comment on above: GFR Calc Estimated GFR (MDRD) Non-Af Amer 65 mL/min >60 [facility] Comment on above: Non- GFR Calc Platelets bldOrdered By: Krystal Barrett on 12-08-2022 Platelets (Bld) [#/Vol] 175 10*3/uL 150-450 [facility] Protein Test strip Ql (U)Ord ered By: David Barrett on 12-08-2022 Protein Ql (U) 30 mg/dl Negative [facility] Serum or plasma albumin elaina urement (mass/volume)Ordered By: David Barrett on 12-08-2022 Albumin [Mass/Vol] 4.3 g/dL 3.2-5.0 [facility] Serum or plasma albumin/glob ulin mass ratioOrdered By: David Barrett on 12-08-2022 Albumin/Globulin [Mass ratio] 1.2 {ratio} 0.9-2.4 [facility] Serum or plasma calcium elaina urement (mass/volume)Ordered By: David Barrett on 12-08-2022 Calcium [Mass/Vol] 10.0 mg/dL 8.5-10.1 [facility] Serum or plasma creatinine m easurement (mass/volume)Ordered By: David Barrett on 12-08-2022 Creatinine [Mass/Vol] 1.20 mg/dL 0.70-1.30 [facility] Comment on above: The validity of the calculated GFR & GFRAA in patients over 70 years has not been determined. Clinical correlation is essential. Serum or plasma urea nitroge n measurement (mass/volume)Ordered By: David Barrett on 12-08-2022 Urea nitrogen [Mass/Vol] 20 mg/dL 7-18 [facility] Serum procalcitonin measurem entOrdered By: Kate Carrion on 12-08-2022 Procalcitonin [Mass/Vol] ng/mL 0.00-0.09 [facility] Comment on above: A procalcitonin (PCT ) [...] Ql (Urine sed) 0 SEEN /hpf 0-5 [facility] Thin prep Papanicolaou smear with manual screeningOrdered By: David Barrett on 12-08-2022 Thin prep Papanicolaou smear with manual screening 20 U/L 15-37 [facility] Thin prep Papanicolaou smear with manual screening 9 5-15 [facility] Urine blood detectionOrdered By: David Barrett on 12-08-2022 RBC Ql (U) 10 /ul Negative [facility] RBC Ql (U) 0 SEEN /hpf 0-5 [facility] Urine clarityOrdered By: Krystal Barrett on 12-08-2022 Clarity (U) Sl. Cloudy Clear [facility] Urine color determinationOrd ered By: David Barrett on 12-08-2022 Color (U) Yellow Yellow [facility] Urine glucose detectionOrder ed By: David Barrett on 12-08-2022 Glucose Ql (U) 1000 mg/dl Normal [facility] Urine leukocyte esterase det ection by dipstickOrdered By: David Barrett on 12-08-2022 Leukocyte esterase Test strip Ql (U) Negative Negative [facility] Urine pHOrdered By: David tate on 12-08-2022 pH (U) 7.0 [pH] 5.0 - 8.0 [facility] Urine sediment bacteria coun t by microscopy (number/high power field)Ordered By: David Barrett on 12-08-2022 Bacteria LM.HPF (Urine sed) [#/Area] 0 /[HPF] None Seen [facility] Urine specific gravity measu rementOrdered By: David Barrett on 12-08-2022 Specific gravity (U) [Rel density] 1.010 1.002-1.030 [facility] Urobilinogen Auto test strip Ql (U)Ordered By: David Barrett on 12-08-2022 Urobilinogen Ql (U) Normal mg/dl Normal [facility] Vital Signs Date Time Vital Sign Value Performing Clinician Faci lity 11-20-2024 00:53-0400 Body temperature 97.5 [degF] Dr. Zayra Napier DO Work Phone: [facility] 11-20-2024 00:53-0400 Diastolic blood pressure 101 mm[Hg] Dr. Zayra Napier DO Work Phone: [facility] 11-20-2024 00:53-0400 Heart rate 115 /min Dr. Zayra Napier DO Work Phone: [facility] 11-20-2024 00:53-0400 Respiratory rate 18 /min Dr. Zayra Napier DO Work Phone: [facility] 11-20-2024 00:53-0400 SaO2% (BldA) [Mass fraction] 100 % Dr. Zayra Napier DO Work Phone: [facility] 11-20-2024 00:53-0400 Systolic blood pressure 176 mm[Hg] Dr. Zayra Napier DO Work Phone: [facility] 11-19-2024 20:52-0400 Body height 180.[address] Zayra Napier DO Work Phone: [facility] 11-19-2024 20:52-0400 Body mass index (BMI) [Ratio] 37.6 kg/m2 Dr. Zayra Napier DO Work Phone: [facility] 11-19-2024 20:52-0400 Body weight 122.[address] Zayra Napier DO Work Phone: [facility] 08-13-2023 06:39-0500 Body temperature 97.2 [degF] [facility] 08-13-2023 06:39-0500 Diastolic blood pressure 99 mm[Hg] [facility] 08-13-2023 06:39-0500 Heart rate 88 /min [facility] 08-13-2023 06:39-0500 Respiratory rate 16 /min [facility] 08-13-2023 06:39-0500 SaO2% (BldA) [Mass fraction] 94 % [facility] 08-13-2023 06:39-0500 Systolic blood pressure 166 mm[Hg] [facility] 08-13-2023 04:05-0500 Body height 180.34 cm [facility] 08-13-2023 04:05-0500 Body mass index (BMI) [Ratio] 30.4 kg/m2 [facility] 08-13-2023 04:05-0500 Body weight 99.06 kg [facility] 05-21-2023 21:47-0500 Respiratory rate 14 /min Dr. Zayra Napier Work Phone: [facility] 05-21-2023 16:48-0500 Body height 180.[address] Zayra Napier Work Phone: [facility] 05-21-2023 16:48-0500 Body mass index (BMI) [Ratio] 39.4 kg/m2 Dr. Zayra Napier Work Phone: [facility] 05-21-2023 16:48-0500 Body temperature 98 [degF] Dr. Zayra Napier Work Phone: [facility] 05-21-2023 16:48-0500 Body weight 128.[address] Zayra Napier Work Phone: [facility] 05-21-2023 16:48-0500 Diastolic blood pressure 100 mm[Hg] Dr. Zayra Napier Work Phone: [facility] 05-21-2023 16:48-0500 Heart rate 50 /min Dr. Zayra Napier Work Phone: [facility] 05-21-2023 16:48-0500 SaO2% (BldA) [Mass fraction] 100 % Dr. Zayra Napier Work Phone: [facility] 05-21-2023 16:48-0500 Systolic blood pressure 148 mm[Hg] Dr. Zayra Napier Work Phone: [facility] 03-13-2023 10:00-0400 Body temperature 97.8 [degF] Dr. Zayra Napier Work Phone: [facility] 03-13-2023 10:00-0400 Diastolic blood pressure 74 mm[Hg] Dr. Zayra Napier Work Phone: [facility] 03-13-2023 10:00-0400 Heart rate 107 /min Dr. Zayra Napier Work Phone: [facility] 03-13-2023 10:00-0400 Respiratory rate 14 /min Dr. Zayra Napier Work Phone: [facility] 03-13-2023 10:00-0400 SaO2% (BldA) [Mass fraction] 98 % Dr. Zayra Napier Work Phone: [facility] 03-13-2023 10:00-0400 Systolic blood pressure 130 mm[Hg] Dr. Zayra Napier Work Phone: [facility] 2023 14:26-0400 Body height 180.[address] Zayra Napier Work Phone: [facility] 2023 14:26-0400 Body weight 123.[address] Zayra Napier Work Phone: [facility] 2023 00:27-0400 Body height 180.[address] Zayra Napier Work Phone: [facility] 2023 00:27-0400 Body mass index (BMI) [Ratio] 37.9 kg/m2 Dr. Zayra Napier Work Phone: [facility] 2023 00:27-0400 Body weight 123.[address] Zayra Napier Work Phone: [facility] 03-11-2023 22:16-0400 Body temperature 98.4 [degF] Dr. Zayra Napier Work Phone: [facility] 03-11-2023 22:16-0400 Diastolic blood pressure 72 mm[Hg] Dr. Zayra Napier Work Phone: [facility] 03-11-2023 22:16-0400 Heart rate 87 /min Dr. Zayra Napier Work Phone: [facility] 03-11-2023 22:16-0400 Respiratory rate 18 /min Dr. Zayra Napier Work Phone: [facility] 03-11-2023 22:16-0400 SaO2% (BldA) [Mass fraction] 91 % Dr. Zayra Napier Work Phone: [facility] 03-11-2023 22:16-0400 Systolic blood pressure 101 mm[Hg] Dr. Zayra Napier Work Phone: [facility] 03-07-2023 15:06-0400 Body mass index (BMI) [Ratio] 38.1 kg/m2 Dr. Zayra Napier Work Phone: [facility] 03-07-2023 15:06-0400 Body temperature 96 [degF] Dr. Zayra Napier Work Phone: [facility] 03-07-2023 15:06-0400 Body weight 124.[address] Zayra Napier Work Phone: [facility] 03-07-2023 15:06-0400 Diastolic blood pressure 112 mm[Hg] Dr. Zayra Napier Work Phone: [facility] 03-07-2023 15:06-0400 Heart rate 97 /min Dr. Zayra Napier Work Phone: [facility] 03-07-2023 15:06-0400 Respiratory rate 22 /min Dr. Zayra Napier Work Phone: [facility] 03-07-2023 15:06-0400 SaO2% (BldA) [Mass fraction] 97 % Dr. Zayra Napier Work Phone: [facility] 03-07-2023 15:06-0400 Systolic blood pressure 176 mm[Hg] Dr. Zayra Napier Work Phone: [facility] 03-01-2023 11:56-0400 Body mass index (BMI) [Ratio] 40.1 kg/m2 Dr. Zayra Napier Work Phone: [facility] 03-01-2023 11:56-0400 Body temperature 99.3 [degF] Dr. Zayra Napier Work Phone: [facility] 03-01-2023 11:56-0400 Body weight 130.[address] Zayra Napier Work Phone: [facility] 03-01-2023 11:56-0400 Diastolic blood pressure 78 mm[Hg] Dr. Zayra Napier Work Phone: [facility] 03-01-2023 11:56-0400 Heart rate 98 /min Dr. Zayra Napier Work Phone: [facility] 03-01-2023 11:56-0400 SaO2% (BldA) [Mass fraction] 98 % Dr. Zayra Napier Work Phone: [facility] 03-01-2023 11:56-0400 Systolic blood pressure 133 mm[Hg] Dr. Zayra Napier Work Phone: [facility] 12-14-2022 14:01-0400 Body temperature 98.2 [degF] Dr. Zayra Napier Work Phone: [facility] 12-14-2022 14:01-0400 Diastolic blood pressure 74 mm[Hg] Dr. Zayra Napier Work Phone: [facility] 12-14-2022 14:01-0400 Heart rate 85 /min Dr. Zayra Napier Work Phone: [facility] 12-14-2022 14:01-0400 Respiratory rate 16 /min Dr. Zayra Napier Work Phone: [facility] 12-14-2022 14:01-0400 SaO2% (BldA) [Mass fraction] 97 % Dr. Zayra Napier Work Phone: [facility] 12-14-2022 14:01-0400 Systolic blood pressure 144 mm[Hg] Dr. Zayra Napier Work Phone: [facility] 12-14-2022 05:42-0400 Body mass index (BMI) [Ratio] 37.3 kg/m2 Dr. Zayra Napier Work Phone: [facility] 12-14-2022 05:42-0400 Body weight 121.[address] Zayra Napier Work Phone: [facility] 12-12-2022 13:06-0400 Body height 180.[address] Zayra Napier Work Phone: [facility] 12-08-2022 22:22-0400 Body temperature 97.6 [degF] [facility] 12-08-2022 22:22-0400 Diastolic blood pressure 88 mm[Hg] [facility] 12-08-2022 22:22-0400 Heart rate 98 /min [facility] 12-08-2022 22:22-0400 Inhaled oxygen flow rate 1 L/min [facility] 12-08-2022 22:22-0400 Respiratory rate 14 /min [facility] 12-08-2022 22:22-0400 SaO2% (BldA) [Mass fraction] 97 % [facility] 12-08-2022 22:22-0400 Systolic blood pressure 176 mm[Hg] [facility] 12-08-2022 16:45-0400 Body height 180.34 cm [facility] 12-08-2022 16:45-0400 Body mass index (BMI) [Ratio] 38.5 kg/m2 [facility] 12-08-2022 16:45-0400 Body weight 125.3 kg [facility] Encounters Encounter Date Encounter Type Care Provider Facility Start: 11-26-[address] KOMAL JETER MD Facility:[facility] Start: 11-26-2024 End: 11-26-[address] KOMAL HATHAWAY MD [facility] Start: 11-26-2024 End: 11-26-[address] KOMAL HATHAWAY MD [facility] Start: 11-26-[address] ZAYRA PALENCIA DO Facility:[facility] Start: 11-19-2024 End: 11-20-2024 Emergency department patient visit Dr. Zayra Napier DO Work Phone: -Emergency Department Work Phone: Start: 11-13-[address] ZAYRA PALENCIA DO Facility:[facility] Start: 07-03-2024 End: 07-03-2024 ambulatory [facility] Facility:[facility] Start: 06-09-2024 End: 06-09-2024 Emergency department patient visit [facility] Facility:[facility] Start: 04-09-2024 End: 04-09-2024 ambulatory [facility] Facility:[facility] Start: 04-05-2024 End: 04-05-2024 Emergency department patient visit Zayra Black Facility:[facility] Start: 10-11-2023 End: 10-11-2023 ambulatory [facility] Work Phone: Start: 10-11-2023 End: 10-11-2023 Patient encounter procedure [facility] Work Phone: Start: 10-04-2023 End: 10-04-2023 ambulatory [facility] Work Phone: Start: 10-04-2023 End: 10-04-2023 Patient encounter procedure [facility]-Bettye Camacho [facility] Start: 08-23-2023 End: 08-23-2023 ambulatory [facility] Work Phone: Start: 08-23-2023 End: 08-23-2023 Patient encounter procedure [facility]-Bryon Camacho Work Phone: Start: 08-13-2023 End: 08-13-2023 Emergency department patient visit [facility]Emergency Department Work Phone: Start: 06-28-2023 End: 06-28-[address] Zayra Napier Work Phone: [facility] Work Phone: Start: 06-28-2023 End: 06-28-[address] Zayra Napier [facility] Phone[facility] Start: 05-30-2023 End: 05-30-[address] Zayra Napier Work Phone: [facility] Work Phone: Start: 05-30-2023 End: 05-30-[address] Zayra Napier Work Phone: [facility] Work Phone: Start: 05-21-2023 End: 05-21-2023 Emergency department patient visit Dr. Zayra Napier Work Phone: [facility]-Emergency Department Work Phone: Start: 04-29-2023 End: 04-29-[address] Zayra Napier Work Phone: [facility] Work Phone: Start: 04-29-2023 End: 04-29-[address] Zayra Napier Work Phone: [facility] Work Phone: Start: 03-13-2023 Non-patient / Non-visit Dr. Stacey Napier Work Phone: [facility] Work Phone: Start: 2023 Non-patient / Non-visit Dr. Stacey Napier Work Phone: [facility] Work Phone: Start: 03-11-2023 End: 03-13-2023 Evaluation and management of inpatient Dr. Zayra Napier Work Phone: [facility] Work Phone: Start: 03-11-2023 Non-patient / Non-visit Dr. Stacey Napier Work Phone: [facility] Work Phone: Start: 03-07-2023 End: 03-07-2023 Emergency department patient visit Dr. Zayra Napier Work Phone: [facility]-Emergency Department Work Phone: Start: 03-01-2023 End: 03-01-[address] Zayra Napier Work Phone: [facility] Work Phone: Start: 12-19-2022 End: 12-19-[address] Zayra Napier Work Phone: [facility] Work Phone: Start: 12-19-2022 End: 12-19-[address] Zayra Napier Work Phone: [facility] Start: 12-14-2022 Non-patient / Non-visit Dr. Stacey Napier Work Phone: [facility] Work Phone: Start: 12-13-2022 Non-patient / Non-visit Dr. Stacey Napier Work Phone: [facility] Start: 12-13-2022 End: 12-13-2022 Non-patient / Non-visit Dr. Zayra Napier Work Phone: [facility] Work Phone: Start: 12-12-2022 Non-patient / Non-visit Dr. Stacey Napier Work Phone: [facility] Start: 12-12-2022 Non-patient / Non-visit Dr. Stacey Napier Work Phone: [facility] Work Phone: Start: 12-11-2022 Non-patient / Non-visit Dr. Stacey Napier Work Phone: [facility] Work Phone: Start: 12-10-2022 End: 12-14-2022 Evaluation and management of inpatient [facility]. Zayra [facility] Work Phone: Start: 12-10-2022 Non-patient / Non-visit Dr. Stacey Napier Work Phone: [facility] Work Phone: Start: 12-09-2022 Non-patient / Non-visit Dr. Stacey Napier Work Phone: [facility] Work Phone: Start: 12-08-2022 [facility] Work [facility]: Start: 12-08-2022 Non-patient / Non-visit Dr. Stacey Napier Work Phone: [facility] Work Phone: Start: 12-08-2022 observation encounter [facility] Work Phone: Procedures Date Procedure Procedure Detail Performing Clinician Start: 11-19-[address] Zayra Napier DO Work Phone: Start: 10-11-2023 Computed tomography of abdomen and [...] of abdomen and pelvis with intravenous contrast Arthroscopy shoulder rotator cuff repair DR KOMAL HATHAWAY MD Comment on above: right bilateral Cholecystectomy DR KOMAL JETER MD Primary repair of um bilical hernia DR KOMAL HATHAWAY MD Plan of Treatment Date Care Activity Detail Author Start: 11-20-2024 [facility] Start: 08-13-2023 [facility] Start: 05-21-2023 [facility] Start: 03-13-2023 Patient discharge [facility] Start: 2023 Application of inter mittent pneumatic compression device [facility] Start: 2023 Following clinical p athway protocol [facility] Start: 2023 Ambulation without limitation [facility] Start: 2023 Assessment of risk o f venous thromboembolism [facility] Start: 2023 Insertion of cathete r into peripheral vein [facility] Start: 2023 Oxygen therapy [facility] Start: 2023 Providing care accor ding to standard [facility] Start: 2023 End: 2023 [facility] Start: 2023 Patient referral to dietitian [facility] Start: 03-11-2023 Clostridioides diffi cile DNA [Presence] in Unspecified specimen by JERILYN with probe detection [facility] Start: 03-11-2023 Verification routine [facility] Start: 03-11-2023 Admission procedure [facility] Start: 03-11-2023 [facility] Start: 03-07-2023 [facility] Start: 12-17-2022 [facility] Start: 12-16-2022 [facility] Start: 12-15-2022 [facility] Start: 12-14-2022 Patient discharge [facility] Start: 12-12-2022 [facility] Start: 12-12-2022 Referral to gastroen terology service [facility] Start: 12-12-2022 [facility] Start: 12-11-2022 Urinary bladder resi dual urine study [facility] Start: 12-10-2022 Urinary bladder resi dual urine study [facility] Start: 12-09-2022 Admission procedure [facility] Start: 12-08-2022 Assessment of risk o f venous thromboembolism [facility] Start: 12-08-2022 Care regimes management [facility] Start: 12-08-2022 Inhalation therapy procedure [facility] Start: 12-08-2022 Insertion of cathete r into peripheral vein [facility] Start: 12-08-2022 Introduction of urinary catheter [facility] Start: 12-08-2022 Measuring intake and output [facility] Start: 12-08-2022 Providing care accor ding to standard [facility] Start: 12-08-2022 Provision of activity privileges [facility] Start: 12-08-2022 [facility] Start: 12-08-2022 Following clinical p athway protocol [facility] Start: 12-08-2022 Troponin I measurement [facility] Start: 12-08-2022 [facility] Start: 12-08-2022 Gastrointestinal pat hogens panel - Stool by JERILYN with probe detection [facility] Start: 12-08-2022 Admission procedure [facility] Start: 12-08-2022 Verification routine [facility] Start: 12-08-2022 Patient referral to dietitian [facility] Ova and parasites id entified in Unspecified specimen by Light microscopy [facility] Patient Education [facility] Work Phone: Patient referral [facility] Work Phone: Payers Date Payer Category Payer Private Health Insurance [id number] 2024 Private Health Insurance [id number] 2024 Self-pay [id number] 2006 Unknown ANTHEM [id number] 1960 Unknown [id number] [id number]. [id number] 1960 Unknown [id number] 2.16. [id number] 1960 Unknown [id number] 2.16. [id number] Unknown [id number] [id number] Unknown [id number] [id number] Unknown [id number] 2.16.8 [id number] Unknown [id number] 2.16.8 [id number] Unknown [id number] 2.16.8 [id number] Social History Date Type Detail Facility Start: 12-08-2022 End: 08-13-2023 Tobacco smoking status VTIS Unknown if ever smoked [facility] Start: 09-28-2015 None [facility] Start: 09-28-2015 With Family [facility] Start: 1960 Sex Assigned At Male [facility] Start: 11-19-2024 End: 11-26-2024 Tobacco smoking status NHIS Ex-smoker (finding) [facility] Sexual Orientation [facility] laya [facility] Start: 11-04-2024 Sex Male (finding) [facility] Goals Date Patient Goal Desired Activity /State Functional Status Date Assessment Result Facility 03-13-2023 Functional status Up ad laney [facility] Work Phone: 12-14-2022 Functional status Ambulates;Up a d laney;Bathroom Privilege [facility] Work Phone: Mental Status Date Assessment Result Facility 03-13-2023 Cognitive function Appropriate;Cooperativ e [facility] Work Phone: 2023 Cognitive function Arousable To Voice/Nam e [facility] Work Phone: 03-11-2023 Cognitive function Level Of Cons ciousness Awake;Alert;Appropriate;Follow s Commands [facility] Work Phone: 12-14-2022 Cognitive function Voice/Name [facility] Work Phone: Clinical Notes 12-08-2022 to 11-20-2024 Note Date & Type Note Facility 11-20-2024 Discharge summary [facility] 11-19-2024 Discharge summary Note Date/Time November 20, 2024 12:51am [facility] Medical Records Department [address] [place] [address] Emergency Department Summary 11/19/24 MR#: [id number] Acct: [id number] Name: MORENO VILLEGAS Rep #:[id number] : 1960 64 From: Donavan Crane MD PCP: Dr. Zayra Napier DO Status:REG ER Location: ED ADDENDUM by Dr. Donavan Crane MD on 11/20/24 at 0051 At the time of discharge patient for me that he has not taken his blood pressuremeds for the last 2 days because of nausea and vomiting. This in all likelihoodexplains his elevated blood pressure. And since he is asymptomatic there is no need for urgent lowering of his blood pressure. 11/20/24 0051<Electronically signed by Donavan Crane MD> Cosigner Signature (if applicable): cc: Dr. Zayra Napier DO ~* Signed HPI History of Present Illness Chief Complaint: Nausea/Vomiting Detail of Chief Complaint: Patient presents with nausea and vomiting Informant: patient Onset/Context/Timing Onset: Yesterday Context: Sudden Onset Timing: Intermittent Quality: Patient had bilious emesis. He is now having dry heaves. Location: GI Current Severity: Severe Maximum Severity: Severe Worsened by: He states this is due to his colitis. However he has no diarrhea, blood or Relieved by: Nothing Associated Symptoms Associated Symptoms: thirst, dry mouth, orthostatic lightheadedness slight decrease in urine ou Narrative Narrative: Patient is a 64-year-old male presents with 2 days of nausea vomiting. He is now having dry heaves. Initially emesis is bilious. He denied hematemesis or coffee-ground emesis. He complains of some mild central abdominal pain. He denies constipation, diarrhea, black or maroon-colored stool. He denies blood or mucus in his stool. His last bowel movement was formed. He does not feel bloated. He denies cough, shortness of breath or difficulty breathing. He has not had any ill contacts to his knowledge. Patient denies fever, chills night sweats. Nuys weight gain or weight loss. He denies headache, visual, ocular auditory symptoms. He denies cardiac or respiratory symptoms. Prior similar symptoms: Yes Recent Illness/Hospitalization: No PFSH PFSH Medical History Former tobacco use Obesity GERD (gastroesophageal reflux disease) Hypertension Type 2 diabetes mellitus JUANA (obstructive sleep apnea) Home Medications ?Medication ?Instructions ?Recorded ?Last Taken ?Type pantoprazole 40 mg tablet,delayed 40 mg PO BID 30 days #60 tabs 12/14/22 Unknown Rx release (Protonix) amlodipine 5 mg tablet 5 mg PO DAILY 04/05/24 Unkno wn History dicyclomine 20 mg tablet 20 mg PO TID #20 tabs Unknown Rx insulin glargine 100 unit/mL (3 20 unit subcut DAILY 1 Unknown History mL) subcutaneous pen (Basaglar KwikPen U-100 Insulin) ondansetron 4 mg disintegrating 4 mg PO Q8H PRN PRN Na usea #10 tabs 04/05/24 Unknown Rx tablet rosuvastatin 20 mg tablet 20 mg PO DAILY 04/05/24 Unkn own History tirzepatide 7.5 mg/0.5 mL 7.5 mg subcut QWEEK 04/05/24 Unknown History subcutaneous pen injector (Mounjaro) ondansetron 4 mg disintegrating 4 mg PO Q8H PRN PRN Na usea #10 tabs 06/09/24 Unknown Rx tablet prednisone 20 mg tablet 40 mg (2 x 20 mg) PO DAILY # 10 tabs 06/09/24 Unknown Rx Allergy/AdvReac Type Severity Reaction Status Date / Time No Known Allergies Allergy Verified 11/19/24 20:52 Family History Mother Diabetes Heart disease Cancer Father No problems noted. Surgical History History of surgery on lower extremity History of cholecystectomy Social History household members: other details: Notes his son lives with him. Smoking Status: Former smoker alcohol intake: never substance use type: does not use ROS ROS ED Constitutional Constitutional ED: Denies chills, fever(s), subjective, sweats or weight loss Eyes Eyes: Denies blurry vision or change in vision ENT ENT ED: Denies ear pain, rhinorrhea or sore throat Cardiovascular Cardiovascular: Denies chest pain, orthopnea, palpitations, paroxysmal nocturnaldyspnea or racing heartbeat Respiratory/Chest Respiratory/Chest: Denies cough, dyspnea, dyspnea on exertion, orthopnea or paroxysmal nocturnal dyspnea Gastrointestinal Gastrointestinal: Reports abdominal pain, nausea, vomiting and other Details: Nohematemesis or coffee-ground emesis. ; Denies constipation, diarrhea or melena Genitourinary Genitourinary ED: Denies dysuria, hematuria or urinary frequency Musculoskeletal Musculoskeletal: Denies arthralgias or myalgias Integumentary Denies abscess, Abrasions or rash Neurologic Neurologic: Reports weakness; Denies headache(s) or paresthesias Endocrine Endocrinology: Denies cold intolerance or heat intolerance Hematologic/Lymphatic Hematologic/Lymphatic: Reports systems reviewed and no addt'l complaints, exceptas documented EXAM Physical Exam Const Vital Signs: 11/19/24 20:52 11/19/24 20:54 11/19/24 22:52 Temperature 97.6 F L 97.6 F L Temperature Source Oral Oral Pulse Rate 106 H 106 H 106 H Respiratory Rate 18 18 30 H Blood Pressure 188/83 H 188/83 H 167/95 H Blood Pressure Mean 118 118 119 Pulse Ox 99 99 94 Oxygen Delivery Method Room Air Room Air Room Air 11/20/24 00:00 Temperature Temperature Source Pulse Rate 115 H Respiratory Rate 25 H Blood Pressure 182/96 H Blood Pressure Mean 124 Pulse Ox 95 Oxygen Delivery Method Room Air Positive well nourished and well developed Constitutional Narrative: Patient appears ill. His skin is cool to touch. He is slightly diaphoretic. He did have emesis before I entered the room. This may be a vagal response. General Appearance ED: well developed; Negative for cyanotic, diaphoretic, NAD or pallor HEENT Reports dry mucous membranes HEENT Narrative: Head is atraumatic normocephalic. Ears normal. Nares patent. Posterior pharynx erythema exudate. Uvula midline. No deviation tongue protrusion. Mouth ED: Yes dry mucous membranes Mouth: dry mucous membranes Eyes PERRL and EOMs intact bilaterally General Eye ED: Negative for pale conjunctiva or scleral icterus Neck no lymphadenopathy, supple and no JVD Chest Wall inspection of chest normal and palpation of chest normal Resp normal respiratory effort and clear to auscultation bilaterally Cardio regular rhythm, S1 normal heart sound, S2 normal heart sound and no murmurs Rate: tachycardic GI normal to inspection, nondistended, normoactive bowel sounds, non-distended and no masses; Negative for non-tender or hepatosplenomegaly Palpation: tender periumbilical Back/Spine no CVA tenderness Extremity normal to inspection General Extremety ED: Negative for tenderness Neuro oriented x3 and CN's II-XII intact bilaterally Neuro Narrative: Patient is awake. Skin no rashes or lesions noted, no wounds and skin turgor normal Skin Narrative: Patient is slightly diaphoretic and cool to touch. There is no mottling. Thereis no delayed capillary refill. General Skin Exam: Negative for elasticity normal, jaundice or pallor MDM MDM MDM Narrative Medical decision making narrative: This may represent gastroparesis, viral illness, side effect to his Mounjaro, doubt colitis. Since clinically is dehydrated and diabetic will obtain electrolyte panel to assess anion gap, glucose, electrolytes. Nurse protocol was entered and lipase and hepatic profile was added as well because he apparently complained of upper abdominal pain. CBC to assess white count differential. History & Record Review Additional record(s) reviewed:: Prior ED visit (Last ER visit for nausea and vomiting was June 09, 2024. Note was authored by Dr. Calhoun. The note was reviewed.) and Prior labs Lab Data Attestation: I reviewed the patient's lab results. Lab results narrative: CBC is unremarkable. There is a slight shift. This could be due to to stress or viral infection. Comprehensive metabolic panel reveals no evaded bilirubin to 1.36. AST and ALT are normal. Glucose is elevated to 36. She does have a history of type 2 diabetes. CO2 was slightly low and anion gap is elevated. Lipase was normal. Labs: Laboratory Results - last 24 hr 11/19/24 21:00 WBC 8.2 RBC 4.92 Hgb 15.6 Hct 43.6 MCV 88.6 MCH 31.7 MCHC 35.8 RDW Std Deviation 37.7 RDW Coeff of Billy 11.8 Plt Count 207 MPV 10.8 Immature Gran % (Auto) 0.500 Neut % (Auto) 81.8 H Lymph % (Auto) 13.2 L Dickey % (Auto) 4.0 Eos % (Auto) 0.0 Baso % (Auto) 0.5 Absolute Neuts (auto) 6.7 Absolute Lymphs (auto) 1.08 Nucleated RBC % 0 Sodium 138 Potassium 4.4 Chloride 100 Carbon Dioxide 19.6 L Anion Gap 18 H BUN 20 H Creatinine 1.17 Estim Creat Clear Calc 86.07 Est GFR (MDRD) Non-Af 70 BUN/Creatinine Ratio 17.3 Glucose 236 H Calcium 10.1 Total Bilirubin 1.36 H AST 28 ALT 24 Alkaline Phosphatase 50 Total Protein 7.4 Albumin 4.5 Globulin 2.9 Albumin/Globulin Ratio 1.5 Lipase 36 Treatment and Re-Evaluation :: Patient was reassessed at 2254. He was asleep. He was awakened. He states hisnausea has improved. He has not vomited since he received Zofran. He has received 500 cc of the liter of normal saline was ordered. Will reassess in 30 minutes. Patient was reassessed at 2324. He is sitting up. Does state he feels better. He reports that he had dry heaves. He has no urge to urinate. Second liter of normal saline was ordered and he was treated with Reglan parentally for his dry heaves. Comments:: Patient was reassessed at 0024. He states his nausea has resolved. P.o. challenge was ordered. His blood pressure still elevated. However, there is no evidence of endorgan dysfunction. The only med listed for hypertension isamlodipine. Patient was asked if he has gastroparesis. He responded I have never heard of that. Patient did pass p.o. challenge and he has urinated. Will discharge after second liter of normal saline has infused. Vital Sign Attestation:: Patient prior ER visit blood pressures has varied from 130 systolic to up to 190 systolic. Discharge Plan Triage Chief Complaint: Nausea/Vomiting ED Provider: Donavan Crane Dx/Rx/DC Orders Clinical Impression: Nausea & vomiting, Acute dehydration, Sinus tachycardia seen on patient monitor, High anion gap metabolic acidosis, Elevated blood pressure reading withdiagnosis of hypertension, Hyperglycemia due to type 2 diabetes mellitus Instructions: ED Vomiting (Adult) Prescriptions: No Action pantoprazole [Protonix] 40 mg tablet,delayed release (DR/EC) 40 mg PO BID 30 Days Qty: 60 1RF ondansetron 4 mg tablet,disintegrating 4 mg PO Q8H PRN PRN (Reason: Nausea) Qty: 10 0RF prednisone 20 mg tablet 40 mg PO DAILY Qty: 10 0RF amlodipine 5 mg tablet 5 mg PO DAILY rosuvastatin 20 mg tablet 20 mg PO DAILY insulin glargine [Basaglar KwikPen U-100 Insulin] 100 unit/mL (3 mL) insulin pen 20 unit subcut DAILY Mounjaro 7.5 mg/0.5 mL pen injector 7.5 mg subcut QWEEK ondansetron 4 mg tablet,disintegrating 4 mg PO Q8H PRN PRN (Reason: Nausea) Qty: 10 0RF dicyclomine 20 mg tablet 20 mg PO TID Qty: 20 0RF Primary Care Provider: Zayra Napier Referrals: Zayra Napier DO [Primary Care Provider] - 1-2 Days if not improving Activity Restrictions/Additional Instructions: 1. You were prescribed Reglan to be taken by mouth for your nausea and vomitingfor the next 2 days. 2. Recommend contacting Dr. Napier for blood pressure check in 1 to 2 weeks. You may need your amlodipine dose increased or placed on additional antihypertensive medication. Print Language: [place] Disposition Disposition: Home, Self Care What to do if you have Problems For any increased pain, shortness of breath, bleeding, nausea or vomiting, chestpain, or any unexpected problems, contact your Primary Care Provider. Call [facility] ([phone]) or report to the closest Emergency Room. Call 911 if necessary. 11/20/2446 <Electronically signed by Donavan Crane MD> Cosigner Signature (if applicable): CC: Dr. Zayra Napier DO ~ Signed [facility] Work Phone: 1([phone]) 201-934406-12-2025 Hospital Discharge instructions Additional Instructions 1. You were prescribed Reglan to be taken by mouth for your nausea and vomiting for the next 2 days. 2. Recommend contacting Dr. Napier for blood pressure check in 1 to 2 weeks. You may need your amlodipine dose increased or placed on additional antihypertensive medication. [facility] Work Phone: [phone]) 941-845210-03-2023 History and physical note Author David Renner [facility] March 11, 2023 10:33pm Note Date/Time March 11, 2023 10 :26pm [facility] Medical Records Department [address] [place] [address] History & Physical Exam 03/11/232225 MR#: [id number] Acct: [id number] Name: MORENO VILLEGAS Rep #:[id number] : 1960 62 From: David Renner MD PCP: Dr. Zayra Napier, DO Status:ADM IN [place] [facility] [place] HPI - General General Date of Admission: [...] his renal function will improve withIV hydration. [facility] Medical History Former tobacco use GERD (gastroesophageal [...] (Auto) 71.0 H, Lymph % (Auto) 20.1, Dickey % (Auto) 7.9, Eos % (Auto) 0.2, [...] Sl. Cloudy, Urine pH 5.0, Ur Specific [place] 1.025, Urine Protein 100 H, Urine Glucose [...] kidney injury Charges/Coding Visit Charges Inpatient E&M: 22813 Init Hosp L2 03/11/232232 <Electronically signed by David Renner MD> Cosigner Signature (if applicable): CC: Dr. Zayra Napier DO; Dr. David Renner MD~ Signed [facility] Work Phone: 1(957) 328-459210-02-2023 Discharge summary Author Wily Maldonado [facility] 2023 12:27am Note Date/Time March 11, 2023 5: 03pm [facility] Medical Records Department [address] [place] [address] Emergency Department Summary 03/11/23 MR#: [id number] Acct: [id number] Name: MORENO VILLEGAS Rep #:[id number] : 1960 62 From: Wily Starkey PCP: Dr. Zayra Napier DO Status:ADM IN [place] [facility] [place] [place] HPI History of Present Illness Chief Complaint: [...] chills. Admits to some nausea, vomiting,and diarrhea. [facility] Medical History Former tobacco use [...] (Auto) 71.0 H Lymph % (Auto) 20.1 Dickey % (Auto) 7.9 Eos % (Auto) 0.2 [...] Sl. Cloudy Urine pH 5.0 Ur Specific [place] 1.025 Urine Protein 100 H Urine Glucose [...] Signed: Miguelito Ramirez MD at 20:22 EDT Reading Location ID and State: [place] / [place] Tel [phone], Service support , CT scan of the abdomen and [...] asinus tachycardia with a rate of 102. FL interval, QRS interval, and QTc intervals were [...] Provider] - Disposition Disposition: Acute Care Hospital [facility] What to do if you have Problems For any increased pain, shortness of breath, bleeding, nausea or vomiting, chestpain, or any unexpected problems, contact your Primary Care Provider. Call [facility] ([phone]) or report to the closest Emergency Room. Call 911 if necessary. 2326 <Electronically signed by Wily Maldonado DO> Cosigner Signature (if applicable): CC: Dr. Zayra Napier DO ~ Signed [facility] Work Phone: [phone]) 426-941407-06-2023 Procedure [facility] 12-13-2022 Procedure [facility]07-06-2023 Procedure note [facility]07-06-2023 Procedure [facility] 12-13-2022 Progress note Author Mariela Narvaez [facility] December 13, 2022 10:18am Note Date/Time December 13, 2022 7:28a m [facility] Medical Records Department [address] [place] [address] Progress Note - Hospitalist 12/13/2227 MR#: [id number] Acct: [id number] Name: MORENO VILLEGAS Rep #:[id number] : 1960 62 From: Mariela Narvaez MD PCP: Dr. Zayra Napier, DO Status:ADM IN Location: [facility] TH124-5 Reason for Visit Reason for Visit: Diagnoses [...] % (Auto) 48.0, Lymph % (Auto) 38.8, Dickey % (Auto) 11.0 H, Eos % (Auto) [...] intra-abdominal findings -Has previous history of cholecystectomy -Pro-Joel negative, lipase 76, T. bili 1.3 and [...] documentation, 30minutes Charges/Coding Visit Charges Inpatient E&M: 35881 Subs Hosp L2 12/13/22 1018 <Electronically signed by Mariela Narvaez MD> Cosigner Signature (if applicable): CC: ~ Signed [facility] Work Phone: 1(406) 745-833707-05-2023 Consult note Author Jt Olsen [facility] December 12, 2022 6:11pm Note Date/Time December 12, 2022 6:12p m [facility] Medical Records Department [address] [place] [address] Consultation - GI 12/12/22 1809 MR#: [id number] Acct: [id number] Name: MORENO VILLEGAS Rep #:[id number] : 1960 62 From: Jt Olsen DO PCP: Dr. Zayra Napier, DO Status:ADM IN Location: [place] [address] HPI Consult Data Date of Consult: 12/12/22 HPI Narrative Reason for Consultation: Nausea and vomiting HPI Narrative: MORENO VILLEGAS, is a 62 M who presents with intractable nausea vomiting and diarrhea. He has a past medical history of GERD, Former tobacco use, Obesity, Diabetes mellitus type II, HTN, JUANA who presents to the [facility] ED on 12/08/22 with history [...] years. He has never had a colonoscopy. [facility] Medical History (Updated 12/09/22 @ 14:41 by [...] % (Auto) 66.0, Lymph % (Auto) 22.5, Dickey % (Auto) 10.2 H, Eos % (Auto) [...] of 3. Charges/Coding Visit Charges Inpatient E&M: 40130 Init Hosp L2 12/12/221810 <Electronically signed by Jt Olsen DO> Cosigner Signature (if applicable): CC: Dr. Kate Carrion MD; Dr. Zayra Napier DO~ Signed [facility] Work Phone: [phone] 967-351507-05-2023 Progress note Author Mariela Narvaez [facility] December 12, 2022 9:27am Note Date/Time December 12, 2022 9:27a m [facility] Medical Records Department [address] [place] [address] Progress Note - Hospitalist 12/12/22 0926 MR#: [id number] Acct: [id number] Name: MORENO VILLEGAS Rep #:[id number] : 1960 62 From: Mariela Narvaez MD PCP: Dr. Zayra Napier, DO Status:ADM IN Location: [facility] [id number] Reason for Visit Reason for Visit: Diagnoses [...] Clarity Clear, Urine pH 6.5, Ur Specific [place] 1.015, Urine Protein 100 H, Urine Glucose [...] % (Auto) 66.0, Lymph % (Auto) 22.5, Dickey % (Auto) 10.2 H, Eos % (Auto) [...] intra-abdominal findings -Has previous history of cholecystectomy -Pro-Joel negative, lipase 76, T. bili 1.3 and [...] documentation, 36minutes Charges/Coding Visit Charges Inpatient E&M: 57964 Subs Hosp L3 12/12/22 0927 <Electronically signed by Mariela Narvaez MD> Cosigner Signature (if applicable): CC: ~ Signed [facility] Work Phone: 1(657) 768-561107-04-2023 Progress note Author Mariela Narvaez [facility] December 11, 2022 12:22pm Note Date/Time December 11, 2022 8:01a [facility] Medical Records Department [address] [place] [address] Progress Note - Hospitalist 12/11/22 0757 MR#: [id number] Acct: [id number] Name: MORENO VILLEGAS Rep #:[id number] : 1960 62 From: Mariela Narvaez MD PCP: Dr. Zayra Napier, DO Status:ADM IN Location: [place] [address]-1 Reason for Visit Reason for Visit: Diagnoses [...] % (Auto) 64.4, Lymph % (Auto) 23.9, Dickey % (Auto) 10.2 H, Eos % (Auto) [...] intra-abdominal findings -Has previous history of cholecystectomy -Pro-Joel negative, lipase 76, T. bili 1.3 and [...] documentation, 36minutes Charges/Coding Visit Charges Inpatient E&M: 60728 Subs Hosp L3 12/11/22 1222 <Electronically signed by Mariela Narvaez MD> Cosigner Signature (if applicable): CC: ~ Signed [facility] Work Phone: [phone]) 573-216207-03-2023 Progress note Author Mariela Narvaez [facility] December 10, 2022 10:01am Note Date/Time December 10, 2022 9:57a m [facility] Medical Records Department [address] [place] [address] Progress Note - Hospitalist 12/10/22 0953 MR#: [id number] Acct: [id number] Name: JIGNESHMORENO Yamilet Rep #:[id number] : 1960 62 From: Mariela Narvaez MD PCP: Dr. Zayra Napier, DO Status:ADM TIA Location: [place] [address] Reason for Visit Reason for Visit: Diagnoses [...] GFR (MDRD) Non-Af 83, BUN/Creatinine Ratio 19.4, [id number] H, Calcium 8.8 12/10/22 05:55: Hemoglobin A1c [...] intra-abdominal findings -Has previous history of cholecystectomy -Pro-Joel negative, lipase 76, T. bili 1.3 and [...] documentation, 36minutes Charges/Coding Visit Charges Inpatient E&M: 71395 Subs Hosp L3 12/10/22 1001 <Electronically signed by Mariela Narvaez MD> Cosigner Signature (if applicable): CC: ~ Signed [facility] Work Phone: 1(791) 430-487607-02-2023 Progress note Author Mariela [facility] December 09, 2022 3:08pm Note Date/Time December 09, 2022 3:08p [facility] Medical Records Department [address] [place] [address] Progress Note - Hospitalist 12/09/22 1507 MR#: [id number] Acct: [id number] Name: MORENO VILLEGAS Rep #:[id number] : 1960 62 From: Mariela Narvaez MD PCP: Dr. Zayra Napier, DO Status:ADM TIA Location: [place] [address] Hospitalist Note Initial plan for patient to leave as he was feeling better however 2 hours aftereating he developed some abdominal pain and nausea, will cancel DC for today andcontinue supportive care, did have bowel movement now so stool studies sent 12/09/22 1508 <Electronically signed by Mariela Narvaez MD> Cosigner Signature (if applicable): CC: ~ Signed [facility] Work Phone: 1(351) 704-728307-02-2023 Progress note Author Mariela [facility] December 09, 2022 3:07pm Note Date/Time December 09, 2022 8:01a [facility] Medical Records Department [address] [place] [address] Progress Note - Hospitalist 12/09/22 0754 MR#: [id number] Acct: [id number] Name: MORENO VILLEGAS Rep #:[id number] : 1960 62 From: Mariela Narvaez MD PCP: Dr. Zayra Napier, DO Status:ADM TIA Location: [facility] PY220-9 Reason for Visit Reason for Visit: Diagnoses [...] % (Auto) 68.1, Lymph % (Auto) 21.1, Dickey % (Auto) 8.9, Eos % (Auto) 0.6, [...] Sl. Cloudy, Urine pH 7.0, Ur Specific [place] 1.010, Urine Protein 30 H, Urine Glucose [...] 78.8 H, Lymph % (Auto) 12.7 L, Dickey % (Auto) 7.7, Eos % (Auto) 0.0, [...] intra-abdominal findings -Has previous history of cholecystectomy -Pro-Joel negative, lipase 76, T. bili 1.3 and [...] documentation, 36minutes Charges/Coding Visit Charges Inpatient E&M: 54431 Subs Hosp L3 12/09/22 1507 <Electronically signed by Mariela Narvaez MD> Cosigner Signature (if applicable): CC: ~ Signed [facility] Work Phone: 1(417) 605-723107-02-2023 Discharge summary Author Mariela Narvaez [facility] December 09, 2022 2:44pm Note Date/Time December 09, 2022 2:45p m [facility] Medical Records Department [address] [place] [address] Discharge Summary 12/09/22 1441 MR#: [id number] Acct: [id number] Name: MORENO VILLEGAS Rep #:[id number] : 1960 62 From: Mariela Narvaez MD PCP: Dr. Zayra Napier, DO Status:ADM TIA Location: [place] [address] Providers Date of Admission: 12/08/22 Date of Discharge: 12/09/22 Primary Care Physician: Dr. Zayra Napier, Reason For Visit: ACUTE Gastroenteritis Diagnosis Discharge [...] followed: -You had Zofran sent to the [facility] to take as needed for nausea [...] New prescription was sent in to the [facility] in [place]. If you begin taking this and have [...] % (Auto) 68.1, Lymph % (Auto) 21.1, Dickey % (Auto) 8.9, Eos % (Auto) 0.6, [...] Sl. Cloudy, Urine pH 7.0, Ur Specific [place] 1.010, Urine Protein 30 H, Urine Glucose [...] 78.8 H, Lymph % (Auto) 12.7 L, Dickey % (Auto) 7.7, Eos % (Auto) 0.0, [...] appointment* -You had Zofran sent to the [facility] pharmacy to take as needed for nausea [...] New prescription was sent in to the [facility] in [place]. If you begin taking this and have [...] Self Care Charges/Coding Visit Charges Inpatient E&M: 57068 Disch Hosp >30min 12/09/22 1444 <Electronically signed by Mariela Narvaez MD> Cosigner Signature (if applicable): CC: Dr. Zayra Napier DO; Dr. Mariela Narvaez MD~ Signed [facility] Work Phone: [phone]) [phone] Discharge summary Author Mariela Narvaez [facility] December 09, 2022 2:41pm Note Date/Time December 09, 2022 2:32p m [facility] Medical Records Department [address] [place] [address] Instructions for Home/Discharge Instructions 12/09/22 1432 MR#: [id number] Acct: [id number] Name: JIGNESHMORENO Yamilet Rep #:[id number] : 1960 62 From: Mariela Narvaez MD PCP: Dr. Zayra Napier DO Status:ADM TIA Discharge Instructions Diet Discharge [...] appointment* -You had Zofran sent to the [facility] to take as needed for nausea [...] New prescription was sent in to the [facility] in [place]. If you begin taking this and have [...] Dr. Kate Carrion MD; Dr. Zayra Napier, DO ~ Signed [facility] Work Phone: 1(688) 558-324607-02-2023 History and physical note Author Kate Carrion [facility] December 08, 2022 11:10pm Note Date/Time December 08, 2022 10:07 pm [facility] Medical Records Department [address] [place] [address] H&P Exam - Hospitalist 12/08/222202 MR#: [id number] Acct: [id number] Name: MORENO VILLEGAS Rep #:[id number] : 1960 62 From: Kate Carrion MD PCP: Dr. Zayra Napier, Status:[facility]M [facility] - General General Date of Admission: 12/08/22 Date of Service: 12/08/22 Chief Complaint: Intractable N/V/D, abdominal pain. HPI Narrative The patient is a 62 y/o M w/ PMHx: GERD, Former tobacco use, Obesity, Diabetes mellitus type II, HTN, JUANA who presents to the [facility] ED on 12/08/22 with history [...] IV x2, Phenergan 12.5 mg IM x1. [facility] Medical History (Updated 12/08/22 @ 22:59 by [...] % (Auto) 68.1, Lymph % (Auto) 21.1, Dickey % (Auto) 8.9, Eos % (Auto) 0.6, [...] Sl. Cloudy, Urine pH 7.0, Ur Specific [place] 1.010, Urine Protein 30 H, Urine Glucose [...] II, HTN, JUANA who presents to the [facility] ED on 12/08/22 with history [...] 55 minutes. Charges/Coding Visit Charges Inpatient E&M: 81016 Init Hosp L2 12/08/222308 <Electronically signed by Kate Carrion MD> Cosigner Signature (if applicable): CC: Dr. Kate Carrion MD; Dr. Zayra Napier, ~ Signed ADDENDUM by Dr. Kate Carrion MD on 12/08/22 at 2310 Addendum Also of note, [place]. His sonhas not been ill. 12/08/22 2310<Electronically signed by Kate Carrion MD> Cosigner Signature (if applicable): cc: Dr. Kate Carrion MD; Dr. Zayra Napier DO ~* Signed [facility] Work Phone: 1([phone]) 504-701707-02-2023 Discharge summary Author Rosanna Abraham [facility] December 08, 2022 10:34pm Note Date/Time December 08, 2022 5:20p m [facility] Medical Records Department [address] [place] [address] Emergency Department Summary 12/08/22 MR#: [id number] Acct: [id number] Name: MORENO VILLEGAS Rep #:[id number] : 1960 62 From: Rosanna Abraham MD PCP: Dr. Zayra Napier, DO Status:ADM TIA Location: [facility] BG846-7 [facility] <MARIS Weber - Last Filed: 12/08/22 [...] was severe and is here for evaluation. [facility] <MARIS Weber - Last Filed: 12/08/22 21:07> [facility] Medical History (Updated 12/08/22 @ 21:05 by [...] Nasal Cannula Oxygen Flow Rate (L/min) 1 MDM <MARIS Weber - Last Filed: 12/08/22 21:07> [facility] Lab Data Labs: Laboratory Results - last 24 hr 12/08/22 12/08/22 12/08/22 17:05 17:26 18:35 WBC 6.6 RBC 5.11 Hgb 16.0 Hct 45.9 MCV 89.8 MCH 31.3 MCHC 34.9 RDW Std Deviation 37.2 RDW Coeff of Billy 11.3 L Plt Count 175 MPV 10.8 Immature Gran % (Auto) 0.500 Neut % (Auto) 68.1 Lymph % (Auto) 21.1 Dickey % (Auto) 8.9 Eos % (Auto) 0.6 [...] Sl. Cloudy Urine pH 7.0 Ur Specific [place] 1.010 Urine Protein 30 H Urine Glucose [...] (Auto) Neut % (Auto) Lymph % (Auto) Dickey % (Auto) Eos % (Auto) Baso % [...] Color Urine Clarity Urine pH Ur Specific [place] Urine Protein Urine Glucose (UA) Urine Ketones [...] Abraham MD - Last Filed: 12/08/22 21:54> [facility] Lab Data Labs: Laboratory Results - last 24 hr 12/08/22 12/08/22 12/08/22 17:05 17:26 18:35 WBC 6.6 RBC 5.11 Hgb 16.0 Hct 45.9 MCV 89.8 MCH 31.3 MCHC 34.9 RDW Std Deviation 37.2 RDW Coeff of Billy 11.3 L Plt Count 175 MPV 10.8 Immature Gran % (Auto) 0.500 Neut % (Auto) 68.1 Lymph % (Auto) 21.1 Dickey % (Auto) 8.9 Eos % (Auto) 0.6 [...] Sl. Cloudy Urine pH 7.0 Ur Specific [place] 1.010 Urine Protein 30 H Urine Glucose [...] (Auto) Neut % (Auto) Lymph % (Auto) Dickey % (Auto) Eos % (Auto) Baso % [...] Color Urine Clarity Urine pH Ur Specific [place] Urine Protein Urine Glucose (UA) Urine Ketones [...] pain, Hypertension Disposition Disposition: Acute Care Hospital [facility] What to do if you have Problems For any increased pain, shortness of breath, bleeding, nausea or vomiting, chestpain, or any unexpected problems, contact your Primary Care Provider. Call [facility] ([phone]) or report to the closest Emergency Room. Call 911 if necessary. 12/08/222233 <Electronically signed by Rosanna Abraham MD> Cosigner Signature (if applicable): 12/08/222106 <Electronically signed by David POLLOCK> CC: Dr. Zayra Napier, DO ~ Signed [facility] Work Phone: 1(720) 559-185807-01-2023 Discharge summary Author Rosanna Abraham [facility] December 08, 2022 10:34pm Note Date/Time December 08, 2022 5:20p m [facility] Medical Records Department [address] [place] [address] Emergency Department Summary 12/08/22 MR#: [id number] Acct: [id number] Name: MORENO VILLEGAS Rep #:[id number] : 1960 62 From: Rosanna Abraham MD PCP: Dr. Zayra Napier, DO Status:ADM TIA Location: [address] <MARIS Weber - Last Filed: 12/08/22 [...] was severe and is here for evaluation. [facility] <MARIS Weber - Last Filed: 12/08/22 21:07> [facility] Medical History (Updated 12/08/22 @ 21:05 by [...] citrate 300 ml PO X1 #300 mL 09/07/16 [Rx Last Taken Unknown] ondansetron 4 mg [...] <MARIS Weber - Last Filed: 12/08/22 21:07> [facility] Lab Data Labs: Laboratory Results - last 24 hr 12/08/22 12/08/22 12/08/22 17:05 17:26 18:35 WBC 6.6 RBC 5.11 Hgb 16.0 Hct 45.9 MCV 89.8 MCH 31.3 MCHC 34.9 RDW Std Deviation 37.2 RDW Coeff of Billy 11.3 L Plt Count 175 MPV 10.8 Immature Gran % (Auto) 0.500 Neut % (Auto) 68.1 Lymph % (Auto) 21.1 Dickey % (Auto) 8.9 Eos % (Auto) 0.6 [...] Sl. Cloudy Urine pH 7.0 Ur Specific [place] 1.010 Urine Protein 30 H Urine Glucose [...] (Auto) Neut % (Auto) Lymph % (Auto) Dickey % (Auto) Eos % (Auto) Baso % [...] Color Urine Clarity Urine pH Ur Specific [place] Urine Protein Urine Glucose (UA) Urine Ketones [...] Abraham MD - Last Filed: 12/08/22 21:54> [facility] Lab Data Labs: Laboratory Results - last 24 hr 12/08/22 12/08/22 12/08/22 17:05 17:26 18:35 WBC 6.6 RBC 5.11 Hgb 16.0 Hct 45.9 MCV 89.8 MCH 31.3 MCHC 34.9 RDW Std Deviation 37.2 RDW Coeff of Billy 11.3 L Plt Count 175 MPV 10.8 Immature Gran % (Auto) 0.500 Neut % (Auto) 68.1 Lymph % (Auto) 21.1 Dickey % (Auto) 8.9 Eos % (Auto) 0.6 [...] Sl. Cloudy Urine pH 7.0 Ur Specific [place] 1.010 Urine Protein 30 H Urine Glucose [...] (Auto) Neut % (Auto) Lymph % (Auto) [place] % (Auto) Eos % (Auto) Baso % [...] Color Urine Clarity Urine pH Ur Specific [place] Urine Protein Urine Glucose (UA) Urine Ketones [...] & vomiting, Abdominal pain, Hypertension Disposition Disposition: [facility] What to do if you have Problems For any increased pain, shortness of breath, bleeding, nausea or vomiting, chestpain, or any unexpected problems, contact your Primary Care Provider. Call [facility] ([phone]) or report to the closest Emergency Room. Call 911 if necessary. 12/08/222233 <Electronically signed by Rosanna Abraham MD> Cosigner Signature (if applicable): 12/08/222106 <Electronically signed by David POLLOCK> CC: Dr. Zayra Napier, DO ~ Signed [facility] Work Phone: Discharge summary Author Mariela Narvaez [facility] December 14, 2022 2:45pm Note Date/Time December 14, 2022 2:45p m [facility] Medical Records Department [address] [place] [address] Instructions for Home/Discharge Instructions 12/14/22 1444 MR#: [id number] Acct: [id number] Name: MORENO VILLEGAS Rep #:[id number] : 1960 62 From: Mariela Narvaez MD PCP: Dr. Zayra Napier, DO Status:ADM IN Discharge Instructions Diet Discharge Diet: [...] to schedule your hospital follow-up appointment (ph. [phone]) -You will be discharged on Protonix 40 [...] to schedule your hospital follow-up appointment (ph. [phone])) Disposition Disposition (needs filled in before D/C Order can be placed): Home, Self Care 12/14/221444<Electronically signed by Mariela Narvaez MD>Mariela Narvaez MD CC: Dr. Kate Carrion MD; Dr. Zayra Napier DO ~ Signed [facility] Work Phone: Discharge summary Author Mariela [facility] December 14, 2022 2:52pm Note Date/Time December 14, 2022 2:52p [facility] Medical Records Department [address] [place] [address] Discharge Summary 12/14/221444 MR#: [id number] Acct: [id number] Name: MORENO VILLEGAS Rep #:[id number] : 1960 62 From: Mariela Narvaez MD PCP: Dr. Zayra Napier DO Status:ADM IN [facility] Prov[facility] Date of Admission: 12/10/22 Date of Discharge: 12/14/22 Primary Care Physician: Dr. Zayra Napier DO Consultations 12/12/22 05:55 Consult: Gastroenterology AM (NON MEDS) Consulting Provider: [facility] Reason for Consult: Intractable abd pain [...] to schedule your hospital follow-up appointment (ph. [phone]) -You will be discharged on Protonix 40 [...] % (Auto) 63.8, Lymph % (Auto) 24.2, [place] % (Auto) 10.8 H, Eos % (Auto) [...] to schedule your hospital follow-up appointment (ph. [phone]) -You will be discharged on Protonix 40 [...] to schedule your hospital follow-up appointment (. [phone])) Disposition Disposition (needs filled in before D/C Order can be placed): Home, Self Care Charges/Coding Visit Charges Inpatient E&M: 85811 Disch Hosp >30min 12/14/22 1452 <Electronically signed by Mariela Narvaez MD> Cosigner Signature (if applicable): CC: Dr. Zayra Napier DO; Dr. Mariela Narvaez MD~ Signed [facility] Work Phone: evaluation + Plan note Future Appointments [facility] Evaluation note* Diagnosis Onset Date Resolution Status Abdominal pain acute Nausea & vomiting acute [facility] Work Phone: Evaluation note* Diagnosis Onset Date Resolution Status Abdominal pain acute Colon polyps acute Duodenal ulcer disease acute Gastritis acute Gastroenteritis acute Nausea & vomiting acute Diabetes mellitus chronic [facility] Work Phone: Evaluation note* Diagnosis Onset Date Resolution Status Colon polyps acute Duodenal ulcer disease acute Gastritis acute Gastroenteritis acute Diabetes mellitus chronic Abdominal pain resolved Nausea & vomiting resolved [facility] Work Phone: Evaluation note* Diagnosis Onset Date Resolution Status Colon polyps acute Duodenal ulcer disease acute Gastritis acute Gastroenteritis acute Diabetes mellitus chronic Abdominal pain resolved Nausea & vomiting resolved COVID-19 acute Acute kidney injury acute Colitis acute Diabetes mellitus chronic [facility] Work Phone: Evaluation note* Diagnosis Onset Date Resolution Status COVID-19 acute Diabetes mellitus chronic Acute kidney injury resolved Colitis resolved [facility] Work Phone: Evaluation note* Diagnosis Onset Date Resolution Status Diabetes mellitus chronic Acute kidney injury resolved Colitis resolved [facility] Work Phone: Evaluation noteNo assessment information available [facility] Work Phone: Hospital course Narrative No data available for this section [facility] Hospital Discharge instructions Additional Instructions Please advance her diet as tolerated, return for any worsening symptoms.[facility] Work Phone: Hospital Discharge instructions Additional Instructions CT scan negative for any acute process. Laboratory studies were all stable. You had multiple bowel movements in the ED per continue oral fluids for hydration. Follow-up with your doctor.[facility] Work Phone: Hospital Discharge instructions No data available for this section [facility] Progress note No data available for this section [facility] Reason for referral (narrative)No reason for referral [facility] Work Phone: Chief Complaint and Reason for [...] Complaint n/v Chief Complaint n/v ABD PAIN Chief Complaint Admit Date n/v November 19, 2024 8:51 pm Family History Relationship Condition Age at Onset Recorded Date/T marcus mother Diabetes mellitus Unknown Cardiac disease Unknown Malignant neoplasm Unknown Advance Directives Advance Directive Response Recorded Date/ Time Advance Directives No March 15, 2021 10:39am Living Will No December 08, 2022 5 :10pm Power of Dormitory Maid No December 08, 2022 5:10pm Advance Directive Response Recorded Date/ Time Advance Directives No March 15, 2021 10:39am Living Will No December 08, 2022 1 1:20pm Power of Dormitory Maid No December 08, 2022 11:20pm Advance Directive Response Recorded Date/ Time Advance Directives No February 10:49am Living Will No March 11 4:28pm Power of Dormitory Maid No March 11 023 4:28pm Advance Directive Response Recorded Date/ Time Advance Directives No February 9:49am Living Will No March 11 11:27pm Power of Dormitory Maid No March 11 11:27pm Advance Directive Response Recorded Date/ Time Advance Directives No February 9:49am Living Will No May 21 023 6:39pm Power of Dormitory Maid No May 21, 2023 6:39pm Advance Directive Response Recorded Date/ Time Name of Medical Power of Dormitory Maid atul villegas August 13, 2023 4:07am Advance Directives No February 9:49am Living Will Yes August 13, 2023 4:07am Power of Dormitory Maid Yes August 12 4:07am Advance Directive Response Recorded Date/ Time Name of Medical Power of Dormitory Maid atul villegas August 13, 2023 5:07am Advance Directives No February 10:49am Living Will Yes August 13, 2023 5:07am Power of Dormitory Maid Yes August 12 5:07am Advance Directive Response Recorded Date/ Time Do you have a Healthcare Power of Dormitory Maid? Yes November 19, 2024 9:27pm Name of Medical Power of Dormitory Maid dee villegas November 19, 2024 9:27pm Advance Directives No February 10:49am Summary Purpose Additional Source Comments Care Teams (unrecognized sec tion and content) Care Team Personnel Name: ZAYRA NAPIER DO Member Role: Primary Care Physician Address: [address] [place] [id number]- [place] Telecom: Care Team Related Persons Name: DEE VILLEGAS Team Status: Active Member Role Status Dates [...] MD Other Provider Active Dr. Jt Olsen , DO Attending Provider Active Team Status: Active Member Role Status Dates Dr. Zayra Napier DO Primary Care Provider Active Dr. Jt Olsen , DO Attending Provider Active Team Status: [...] Dr. Jt Olsen DO Attending Provider Active Dr. Mariela Narvaez MD Referring Provider Active Team Status: Active Member Role Status Dates Dr. Zayra Napier DO Primary Care Provider Active Dr. Marlon Esquivel MD Attending Provider Active Dr. Marvel Velez MD Referring Provider Active Team Status: Inactive Member Role Status Dates Dr. Zayra Napier DO Primary Care Provider, Referrin g Provider Active Yobany Tomas PA, PA Attending Provider Active Team Status: Active Member Role Status Dates Dr. Zayra Napier DO Primary Care Provider Active Dr. Wily Maldonado DO Emergency Provider Active Dr. David Renner [...] Primary Care Provider Active Dr. Lam Yo DO Emergency Provider Active Team Status: Active [...] Primary Care Provider Active Dr. Wily Maldonado DO Emergency Provider Active Dr. David Renner MD Admit Provider, Other Provider A ctive Dr. Zayra Hinojosa , DO Attending Provider Active Team Status: Inactive Member Role Status Dates Dr. Zayra Napier DO Primary Care Provider Active Dr. Lam Yo DO Attending Provider, Emergency Provider Active Team Status: Inactive Member Role Status Dates Dr. Zayra Napier DO Primary Care Provider Active Dr. Matt Black DO Emergency Provider Active Team Status: Inactive Member Role Status Dates Dr. Zayra Napier DO Primary Care Provider, Attendin g Provider Active Team Status: Inactive Member Role Status Dates Dr. Zayra Napier DO Primary Care Provider Active Dr. Matt Black DO Attending Provider, Emergency Provide r Active Team Status: Inactive Member Role Status Dates Dr. Zayra Napier DO Primary Care Provider Active Dr. Wily Maldonado DO Emergency Provider Active Team Status: Inactive Member Role Status Dates Dr. Zayra Napier DO Primary Care Provider Active Dr. Wily Maldonado , DO Attending Provider, Emergency P rovider Active Team Status: Active Member Role Status Dates Dr. Zayra Napier DO Primary Care Provider Active Team Status: Inactive Member Role Status Dates Dr. Zayra Napier DO Primary Care Provider Active Start: November 19, 2024 End: November 20, 2024 Dr. Donavan Crane MD Referring Provider Active Sta rt: November 19, 2024 End: November 20, 2024 Dr. Donavan Crane MD Emergency Provider Active Sta rt: November 19, 2024 End: November 20, 2024 Goals (unrecognized section and content) Goals may be documented in a n alternate sectionGoals may be documented in an alternate sectionGoals may be documented in an alternate sectionGoals may be documented in an alternate sectionGoals may be documented in an alternate sectionGoals may be documented in an alternate section No data available for this section No data available for this section (unrecognized sect ion and content) No Status Records FoundNo Status Records Found INFORMATION SOURCE (unrecogn ized section and content) DATE CREATED AUTHOR 11/22/2024 [facility] DATE CREATED AUTHOR AUTHOR'S RAJANI LAWRENCE 11/26/2024 [facility] FOR RECORDS PERTAINING TO PATIENTS WHO ARE [...] BE BASED ON THE PRIMARY CLINICAL RECORDS. [employer] provides no warranty or guarantee of the accuracy or completeness of information in this document.
[2024-11-28 08:41] LABS: Hemoglobin A1c 6.6 % (<=5.6)
== END | disposition home or self-care (01) ==
LOC: LAB 08:09
PROVIDERS: PCP Family Medicine; Referring Provider Specialist; Visit Provider Specialist
DX: E11.9 Type 2 diabetes mellitus without complications (principal)
CPT/HCPCS: 36415; 83036

== ENCOUNTER 2025-02-11 14:00 | Outpatient (RCR) | payer OTHER, SELFPAY ==
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
--- NOTE | 2025-02-11 14:21 | HP.PTDCSUM ---
Discharge Summary D/C summary: It has been my pleasure to treat MORENO EGAN referred by Dr. Armando Denson MD, with the diagnosis of PRESENCE OF ARTIFICIAL KNEE JOINT ,JOINT REPLACEMENT for a total of 12 visit(s). Discharge Date: 02/11/25 Please see the following information for a summary of their discharge status. Subjective Subjective: Seen last week Wants to do own Plan RTD Oct 6 Pain Right Knee: Pain Intensity (Out of 10): 0 Overall Improvement % Improvement: 75 Objective Objective/Function: GAIT: reciprocal pattern AROM: 0-115 degrees MMT: quads 43.2 ,hams 37.8 STAIRS: alternating with rails Goals Goal 1:: Patient to be I with HEP for TKA Goal Progress: Goal Met Goal 2:: Patient to improve AROM supine knee flexion <5 degrees to 110 degrees supine knee flexion or stairs Goal Progress: Goal Met Goal 3:: Patient to ambulate with normal gladis without device Goal Progress: Goal Met Goal 4:: Patient to improve LFES score by 5-10 points to improve QOL Goal Progress: Goal Met Goal 5:: Patient to improve peak force quads/hams by 10-15# to improve gait and function Goal Progress: Goal Met Goal 6:: Patient to improve [place] Score by 5-10 points to improve QOL and function Goal Progress: Goal Met Plan Plan: D/C TO HEP AND GYM PROGRAM D/C Information Discharge Comments: hep ,gym d/c sentence: If there are questions or concerns regarding this patient's physical therapy, please feel free to call me at [phone]. Thank you for the referral of this patient. Sincerely, Amadou Baird, PT, Cert MDT, OCS Balance/Gait/Functional tests Balance/Special Test Scores Lower Extremity Functional Score: 59 TUG Test Time Seconds: 11.35 Tug Test: <20 sec.=mostly independent WOMAC Total Score: 1 WOMAC Percentage: 98.9600 Improvement % Improvement: 75
== END 2025-02-11 19:00 | disposition home or self-care (01) ==
LOC: PT 14:00
PROVIDERS: PCP Family Medicine; Referring Provider Specialist; Visit Provider Specialist
DX: Z47.1 Aftercare following joint replacement surgery (principal); Z96.651 Presence of right artificial knee joint
CPT/HCPCS: 97110; 97162; 97530